=== PATIENT | female | born 1945 | race Caucasian/White ===

== ENCOUNTER → 2019-03-07 | Outpatient (CLI) | payer SELFPAY | PROVIDERS: Family Provider Family Medicine; Visit Provider Podiatrist Foot & Ankle Surgery | DX: Z46.89 Encounter for fitting and adjustment of other specified devices (principal); M21.42 Flat foot [pes planus] (acquired), left foot; M21.41 Flat foot [pes planus] (acquired), right foot | CPT/HCPCS: L3030 ==

== ENCOUNTER 2019-03-29 08:18 | Outpatient (CLI) | payer MEDICARE, OTHER, SELFPAY | END 2019-03-29 08:19 | disposition home or self-care (01) | LOC: ONCMED 08:22 | PROVIDERS: Family Provider Family Medicine; PCP Family Medicine; Visit Provider Internal Medicine Hematology & Oncology | DX: Z45.2 Encounter for adjustment and management of vascular access device (principal) | CPT/HCPCS: 96523 ==

== ENCOUNTER 2019-04-03 14:03 | Outpatient (CLI) | payer MEDICARE, OTHER, SELFPAY ==
--- NOTE | 2019-04-03 14:21 | XRR_ITS ---
PROCEDURE INFORMATION: Exam: XR Right Finger(s) Exam date and time: 04/03/2019 2:45 PM Age: 74 years old Clinical indication: Fingers; Right; Finger(s); Patient HX: Finger pain and swelling, finger locks up; Additional info: Right middle finger pain TECHNIQUE: Imaging protocol: XR Right 3rd finger. Views: Frontal, lateral, and oblique views. COMPARISON: No relevant prior studies available. FINDINGS: Bones/joints: Joint narrowing and dorsal marginal hypertrophy at the 2nd, 3rd and 4th distal interphalangeal joints. Joint narrowing at the central 2nd, 3rd and 4th proximal interphalangeal joints. Soft tissues: Normal. XR/XR finger RT min 2V 74180 IMPRESSION: Primary osteoarthritis.
== END 2019-04-03 14:04 | disposition home or self-care (01) ==
LOC: RAD 14:07
PROVIDERS: Family Provider Family Medicine; PCP Family Medicine; Visit Provider Orthopaedic Surgery
DX: M19.041 Primary osteoarthritis, right hand (principal); M79.644 Pain in right finger(s)
CPT/HCPCS: 73140

== ENCOUNTER 2019-04-26 13:43 | Outpatient (CLI) | payer MEDICARE, OTHER, SELFPAY | END 2019-04-26 13:44 | disposition home or self-care (01) | LOC: ONCMED 13:43 | PROVIDERS: Family Provider Family Medicine; PCP Family Medicine; Visit Provider Internal Medicine Hematology & Oncology | DX: Z45.2 Encounter for adjustment and management of vascular access device (principal) | CPT/HCPCS: 96523 ==

== ENCOUNTER 2019-05-19 08:46 | Outpatient (CLI) | payer MEDICARE, OTHER, SELFPAY | END 2019-05-19 08:47 | disposition home or self-care (01) | LOC: ONCMED 08:48 | PROVIDERS: Family Provider Family Medicine; PCP Family Medicine; Visit Provider Internal Medicine Hematology & Oncology | DX: Z45.2 Encounter for adjustment and management of vascular access device (principal) | CPT/HCPCS: 96523 ==

== ENCOUNTER 2019-06-16 09:32 | Outpatient (CLI) | payer MEDICARE, OTHER, SELFPAY | END 2019-06-16 09:33 | disposition home or self-care (01) | LOC: ONCMED 09:32 | PROVIDERS: Family Provider Family Medicine; PCP Family Medicine; Visit Provider Internal Medicine Hematology & Oncology | DX: Z45.2 Encounter for adjustment and management of vascular access device (principal) | CPT/HCPCS: 96523 ==

== ENCOUNTER 2019-07-03 11:04 | Outpatient (CLI) | payer MEDICARE, OTHER, SELFPAY ==
--- NOTE | 2019-07-03 11:34 | CT_ITS ---
WS: [id number] CT CHEST, ABDOMEN, AND PELVIS TECHNIQUE: Contrast-enhanced CT of the chest, abdomen, and pelvis with coronal and sagittal reformatt ed images. CLINICAL INFORMATION: LYMPHOMA, RESTAGING COMPARISON: CT abdomen July 22, [address] chest abdomen pelvis 04/22 2018 DLP: 2606.[address] scans at [facility] use at least one of these dose optimization techniques: automat ed exposure control; mA and/or kV adjustment per patient size (includes targeted exams where dose is matched to clinical indication); or iterative reconstruction. CT CHEST: No mediastinal or hilar lymphadenopathy. Vascular calcification including coronary. No axillary lymph adenopathy. Normal caliber thoracic aorta. No suspicious pulmonary parenchymal abnormalities. No acut e pulmonary infiltrates. CT ABDOMEN AND PELVIS: Mild diffuse fatty infiltration the liver. Cholecystectomy clips. Normal splee n. Adrenal glands are normal. Normal renal parenchymal enhancement. Normal pancreas. Portal veins and splenic vein are patent. Small esophageal hiatal hernia. Slight normal caliber abdominal aorta. Aortic calcification. Normal visualized sigmoid colon. No evidence of small or large bowel obstructio n. No adenopathy in the upper abdomen. No periaortic or retroperitoneal lymphadenopathy. A no pelvic or inguinal lymphadenopathy. Advanced degenerative arthritis lumbar spine with prior burst fracture L1. Advanced degenerative dewitt ges with disc space narrowing T12-L3. Grade 1 anterolisthesis L4 on L5. CT/CT chest abd pel w con* IMPRESSION: 1. No lymphadenopathy in the chest abdomen or pelvis. 2. No acute pulmonary infiltrates. 3. Mild diffuse fatty infiltration of the liver. 4. Prior cholecystectomy.
[2019-07-03 11:38] LABS: Basophils # 0.1 10^3/uL (0.0-0.1); Basophils % 0.8 %; Eosinophils # 0.2 10^3/uL (0.0-0.8); Eosinophils % 2.7 %; Hematocrit 40.3 % (37.0-47.0); Hemoglobin 12.9 g/dL (11.5-15.3); Mean Corpuscular Hemoglobin 31.4 pg (28.0-34.0); Mean Corpuscular Volume 98.1 fL (81-99); Mean Platelet Volume 8.9 fL (7.4-10.4); Monocytes # 0.7 10^3/uL (0.2-0.9); Monocytes % 10.2 %; Neutrophils # 3.5 10^3/uL (1.8-7.7); Neutrophils % 54.7 %; Nucleated Red Blood Cells % 0 %; Platelet Count 208 10^3/cmm (130-400); Red Blood Count 4.11 10^6/uL (4.1-5.3); Red Cell Distribution Width 14.1 % (12.1-15.1); White Blood Count 6.4 10^3/uL (4.0-10.0)
[2019-07-03] MEDS: iohexol 300 mg/mL 50 mL Btl PO (11:46)
[2019-07-03 12:05] LABS: Alanine Aminotransferase 21 U/L (0-33); Albumin Level 4.2 g/dL (3.5-5.2); Alkaline Phosphatase 96 IU/L (35-105); Anion Gap 17.5 (5-19); Aspartate Amino Transferase 21 U/L (0-32); Blood Urea Nitrogen 22 mg/dL (8-23); Calcium 9.6 mg/dL (8.5-10.5); Carbon Dioxide 23 mmol/L (22-29); Chloride 103 mmol/L (98-107); Glucose 87 mg/dL (65-115); Lactate Dehydrogenase 213 U/L (135-214); Osmolality Calculated 284 mOsm/kg (285-295); Potassium 4.5 mmol/L (3.5-5.1); Sodium 139 mmol/L (136-145); Total Bilirubin 0.3 mg/dL (0.15-1.2); Total Protein 7.2 g/dL (6.6-8.7)
[2019-07-03] MEDS: iohexol 300 mg/mL 100 mL Btl IV (13:35)
== END 2019-07-03 11:05 | disposition home or self-care (01) ==
PROVIDERS: Family Provider Family Medicine; PCP Family Medicine; Visit Provider Internal Medicine Hematology & Oncology
DX: C83.33 Diffuse large B-cell lymphoma, intra-abdominal lymph nodes (principal)
CPT/HCPCS: 36415; 71260; 74177; 80053; 83615; 85025; Q9967

== ENCOUNTER 2019-07-19 09:06 | Outpatient (CLI) | payer MEDICARE, OTHER, SELFPAY ==
--- NOTE | 2019-07-19 10:39 | ONC FU_ITS ---
Dr. Baugh follow up note Patient: Francie Levine Unit #: [id number]: 1945 Dicatated By: Marc Baugh M.D.Date of Visit:July 19, 2019 Onc Med Follow-up/Prog Note History of Present Illness: Mrs. Levine is a 74-year-old female with history of abdominal pain over the last 3 months. The initial impression was musculoskeletal in origin. She was treated with steroids without much relief. In February [address] scan of abdomen pelvis which showed extensive retroperitoneal lymphadenopathy and perinephric mass . On 03/02/[address]-guided biopsy of perinephric mass. 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 Immunohistochemistry positive for CD45, CD20 weakly, BCL-2, MUM-1, PAX-5, and Ki-67. And chest x-ray showed fullness in the mediastinum. Her family reported that Mrs Levine developed mental status changes/confusion and nausea vomiting and progressive abdominal pain. She was admitted to hospital this time and the time of admission her Total calcium was around 15. She was given dose of Zometa and also started on forced diuresis with normal saline and Lasix. She was also given dose of prednisone 100 mg daily. And bone marrow aspiration and biopsy Done on 03/17/2017 showed no evidence of lymphoma involvement. Mrs Levine began treatment with Rituxan-Cytoxan, Doxorubicin, Vincristine and Prednisone on 03/17/2017. x6 till 07/07/17 CT PET scan done on 04/22/2018 showed no evidence of recurrent adenopathy throughout the chest abdomen pelvis. There is some mild soft tissue thickening in the renal sinus fat and proximal ureters although marked improvement since prior exam done on 03/15/2017 may represent residual lymphomatous infiltration of kidney but no worsening of disease or obstruction .Follow-up CT scan of abdomen pelvis done on 07/22/2018 showed no hydronephrosis in either kidney, normal renal parenchymal enhancement No abdominal lymphadenopathy, small incidental fat-containing umbilical hernia Follow-up CT scan of chest abdomen pelvis done on 07/03/2019 showed no lymphadenopathy in the chest abdomen or pelvis No acute pulmonary infiltrates, mild diffuse fatty infiltration of the liver. Came for follow-up, denies any specific complaints, no fever or chills, no nausea or vomiting, no diarrhea constipation, no night sweats, no weight loss,rather weight gain, no recent fevers, no peripheral lymphadenopathy Medications: Claritin 1 Capsule (of 10 mg) Oral daily PRN Allergies: Naproxen and OxyCODONE HCl. Review of Systems: Constitutional - Appetite is good and weight is stable. No fever, chills, hot flashes, or night sweats. Energy level is good, ENMT - No sinus congestion/drainage. No mouth sores. No sore throat or difficulty swallowing, Hematologic/Lymphatic - No abnormal bruising or bleeding, Respiratory - No shortness of breath. No cough. No pleuritic pain or hemoptysis, Cardiovascular - No angina pain. No palpitations, Gastrointestinal - No nausea or vomiting. No heartburn or acid reflux. Patient reports frequent diarrhea, no constipation. No blood in the stool or black stools, Genitourinary (F) - No dysuria or hematuria. No urinary frequency. No urgency or incontinence, Musculoskeletal - Chronic back pain, Integumentary - Denies alopecia, blistering, bruising, dry skin, facial burning, nail changes, photosensitivity, pruritus, rash and urticaria, Neurologic - No headache or dizziness. No numbness/paresthesias or other focal neurologic symptoms, Psychiatric - No anxiety or depression. No insomnia. Vital Signs: Performed on July 19, 2019 09:01 Height - 64.00 in Weight - 262 lbs (HIGH) BSA - 2.19 sq.m BMI - 44.97 (HIGH) Temperature - 98.1 F (LOW) Pulse - 85 /min Respiration - 19 /min BP - 157/90 mm(hg) (HIGH) O2 Sat - 97 % Pain - 4 Performance Status: 0 - Fully active, able to carry on all predisease activities without restrictions. (ECOG) Physical Examination: ENMT - no mouth sores or thrush or jaundice, Hematologic/Lymphatic - no peripheral lymphadenopathy, Respiratory - Lungs are clear, Cardiovascular - Regular rate and rhythm of heart, Abdomen - soft, bowel sounds present, Extremities - no edema or rash. Lab/Imaging: Test performed on Jul 03, 2019 11:25 LDH (Total) 213 U/L Sodium 139 mmol/L Potassium 4.5 mmol/L Chloride 103 mmol/L CO2 23 mmol/L Anion Gap 17.5 BUN 22 mg/dL Creatinine 0.8 mg/dL Cr Clearance (Est) 110.7000 mL/min Glucose 87 mg/dL Calcium 9.6 mg/dL Protein, Total 7.2 g/dL Albumin 4.2 g/dL Globulin 3.0 g/dL Bilirubin, Total 0.3 mg/dL ALT (SGPT) 21 U/L AST (SGOT) 21 U/L Alkaline Phosphatase 96 IU/L WBC 6.4 10 3/uL RBC 4.11 10 6/uL HGB 12.9 g/dL HCT 40.3 % MCV 98.1 fL MCH 31.4 pg MCHC 32.0 g/dL RDW 14.1 % Platelet Count 208 10 3/cmm MPV 8.9 fL Neutrophils 3.5 10 3/uL Lymphocytes 2.0 10 3/uL Monocytes 0.7 10 3/uL Eosinophils 0.2 10 3/uL Basophils 0.1 10 3/uL Neutrophil % 54.7 % Lymphocyte % 31.0 % Monocyte % 10.2 % Eosinophil % 2.7 % Basophils % 0.8 % Impression: diffuse large B-cell lymphoma non-germinal center type with a high proliferative rate, diagnosed on 03/02/2017 with perinephric mass biopsy. Clinically, stage III, with extensive central lymphadenopathy involving both sides of diaphragm No history of B symptoms Bone marrow done on 03/17/2017 showed no evidence of lymphoma involvement immunohistochemistry positive for CD45, CD20 BCL-2, MUM-1, PAX-5, Ki-67. Hypercalcemia probably due to lymphoma. Started on systemic chemotherapy CHOP on 03/17/2017 x 6 , Till 07/07/2017 CT PET scan done on 05/15/2017 showed interval resolution of abdominal lymphomatous adenopathy and no evidence of perinephric mass. Echo done on 05/29/2015 showed ejection fraction 65% no wall motion defectn. Follow-up CT of chest abdomen pelvis done on 04/22/2018 showed no evidence of recurrent adenopathy throughout the chest abdomen pelvis. There is some very mild soft tissue thickening in the renal sinus fat and proximal ureters. Although marked improvement since prior examination from 03/15/2017, this may represent disease dural lymphomatous infiltration of the kidneys. No worsening of disease or obstruction. CT scan of abdomen pelvis done on 07/22/2018 showed no abdominal lymphadenopathy, no hydronephrosis, normal renal parenchymal enhancement, small incidental fat-containing umbilical hernia, lumbar scoliosis with chronic compression of L1 vertebral body unchanged Stable grade 1 anterolisthesis L4 on L5 Plan: Discussed with patient regarding her labs white blood count 6.4 hemoglobin 11.9 hematocrit 40.3 platelets 208,000 CMP within normal limits including LDH and follow-up CT scan of chest abdomen pelvis which showed no evidence of central lymphadenopathy. Clinically, patient is doing well with no signs symptoms suggestive of recurrence of disease, her lab workup is within normal range and her follow-up CT scan of chest abdomen pelvis shows no evidence of lymphadenopathy/organomegaly e.g. confirmed complete remission We'll continue to monitor and she will return to clinic in 6 months with CBC CMP and LDH and patient is requesting Port-A-Cath removal, will refer her to Dr. sales for port removal Patient was advised to watch her weight and consider improving physical activity and watch diet to lose weight. Signed By: Marc Baugh M.D. <<Signature on File>>
== END 2019-07-19 09:07 | disposition home or self-care (01) ==
LOC: ONCMED 09:07
PROVIDERS: PCP Family Medicine; Visit Provider Internal Medicine Hematology & Oncology
DX: Z08 Encounter for follow-up examination after completed treatment for malignant neoplasm (principal); Z85.72 Personal history of non-Hodgkin lymphomas; E83.52 Hypercalcemia; Z92.21 Personal history of antineoplastic chemotherapy; Z79.899 Other long term (current) drug therapy
CPT/HCPCS: G0463

== ENCOUNTER 2019-08-07 11:33 | Day surgery (SDC) | payer MEDICARE, OTHER, SELFPAY ==
[2019-08-04 12:36] VITALS: BMI 45.8
[2019-08-07 11:49] VITALS: BP 176/96; PULSE 76; RESP 16; TEMP 36.6; O2SAT 98
[2019-08-07] MEDS: sodium chloride 0.9% 1,000 ML 100 ML IV (12:01)
--- NOTE | 2019-08-07 12:12 | P.ANESASSM_ITS ---
Pre-Anesthetic Assessment Pre-Anesthetic Assessment: Height/Weight: Height 1.63 m Weight 121.109 kg Temp Pulse Resp BP Pulse Ox 97.9 F 76 16 176/96 98 08/07/19 11:49 08/07/19 11:49 08/07/19 11:49 08/07/19 11:49 08/07/19 11:49 Preop Diagnosis: Port-A-Cath in place Proposed Procedure: Operation Date: 08/07/19 12:30 Proposed Procedures p PORT EXPLANTATION 59854 C83.30(Not Applicable) - Corey Marquez MD Familial anesthetic complications: None Was Beta Carlotta taken within 24 mel rs: N/A Last intake: Intake Last Liquid Date 08/06/19 Last Liquid Time 21:30 Last Solid Date 08/06/19 Last Solid Time 16:30 Social: Social History: No alcohol and No tobacco Exam: Pre-Anes Outpt Exam: alert, oriented x 3, clear to auscultation bilaterally and regular rate & rhythm Airway: Cervical ROM: WNL MP: 2 Dentition: False Pulmonary: Pulmonary: None reported CV/HEM: CV/HEM: None reported : : None reported Hepatic: Hepatic: None reported GI: GI: None reported Metabolic: Metabolic: Morbid obesity Musc/skel: Musc/skel: Lower Back Pain Neuropsych: Neuropsych: None reported Anesthetic Plan: ASA status: 2 Anesthesia: MAC Risk of > 500 ml blood loss (7ml/kg in children): No Meds/Allergies Current Medications: Current Medications Generic Name Dose Route Start Last Admin Trade Name Freq PRN Reason Stop Dose Admin Sodium Chloride 1,000 mls @ 100 m ls/hr 08/07/19 09:00 08/07/19 12:01 Sodium Chloride 0.9% IV 08/08/19 08:59 100 mls/hr .Q10H ANGIE Administration PFSH Anesthesia PFSH: Medical History (Updated 07/27/19 @ 08:33 by Corey Marquez MD) Port-A-Cath in place Surgical History History of left knee replacement Family History Denies family history of Anesthesia complication Bleeding disorder Social History Smoking and tobacco status: former smoker Second hand smoke exposure: No Alcohol intake: never Adopted: No Caregiver/support person: Yes Lives independently: Yes Household members: significant other Housing: House Marital status: / service: No Current occupational status: retired Current occupational exposures/hazards: No Pets and animals: Yes History of recent travel: No Leisure activites: exercise Sexually active: No Current gender identity: Female Cheli/[employer]: [employer] Data Anesthesia Cardiac Studies: No Data to Display
--- NOTE | 2019-08-07 12:28 | W.PM.OPSUD ---
Surgery/Procedure H&P Update DATE OF PROCEDURE: August 07, 2019 DATE H&P PERFORMED: 07/26/19 H&P UPDATE INFORMATION: I have reviewed H&P completed within last 30 days, I have examined patient prior to procedure and No changes to prior documentation PREOP DIAGNOSIS: Port-A-Cath in place PRIMARY INDICATION FOR PROCEDURE: The same PLANNED PROCEDURE: Operation Date: 08/07/19 12:30 Proposed Procedures p PORT EXPLANTATION 52436 C83.30(Not Applicable) - Corey Marquez MD
[2019-08-07] MEDS: lidocaine 2% INJ 20 mL INJECTION (13:00)
--- NOTE | 2019-08-07 13:04 | P.OP_ITS ---
Operative Report Date of procedure: August 07, 2019 Pre-op Diagnosis: Port-A-Cath in place Post-op diagnosis: same Procedure Done: Explantation of left subclavian Port-A-Cath Surgeon: Corey Marquez Houseman: studio technician video operator Morena Circulating nurses Ling and Brittney Anesthesia: MAC (Dmitry Beck) Estimated blood loss (mL): 5 Condition: stable Disposition: same day Brief History: This is a pleasant 74 years old female patient had a Port-A-Cath for treatment of lymphoma and she is done with her therapy, patient was referred back to me for explantation of the port. Plan of care; After thorough history physical examination and reviewing the chart, I counseled the patient for explantation of Port-A-Cath, indications, risks including pneumothorax and injury of major vascular structures, benefits, and alternatives were all discussed with the patient, patient understands and is interested to proceed. Informed consent per chart Assurance and education All questions have been answered Procedure: After identifying the patient in the holding area, informed consent per chart ,patient was then transferred to the operative suite, was placed in supine position, IV propofol was infused by the anesthesia provider and both arms were tucked, prep and drape of left upper chest region was done usual sterile technique. Time-out was done verifying the patient's name/date of /planned procedure and destination after the procedure, all were in agreement. I started by injection of lidocaine 2% at the site of the planned incision started by an transverse incision including the previous scar of the catheter placement located at the left upper chest, after removal of the sutures and dissection at the catheter was then explanted easily,at this point the catheter was removed at the same time direct pressure was applied at the site of the left subclavian stick to prevent bleeding for at least 5 minutes. The entire Port-A-Cath was taken out without complications Thorough irrigation of the left upper chest port was done followed by hemostasis, Closure using 3/0 Vicryl as subdermal sutures was achieved then 4-0 Monocryl to approximate skin edges Dry dressing Patient tolerated the procedure well, count of instruments, needles and sponges were completed at the end of the procedure.And then patient was transferred to the recovery area in stable condition. I Was present for the whole entire procedure
[2019-08-07 13:06] VITALS: BP 128/74; PULSE 72; RESP 16; TEMP 36.3; O2SAT 95
--- NOTE | 2019-08-07 13:09 | ANE.PACU2 ---
Inpatient post-anesthesia follow up: Airway intact: Yes Vital signs: Temperature 97.9 F Pulse Rate 76 Respiratory Rate 16 Blood Pressure 176/96 Pulse Oximetry 98 Oxygen Delivery Me thod Room Air Oxygen Flow Rate Fraction of Inspir ed Oxygen Hydration adequate: Yes Nausea and vomiting: No Pain level: 1 Mental status: Baseline
[2019-08-07 13:22] VITALS: BP 131/92; PULSE 66; RESP 16; TEMP 36.6; O2SAT 98
== END 2019-08-07 13:40 | disposition home or self-care (01) ==
PROVIDERS: PCP Family Medicine; Visit Provider Surgery
PROC: (CPT 36589; principal; 2019-08-07 12:30)
DX: Z45.2 Encounter for adjustment and management of vascular access device (principal); E66.01 Morbid (severe) obesity due to excess calories; Z68.42 Body mass index [BMI] 45.0-49.9, adult; Z87.891 Personal history of nicotine dependence
CPT/HCPCS: 36590; 12345; J0690; J2001; J2704; J3010; J7030

== ENCOUNTER 2020-01-17 14:05 | Outpatient (CLI) | payer MEDICARE, OTHER, SELFPAY ==
[2020-01-17 15:07] LABS: Basophils # 0.1 10^3/uL (0.0-0.1); Basophils % 0.9 %; Eosinophils # 0.2 10^3/uL (0.0-0.8); Eosinophils % 2.9 %; Hematocrit 37.5 % (37.0-47.0); Hemoglobin 11.8 g/dL (11.5-15.3); Lymphocytes # 1.9 10^3/uL (0.8-4.8); Lymphocytes % 32.5 %; Mean Corpuscular HGB Conc 31.5 g/dL (30.0-36.0); Mean Corpuscular Hemoglobin 31.4 pg (28.0-34.0); Mean Corpuscular Volume 99.7 fL (81-99); Mean Platelet Volume 8.8 fL (7.4-10.4); Monocytes # 0.5 10^3/uL (0.2-0.9); Monocytes % 9.2 %; Neutrophils # 3.15 10^3/uL (1.8-7.7); Nucleated Red Blood Cells % 0 %; Platelet Count 210 10^3/cmm (130-400); Red Blood Count 3.76 10^6/uL (4.1-5.3); Red Cell Distribution Width 13.8 % (12.1-15.1); White Blood Count 5.8 10^3/uL (4.0-10.0)
[2020-01-17 15:57] LABS: Alanine Aminotransferase 24 U/L (0-33); Alkaline Phosphatase 102 IU/L (35-105); Anion Gap 13.3 (5-19); Aspartate Amino Transferase 24 U/L (0-32); Blood Urea Nitrogen 22 mg/dL (8-23); Calcium 8.4 mg/dL (8.5-10.5); Carbon Dioxide 22 mmol/L (22-29); Chloride 106 mmol/L (98-107); Globulin 2.3 g/dL (1.3-4.6); Glucose 97 mg/dL (65-115); Lactate Dehydrogenase 212 U/L (135-214); Osmolality Calculated 287 mOsm/kg (285-295); Potassium 4.3 mmol/L (3.5-5.1); Sodium 137 mmol/L (136-145); Total Bilirubin 0.2 mg/dL (0.15-1.2); Total Protein 6.3 g/dL (6.6-8.7)
--- NOTE | 2020-01-19 12:08 | ONC FU_ITS ---
Dr. Baugh follow up note Patient: Francie Levine Unit #: [id number]: 1945 Dicatated By: Marc Baugh M.D.Date of Visit:Jan 17, 2020 Onc Med Follow-up/Prog Note History of Present Illness: Mrs. Levine is a 74-year-old female with history of abdominal pain over the last 3 months. The initial impression was musculoskeletal in origin. She was treated with steroids without much relief. In February [address] scan of abdomen pelvis which showed extensive retroperitoneal lymphadenopathy and perinephric mass . On 03/02/[address]-guided biopsy of perinephric mass. 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 Immunohistochemistry positive for CD45, CD20 weakly, BCL-2, MUM-1, PAX-5, and Ki-67. And chest x-ray showed fullness in the mediastinum. Her family reported that Mrs Levine developed mental status changes/confusion and nausea vomiting and progressive abdominal pain. She was admitted to hospital this time and the time of admission her Total calcium was around 15. She was given dose of Zometa and also started on forced diuresis with normal saline and Lasix. She was also given dose of prednisone 100 mg daily. And bone marrow aspiration and biopsy Done on 03/17/2017 showed no evidence of lymphoma involvement. Mrs Levine began treatment with Rituxan-Cytoxan, Doxorubicin, Vincristine and Prednisone on 03/17/2017. x6 till 07/07/17 CT PET scan done on 04/22/2018 showed no evidence of recurrent adenopathy throughout the chest abdomen pelvis. There is some mild soft tissue thickening in the renal sinus fat and proximal ureters although marked improvement since prior exam done on 03/15/2017 may represent residual lymphomatous infiltration of kidney but no worsening of disease or obstruction .Follow-up CT scan of abdomen pelvis done on 07/22/2018 showed no hydronephrosis in either kidney, normal renal parenchymal enhancement No abdominal lymphadenopathy, small incidental fat-containing umbilical hernia Follow-up CT scan of chest abdomen pelvis done on 07/03/2019 showed no lymphadenopathy in the chest abdomen or pelvis No acute pulmonary infiltrates, mild diffuse fatty infiltration of the liver. Came for follow-up, denies any specific complaints, no fever chills, no nausea or vomiting, no diarrhea or constipation, no night sweats, no recurrent fever, no weight loss. Medications: Claritin 1 Capsule (of 10 mg) Oral daily PRN Allergies: Naproxen and OxyCODONE HCl. Review of Systems: Review of Systems is not available for this patient. Vital Signs: Performed on Jan 17, 2020 15:28 Height - 64.00 in Weight - lbs Temperature - 97.9 F (LOW) Pulse - 82 /min Respiration - 24 /min BP - 174/87 mm(hg) (HIGH) O2 Sat - 98 % Pain - 0 Performance Status: 0 - Fully active, able to carry on all predisease activities without restrictions. (ECOG) Physical Examination: ENMT - No mouth sores, no thrush, no jaundice, no cervical lymphadenopathy, Respiratory - Lungs are clear to auscultation, Cardiovascular - Regular rate and rhythm of heart, Abdomen - Soft, bowel sounds present, Extremities - No visible edema. Lab/Imaging: Most recent lab results are not available for this patient. Impression: diffuse large B-cell lymphoma non-germinal center type with a high proliferative rate, diagnosed on 03/02/2017 with perinephric mass biopsy. Clinically, stage III, with extensive central lymphadenopathy involving both sides of diaphragm No history of B symptoms Bone marrow done on 03/17/2017 showed no evidence of lymphoma involvement immunohistochemistry positive for CD45, CD20 BCL-2, MUM-1, PAX-5, Ki-67. Hypercalcemia probably due to lymphoma. Started on systemic chemotherapy CHOP on 03/17/2017 x 6 , Till 07/07/2017 CT PET scan done on 05/15/2017 showed interval resolution of abdominal lymphomatous adenopathy and no evidence of perinephric mass. Echo done on 05/29/2015 showed ejection fraction 65% no wall motion defectn. Follow-up CT of chest abdomen pelvis done on 04/22/2018 showed no evidence of recurrent adenopathy throughout the chest abdomen pelvis. There is some very mild soft tissue thickening in the renal sinus fat and proximal ureters. Although marked improvement since prior examination from 03/15/2017, this may represent disease dural lymphomatous infiltration of the kidneys. No worsening of disease or obstruction. CT scan of abdomen pelvis done on 07/22/2018 showed no abdominal lymphadenopathy, no hydronephrosis, normal renal parenchymal enhancement, small incidental fat-containing umbilical hernia, lumbar scoliosis with chronic compression of L1 vertebral body unchanged Stable grade 1 anterolisthesis L4 on L5 Plan: Discussed with patient regarding her labs white blood count 5.8 hemoglobin 11.8 hematocrit 37.5 platelets 210,000 CMP/LDH is pending Clinically, patient is doing well with no new signs symptoms, no B symptoms her lab work-up looks reasonable but her CMP and LDH was pending, has Port-A-Cath has been removed, she will return to clinic in 6 months with CBC CMP and LDH Signed By: Marc Baugh M.D. <<Signature on File>>
== END 2020-01-17 14:06 | disposition home or self-care (01) ==
LOC: ONCMED 14:08
PROVIDERS: PCP Family Medicine; Visit Provider Internal Medicine Hematology & Oncology
DX: C85.13 Unspecified B-cell lymphoma, intra-abdominal lymph nodes (principal); E83.52 Hypercalcemia; Z92.21 Personal history of antineoplastic chemotherapy
CPT/HCPCS: 36415; 80053; 83615; 85025; G0463

== ENCOUNTER 2020-04-15 09:21 | Outpatient (CLI) | payer MEDICARE, OTHER, SELFPAY ==
--- NOTE | 2020-04-15 09:54 | A.OFFVIS_ITS ---
Patient Information Referred by: Cam Aquino Symptom onset date: 04/12/20 COVID 19 common symptoms: positive fever(s) and cough Severity: mild and moderate Other details: 97%RA Rapid Covid Cam Aquino positive on 5th [facility] COVID test results: No Data to Display outside results available, scanned Criteria/Plan Inclusion/Exclusion Criteria weight >/= 40kg, + direct test </= 10 days ago and symptom onset </= 10 days ago age >/= 65 not requiring hospitalization, not requiring oxygen (if not chronically on oxygen) and no increase oxygen requirement (if chronically on oxygen) Patient education patient/caregiver received/reviewed fact sheet, Emergency Use A uthorization/unapproved drug status discussed with patient/caregiver, alternatives to this treatment discussed with patient/caregiver, risks and benefits of medication reviewed with patient/caregiver, patient/caregiver given opportunity for questions, which were answered and patient/caregiver consents to receiving Monoclonal Antibody Treatment Plan for treatment Meets criteria for Monoclonal Antibody infusion Ordering Monoclonal Antibody infusion for today
[2020-04-15 09:58] VITALS: BP 171/97; PULSE 81; RESP 24; TEMP 35.8; O2SAT 97; BMI 46.3
[2020-04-15 11:15] VITALS: BP 136/83; PULSE 67; RESP 17; TEMP 36.1; O2SAT 96
[2020-04-15 12:12] VITALS: BP 138/81; PULSE 66; RESP 18; O2SAT 96
== END 2020-04-15 12:10 | disposition home or self-care (01) ==
LOC: OPS 09:23
PROVIDERS: PCP Family Medicine; Referring Provider Nurse Practitioner Family; Visit Provider Nurse Practitioner Family
DX: U07.1 COVID-19 (principal)
CPT/HCPCS: 96365

== ENCOUNTER 2020-07-23 14:23 | Outpatient (CLI) | payer MEDICARE, OTHER, SELFPAY ==
[2020-07-23 15:06] LABS: Basophils # 0.1 10^3/uL (0.0-0.1); Eosinophils # 0.4 10^3/uL (0.0-0.8); Eosinophils % 6.1 %; Hematocrit 39.1 % (37.0-47.0); Hemoglobin 12.3 g/dL (11.5-15.3); Lymphocytes # 1.7 10^3/uL (0.8-4.8); Lymphocytes % 27.1 %; Mean Corpuscular HGB Conc 31.5 g/dL (30.0-36.0); Mean Corpuscular Hemoglobin 31.1 pg (28.0-34.0); Mean Platelet Volume 9.2 fL (7.4-10.4); Monocytes # 0.6 10^3/uL (0.2-0.9); Monocytes % 9.1 %; Neutrophils # 3.52 10^3/uL (1.8-7.7); Neutrophils % 56.1 %; Nucleated Red Blood Cells % 0 %; Platelet Count 254 10^3/cmm (130-400); Red Blood Count 3.95 10^6/uL (4.1-5.3); Red Cell Distribution Width 14.4 % (12.1-15.1); White Blood Count 6.3 10^3/uL (4.0-10.0)
[2020-07-23 15:53] LABS: Alanine Aminotransferase 13 U/L (0-33); Albumin Level 3.9 g/dL (3.5-5.2); Alkaline Phosphatase 83 IU/L (35-105); Anion Gap 17.4 (5-19); Aspartate Amino Transferase 18 U/L (0-32); Blood Urea Nitrogen 19 mg/dL (8-23); Calcium 8.4 mg/dL (8.5-10.5); Carbon Dioxide 23 mmol/L (22-29); Chloride 105 mmol/L (98-107); Globulin 3.1 g/dL (1.3-4.6); Glucose 94 mg/dL (65-115); Osmolality Calculated 294 mOsm/kg (285-295); Potassium 4.4 mmol/L (3.5-5.1); Sodium 141 mmol/L (136-145); Total Bilirubin 0.2 mg/dL (0.15-1.2)
--- NOTE | 2020-07-23 16:19 | ONC FU_ITS ---
Dr. Baugh follow up note Patient: Francie Levine Unit #: [id number]: 1945 Dicatated By: Marc Baugh M.D.Date of Visit:July 23, 2020 Onc Med Follow-up/Prog Note History of Present Illness: Mrs. Levine is a 75-year-old female with history of abdominal pain over the last 3 months. The initial impression was musculoskeletal in origin. She was treated with steroids without much relief. In February [address] scan of abdomen pelvis which showed extensive retroperitoneal lymphadenopathy and perinephric mass . On 03/02/[address]-guided biopsy of perinephric mass. 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 Immunohistochemistry positive for CD45, CD20 weakly, BCL-2, MUM-1, PAX-5, and Ki-67. And chest x-ray showed fullness in the mediastinum. Her family reported that Mrs Levine developed mental status changes/confusion and nausea vomiting and progressive abdominal pain. She was admitted to hospital this time and the time of admission her Total calcium was around 15. She was given dose of Zometa and also started on forced diuresis with normal saline and Lasix. She was also given dose of prednisone 100 mg daily. And bone marrow aspiration and biopsy Done on 03/17/2017 showed no evidence of lymphoma involvement. Mrs Levine began treatment with Rituxan-Cytoxan, Doxorubicin, Vincristine and Prednisone on 03/17/2017. x6 till 07/07/17 CT PET scan done on 04/22/2018 showed no evidence of recurrent adenopathy throughout the chest abdomen pelvis. There is some mild soft tissue thickening in the renal sinus fat and proximal ureters although marked improvement since prior exam done on 03/15/2017 may represent residual lymphomatous infiltration of kidney but no worsening of disease or obstruction .Follow-up CT scan of abdomen pelvis done on 07/22/2018 showed no hydronephrosis in either kidney, normal renal parenchymal enhancement No abdominal lymphadenopathy, small incidental fat-containing umbilical hernia Follow-up CT scan of chest abdomen pelvis done on 07/03/2019 showed no lymphadenopathy in the chest abdomen or pelvis No acute pulmonary infiltrates, mild diffuse fatty infiltration of the liver. Came for follow-up, denies any specific complaints, no fever chills, no nausea vomiting, no diarrhea or constipation for her chronic back pain she recently underwent nerve stimulator placement in her spine. Denies any night sweats denies any weight loss denies any recurrent fever denies any peripheral lymphadenopathy or abdominal fullness Medications: Claritin 1 Capsule (of 10 mg) Oral daily PRN Allergies: Naproxen and OxyCODONE HCl. Review of Systems: Review of Systems is not available for this patient. Vital Signs: Performed on July 23, 2020 15:42 Height - 64.00 in Weight - 267 lbs (HIGH) BSA - 2.21 sq.m BMI - 45.83 (HIGH) Temperature - 98.0 F (LOW) Pulse - 99 /min Respiration - 18 /min BP - 162/91 mm(hg) (HIGH) O2 Sat - 98 % Pain - 0 Performance Status: Perf. Status is not available for this patient. Physical Examination: ENMT - No mouth sores, no thrush, no jaundice, No cervical or axillary lymphadenopathy, Respiratory - Lungs are clear to auscultation, Cardiovascular - Regular rate and rhythm of heart, Abdomen - Soft, bowel sounds present, Extremities - No visible edema. Lab/Imaging: Most recent lab results are not available for this patient. Impression: diffuse large B-cell lymphoma non-germinal center type with a high proliferative rate, diagnosed on 03/02/2017 with perinephric mass biopsy. Clinically, stage III, with extensive central lymphadenopathy involving both sides of diaphragm No history of B symptoms Bone marrow done on 03/17/2017 showed no evidence of lymphoma involvement immunohistochemistry positive for CD45, CD20 BCL-2, MUM-1, PAX-5, Ki-67. Hypercalcemia probably due to lymphoma. Started on systemic chemotherapy [facility] on 03/17/2017 x 6 , Till 07/07/2017 CT PET scan done on 05/15/2017 showed interval resolution of abdominal lymphomatous adenopathy and no evidence of perinephric mass. Echo done on 05/29/2015 showed ejection fraction 65% no wall motion defectn. Follow-up CT of chest abdomen pelvis done on 04/22/2018 showed no evidence of recurrent adenopathy throughout the chest abdomen pelvis. There is some very mild soft tissue thickening in the renal sinus fat and proximal ureters. Although marked improvement since prior examination from 03/15/2017, this may represent disease dural lymphomatous infiltration of the kidneys. No worsening of disease or obstruction. CT scan of abdomen pelvis done on 07/22/2018 showed no abdominal lymphadenopathy, no hydronephrosis, normal renal parenchymal enhancement, small incidental fat-containing umbilical hernia, lumbar scoliosis with chronic compression of L1 vertebral body unchanged Stable grade 1 anterolisthesis L4 on L5 Plan: Discussed with patient regarding her labs white blood count 6.3 hemoglobin 12.3 compared to 11.8 previously, hematocrit 39.1 platelets 254,000 CMP within normal limits Clinically, patient doing well with no new signs symptoms, no B symptoms suggestive of recurrence of disease, her lab work-up is within normal range, will continue to monitor return to clinic in 6 months with CBC CMP/LDH Signed By: Marc Baugh M.D. <<Signature on File>>
== END 2020-07-23 14:24 | disposition home or self-care (01) ==
LOC: ONCMED 14:25
PROVIDERS: PCP Family Medicine; Visit Provider Internal Medicine Hematology & Oncology
DX: Z08 Encounter for follow-up examination after completed treatment for malignant neoplasm (principal); Z85.72 Personal history of non-Hodgkin lymphomas; E83.52 Hypercalcemia; Z92.21 Personal history of antineoplastic chemotherapy
CPT/HCPCS: 36415; 80053; 85025; 99214

== ENCOUNTER 2021-02-14 08:15 | Emergency (ER) | payer MEDICARE, OTHER, SELFPAY ==
[2021-02-14 08:30] VITALS: BP 156/80; PULSE 101; RESP 20; TEMP 37.4; O2SAT 95; BMI 44.6
[2021-02-14 08:42] VITALS: BP 156/80; PULSE 102; RESP 19; TEMP 37.4; O2SAT 95
--- NOTE | 2021-02-14 08:43 | W.ED.GENADLT ---
Documented by User: ELVIN Gray 02/14/21 11:30 HPI - General Adult General: Chief complaint: General Medical Stated complaint: Hurting all over POSS Dehydration Time Seen by Provider: 02/14/21 08:24 History of Present Illness: HPI narrative: Patient states she started with major joint pain last night. Says she had a drink all day yesterday because she was busy and her stomach is little bit upset. She started drinking some fluid last night but feels she got behind in her required intake. Patient says she does not feel good today is just achy. Denies vomiting diarrhea or urination type problems states she is not had a fever. Says just that her joints are hurting. Onset (ago): hour(s) Severity: moderate Quality: aching Pain Consistency: constant Relieving factors: none Associated symptoms: Reports nausea; Deny chest pain, dyspnea, headache(s) or rash Review of Systems Const: Denies: fever(s), chills or body aches Eyes: Denies: change in vision or blurry vision ENMT: Denies: throat pain or nasal congestion Card: Denies: chest pain or dyspnea on exertion Resp: Denies: dyspnea, productive cough or non-productive cough GI: Reports: nausea Musc: Reports: joint pain (Most major joints, denies swelling.); Denies: extremity pain Skin/Breast: Denies: rash Neuro: Denies: headache(s) Psych: Denies: anxiety or depression Wally/Lymph: Denies: easy bruising PFSH ED PFSH: Medical History (Updated 02/14/21 @ 11:26 by ELVIN Gray) Port-A-Cath in place Surgical History History of left knee replacement Family History Denies family history of Anesthesia complication Bleeding disorder Social History Smoking and tobacco status: former smoker Second hand smoke exposure: No Alcohol intake: never Adopted: No Caregiver/support person: Yes Lives independently: Yes Household members: significant other Housing: House Marital status: / service: No Current occupational status: retired Current occupational exposures/hazards: No Pets and animals: Yes History of recent travel: No Leisure activites: exercise Sexually active: No Current gender identity: Female Cheli/Roman Catholic: Muslim Physical Exam Const: COMMON NORMALS: no acute distress (Child appears very well is playful in no distress) GENERAL APPEARANCE: cooperative HENMT: COMMON NORMALS: normocephalic, external ears normal, EAC's normal, TM's normal bilaterally and Normal external nose present HEAD & SCALP: normal to inspection and normocephalic FACE & SINUS: normal facial exam NOSE: Normal external nose present and No nasal discharge present EXTERNAL EAR: Yes external ears normal EXTERNAL AUDITORY CANAL: EAC's normal TYMPANIC MEMBRANE: TM's normal bilaterally MOUTH: Normal oral and palatal mucosa present THROAT: posterior oropharynx normal Eye: COMMON NORMALS: conjunctivae normal CONJUNCTIVA: Yes conjunctivae normal Lymph: LYMPHATIC: no lymphadenopathy noted Chest: COMMONS NORMALS: normal inspection of the chest Resp: COMMON NORMALS: normal respiratory effort, No retractions, No use of accessory muscles and clear to auscultation bilaterally AUSCULTATION: clear to auscultation bilaterally Cardio: COMMON NORMALS: regular rate and regular rhythm RATE: regular rate RHYTHM: regular rhythm GI: COMMON NORMALS: Normal to inspection, nondistended, normoactive bowel sounds present Extremity: COMMON NORMALS: normal to inspection Skin: COMMON NORMALS: no rashes or lesions noted GENERAL SKIN EXAM: no rashes or lesions noted Course Vital Signs: Vital signs: Vital Signs Temperature 98.7 F 02/14/21 12:44 Pulse Rate 87 02/14/21 12:44 Respiratory Rate 18 02/14/21 12:44 Blood Pressure 106/44 02/14/21 12:44 Pulse Oximetry 87 L 02/14/21 12:44 MDM - General Adult MDM Narrative: Medical decision making narrative: Patient presents here with joint pain. Vital signs are stable. Patient felt she got dehydrated yesterday did not drink any water while she is out and about doing a lot. Patient recently been on prednisone and she is unsure the dose and also taken Augmentin. Anion gap is closed high normal. CRP is elevated 125. White count is elevated 15.6 with a slight left shift and you a is positive for mild UTI. Think combination of her taking prednisone and possibly getting dehydrated and a mild UTI have contributed to how she fell today. She did feel better with a liter of fluid and Toradol 15 mg IV. Patient encouraged to drink fluids, follow-up Dr. Garibay first next week and also Dr. Baugh her oncologist for reevaluation of her lymphoma that is been in remission. The case was discussed with Dr. Pederson her ER about possibility of recurrence of lymphoma and labs do not tend to point at that with her calcium level being normal lung other labs. Lab Data: Labs: Lab Results 02/14/21 02/14/21 02/14/21 09:20 09:20 10:11 WBC RBC Hgb Hct MCV MCH MCHC RDW Plt Count MPV Neut % (Auto) Lymph % (Auto) [place] % (Auto) Eos % (Auto) Baso % (Auto) Neut # (Auto) Lymph # (Auto) [place] # (Auto) Eos # (Auto) Baso # (Auto) Nucleated RBC % (a uto) Nucleated RBCs # Sodium Potassium Chloride Carbon Dioxide Anion Gap BUN Creatinine GFR Calculation Glucose Calculated Osmolal ity Calcium Total Bilirubin AST ALT Alkaline Phosphata se C-Reactive Protein Total Protein Albumin Globulin Urine Color Straw (Yellow) Urine Appearance Clear (CLEAR) Urine pH 5 (5-7) Ur Specific Gravit y 1.010 (1.005-1.030) Urine Protein Neg (Negative) Urine Glucose (UA) Norm (Normal) Urine Ketones Negative (Negative) Urine Blood 2+ H (Negative) Urine Nitrate Negative (Negative) Urine Bilirubin Neg (Negative) Urine Urobilinogen Norm mg/dL mg/dL (Negative) Ur Leukocyte Noris ase 2+ H (Negative) Urine RBC 10-15 /hpf H /hpf (0-2) Urine WBC 15-25 /hpf H /hpf (0-5) Ur Squamous Epith Cells 0-4 /hpf H /hpf (0-5) Amorphous Sediment Not Reportable Urine Bacteria Trace /hpf /hpf (NONE) Influenza Type A A g Negative (Negative) Influenza Type B A g Negative (Negative) SARS-CoV-2 Ag (Rap id) Negative (Negative) 02/14/21 02/14/21 10:20 10:20 WBC 15.6 10^3/uL H 10 ^3/uL (4.0-10.0) RBC 4.31 10^6/uL 10^6 /uL (4.1-5.3) Hgb 13.6 g/dL g/dL (11.5-15.3) Hct 42.4 % % (37.0-47.0) MCV 98.4 fl fl (81-99) MCH 31.6 pg pg (28.0-34.0) MCHC 32.1 g/dL g/dL (30.0-36.0) RDW 14.3 % % (12.1-15.1) Plt Count 219 10^3/cmm 10^3 /cmm (130-400) MPV 9.3 fL fL (7.4-10.4) Neut % (Auto) 79.6 % % Lymph % (Auto) 14.1 % % [place] % (Auto) 5.2 % % Eos % (Auto) 0.3 % % Baso % (Auto) 0.4 % % Neut # (Auto) 12.43 10^3/uL H 1 0^3/uL (1.8-7.7) Lymph # (Auto) 2.2 10^3/uL 10^3/ uL (0.8-4.8) [place] # (Auto) 0.8 10^3/uL 10^3/ uL (0.2-0.9) Eos # (Auto) 0.1 10^3/uL 10^3/ uL (0.0-0.8) Baso # (Auto) 0.1 10^3/uL 10^3/ uL (0.0-0.1) Nucleated RBC % (a uto) 0 % % Nucleated RBCs # 0.0 /100WBC /100W BC Sodium 136 mmol/L mmol/L (136-145) Potassium 4.6 mmol/L mmol/L (3.5-5.1) Chloride 103 mmol/L mmol/L (98-107) Carbon Dioxide 20 mmol/L L mmol/ L (22-29) Anion Gap 17.6 (5-19) BUN 15 mg/dL mg/dL (8-23) Creatinine 0.7 mg/dL mg/dL (0.5-0.9) GFR Calculation Not Reportable Glucose 106 mg/dL mg/dL (65-115) Calculated Osmolal ity 283 mOsm/kg L mOs m/kg (285-295) Calcium 8.3 mg/dL L mg/dL (8.5-10.5) Total Bilirubin 0.5 mg/dL mg/dL (0.15-1.2) AST 23 U/L U/L (0-32) ALT 24 U/L U/L (0-33) Alkaline Phosphata se 77 IU/L IU/L (35-105) C-Reactive Protein 125.2 mg/L H mg/L (0.0-4.9) Total Protein 6.8 g/dL g/dL (6.6-8.7) Albumin 4.0 g/dL g/dL (3.5-5.2) Globulin 2.8 g/dL g/dL (1.3-4.6) Urine Color Urine Appearance Urine pH Ur Specific Gravit y Urine Protein Urine Glucose (UA) Urine Ketones Urine Blood Urine Nitrate Urine Bilirubin Urine Urobilinogen Ur Leukocyte Noris ase Urine RBC Urine WBC Ur Squamous Epith Cells Amorphous Sediment Urine Bacteria Influenza Type A A g Influenza Type B A g SARS-CoV-2 Ag (Rap id) Discharge Plan Discharge Patient Disposition: Home Clinical Impression: Acute UTI Joint pain Qualifiers: Joint pain location: other joint Qualified Code(s): M25.59 - Pain in other specified joint Condition: Stable Prescriptions: New cephalexin 500 mg capsule 500 mg PO Q8H 7 Days Qty: 21 RF: 0 Celebrex 100 mg capsule 100 mg PO BID Qty: 20 RF: 0 Discontinued amoxicillin-pot clavulanate 875-125 mg tablet 1 tab PO BID RF: 0 No Action Claritin 10 mg Tablet 10 mg PO DAILY PRN (Reason: Allergy Symptoms) RF: 0 Discharge Orders: Discharge ED (Routine); Ordered 02/14/21 Ordered By: Artemio Shannon Referrals: Nils Gambino, [Primary Care Provider] - Discharge Diet: Usual diet Discharge Activity: Increase activity as tolerated Activity Restrictions/Additional Instructions: Follow-up with medical provider as directed. Take medications as prescribed. Return to the ER or your medical provider if condition worsens. Please read and understand discharge instructions. If any questions ask please. Stop Augmentin. Take new antibiotic Keflex. Do not take any more prednisone. Follow-up Dr. Garibay or return here if worsening symptoms. Coding Level of Care Code ED Business [employer] Faculty Member for Chg Fwd Exam Comprehensive Documented by User: Edwin Cruz DO 02/14/21 16:02 HPI - General Adult General: Chief complaint: General Medical Stated complaint: Hurting all over POSS Dehydration Time Seen by Provider: 02/14/21 08:24 PFSH ED PFSH: Medical History (Updated 02/14/21 @ 11:26 by ELVIN Gray) Port-A-Cath in place Surgical History History of left knee replacement Family History Denies family history of Anesthesia complication Bleeding disorder Social History Smoking and tobacco status: former smoker Second hand smoke exposure: No Alcohol intake: never Adopted: No Caregiver/support person: Yes Lives independently: Yes Household members: significant other Housing: House Marital status: / service: No Current occupational status: retired Current occupational exposures/hazards: No Pets and animals: Yes History of recent travel: No Leisure activites: exercise Sexually active: No Current gender identity: Female Cheli/Roman Catholic: Muslim Course Vital Signs: Vital signs: Vital Signs Temperature 98.7 F 02/14/21 12:44 Pulse Rate 87 02/14/21 12:44 Respiratory Rate 18 02/14/21 12:44 Blood Pressure 106/44 02/14/21 12:44 Pulse Oximetry 87 L 02/14/21 12:44 MDM - General Adult MDM Narrative: Medical decision making narrative: Chart reviewed and patient discussed with midlevel. Agree with assessment and plan. Lab Data: Labs: Lab Results 02/14/21 02/14/21 02/14/21 09:20 09:20 10:11 WBC RBC Hgb Hct MCV MCH MCHC RDW Plt Count MPV Neut % (Auto) Lymph % (Auto) [place] % (Auto) Eos % (Auto) Baso % (Auto) Neut # (Auto) Lymph # (Auto) [place] # (Auto) Eos # (Auto) Baso # (Auto) Nucleated RBC % (a uto) Nucleated RBCs # Sodium Potassium Chloride Carbon Dioxide Anion Gap BUN Creatinine GFR Calculation Glucose Calculated Osmolal ity Calcium Total Bilirubin AST ALT Alkaline Phosphata se C-Reactive Protein Total Protein Albumin Globulin Urine Color Straw (Yellow) Urine Appearance Clear (CLEAR) Urine pH 5 (5-7) Ur Specific Gravit y 1.010 (1.005-1.030) Urine Protein Neg (Negative) Urine Glucose (UA) Norm (Normal) Urine Ketones Negative (Negative) Urine Blood 2+ H (Negative) Urine Nitrate Negative (Negative) Urine Bilirubin Neg (Negative) Urine Urobilinogen Norm mg/dL mg/dL (Negative) Ur Leukocyte Noris ase 2+ H (Negative) Urine RBC 10-15 /hpf H /hpf (0-2) Urine WBC 15-25 /hpf H /hpf (0-5) Ur Squamous Epith Cells 0-4 /hpf H /hpf (0-5) Amorphous Sediment Not Reportable Urine Bacteria Trace /hpf /hpf (NONE) Influenza Type A A g Negative (Negative) Influenza Type B A g Negative (Negative) SARS-CoV-2 Ag (Rap id) Negative (Negative) 02/14/21 02/14/21 10:20 10:20 WBC 15.6 10^3/uL H 10 ^3/uL (4.0-10.0) RBC 4.31 10^6/uL 10^6 /uL (4.1-5.3) Hgb 13.6 g/dL g/dL (11.5-15.3) Hct 42.4 % % (37.0-47.0) MCV 98.4 fl fl (81-99) MCH 31.6 pg pg (28.0-34.0) MCHC 32.1 g/dL g/dL (30.0-36.0) RDW 14.3 % % (12.1-15.1) Plt Count 219 10^3/cmm 10^3 /cmm (130-400) MPV 9.3 fL fL (7.4-10.4) Neut % (Auto) 79.6 % % Lymph % (Auto) 14.1 % % [place] % (Auto) 5.2 % % Eos % (Auto) 0.3 % % Baso % (Auto) 0.4 % % Neut # (Auto) 12.43 10^3/uL H 1 0^3/uL (1.8-7.7) Lymph # (Auto) 2.2 10^3/uL 10^3/ uL (0.8-4.8) [place] # (Auto) 0.8 10^3/uL 10^3/ uL (0.2-0.9) Eos # (Auto) 0.1 10^3/uL 10^3/ uL (0.0-0.8) Baso # (Auto) 0.1 10^3/uL 10^3/ uL (0.0-0.1) Nucleated RBC % (a uto) 0 % % Nucleated RBCs # 0.0 /100WBC /100W BC Sodium 136 mmol/L mmol/L (136-145) Potassium 4.6 mmol/L mmol/L (3.5-5.1) Chloride 103 mmol/L mmol/L (98-107) Carbon Dioxide 20 mmol/L L mmol/ L (22-29) Anion Gap 17.6 (5-19) BUN 15 mg/dL mg/dL (8-23) Creatinine 0.7 mg/dL mg/dL (0.5-0.9) GFR Calculation Not Reportable Glucose 106 mg/dL mg/dL (65-115) Calculated Osmolal ity 283 mOsm/kg L mOs m/kg (285-295) Calcium 8.3 mg/dL L mg/dL (8.5-10.5) Total Bilirubin 0.5 mg/dL mg/dL (0.15-1.2) AST 23 U/L U/L (0-32) ALT 24 U/L U/L (0-33) Alkaline Phosphata se 77 IU/L IU/L (35-105) C-Reactive Protein 125.2 mg/L H mg/L (0.0-4.9) Total Protein 6.8 g/dL g/dL (6.6-8.7) Albumin 4.0 g/dL g/dL (3.5-5.2) Globulin 2.8 g/dL g/dL (1.3-4.6) Urine Color Urine Appearance Urine pH Ur Specific Gravit y Urine Protein Urine Glucose (UA) Urine Ketones Urine Blood Urine Nitrate Urine Bilirubin Urine Urobilinogen Ur Leukocyte Noris ase Urine RBC Urine WBC Ur Squamous Epith Cells Amorphous Sediment Urine Bacteria Influenza Type A A g Influenza Type B A g SARS-CoV-2 Ag (Rap id) Discharge Plan Discharge Patient Disposition: Home Clinical Impression: Acute UTI Joint pain Qualifiers: Joint pain location: other joint Qualified Code(s): M25.59 - Pain in other specified joint Condition: Stable Prescriptions: New cephalexin 500 mg capsule 500 mg PO Q8H 7 Days Qty: 21 RF: 0 Celebrex 100 mg capsule 100 mg PO BID Qty: 20 RF: 0 Discontinued amoxicillin-pot clavulanate 875-125 mg tablet 1 tab PO BID RF: 0 No Action Claritin 10 mg Tablet 10 mg PO DAILY PRN (Reason: Allergy Symptoms) RF: 0 Discharge Orders: Discharge ED (Routine); Ordered 02/14/21 Ordered By: Artemio Shannon Referrals: Nils Gambino DO [Primary Care Provider] - Discharge Diet: Usual diet Discharge Activity: Increase activity as tolerated Activity Restrictions/Additional Instructions: Follow-up with medical provider as directed. Take medications as prescribed. Return to the ER or your medical provider if condition worsens. Please read and understand discharge instructions. If any questions ask please. Stop Augmentin. Take new antibiotic Keflex. Do not take any more prednisone. Follow-up Dr. Garibay or return here if worsening symptoms. Coding Level of Care Code ED [employer] Faculty Member for Tono Mejia Exam Comprehensive
[2021-02-14 09:49] LABS: Influenza A by IFA Negative (Negative); Influenza B by IFA Negative (Negative); SARS Covid-2 Antigen Negative (Negative)
[2021-02-14 10:28] LABS: Basophils # 0.1 10^3/uL (0.0-0.1); Basophils % 0.4 %; Eosinophils # 0.1 10^3/uL (0.0-0.8); Eosinophils % 0.3 %; Hematocrit 42.4 % (37.0-47.0); Hemoglobin 13.6 g/dL (11.5-15.3); Lymphocytes # 2.2 10^3/uL (0.8-4.8); Lymphocytes % 14.1 %; Mean Corpuscular HGB Conc 32.1 g/dL (30.0-36.0); Mean Corpuscular Hemoglobin 31.6 pg (28.0-34.0); Mean Corpuscular Volume 98.4 fl (81-99); Mean Platelet Volume 9.3 fL (7.4-10.4); Monocytes # 0.8 10^3/uL (0.2-0.9); Monocytes % 5.2 %; Neutrophils # 12.43 10^3/uL (1.8-7.7); Neutrophils % 79.6 %; Nucleated Red Blood Cells % 0 %; Platelet Count 219 10^3/cmm (130-400); Red Blood Count 4.31 10^6/uL (4.1-5.3); Red Cell Distribution Width 14.3 % (12.1-15.1); White Blood Count 15.6 10^3/uL (4.0-10.0)
[2021-02-14 10:35] LABS: Add Urine Microscopic? YES; Bilirubin Urine Neg (Negative); Blood Urine 2+ (Negative); Glucose Urine UA Norm (Normal); Ketones Urine Negative (Negative); Leukocyte Esterase Urine 2+ (Negative); Nitrate Urine Negative (Negative); Protein Urine Neg (Negative); Urine Appearance Clear (CLEAR); Urine Color Straw (Yellow); Urobilinogen Urine Norm (Negative); pH Urine 5 (5-7)
[2021-02-14 10:41] LABS: Squamous Epithelial Cell Urine 0-4 /hpf (0-5); WBC Urine 15-25 /hpf (0-5)
[2021-02-14 10:42] LABS: Add Urine Culture? Yes; Bacteria Urine TRACE /hpf
[2021-02-14] MEDS: ondansetron 2 mg/ML SDV 2 mL 4 MG IVP (10:42)
[2021-02-14] MEDS: sodium chloride 0.9% 1,000 ML 999 ML IV (10:44)
[2021-02-14] MEDS: ketorolac 30 mg/mL INJ 15 MG IVP (10:44)
[2021-02-14 10:53] VITALS: BP 138/72; PULSE 78; RESP 18; O2SAT 97
[2021-02-14 10:58] LABS: Alanine Aminotransferase 24 U/L (0-33); Alkaline Phosphatase 77 IU/L (35-105); Blood Urea Nitrogen 15 mg/dL (8-23); C Reactive Protein 125.2 mg/L (0.0-4.9); Calcium 8.3 mg/dL (8.5-10.5); Carbon Dioxide 20 mmol/L (22-29); Chloride 103 mmol/L (98-107); Globulin 2.8 g/dL (1.3-4.6); Glucose 106 mg/dL (65-115); Osmolality Calculated 283 mOsm/kg (285-295); Sodium 136 mmol/L (136-145); Total Bilirubin 0.5 mg/dL (0.15-1.2); Total Protein 6.8 g/dL (6.6-8.7)
[2021-02-14 11:03] LABS: Anion Gap 17.6 (5-19); Aspartate Amino Transferase 23 U/L (0-32); Potassium 4.6 mmol/L (3.5-5.1)
[2021-02-14 12:34] VITALS: BP 106/44; PULSE 87; RESP 18; TEMP 37.1; O2SAT 96
[2021-02-14] MEDS: cephALEXin 500 mg Capsule PO (12:38)
[2021-02-14 12:44] VITALS: BP 106/44; PULSE 87; RESP 18; TEMP 37.1; O2SAT 87
== END 2021-02-14 12:45 | disposition home or self-care (01) ==
PROVIDERS: Emergency Provider Nurse Practitioner Family; PCP Family Medicine
DX: N39.0 Urinary tract infection, site not specified (principal); M25.59 Pain in other specified joint; Z87.891 Personal history of nicotine dependence; Z20.822 Contact with and (suspected) exposure to COVID-19
CPT/HCPCS: 36415; 80053; 81001; 85025; 86140; 87086; 87426; 87804; 96361; 96374; 96375; 99284; J1885; J2405; J7030

== ENCOUNTER 2021-03-03 11:11 | Outpatient (CLI) | payer MEDICARE, OTHER, SELFPAY ==
[2021-03-03 11:40] LABS: Basophils # 0.1 10^3/uL (0.0-0.1); Basophils % 0.8 %; Eosinophils # 0.2 10^3/uL (0.0-0.8); Eosinophils % 3.7 %; Hemoglobin 12.2 g/dL (11.5-15.3); Lymphocytes # 2.1 10^3/uL (0.8-4.8); Lymphocytes % 33.3 %; Mean Corpuscular HGB Conc 32.1 g/dL (30.0-36.0); Mean Corpuscular Hemoglobin 30.9 pg (28.0-34.0); Mean Corpuscular Volume 96.2 fl (81-99); Mean Platelet Volume 8.9 fL (7.4-10.4); Monocytes # 0.7 10^3/uL (0.2-0.9); Monocytes % 10.8 %; Neutrophils # 3.21 10^3/uL (1.8-7.7); Neutrophils % 50.9 %; Nucleated Red Blood Cells % 0 %; Platelet Count 260 10^3/cmm (130-400); Red Blood Count 3.95 10^6/uL (4.1-5.3); Red Cell Distribution Width 13.6 % (12.1-15.1); White Blood Count 6.3 10^3/uL (4.0-10.0)
[2021-03-03 12:02] LABS: Alanine Aminotransferase 15 U/L (0-33); Albumin Level 3.9 g/dL (3.5-5.2); Alkaline Phosphatase 82 IU/L (35-105); Anion Gap 16.3 (5-19); Aspartate Amino Transferase 16 U/L (0-32); Blood Urea Nitrogen 14 mg/dL (8-23); Calcium 8.2 mg/dL (8.5-10.5); Carbon Dioxide 20 mmol/L (22-29); Chloride 107 mmol/L (98-107); Globulin 2.5 g/dL (1.3-4.6); Glucose 87 mg/dL (65-115); Lactate Dehydrogenase 197 U/L (135-214); Osmolality Calculated 288 mOsm/kg (285-295); Potassium 4.3 mmol/L (3.5-5.1); Sodium 139 mmol/L (136-145); Total Bilirubin 0.2 mg/dL (0.15-1.2); Total Protein 6.4 g/dL (6.6-8.7)
--- NOTE | 2021-03-03 15:29 | ONC FU_ITS ---
Dr. Baugh follow up note Patient: Francie Levine Unit #: [id number]: 1945 Dicatated By: Marc Baugh M.D.Date of Visit:Mar 03, 2021 Onc Med Follow-up/Prog Note History of Present Illness: Mrs. Levine is a 75-year-old female with history of abdominal pain over the last 3 months. The initial impression was musculoskeletal in origin. She was treated with steroids without much relief. In February [address] scan of abdomen pelvis which showed extensive retroperitoneal lymphadenopathy and perinephric mass . On 03/02/[address]-guided biopsy of perinephric mass. 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 Immunohistochemistry positive for CD45, CD20 weakly, BCL-2, MUM-1, PAX-5, and Ki-67. And chest x-ray showed fullness in the mediastinum. Her family reported that Mrs Levine developed mental status changes/confusion and nausea vomiting and progressive abdominal pain. She was admitted to hospital this time and the time of admission her Total calcium was around 15. She was given dose of Zometa and also started on forced diuresis with normal saline and Lasix. She was also given dose of prednisone 100 mg daily. And bone marrow aspiration and biopsy Done on 03/17/2017 showed no evidence of lymphoma involvement. Mrs Levine began treatment with Rituxan-Cytoxan, Doxorubicin, Vincristine and Prednisone on 03/17/2017. x6 till 07/07/17 CT PET scan done on 04/22/2018 showed no evidence of recurrent adenopathy throughout the chest abdomen pelvis. There is some mild soft tissue thickening in the renal sinus fat and proximal ureters although marked improvement since prior exam done on 03/15/2017 may represent residual lymphomatous infiltration of kidney but no worsening of disease or obstruction .Follow-up CT scan of abdomen pelvis done on 07/22/2018 showed no hydronephrosis in either kidney, normal renal parenchymal enhancement No abdominal lymphadenopathy, small incidental fat-containing umbilical hernia Follow-up CT scan of chest abdomen pelvis done on 07/03/2019 showed no lymphadenopathy in the chest abdomen or pelvis No acute pulmonary infiltrates, mild diffuse fatty infiltration of the liver. Came for follow-up, denies any specific complaints, no fever chills, no nausea or vomiting, no diarrhea or constipation, no night sweats, no recurrent fever, no weight loss, no peripheral lymphadenopathy, no abdominal fullness, no confusion or mental status changes. Medications: Claritin 1 Capsule (of 10 mg) Oral daily PRN Allergies: Naproxen and OxyCODONE HCl. Review of Systems: Review of Systems is not available for this patient. Vital Signs: Performed on Mar 03, 2021 12:24 Height - 64.00 in Weight - 264.2 lbs (LOW) BSA - 2.20 sq.m BMI - 45.35 (HIGH) Temperature - 97.8 F (LOW) Pulse - 74 /min Respiration - 18 /min BP - 125/68 mm(hg) O2 Sat - 98 % Pain - 0 Fatigue - 5 Performance Status: 0 - Fully active, able to carry on all predisease activities without restrictions. (ECOG) Physical Examination: ENMT - No mouth sores, no thrush, no jaundice, Respiratory - Lungs are clear to auscultation, Cardiovascular - Regular rate and rhythm of heart , Abdomen - Soft, bowel sounds present, Extremities - No visible edema. Lab/Imaging: Most recent lab results are not available for this patient. Impression: diffuse large B-cell lymphoma non-germinal center type with a high proliferative rate, diagnosed on 03/02/2017 with perinephric mass biopsy. Clinically, stage III, with extensive central lymphadenopathy involving both sides of diaphragm No history of B symptoms Bone marrow done on 03/17/2017 showed no evidence of lymphoma involvement immunohistochemistry positive for CD45, CD20 BCL-2, MUM-1, PAX-5, Ki-67. Hypercalcemia probably due to lymphoma. Started on systemic chemotherapy [facility]OP on 03/17/2017 x 6 , Till 07/07/2017 CT PET scan done on 05/15/2017 showed interval resolution of abdominal lymphomatous adenopathy and no evidence of perinephric mass. Echo done on 05/29/2015 showed ejection fraction 65% no wall motion defectn. Follow-up CT of chest abdomen pelvis done on 04/22/2018 showed no evidence of recurrent adenopathy throughout the chest abdomen pelvis. There is some very mild soft tissue thickening in the renal sinus fat and proximal ureters. Although marked improvement since prior examination from 03/15/2017, this may represent disease dural lymphomatous infiltration of the kidneys. No worsening of disease or obstruction. CT scan of abdomen pelvis done on 07/22/2018 showed no abdominal lymphadenopathy, no hydronephrosis, normal renal parenchymal enhancement, small incidental fat-containing umbilical hernia, lumbar scoliosis with chronic compression of L1 vertebral body unchanged Stable grade 1 anterolisthesis L4 on L5 Plan: Discussed with patient regarding her labs white blood count 6.3 hemoglobin 12.2 hematocrit 38 platelets 260,000 CMP within normal limits Clinically, patient doing well with no new signs symptom suggestive of recurrence of disease, no peripheral lymphadenopathy or organomegaly, lab work-up is within normal range, will continue to monitor and she will return to clinic in 6 months with CBC CMP and LDH Signed By: Marc Baugh M.D. <<Signature on File>>
== END 2021-03-03 11:12 | disposition home or self-care (01) ==
PROVIDERS: PCP Family Medicine; Visit Provider Internal Medicine Hematology & Oncology
DX: Z09 Encounter for follow-up examination after completed treatment for conditions other than malignant neoplasm (principal); Z85.89 Personal history of malignant neoplasm of other organs and systems
CPT/HCPCS: 36415; 80053; 83615; 85025; 99214

== ENCOUNTER 2021-06-03 10:54 | Outpatient (CLI) | payer MEDICARE, OTHER, SELFPAY ==
--- NOTE | 2021-06-03 11:05 | US_ITS ---
WS: [id number] TRANSABDOMINAL PELVIC AND TRANSVAGINAL PELVIC ULTRASOUND HISTORY: N95.0 - Postmenopausal bleeding COMPARISON: CT 07/03/2019 Uterus: 6.0 cm x 4.3 cm x 3.8 cm. Uterus is anteverted and small size. The entire uterus is poorly vi sualized. There are numerous calcifications in the periphery of the uterus. Endometrium: 1.0 cm. Poorly visualized endometrium. This study is not adequate to evaluate the endome trium further. Right ovary: Not visualized. No adnexal mass. Left ovary: 5.4 cm x 4.8 cm x 5.4 cm. Markedly abnormal appearance of the LEFT adnexa. There is a fo reuben mural nodule surrounded by cystic and solid components and septations. The mural nodule is surrou nded by complex fluid. The mural nodule size centrally is 1.8 x 1.4 cm. There is vascularity within s ome of the septations. No free fluid. US/US pelvic with transvaginal IMPRESSION: 1. Complex cystic mass with septations and mural nodule in the LEFT adnexa. Fa vor this is probably a LEFT ovarian neoplasm until proven otherwise. Recommend surgical evaluation. 2. Poorly visualized endometrium. Cannot exclude endometrial abnormality.
== END 2021-06-03 10:55 | disposition home or self-care (01) ==
PROVIDERS: PCP Family Medicine; Visit Provider Obstetrics & Gynecology
DX: N95.0 Postmenopausal bleeding (principal)
CPT/HCPCS: 76830; 76856

== ENCOUNTER → 2021-06-04 09:16 | Outpatient (BNVA) | payer MEDICARE, OTHER, SELFPAY | PROVIDERS: PCP Family Medicine; Visit Provider Obstetrics & Gynecology | DX: N95.0 Postmenopausal bleeding (principal); N83.8 Other noninflammatory disorders of ovary, fallopian tube and broad ligament | CPT/HCPCS: 85027 ==

== ENCOUNTER 2021-06-09 15:35 | Inpatient (IN) | payer MEDICARE, OTHER, SELFPAY ==
[2021-06-09] VITALS (7 sets, daily range): BP systolic 157–172; BP diastolic 80–105; PULSE 74–88; RESP 15–18; TEMP 36.5–36.8; O2SAT 95–99; BMI 44.9
--- NOTE | 2021-06-09 16:26 | USR_ITS ---
NOTE: Report was unsigned for reason: Order was edited. Original Signature date and time was: 06/09/2021 1716 PROCEDURE INFORMATION: Exam: US Retroperitoneal; Complete; Kidneys and Bladder Exam date and time: 06/09/2021 4:37 PM Age: 76 years old Clinical indication: Other: Roberto TECHNIQUE: Imaging protocol: Real-time ultrasound of the retroperitoneum with image documentation. Complete exam focused on the kidneys and bladder. COMPARISON: CT chest abd pel w con* 07/03/2019 1:29 PM FINDINGS: Gallbladder: Gallbladder is absent. Right kidney: Moderate to severe bilateral hydronephrosis and hydroureter without obstructing lesion seen. Left kidney: Normal. No stones. No hydronephrosis. Urinary bladder: Unremarkable. [facility] US/US renal BI with PV bladder IMPRESSION: Moderate to severe bilateral hydronephrosis and hydroureter without obstructing lesion seen.
--- NOTE | 2021-06-09 16:28 | ED_ITS ---
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 She had been being followed for mental menorrhagia and had continued to have heavy bleeding. She become lightheaded dizzy at times recheck on blood work today shows acute kidney injury with hyperkalemia and 6 pretty significant anemia. 5 days ago hemoglobin is 7 7 in February she was 12 to, today she is 6 1.Her baseline creatinine is 0.7 2.9 today it is 4.8 she has noticed some swelling in her legs as well she is not on any prescription medications she has no history of diabetes or heart disease or any renal problems. MD complaint: abnormal lab Returns today for: called because of abnormal lab/test Symptoms since prior visit: worsening swelling Context: called for abnormal lab result Associated symptoms: chills and malaise Review of Systems Const: Denies: fever(s), chills, body aches, change in appetite, fatigue or malaise ENMT: Denies: throat pain, ear or mastoid pain, nasal discharge or nasal congestion Card: Denies: chest pain, edema, dyspnea on exertion or orthopnea Resp: Denies: dyspnea, productive cough or non-productive cough GI: Denies: abdominal pain, nausea, vomiting, hematemesis, coffee ground emesis, diarrhea, constipation, bloating, hematochezia or melena : Denies: flank pain, difficulty voiding, dysuria, urinary frequency or urinary urgency Musc: Reports: extremity swelling Skin/Breast: Denies: rash or pruritus PFSH ED PFSH: Medical History Port-A-Cath in place Surgical History History of left knee replacement Family History Mother Hypertension Father Colon cancer 72 Denies family history of Ovarian cancer Diabetes Clotting disorder Heart disease Hyperlipidemia Breast cancer Anesthesia complication Bleeding disorder Uterine cancer Thyroid condition Stroke Social History Smoking and tobacco status: former smoker Second hand smoke exposure: No Alcohol intake: never Adopted: No Caregiver/support person: Yes Lives independently: Yes Household members: significant other Housing: House Marital status: / service: No Current occupational status: retired Current occupational exposures/hazards: No Pets and animals: Yes History of recent travel: No Leisure activites: exercise Sexually active: No Current gender identity: Female Cheli/Sikhism: Baptist Physical Exam Const: COMMON NORMALS: no acute distress GENERAL APPEARANCE: cooperative and comfortable ORIENTATION/CONSCIOUSNESS: Yes awake, Yes oriented to person, Yes oriented to place and Yes oriented to time HENMT: COMMON NORMALS: normocephalic, atraumatic and hearing grossly normal bilaterally HEAD & SCALP: normocephalic and atraumatic Neck/C-Spine: COMMON NORMALS: no JVD Resp: COMMON NORMALS: normal respiratory effort, No retractions, No use of accessory muscles and clear to auscultation bilaterally AUSCULTATION: clear to auscultation bilaterally Cardio: COMMON NORMALS: no JVD, regular rate, regular rhythm and No murmurs present (Cardio) RATE: regular rate RHYTHM: regular rhythm GI: COMMON NORMALS: Soft to palpation and No hepatosplenomegaly present AUSCULTATION: Yes normoactive bowel sounds PALPATION: Yes Soft to palpation, No Tenderness to palpation present (GI), No Guarding due to palpation present (GI) and Yes No hepatosplenomegaly present Extremity: COMMON NORMALS: normal to inspection, capillary refill normal, no clubbing, cyanosis or edema, no calf tenderness and no pedal edema Neuro: SENSORIUM/ORIENTATION: Yes oriented to person, Yes oriented to place and Yes oriented to time Skin: COMMON NORMALS: no rashes or lesions noted GENERAL SKIN EXAM: no rashes or lesions noted Course Vital Signs: Vital signs: Vital Signs Temperature 98.3 F 06/09/21 15:49 Pulse Rate 88 06/09/21 15:49 Respiratory Rate 15 06/09/21 15:49 Blood Pressure 172/105 06/09/21 15:49 Pulse Oximetry 99 06/09/21 15:49 MDM - Recheck/Abnormal Lab/Rx Medical Decision Making Patient profoundly anemic just 4 days ago her hemoglobin is over 7 she will need to be admitted also need fluids and evaluation for her acute kidney injury suspect she may have some urinary retention will Place Stanley get ultrasound of kidney and bladder discussed with hospitalist orders written also discussed with Dr. Victoria he will consult Medical Records I reviewed the patient's medical records. Lab Data I reviewed the patient's lab results. : 06/09/21 17:09 06/09/21 17:09 Radiology Impressions Renal Ultrasound 06/09/21 16:26 IMPRESSION: Moderate to severe bilateral hydronephrosis and hydroureter without obstructing lesion seen. Laboratory Results WBC 6.6 10^3/uL (4.0-10.0) 06/09/21 17:09 RBC 1.89 10^6/uL (4.1-5.3) L 06/09/21 17:09 Hgb 5.7 g/dL (11.5-15.3) L* 06/09/21 17:09 Hct 19.3 % (37.0-47.0) L* 06/09/21 17:09 MCV 102.1 fl (81-99) H 06/09/21 17:09 MCH 30.2 pg (28.0-34.0) 06/09/21 17:09 MCHC 29.5 g/dL (30.0-36.0) L 06/09/21 17:09 RDW 14.6 % (12.1-15.1) 06/09/21 17:09 Plt Count 200 10^3/cmm (130-400) 06/09/21 17:09 MPV 9.1 fL (7.4-10.4) 06/09/21 17:09 Neut % (Auto) 55.7 % 06/09/21 17:09 Lymph % (Auto) 30.4 % 06/09/21 17:09 [place] % (Auto) 9.0 % 06/09/21 17:09 Eos % (Auto) 3.8 % 06/09/21 17:09 Baso % (Auto) 0.5 % 06/09/21 17:09 Neut # (Auto) 3.67 10^3/uL (1.8-7.7) 06/09/21 17:09 Lymph # (Auto) 2.0 10^3/uL (0.8-4.8) 06/09/21 17:09 [place] # (Auto) 0.6 10^3/uL (0.2-0.9) 06/09/21 17:09 Eos # (Auto) 0.3 10^3/uL (0.0-0.8) 06/09/21 17:09 Baso # (Auto) 0.0 10^3/uL (0.0-0.1) 06/09/21 17:09 Nucleated RBC % (auto) 0 % 06/09/21 17:09 Nucleated RBCs # 0.0 /100WBC 06/09/21 17:09 Discharge Plan Discharge Patient Disposition: Admitted As Inpatient Clinical Impression: ABLA (acute blood loss anemia), Abnormal uterine bleeding, Acute kidney injury, Acute hyperkalemia Condition: Stable Prescriptions: No Action acetaminophen [Tylenol Arthritis Pain] 650 mg tablet extended release 1,300 mg PO .daily 0RF Label Comments: 3 tablets in the morning loratadine [Claritin] 10 mg Tablet 10 mg PO DAILY PRN (Reason: Allergy Symptoms) 0RF Referrals: Nils Gambino DO [Primary Care Provider] - Coding Level of Care Code ED Pool Cleaner for Chg Fwd Exam Comprehensive
[2021-06-09] MEDS: sodium chloride 0.9% 1,000 ML 999 ML IV (17:15)
--- NOTE | 2021-06-09 17:29 | PC.NURSE ---
CATHETER PLACED BY MYSELF WITNESSED BY RIANA.
[2021-06-09 17:31] LABS: Basophils % 0.5 %; Eosinophils # 0.3 10^3/uL (0.0-0.8); Eosinophils % 3.8 %; Lymphocytes % 30.4 %; Mean Corpuscular HGB Conc 29.5 g/dL (30.0-36.0); Mean Corpuscular Hemoglobin 30.2 pg (28.0-34.0); Mean Corpuscular Volume 102.1 fl (81-99); Mean Platelet Volume 9.1 fL (7.4-10.4); Monocytes # 0.6 10^3/uL (0.2-0.9); Neutrophils # 3.67 10^3/uL (1.8-7.7); Neutrophils % 55.7 %; Nucleated Red Blood Cells % 0 %; Platelet Count 200 10^3/cmm (130-400); Red Blood Count 1.89 10^6/uL (4.1-5.3); Red Cell Distribution Width 14.6 % (12.1-15.1); White Blood Count 6.6 10^3/uL (4.0-10.0)
[2021-06-09] MEDS: sodium polystyrene sulfonate 15 gm/60 mL Btl PO (17:33)
[2021-06-09 17:41] LABS: Hematocrit 19.3 % (37.0-47.0); Hemoglobin 5.7 g/dL (11.5-15.3)
[2021-06-09 17:42] LABS: Charge for UA Resulting for Rev
[2021-06-09 18:00] LABS: Add Urine Microscopic? YES; Bilirubin Urine Neg (Negative); Blood Urine 3+ (Negative); Glucose Urine UA Norm (Normal); Ketones Urine Negative (Negative); Leukocyte Esterase Urine 2+ (Negative); Nitrate Urine Negative (Negative); Protein Urine Neg (Negative); Urine Appearance Cloudy (CLEAR); Urine Color Yellow (Yellow); Urobilinogen Urine Norm (Negative); pH Urine 6.5 (5-7)
--- NOTE | 2021-06-09 18:26 | P.HP_ITS ---
Providers/Chief Complaint Admitting Physician: Armando Slater MD Primary Care Provider: Nils Gambino DO Chief Complaint: abnormal lab, sob History of Present Illness Francie Levine is a 76 year old female Review of Systems Const: Denies: fever(s) or chills Eyes: Denies: change in vision or blurry vision ENMT: Denies: nasal congestion Card: Denies: chest pain or palpitations Resp: Denies: dyspnea, productive cough or non-productive cough GI: Denies: abdominal pain, nausea, vomiting, hematemesis, diarrhea or constipation : Denies: flank pain, dysuria or urinary frequency Musc: Denies: neck pain or back pain Skin/Breast: Denies: rash Neuro: Reports: dizziness; Denies: headache(s) Psych: Denies: anxiety or depression Endo: Denies: polyuria or polydipsia Medications/Allergies Home Medications Medication Instructions Recorded Confirmed Last Taken Type loratadine 10 mg tablet (Claritin) 10 mg PO DAILY PRN 02/14/21 06/09/21 Unknown History acetaminophen 650 mg 1,300 mg PO .daily tab 05/19/21 06/09/21 Unknown History tablet,extended release (Tylenol Arthritis Pain) Allergies Allergy/AdvReac Type Severity Reaction Status Date / Time No Known Allergies Allergy Verified 06/09/21 13:21 PFSH Acute PFSH: Medical History (Updated 06/09/21 @ 18:28 by Armando Slater MD) Diffuse large B cell lymphoma Port-A-Cath in place Status post insertion of nerve stimulator Surgical History (Updated 06/09/21 @ 18:28 by Armando Slater MD) H/O cataract extraction bilateral eyes H/O tubal ligation History of colon resection History of left knee replacement History of removal of Port-a-Cath History of total right knee replacement S/P cholecystectomy Family History Mother Hypertension Father Colon cancer 72 Denies family history of Ovarian cancer Diabetes Clotting disorder Heart disease Hyperlipidemia Breast cancer Anesthesia complication Bleeding disorder Uterine cancer Thyroid condition Stroke Social History Smoking and tobacco status: former smoker Second hand smoke exposure: No Alcohol intake: never Adopted: No Caregiver/support person: Yes Lives independently: Yes Household members: significant other Housing: House Marital status: / service: No Current occupational status: retired Current occupational exposures/hazards: No Pets and animals: Yes History of recent travel: No Leisure activites: exercise Sexually active: No Current gender identity: Female Cheli/Buddhism: Presybeterian Vitals/I&O/Wt Last Vital Signs Temp 98.3 F 06/09/21 15:49 Pulse 88 06/09/21 15:49 Resp 15 06/09/21 15:49 BP 172/105 06/09/21 15:49 Pulse Ox 99 06/09/21 15:49 Weight last 48 hrs Weight 118.841 kg Physical Exam Const: COMMON NORMALS: no acute distress and patient oriented x3 HENMT: COMMON NORMALS: normocephalic HEAD & SCALP: normocephalic Eye: COMMON NORMALS: Equal, round and reactive pupils present and EOMs intact bilaterally Neck/C-Spine: COMMON NORMALS: no JVD Lymph: LYMPHATIC: no lymphadenopathy noted Resp: COMMON NORMALS: normal respiratory effort, No retractions, No use of accessory muscles and clear to auscultation bilaterally AUSCULTATION: clear to auscultation bilaterally Cardio: COMMON NORMALS: no JVD, regular rate, regular rhythm, S1 normal heart sound present and S2 normal heart sound present RATE: regular rate RHYTHM: regular rhythm HEART SOUNDS: S1 normal heart sound present and S2 normal heart sound present GI: COMMON NORMALS: Normal to inspection, nondistended, normoactive bowel sounds present, Soft to palpation, non-tender, No hepatosplenomegaly present, no masses and no bruits PALPATION: Yes Soft to palpation and Yes No hepatosplenomegaly present Back/Pelvis: OTHER: 1+ pitting edema bilateral extremities Extremity: COMMON NORMALS: capillary refill normal and no calf tenderness Neuro: COMMON NORMALS: patient oriented x3, CN's II-XII intact bilaterally, moves all extremities and no focal motor deficits Psych: COMMON NORMALS: mental status grossly normal Urinary Catheter Management: Stanley: Cath Placed During This Visit: yes Urinary Catheter Date of Insertion: 06/09/21 Urinary Catheter Time of Insertion: 17:29 Data : 06/09/21 17:09 06/09/21 17:09 A&P Assessment and plan (1) Abnormal uterine bleeding: Status: Acute (2) ABLA (acute blood loss anemia): Status: Acute (3) Ovarian mass, left: Status: Acute (4) Acute hyperkalemia: Status: Acute (5) Acute kidney injury: Status: Acute Plan Acute blood loss anemia related to abnormal uterine bleeding -Transfuse 2 units PRBC -Monitor hemodynamics, monitor hemoglobin -Dr. Victoria advised that he will do a hysteroscopy once stable -We will do CT scan abdomen pelvis Left ovarian mass, complex mass, will do CT scan abdomen pelvis Acute renal failure, likely postobstructive, Stanley catheter placed, monitor urine output, monitor creatinine, renal ultrasound shows bilateral hydronephrosis -We will avoid IV fluids due to bilateral extremity edema Acute hyperkalemia, has received Kayexalate, monitor potassium DNR/DNI SCDs for DVT prophylaxis Attestations Medical Necessity Statement*: Patient requires hospitalization for acute anemia, menorrhagia, ovarian mass, acute renal failure, inpatient admission, greater than 2 midnights Coding Level of Care Code Acute Veterinary Bacteriologist for [facility] Fwd Diagnoses Abnormal uterine bleeding N93.9 ABLA (acute blood loss anemia) D62 Ovarian mass, left N83.8 Acute hyperkalemia E87.5 Acute kidney injury N17.9
[2021-06-09 18:27] LABS: Alanine Aminotransferase 10 U/L (0-33); Albumin Level 3.6 g/dL (3.5-5.2); Alkaline Phosphatase 69 IU/L (35-105); Anion Gap 19.2 (5-19); Aspartate Amino Transferase 16 U/L (0-32); Blood Urea Nitrogen 42 mg/dL (8-23); Carbon Dioxide 23 mmol/L (22-29); Chloride 105 mmol/L (98-107); Creatine Phosphokinase 78 U/L (26-192); Globulin 2.6 g/dL (1.3-4.6); Glucose 92 mg/dL (65-115); Osmolality Calculated 304 mOsm/kg (285-295); Potassium 5.2 mmol/L (3.5-5.1); Sodium 142 mmol/L (136-145); Total Bilirubin 0.2 mg/dL (0.15-1.2); Total Protein 6.2 g/dL (6.6-8.7)
--- NOTE | 2021-06-09 18:53 | PC.NURSE ---
ATTEMPTED REPORT NURSE UNAVAILABLE.
[2021-06-09 19:01] LABS: NT Pro B Type Natriuretic Pept 1734 pg/mL (0-450)
--- NOTE | 2021-06-09 19:15 | PC.NURSE ---
REPORT GIVEN TO GERMAINE MURILLO ASSUMED CARE.
--- NOTE | 2021-06-09 19:22 | PC.NURSE ---
Pt. report called at 1922 for room 254-2
--- NOTE | 2021-06-09 19:50 | CTR_ITS ---
PROCEDURE INFORMATION: Exam: CT Abdomen And Pelvis Without Contrast Exam date and time: 06/09/2021 9:07 PM Age: 76 years old Clinical indication: Other: Menomethorrhagia; Additional info: Menomethorrhagia, anemia TECHNIQUE: Imaging protocol: Computed tomography of the abdomen and pelvis without contrast. Radiation optimization: All CT scans at this facility use at least one of these dose optimization techniques: automated exposure control; mA and/or kV adjustment per patient size (includes targeted exams where dose is matched to clinical indication); or iterative reconstruction. COMPARISON: CT chest abd pel w con* 07/03/2019 1:29 PM RADIATION DOSE METRICS: Total DLP (mGy-cm): 1210.52 FINDINGS: Lungs: Infiltrate PROCEDURE INFORMATION:. Emphysematous changes. Liver: Normal. No mass. Gallbladder and bile ducts: Cholecystectomy. Pancreas: Normal. No ductal dilation. Spleen: Normal. No splenomegaly. Adrenal glands: Normal. No mass. Kidneys and ureters: Moderate bilateral hydronephrosis with suspected hydroureter without focal obstructing lesion. Stomach and bowel: Diverticulosis without diverticulitis. Appendix: No evidence of appendicitis. Intraperitoneal space: Unremarkable. No free air. No significant fluid collection. Vasculature: Unremarkable. No abdominal aortic aneurysm. Lymph nodes: Unremarkable. No enlarged lymph nodes. Urinary bladder: Stanley catheter in the urinary bladder. Reproductive: Right right adnexal 7 cm and left adnexal 5.2 cm solid-appearing mass lesions appear new compared to prior exam without surrounding inflammation, consider further evaluation with ultrasound and/or contrast infused CT. Bones/joints: L1 vertebral body chronic appearing compression fracture. Soft tissues: Supraumbilical ventral abdominal hernia containing omentum without bowel inflammation. CT/CT abdomen pelvis wo con [id number] IMPRESSION: 1. Negative for focal acute inflammatory process in the abdomen or pelvis. 2. Moderate bilateral hydronephrosis with suspected hydroureter without focal obstructing lesion. 3. Right right adnexal 7 cm and left adnexal 5.2 cm solid-appearing mass lesions appear new compared to prior exam without surrounding inflammation, consider further evaluation with ultrasound and/or contrast infused CT. 4. Diverticulosis without diverticulitis. 5. Supraumbilical ventral abdominal hernia containing omentum without bowel inflammation. 6. L1 vertebral body chronic appearing compression fracture. 7. Emphysematous changes. 8. Cholecystectomy. 9. Stanley catheter in the urinary bladder.
[2021-06-09] MEDS: pantoprazole 40 mg SDV IVP (20:30)
[2021-06-09] MEDS: sodium chloride 0.9% 1,000 ML 50 ML IV (20:31)
[2021-06-09 20:37] LABS: Thyroid Stimulating Hormone 2.71 uIU/mL (0.27-4.20)
[2021-06-09] MEDS: sodium chloride 0.9% (100 ml) 100 ML 20 ML (21:48)
[2021-06-10] VITALS (15 sets, daily range): BP systolic 152–184; BP diastolic 84–97; PULSE 67–92; RESP 17–20; TEMP 36.5–37.2; O2SAT 95–98
[2021-06-10 08:01] LABS: Basophils # 0.1 10^3/uL (0.0-0.1); Basophils % 0.8 %; Eosinophils # 0.3 10^3/uL (0.0-0.8); Eosinophils % 4.2 %; Lymphocytes # 1.5 10^3/uL (0.8-4.8); Lymphocytes % 18.8 %; Mean Corpuscular HGB Conc 29.8 g/dL (30.0-36.0); Mean Corpuscular Hemoglobin 29.8 pg (28.0-34.0); Monocytes # 0.6 10^3/uL (0.2-0.9); Monocytes % 7.8 %; Neutrophils # 5.24 10^3/uL (1.8-7.7); Nucleated Red Blood Cells % 0 %; Platelet Count 187 10^3/cmm (130-400); Red Blood Count 2.65 10^6/uL (4.1-5.3); Red Cell Distribution Width 15.4 % (12.1-15.1); White Blood Count 7.7 10^3/uL (4.0-10.0)
[2021-06-10 08:08] LABS: Hematocrit 26.5 % (37.0-47.0); Hemoglobin 7.9 g/dL (11.5-15.3)
[2021-06-10 08:18] LABS: Anion Gap 18.7 (5-19); Blood Urea Nitrogen 43 mg/dL (8-23); Calcium 8.3 mg/dL (8.5-10.5); Carbon Dioxide 21 mmol/L (22-29); Chloride 109 mmol/L (98-107); Glucose 95 mg/dL (65-115); Magnesium 2.1 mg/dL (1.7-2.3); Osmolality Calculated 309 mOsm/kg (285-295); Phosphorus 6.3 mg/dL (2.5-4.5); Potassium 4.7 mmol/L (3.5-5.1); Sodium 144 mmol/L (136-145)
--- NOTE | 2021-06-10 09:25 | PM.CONSULT ---
Providers/Reason For Consult Consulting Physician/Specialty*: fatmata carreon md / telenephrology Reason for Consult*: KAT Requesting Physician: Dr Chanel Slater Attending Physician: Armando Slater MD Primary Care Provider: Nils Gambino DO History of Present Illness History of Present Illness Francie Levine is a 76 year old female h/o b cell lymphoma 5 years ago. s/p chemo. Pt w/ known uterine polyps and an ovarian mass. Pt was admitted yesterday w/ 3 weeks of heavy vaginal bleeding and weakness. Pt was found to be anemic and in KAT. pt states that she feels better after prbc tx and wants to go home. she is urinating well and eating and drinking. she denies NSAID use. c/o leg edema. Review of Systems Narrative: negative except as above. + back pain Medications/Allergies Home Medications Medication Instructions Recorded Confirmed Last Taken Type loratadine 10 mg tablet (Claritin) 10 mg PO DAILY PRN 02/14/21 06/09/21 Unknown History acetaminophen 650 mg 1,300 mg PO .daily tab 05/19/21 06/09/21 06/09/21 History tablet,extended release (Tylenol Arthritis Pain) Allergies Allergy/AdvReac Type Severity Reaction Status Date / Time No Known Allergies Allergy Verified 06/09/21 19:26 Current Medications Generic Name Dose Route Start Last Admin Trade Name Freq PRN Reason Stop Dose Admin Sodium Chloride 1,000 mls @ 50 mls/hr 06/09/21 19:50 06/09/21 20:31 Sodium Chloride 0.9% IV 50 mls/hr .Q20H ANGIE Administration Pantoprazole Sodium 40 mg 06/09/21 19:50 06/09/21 20:30 Pantoprazole 40 Mg Sdv IVP 40 mg Q24H ANGIE Administration PFSH Acute PFSH: Medical History (Updated 06/09/21 @ 18:28 by Armando Slater MD) Diffuse large B cell lymphoma Port-A-Cath in place Status post insertion of nerve stimulator Surgical History (Updated 06/09/21 @ 18:28 by Armando Slater MD) H/O cataract extraction bilateral eyes H/O tubal ligation History of colon resection History of left knee replacement History of removal of Port-a-Cath History of total right knee replacement S/P cholecystectomy Family History Mother Hypertension Father Colon cancer 72 Denies family history of Ovarian cancer Diabetes Clotting disorder Heart disease Hyperlipidemia Breast cancer Anesthesia complication Bleeding disorder Uterine cancer Thyroid condition Stroke Social History Smoking and tobacco status: former smoker Second hand smoke exposure: No Alcohol intake: never Adopted: No Caregiver/support person: Yes Lives independently: Yes Household members: significant other Housing: House Marital status: / service: No Current occupational status: retired Current occupational exposures/hazards: No Pets and animals: Yes History of recent travel: No Leisure activites: exercise Sexually active: No Current gender identity: Female Cheli/Muslim: Jehovah'S Witness Vitals/I&O/Wt Last Vital Signs Temp 97.7 F 06/10/21 07:16 Pulse 78 06/10/21 07:16 Resp 18 06/10/21 07:16 BP 162/96 06/10/21 07:16 Pulse Ox 96 06/10/21 07:16 06/09/21 06/10/21 06/10/21 22:59 06:59 14:59 Intake Total 0 / 0 1450 / 1450 240 / 240 Output Total 600 / 600 Balance 0 / 0 850 / 850 240 / 240 Weight last 48 hrs Weight 129.818 kg Weight 118.841 kg Physical Exam Narrative: obese, NARD heent- nc/at, eomi, anicteric neck supple, raman jvp lungs clear b/l heart reg, + s1, s2 abd soft, nt, nd, + bs ext 1+ b/l edema neuro- a,a, o x 3 Urinary Catheter Management: Almodovar: Cath Placed During This Visit: yes, but has since been removed by the nurse Reason for Continuing Indwelling Catheter: Other Urinary Catheter Date of Insertion: 06/09/21 Urinary Catheter Time of Insertion: 17:29 Date Urinary Catheter Removed: 06/10/21 Time Urinary Catheter Discontinued: 02:00 Data : 06/10/21 07:47 06/10/21 07:47 A&P Assessment and plan (1) Acute kidney injury: 76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 Negative for focal acute inflammatory process in the abdomen or pelvis. 2. Moderate bilateral hydronephrosis with suspected hydroureter without focal obstructing lesion. 3. Right right adnexal 7 cm and left adnexal 5.2 cm solid-appearing mass lesions appear new compared to prior exam without surrounding inflammation, consider further evaluation with ultrasound and/or contrast infused CT. 4. Diverticulosis without diverticulitis. 5. Supraumbilical ventral abdominal hernia containing omentum without bowel inflammation. 6. L1 vertebral body chronic appearing compression fracture. 7. Emphysematous changes. 8. Cholecystectomy. 9. Almodovar catheter in the urinary bladder. B. KAT- likely from hypotension and anemia -CT scan w/ b/l hydronephrosis- needs almodovar and urology -renal us- Moderate to severe bilateral hydronephrosis and hydroureter without obstructing lesion seen. -likely from pelvic mass. -may need stents or PCN -monitor chemistries and uop ua 3+ blood -ivf and check cxr C. 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 Hyperkalemia -improved s/p kayexalate E. 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 Coding Level of Care Code Acute Vessel Scrapper for Tono Mejia Diagnoses Acute kidney injury N17.9
--- NOTE | 2021-06-10 09:36 | XR_ITS ---
WS: [id number] PROCEDURE: XR chest 2V* [id number] CLINICAL INFORMATION: anemia, sob COMPARISON: [address] July 03, 2019 FINDINGS: Heart: Cardiomegaly. Lungs: Bilateral perihilar interstitial thickening/infiltrates more prominent RIGHT lower lobe. This is similar to 2018. No focal consolidation. Bones: Dorsal spinal stimulator. Osteopenia. Cholecystectomy clips. Aortic calcification. Chronic com pression fractures at the thoracolumbar junction unchanged since the prior CT July 03, 2019. XR/XR chest 2V* [id number] IMPRESSION: 1. Stable cardiomegaly. 2. Bilateral perihilar and RIGHT lower lobe interstitial infiltrates similar t o 2018 can be seen with mild interstitial pneumonia or interstitial edema. 3. No focal consolidation or pleural fluid. 4. Chronic compression fractures thoracolumbar junction unchanged the prior CT July 03, 2019
--- NOTE | 2021-06-10 09:38 | USCV_ITS ---
Francie Levine Age: 76 Gender: F : 1945 Exam Date: 06/10/2021 10:36 Ordering Phys: Teto Anna MD Technologist: Octavia Oswald Exam Location: [facility] [place] Indication: Edema HISTORY: Lower extremity edema. PROCEDURES: Venous duplex imaging was performed in bilateral lower extremities. The following venous structures were evaluated: common femoral vein, profunda vein, proximal portion of the greater saphenous vein, superficial femoral vein, and the popliteal vein. In addition, the posterior tibial and peroneal trunk were evaluated. FINDINGS: Thrombus visualized in the proximal right GSV as it joins the CFV and extends through to right GSV below knee. A large lymph node is visualized in the left groin and a bakers cyst present in left medial knee. All other veins imaged appear free if thrombus at this time. CONCLUSIONS Thrombus Proximal Right GSV extends to the confluence of common femoral vein. Thrombus extends in the GSV below the knee. Enlarged lymph node left groin 2.0cm Popliteal cyst left knee 4.8 x 2.3cm Remainder of Bilateral LE veins are patent. Prelim to Dr. Ang at time of exam by author agent Alec Taylor MD (Electronically Signed) Final Date: 10 June 2021 11:25 S
[2021-06-10] MEDS: sodium chloride 0.45% 1,000 ML 75 ML IV (10:03)
[2021-06-10 11:05] LABS: Uric Acid 9.9 mg/dL (2.4-5.7)
--- NOTE | 2021-06-10 12:31 | P.PN_ITS ---
Subjective Subjective: ShePatient was seen this morning, her that she did get sleep overnight, no lightheadedness, dizziness,, no vaginal bleeding I discussed her CT scan findings, she has findings of bilateral adnexal masses, highly suspicious for ovarian malignancy I advised her that she also has bilateral hydronephrosis, hydroureter, without focal obstructing lesion, however given the enlarged adnexal masses, and that her creatinine has responded to the Stanley catheter, or for IV fluids, creatinine up to 5.0, concerning for obstruction from these adnexal masses on the ureter resulting in hydronephrosis and detrimenting her kidney function. Discussed consultation with Dr. Gudino, Dr. Gudino will likely do come by and see her later on in the afternoon, and likely will require bilateral stent placement. In addition have consulted nephrology service. Patient also was found to have a right lower extremity proximal blood clot extending below the knee, thus he will be treated like a deep vein thrombosis, as she cannot tolerate anticoagulation due to anemia, will discuss with Dr. Carrasco about IVC filter placement, hopefully can be placed at the same time her ureteral stents can be placed, I have called out to Dr. Carrasco, waiting for callback Vitals/I&O/Wt Last Vital Signs Temp 98.0 F 06/10/21 11:46 Pulse 71 06/10/21 11:46 Resp 18 06/10/21 11:46 BP 165/88 06/10/21 11:46 Pulse Ox 98 06/10/21 11:46 06/09/21 06/10/21 06/10/21 22:59 06:59 14:59 Intake Total 0 / 0 1450 / 1450 440 / 440 Output Total 600 / 600 Balance 0 / 0 850 / 850 440 / 440 Weight last 48 hrs Weight 129.818 kg Weight 118.841 kg Physical Exam Const: COMMON NORMALS: no acute distress and patient oriented x3 Resp: COMMON NORMALS: normal respiratory effort, No retractions, No use of accessory muscles and clear to auscultation bilaterally AUSCULTATION: clear to auscultation bilaterally Cardio: COMMON NORMALS: regular rate, regular rhythm, S1 normal heart sound present and S2 normal heart sound present RATE: regular rate RHYTHM: regular rhythm HEART SOUNDS: S1 normal heart sound present and S2 normal heart sound present GI: COMMON NORMALS: Normal to inspection, nondistended, normoactive bowel sounds present, Soft to palpation, non-tender and No hepatosplenomegaly present PALPATION: Yes Soft to palpation and Yes No hepatosplenomegaly present Extremity: NARRATIVE EXTREMITY EXAM: 1+ pitting edema Neuro: COMMON NORMALS: patient oriented x3 Psych: COMMON NORMALS: mental status grossly normal Urinary Catheter Management: Stanley: Cath Placed During This Visit: yes, but has since been removed by the nurse Reason for Continuing Indwelling Catheter: Other Urinary Catheter Date of Insertion: 06/09/21 Urinary Catheter Time of Insertion: 17:29 Date Urinary Catheter Removed: 06/10/21 Time Urinary Catheter Discontinued: 02:00 Data : 06/10/21 07:47 06/10/21 07:47 A&P Assessment and plan (1) Bilateral hydronephrosis: Status: Acute (2) Hydroureteronephrosis: Status: Acute (3) Right leg DVT: Status: Acute (4) Bilateral tubo-ovarian mass: Status: Acute (5) Acute kidney injury: Status: Acute Plan Acute blood loss anemia related to abnormal uterine bleeding -Transfuse 2 units PRBC, posttransfusion H&H 7.9 -Currently hemodynamically stable, recheck hemoglobin 6 PM -Monitor hemodynamics, monitor hemoglobin -Plans on hysteroscopy tomorrow morning Bilateral ovarian mass -Right right adnexal 7 cm and left adnexal 5.2 cm solid-appearing mass lesions appear new compared to prior exam without surrounding inflammation, consider further evaluation with ultrasound and/or contrast infused CT. Bilateral hydronephrosis, hydroureter, creatinine did not improve with Stanley catheter placement or IV fluids, creatinine up to 5.0, concerning for obstruction related to bilateral ovarian masses -Discussed with Dr. Jean, plans on a bilateral stent placement tomorrow morning Acute renal failure, creatinine 5.0, Stanley catheter placed, monitor urine output, monitor creatinine, renal ultrasound shows bilateral hydronephrosis, bilateral hydroureter -Continue IV fluids Right lower extremity DVT Thrombus Proximal Right? GSV extends to the confluence of common ?femoral vein. Thrombus extends in the GSV below the knee. Due to anemia cannot tolerate anticoagulation, will discuss with Dr. 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
--- NOTE | 2021-06-10 12:45 | P.CONIM_ITS ---
Providers/Reason For Consult Consulting Physician/Specialty*: Urology/Gudino Reason for Consult*: Bilateral ureteral obstruction, likely DEPUTY COMMISSIONER source Requesting Physician: Dr. Slater Attending Physician: Armando Slater MD Primary Care Provider: Nils Gambino DO History of Present Illness History of Present Illness Francie Levine is a 76 year old female who I evaluated for the first time today at the request of Dr. Slater for bilateral ureteral obstruction with renal failure. She was evaluated for dysfunctional uterine bleeding and found to be severely anemic and was admitted for that reason but the same time was found to be in renal failure with a creatinine of 4.6. Catheter was placed. There was no substantial change in her creatinine today was 5.0. Potassium is acceptable at 4.7. She also has known to have a lower extremity on the right blood clot and there apparently are plans being made for vena cava filter placement. Dr. Victoria has been following the patient and is planning for hysteroscopy and biopsy tomorrow. I will check with Dr. Victoria as well as Dr. Carrasco to see if we can coordinate these underwent anesthesia. Had originally planned on doing bilateral ureteral stents this afternoon but given already scheduled anesthesia tomorrow it would make make sense given her reasonable stability metabolically to proceed with that tomorrow as scheduled. I reviewed all this in detail with the patient. Discussed the likely cause of the bilateral ureteral obstruction to be a DEPUTY COMMISSIONER condition and could not rule out a malignant process there. She denies any significant urinary complaints. No full-blown renal colicky symptoms. Once the coordination has been successful we will settle a time in the operating room. After consultation it was decided to forego the vena caval filter until her kidney function has improved somewhat. Tomorrow will perform a cystoscopy retrograde bilateral ureteral stents in conjunction with Dr. Victoria's procedure. I explained the procedure in detail to the patient. She was comfortable with proceeding as outlined. Informed consent was obtained Review of Systems Const: Denies: fever(s) or chills Eyes: Denies: change in vision or eye discharge ENMT: Denies: hoarseness Card: Denies: chest pain Resp: Denies: productive cough or wheezing GI: Denies: nausea or vomiting : Reports: vaginal bleeding; Denies: flank pain or hematuria Musc: Reports: joint pain Neuro: Denies: confusion, difficulty communicating thoughts or seizure-like activity Psych: Denies: hopelessness or memory loss Endo: Denies: flushing Wally/Lymph: Reports: easy bleeding All/Imm: Denies: acute wheezing Medications/Allergies Home Medications Medication Instructions Recorded Confirmed Last Taken Type loratadine 10 mg tablet (Claritin) 10 mg PO DAILY PRN 02/14/21 06/09/21 Unknown History acetaminophen 650 mg 1,300 mg PO .daily tab 05/19/21 06/09/21 06/09/21 History tablet,extended release (Tylenol Arthritis Pain) Allergies Allergy/AdvReac Type Severity Reaction Status Date / Time No Known Allergies Allergy Verified 06/09/21 19:26 Current Medications Generic Name Dose Route Start Last Admin Trade Name Freq PRN Reason Stop Dose Admin Sodium Chloride 1,000 mls @ 75 mls/hr 06/10/21 09:45 06/10/21 10:03 Sodium Chloride 0.45% IV 75 mls/hr .[id number] ANGIE Administration Pantoprazole Sodium 40 mg 06/09/21 19:50 06/09/21 20:30 Pantoprazole 40 Mg Sdv IVP 40 mg Q24H ANGIE Administration PFSH Acute PFSH: Medical History Diffuse large B cell lymphoma Port-A-Cath in place Status post insertion of nerve stimulator Surgical History H/O cataract extraction bilateral eyes H/O tubal ligation History of colon resection History of left knee replacement History of removal of Port-a-Cath History of total right knee replacement S/P cholecystectomy Family History Mother Hypertension Father Colon cancer 72 Denies family history of Ovarian cancer Diabetes Clotting disorder Heart disease Hyperlipidemia Breast cancer Anesthesia complication Bleeding disorder Uterine cancer Thyroid condition Stroke Social History Smoking and tobacco status: former smoker Second hand smoke exposure: No Alcohol intake: never Adopted: No Caregiver/support person: Yes Lives independently: Yes Household members: significant other Housing: House Marital status: / service: No Current occupational status: retired Current occupational exposures/hazards: No Pets and animals: Yes History of recent travel: No Leisure activites: exercise Sexually active: No Current gender identity: Female Cheli/Moravian: Gnosticism Vitals/I&O/Wt Last Vital Signs Temp 98.0 F 06/10/21 11:46 Pulse 71 06/10/21 11:46 Resp 18 06/10/21 11:46 BP 165/88 06/10/21 11:46 Pulse Ox 98 06/10/21 11:46 06/09/21 06/10/21 06/10/21 22:59 06:59 14:59 Intake Total 0 / 0 1450 / 1450 440 / 440 Output Total 600 / 600 Balance 0 / 0 850 / 850 440 / 440 Weight last 48 hrs Weight 286 lb 3.2 oz Weight 262 lb Physical Exam Narrative: Alert and oriented no acute distress HEENT atraumatic normocephalic Neck good range of motion no masses Respiratory: No audible wheezing. Good air movement clear to auscultation bilaterally. Normal chest movements. Cardiovascular: Regular rate and rhythm Abdomen soft nontender. No palpable masses. Normoactive bowel sounds. Bilateral lower extremity edema. No active external bleeding. No palpable lymphadenopathy Normal external female genitalia with typical age-related urogenital atrophy. Normal urethral meatus. No obvious vaginal bleeding currently. Palpably normal urethra. Urinary Catheter Management: Stanley: Cath Placed During This Visit: yes, but has since been removed by the nurse Reason for Continuing Indwelling Catheter: Other Urinary Catheter Date of Insertion: 06/09/21 Urinary Catheter Time of Insertion: 17:29 Date Urinary Catheter Removed: 06/10/21 Time Urinary Catheter Discontinued: 02:00 Data : 06/11/21 06:02 06/11/21 03:31 A&P Assessment and plan (1) Bilateral hydronephrosis: Bilateral ureteral obstruction leading to hydronephrosis. Appears to be secondary to pelvic mass DEPUTY COMMISSIONER origin. Status: Acute (2) Bilateral ureteral obstruction: Status: Acute (3) Bilateral tubo-ovarian mass: Status: Acute (4) Acute kidney injury: Creatinine about 5. Likely combination but certainly contributed to by bilateral ureteral obstruction. Plan for stents Status: Acute (5) Acute hyperkalemia: Status: Acute (6) ABLA (acute blood loss anemia): Status: Acute (7) Right leg DVT: Tentative plans soon for vena cava filter. Status: Acute Consult Attestations Medical Necessity Statement: See attending Coding Level of Care Code Acute Database Reporting Consultant for Chg Fwd Diagnoses Bilateral ureteral obstruction N13.5 Bilateral tubo-ovarian mass N83.8 Acute kidney injury N17.9 Acute hyperkalemia E87.5 ABLA (acute blood loss anemia) D62 Bilateral hydronephrosis N13.30 Right leg DVT I82.401
--- NOTE | 2021-06-10 12:57 | ANES.PREANE2 ---
Pre-Anesthetic Assessment Height/Weight: Height 1.63 m Weight 129.818 kg Temp Pulse Resp BP Pulse Ox 98.0 F 71 18 165/88 98 06/10/21 11:46 06/10/21 11:46 06/10/21 11:46 06/10/21 11:46 06/10/21 11:46 Preop Diagnosis: Port-A-Cath in place Operation Date: 06/11/21 13:55 Proposed Procedures p Hysteroscopy w/ Myosure 77583/n95.0/n84.1(Not Applicable) - Matt Victoria MD s Dilation And Curettage (D&C)(Not Applicable) - Matt Victoria MD Familial anesthetic complications: None Was Beta Carlotta taken within 24 hours: N/A Was Clonidine taken within 24 hours: N/A Social No alcohol and No tobacco Exam alert, oriented x 3, clear to auscultation bilaterally and regular rate & rhythm Airway Submandibular: within normal limits Cervical ROM: within normal limits Mallampati: Class II Comments: Comments: Missing most teeth Pulmonary Chronic Obstructive Pulmonary Disease (Emphysema noted on CT) and Sleep Apnea (Does not use CPAP) CXR 06/10/21 XR/XR chest 2V* [id number] IMPRESSION: ? 1.? Stable cardiomegaly. 2.? Bilateral perihilar and RIGHT lower lobe interstitial infiltrates similar to 2018 can be seen with mild interstitial pneumonia or interstitial edema. 3.? No focal consolidation or pleural fluid. 4.? Chronic compression fractures thoracolumbar junction unchanged the prior CT July 03, 2019 ? CV/HEM Anemia and Deep Vein Thrombosis Elevated BNP Acute anemia found during pre op appointment for labs. Hypocalcemia Prior to recent decline as recent as early March patient could ascend flight of stairs w/o CP or significant SOB Venous Duplex 06/10/21 ?CONCLUSIONS ?Thrombus Proximal Right? GSV extends to the confluence of common ?femoral vein. Thrombus extends in the GSV below the knee. ?Enlarged lymph node left groin 2.0cm ?Popliteal cyst left knee 4.8 x 2.3cm ?Remainder of Bilateral LE veins are patent. ?Prelim to Dr. Ang at time of exam by security guard EKG Sinus rhythm LOW QRS VOLTAGE IN PRECORDIAL LEADS? [QRS DEFLECTION < 1.0 mV IN CHEST LEADS] POSSIBLE ANTERIOR MYOCARDIAL INFARCTION , PROBABLY OLD [30 ms Q WAVE IN V3/V4, OR R < 0.2 mV IN V4] ABNORMAL RHYTHM ECG Compared to ECG 03/15/2017 16:12:21 Low QRS voltage now present Sinus tachycardia no longer present Left-axis deviation no longer present Myocardial infarct finding still present Electronically Signed On 06-10-2021 9:25:10 CDT by Mickey Fabian M.D. [email or web address] Acute renal failure d/t urinary obstruction Mass right pelvis CT 06/09/21 CT/CT abdomen pelvis wo con [id number] IMPRESSION: 1. Negative for focal acute inflammatory process in the abdomen or pelvis. 2. Moderate bilateral hydronephrosis with suspected hydroureter without focal obstructing lesion. 3. Right right adnexal 7 cm and left adnexal 5.2 cm solid-appearing mass lesions appear new compared to prior exam without surrounding inflammation, consider further evaluation with ultrasound and/or contrast infused CT. 4. Diverticulosis without diverticulitis. 5. Supraumbilical ventral abdominal hernia containing omentum without bowel inflammation. 6. L1 vertebral body chronic appearing compression fracture. 7. Emphysematous changes. 8. Cholecystectomy. 9. Stanley catheter in the urinary bladder. Renal US 06/09/21 US/US renal BI with PV bladder IMPRESSION: Moderate to severe bilateral hydronephrosis and hydroureter without obstructing lesion seen. ? Hepatic None reported GI Diverticulosis Ventral hernia S/p cholecystectomy Denies GERD Metabolic Morbid Obesity Denies DM Neuropsych Compression fx on CT Anesthetic Plan ASA status: 4 (76 year old female with morbidy obesity, LOI, acute anemia, and obstructive KAT. ) Anesthesia: Anesthesia Evaluation Other: We discussed risk and benefits of general anesthesia including PONV, sore throat (sometimes severe), corneal abrasion, positioning and peripheral nerve injuries, life threatening allergic reaction, post operative ICU admission requiring prolonged intubation, stroke, heart attack, , and rare incidences of recall. Patient consents to proceed with general anesthesia. Risk of > 500 ml blood loss (7ml/kg in children): No Other Pertinent Information Discussed code status with patient. Patient would like CPR in event of emergency including life saving chest compressions, airway mgmt, and cardiovascular medications. Patient does not want ad terminal makeup operator care in the case of irreversible disease requiring mechanical life support/feeding. Medications/Allergies Home Medications Medication Instructions Recorded Confirmed Last Taken Type loratadine 10 mg tablet (Claritin) 10 mg PO DAILY PRN 02/14/21 06/09/21 Unknown History acetaminophen 650 mg 1,300 mg PO .daily tab 05/19/21 06/09/21 06/09/21 History tablet,extended release (Tylenol Arthritis Pain) Allergies Allergy/AdvReac Type Severity Reaction Status Date / Time No Known Allergies Allergy Verified 06/09/21 19:26 Current Medications Generic Name Dose Route Start Last Admin Trade Name Freq PRN Reason Stop Dose Admin Sodium Chloride 1,000 mls @ 75 mls/hr 06/10/21 09:45 06/10/21 10:03 Sodium Chloride 0.45% IV 75 mls/hr .[id number] ANGIE Administration Pantoprazole Sodium 40 mg 06/09/21 19:50 06/09/21 20:30 Pantoprazole 40 Mg Sdv IVP 40 mg Q24H ANGIE Administration PFSH Anesthesia Medical History Diffuse large B cell lymphoma Port-A-Cath in place Status post insertion of nerve stimulator Surgical History H/O cataract extraction bilateral eyes H/O tubal ligation History of colon resection History of left knee replacement History of removal of Port-a-Cath History of total right knee replacement S/P cholecystectomy Family History Mother Hypertension Father Colon cancer 72 Denies family history of Ovarian cancer Diabetes Clotting disorder Heart disease Hyperlipidemia Breast cancer Anesthesia complication Bleeding disorder Uterine cancer Thyroid condition Stroke Social History Smoking and tobacco status: former smoker Second hand smoke exposure: No Alcohol intake: never Adopted: No Caregiver/support person: Yes Lives independently: Yes Household members: significant other Housing: House Marital status: / service: No Current occupational status: retired Current occupational exposures/hazards: No Pets and animals: Yes History of recent travel: No Leisure activites: exercise Sexually active: No Current gender identity: Female Cheli/Denominational: Faith Data Anesthesia : 06/10/21 07:47 06/10/21 07:47 Short CBC 06/09/21 06/10/21 Range/Units 17:09 07:47 WBC 6.6 7.7 (4.0-10.0) 10^3/uL Hgb 5.7 L* 7.9 L D (11.5-15.3) g/dL Hct 19.3 L* 26.5 L D (37.0-47.0) % MCV 102.1 H 100.0 H (81-99) fl Plt Count 200 187 (130-400) 10^3/cmm Neut % (Auto) 55.7 68.0 % Neut # (Auto) 3.67 5.24 (1.8-7.7) 10^3/uL BMP 06/09/21 06/10/21 17:09 07:47 Sodium 142 144 Potassium 5.2 H 4.7 Chloride 105 109 H Carbon Dioxide 23 21 L BUN 42 H 43 H Creatinine 4.6 H 5.0 H Glucose 92 95 Calcium 8.0 L 8.3 L Cardiac Enzymes 06/09/21 06/09/21 Range/Units 17:09 17:09 Creatine Kinase 78 (26-192) U/L NT-Pro-B Natriuret Pep 1734 H (0-450) pg/mL Liver Function 06/09/21 Range/Units 17:09 Total Bilirubin 0.2 (0.15-1.2) mg/dL AST 16 (0-32) U/L ALT 10 (0-33) U/L Alkaline Phosphatase 69 (35-105) IU/L Albumin 3.6 (3.5-5.2) g/dL Urine 06/09/21 Range/Units 17:32 Urine Color Yellow (Yellow) Urine Appearance Cloudy (CLEAR) Urine pH 6.5 (5-7) Ur Specific [place] 1.010 (1.005-1.030) Urine Protein Neg (Negative) Urine Glucose (UA) Norm (Normal) Urine Ketones Negative (Negative) Urine Nitrate Negative (Negative) Urine Bilirubin Neg (Negative) Ur Leukocyte Esterase 2+ H (Negative) Blood Bank 06/09/21 17:09 Blood Type O Negative Rho(D) Type Negative Antibody Screen Negative Cardiac Studies: No Data to Display
[2021-06-10 13:46] LABS: Hepatitis C Virus Antibody Non-Reactive (Nonreactive)
[2021-06-10 16:34] LABS: Anion Gap 22.3 (5-19); Blood Urea Nitrogen 41 mg/dL (8-23); Calcium 8.4 mg/dL (8.5-10.5); Carbon Dioxide 21 mmol/L (22-29); Chloride 108 mmol/L (98-107); Glucose 83 mg/dL (65-115); Osmolality Calculated 311 mOsm/kg (285-295); Potassium 5.3 mmol/L (3.5-5.1); Sodium 146 mmol/L (136-145)
[2021-06-10 18:57] LABS: Potassium, Radom Urine 31 mmol/L; Urine Random Chloride 84 mmol/L; Urine Random Sodium 92 mmol/L
[2021-06-10] MEDS: pantoprazole 40 mg SDV IVP (19:16)
[2021-06-11] VITALS (26 sets, daily range): BP systolic 117–170; BP diastolic 70–100; PULSE 63–88; RESP 14–22; TEMP 36.1–36.9; O2SAT 92–99
--- NOTE | 2021-06-11 | SCC_ITS ---
Procedure done: 1. Cystoscopy with bilateral retrograde ureteropyelogram with intraoperative interpretation exclusive of radiology 2. Bilateral ureteral stent placement (7 Czech by 24 cm double-pigtail no string) 42.9 seconds of fluoroscopic guidance, for a cumulative dose of 25.59 mGy, was provided to Dr. Gudino by the radiology department. C-arm images of the abdomen were saved for the patient's permanent record. [facility]
[2021-06-11] MEDS: lanolin oint 7 gm 1 APPLIC TOPICAL (00:48)
[2021-06-11 04:04] LABS: Alanine Aminotransferase 13 U/L (0-33); Albumin Level 3.3 g/dL (3.5-5.2); Alkaline Phosphatase 62 IU/L (35-105); Blood Urea Nitrogen 40 mg/dL (8-23); Carbon Dioxide 21 mmol/L (22-29); Chloride 110 mmol/L (98-107); Globulin 2.3 g/dL (1.3-4.6); Glucose 89 mg/dL (65-115); Osmolality Calculated 309 mOsm/kg (285-295); Phosphorus 6.5 mg/dL (2.5-4.5); Sodium 145 mmol/L (136-145); Total Bilirubin 0.4 mg/dL (0.15-1.2); Total Protein 5.6 g/dL (6.6-8.7)
[2021-06-11 04:12] LABS: Anion Gap 18.8 (5-19); Aspartate Amino Transferase 20 U/L (0-32); Potassium 4.8 mmol/L (3.5-5.1)
[2021-06-11 04:17] LABS: 25 Hydroxy Vitamin D 21 ng/mL (30-100)
[2021-06-11 06:24] LABS: Basophils % 0.4 %; Eosinophils # 0.3 10^3/uL (0.0-0.8); Eosinophils % 3.7 %; Hematocrit 23.6 % (37.0-47.0); Hemoglobin 7.2 g/dL (11.5-15.3); Lymphocytes # 1.4 10^3/uL (0.8-4.8); Mean Corpuscular HGB Conc 30.5 g/dL (30.0-36.0); Mean Corpuscular Hemoglobin 29.8 pg (28.0-34.0); Mean Corpuscular Volume 97.5 fl (81-99); Mean Platelet Volume 8.9 fL (7.4-10.4); Monocytes # 0.6 10^3/uL (0.2-0.9); Monocytes % 9.1 %; Neutrophils # 4.37 10^3/uL (1.8-7.7); Neutrophils % 65.4 %; Nucleated Red Blood Cells % 0 %; Platelet Count 169 10^3/cmm (130-400); Red Blood Count 2.42 10^6/uL (4.1-5.3); Red Cell Distribution Width 15.4 % (12.1-15.1); White Blood Count 6.7 10^3/uL (4.0-10.0)
[2021-06-11 06:55] LABS: Calcium 8.1 mg/dL (8.5-10.5)
[2021-06-11 07:01] LABS: Parathyroid Hormone 201.8 pg/mL (15-65)
[2021-06-11] MEDS: sodium chloride 0.9% 500 ML IV (07:30)
[2021-06-11] MEDS: scopolamine 1.5 Patch 1 PATCH TRANSDERMA (07:44)
--- NOTE | 2021-06-11 07:46 | PC.NURSE ---
Lovenox not given per Dr Victoria orders
--- NOTE | 2021-06-11 08:37 | P.ANESUD_ITS ---
Pre-Anesthetic Update Pre-Anesthetic Assessment: Date of Surgery/Procedure: 06/11/21 Preop Lo gnosis: Postmenopausal bleeding, anemia, left ovarian mass Proposed Procedure: Operation Date: 06/11/21 07:50 Proposed Procedures p Hysteroscopy w/ Myosure 74699/n95.0/n84.1(Not Applicable) - Matt Victoria MD s Dilation And Curettage (D&C)(Not Applicable) - Matt Victoria MD s Cystoscopy(Not Applicable) - Taras Gudino MD s Ureteral Stent Placement(Bilateral) - Taras Gudino MD Any changes to Pre-Anesthetic Assessment?: Yes Changes from Pre-Anesthetic Assessment: Patient w/ hgb of 6.1 requiring admission and transfusion, also now with KAT Last Intake: Intake Last Liquid Date 06/10/21 Last Liquid Time 23:59 Last Solid Date 06/10/21 Last Solid Time 18:30 Labs Last 48hrs: Short CBC 06/09/21 06/10/21 06/11/21 Range/Units 17:09 07:47 03:31 WBC 6.6 7.7 Cancelled (4.0-10.0) 10^3/ uL Hgb 5.7 L* 7.9 L D Cancelled (11.5-15.3) g/dL Hct 19.3 L* 26.5 L D Cancelled (37.0-47.0) % MCV 102.1 H 100.0 H Cancelled (81-99) fl Plt Count 200 187 Cancelled (130-400) 10^3/c mm Neut % (Auto) 55.7 68.0 Cancelled % Neut # (Auto) 3.67 5.24 Cancelled (1.8-7.7) 10^3/u L 06/11/21 Range/Units 06:02 WBC 6.7 (4.0-10.0) 10^3/ uL Hgb 7.2 L (11.5-15.3) g/dL Hct 23.6 L (37.0-47.0) % MCV 97.5 (81-99) fl Plt Count 169 (130-400) 10^3/c mm Neut % (Auto) 65.4 % Neut # (Auto) 4.37 (1.8-7.7) 10^3/u L BMP 06/09/21 06/10/21 06/10/21 17:09 07:47 15:10 Sodium 142 144 146 H Potassium 5.2 H 4.7 5.3 H Chloride 105 109 H 108 H Carbon Dioxide 23 21 L 21 L BUN 42 H 43 H 41 H Creatinine 4.6 H 5.0 H 5.3 H Glucose 92 95 83 Calcium 8.0 L 8.3 L 8.4 L 06/11/21 03:31 Sodium 145 Potassium 4.8 Chloride 110 H Carbon Dioxide 21 L BUN 40 H Creatinine 5.1 H Glucose 89 Calcium 8.0 L Cardiac Enzymes 06/09/21 06/09/21 Range/Units 17:09 17:09 Creatine Kinase 78 (26-192) U/L NT-Pro-B Natriuret Pep 1734 H (0-450) pg/mL Liver Function 06/09/21 06/11/21 Range/Units 17:09 03:31 Total Bilirubin 0.2 0.4 (0.15-1.2) mg/dL AST 16 20 (0-32) U/L ALT 10 13 (0-33) U/L Alkaline Phosphata se 69 62 (35-105) IU/L Albumin 3.6 3.3 L (3.5-5.2) g/dL Urine 06/09/21 Range/Units 17:32 Urine Color Yellow (Yellow) Urine Appearance Cloudy (CLEAR) Urine pH 6.5 (5-7) Ur Specific Gravit y 1.010 (1.005-1.030) Urine Protein Neg (Negative) Urine Glucose (UA) Norm (Normal) Urine Ketones Negative (Negative) Urine Nitrate Negative (Negative) Urine Bilirubin Neg (Negative) Ur Leukocyte Noris ase 2+ H (Negative) Blood Bank 06/09/21 17:09 Blood Type O Negative Rho(D) Type Negative Antibody Screen Negative Vitals: Temperature 97.5 F L 06/11/21 06:56 Temperature Source Temporal Artery S can 06/11/21 06:56 Pulse Rate 79 06/11/21 06:56 Pulse Rhythm 06/10/21 03:50 Pulse Strength 3+ Normal 06/10/21 03:50 Respiratory Rate 18 06/11/21 06:56 Respiratory Effort Non-Labored 06/10/21 20:00 Respiratory Depth Normal 06/10/21 20:00 Respiratory Patter n 06/10/21 20:00 Blood Pressure 154/74 06/11/21 06:56 Blood Pressure Abi n 100 06/11/21 06:56 Blood Pressure Pos ition Sitting 06/10/21 20:13 Pulse Oximetry 98 06/11/21 06:56 Oxygen Delivery Me thod 06/11/21 06:56 Exam: Pre-Anes Outpt Exam: alert, oriented x 3, clear to auscultation bilaterally and regular rate & rhythm Cardiac Studies: No Data to Display
--- NOTE | 2021-06-11 08:44 | W.PM.OPSUD ---
Surgery/Procedure H&P Update DATE OF PROCEDURE: June 11, 2021 DATE H&P PERFORMED: 06/09/21 H&P UPDATE INFORMATION: I have reviewed H&P completed within last 30 days, I have examined patient prior to procedure and Changes to prior documentation as noted here (vaginal bleeding, Anemia) PREOP DIAGNOSIS: Postmenopausal bleeding, anemia, left ovarian mass PLANNED PROCEDURE: Operation Date: 06/11/21 07:50 Proposed Procedures p Hysteroscopy w/ Myosure 67235/n95.0/n84.1(Not Applicable) - Matt Victoria MD s Dilation And Curettage (D&C)(Not Applicable) - Matt Victoria MD s Cystoscopy(Not Applicable) - Taras Gudino MD s Ureteral Stent Placement(Bilateral) - Taras Gudino MD
[2021-06-11] MEDS: sodium chloride 0.9% 1,000 ML 30 ML IV (09:09)
--- NOTE | 2021-06-11 09:34 | PM.OP ---
Operative Report Date of procedure: June 11, 2021 Pre-op diagnosis: Bilateral ureteral obstruction with hydronephrosis and renal failure Post-op diagnosis: Bilateral ureteral obstruction with hydronephrosis and renal failure Procedure done: 1. Cystoscopy with bilateral retrograde ureteropyelogram with intraoperative interpretation exclusive of radiology 2. Bilateral ureteral stent placement (7 Bahamian by 24 cm double-pigtail no string) Surgeon: Shahab Anesthesia: General Estimated blood loss: None Urine output: Not measured Complications: None Brief History: Ms. Levine is a delightful 76-year-old white female recently discovered to have renal failure with bilateral hydronephrosis and further information on CT scan delineated the level of obstruction in the pelvis associated with the pelvic mass. Work-up is ongoing for the diagnosis and I was requested for evaluation for obstructive uropathy. It was elected to proceed with bilateral ureteral stent placement. Procedure: After routine preoperative evaluation examination and obtaining of informed consent she was taken to the operating suite on 06/11/2021 where general anesthesia was administered without difficulty after appropriate timeout was performed, SCDs confirmed to be functioning, preoperative antibiotics administered, beta-jordyn protocol confirmed. Prepped and draped in usual sterile fashion in dorsolithotomy position paying careful attention to avoiding pressure points. 21 Bahamian cystoscope with 30 degree lens was introduced into the urethra meatus and advanced into the bladder under videoscopy. Bladder was systematically examined demonstrating a large posteriorly impinging mass from extrinsic to the bladder. The trigone was somewhat elevated. Both orifices were easily identified. There is no other significant mucosal abnormality. An 8 Bahamian cone-tip catheter was intubated to the right ureteral orifice for RIGHT retrograde ureteropyelogram which demonstrated some irregularity of the ureter in the pelvic area with a more distinct narrowing just about the level of the vessels on the right side. Proximal to that the ureter was markedly dilated. The catheter was then advanced into the LEFT ureter for retrograde ureteropyelogram which confirmed some milder narrowing with less irregularity in the pelvic area. The ureter proximal to the narrowing was not nearly as dilated as the other side. No other filling defects could be identified. Flexible tip guidewire was then advanced up the right ureter into the area of the kidney and a 7 Bahamian by 24 cm double-pigtail stent was advanced over the guidewire through the cystoscope into appropriate position as confirmed via fluoroscopy and cystoscopy. The wire was then advanced up the LEFT ureter and the stent was placed in the same fashion same size Both stents were confirmed to be draining. Procedure was tolerated well. Patient was then turned over to Dr. Victoria for his portion of the procedure. See his dictation under separate cover.
--- NOTE | 2021-06-11 09:40 | SC_ITS ---
WS: [id number] INTRAOPERATIVE TECHNIQUE: 41 Spot fluoroscopic images for intraoperative purposes. FLUOROSCOPY TIME: 42.9 seconds CLINICAL INFORMATION: OR PICS COMPARISON: None. FINDINGS: Fluoroscopy used for bilateral double-J ureteral stent placement. Bilateral moderate hydronephrosis. Bilateral contrast injection of the ureters with segmental visualization. SC/C-arm FL for Urology IMPRESSION: Images obtained for intraoperative purposes.
--- NOTE | 2021-06-11 10:18 | PM.OP ---
Operative Report Date of procedure: June 11, 2021 Pre-op diagnosis: Preop Diagnosis Postmenopausal bleeding, anemia, left ovarian mass Bilateral ureteral obstruction with hydronephrosis and renal failure Post-op diagnosis: Postmenopausal bleeding. Adnexal mass Anemia. Post-op findings: Abundant endometrial and endocervical tissue Procedure done: Hysteroscopy with D&C via MyoSure Specimens removed/disposition: Endocervical curetting tissue. Endometrial polyp and tissue Surgeon: Matt Victoria MD Estimated blood loss (mL): 200 IV fluids (mL): 300 Procedure: After informed consent, the risks included but were not limited to bleeding, infection, injury to internal organs. The patient was counseled on a possible laparotomy and on the potential need for hysterectomy. The patient expressed understanding of the risks involved, all questions were answered, and the patient consented to the procedure. The patient was taken to the operating room where general anesthesia was administered. She was placed in the dorsal lithotomy position and prepped and draped in sterile fashion. A time out procedure was performed. The patient was examined under anesthesia and found to have a dificult to assess due to body habitus. A sterile open side bivalve speculum was placed in the vagina to gain visualization of the cervix which was cleansed with a betadine solution. The anterior lip of the cervix was grasped with a tenaculum. The cervix was then serially dilated to 17 mm. An endocervical curettage was performed. The uterus was then gently sounded to 9 cm, and the cervix was dilated. The 0 degrees MyoSure hysteroscope was advanced gently to the uterine fundus while visualizing the monitor. Survey of the uterine cavity showed: Redundant endometrial tissue, the fundus shows redundant endometrial tissue; left ostium was visualized, and lateral wall with redundant endometrial tissue; right ostium not visualized, and lateral wall with redundant endometrial tissue; anterior and posterior elena are with redundant endometrial tissue; endocervical canal is redundant fibrile tissue. The MyoSure device was advanced and the direct visualization the endometrial tissue was morcellated without complication. At the end of morcellation the fluid deficit was 570 mL and was estimated at approximately 300 mL were on the floor. There was minimal bleeding noted and the tenaculum removed with goad hemostasis noted. The patient tolerated the procedure well. The patient was taken to the recovery area in stable condition.
--- NOTE | 2021-06-11 10:36 | SUR.PHASEI ---
1023 PT TO PACU 2 PT SLEEPS WITH GOOD RESP EFFORT, VSS , ID BRACELET TO LT WRIST, PT ID WITH 2 IDENTIFIERS, PT TEMP 97, WARM BLANKETS X 2 TO PT, ABDOMEN SOFT , BILAT FOOT PUMPS ON AND WORKING, SALMA PAD IN PLACE D/I
--- NOTE | 2021-06-11 11:30 | SUR.PHASEI ---
1129 PT TO FLOOR PER CART WITH RN, PT CHANGED PER INCONTINENCE, PT WITH LT PINK URINE NOTED TO SHEETS AND BED LEE, COMPLETE LINEN CHANGE DONE, APPROX 300 URINE NOTED TO SHEETS AND LEE. PT AWAKE ALERT , DAUGHTER NOTIFIED PT RECOVERED AND STABLE AND WILL WALK UP TO FLOOR WITH PT AND NURSE.
--- NOTE | 2021-06-11 12:14 | P.PN_ITS ---
Subjective Subjective: hungry. s/p OR. almodovar removed- excellent uop. is hungry Medications: Reviewed: Yes Medication Review Details: Current Medications Acetaminophen (Acetaminophen 325 Mg Tablet) 650 mg PO Q6H PRN PRN Reason: Mild Pain or Temp >100.4 Hydrocodone Bitart/Acetaminophen (Hydrocodone-Acetaminophen 5-325 Mg Tablet) 1 - 2 tab PO Q6H PRN PRN Reason: MODERATE TO SEVERE PAIN Al Hydrox/Mg Hydrox/Simethicone (Ehfy-Eyq-[place] 30 Ml Udc) 30 ml PO Q4H PRN PRN Reason: INDIGESTION Docusate Sodium (Docusate Sodium 100 Mg Capsule) 100 mg PO BID ANGIE Sodium Chloride (Sodium Chloride 0.9%) 500 mls @ 500 mls/hr IV .Q1H PRN PRN Reason: urine output Dextrose/Lactated Ringer's (Dextrose 5%-Lactated Ringers) 1,000 mls @ 125 mls/hr IV .Q8H ANGIE Ibuprofen (Ibuprofen 800 Mg Tablet) 800 mg PO Q8H ANGIE Ketorolac Tromethamine (Ketorolac 30 Mg/Ml Inj) 30 mg IVP Q6H ANGIE Stop: 06/12/21 05:47 Ondansetron HCl (Ondansetron 2 Mg/Ml Sdv 2 Ml) 4 mg IVP Q4H PRN PRN Reason: NAUSEA Simethicone (Simethicone 80 Mg Chew) 80 mg PO QID PRN PRN Reason: Gas distention Vitals/I&O/Wt Last Vital Signs Temp 97.6 F 06/11/21 11:46 Pulse 69 06/11/21 11:46 Resp 14 06/11/21 11:46 BP 164/94 06/11/21 11:46 Pulse Ox 92 06/11/21 11:46 06/10/21 06/11/21 06/11/21 22:59 06:59 14:59 Intake Total 660 / 1100 330 / 1430 560 / 560 Output Total 700 / 1100 500 / 1600 200 / 200 Balance -40 / 0 -170 / -170 360 / 360 Weight last 48 hrs Weight 129.818 kg Weight 118.841 kg Physical Exam Narrative: obese, NARD heent- nc/at, eomi, anicteric neck supple, raman jvp lungs clear b/l heart reg, + s1, s2 abd soft, nt, nd, + bs ext 1+ b/l edema neuro- a,a, o x 3 no almodovar Urinary Catheter Management: Almodovar: Cath Placed During This Visit: yes, but has since been removed by the nurse Reason for Continuing Indwelling Catheter: Other Urinary Catheter Date of Insertion: 06/09/21 Urinary Catheter Time of Insertion: 17:29 Date Urinary Catheter Removed: 06/10/21 Time Urinary Catheter Discontinued: 02:00 Data : 06/11/21 06:02 06/11/21 03:31 A&P Assessment and plan (1) Acute kidney injury: 76 yr old female here w/ gun bleed, b/l hydronephrosis, and kat 1. s/p and SORORITY SUPERVISOR bleed surgery this am- hysteroscopy and Cystoscopy with bilateral ureteral stent placement 2. KAT - from b/l hydronephrosis- monitor s/p b/l stents -D/C ALL NSAID'S W/ KAT 3. anemia from SORORITY SUPERVISOR masses and bleeds 4. Hyperkalemia -improved s/p kayexalate 5. MILD MET ACIDOSIS FROM KAT 6. HYPERNATREMIA- monitor w/ fluids 7. hyperphosphatemia from KAT- if hydro resolves, phos should improve seen and examined w/ RN- telehealth visit time spent 30 min Status: Acute Plan see above Attestations Medical Necessity Statement*: kat, electrolyte abnormalities, anemia, and hydronephrosis b/l Time Spent in Patient Care: 16 - 35 minutes (>than 50% of time spent in counselling and/or direct pt care on unit) . Coding Level of Care Code Acute Director Game for Tono Mejia Diagnoses Acute kidney injury N17.9
--- NOTE | 2021-06-11 12:24 | P.PN_ITS ---
Subjective Subjective: Patient was seen this morning, in PACU, she just underwent surgical procedure by Dr. Gudino and Dr. Victoria, denies any bloody or black stools overnight, denies any lightheadedness, no nausea, no vomiting Vitals/I&O/Wt Last Vital Signs Temp 97.6 F 06/11/21 11:46 Pulse 69 06/11/21 11:46 Resp 14 06/11/21 11:46 BP 164/94 06/11/21 11:46 Pulse Ox 92 06/11/21 11:46 06/10/21 06/11/21 06/11/21 22:59 06:59 14:59 Intake Total 660 / 1100 330 / 1430 560 / 560 Output Total 700 / 1100 500 / 1600 200 / 200 Balance -40 / 0 -170 / -170 360 / 360 Weight last 48 hrs Weight 129.818 kg Weight 118.841 kg Physical Exam Const: COMMON NORMALS: no acute distress and patient oriented x3 Resp: COMMON NORMALS: normal respiratory effort, No retractions, No use of accessory muscles and clear to auscultation bilaterally AUSCULTATION: clear to auscultation bilaterally Cardio: COMMON NORMALS: regular rate, regular rhythm, S1 normal heart sound present and S2 normal heart sound present RATE: regular rate RHYTHM: regular rhythm HEART SOUNDS: S1 normal heart sound present and S2 normal heart sound present GI: COMMON NORMALS: Normal to inspection, nondistended, normoactive bowel sounds present, Soft to palpation and non-tender PALPATION: Yes Soft to palpation Extremity: COMMON NORMALS: no pedal edema Neuro: COMMON NORMALS: patient oriented x3 Psych: COMMON NORMALS: mental status grossly normal Urinary Catheter Management: Stanley: Cath Placed During This Visit: yes, but has since been removed by the nurse Reason for Continuing Indwelling Catheter: Other Urinary Catheter Date of Insertion: 06/09/21 Urinary Catheter Time of Insertion: 17:29 Date Urinary Catheter Removed: 06/10/21 Time Urinary Catheter Discontinued: 02:00 Data : 06/11/21 06:02 06/11/21 03:31 A&P Assessment and plan (1) Bilateral hydronephrosis: Status: Acute (2) Hydroureteronephrosis: Status: Deleted (3) Right leg DVT: Status: Acute (4) Bilateral tubo-ovarian mass: Status: Acute (5) Acute kidney injury: Status: Acute Plan Acute blood loss anemia related to abnormal uterine bleeding -Status post 2 units PRBC, posttransfusion H&H 7.2 -Currently hemodynamically stable, recheck hemoglobin at noon -Monitor hemodynamics, monitor hemoglobin Status post hysteroscopy today Bilateral ovarian mass -Right right adnexal 7 cm and left adnexal 5.2 cm solid-appearing mass lesions appear new compared to prior exam without surrounding inflammation, consider further evaluation with ultrasound and/or contrast infused CT. Bilateral hydronephrosis, hydroureter, creatinine did not improve with Stanley catheter placement or IV fluids, creatinine up to 5.0, concerning for obstruction related to bilateral ovarian masses -Discussed with Dr. Jean, status post bilateral ureteral stent placement Acute renal failure, creatinine 5.2, Stanley catheter placed, monitor urine output, monitor creatinine, renal ultrasound shows bilateral hydronephrosis, bilateral hydroureter -Continue IV fluids Right lower extremity DVT Thrombus Proximal Right? GSV extends to the confluence of common ?femoral vein. Thrombus extends in the GSV below the knee. Due to anemia cannot tolerate anticoagulation, discussed with Dr. Carrasco, agreeable to IVC filter placement, however given elevated creatinine, risk of furthering worsening creatinine with contrast induced renal nephropathy, monitor renal function after ureteral stent placement and on fluids, if renal function improves, will proceed with IVC filter placement at some point Acute hyperkalemia, resolved Will discuss with surgeons involved, hopefully we can coordinate all procedures at the same time DNR/DNI SCDs for DVT prophylaxis Attestations Medical Necessity Statement*: Patient requires hospitalization for right lower extremity DVT, acute blood loss anemia, acute renal failure, bilateral hydroureteronephrosis, Coding Level of Care Code Acute Facilities Assistant for Chg Fwd Diagnoses Bilateral hydronephrosis N13.30 Hydroureteronephrosis N13.30 Right leg DVT I82.401 Bilateral tubo-ovarian mass N83.8 Acute kidney injury N17.9
[2021-06-11] MEDS: dextrose 5%-lactated ringers 1,000 ML 125 ML IV ×2 (13:16→21:20)
--- NOTE | 2021-06-11 13:33 | ANE.PACU2 ---
Inpatient post-anesthesia follow up: Airway intact: Yes Vital signs: Temperature 97.6 F Pulse Rate 69 Respiratory Rate 14 Blood Pressure 164/94 Pulse Oximetry 92 Oxygen Delivery Me thod Room Air Oxygen Flow Rate 6 Fraction of Inspir ed Oxygen Hydration adequate: Yes Nausea and vomiting: No Pain level: 2 Mental status: Baseline
[2021-06-12] VITALS (22 sets, daily range): BP systolic 116–178; BP diastolic 55–109; PULSE 67–92; RESP 13–19; TEMP 36.1–37.1; O2SAT 91–100
--- NOTE | 2021-06-12 | XR_ITS ---
WS: [id number] INTRAOPERATIVE TECHNIQUE: 2 Spot fluoroscopic images for intraoperative purposes. FLUOROSCOPY TIME: 206.5 seconds CLINICAL INFORMATION: [facility] IMAGES COMPARISON: None. FINDINGS: Partially visualized bilateral ureteral stents. IVC filter. XR/XR abdomen 1V* [id number] IMPRESSION: Images obtained for intraoperative purposes.
--- NOTE | 2021-06-12 | SCC_ITS ---
Procedure done: IVC filter placement 206.5 seconds of fluoroscopic guidance, for a cumulative dose of 92.63 mGy, was provided to Dr. Carrasco by the radiology department. C-arm images of the abdomen were saved for the patient's permanent record. RUDDYD
[2021-06-12] MEDS: dextrose 5%-lactated ringers 1,000 ML 125 ML IV (05:31)
[2021-06-12 06:18] LABS: Glucose Point of Care 146 mg/dL (70-110)
--- NOTE | 2021-06-12 07:57 | PM.PN ---
Subjective Subjective: feels better. good uop. no n/v/f/c/oliver. wants to go home. Medications: Reviewed: Yes Medication Review Details: Current Medications Acetaminophen (Acetaminophen 325 Mg Tablet) 650 mg PO Q6H PRN PRN Reason: Mild Pain or Temp >100.4 Hydrocodone Bitart/Acetaminophen (Hydrocodone-Acetaminophen 5-325 Mg Tablet) 1 - 2 tab PO Q6H PRN PRN Reason: MODERATE TO SEVERE PAIN Docusate Sodium (Docusate Sodium 100 Mg Capsule) 100 mg PO BID [facility] Last Admin: 06/11/21 18:32 Dose: Not Given Documented by: Sodium Chloride (Sodium Chloride 0.9%) 500 mls @ 500 mls/hr IV .Q1H PRN PRN Reason: urine output Dextrose/Lactated Ringer's (Dextrose 5%-Lactated Ringers) 1,000 mls @ 125 mls/hr IV .Q8H [facility] Last Admin: 06/12/21 05:31 Dose: 125 mls/hr Documented by: Ondansetron HCl (Ondansetron 2 Mg/Ml Sdv 2 Ml) 4 mg IVP Q4H PRN PRN Reason: NAUSEA Simethicone (Simethicone 80 Mg Chew) 80 mg PO QID PRN PRN Reason: Gas distention Vitals/I&O/Wt Last Vital Signs Temp 98.7 F 06/12/21 07:48 Pulse 73 06/12/21 07:48 Resp 13 06/12/21 07:48 BP 147/83 06/12/21 07:48 Pulse Ox 97 06/12/21 07:48 06/11/21 06/12/21 06/12/21 22:59 06:59 14:59 Intake Total 1000 / 1730 2470 / 4200 Output Total 1700 / 1900 2900 / 4800 Balance -700 / -170 -430 / -600 Physical Exam Narrative: obese, NARD heent- nc/at, eomi, anicteric neck supple, raman jvp lungs clear b/l heart reg, + s1, s2 abd soft, nt, nd, + bs ext trace b/l edema neuro- a,a, o x 3 no almodovar Urinary Catheter Management: Almodovar: Cath Placed During This Visit: yes, but has since been removed by the nurse Reason for Continuing Indwelling Catheter: Other Urinary Catheter Date of Insertion: 06/09/21 Urinary Catheter Time of Insertion: 17:29 Date Urinary Catheter Removed: 06/10/21 Time Urinary Catheter Discontinued: 02:00 Data : 06/11/21 06:02 06/11/21 03:31 A&P Assessment and plan (1) Acute kidney injury: 76 yr old female here w/ gun bleed, b/l hydronephrosis, and kat 1. s/p and HEEL SEAM RUBBER bleed surgery this am- hysteroscopy and Cystoscopy with bilateral ureteral stent placement 2. KAT - from b/l hydronephrosis- monitor uop and chem 7 s/p b/l stents -no NSAID'S W/ KAT 3. anemia from HEEL SEAM RUBBER masses and bleeds 4. Hyperkalemia -improved s/p kayexalate 5. MILD MET ACIDOSIS FROM KAT 6. HYPERNATREMIA- monitor w/ fluids 7. hyperphosphatemia from KAT- if hydro resolves, phos should improve seen and examined w/ RN- telehealth visit time spent 25 min Status: Acute Plan see above Attestations Medical Necessity Statement*: kat, hyperkalemia, b/l hydronephrosis Time Spent in Patient Care: 16 - 35 minutes (>than 50% of time spent in counselling and/or direct pt care on unit). Coding Level of Care Code Acute Record Pressman for Tono Mejia Diagnoses Acute kidney injury N17.9
[2021-06-12 09:02] LABS: Basophils % 0.1 %; Eosinophils % 0.1 %; Hematocrit 24.1 % (37.0-47.0); Hemoglobin 7.1 g/dL (11.5-15.3); Lymphocytes # 1.5 10^3/uL (0.8-4.8); Lymphocytes % 16.9 %; Mean Corpuscular HGB Conc 29.5 g/dL (30.0-36.0); Mean Corpuscular Hemoglobin 30.1 pg (28.0-34.0); Mean Corpuscular Volume 102.1 fl (81-99); Mean Platelet Volume 9.1 fL (7.4-10.4); Monocytes # 0.8 10^3/uL (0.2-0.9); Monocytes % 9.4 %; Neutrophils # 6.42 10^3/uL (1.8-7.7); Nucleated Red Blood Cells % 0 %; Platelet Count 183 10^3/cmm (130-400); Red Blood Count 2.36 10^6/uL (4.1-5.3); Red Cell Distribution Width 15.1 % (12.1-15.1); White Blood Count 8.8 10^3/uL (4.0-10.0)
[2021-06-12 09:14] LABS: Magnesium 1.6 mg/dL (1.7-2.3); Phosphorus 3.3 mg/dL (2.5-4.5)
[2021-06-12 09:16] LABS: Alanine Aminotransferase 9 U/L (0-33); Albumin Level 3.4 g/dL (3.5-5.2); Alkaline Phosphatase 61 IU/L (35-105); Anion Gap 15.1 (5-19); Aspartate Amino Transferase 13 U/L (0-32); Blood Urea Nitrogen 19 mg/dL (8-23); Calcium 8.3 mg/dL (8.5-10.5); Carbon Dioxide 23 mmol/L (22-29); Chloride 109 mmol/L (98-107); Globulin 2.7 g/dL (1.3-4.6); Glucose 128 mg/dL (65-115); Osmolality Calculated 300 mOsm/kg (285-295); Potassium 4.1 mmol/L (3.5-5.1); Sodium 143 mmol/L (136-145); Total Bilirubin 0.3 mg/dL (0.15-1.2); Total Protein 6.1 g/dL (6.6-8.7)
[2021-06-12] MEDS: magnesium sulfate premix 4 GM/100 ML PREMIX IV (09:54)
--- NOTE | 2021-06-12 09:56 | P.CONIM_ITS ---
Providers/Reason For Consult Consulting Physician/Specialty*: Dr. Carrasco/cardiothoracic surgery. Reason for Consult*: DVT/contraindication to anticoagulation Requesting Physician: Dr. Ang Attending Physician: Armnado Slater MD Primary Care Provider: Nils Gambino DO History of Present Illness History of Present Illness Francie Levine is a 76 year old female with a history of B-cell lymphoma who was recently admitted for vaginal bleeding with subsequent evaluations including CT scan which reveals bilateral adnexal masses with hydronephrosis and dilated ureters. She was also found to have acute renal insufficiency with a creatinine of 5. There was concerned that this may represent a malignant process. She underwent bilateral ureteral stent placement by Dr. Gudino and subsequent hysteroscopies and biopsy by Dr. Victoria yesterday. During evaluation, she was found to have thrombus in the right greater saphenous vein extending from the junction with the common femoral vein. Original discussion was to consider IVC filter placement, though I was reluctant acutely later to her renal insufficiency and inability to give contrast for renal vein localization. Subsequently, since procedures by Dr. Victoria and Dr. Gudino, her creatinine has now rapidly decreased and is now 1.8. Given the normalizing renal function, while she is currently hospitalized, it appears reasonable to proceed with filter placement. Review of Systems Const: Denies: fever(s) or chills Eyes: Denies: change in vision Resp: Denies: dyspnea or productive cough GI: Denies: abdominal pain, nausea or vomiting : Reports: flank pain, vaginal bleeding and metrorrhagia; Denies: hematuria Neuro: Denies: headache(s), weakness in extremities or sensory changes Endo: Denies: polyuria Wally/Lymph: Denies: easy bruising Medications/Allergies Home Medications Medication Instructions Recorded Confirmed Last Taken Type loratadine 10 mg tablet (Claritin) 10 mg PO DAILY PRN 02/14/21 06/09/21 Unknown History acetaminophen 650 mg 1,300 mg PO .daily tab 05/19/21 06/09/21 06/09/21 History tablet,extended release (Tylenol Arthritis Pain) Allergies Allergy/AdvReac Type Severity Reaction Status Date / Time No Known Allergies Allergy Verified 06/09/21 19:26 Current Medications Generic Name Dose Route Start Last Admin Trade Name Freq PRN Reason Stop Dose Admin Docusate Sodium 100 mg 06/11/21 18:00 06/12/21 08:52 Docusate Sodium 100 Mg Capsule PO Not Given BID ANGIE Dextrose/Lactated Ringer's 1,000 mls @ 125 mls/hr 06/11/21 11:46 06/12/21 05:31 Dextrose 5%-Lactated Ringers IV 125 mls/hr .Q8H ANGIE Administration PFSH Acute PFSH: Medical History Diffuse large B cell lymphoma Port-A-Cath in place Status post insertion of nerve stimulator Surgical History H/O cataract extraction bilateral eyes H/O tubal ligation History of colon resection History of left knee replacement History of removal of Port-a-Cath History of total right knee replacement S/P cholecystectomy Family History Mother Hypertension Father Colon cancer 72 Denies family history of Ovarian cancer Diabetes Clotting disorder Heart disease Hyperlipidemia Breast cancer Anesthesia complication Bleeding disorder Uterine cancer Thyroid condition Stroke Social History Smoking and tobacco status: former smoker Second hand smoke exposure: No Alcohol intake: never Adopted: No Caregiver/support person: Yes Lives independently: Yes Household members: significant other Housing: House Marital status: / service: No Current occupational status: retired Current occupational exposures/hazards: No Pets and animals: Yes History of recent travel: No Leisure activites: exercise Sexually active: No Current gender identity: Female Cheli/Taoist: Hinduism Vitals/I&O/Wt Last Vital Signs Temp 98.7 F 06/12/21 07:48 Pulse 68 06/12/21 09:01 Resp 16 06/12/21 09:01 BP 147/83 06/12/21 07:48 Pulse Ox 95 06/12/21 09:01 06/11/21 06/12/21 06/12/21 22:59 06:59 14:59 Intake Total 1000 / 1730 2470 / 4200 Output Total 1700 / 1900 2900 / 4800 Balance -700 / -170 -430 / -600 Physical Exam HENMT: COMMON NORMALS: normocephalic HEAD & SCALP: normocephalic Neck/C-Spine: COMMON NORMALS: full ROM, no lymphadenopathy and No carotid bruits Chest: COMMONS NORMALS: normal palpation of entire chest wall Resp: COMMON NORMALS: normal respiratory effort, No use of accessory muscles and clear to auscultation bilaterally AUSCULTATION: clear to auscultation bilaterally Cardio: COMMON NORMALS: regular rate, regular rhythm, S1 normal heart sound present and No murmurs present (Cardio) RATE: regular rate RHYTHM: regular rhythm HEART SOUNDS: S1 normal heart sound present GI: INSPECTION: Yes central obesity Extremity: OTHER: Palpable varicosities of the lower extremity right greater than left. Negative Homans' sign. Groins are clear bilaterally. Neuro: COMMON NORMALS: moves all extremities, no focal motor deficits, no sensory deficits noted and gait normal Urinary Catheter Management: Stanley: Cath Placed During This Visit: yes, but has since been removed by the nurse Reason for Continuing Indwelling Catheter: Other Urinary Catheter Date of Insertion: 06/09/21 Urinary Catheter Time of Insertion: 17:29 Date Urinary Catheter Removed: 06/10/21 Time Urinary Catheter Discontinued: 02:00 Data : 06/12/21 08:45 06/12/21 08:45 US: Radiologist's impression: Thrombus Proximal Right? GSV extends to the confluence of common ?femoral vein. Thrombus extends in the GSV below the knee. ?Enlarged lymph node left groin 2.0cm ?Popliteal cyst left knee 4.8 x 2.3cm ?Remainder of Bilateral LE veins are patent. A&P Assessment and plan (1) Right leg DVT: Very pleasant 76-year-old female with history of B-cell lymphoma concerns for potential ovarian malignancies with recent stenting and resolution of hydronephrosis and normalization of renal function. Right lower extremity DVT has been documented. Rationale for IVC filter placement, related to the contraindications for anticoagulation due to uterine bleeding were carefully discussed with Ms. Levine. General protocol for IVC filter placement was also reviewed including potential access from the groin regions or the neck. All questions were answered, and she wishes to proceed. Potential for filter migration, inability to place a filter, subsequent need to remove the filter, or need for further procedures were all carefully discussed. We will tentatively plan to proceed with IVC filter placement this evening. Status: Acute Consult Attestations Medical Necessity Statement: Right lower extremity DVT with contraindications to anticoagulation. Coding Level of Care Code New Pt Acute [place] Archeology Professor for Chg Fwd Patient Type New Exam Expanded Problem Focused Medical Decision Making Moderate Complexity Diagnoses Right leg DVT I82.401
--- NOTE | 2021-06-12 10:23 | CT_ITS ---
WS: [id number] CT CHEST TECHNIQUE: Noncontrast CT of the chest with coronal and sagittal reformatted images. 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 DLP: 1117.[address] scans at [facility] use at least one of these dose optimization techniques: automated e xposure control; mA and/or kV adjustment per patient size (includes targeted exams where dose is matc hed to clinical indication); or iterative reconstruction. FINDINGS: Both lungs are well aerated. No acute pulmonary infiltrates. No focal pneumonia or pleural fluid. No evidence of intraparenchymal metastatic disease. Calcified small RIGHT thyroid nodule. Norm al caliber thoracic aorta. Aortic calcification. Coronary calcification. No mediastinal or hilar lymphadenopathy.Normal GE junct ion. Adrenal glands are normal. Partially visualized bilateral ureteral stents. No axillary lymphaden opathy. Dorsal spinal stimulator. Prior cholecystectomy. Advanced degenerative arthritis lumbar spine with prior burst fracture L1. Advanced degenerative dewitt ges with disc space narrowing L1-L2 and L2-L3. CT/CT chest wo con [id number] IMPRESSION: 1. No evidence of intraparenchymal pulmonary metastatic disease. 2. No acute pulmonary infiltrates. No focal pneumonia or pleural fluid. 3. No mediastinal or hilar lymphadenopathy. 4. Dorsal spinal stimulator. 5. No other significant changes compared to prior examinations.
--- NOTE | 2021-06-12 12:20 | PC.SOCIAL ---
IMM update IMM updated with patient and family at bedside. Verbalized an understanding. Copy Pg 2 provided. Initialled, dated, timed, and placed in chart.
--- NOTE | 2021-06-12 13:07 | P.ANESASSM_ITS ---
Pre-Anesthetic Assessment Height/Weight: Height 1.63 m Weight 129.818 kg Temp Pulse Resp BP Pulse Ox 98.7 F 68 16 147/83 95 06/12/21 07:48 06/12/21 09:01 06/12/21 09:01 06/12/21 07:48 06/12/21 09:01 Preop Diagnosis: Postmenopausal bleeding, anemia, left ovarian mass Operation Date: 06/11/21 07:50 Proposed Procedures p Hysteroscopy w/ Myosure 20522/n95.0/n84.1(Not Applicable) - Matt Victoria MD s Dilation And Curettage (D&C)(Not Applicable) - Matt Victoria MD s Cystoscopy(Not Applicable) - Taras Gudino MD s Ureteral Stent Placement(Bilateral) - Taras Gudino MD Operation Date: 06/12/21 16:00 Proposed Procedures p Vena Cava Filter Insertion(Not Applicable) - Korey Carrasco MD Familial anesthetic complications: None Was Beta Carlotta taken within 24 hours: N/A Was Clonidine taken within 24 hours: N/A Last intake: Intake Last Liquid Date 06/10/21 Last Liquid Time 23:59 Last Solid Date 06/10/21 Last Solid Time 18:30 Social No alcohol and No tobacco Exam alert, oriented x 3, clear to auscultation bilaterally and regular rate & rhythm Airway Submandibular: within normal limits Cervical ROM: within normal limits Mallampati: Class II Comments: Comments: Missing Pulmonary Chronic Obstructive Pulmonary Disease and Sleep Apnea CV/HEM Anemia and Deep Vein Thrombosis Obstructive KAT GI Ventral hernia Metabolic Morbid Obesity Musc/skel Osteoarthritis/DJD Neuropsych None reported Anesthetic Plan ASA status: 4 Anesthesia: Anesthesia Evaluation Other: We discussed risk and benefits of general anesthesia including PONV, sore throat (sometimes severe), corneal abrasion, positioning and peripheral nerve injuries, life threatening allergic reaction, post operative ICU admission requiring prolonged intubation, stroke, heart attack, , and rare incidences of recall. Patient consents to proceed with general anesthesia. Risk of > 500 ml blood loss (7ml/kg in children): No Medications/Allergies Home Medications Medication Instructions Recorded Confirmed Last Taken Type loratadine 10 mg tablet (Claritin) 10 mg PO DAILY PRN 02/14/21 06/09/21 Unknown History acetaminophen 650 mg 1,300 mg PO .daily tab 0306/09/21 06/09/21 History tablet,extended release (Tylenol Arthritis Pain) Allergies Allergy/AdvReac Type Severity Reaction Status Date / Time No Known Allergies Allergy Verified 06/09/21 19:26 Current Medications Generic Name Dose Route Start Last Admin Trade Name Freq PRN Reason Stop Dose Admin Docusate Sodium 100 mg 06/11/21 18:00 06/12/21 08:52 Docusate Sodium 100 Mg Capsule PO Not Given BID ANGIE Dextrose/Lactated Ringer's 1,000 mls @ 125 mls/hr 06/11/21 11:46 06/12/21 09:56 Dextrose 5%-Lactated Ringers IV 0 mls/hr .Q8H ANGIE Infusion Additional Medication Information Current Medications Acetaminophen (Acetaminophen 325 Mg Tablet) 650 mg PO Q6H PRN PRN Reason: Mild Pain or Temp >100.4 Hydrocodone Bitart/Acetaminophen (Hydrocodone-Acetaminophen 5-325 Mg Tablet) 1 - 2 tab PO Q6H PRN PRN Reason: MODERATE TO SEVERE PAIN Docusate Sodium (Docusate Sodium 100 Mg Capsule) 100 mg PO BID [facility] Last Admin: 06/11/21 18:32 Dose: Not Given Documented by: Sodium Chloride (Sodium Chloride 0.9%) 500 mls @ 500 mls/hr IV .Q1H PRN PRN Reason: urine output Dextrose/Lactated Ringer's (Dextrose 5%-Lactated Ringers) 1,000 mls @ 125 mls/hr IV .Q8H [facility] Last Admin: 06/12/21 05:31 Dose: 125 mls/hr Documented by: Ondansetron HCl (Ondansetron 2 Mg/Ml Sdv 2 Ml) 4 mg IVP Q4H PRN PRN Reason: NAUSEA Simethicone (Simethicone 80 Mg Chew) 80 mg PO QID PRN PRN Reason: Gas distention PFSH Anesthesia Medical History Diffuse large B cell lymphoma Port-A-Cath in place Status post insertion of nerve stimulator Surgical History H/O cataract extraction bilateral eyes H/O tubal ligation History of colon resection History of left knee replacement History of removal of Port-a-Cath History of total right knee replacement S/P cholecystectomy Family History Mother Hypertension Father Colon cancer 72 Denies family history of Ovarian cancer Diabetes Clotting disorder Heart disease Hyperlipidemia Breast cancer Anesthesia complication Bleeding disorder Uterine cancer Thyroid condition Stroke Social History Smoking and tobacco status: former smoker Second hand smoke exposure: No Alcohol intake: never Adopted: No Caregiver/support person: Yes Lives independently: Yes Household members: significant other Housing: House Marital status: / service: No Current occupational status: retired Current occupational exposures/hazards: No Pets and animals: Yes History of recent travel: No Leisure activites: exercise Sexually active: No Current gender identity: Female Cheli/Zoroastrian: Mandaen Data Anesthesia : 06/12/21 08:45 06/12/21 08:45 Short CBC 06/11/21 06/11/21 06/12/21 Range/Units 03:31 06:02 08:45 WBC Cancelled 6.7 8.8 Hgb Cancelled 7.2 L 7.1 L Hct Cancelled 23.6 L 24.1 L MCV Cancelled 97.5 102.1 H Plt Count Cancelled 169 183 Neut % (Auto) Cancelled 65.4 73.0 Neut # (Auto) Cancelled 4.37 6.42 BMP 06/10/21 06/11/21 06/12/21 15:10 03:31 08:45 Sodium 146 H 145 143 Potassium 5.3 H 4.8 4.1 Chloride 108 H 110 H 109 H Carbon Dioxide 21 L 21 L 23 BUN 41 H 40 H 19 Creatinine 5.3 H 5.1 H 1.8 H Glucose 83 89 128 H Calcium 8.4 L 8.0 L 8.3 L Liver Function 06/11/21 06/12/21 Range/Units 03:31 08:45 Total Bilirubin 0.4 0.3 (0.15-1.2) mg/dL AST 20 13 (0-32) U/L ALT 13 9 (0-33) U/L Alkaline Phosphatase 62 61 (35-105) IU/L Albumin 3.3 L 3.4 L (3.5-5.2) g/dL Blood Bank 06/09/21 17:09 Blood Type O Negative Rho(D) Type Negative Antibody Screen Negative Cardiac Studies: No Data to Display
--- NOTE | 2021-06-12 14:38 | P.PN_ITS ---
Subjective Subjective: Patient was seen this morning, she tells me that she has not eaten anything today, and why am I keeping her n.p.o., discussed her right lower extremity DVT, the need for IVC filter, she understands, creatinine is 1.8, hemoglobin also down to 7.1 she will need a unit of blood, she voices understand ing, but really wants to go home today Vitals/I&O/Wt Last Vital Signs Temp 98.2 F 06/12/21 14:01 Pulse 68 06/12/21 14:01 Resp 15 06/12/21 14:01 BP 143/85 06/12/21 14:01 Pulse Ox 96 06/12/21 14:01 06/11/21 06/12/21 06/12/21 22:59 06:59 14:59 Intake Total 1000 / 1730 2470 / 4200 552.083 / 552.083 Output Total 1700 / 1900 2900 / 4800 Balance -700 / -170 -430 / -600 552.083 / 552.083 Physical Exam Const: COMMON NORMALS: no acute distress and patient oriented x3 Resp: COMMON NORMALS: normal respiratory effort, No retractions, No use of accessory muscles and clear to auscultation bilaterally AUSCULTATION: clear to auscultation bilaterally Cardio: COMMON NORMALS: regular rate, regular rhythm, S1 normal heart sound present and S2 normal heart sound present RATE: regular rate RHYTHM: regular rhythm HEART SOUNDS: S1 normal heart sound present and S2 normal heart sound present GI: COMMON NORMALS: Normal to inspection, nondistended, normoactive bowel sounds present, Soft to palpation and non-tender PALPATION: Yes Soft to palpation Extremity: COMMON NORMALS: no pedal edema Neuro: COMMON NORMALS: patient oriented x3 Psych: COMMON NORMALS: mental status grossly normal Urinary Catheter Management: Stanley: Cath Placed During This Visit: yes, but has since been removed by the nurse Reason for Continuing Indwelling Catheter: Other Urinary Catheter Date of Insertion: 06/09/21 Urinary Catheter Time of Insertion: 17:29 Date Urinary Catheter Removed: 06/10/21 Time Urinary Catheter Discontinued: 02:00 Data : 06/12/21 08:45 06/12/21 08:45 A&P Assessment and plan (1) Bilateral hydronephrosis: Status: Acute (2) Hydroureteronephrosis: Status: Deleted (3) Right leg DVT: Status: Acute (4) Bilateral tubo-ovarian mass: Status: Acute (5) Acute kidney injury: Status: Acute Plan Acute blood loss anemia related to abnormal uterine bleeding -Status post 2 units PRBC, hemoglobin 7.1, will transfuse 1 more unit of PRBC -Currently hemodynamically stable, recheck hemoglobin at noon -Monitor hemodynamics, monitor hemoglobin Status post hysteroscopy today, endocervix and endometrial polyps biopsies 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 Bilateral hydronephrosis, hydroureter, creatinine did not improve with Stanley catheter placement or IV fluids, creatinine up to 5.0, concerning for obstruction related to bilateral ovarian masses -Creatinine down to 1.8 -Discussed with Dr. Jean, status post bilateral ureteral stent placement Acute renal failure, creatinine 1.8 Stanley catheter placed, monitor urine output, monitor creatinine, renal ultrasound shows bilateral hydronephrosis, bilateral hydroureter -Continue IV fluids Right lower extremity DVT Thrombus Proximal Right? GSV extends to the confluence of common ?femoral vein. Thrombus extends in the GSV below the knee. Due to anemia cannot tolerate anticoagulation, discussed with Dr. 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
[2021-06-12] MEDS: lidocaine 2% INJ 20 mL INJECTION (16:10)
[2021-06-12] MEDS: ceFAZolin 1,000 mg SDV 1000 MG IRRIGATION (16:11)
--- NOTE | 2021-06-12 16:38 | SUR.PHASEI ---
PT TO PACU 3 PT AWAKE ALERT , DENIES PAIN AND NAUSEA , GOOD RESP EFFORT NOTED IV # 18 TO RT UPPER ARM WITH NS AT KVO RATE 500ML UP. IV TO LT AC #16 WITH BLOOD IN FUSING UNIT # [id number] AT 120ML /HR PER PUMP. RT GROIN PRESSURE DRESSING D/I DISTAL RT FOOT WITH STRONG PULSES MARKED TO DOSALIS PEDIS, AND POSTERIOR TIBIAL MARKED +1 PITTING EDEMA TO RT LOWER LEG AND FOOT. PT ID BRACELET TO LT WRIST PT ID WITH 2 IDENTIFIERS [id number] PT AWKE ALERT ON RA TRIAL, PT REQUEST BEDPAN, PT ASSISTED TO SIDE AND LEE PLACED. PT DENIES PAIN AND RT GROIN SITE AND DISTAL FOOT UNCHANGED.
--- NOTE | 2021-06-12 16:58 | PM.OP ---
Operative Report Date of procedure: June 12, 2021 Pre-op diagnosis: Preop Diagnosis right lower extremity DVT Post-op diagnosis: same Procedure done: IVC filter placement Implants: IVC filter Pathology: none sent Surgeon: Korey Carrasco Complications: None Brief History: Ms. Levine is a very pleasant short statured, morbidly obese, 76-year-old female who is recently undergone bilateral ureteral stent placement for bilateral hydronephrosis with bilateral adnexal masses noted on CT scan. She is undergoing hysteroscopies and endometrial biopsy by Dr. Victoria for concerns of malignancy. During her initial evaluation, right lower extremity DVT was noted. As she does have uterine bleeding, there is contraindication to anticoagulation therefore IVC filter placement was requested. Rationale was carefully discussed with Ms. Levine. Details and risk of the procedure reviewed. Appropriate consents have been reviewed and signed Procedure: The entire abdomen, lower chest, groin area, perineal area, and thighs to the level of the knees were sterilely prepped and draped. Utilizing modified Seldinger technique with handheld ultrasound identification and guidance, the right femoral vein was aspirated and a guidewire was placed under fluoroscopic guidance. Following incision of the skin with a #11 scalpel blade and predilation, dilator and #7 [place] sheath were then advanced over a 0.035 inch guidewire under fluoroscopic guidance. Next, Omnipaque was utilized to perform a venogram for proper assessment of the renal veins. These were difficult to visualize. Next, a preloaded IVC filter introducer was advanced through the sheath under fluoroscopic guidance into position. Following this, filter was released with fluoroscopic guidance and observation. The filter seated well with minimal angulation. Introducer and sheath were then withdrawn and direct pressure was held on the groin area for 10 minutes until hemostasis was confirmed. A weighted pressure dressing was then applied. The patient tolerated procedure well and was awakened from anesthesia. Vital signs remained stable throughout the procedure. Ms. Levine was transported to PACU. I did career placement services counselor with her family at completion of the procedure.
--- NOTE | 2021-06-12 17:03 | PC.NURSE ---
pt had blood transfusing in room when pacu came to take the pt down to pre op, pre op nurse stated infusion would continue with the pt downstairs. pump and tubing taken down from iv pole and transported with patient. this nurse clarified that vs would continue with pt for monitoring and was told yes. infusion completed in pacu. see TAR and anaesthesia charting for blood vs.
--- NOTE | 2021-06-12 17:15 | SUR.PHASEI ---
1645 BLOOD IN FUSED , LINE FLUSHED WITH NS, PT AWAKE ALERT UNABLE TO USE BEDPAN, RT GROIN SITE D/I NO HEMATOMA NOTED DISTAL PULSES UNCHANGED FROM ADMIT TO PACU.
[2021-06-12] MEDS: sodium chloride 0.9% (100 ml) 100 ML (17:46)
--- NOTE | 2021-06-12 18:52 | ANE.PACU2 ---
Inpatient post-anesthesia follow up: Airway intact: Yes Vital signs: Temperature 97.3 F Pulse Rate 75 Respiratory Rate 18 Blood Pressure 178/95 Pulse Oximetry 94 Oxygen Delivery Me thod Room Air Oxygen Flow Rate 8 Fraction of Inspir ed Oxygen Hydration adequate: Yes Nausea and vomiting: No Pain level: 1 Mental status: Baseline
[2021-06-13 00:36] VITALS: BP 160/76; PULSE 65; RESP 17; TEMP 36.6; O2SAT 95
[2021-06-13 04:00] VITALS: BP 169/92; PULSE 67; RESP 17; TEMP 36.6; O2SAT 95
[2021-06-13 05:18] LABS: Basophils % 0.1 %; Hematocrit 26.6 % (37.0-47.0); Hemoglobin 8.2 g/dL (11.5-15.3); Lymphocytes % 13.6 %; Mean Corpuscular HGB Conc 30.8 g/dL (30.0-36.0); Mean Corpuscular Hemoglobin 29.9 pg (28.0-34.0); Mean Corpuscular Volume 97.1 fl (81-99); Mean Platelet Volume 9.2 fL (7.4-10.4); Monocytes # 0.5 10^3/uL (0.2-0.9); Neutrophils % 78.6 %; Nucleated Red Blood Cells % 0 %; Platelet Count 191 10^3/cmm (130-400); Red Blood Count 2.74 10^6/uL (4.1-5.3); White Blood Count 7.1 10^3/uL (4.0-10.0)
[2021-06-13 05:40] LABS: Alanine Aminotransferase 8 U/L (0-33); Albumin Level 3.6 g/dL (3.5-5.2); Alkaline Phosphatase 67 IU/L (35-105); Anion Gap 12.9 (5-19); Aspartate Amino Transferase 16 U/L (0-32); Blood Urea Nitrogen 16 mg/dL (8-23); Calcium 8.4 mg/dL (8.5-10.5); Carbon Dioxide 23 mmol/L (22-29); Chloride 105 mmol/L (98-107); Globulin 2.6 g/dL (1.3-4.6); Glucose 145 mg/dL (65-115); Osmolality Calculated 288 mOsm/kg (285-295); Potassium 3.9 mmol/L (3.5-5.1); Sodium 137 mmol/L (136-145); Total Bilirubin 0.3 mg/dL (0.15-1.2); Total Protein 6.2 g/dL (6.6-8.7)
[2021-06-13] MEDS: dextrose 5%-lactated ringers 1,000 ML 125 ML IV (05:59)
[2021-06-13 07:33] VITALS: BP 147/75; PULSE 66; RESP 16; TEMP 36.8; O2SAT 96
--- NOTE | 2021-06-13 08:44 | PM.PN ---
Subjective Subjective: Postop day #1 status post IVC filter placement. Ms. Levine is in good spirits this morning. She has no complaints. Surgical dressing was removed. Insertion site is clean and dry without ecchymosis or evidence for fluid collection. Vitals/I&O/Wt Last Vital Signs Temp 98.3 F 06/13/21 07:33 Pulse 66 06/13/21 07:33 Resp 16 06/13/21 07:33 BP 147/75 06/13/21 07:33 Pulse Ox 96 06/13/21 07:33 06/12/21 06/13/21 06/13/21 22:59 06:59 14:59 Intake Total 1357.917 / 7219.257 3541 / 3890.000 Output Total 2800 / 2805 Balance 1352.917 / 1905.000 -820 / 1085.000 Physical Exam Extremity: NARRATIVE EXTREMITY EXAM: IVC insertion site in the right groin is clean and dry without evidence for ecchymosis, infection, drainage, or fluid collection. Urinary Catheter Management: Stanley: Cath Placed During This Visit: yes, but has since been removed by the nurse Reason for Continuing Indwelling Catheter: Other Urinary Catheter Date of Insertion: 06/09/21 Urinary Catheter Time of Insertion: 17:29 Date Urinary Catheter Removed: 06/10/21 Time Urinary Catheter Discontinued: 02:00 Data : 06/13/21 04:06 06/13/21 04:06 A&P Assessment and plan (1) Right leg DVT: POD #1 status post IVC filter placement. Recovering well. Status: Acute Attestations Medical Necessity Statement*: Right lower extremity DVT/POD #1 status post IVC filter placement Coding Level of Care Code Acute Press[employer] for [employer]ono Mejia Diagnoses Right leg DVT I82.401
--- NOTE | 2021-06-13 10:23 | P.DS_ITS ---
Discharge Providers Date of Admission: 06/09/21 16:59 Date of Discharge: June 12, 2021 Attending Provider at Admission: Armando Slater MD Attending Provider at Discharge: Armando Slater MD Primary Care Provider: Nils Gambino DO Diagnoses at Discharge Discharge Diagnosis (1) Bilateral hydronephrosis: Status: Acute (2) Hydroureteronephrosis: Status: Deleted (3) Right leg DVT: Status: Acute (4) Bilateral tubo-ovarian mass: Status: Acute (5) Acute kidney injury: Status: Acute Reason for Visit Reason for Visit: abnormal lab, sob Hospital Course Hospital Course This is a 76-year-old female, who presents to [facility] due to complaints of vaginal bleeding, and concerns for anemia Acute anemia, likely secondary to abnormal uterine bleeding, required 3 units PRBC, hemodynamically stable, likely secondary to endometrial carcinoma. Follow-up with primary care provider in 1 week recheck hemoglobin. If she were to have recurrent lightheadedness or dizziness or heavy vaginal bleeding go to emergency room. Recheck CBC in 1 week Bilateral ovarian masses, likely concerning for ovarian malignancy, follow-up with Dr. Baez Patient was admitted to [facility] found to have bilateral hydronephrosis with hydroureter secondary to obstruction by ovarian masses with KAT creatinine of 5.2, did not respond to IV fluids, status post bilateral ureteral stent placement by Dr. Gudino. Follow-up with Dr. Gudino as outpatient For acute renal failure likely secondary to as above, received IV fluids, then ureteral stent placement, creatinine on discharge 1.8. Discharged with instructions to drink plenty of electrolyte balance fluids. Recheck renal function in 1 week Patient was also found to have a right lower extremity DVT, it was a proximal right GSV extending to the confluence of the common femoral vein, extend below the level of the knee. Does manage like a DVT. Due to anemia she cannot tolerate anticoagulation. Patient had an IVC filter by Dr. Carrasco, follow-up with Dr. Carrasco in 1 year for removal Physical Exam Const: COMMON NORMALS: no acute distress and patient oriented x3 Resp: COMMON NORMALS: normal respiratory effort, No retractions, No use of accessory muscles and clear to auscultation bilaterally AUSCULTATION: clear to auscultation bilaterally Cardio: COMMON NORMALS: regular rate, regular rhythm, S1 normal heart sound present and S2 normal heart sound present RATE: regular rate RHYTHM: regular rhythm HEART SOUNDS: S1 normal heart sound present and S2 normal heart sound present GI: COMMON NORMALS: Normal to inspection, nondistended, normoactive bowel sounds present, Soft to palpation and non-tender PALPATION: Yes Soft to palpation Extremity: COMMON NORMALS: no pedal edema Neuro: COMMON NORMALS: patient oriented x3 Psych: COMMON NORMALS: mental status grossly normal Urinary Catheter Management: Stanley: Cath Placed During This Visit: yes, but has since been removed by the nurse Reason for Continuing Indwelling Catheter: Other Urinary Catheter Date of Insertion: 06/09/21 Urinary Catheter Time of Insertion: 17:29 Date Urinary Catheter Removed: 06/10/21 Time Urinary Catheter Discontinued: 02:00 Discharge Data Studies Completed and Pending Completed Studies During Hospitalization Category Date Time Status CT abdomen pelvis wo con [id number] Routine Cat Scan 06/09/21 19:[address] chest wo con [id number] Stat Cat Scan 06/12/21 10:23 Completed XR chest 2V* [id number] Routine Exams 06/10/21 09:36 Completed Pathology: Surgical [PTH] Routine Pth 06/11/21 10:26 [place] [id number] Routine Ultrasound 06/10/21 09:38 Completed US renal BI* [id number] Stat Ultrasound 06/09/21 16:26 Completed Pending at discharge Category Date Time Status C-arm Fluoroscopy 20231 Routine Exams 06/12/21 15:35 Taken ES surgery / GI images Routine Exams 06/11/21 08:51 Taken Complete Blood Count w/Auto AM LABS Lab 06/13/21 04:00 Ordered Complete Blood Count w/Auto AM LABS Lab 06/14/21 04:00 Ordered Comprehensive Metabolic Panel AM LABS Lab 06/13/21 04:00 Ordered Comprehensive Metabolic Panel AM LABS Lab 06/14/21 04:00 Ordered Hemagram Timed Lab 06/12/21 05:00 Uncollected Leukocyte Reduced RBC Stat Lab 06/09/21 17:09 Results Type and Screen Stat Lab 06/09/21 17:09 Results Radiology Impressions Renal Ultrasound 06/09/21 16:26 IMPRESSION: Moderate to severe bilateral hydronephrosis and hydroureter without obstructing lesion seen. Abdomen/Pelvis CT 06/09/21 19:50 IMPRESSION: 1. Negative for focal acute inflammatory process in the abdomen or pelvis. 2. Moderate bilateral hydronephrosis with suspected hydroureter without focal obstructing lesion. 3. Right right adnexal 7 cm and left adnexal 5.2 cm solid-appearing mass lesions appear new compared to prior exam without surrounding inflammation, consider further evaluation with ultrasound and/or contrast infused CT. 4. Diverticulosis without diverticulitis. 5. Supraumbilical ventral abdominal hernia containing omentum without bowel inflammation. 6. L1 vertebral body chronic appearing compression fracture. 7. Emphysematous changes. 8. Cholecystectomy. 9. Stanley catheter in the urinary bladder. Chest X-Ray 06/10/21 09:36 IMPRESSION: 1. Stable cardiomegaly. 2. Bilateral perihilar and RIGHT lower lobe interstitial infiltrates similar to 2018 can be seen with mild interstitial pneumonia or interstitial edema. 3. No focal consolidation or pleural fluid. 4. Chronic compression fractures thoracolumbar junction unchanged the prior CT July 03, [address] 06/12/21 10:23 IMPRESSION: 1. No evidence of intraparenchymal pulmonary metastatic disease. 2. No acute pulmonary infiltrates. No focal pneumonia or pleural fluid. 3. No mediastinal or hilar lymphadenopathy. 4. Dorsal spinal stimulator. 5. No other significant changes compared to prior examinations. Laboratory Results WBC 8.8 10^3/uL (4.0-10.0) 06/12/21 08:45 Corrected WBC Cancelled 06/11/21 03:31 RBC 2.36 10^6/uL (4.1-5.3) L 06/12/21 08:45 Hgb 7.1 g/dL (11.5-15.3) L 06/12/21 08:45 Hct 24.1 % (37.0-47.0) L 06/12/21 08:45 MCV 102.1 fl (81-99) H 06/12/21 08:45 MCH 30.1 pg (28.0-34.0) 06/12/21 08:45 MCHC 29.5 g/dL (30.0-36.0) L 06/12/21 08:45 RDW 15.1 % (12.1-15.1) 06/12/21 08:45 Plt Count 183 10^3/cmm (130-400) 06/12/21 08:45 MPV 9.1 fL (7.4-10.4) 06/12/21 08:45 Gran % Cancelled 06/11/21 03:31 Neut % (Auto) 73.0 % 06/12/21 08:45 Lymph % (Auto) 16.9 % 06/12/21 08:45 Powell % (Auto) 9.4 % 06/12/21 08:45 Eos % (Auto) 0.1 % 06/12/21 08:45 Baso % (Auto) 0.1 % 06/12/21 08:45 Neut # (Auto) 6.42 10^3/uL (1.8-7.7) 06/12/21 08:45 Lymph # (Auto) 1.5 10^3/uL (0.8-4.8) 06/12/21 08:45 Powell # (Auto) 0.8 10^3/uL (0.2-0.9) 06/12/21 08:45 Eos # (Auto) 0.0 10^3/uL (0.0-0.8) 06/12/21 08:45 Baso # (Auto) 0.0 10^3/uL (0.0-0.1) 06/12/21 08:45 Absolute Gran (auto) Cancelled 06/11/21 03:31 Nucleated RBC % (auto) 0 % 06/12/21 08:45 Nucleated RBCs # 0.0 /100WBC 06/12/21 08:45 Sodium 143 mmol/L (136-145) 06/12/21 08:45 Potassium 4.1 mmol/L (3.5-5.1) 06/12/21 08:45 Chloride 109 mmol/L (98-107) H 06/12/21 08:45 Carbon Dioxide 23 mmol/L (22-29) 06/12/21 08:45 Anion Gap 15.1 (5-19) 06/12/21 08:45 BUN 19 mg/dL (8-23) 06/12/21 08:45 Creatinine 1.8 mg/dL (0.5-0.9) H 06/12/21 08:45 GFR Calculation Not Reportable 06/12/21 08:45 Glucose 128 mg/dL (65-115) H 06/12/21 08:45 POC Glucose 146 mg/dL (70-110) H 06/12/21 06:14 Calculated Osmolality 300 mOsm/kg (285-295) H 06/12/21 08:45 Uric Acid 9.9 mg/dL (2.4-5.7) H 06/10/21 07:47 Calcium 8.3 mg/dL (8.5-10.5) L 06/12/21 08:45 Phosphorus 3.3 mg/dL (2.5-4.5) 06/12/21 08:45 Magnesium 1.6 mg/dL (1.7-2.3) L 06/12/21 08:45 Total Bilirubin 0.3 mg/dL (0.15-1.2) 06/12/21 08:45 AST 13 U/L (0-32) 06/12/21 08:45 ALT 9 U/L (0-33) 06/12/21 08:45 Alkaline Phosphatase 61 IU/L (35-105) 06/12/21 08:45 Creatine Kinase 78 U/L (26-192) 06/09/21 17:09 NT-Pro-B Natriuret Pep 1734 pg/mL (0-450) H 06/09/21 17:09 Total Protein 6.1 g/dL (6.6-8.7) L 06/12/21 08:45 Albumin 3.4 g/dL (3.5-5.2) L 06/12/21 08:45 Globulin 2.7 g/dL (1.3-4.6) 06/12/21 08:45 25-OH Vitamin D Total 21 ng/mL (30-100) L 06/11/21 03:31 TSH 2.71 uIU/mL (0.27-4.20) 06/09/21 17:09 PTH Intact 201.8 pg/mL (15-65) H 06/11/21 06:02 Calcium (PTH Intact) 8.1 mg/dL (8.5-10.5) L 06/11/21 06:02 Urine Color Yellow (Yellow) 06/09/21 17:32 Urine Appearance Cloudy (CLEAR) 06/09/21 17:32 Urine pH 6.5 (5-7) 06/09/21 17:32 Ur Specific [place] 1.010 (1.005-1.030) 06/09/21 17:32 Urine Protein Neg (Negative) 06/09/21 17:32 Urine Glucose (UA) Norm (Normal) 06/09/21 17:32 Urine Ketones Negative (Negative) 06/09/21 17:32 Urine Blood 3+ (Negative) H 06/09/21 17:32 Urine Nitrate Negative (Negative) 06/09/21 17:32 Urine Bilirubin Neg (Negative) 06/09/21 17:32 Urine Urobilinogen Norm mg/dL (Negative) 06/09/21 17:32 Ur Leukocyte Esterase 2+ (Negative) H 06/09/21 17:32 Ur Random Sodium 92 mmol/L 06/10/21 17:54 Ur Random Potassium 31 mmol/L 06/10/21 17:54 Ur Random Chloride 84 mmol/L 06/10/21 17:54 Hepatitis C Antibody Non-reactive (Nonreactive) 06/09/21 17:09 Blood Type O Negative 06/09/21 17:09 Rho(D) Type Negative 06/09/21 17:09 Antibody Screen Negative 06/09/21 17:09 Crossmatch See Detail 06/09/21 17:09 Vitals Last Vital Signs Temp 97.8 F 06/12/21 17:10 Pulse 72 06/12/21 17:10 Resp 15 06/12/21 17:10 BP 174/81 06/12/21 17:10 Pulse Ox 95 06/12/21 17:10 Discharge Plan Discharge Patient Disposition: Home Condition: Stable Prescriptions: Continued acetaminophen [Tylenol Arthritis Pain] 650 mg tablet extended release 1,300 mg PO .daily 0RF Label Comments: 3 tablets in the morning loratadine [Claritin] 10 mg Tablet 10 mg PO DAILY PRN (Reason: Allergy Symptoms) 0RF Discharge Orders: Discharge Order (Routine); Ordered 06/12/21 Ordered By: Armando Slater Referrals: Matt Victoria MD [Physician] - 7-10 days Enrrique Baez MD [Referring] - 1-3 days Taras Gudino MD [Physician] - 2 weeks Nils Gambino DO [Primary Care Provider] - Discharge Diet: Regular Discharge Activity: Resume usual activity Patient Instructions: Opioid Safety Activity Restrictions/Additional Instructions: -Continue to ambulate -If you have worsening lightheadedness or dizziness go to the emergency room -Please hydrate well drink plenty electrolyte balance fluids -Continue to monitor for worsening right lower extremity pain -If you have worsening vaginal bleeding go to emergency room -Follow-up with Dr. Gudino, Dr. Victoria, Dr. Baez -Follow-up with primary care provider in 1 week to recheck hemoglobin and kidney function Discharge Attestations Time Spent in Discharge Care*: less than 30 min Quality Metrics Clinical Quality Measures [ No reported AMI, CVA or VTE this stay] Coding Level of Care Code Acute g [facility] note Diagnoses Bilateral hydronephrosis N13.30 Hydroureteronephrosis N13.30 Right leg DVT I82.401 Bilateral tubo-ovarian mass N83.8 Acute kidney injury N17.9
--- NOTE | 2021-06-13 10:30 | PC.NURSE ---
Discharge Note Patient discharged to private vehicle via wheelchair accompanied by daughter. Discharge instructions reviewed with patient, verbalized understanding. No prescribed medications to review with pt. Belongings taken home with patient.
[2021-06-13 10:35] VITALS: BP 147/75; PULSE 66; RESP 16; TEMP 36.8; O2SAT 96
== END 2021-06-13 10:00 | disposition home or self-care (01) | DRG 660 ==
LOC: ER 17:46 → MEDSURG 17:54
PROVIDERS: Internal Medicine Nephrology; Obstetrics & Gynecology; Thoracic Surgery (Cardiothoracic Vascular Surgery); Urology; Admitting Provider Family Medicine; Emergency Provider Family Medicine; PCP Family Medicine; Visit Provider Family Medicine
PROC: 0UDB8ZZ Extraction of Endometrium, Via Natural or Artificial Opening Endoscopic (ICD-10-PCS; CPT 58558; principal; 2021-06-11 07:50)
PROC: 0UDB8ZX Extraction of Endometrium, Via Natural or Artificial Opening Endoscopic, Diagnostic (ICD-10-PCS; CPT 58120; 2021-06-11 07:50)
PROC: 0TJB8ZZ Inspection of Bladder, Via Natural or Artificial Opening Endoscopic (ICD-10-PCS; CPT 52000; 2021-06-11 07:50)
PROC: 0T788DZ Dilation of Bilateral Ureters with Intraluminal Device, Via Natural or Artificial Opening Endoscopic (ICD-10-PCS; CPT 50605; 2021-06-11 07:50)
PROC: 0T788DZ Dilation of Bilateral Ureters with Intraluminal Device, Via Natural or Artificial Opening Endoscopic (ICD-10-PCS; CPT 74420; 2021-06-11 07:50)
PROC: 06H03DZ Insertion of Intraluminal Device into Inferior Vena Cava, Percutaneous Approach (ICD-10-PCS; CPT 37191; principal; 2021-06-12 16:00)
DX: N13.1 Hydronephrosis with ureteral stricture, not elsewhere classified (principal); D62 Acute posthemorrhagic anemia; I82.811 Embolism and thrombosis of superficial veins of right lower extremity; Z68.42 Body mass index [BMI] 45.0-49.9, adult; N95.0 Postmenopausal bleeding; N17.9 Acute kidney failure, unspecified; E87.5 Hyperkalemia; Z96.653 Presence of artificial knee joint, bilateral; Z87.891 Personal history of nicotine dependence; Z85.72 Personal history of non-Hodgkin lymphomas; Z92.21 Personal history of antineoplastic chemotherapy; Z96.82 Presence of neurostimulator; Z90.49 Acquired absence of other specified parts of digestive tract; N83.9 Noninflammatory disorder of ovary, fallopian tube and broad ligament, unspecified; E66.01 Morbid (severe) obesity due to excess calories
CPT/HCPCS: 36415; 36416; 36430; 51702; 71046; 71250; 74018; 74176; 76000; 76770; 76857; 80048; 80053; 81001; 81003; 82306; 82310; 82436; 82550; 82962; 83735; 83880; 83970; 84100; 84133; 84300; 84443; 84550; 85025; 85610; 86803; 86850; 86900; 86920; 87086; 87635; 88305; 88341; 88342; 88361; 88374; 93005; 93970; 94664; 96360; 99285; C1880; C2625; C9113; J0690; J1100; J1200; J2405; J2704; J2710; J3010; J3475; J3490; J7030; J7040; P9016; Q3014

== ENCOUNTER → 2021-06-09 | Day surgery (SDC) | payer MEDICARE, OTHER, SELFPAY ==
[2021-06-09 13:25] VITALS: BMI 47.8
--- NOTE | 2021-06-09 13:40 | ECG_ITS ---
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 Measurements Intervals [place] Rate: 86 P: 253 HI: 313 QRS: -22 QRSD: 91 T: 18 QT: 378 QTc: 454 Interpretive Statements Sinus rhythm LOW QRS VOLTAGE IN PRECORDIAL LEADS [QRS DEFLECTION < 1.0 mV IN CHEST LEADS] POSSIBLE ANTERIOR MYOCARDIAL INFARCTION , PROBABLY OLD [30 ms Q WAVE IN V3/V4, OR R < 0.2 mV IN V4] ABNORMAL RHYTHM ECG Compared to ECG 03/15/2017 16:12:21 Low QRS voltage now present Sinus tachycardia no longer present Left-axis deviation no longer present Myocardial infarct finding still present Electronically Signed On 06-10-2021 9:25:10 CDT by Mickey Fabian M.D. [id number]
--- NOTE | 2021-06-09 14:17 | ANES.PREANE2 ---
Pre-Anesthetic Assessment Height/Weight: Height 1.63 m Weight 126.5 kg Preop Diagnosis: Port-A-Cath in place Operation Date: 06/11/21 07:00 Proposed Procedures p Hysteroscopy w/ Myosure 25797/n95.0/n84.1(Not Applicable) - Matt Victoria MD s Dilation And Curettage (D&C)(Not Applicable) - Matt Victoria MD Familial anesthetic complications: None Social No alcohol and No tobacco Exam alert, oriented x 3, clear to auscultation bilaterally and regular rate & rhythm Airway Mallampati: Class II Dentition: false Pulmonary Sleep Apnea CV/HEM None reported None reported Hepatic None reported GI None reported Musc/skel Lower Back Pain Neuropsych Neuropathy Anesthetic Plan ASA status: 2 Anesthesia: General Risk of > 500 ml blood loss (7ml/kg in children): No Medications/Allergies Home Medications Medication Instructions Recorded Confirmed Last Taken Type loratadine 10 mg tablet (Claritin) 10 mg PO DAILY PRN 02/14/21 06/09/21 Unknown History acetaminophen 650 mg 1,300 mg PO .daily tab 05/19/21 06/09/21 Unknown History tablet,extended release (Tylenol Arthritis Pain) Allergies Allergy/AdvReac Type Severity Reaction Status Date / Time No Known Allergies Allergy Verified 06/09/21 13:21 [facility] Anesthesia Medical History (Updated 06/09/21 @ 10:37 by Matt Victoria MD) Port-A-Cath in place Surgical History (Updated 05/19/21 @ 15:39 by Aida Bone, RN) History of left knee replacement Family History (Updated 05/19/21 @ 15:32 by Aida Bone, RN) Mother Hypertension Father Colon cancer 72 Denies family history of Ovarian cancer Diabetes Clotting disorder Heart disease Hyperlipidemia Breast cancer Anesthesia complication Bleeding disorder Uterine cancer Thyroid condition Stroke Social History Smoking and tobacco status: former smoker Second hand smoke exposure: No Alcohol intake: never Adopted: No Caregiver/support person: Yes Lives independently: Yes Household members: significant other Housing: House Marital status: / service: No Current occupational status: retired Current occupational exposures/hazards: No Pets and animals: Yes History of recent travel: No Leisure activites: exercise Sexually active: No Current gender identity: Female Cheli/Anabaptism: Islam Data Anesthesia : 06/09/21 14:00 06/09/21 14:00 Cardiac Studies: No Data to Display
[2021-06-09 14:18] LABS: Basophils % 0.6 %; Eosinophils # 0.3 10^3/uL (0.0-0.8); Eosinophils % 3.8 %; Hematocrit 21.1 % (37.0-47.0); Lymphocytes # 1.8 10^3/uL (0.8-4.8); Lymphocytes % 25.9 %; Mean Corpuscular HGB Conc 28.9 g/dL (30.0-36.0); Mean Corpuscular Hemoglobin 29.6 pg (28.0-34.0); Mean Corpuscular Volume 102.4 fl (81-99); Monocytes # 0.6 10^3/uL (0.2-0.9); Monocytes % 7.9 %; Neutrophils # 4.23 10^3/uL (1.8-7.7); Neutrophils % 61.1 %; Nucleated Red Blood Cells % 0 %; Platelet Count 220 10^3/cmm (130-400); Red Blood Count 2.06 10^6/uL (4.1-5.3); Red Cell Distribution Width 14.7 % (12.1-15.1); White Blood Count 6.9 10^3/uL (4.0-10.0)
[2021-06-09 14:48] LABS: INR 0.89 (0.8-1.2)
[2021-06-09 14:51] LABS: Hemoglobin 6.1 g/dL (11.5-15.3)
[2021-06-09 14:59] LABS: Alanine Aminotransferase 11 U/L (0-33); Albumin Level 3.8 g/dL (3.5-5.2); Alkaline Phosphatase 75 IU/L (35-105); Anion Gap 19.4 (5-19); Aspartate Amino Transferase 16 U/L (0-32); Blood Urea Nitrogen 40 mg/dL (8-23); Calcium 8.4 mg/dL (8.5-10.5); Carbon Dioxide 23 mmol/L (22-29); Chloride 106 mmol/L (98-107); Globulin 2.1 g/dL (1.3-4.6); Glucose 97 mg/dL (65-115); Osmolality Calculated 306 mOsm/kg (285-295); Potassium 5.4 mmol/L (3.5-5.1); Sodium 143 mmol/L (136-145); Total Bilirubin 0.2 mg/dL (0.15-1.2); Total Protein 5.9 g/dL (6.6-8.7)
[2021-06-09 16:12] LABS: Bilirubin Urine Neg (Negative); Blood Urine 2+ (Negative); Glucose Urine UA Norm (Normal); Ketones Urine Negative (Negative); Leukocyte Esterase Urine 2+ (Negative); Nitrate Urine Negative (Negative); Protein Urine Trace (Negative); Urine Appearance Cloudy (CLEAR); Urine Color Yellow (Yellow); Urobilinogen Urine Norm (Negative); pH Urine 7 (5-7)
[2021-06-09 16:13] LABS: Add Urine Microscopic? YES
[2021-06-09 16:15] LABS: Add Urine Culture? Yes; Bacteria Urine 1+ /hpf; WBC Urine 25-40 /hpf (0-5)
[2021-06-16 09:52] LABS: Miscellaneous Test See Scanned Lab Rpt
[2021-07-23 09:04] LABS: Miscellaneous Test See Scanned Lab Rpt
== END ==
PROVIDERS: PCP Family Medicine; Visit Provider Obstetrics & Gynecology
DX: Z01.818 Encounter for other preprocedural examination (principal); G47.30 Sleep apnea, unspecified; Z87.891 Personal history of nicotine dependence
CPT/HCPCS: 36415; 80053; 81001; 85025; 85610; 86850; 86900; 86920; 87086; 88341; 88342; 88361; 88374; 93005; J2405; J2704; J2710; J3010; J3490

== ENCOUNTER → 2021-06-16 13:50 | Outpatient (BNVA) | payer MEDICARE, OTHER, SELFPAY | PROVIDERS: PCP Family Medicine; Visit Provider Obstetrics & Gynecology | DX: D62 Acute posthemorrhagic anemia (principal) | CPT/HCPCS: 85025 ==

== ENCOUNTER → 2021-06-30 15:39 | Outpatient (BNVA) | payer MEDICARE, OTHER, SELFPAY | PROVIDERS: PCP Family Medicine; Visit Provider Urology | DX: N13.30 Unspecified hydronephrosis (principal); N13.5 Crossing vessel and stricture of ureter without hydronephrosis; Z96.82 Presence of neurostimulator | CPT/HCPCS: 81003 ==

== ENCOUNTER 2021-07-15 18:34 | Emergency (ER) | payer MEDICARE, OTHER, SELFPAY ==
[2021-07-15 18:58] VITALS: BP 132/72; PULSE 111; RESP 20; TEMP 36; O2SAT 92
--- NOTE | 2021-07-15 19:58 | W.ED.WEAKNES ---
HPI - Weakness General: Chief complaint: Weakness Stated complaint: Taking Chemo Dehydrated Time Seen by Provider: 07/15/21 19:52 Source: patient Mode of arrival: ambulatory Limitations: no limitations History of Present Illness: 76-year-old female who has history of uterine cancer just started chemotherapy last week states that since her first dose she has had diarrhea and states that she feels very fatigued and feel like she is dehydrated from all the diarrhea denies any pain denies any fevers denies any vomiting. Denies any worsening proving factors. Associated symptoms: Denies chest pain, dysuria, easy bruising or headache(s) Review of Systems Const: Reports: fatigue and malaise Eyes: Denies: blurry vision or eye discomfort ENMT: Denies: throat pain or dental pain Card: Denies: chest pain Resp: Denies: dyspnea GI: Reports: diarrhea : Denies: dysuria Musc: Denies: neck pain or back pain Skin/Breast: Denies: rash Neuro: Denies: headache(s) Psych: Denies: depression Wally/Lymph: Denies: easy bruising All/Imm: Denies: urticaria PFSH ED PFSH: Medical History Diffuse large B cell lymphoma Port-A-Cath in place Status post insertion of nerve stimulator Surgical History H/O cataract extraction bilateral eyes H/O tubal ligation History of colon resection History of left knee replacement History of removal of Port-a-Cath History of total right knee replacement S/P cholecystectomy Family History Mother , at age Hypertension Cancer pancreatic Father , at age 72 Colon cancer 72 Denies family history of Ovarian cancer Diabetes Clotting disorder Heart disease Hyperlipidemia Breast cancer Anesthesia complication Bleeding disorder Uterine cancer Thyroid condition Stroke Social History Smoking and tobacco status: former smoker Second hand smoke exposure: No Alcohol intake: never Adopted: No Caregiver/support person: Yes Lives independently: Yes Household members: significant other Housing: House Marital status: / service: No Current occupational status: retired Current occupational exposures/hazards: No Pets and animals: Yes History of recent travel: No Leisure activites: exercise Sexually active: No Current gender identity: Female Cheli/[employer] Physical Exam Const: COMMON NORMALS: no acute distress, patient oriented x3 and healthy appearing HENMT: COMMON NORMALS: normocephalic and atraumatic HEAD & SCALP: normocephalic and atraumatic Eye: COMMON NORMALS: Equal, round and reactive pupils present and EOMs intact bilaterally PUPIL: Yes Equal, round and reactive pupils present Neck/C-Spine: COMMON NORMALS: full ROM and supple Chest: COMMONS NORMALS: normal inspection of the chest and normal palpation of entire chest wall Resp: COMMON NORMALS: normal respiratory effort, No retractions, No use of accessory muscles and clear to auscultation bilaterally AUSCULTATION: clear to auscultation bilaterally Cardio: COMMON NORMALS: regular rate, regular rhythm and No murmurs present (Cardio) RATE: regular rate RHYTHM: regular rhythm GI: COMMON NORMALS: Normal to inspection, nondistended, normoactive bowel sounds present, Soft to palpation, non-tender and no masses PALPATION: Yes Soft to palpation Extremity: COMMON NORMALS: normal to inspection and full ROM Neuro: COMMON NORMALS: patient oriented x3, moves all extremities and no focal motor deficits Psych: COMMON NORMALS: mental status grossly normal, Normal thought process present and cooperative THOUGHT PROCESS: Normal thought process present Skin: COMMON NORMALS: no rashes or lesions noted and no wounds GENERAL SKIN EXAM: no rashes or lesions noted Course Vital Signs: Vital signs: Vital Signs Temperature 96.8 F L 07/15/21 18:58 Pulse Rate 111 H 07/15/21 18:58 Respiratory Rate 20 H 07/15/21 18:58 Blood Pressure 132/72 07/15/21 18:58 Pulse Oximetry 92 07/15/21 18:58 MDM - Weakness Medical Decision Making Patient presents here as dehydration likely from her diarrhea from her chemo she does have a neutropenia but no fever she feels much improved here after IV fluids she is to follow-up with her oncologist this week as scheduled return if worsening she understands agrees to plan. Lab Data : 07/15/21 20:35 07/15/21 20:35 Laboratory Results WBC 1.3 10^3/uL (4.0-10.0) L 07/15/21 20:35 RBC 3.14 10^6/uL (4.1-5.3) L 07/15/21 20:35 Hgb 8.8 g/dL (11.5-15.3) L 07/15/21 20: Hct 28.7 % (37.0-47.0) L 07/15/21 20: MCV 91.4 fl (81-99) 07/15/21 20: MCH 28.0 pg (28.0-34.0) 07/15/21 20: MCHC 30.7 g/dL (30.0-36.0) 07/15/21 20: RDW 14.6 % (12.1-15.1) 07/15/21 20: Plt Count 80 10^3/cmm (130-400) L 07/15/21 20: MPV 10.5 fL (7.4-10.4) H 07/15/21 20:35 Lymph % (Auto) Not Reportable 07/15/21 20: Cit[place] % (Auto) Not Reportable 07/15/21 20:35 Neut # (Auto) Bow Maker Custom 07/15/21 20:35 Lymph # (Auto) Not Reportable 07/15/21 20:35 [place] # (Auto) Not Reportable 07/15/21 20:35 Total Counted 100 (0-100) 07/15/21 20: Atypical Lymphs % 0.0 % (0-5) 07/15/21 20:35 Absolute Neutrophils 0.5 10^3/cmm (1.4-6.5) L* 07/15/21 20: Segmented Neutrophils 38 % 07/15/21 20:35 Abs Segm Neuts (Man) 0.5 10/cmm (1.6-7.1) L 07/15/21 20:35 Band Neutrophils 0.0 % 07/15/21 20:35 Abs Band Neuts (Man) 0.0 10^3/cmm (0.0-1.2) 07/15/21 20:35 Absolute Lymphocytes 0.6 10^3/cmm (1.2-3.4) L 07/15/21 20:35 Lymphocytes (Manual) 43 % 07/15/21 20:35 Monocytes (Manual) 13.0 % 07/15/21 20:35 Absolute Monocytes 0.2 10^3/cmm (0.1-0.6) 07/15/21 20:35 Eosinophils (Manual) 6 % 07/15/21 20:35 Absolute Eosinophils 0.0 10^3/cmm (0.0-0.7) 07/15/21 20:35 Basophils (Manual) 0.0 % 07/15/21 20:35 Absolute Basophils 0.0 10^3/cmm (0.0-0.2) 07/15/21 20:35 Platelet Estimate Decreased (Normal) L 07/15/21 20:35 Sodium 131 mmol/L (136-145) L 07/15/21 20:35 Potassium 4.1 mmol/L (3.5-5.1) 07/15/21 20:35 Chloride 96 mmol/L (98-107) L 07/15/21 20:35 Carbon Dioxide 21 mmol/L (22-29) L 07/15/21 20:35 Anion Gap 18.1 (5-19) 07/15/21 20:35 BUN 18 mg/dL (8-23) 07/15/21 20:35 Creatinine 0.8 mg/dL (0.5-0.9) 07/15/21 20:35 GFR Calculation Not Reportable 07/15/21 20: Glucose 128 mg/dL (65-115) H 07/15/21 20:35 Calculated Osmolality 276 mOsm/kg (285-295) L 07/15/21 20:35 Calcium 8.5 mg/dL (8.5-10.5) 07/15/21 20:35 Total Bilirubin 0.5 mg/dL (0.15-1.2) 07/15/21 20:35 AST 25 U/L (0-32) 07/15/21 20:35 ALT 17 U/L (0-33) 07/15/21 20:35 Alkaline Phosphatase 73 IU/L (35-105) 07/15/21 20:35 Total Protein 6.7 g/dL (6.6-8.7) 07/15/21 20:35 Albumin 3.7 g/dL (3.5-5.2) 07/15/21 20:35 Globulin 3.0 g/dL (1.3-4.6) 07/15/21 20:35 Lipase 12 U/L (13-60) L 07/15/21 20:35 Discharge Plan Discharge Patient Disposition: Home Clinical Impression: Dehydration, Diarrhea Condition: Stable Prescriptions: New ondansetron 4 mg tablet,disintegrating 4 mg PO Q6H PRN (Reason: nausea and vomiting) Qty: 14 0RF No Action loratadine [Claritin] 10 mg Tablet 10 mg PO DAILY PRN (Reason: Allergy Symptoms) 0RF Sullivan 5-325 mg Tablet 1 tab PO Q4H PRN (Reason: Pain) 0RF prochlorperazine maleate 10 mg Tablet 10 mg PO Q6H PRN (Reason: Nausea) 0RF famotidine 20 mg Tablet 20 mg PO DAILY 0RF dexamethasone 4 mg Tablet See Rx Instructions .ROUTE .COMPLEX 0RF Rx Instructions: take 5 tabs in am of chemotherapy Discharge Orders: Discharge ED (Routine); Ordered 07/15/21 Ordered By: Anjali Fermin Referrals: Nils Gambino, DO [Primary Care Provider] - 1-3 days Discharge Diet: Advance as tolerated Discharge Activity: Resume usual activity Patient Instructions: Dehydration (ED) Coding Level of Care Code ED Field Mechanic/Site Lead for Chg Fwd Exam Comprehensive
[2021-07-15] MEDS: sodium chloride 0.9% 1,000 ML 999 ML IV ×2 (20:38→20:39)
[2021-07-15 20:58] LABS: Hematocrit 28.7 % (37.0-47.0); Hemoglobin 8.8 g/dL (11.5-15.3); Mean Corpuscular HGB Conc 30.7 g/dL (30.0-36.0); Mean Corpuscular Volume 91.4 fl (81-99); Mean Platelet Volume 10.5 fL (7.4-10.4); Platelet Count 80 10^3/cmm (130-400); Red Blood Count 3.14 10^6/uL (4.1-5.3); Red Cell Distribution Width 14.6 % (12.1-15.1); White Blood Count 1.3 10^3/uL (4.0-10.0)
[2021-07-15 21:16] LABS: Alanine Aminotransferase 17 U/L (0-33); Albumin Level 3.7 g/dL (3.5-5.2); Alkaline Phosphatase 73 IU/L (35-105); Anion Gap 18.1 (5-19); Aspartate Amino Transferase 25 U/L (0-32); Blood Urea Nitrogen 18 mg/dL (8-23); Calcium 8.5 mg/dL (8.5-10.5); Carbon Dioxide 21 mmol/L (22-29); Chloride 96 mmol/L (98-107); Glucose 128 mg/dL (65-115); Lipase 12 U/L (13-60); Osmolality Calculated 276 mOsm/kg (285-295); Potassium 4.1 mmol/L (3.5-5.1); Sodium 131 mmol/L (136-145); Total Bilirubin 0.5 mg/dL (0.15-1.2); Total Protein 6.7 g/dL (6.6-8.7)
[2021-07-15 21:35] LABS: Absolute Segmented Neutrophil 0.5 10/cmm (1.6-7.1); Eosinophils 6 %; Lymphocytes 43 %; Lymphocytes Absolute 0.6 10^3/cmm (1.2-3.4); Monocytes Absolute 0.2 10^3/cmm (0.1-0.6); Segmented Neutrophils 38 %; Total Cells Counted 100 (0-100)
[2021-07-15 21:36] LABS: Platelet Estimate Decreased (Normal)
[2021-07-15 21:38] LABS: Absolute Neutrophil 0.5 10^3/cmm (1.4-6.5)
--- NOTE | 2021-07-15 21:39 | PC.NURSE ---
Critical Lab absolute Neutropil count 0.5. Dr Fermin notified.
[2021-07-15 22:42] VITALS: BP 148/92; PULSE 87; RESP 16; O2SAT 97
== END 2021-07-15 22:35 | disposition home or self-care (01) ==
PROVIDERS: Emergency Provider Emergency Medicine; PCP Family Medicine
DX: E86.0 Dehydration (principal); R19.7 Diarrhea, unspecified; D70.9 Neutropenia, unspecified; C83.30 Diffuse large B-cell lymphoma, unspecified site
CPT/HCPCS: 80053; 83690; 85007; 85025; 96360; 96361; 99284; J7030

== ENCOUNTER 2021-08-01 07:40 | Emergency (ER) | payer MEDICARE, OTHER, SELFPAY ==
[2021-08-01 07:45] VITALS: BP 133/76; PULSE 94; RESP 16; TEMP 36.7; O2SAT 94; BMI 40.1
--- NOTE | 2021-08-01 08:03 | W.ED.GENADLT ---
HPI - General Adult General: Chief complaint: General Medical Stated complaint: Dehydrated Time Seen by Provider: 08/01/21 07:53 Source: patient and family Mode of arrival: ambulatory Limitations: no limitations History of Present Illness: This patient here because she is concerned that she might be dehydrated. She had her second round of chemotherapy this Wednesday and states that she has not had much of an appetite and does not like the taste of water or other fluids although has been taking ICN. She states she feels weak and dried out and is here in the emergency department because she thinks she might need fluids. She was told that this may be a potential issue on Wednesday. She had a similar occurrence with her first round of chemotherapy 3 weeks ago. She currently has ovarian cancer that is being treated by gynecological oncology as well as oncology. She denies any fevers or chills nausea vomiting diarrhea or other constitutional complaints at this time other than noted above. Associated symptoms: Reports no associated symptoms and nausea; Deny chest pain, dyspnea, headache(s), rash, palpitations or vomiting Review of Systems Const: Reports: change in appetite; Denies: fever(s) or chills Eyes: Denies: change in vision ENMT: Denies: throat pain or odynophagia Card: Denies: chest pain, palpitations, swelling of feet/ankles or dyspnea on exertion Resp: Denies: dyspnea, productive cough, non-productive cough or wheezing GI: Reports: nausea; Denies: vomiting, diarrhea or GI cramping : Reports: oliguria; Denies: flank pain, difficulty voiding or dysuria Musc: Denies: neck pain, back pain or extremity pain Skin/Breast: Denies: rash Neuro: Denies: headache(s), numbness in extremities or weakness in extremities Endo: Denies: polyuria Wally/Lymph: Denies: easy bruising or easy bleeding PFSH ED PFSH: Medical History Diffuse large B cell lymphoma Port-A-Cath in place Status post insertion of nerve stimulator Surgical History H/O cataract extraction bilateral eyes H/O tubal ligation History of colon resection History of left knee replacement History of removal of Port-a-Cath History of total right knee replacement S/P cholecystectomy Family History Mother , at age Hypertension Cancer pancreatic Father , at age 72 Colon cancer 72 Denies family history of Ovarian cancer Diabetes Clotting disorder Heart disease Hyperlipidemia Breast cancer Anesthesia complication Bleeding disorder Uterine cancer Thyroid condition Stroke Social History Smoking and tobacco status: former smoker Second hand smoke exposure: No Alcohol intake: never Adopted: No Caregiver/support person: Yes Lives independently: Yes Household members: significant other Housing: House Marital status: / service: No Current occupational status: retired Current occupational exposures/hazards: No Pets and animals: Yes History of recent travel: No Leisure activites: exercise Sexually active: No Current gender identity: Female Cheli/Hinduism: Caodaism Physical Exam Narrative: EXAM NARRATIVE: She is alert no acute distress makes good eye contact speech is goal-directed. Const: COMMON NORMALS: no acute distress, average body habitus, patient oriented x3 and alert GENERAL APPEARANCE: cooperative HENMT: COMMON NORMALS: normocephalic, Normal nasal mucous membranes and turbinates present and oropharynx normal HEAD & SCALP: normocephalic NOSE: Normal nasal mucous membranes and turbinates present OTHER: Dry mucous membranes without erythema. Eye: COMMON NORMALS: Equal, round and reactive pupils present, EOMs intact bilaterally and no scleral icterus PUPIL: Yes Equal, round and reactive pupils present Neck/C-Spine: COMMON NORMALS: full ROM and supple Lymph: LYMPHATIC: no lymphadenopathy noted Chest: COMMONS NORMALS: normal inspection of the chest Resp: COMMON NORMALS: normal respiratory effort, No retractions and clear to auscultation bilaterally AUSCULTATION: clear to auscultation bilaterally Cardio: COMMON NORMALS: regular rate, regular rhythm, No murmurs present (Cardio) and Peripheral pulses 2+ throughout RATE: regular rate RHYTHM: regular rhythm PERIPHERAL PULSES: Peripheral pulses 2+ throughout GI: COMMON NORMALS: Normal to inspection, nondistended, normoactive bowel sounds present, Soft to palpation and non-tender PALPATION: Yes Soft to palpation : COMMON NORMALS: Yes no CVA tenderness BLADDER/KIDNEY EXAM: Yes no CVA tenderness Back/Pelvis: COMMON NORMALS: no CVA tenderness, thoracic and lumbar spine normal to inspection and no thoracic nor lumbar tenderness Extremity: COMMON NORMALS: normal to inspection, full ROM, capillary refill normal, no calf tenderness and no pedal edema Neuro: COMMON NORMALS: patient oriented x3, moves all extremities, no focal motor deficits and no sensory deficits noted SENSORIUM/ORIENTATION: Yes alert CRANIAL NERVES: Yes CN normal except as noted Psych: COMMON NORMALS: mental status grossly normal Skin: COMMON NORMALS: no rashes or lesions noted, no jaundice and no petechiae GENERAL SKIN EXAM: no rashes or lesions noted Course Reevaluation(s): Reevaluation #1: Patient states she is feeling some better. She is willing to try some oral fluids. We will go ahead and give her an additional liter of fluids such that she produces urine. Her laboratories are consistent with prior laboratories and consistent with her ongoing chemotherapy. Time: 09:41 Reevaluation #2: Feeling better as time goes on. She is drinking fluids orally. We will allow the remainder of her IV fluids to infuse. She will be stable and suitable to be discharged and managed as an outpatient with return precautions. Also discussed her need to keep up with her nutrition and fluid intake. She acknowledged our discussion. Time: 10:28 Vital Signs: Vital signs: Vital Signs Temperature 98.0 F 08/01/21 07:45 Pulse Rate 94 08/01/21 07:45 Respiratory Rate 16 08/01/21 07:45 Blood Pressure 133/76 08/01/21 07:45 Pulse Oximetry 94 08/01/21 07:45 [facility] [place] - General Adult Medical Decision Making Patient in the middle of chemotherapy regimen who was subjectively and objectively gotten a bit dehydrated over the past few days after her most recent chemotherapeutic treatment. Her laboratories are reassuring her clinical examination is actually reassuring. No evidence of fevers or other concerning history or findings today. She was rehydrated and she was tolerating oral fluids. Ongoing nutrition was reviewed as well. She is stable to be discharged with close follow-up. Lab Data : 08/01/21 08:10 08/01/21 08:10 Laboratory Results WBC 4.9 10^3/uL (4.0-10.0) 08/01/21 08:10 RBC 2.52 10^6/uL (4.1-5.3) L 08/01/21 08:10 Hgb 7.2 g/dL (11.5-15.3) L 08/01/21 08:10 Hct 24.1 % (37.0-47.0) L 08/01/21 08:10 MCV 95.6 fl (81-99) 08/01/21 08:10 MCH 28.6 pg (28.0-34.0) 08/01/21 08:10 MCHC 29.9 g/dL (30.0-36.0) L 08/01/21 08:10 RDW 16.3 % (12.1-15.1) H 08/01/21 08:10 Plt Count 286 10^3/cmm (130-400) 08/01/21 08:10 MPV 9.6 fL (7.4-10.4) 08/01/21 08:10 Neut % (Auto) 61.6 % 08/01/21 08:10 Lymph % (Auto) 29.2 % 08/01/21 08:10 Riley % (Auto) 1.8 % 08/01/21 08:10 Eos % (Auto) 0.0 % 08/01/21 08:10 Baso % (Auto) 0.4 % 08/01/21 08:10 Neut # (Auto) 3.01 10^3/uL (1.8-7.7) 08/01/21 08:10 Lymph # (Auto) 1.4 10^3/uL (0.8-4.8) 08/01/21 08:10 Riley # (Auto) 0.1 10^3/uL (0.2-0.9) L 08/01/21 08:10 Eos # (Auto) 0.0 10^3/uL (0.0-0.8) 08/01/21 08:10 Baso # (Auto) 0.0 10^3/uL (0.0-0.1) 08/01/21 08:10 Nucleated RBC % (auto) 0 % 08/01/21 08:10 Nucleated RBCs # 0.0 /100WBC 08/01/21 08:10 Sodium 140 mmol/L (136-145) 08/01/21 08:10 Potassium 3.7 mmol/L (3.5-5.1) 08/01/21 08:10 Chloride 103 mmol/L (98-107) 08/01/21 08:10 Carbon Dioxide 25 mmol/L (22-29) 08/01/21 08:10 Anion Gap 15.7 (5-19) 08/01/21 08:10 BUN 17 mg/dL (8-23) 08/01/21 08:10 Creatinine 0.7 mg/dL (0.5-0.9) 08/01/21 08:10 GFR Calculation Not Reportable 08/01/21 08:10 Glucose 88 mg/dL (65-115) 08/01/21 08:10 Calculated Osmolality 291 mOsm/kg (285-295) 08/01/21 08:10 Calcium 8.2 mg/dL (8.5-10.5) L 08/01/21 08:10 Total Bilirubin 0.3 mg/dL (0.15-1.2) 08/01/21 08:10 AST 16 U/L (0-32) 08/01/21 08:10 ALT 10 U/L (0-33) 08/01/21 08:10 Alkaline Phosphatase 77 IU/L (35-105) 08/01/21 08:10 Total Protein 5.6 g/dL (6.6-8.7) L 08/01/21 08:10 Albumin 3.4 g/dL (3.5-5.2) L 08/01/21 08:10 Globulin 2.2 g/dL (1.3-4.6) 08/01/21 08:10 Discharge Plan Discharge Patient Disposition: Home Clinical Impression: Ovarian cancer, Volume depletion Condition: Stable Prescriptions: No Action loratadine [Claritin] 10 mg Tablet 10 mg PO DAILY PRN (Reason: Allergy Symptoms) 0RF hydrocodone-acetaminophen [[place]] 5-325 mg Tablet 1 tab PO Q4H PRN (Reason: Pain) 0RF prochlorperazine maleate 10 mg Tablet 10 mg PO Q6H PRN (Reason: Nausea) 0RF famotidine 20 mg Tablet 20 mg PO DAILY 0RF dexamethasone 4 mg Tablet See Rx Instructions .ROUTE .COMPLEX 0RF Rx Instructions: take 5 tabs in am of chemotherapy ondansetron 4 mg tablet,disintegrating 4 mg PO Q6H PRN (Reason: nausea and vomiting) Qty: 14 0RF Discharge Orders: Discharge ED (Routine); Ordered 08/01/21 Ordered By: Matt Bliss Referrals: Immanuel,Nils F, DO [Primary Care Provider] - Discharge Diet: Advance as tolerated Discharge Activity: Increase activity as tolerated Patient Instructions: Opioid Safety Activity Restrictions/Additional Instructions: Continue to increase your oral intake of fluids as well as protein drinks, sports drinks etc. If you develop fever, other concerning symptoms inability eat or drink return to this or the nearest emergency department otherwise follow-up with your oncologist as scheduled. Continue all your usual medications. Coding Level of Care Code ED Mimeograph Operator for Chg Fwd Exam Comprehensive
[2021-08-01 08:19] LABS: Basophils % 0.4 %; Hematocrit 24.1 % (37.0-47.0); Hemoglobin 7.2 g/dL (11.5-15.3); Lymphocytes # 1.4 10^3/uL (0.8-4.8); Lymphocytes % 29.2 %; Mean Corpuscular HGB Conc 29.9 g/dL (30.0-36.0); Mean Corpuscular Hemoglobin 28.6 pg (28.0-34.0); Mean Corpuscular Volume 95.6 fl (81-99); Mean Platelet Volume 9.6 fL (7.4-10.4); Monocytes # 0.1 10^3/uL (0.2-0.9); Monocytes % 1.8 %; Neutrophils # 3.01 10^3/uL (1.8-7.7); Neutrophils % 61.6 %; Nucleated Red Blood Cells % 0 %; Platelet Count 286 10^3/cmm (130-400); Red Blood Count 2.52 10^6/uL (4.1-5.3); Red Cell Distribution Width 16.3 % (12.1-15.1); White Blood Count 4.9 10^3/uL (4.0-10.0)
[2021-08-01] MEDS: lactated ringers 1,000 ML 999 ML IV ×2 (08:25→09:49)
[2021-08-01 08:35] LABS: Alanine Aminotransferase 10 U/L (0-33); Albumin Level 3.4 g/dL (3.5-5.2); Alkaline Phosphatase 77 IU/L (35-105); Anion Gap 15.7 (5-19); Aspartate Amino Transferase 16 U/L (0-32); Blood Urea Nitrogen 17 mg/dL (8-23); Calcium 8.2 mg/dL (8.5-10.5); Carbon Dioxide 25 mmol/L (22-29); Chloride 103 mmol/L (98-107); Globulin 2.2 g/dL (1.3-4.6); Glucose 88 mg/dL (65-115); Osmolality Calculated 291 mOsm/kg (285-295); Potassium 3.7 mmol/L (3.5-5.1); Sodium 140 mmol/L (136-145); Total Bilirubin 0.3 mg/dL (0.15-1.2); Total Protein 5.6 g/dL (6.6-8.7)
[2021-08-01 09:02] LABS: Slide Review Slide Review Perform
== END 2021-08-01 11:22 | disposition home or self-care (01) ==
PROVIDERS: Emergency Provider Emergency Medicine; PCP Family Medicine
DX: C56.9 Malignant neoplasm of unspecified ovary (principal); E86.9 Volume depletion, unspecified; Z79.899 Other long term (current) drug therapy; Z87.891 Personal history of nicotine dependence
CPT/HCPCS: 80053; 85025; 96360; 99283

== ENCOUNTER 2021-08-05 11:18 | Emergency (ER) | payer MEDICARE, OTHER, SELFPAY ==
[2021-08-05 11:35] VITALS: BP 111/68; PULSE 104; RESP 19; TEMP 37; O2SAT 92; BMI 39.8
--- NOTE | 2021-08-05 12:04 | ED_ITS ---
HPI - General Adult General: Chief complaint: General Medical Stated complaint: Says she has Low Fluids Time Seen by Provider: 08/05/21 11:46 Source: patient Mode of arrival: ambulatory Limitations: no limitations History of Present Illness: 76-year-old female history of ovarian CA presents emergency room complaining of generally not feeling well. She is anemic she is scheduled for transfusion tomorrow. She has been chronically anemic intermittently has been transfused when she gets below 8 last week she was he had a hemoglobin of 7.2. On arrival here she is mildly tachycardic. She denies any hematochezia melena hematemesis coffee-ground emesis no nausea vomiting or diarrhea. Her appetite has been somewhat decreased. She felt like she could not wait until tomorrow to get her blood transfused. She is continuing to receive immunotherapy for her cancer. Her last treatment was 2 weeks ago. Onset (ago): day(s) Severity: mild Pain Consistency: constant Relieving factors: none Associated symptoms: Deny chest pain, confusion, cough, diaphoresis, decreased appetite, dyspnea, fevers/chills, headache(s), malaise, nausea, rash, palpitations, seizures, short of breath, syncope, vomiting or weakness Treatments prior to arrival: none Review of Systems Const: Denies: fever(s), chills, malaise or diaphoresis ENMT: Denies: throat pain, ear or mastoid pain, nasal discharge or nasal congestion Card: Denies: chest pain, palpitations or syncope Resp: Denies: dyspnea GI: Denies: abdominal pain, nausea or vomiting : Denies: flank pain, difficulty voiding, dysuria, urinary frequency or urinary urgency Skin/Breast: Denies: rash, pruritus or erythema Neuro: Denies: headache(s) or confusion PFSH ED PFSH: Medical History Diffuse large B cell lymphoma Port-A-Cath in place Status post insertion of nerve stimulator Surgical History H/O cataract extraction bilateral eyes H/O tubal ligation History of colon resection History of left knee replacement History of removal of Port-a-Cath History of total right knee replacement S/P cholecystectomy Family History Mother , at age Hypertension Cancer pancreatic Father , at age 72 Colon cancer 72 Denies family history of Ovarian cancer Diabetes Clotting disorder Heart disease Hyperlipidemia Breast cancer Anesthesia complication Bleeding disorder Uterine cancer Thyroid condition Stroke Social History Smoking and tobacco status: former smoker Second hand smoke exposure: No Alcohol intake: never Adopted: No Caregiver/support person: Yes Lives independently: Yes Household members: significant other Housing: House Marital status: / service: No Current occupational status: retired Current occupational exposures/hazards: No Pets and animals: Yes History of recent travel: No Leisure activites: exercise Sexually active: No Current gender identity: Female Cheli/Anabaptist: Faith Physical Exam Const: GENERAL APPEARANCE: cooperative and comfortable ORIENTATION/CONSCIOUSNESS: Yes awake, Yes oriented to person, Yes oriented to place and Yes oriented to time HENMT: COMMON NORMALS: normocephalic, atraumatic and hearing grossly normal bilaterally HEAD & SCALP: normocephalic and atraumatic Neck/C-Spine: COMMON NORMALS: no JVD Resp: COMMON NORMALS: normal respiratory effort, No retractions, No use of accessory muscles and clear to auscultation bilaterally AUSCULTATION: clear to auscultation bilaterally Cardio: COMMON NORMALS: no JVD, regular rate, regular rhythm and No murmurs present (Cardio) RATE: regular rate RHYTHM: regular rhythm GI: COMMON NORMALS: Soft to palpation and No hepatosplenomegaly present AUSCULTATION: Yes normoactive bowel sounds PALPATION: Yes Soft to palpation, No Tenderness to palpation present (GI), No Guarding due to palpation present (GI) and Yes No hepatosplenomegaly present Extremity: COMMON NORMALS: normal to inspection, capillary refill normal, no clubbing, cyanosis or edema, no calf tenderness and no pedal edema Neuro: SENSORIUM/ORIENTATION: Yes oriented to person, Yes oriented to place and Yes oriented to time Skin: COMMON NORMALS: no rashes or lesions noted GENERAL SKIN EXAM: no rashes or lesions noted Course 2 Vital Signs: Vital signs: Vital Signs Temperature 98.6 F 08/05/21 11:35 Pulse Rate 96 08/05/21 14:09 Respiratory Rate 16 08/05/21 14:09 Blood Pressure 138/75 08/05/21 14:09 Pulse Oximetry 94 08/05/21 14:09 MDM - General Adult Medical Decision Making Patient is anemic but stable. We will going to make arrangements for her to have a follow-up blood transfusion outpatient tomorrow. Follow-up with her primary care/gynecology following that. She has any worsening or change symptoms return. We did do a type and cross here to expedite her transfusion tomorrow also advised patient to leave her bracelets on so that they can go ahead and transfuse when she arrives tomorrow and outpatients. Medical Records I reviewed the patient's medical records. Lab Data I reviewed the patient's lab results. : 08/05/21 12:24 08/05/21 12:24 Laboratory Results WBC 1.8 10^3/uL (4.0-10.0) L 08/05/21 12:24 RBC 2.41 10^6/uL (4.1-5.3) L 08/05/21 12:24 Hgb 6.7 g/dL (11.5-15.3) L 08/05/21 12:24 Hct 22.2 % (37.0-47.0) L 08/05/21 12:24 MCV 92.1 fl (81-99) 08/05/21 12:24 MCH 27.8 pg (28.0-34.0) L 08/05/21 12:24 MCHC 30.2 g/dL (30.0-36.0) 08/05/21 12:24 RDW 16.2 % (12.1-15.1) H 08/05/21 12:24 Plt Count 145 10^3/cmm (130-400) 08/05/21 12:24 MPV 10.6 fL (7.4-10.4) H 08/05/21 12:24 Lymph % (Auto) Not Reportable 08/05/21 12:24 [facility] % (Auto) Not Reportable 08/05/21 12:24 Neut # (Auto) Gang Supervisor 08/05/21 12:24 Lymph # (Auto) Not Reportable 08/05/21 12:24 [facility] # (Auto) Not Reportable 08/05/21 12:24 Total Counted 100 (0-100) 08/05/21 12:24 Atypical Lymphs % Not Reportable 08/05/21 12:24 Absolute Neutrophils 0.3 10^3/cmm (1.4-6.5) L* 08/05/21 12:24 Segmented Neutrophils 10 % 08/05/21 12:24 Abs Segm Neuts (Man) 0.2 10/cmm (1.6-7.1) L 08/05/21 12:24 Band Neutrophils 6.0 % 08/05/21 12:24 Abs Band Neuts (Man) 0.1 10^3/cmm (0.0-1.2) 08/05/21 12:24 Lymphocytes (Manual) 52 % 08/05/21 12:24 Monocytes (Manual) 30.0 % 08/05/21 12: Absolute Monocytes 0.5 10^3/cmm (0.1-0.6) 08/05/21 12:24 Eosinophils (Manual) 2 % 08/05/21 12:24 Absolute Eosinophils 0.0 10^3/cmm (0.0-0.7) 08/05/21 12:24 Basophils (Manual) Not Reportable 08/05/21 12:24 Platelet Estimate Decreased (Normal) L 08/05/21 12:24 Giant Platelets Trace 08/05/21 12:24 Hypochromasia 1+ H 08/05/21 12:24 Anisocytosis 2+ H 08/05/21 12:24 Macrocytosis 1+ H 08/05/21 12:24 Ovalocytes 1+ H 08/05/21 12:24 Sodium 135 mmol/L (136-145) L 08/05/21 12:24 Potassium 3.5 mmol/L (3.5-5.1) 08/05/21 12:24 Chloride 98 mmol/L (98-107) 08/05/21 12:24 Carbon Dioxide 24 mmol/L (22-29) 08/05/21 12:24 Anion Gap 16.5 (5-19) 08/05/21 12:24 BUN 13 mg/dL (8-23) 08/05/21 12:24 Creatinine 0.9 mg/dL (0.5-0.9) 08/05/21 12:24 GFR Calculation Not Reportable 08/05/21 12:24 Glucose 125 mg/dL (65-115) H 08/05/21 12:24 Calculated Osmolality 282 mOsm/kg (285-295) L 08/05/21 12:24 Calcium 8.1 mg/dL (8.5-10.5) L 08/05/21 12:24 Discharge Plan Discharge Patient Disposition: Home Clinical Impression: Anemia Condition: Stable Prescriptions: No Action loratadine [Claritin] 10 mg Tablet 10 mg PO DAILY PRN (Reason: Allergy Symptoms) 0RF hydrocodone-acetaminophen [Pattison] 5-325 mg Tablet 1 tab PO Q4H PRN (Reason: Pain) 0RF prochlorperazine maleate 10 mg Tablet 10 mg PO Q6H PRN (Reason: Nausea) 0RF famotidine 20 mg Tablet 20 mg PO DAILY 0RF dexamethasone 4 mg Tablet See Rx Instructions .ROUTE .COMPLEX 0RF Rx Instructions: take 5 tabs in am of chemotherapy ondansetron 4 mg tablet,disintegrating 4 mg PO Q6H PRN (Reason: nausea and vomiting) Qty: 14 0RF tramadol 50 mg Tablet 50 mg PO TID PRN (Reason: Pain) 0RF duloxetine 30 mg Capsule,Delayed Release(Dr/Ec) 30 mg PO BID 0RF Discharge Orders: Discharge ED (Routine); Ordered 08/05/21 Ordered By: Edwin Cruz Referrals: Nils Gambino DO [Primary Care Provider] - Discharge Diet: Usual diet Discharge Activity: Limit activity as instructed Patient Instructions: Opioid Safety Activity Restrictions/Additional Instructions: Transfusion and outpatients tomorrow morning at 7 AM. Coding Level of Care Code ED Embossing Press Operator Apprentice for Chg Fwd Exam Comprehensive
[2021-08-05 12:44] LABS: Hematocrit 22.2 % (37.0-47.0); Hemoglobin 6.7 g/dL (11.5-15.3); Mean Corpuscular HGB Conc 30.2 g/dL (30.0-36.0); Mean Corpuscular Hemoglobin 27.8 pg (28.0-34.0); Mean Corpuscular Volume 92.1 fl (81-99); Mean Platelet Volume 10.6 fL (7.4-10.4); Platelet Count 145 10^3/cmm (130-400); Red Blood Count 2.41 10^6/uL (4.1-5.3); Red Cell Distribution Width 16.2 % (12.1-15.1); White Blood Count 1.8 10^3/uL (4.0-10.0)
[2021-08-05 12:46] VITALS: BP 126/66; PULSE 99; RESP 18; O2SAT 94
[2021-08-05 12:53] LABS: Anion Gap 16.5 (5-19); Blood Urea Nitrogen 13 mg/dL (8-23); Calcium 8.1 mg/dL (8.5-10.5); Carbon Dioxide 24 mmol/L (22-29); Chloride 98 mmol/L (98-107); Glucose 125 mg/dL (65-115); Osmolality Calculated 282 mOsm/kg (285-295); Potassium 3.5 mmol/L (3.5-5.1); Sodium 135 mmol/L (136-145)
[2021-08-05] MEDS: sodium chloride 0.9% 1,000 ML 999 ML IV (13:16)
[2021-08-05] MEDS: lidocaine 2% viscous 15 ML, aluminum-mag hydrox-simethicon 30 ML, sucralfate oral liq 1 GM PO (14:04)
[2021-08-05 14:09] VITALS: BP 138/75; PULSE 96; RESP 16; O2SAT 94
[2021-08-05 14:41] LABS: Absolute Segmented Neutrophil 0.2 10/cmm (1.6-7.1); Anisocytosis 2+; Band Neutrophils Absolute 0.1 10^3/cmm (0.0-1.2); Eosinophils 2 %; Giant Platelets Trace; Hypochromasia 1+; Lymphocytes 52 %; Macrocytosis 1+; Monocytes Absolute 0.5 10^3/cmm (0.1-0.6); Ovalocytes 1+; Platelet Estimate Decreased (Normal); Segmented Neutrophils 10 %; Total Cells Counted 100 (0-100)
[2021-08-05 14:44] LABS: Absolute Neutrophil 0.3 10^3/cmm (1.4-6.5)
== END 2021-08-05 16:04 | disposition home or self-care (01) ==
PROVIDERS: Emergency Provider Family Medicine; PCP Family Medicine
DX: D64.9 Anemia, unspecified (principal)
CPT/HCPCS: 80048; 85007; 85025; 96361; 96374; 99284; J1642; J7030

== ENCOUNTER → 2021-08-06 07:12 | Day surgery (SDC) | payer MEDICARE, OTHER, SELFPAY ==
[2021-08-06] VITALS (9 sets, daily range): BP systolic 119–157; BP diastolic 58–75; PULSE 80–104; RESP 18; TEMP 36.3–37; O2SAT 94–98
[2021-08-06] MEDS: sodium chloride 0.9% (100 ml) 100 ML 10 ML ×2 (09:00→11:38)
--- NOTE | 2021-08-06 10:45 | PC.NURSE ---
Pt to GI lab for blood transfusion. First unit PRBC's infused without difficulty. Second unit infusing. VSS. Pt family here with patient and will be driving patient home following transfusion.
== END ==
PROVIDERS: PCP Family Medicine; Visit Provider Family Medicine
DX: C54.1 Malignant neoplasm of endometrium (principal)
CPT/HCPCS: 36430; 36591; 86850; 86900; 86920; P9016

== ENCOUNTER 2021-08-08 19:32 | Inpatient (IN) | payer MEDICARE, OTHER, SELFPAY ==
[2021-08-08 19:55] VITALS: BP 126/71; PULSE 102; RESP 22; TEMP 37.3; O2SAT 97; BMI 39.8
--- NOTE | 2021-08-08 20:15 | ED_ITS ---
HPI - Fever General: Chief Complaint: Fever Stated Complaint: fever from chemo Time Seen by Provider: 08/08/21 20:14 History of Present Illness: Ms. Levine is a 76-year-old lady with significant past medical history of uterine cancer currently on chemotherapy who presents to the emergency department due to fever. She last had chemotherapy on 07/29 and this dose has been harder on her. Overall she feels unwell however symptoms were worse today. She slept until about noon which is worse than she felt yesterday. She subsequently developed fever of 103 taken under the tongue with a old style mercury thermometer. She contacted her doctorate of chiropractic-onc prior to the fever who recommended watching unless she developed a fever at which time she should present to the emergency department. She does endorse perhaps mild cough though cough is nonproductive. Additionally she notes some foul-smelling diarrhea but no significant abdominal discomfort. She did surgery at the start of July for lysis of adhesions and questionably further debulking. Overall intensity symptoms is moderate to severe Course has worsened. No other specific changes in health, exacerbating, or alleviating factors identified. Onset (ago): hour(s) Measured temperature: 103 F Context: on chemotherapy Associated symptoms: Reports diarrhea and nausea Review of Systems General: Reports: 10 or more systems reviewed and unremarkable except in HPI and below GI: Reports: nausea and diarrhea PFSH ED PFSH: Medical History Diffuse large B cell lymphoma Port-A-Cath in place Status post insertion of nerve stimulator Surgical History H/O cataract extraction bilateral eyes H/O tubal ligation History of colon resection History of left knee replacement History of removal of Port-a-Cath History of total right knee replacement S/P cholecystectomy Family History Mother , at age Hypertension Cancer pancreatic Father , at age 72 Colon cancer 72 Denies family history of Ovarian cancer Diabetes Clotting disorder Heart disease Hyperlipidemia Breast cancer Anesthesia complication Bleeding disorder Uterine cancer Thyroid condition Stroke Social History Smoking and tobacco status: former smoker Second hand smoke exposure: No Alcohol intake: never Adopted: No Caregiver/support person: Yes Lives independently: Yes Household members: significant other Housing: House Marital status: / service: No Current occupational status: retired Current occupational exposures/hazards: No Pets and animals: Yes History of recent travel: No Leisure activites: exercise Sexually active: No Current gender identity: Female Cheli/Congregational: Judaism Physical Exam Const: COMMON NORMALS: alert GENERAL APPEARANCE: cooperative, well developed and ill appearing HENMT: COMMON NORMALS: normocephalic and atraumatic HEAD & SCALP: normocephalic and atraumatic THROAT: posterior oropharynx normal Eye: COMMON NORMALS: conjunctivae normal CONJUNCTIVA: Yes conjunctivae normal SCLERA: sclerae normal Neck/C-Spine: COMMON NORMALS: supple GENERAL: Yes trachea midline Resp: COMMON NORMALS: normal respiratory effort and clear to auscultation bilaterally EFFORT & INSPECTION: Yes able to speak in complete sentences AUSCULTATION: clear to auscultation bilaterally Cardio: COMMON NORMALS: regular rate and regular rhythm RATE: regular rate RHYTHM: regular rhythm GI: COMMON NORMALS: Soft to palpation PALPATION: Yes Soft to palpation and No Tenderness to palpation present (GI) PERCUSSION: normal to percussion Extremity: GENERAL: Yes normal exam except as noted and No edema Neuro: COMMON NORMALS: moves all extremities SENSORIUM/ORIENTATION: Yes alert and No Orientation impaired Psych: COMMON NORMALS: mental status grossly normal and Normal thought process present THOUGHT PROCESS: Normal thought process present Course ED course: - Patient was seen and evaluated by me at bedside - Patient placed on cardiac monitors, IV access obtained - Initial evaluation notable for similar appearance, initially tachycardic. - Labs and xrays personally interpreted by me -Antipyretic, fluids, antibiotics ordered. - Labs notable for no leukocytosis, normocytic anemia. Thrombocytopenia noted. No evidence of active hemorrhage requiring platelet transfusion for metabolic panel notable for dehydration, hypokalemia, potassium replenishment ordered. - Imaging notable for no lobar consolidation or pneumothorax - Upon serial reexamination after treatment the patient was mildly proved though still ill in appearance - Based on patient history, evaluation, and testing as interpreted the most likely cause of the patient's condition is fever on chemotherapy - The results of ED evaluation were discussed with the patient including plan for admission due to requirement for level of care not available if discharged to prevent significant worsening/deterioration. - Admitting service was contacted and Dr Slater with the hospitalist service agreed to admit the patient. Repeat urinalysis due to initial contamination pending at time of admission. CT abdomen pelvis pending at time of admission and ordered at request of any physician. - Patient was admitted without further deterioration or significant events. Note: Click bubbles or prepopulated muniz in note writing are used for assistance with data collection and billing and are inherently more limited than narrative and other text portions of this note. Please use narrative for additional clinical history and defer to narrative/free test for any case of contradictory information. If information appears in only free text or click bubble it should be considered present or absent as reported. Please contact note health underwriter for clarifications of clinical information or contradictory information. MDM is a brief summary, contradictory or erroneous seeming information should be clarified and full note should be reviewed. Vital Signs: Vital signs: Vital Signs Temperature 98.1 F 08/11/21 20:11 Pulse Rate 100 08/11/21 20:11 Respiratory Rate 17 08/11/21 20:11 Blood Pressure 134/79 08/11/21 20:11 Pulse Oximetry 95 08/11/21 20:11 MDM - Fever Medical Decision Making 76-year-old lady currently on chemotherapy presenting with fever. Unclear etiology of fever after ED assessment. Empirically covered with antibiotics. Admitted for further management. Medical Records I reviewed the patient's medical records. Lab Data I reviewed the patient's lab results. : 08/11/21 17:54 08/11/21 03:27 Radiology Impressions Chest X-Ray 08/08/21 20:31 IMPRESSION: 1. No obvious acute consolidation. Suboptimal lung base assessment. Followup including lateral view may be obtained if clinically indicated. 2. Tortuous and prominent thoracic aorta. See discussion above. Abdomen/Pelvis CT 08/09/21 00:16 IMPRESSION: 1. Interval placement of left double pigtail ureteral stent. 2. Interval placement of right double pigtail ureteral stent. 3. Interval placement of IVC filter. 4. 5.2 x 4.8 x 4.2 cm left ovary. 5. Anastomosis in the rectum most consistent with previous partial resection. COMMENTS: For patients with an IVC filter, recommend assessment for a management plan for the patient's IVC filter. If there is no established management plan, recommend referral to an interventional clinician on a nonemergent basis for evaluation. Laboratory Results WBC 7.7 10^3/uL (4.0-10.0) 08/08/21 20:15 RBC 3.03 10^6/uL (4.1-5.3) L 08/08/21 20:15 Hgb 8.8 g/dL (11.5-15.3) L 08/08/21 20:15 Hct 27.1 % (37.0-47.0) L 08/08/21 20:15 MCV 89.4 fl (81-99) 08/08/21 20:15 MCH 29.0 pg (28.0-34.0) 08/08/21 20:15 MCHC 32.5 g/dL (30.0-36.0) 08/08/21 20:15 RDW 16.2 % (12.1-15.1) H 08/08/21 20:15 Plt Count 49 10^3/cmm (130-400) L 08/08/21 20:15 MPV 10.6 fL (7.4-10.4) H 08/08/21 20:15 Neut % (Auto) 67.3 % 08/08/21 20:15 Lymph % (Auto) 18.0 % 08/08/21 20:15 [place] % (Auto) 12.4 % 08/08/21 20:15 Eos % (Auto) 0.0 % 08/08/21 20:15 Baso % (Auto) 0.5 % 08/08/21 20:15 Neut # (Auto) 5.14 10^3/uL (1.8-7.7) 08/08/21 20:15 Lymph # (Auto) 1.4 10^3/uL (0.8-4.8) 08/08/21 20:15 [place] # (Auto) 1.0 10^3/uL (0.2-0.9) H 08/08/21 20:15 Eos # (Auto) 0.0 10^3/uL (0.0-0.8) 08/08/21 20:15 Baso # (Auto) 0.0 10^3/uL (0.0-0.1) 08/08/21 20:15 Nucleated RBC % (auto) 0 % 08/08/21 20:15 Nucleated RBCs # 0.0 /100WBC 08/08/21 20:15 Sodium 130 mmol/L (136-145) L 08/08/21 20:15 Potassium 2.5 mmol/L (3.5-5.1) L* 08/08/21 20:15 Chloride 92 mmol/L (98-107) L 08/08/21 20:15 Carbon Dioxide 23 mmol/L (22-29) 08/08/21 20:15 Anion Gap 17.5 (5-19) 08/08/21 20:15 BUN 13 mg/dL (8-23) 08/08/21 20:15 Creatinine 1.1 mg/dL (0.5-0.9) H 08/08/21 20:15 GFR Calculation Not Reportable 08/08/21 20:15 Glucose 102 mg/dL (65-115) 08/08/21 20:15 Calculated Osmolality 270 mOsm/kg (285-295) L 08/08/21 20:15 Lactic Acid 1.0 mmol/L (0.5-2.2) 08/08/21 20:15 Calcium 7.7 mg/dL (8.5-10.5) L 08/08/21 20:15 Magnesium 1.4 mg/dL (1.7-2.3) L 08/08/21 20:15 Total Bilirubin 0.5 mg/dL (0.15-1.2) 08/08/21 20:15 AST 36 U/L (0-32) H 08/08/21 20:15 ALT 22 U/L (0-33) 08/08/21 20:15 Alkaline Phosphatase 81 IU/L (35-105) 08/08/21 20:15 Total Protein 6.0 g/dL (6.6-8.7) L 08/08/21 20:15 Albumin 3.0 g/dL (3.5-5.2) L 08/08/21 20:15 Globulin 3.0 g/dL (1.3-4.6) 08/08/21 20:15 Urine Color Yellow (Yellow) 08/09/21 00:10 Urine Appearance Sl cloudy (CLEAR) A 08/09/21 00:10 Urine pH 7 (5-7) 08/09/21 00:10 Ur Specific [place] 1.010 (1.005-1.030) 08/09/21 00:10 Urine Protein 3+ (Negative) H 08/09/21 00:10 Urine Glucose (UA) Norm (Normal) 08/09/21 00:10 Urine Ketones Negative (Negative) 08/09/21 00:10 Urine Blood 3+ (Negative) H 08/09/21 00:10 Urine Nitrate Positive (Negative) H 08/09/21 00:10 Urine Bilirubin Neg (Negative) 08/09/21 00:10 Urine Urobilinogen Norm mg/dL (Negative) 08/09/21 00:10 Ur Leukocyte Esterase 2+ (Negative) H 08/09/21 00:10 Urine RBC >100 /hpf (0-2) H 08/08/21 23:17 Urine WBC >100 /hpf (0-5) H 08/08/21 23:17 Ur Squamous Epith Cells 55-80 /hpf (0-5) H 08/08/21 23:17 Amorphous Sediment Not Reportable 08/08/21 23:17 Urine Bacteria 4+ /hpf (NONE) H 08/08/21 23:17 Coronavirus 229E (PCR) Not detected (NOT DETECT) 08/08/21 20:30 SARS-CoV-2 (PCR) Not detected (NOT DETECT) 08/08/21 20:30 Critical Care Time Critical Care Time: Critical Care Time: Yes Total Critical Care Time: 35 Attestation: Due to a high probability of clinically significant, possibly life threatening deterioration, the patient required my highest level of attention and preparedness to intervene emergently and I personally spent this critical care time directly and personally managing the patient. This critical care time included obtaining a history; examining the patient; pulse oximetry; ordering and review of laboratory and imaging studies; arranging urgent treatment with development of a management plan; evaluation of patient's response to treatment; frequent reassessment; and, discussions with other providers as applicable. It was exclusive of separately billable procedures. Discharge Plan Discharge Patient Disposition: Admitted As Inpatient Admit Provider: Armando Slater Clinical Impression: Fever of unknown origin, Acquired immunocompromised state, Hypokalemia Condition: Stable Coding Level of Care Code ED Global Human Resources Director for Tono Mejia
--- NOTE | 2021-08-08 20:31 | XRR_ITS ---
PROCEDURE INFORMATION: Exam: XR Chest Exam date and time: 08/08/2021 8:53 PM Age: 76 years old Clinical indication: Dyspnea and shortness of breath; Additional info: Fever, chemo TECHNIQUE: Imaging protocol: XR of the chest. Views: 1 view. COMPARISON: CT chest con [id number] 06/12/2021 11:26 AM FINDINGS: Tubes, catheters and devices: Right chest wall infusion port with catheter tip in the cavoatrial region. Intraspinal stimulating wires are noted at the midthoracic level. Lungs: The lung bases are suboptimally assessed due to technique however the upper lungs are clear of focal consolidation. Pleural spaces: Unremarkable. No pleural effusion. No pneumothorax. Heart/Mediastinum: Cardiac silhouette appears normal in size. No obvious vascular congestion. Vasculature: Tortuous thoracic aorta which is somewhat prominent. Prior CT demonstrating mild ascending aortic aneurysmal dilatation measuring about 4.4 cm. . If there is a clinical concern for acute aortic pathology, CT correlation with contrast should be considered. Bones/joints: No acute osseous findings. Osteopenia. Other findings: Single view was submitted. XR/XR chest 1V portable [id number] IMPRESSION: 1. No obvious acute consolidation. Suboptimal lung base assessment. Followup including lateral view may be obtained if clinically indicated. 2. Tortuous and prominent thoracic aorta. See discussion above.
[2021-08-08 20:39] VITALS: BP 111/70; PULSE 96; RESP 21; TEMP 39.4; O2SAT 94
[2021-08-08 20:39] LABS: Basophils % 0.5 %; Hematocrit 27.1 % (37.0-47.0); Hemoglobin 8.8 g/dL (11.5-15.3); Lymphocytes # 1.4 10^3/uL (0.8-4.8); Mean Corpuscular HGB Conc 32.5 g/dL (30.0-36.0); Mean Corpuscular Volume 89.4 fl (81-99); Mean Platelet Volume 10.6 fL (7.4-10.4); Monocytes % 12.4 %; Neutrophils # 5.14 10^3/uL (1.8-7.7); Neutrophils % 67.3 %; Nucleated Red Blood Cells % 0 %; Platelet Count 49 10^3/cmm (130-400); Red Blood Count 3.03 10^6/uL (4.1-5.3); Red Cell Distribution Width 16.2 % (12.1-15.1); White Blood Count 7.7 10^3/uL (4.0-10.0)
[2021-08-08 21:07] LABS: Alanine Aminotransferase 22 U/L (0-33); Alkaline Phosphatase 81 IU/L (35-105); Anion Gap 17.5 (5-19); Aspartate Amino Transferase 36 U/L (0-32); Blood Urea Nitrogen 13 mg/dL (8-23); Calcium 7.7 mg/dL (8.5-10.5); Carbon Dioxide 23 mmol/L (22-29); Chloride 92 mmol/L (98-107); Glucose 102 mg/dL (65-115); Magnesium 1.4 mg/dL (1.7-2.3); Osmolality Calculated 270 mOsm/kg (285-295); Sodium 130 mmol/L (136-145); Total Bilirubin 0.5 mg/dL (0.15-1.2)
[2021-08-08] MEDS: cefepime 2,000 MG in sodium chloride 0.9% (plus) 50 ML 100 MG IV (21:10)
[2021-08-08] MEDS: acetaminophen 500 mg Tablet 1000 MG PO (21:22)
[2021-08-08 21:26] LABS: Potassium 2.5 mmol/L (3.5-5.1)
[2021-08-08 21:28] LABS: Slide Review Slide Review Perform
[2021-08-08 22:33] LABS: Adenovirus Not Detected (NOT DETECT); Chlamydia Pneumoniae Not Detected (NOT DETECT); Coronavirus 229E,HKU1,NL63,OC4 Not Detected (NOT DETECT); Human Metapneumovirus Not Detected (NOT DETECT); Human Rhinovirus/Enterovirus Not Detected (NOT DETECT); Influenza A Not Detected (NOT DETECT); Influenza A H1 Not Detected (NOT DETECT); Influenza A H1-2009 Not Detected (NOT DETECT); Influenza A H3 Not Detected (NOT DETECT); Influenza B Not Detected (NOT DETECT); Mycoplasma Pneumoniae Not Detected (NOT DETECT); Parainfluenza Virus Type 1 Not Detected (NOT DETECT); Parainfluenza Virus Type 2 Not Detected (NOT DETECT); Parainfluenza Virus Type 3 Not Detected (NOT DETECT); Parainfluenza Virus Type 4 Not Detected (NOT DETECT); Respiratory Syncytial Virus A Not Detected (NOT DETECT); Respiratory Syncytial Virus B Not Detected (NOT DETECT); SARS-COV-2 Not Detected (NOT DETECT)
[2021-08-08] MEDS: lidocaine 2% viscous 15 ML, aluminum-mag hydrox-simethicon 30 ML, sucralfate oral liq 1 GM PO (22:40)
[2021-08-08] MEDS: sodium chloride 0.9% 1,000 ML 100 ML IV (22:42)
[2021-08-08] MEDS: potassium chloride premix 100 ML 50 MEQ IV (22:43)
[2021-08-08] MEDS: magnesium sulfate premix 2 GM/50 ML PIGGYBACK IV (22:44)
[2021-08-08] MEDS: potassium chloride ER 20 mEq Tablet 40 MEQ PO (22:44)
[2021-08-08 23:51] LABS: Add Urine Microscopic? YES; Bilirubin Urine Neg (Negative); Blood Urine 3+ (Negative); Glucose Urine UA Norm (Normal); Ketones Urine 1+ (Negative); Leukocyte Esterase Urine 2+ (Negative); Nitrate Urine Positive (Negative); Protein Urine 3+ (Negative); Specific Gravity, Urine 1.005 (1.005-1.030); Urine Color Yellow (Yellow); Urobilinogen Urine Norm (Negative); pH Urine 7 (5-7)
[2021-08-08 23:53] LABS: RBC Urine >100 /hpf (0-2); WBC Urine >100 /hpf (0-5)
[2021-08-08 23:54] VITALS: BP 112/67; PULSE 87; RESP 23; TEMP 36.8; O2SAT 94
[2021-08-08 23:54] LABS: Add Urine Culture? No; Bacteria Urine 4+ /hpf; Squamous Epithelial Cell Urine 55-80 /hpf (0-5)
[2021-08-09] VITALS (8 sets, daily range): BP systolic 111–131; BP diastolic 61–81; PULSE 72–90; RESP 16–20; TEMP 36.6–37.2; O2SAT 93–98
--- NOTE | 2021-08-09 00:16 | CTR_ITS ---
PROCEDURE INFORMATION: Exam: CT Abdomen And Pelvis With Contrast Exam date and time: 08/09/2021 12:42 AM Age: 76 years old Clinical indication: Fever and other: Diarrhea; Prior surgery; Surgery type: Chest port. Colon resection. Gb. Tubal ligation. Nerve stimulator. Ureteral stent. Patient HX: Fever with diarrhea. Currently on chemotherapy. History of lymphoma and ovarian cancer. ; Additional info: Fever, chemotherapy, HX ureteral stents TECHNIQUE: Imaging protocol: Computed tomography of the abdomen and pelvis with contrast. Radiation optimization: All CT scans at this facility use at least one of these dose optimization techniques: automated exposure control; mA and/or kV adjustment per patient size (includes targeted exams where dose is matched to clinical indication); or iterative reconstruction. Contrast material: OMNI 300; Contrast volume: 75 ml; Contrast route: INTRAVENOUS (IV); COMPARISON: CT abdomen pelvis wo con [id number] 06/09/2021 9:07 PM RADIATION DOSE METRICS: Total DLP (mGy-cm): 1609.76 FINDINGS: Tubes, catheters and devices: Interval placement of left double pigtail ureteral stent. Interval placement of right double pigtail ureteral stent. Liver: Normal. No mass. Gallbladder and bile ducts: Stable cholecystectomy. Pancreas: Normal. No ductal dilation. Spleen: Calcified splenic granulomas. Adrenal glands: Normal. No mass. Kidneys and ureters: Normal. No hydronephrosis. Stomach and bowel: Anastomosis in the rectum most consistent with previous partial resection. Appendix: No evidence of appendicitis. Intraperitoneal space: Unremarkable. No free air. No significant fluid collection. Vasculature: Interval placement of IVC filter. Calcification of the abdominal aorta and/or iliac arteries consistent with atherosclerotic vessel disease. One or more calcified pelvic phleboliths. Lymph nodes: Unremarkable. No enlarged lymph nodes. Urinary bladder: Unremarkable as visualized. Reproductive: 5.2 x 4.8 x 4.2 cm left ovary. Bones/joints: Unremarkable. No acute fracture. Soft tissues: Unremarkable. CT/CT abdomen pelvis w con* [id number] IMPRESSION: 1. Interval placement of left double pigtail ureteral stent. 2. Interval placement of right double pigtail ureteral stent. 3. Interval placement of IVC filter. 4. 5.2 x 4.8 x 4.2 cm left ovary. 5. Anastomosis in the rectum most consistent with previous partial resection. COMMENTS: For patients with an IVC filter, recommend assessment for a management plan for the patient's IVC filter. If there is no established management plan, recommend referral to an interventional clinician on a nonemergent basis for evaluation.
[2021-08-09 00:57] LABS: Charge for UA Resulting for Rev
[2021-08-09 01:01] LABS: Add Urine Microscopic? YES; Bilirubin Urine Neg (Negative); Blood Urine 3+ (Negative); Glucose Urine UA Norm (Normal); Ketones Urine Negative (Negative); Leukocyte Esterase Urine 2+ (Negative); Nitrate Urine Positive (Negative); Protein Urine 3+ (Negative); Urine Color Yellow (Yellow); Urobilinogen Urine Norm (Negative); pH Urine 7 (5-7)
--- NOTE | 2021-08-09 01:21 | P.HP_ITS ---
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 Mathis, in [place]. She tells me that she has not been feeling well since her chemotherapy, she is required 2 units of blood, she been feeling fatigued, weak, nauseous, poor appetite, has not been drinking well. She had a fall yesterday, she has been feeling weak, with no falls no significant head trauma no loss of consciousness, but does report feeling lightheaded. She remained in bed all day today, she was not feeling well, her daughter checked up on her and she had a fever. She denies any dysuria. No flank pain. No a bdominal pain. She does have diarrhea but she thinks it is associated with her chemotherapy. No shortness of breath. Review of Systems Const: Reports: fever(s), fatigue and malaise Card: Denies: chest pain Resp: Denies: dyspnea or non-productive cough GI: Reports: diarrhea; Denies: abdominal pain, nausea or vomiting : Denies: flank pain or difficulty voiding Skin/Breast: Denies: rash Medications/Allergies Home Medications Medication Instructions Recorded Confirmed Last Taken Type loratadine 10 mg tablet (Claritin) 10 mg PO DAILY PRN 02/14/21 08/06/21 08/06/21 History dexamethasone 4 mg tablet See Rx Instructions .ROUTE .COMPLEX 07/15/21 08/06/21 08/06/21 History famotidine 20 mg tablet 20 mg PO DAILY 07/15/21 08/06/21 08/06/21 History hydrocodone 5 mg-acetaminophen 325 1 tab PO Q4H PRN 07/15/21 08/06/21 08/06/21 History mg tablet ondansetron 4 mg disintegrating 4 mg PO Q6H PRN #14 tab 07/15/21 08/06/21 08/06/21 Rx tablet prochlorperazine maleate 10 mg 10 mg PO Q6H PRN 07/15/21 08/06/21 08/06/21 History tablet duloxetine 30 mg capsule,delayed 30 mg PO BID 08/05/21 08/06/21 08/06/21 History release tramadol 50 mg tablet 50 mg PO TID PRN 08/05/21 08/06/21 08/06/21 History Allergies Allergy/AdvReac Type Severity Reaction Status Date / Time No Known Allergies Allergy Verified 08/06/21 07:56 PFSH Acute PFSH: Medical History Diffuse large B cell lymphoma Port-A-Cath in place Status post insertion of nerve stimulator Surgical History H/O cataract extraction bilateral eyes H/O tubal ligation History of colon resection History of left knee replacement History of removal of Port-a-Cath History of total right knee replacement S/P cholecystectomy Family History Mother , at age Hypertension Cancer pancreatic Father , at age 72 Colon cancer 72 Denies family history of Ovarian cancer Diabetes Clotting disorder Heart disease Hyperlipidemia Breast cancer Anesthesia complication Bleeding disorder Uterine cancer Thyroid condition Stroke Social History Smoking and tobacco status: former smoker Second hand smoke exposure: No Alcohol intake: never Adopted: No Caregiver/support person: Yes Lives independently: Yes Household members: significant other Housing: House Marital status: / service: No Current occupational status: retired Current occupational exposures/hazards: No Pets and animals: Yes History of recent travel: No Leisure activites: exercise Sexually active: No Current gender identity: Female Cheli/Confucianist: Muslim Vitals/I&O/Wt Last Vital Signs Temp 98.2 F 08/08/21 23:54 Pulse 87 08/08/21 23:54 Resp 23 H 08/08/21 23:54 BP 112/67 08/08/21 23:54 Pulse Ox 94 08/08/21 23:54 08/08/21 08/08/21 08/09/21 14:59 22:59 06:59 Intake Total 50 / 50 Balance 50 / 50 Weight last 48 hrs Weight 105.233 kg Physical Exam Const: COMMON NORMALS: no acute distress and patient oriented x3 HENMT: COMMON NORMALS: normocephalic HEAD & SCALP: normocephalic Eye: COMMON NORMALS: Equal, round and reactive pupils present and EOMs intact bilaterally Neck/C-Spine: COMMON NORMALS: no JVD Resp: COMMON NORMALS: normal respiratory effort, No retractions, No use of accessory muscles and clear to auscultation bilaterally AUSCULTATION: clear to auscultation bilaterally Cardio: COMMON NORMALS: no JVD, regular rate, regular rhythm, S1 normal heart sound present and S2 normal heart sound present RATE: regular rate RHYTHM: regular rhythm HEART SOUNDS: S1 normal heart sound present and S2 normal heart sound present GI: COMMON NORMALS: Normal to inspection, nondistended, normoactive bowel sounds present, Soft to palpation, non-tender, No hepatosplenomegaly present, no masses and no bruits PALPATION: Yes Soft to palpation and Yes No hepatosplenomegaly present Extremity: COMMON NORMALS: capillary refill normal, no clubbing, cyanosis or edema, no calf tenderness and no pedal edema Neuro: COMMON NORMALS: patient oriented x3 Psych: COMMON NORMALS: mental status grossly normal Data : 08/08/21 20:15 08/08/21 20:15 Micro: Microbiology 08/08/21 21:29 Blood Culture - Preliminary Blood SPECIMEN COLLECTED 08/08/21 20:20 Blood Culture - Preliminary Blood SPECIMEN COLLECTED A&P Assessment and plan (1) Anemia: Status: Acute (2) Hypokalemia: Status: Acute (3) Bilateral ureteral obstruction: Status: Acute (4) Bilateral tubo-ovarian mass: Status: Acute (5) Right leg DVT: Status: Acute (6) Bilateral hydronephrosis: Status: Acute (7) Port-A-Cath in place: Status: Resolved (8) Hypomagnesemia: Status: Acute (9) Urinary tract infection: Status: Acute Plan UTI -With immunocompromise state, on chemotherapy, for endometrial carcinoma -Has received cefepime in the emergency room, will start Primaxin -Follow blood cultures, urine cultures -Tylenol for fevers -CT abdomen pelvis has been ordered -She does have bilateral ureteral stents and placed to help alleviate obstructive uropathy from mass-effect Endometrial mass, bilateral ovarian mass, concerning for endometrial carcinoma with sarcomatous component, mass-effect bilateral ureters, status post ureteral stent placement, currently on chemotherapy cycle 2 Deconditioning, protein calorie malnutrition, PT OT, nutrition consult Hypokalemia, has received p.o. and IV replacement recheck potassium Hypomagnesemia, has received IV replacement Acute kidney injury, IV fluids Anemia, hemoglobin 8.8, intolerant to anticoagulation, status post 2 units PRBC, continue to monitor Thrombocytopenia, likely sec to chemotherapy effect, 49,000 monitor Patient is DNR/DNI SCDs for DVT prophylaxis Anticoagulation relatively contraindicated given anemia, thrombocytopenia Attestations Medical Necessity Statement*: Patient requires hospitalization, inpatient, greater than 2 midnights, for immunocompromise state, on chemotherapy, with UTI, hypokalemia, hypomagnesemia Coding Level of Care Code Acute Film Laboratory Technician for Chg Fwd Diagnoses Anemia D64.9 Hypokalemia E87.6 Bilateral ureteral obstruction N13.5 Bilateral tubo-ovarian mass N83.8 Right leg DVT I82.401 Bilateral hydronephrosis N13.30 Port-A-Cath in place Z95.828 Hypomagnesemia E83.42 Urinary tract infection N39.0
--- NOTE | 2021-08-09 01:50 | PC.NURSE ---
ADMIT NOTE Pt received to floor from ER at 0135. Walked from hallway into room and immediately had to use BSC. Reports having diarrhea. Denies nausea but says has had alot of acid reflux Received med in the ER that she says has helped. Is currently doing chemo tx for uterine cancer. Says it has been very rough. Has not had an appetite and has lost 30lbs. Developed fever today up to 103. Tylenol given in the ER. Has PAC to right upper chest with Mag Carlyle currently infusing. Received K+ replacement in the ER as well as IV antibiotic. RN at bedside completing admission assessment
[2021-08-09] MEDS: dextrose 5%-sod chloride 0.9% 1,000 ML 100 ML IV ×2 (02:11→14:48)
[2021-08-09] MEDS: pantoprazole 40 mg SDV IVP (02:14)
[2021-08-09] MEDS: iohexol 300 mg/mL 100 mL Btl IV (03:00)
[2021-08-09 04:20] LABS: INR 1.18 (0.8-1.2)
[2021-08-09 04:39] LABS: Thyroid Stimulating Hormone 2.15 uIU/mL (0.27-4.20)
[2021-08-09] MEDS: duloxetine 30 mg Capsule PO ×2 (08:16→17:19)
--- NOTE | 2021-08-09 11:08 | PC.NURSE ---
Patient states, I do not want to leave this heart monitor on I do not need it. Dr. Ledesma notified
--- NOTE | 2021-08-09 14:25 | PM.MISC ---
Miscellaneous Note Purpose of Documentation: Mini Progress Note Note: Seen this morning. Her Mediport was leaking as per nursing staff. I have asked help from surgical team to evaluate the patient's Mediport. We will stop using it and I have asked nurse to place a peripheral line to use that for antibiotic administration and if fluid is needed. RN acknowledged. Patient states she is currently going active chemotherapy and has had 2 cycles so far. She states eventually she will be going for surgery as well as an outpatient. She did have a fever of 103 in the last 24 hours. We will continue Primaxin for now. Await results of urine culture to decide further management.
[2021-08-09 15:36] LABS: Anion Gap 17.6 (5-19); Blood Urea Nitrogen 12 mg/dL (8-23); Calcium 7.7 mg/dL (8.5-10.5); Carbon Dioxide 21 mmol/L (22-29); Chloride 97 mmol/L (98-107); Glucose 120 mg/dL (65-115); Osmolality Calculated 277 mOsm/kg (285-295); Sodium 133 mmol/L (136-145)
[2021-08-09 15:38] LABS: Potassium 2.6 mmol/L (3.5-5.1)
[2021-08-09] MEDS: magnesium sulfate premix 2 GM/50 ML PIGGYBACK IV (16:04)
[2021-08-09] MEDS: potassium chloride ER 20 mEq Tablet 40 MEQ PO (16:04)
[2021-08-09 16:51] LABS: Basophils % 0.3 %; Hematocrit 24.3 % (37.0-47.0); Hemoglobin 8.1 g/dL (11.5-15.3); Lymphocytes # 1.3 10^3/uL (0.8-4.8); Lymphocytes % 21.7 %; Mean Corpuscular HGB Conc 33.3 g/dL (30.0-36.0); Mean Corpuscular Hemoglobin 29.2 pg (28.0-34.0); Mean Corpuscular Volume 87.7 fl (81-99); Mean Platelet Volume 11.5 fL (7.4-10.4); Monocytes # 0.7 10^3/uL (0.2-0.9); Monocytes % 12.3 %; Neutrophils # 3.78 10^3/uL (1.8-7.7); Neutrophils % 64.7 %; Nucleated Red Blood Cells % 0.3 %; Platelet Count 35 10^3/cmm (130-400); Red Blood Count 2.77 10^6/uL (4.1-5.3); Red Cell Distribution Width 16.3 % (12.1-15.1); White Blood Count 5.9 10^3/uL (4.0-10.0)
[2021-08-09 16:57] LABS: Slide Review Slide Review Perform
[2021-08-09] MEDS: potassium chloride premix 100 ML 50 MEQ IV (17:18)
[2021-08-10 00:52] VITALS: BP 117/83; PULSE 89; RESP 18; TEMP 36.6; O2SAT 98
[2021-08-10] MEDS: pantoprazole 40 mg SDV IVP (01:33)
[2021-08-10 04:18] LABS: Basophils % 0.2 %; Eosinophils % 0.2 %; Hematocrit 23.9 % (37.0-47.0); Hemoglobin 7.7 g/dL (11.5-15.3); Lymphocytes # 1.8 10^3/uL (0.8-4.8); Mean Corpuscular HGB Conc 32.2 g/dL (30.0-36.0); Mean Corpuscular Hemoglobin 28.9 pg (28.0-34.0); Mean Corpuscular Volume 89.8 fl (81-99); Mean Platelet Volume 10.2 fL (7.4-10.4); Monocytes # 0.6 10^3/uL (0.2-0.9); Monocytes % 9.8 %; Neutrophils # 3.39 10^3/uL (1.8-7.7); Neutrophils % 57.4 %; Nucleated Red Blood Cells % 0 %; Platelet Count 30 10^3/cmm (130-400); Red Blood Count 2.66 10^6/uL (4.1-5.3); Red Cell Distribution Width 16.6 % (12.1-15.1); White Blood Count 5.9 10^3/uL (4.0-10.0)
[2021-08-10 04:41] LABS: Alanine Aminotransferase 33 U/L (0-33); Albumin Level 2.6 g/dL (3.5-5.2); Alkaline Phosphatase 74 IU/L (35-105); Anion Gap 14.9 (5-19); Aspartate Amino Transferase 55 U/L (0-32); Blood Urea Nitrogen 11 mg/dL (8-23); C Reactive Protein 218.7 mg/L (0.0-4.9); Calcium 7.8 mg/dL (8.5-10.5); Carbon Dioxide 21 mmol/L (22-29); Chloride 101 mmol/L (98-107); Creatine Phosphokinase 53 U/L (26-192); Glucose 123 mg/dL (65-115); Magnesium 2.1 mg/dL (1.7-2.3); Osmolality Calculated 279 mOsm/kg (285-295); Phosphorus 2.2 mg/dL (2.5-4.5); Sodium 134 mmol/L (136-145); Total Bilirubin 0.3 mg/dL (0.15-1.2); Total Protein 5.6 g/dL (6.6-8.7)
[2021-08-10 04:44] VITALS: BP 152/81; PULSE 74; RESP 17; TEMP 36.8; O2SAT 97
[2021-08-10 04:46] LABS: Potassium 2.9 mmol/L (3.5-5.1)
[2021-08-10 04:49] LABS: Slide Review Slide Review Perform
[2021-08-10] MEDS: dextrose 5%-sod chloride 0.9% 1,000 ML 100 ML IV ×2 (05:41→14:49)
[2021-08-10] MEDS: potassium chloride ER 20 mEq Tablet 40 MEQ PO ×3 (06:29→17:21)
[2021-08-10 08:00] VITALS: BP 108/59; PULSE 74; RESP 18; TEMP 36.7; O2SAT 97
--- NOTE | 2021-08-10 08:24 | PM.PN ---
Subjective Subjective: Seen this morning. Her diarrhea has resolved. She says that she has a lot of gas and every time she passes gas sometimes she will get a little bit of stool with it which is liquid. But otherwise she does not have true diarrhea where she is going multiple times a day. I offered her Imodium but she said she is okay for now. Stool cultures are negative. C. difficile is negative. Urine output 900 over the last 24 hours. Hemoglobin 7.7. She does have chronic anemia. Potassium low again 2.9. Will replete. Urine culture growing Enterococcus sensitivity pending. Procalcitonin 0.70. Her Mediport no longer leaking. It was accessed incorrectly yesterday. It is doing okay now. We will cancel general surgery consult. Vitals/I&O/Wt Last Vital Signs Temp 98.2 F 08/10/21 04:44 Pulse 74 08/10/21 04:44 Resp 17 08/10/21 04:44 BP 152/81 08/10/21 04:44 Pulse Ox 97 08/10/21 04:44 08/09/21 08/10/21 08/10/21 22:59 06:59 14:59 Intake Total 500 / 1840 1301.667 / 3141.667 50 / 50 Output Total 500 / 1500 400 / 1900 Balance 0 / 340 901.667 / 1241.667 50 / 50 Weight last 48 hrs Weight 105.233 kg Physical Exam Narrative: General: Alert oriented x3, patient seen sitting up on edge of bed appearing very comfortable. HEENT: Normocephalic, atraumatic, EOMI, breathing normally, obese female Cardio: Regular rate rhythm, normal S1-S2, no murmurs, Mediport in place, skin around it dry nonerythematous no longer leaking. Respiratory: Good bilateral air entry, no wheezes no rhonchi appreciated GI: Abdomen soft, nontender, bulky abdomen, bowel sounds + Behavior: Appropriate and cooperative Extremities: Trace to 1+ edema bilateral lower extremities,, no cyanosis Data : 08/10/21 03:50 08/10/21 03:50 Micro: Microbiology 08/08/21 21:29 Blood Culture - Preliminary Blood NEGATIVE TO DATE 08/08/21 20:20 Blood Culture - Preliminary Blood NEGATIVE TO DATE 08/08/21 23:37 Stool Lactoferrin - Final Stool Enteric Pathogens (PCR) - Final Parasite Antigen Panel - Final C.difficile Toxin B Gene (PCR) - Final Occult Blood (FIT) - Final A&P Assessment and plan (1) Urinary tract infection: Status: Acute (2) Hypomagnesemia: Status: Acute (3) Anemia: Status: Acute (4) Fever of unknown origin: Status: Acute (5) Acquired immunocompromised state: Status: Acute (6) Hypokalemia: Status: Acute (7) Bilateral ureteral obstruction: Status: Acute (8) Bilateral tubo-ovarian mass: Status: Acute (9) Right leg DVT: Status: Acute (10) Bilateral hydronephrosis: Status: Acute (11) Ovarian mass, left: Status: Acute (12) Port-A-Cath in place: Status: Resolved Plan #UTI, Enterococcus #Chemotherapy-induced diarrhea, improving #Anemia, chronic, status post 2 unit packed RBC #Deconditioning #Protein calorie malnutrition #History of right lower extremity DVT intolerant to anticoagulation due to anemia status post IVC filter placement #History of bilateral hydronephrosis secondary to ovarian mass #KAT status post ureteral stent placement?still in place #Endometrial adenocarcinoma with pleomorphic sarcomatous components, currently on chemotherapy cycle 2 #Hypomagnesemia, hypophosphatemia, hypokalemia #History of diffuse large B-cell lymphoma #Immunocompromise state on chemotherapy ? Continue patient on Primaxin for UTI. Urine cultures growing Enterococcus. Sensitivity pending ? She will continue to see Dr. Brandon harp in [place] for her endometrial carcinoma as follow-up as an outpatient ? Continue to supplement potassium ? KAT is improving. Continue IV fluids ? Status post 2 units packed RBC. Continue monitoring hemoglobin ? Thrombocytopenia on admission 49,000. 30,000 today. No evidence of bleeding. We will continue to monitor. -Continue to replete electrolytes ? Do not believe she is a candidate for Neupogen at this time. We will keep an eye out for neutropenia. Continue to monitor for temperature. Afebrile so far. ? He states she is feeling a lot better compared to when she first came in. ? Nutrition consult appreciated. -We will use Lomotil versus Imodium if needed for diarrhea but this has improved so far. DNR/DNI Attestations Medical Necessity Statement*: Requires inpatient level care for continued IV antibiotics until cultures activity back for UTI. Coding Level of Care Code Acute Compliance Consultant for Chg Fwd Diagnoses Urinary tract infection N39.0 Hypomagnesemia E83.42 Anemia D64.9 Fever of unknown origin R50.9 Acquired immunocompromised state D84.9 Hypokalemia E87.6 Bilateral ureteral obstruction N13.5 Bilateral tubo-ovarian mass N83.8 Right leg DVT I82.401 Bilateral hydronephrosis N13.30 Ovarian mass, left N83.8 Port-A-Cath in place Z95.828
[2021-08-10] MEDS: duloxetine 30 mg Capsule PO ×2 (09:10→17:21)
[2021-08-10] MEDS: potassium chloride premix 100 ML 25 MEQ IV (09:51)
[2021-08-10 11:55] VITALS: BP 124/75; PULSE 79; RESP 18; TEMP 36.6; O2SAT 97
[2021-08-10 16:00] VITALS: BP 110/73; PULSE 91; RESP 17; TEMP 36.8; O2SAT 97
[2021-08-10 20:00] VITALS: BP 147/84; PULSE 84; RESP 18; TEMP 36.7; O2SAT 98
[2021-08-11] VITALS: BP 136/75; PULSE 83; RESP 18; TEMP 36.8; O2SAT 97
[2021-08-11] MEDS: HYDROcodone-acetaminophen 5-325 mg Tablet 1 TAB PO (01:41)
[2021-08-11 03:43] LABS: Eosinophils % 0.2 %; Hemoglobin 7.2 g/dL (11.5-15.3); Lymphocytes # 1.7 10^3/uL (0.8-4.8); Lymphocytes % 33.7 %; Mean Corpuscular HGB Conc 31.3 g/dL (30.0-36.0); Mean Corpuscular Hemoglobin 28.7 pg (28.0-34.0); Mean Corpuscular Volume 91.6 fl (81-99); Monocytes # 0.4 10^3/uL (0.2-0.9); Monocytes % 8.9 %; Neutrophils # 2.79 10^3/uL (1.8-7.7); Neutrophils % 56.4 %; Nucleated Red Blood Cells % 0 %; Red Blood Count 2.51 10^6/uL (4.1-5.3); Red Cell Distribution Width 16.8 % (12.1-15.1)
[2021-08-11 03:58] LABS: Lactate (Lactic Acid level) 0.8 mmol/L (0.5-2.2)
[2021-08-11 04:00] VITALS: BP 169/108; PULSE 77; RESP 18; TEMP 36.9; O2SAT 98
[2021-08-11 04:00] LABS: Alanine Aminotransferase 28 U/L (0-33); Albumin Level 2.5 g/dL (3.5-5.2); Alkaline Phosphatase 66 IU/L (35-105); Aspartate Amino Transferase 36 U/L (0-32); Blood Urea Nitrogen 10 mg/dL (8-23); C Reactive Protein 140.3 mg/L (0.0-4.9); Calcium 7.9 mg/dL (8.5-10.5); Carbon Dioxide 20 mmol/L (22-29); Chloride 110 mmol/L (98-107); Creatine Phosphokinase 32 U/L (26-192); Globulin 2.4 g/dL (1.3-4.6); Glucose 121 mg/dL (65-115); Magnesium 1.7 mg/dL (1.7-2.3); Osmolality Calculated 288 mOsm/kg (285-295); Phosphorus 2.8 mg/dL (2.5-4.5); Sodium 139 mmol/L (136-145); Total Bilirubin 0.3 mg/dL (0.15-1.2); Total Protein 4.9 g/dL (6.6-8.7)
[2021-08-11 04:03] LABS: Procalcitonin 0.46 ng/mL (0-0.5)
[2021-08-11 04:08] LABS: Platelet Count 27 10^3/cmm (130-400)
[2021-08-11 04:14] LABS: Slide Review Slide Review Perform
[2021-08-11] MEDS: dextrose 5%-sod chloride 0.9% 1,000 ML 100 ML IV (05:00)
[2021-08-11 08:00] VITALS: BP 136/78; PULSE 75; RESP 16; TEMP 36.5; O2SAT 97
[2021-08-11 12:00] VITALS: BP 135/82; PULSE 85; RESP 16; TEMP 36.4; O2SAT 98
--- NOTE | 2021-08-11 12:44 | USCV_ITS ---
Francie Levine Age: 76 Gender: F : 1945 Exam Date: 08/11/2021 14:58 Ordering Phys: Dayanara Ledesma MD Technologist: Octavia Oswald Exam Location: [facility] – [place] Indication: mottled lower legs Risk Factors: Unknown Previous Vascular Surgery: None RIGHT LEFT BP: 128.0 / BP: 123.0/ 71.00 0 0 Waveform Velocity (cm/s) Velocity (cm/s) Waveform Triphasic 131.3 Iliac Prox 96.9 Triphasic Triphasic 106.1 Iliac Mid 73.0 Monophasic Triphasic 120.5 Iliac Distal 70.0 Biphasic Triphasic 111.5 CARDIOLOGY CLINICAL NURSE SPECIALIST 69.1 Biphasic Triphasic 97.1 SFA Prox 57.4 Triphasic Triphasic 72.3 SFA Mid 49.0 Biphasic Triphasic 59.8 SFA Dist 55.2 Biphasic Triphasic 48.7 POP Monophasic 31.8 BLADE WORKER 31.8 Biphasic Biphasic 45.5 DPA 29.7 Biphasic 1.0 GURDEEP FINDINGS There is flow in Lt Pop. Pt got up twice to go to bathroom. I missed that. Cuff to 200 on lt. could not calc GURDEEP but there is flow. Systolic blood pressure was greater than 200 on the left side Resting GURDEEP 1.0 on the right side. Noncompressible vessels on the left side Minimal plaques of the iliac and femoral arteries bilaterally CONCLUSIONS 1. Normal resting GURDEEP on the right side. 2. Noncompressible vessels on the left side 3. Abnormal arterial Doppler waveforms, in the infrapopliteal vessels may suggest nonobstructive arterial disease bilaterally. Dr Joanne Muller MD [facility] (Electronically Signed) Final Date: 12 August 2021 17:34 S
--- NOTE | 2021-08-11 13:47 | PM.TDS ---
Transfer Summary Providers Date of Admission: 08/09/21 00:17 Date of Discharge/Transfer: 08/11/21 Attending Provider at Admission: Armando Slater MD Attending Provider at Transfer: Dayanara Ledesma MD Primary Care Provider: Nils Gambino DO Transfer Plans: Anticipated date of transfer: 08/11/21. Diagnoses at Discharge Discharge Diagnosis (1) Urinary tract infection: Status: Acute (2) Hypomagnesemia: Status: Acute (3) Anemia: Status: Acute (4) Fever of unknown origin: Status: Acute (5) Acquired immunocompromised state: Status: Acute (6) Hypokalemia: Status: Acute (7) Bilateral ureteral obstruction: Status: Acute (8) Bilateral tubo-ovarian mass: Status: Acute (9) Right leg DVT: Status: Acute (10) Bilateral hydronephrosis: Status: Acute (11) Ovarian mass, left: Status: Acute (12) Port-A-Cath in place: Status: Resolved Reason for Visit Reason for Visit fever from chemo Brief History: As per Dr. 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 Mathis, in [place].? She tells me that she has not been feeling well since her chemotherapy, she is required 2 units of blood, she been feeling fatigued, weak, nauseous, poor appetite, has not been drinking well.? She had a fall yesterday, she has been feeling weak, with no falls no significant head trauma no loss of consciousness, but does report feeling lightheaded.? She remained in bed all day today, she was not feeling well, her daughter checked up on her and she had a fever.? She denies any dysuria.? No flank pain.? No abdominal pain.? She does have diarrhea but she thinks it is associated with her chemotherapy.? No shortness of breath. Hospital Course Hospital Course Patient is a 76-year old who presented to the hospital for chemotherapy-induced diarrhea and UTI. She also has chronic anemia and she is status post 2 units packed RBC. She was placed on Primaxin for her UTI sensitivity pending. Sensitivity came back today. Antibiotic has been switched to levofloxacin based on sensitivities. Please see her culture sensitivity note attached to this document. Hemoglobin continued to drop and is now 7.2 today. She also had thrombocytopenia present on admission 49,000. There is no evidence of bleeding. Today drop of 27,000. Neutrophil count is okay. I discussed with oncology (Dr. Hare's office) and she is not a candidate for Neupogen at this time. Her gynecological oncologist is located in [place]. I talked to the nurse practitioner there. She stated that she will be admitting the patient as a direct admit to [facility] to further treat the bone marrow suppression and pancytopenia. Initially she requested I give the patient 1 unit of platelet and 1 unit of blood however later it was decided that patient will have studies repeated at [facility] today and then transfusion will be done according to her numbers. Patient was on IV fluids while here for her KAT. Her KAT improved and creatinine is normal today. IV fluids have been stopped. She has increasing lower extremity edema and very slight mottling present today on lower extremities. Arterial dopplers ordered, no acute occlusion seen. Nursing staff reported that patient refused to work with physical therapy and she has been sitting all day in bed. She is unsure if this is new versus old. She does have an IVC filter in place. She does have a history of bilateral hydronephrosis secondary to a ovarian mass. I discussed all of the above with the patient and she is agreeable to be transferred to [place] under the care of Dr. Brandon harp which is her gynecological oncologist. This was also discussed with her daughter who was present in the room today. She will be transferred to [facility] in stable condition. Blood pressure 135/82, pulse 85, respiratory 16, temperature 97.5, saturating 98% on room air. Patient did complain of little bit of vaginal itching today and due to recent antibiotics I have given her 1 dose of fluconazole 150 mg oral x1. I have also ordered her Lasix 20 mg IV x1. Physical Exam Narrative: General: Alert oriented x3, patient seen sitting up on edge of bed appearing very comfortable. HEENT: Normocephalic, atraumatic, EOMI, breathing normally, obese female Cardio: Regular rate rhythm, normal S1-S2, no murmurs, Mediport in place, skin around it dry nonerythematous no longer leaking. Respiratory: Good bilateral air entry, no wheezes no rhonchi appreciated GI: Abdomen soft, nontender, bulky abdomen, bowel sounds + Behavior: Appropriate and cooperative Extremities: Trace to 2+ edema bilateral lower extremities, no cyanosis TS Data Studies Completed and Pending Pending at discharge Category Date Time Status ABO/Rh Type Routine Lab 08/11/21 13:13 Received Blood Culture Stat Lab 08/08/21 21:29 Results C Reactive Protein AM LABS Lab 08/12/21 04:00 Ordered CBC Auto Diff [Complete Blood Count w/Auto] Routine Lab 08/11/21 17:51 Ordered Complete Blood Count w/Auto AM LABS Lab 08/12/21 04:00 Ordered Complete Crossmatch Routine Lab 08/11/21 13:13 Received Comprehensive Metabolic Panel AM LABS Lab 08/12/21 04:00 Ordered Creatine Phosphokinase AM LABS Lab 08/12/21 04:00 Ordered Lactate (Lactic Acid level) AM LABS Lab 08/12/21 04:00 Ordered Magnesium AM LABS Lab 08/12/21 04:00 Ordered PRBC [Leukocyte Reduced RBC] Routine Lab 08/11/21 12:53 Ordered Phosphorus AM LABS Lab 08/12/21 04:00 Ordered Platelets Leuko-Reduced Routine Lab 08/11/21 13:13 Received Procalcitonin AM LABS Lab 08/12/21 04:00 Ordered Type and Screen Routine Lab 08/11/21 12:53 [place] [id number] Stat Ultrasound 08/11/21 12:44 Ordered US venous duplex lower extremity bilat [CV venous Ultrasound 08/11/21 12:44 [place] [id number]] Stat Labs from last 24 hours 08/11/21 08/11/21 08/11/21 03:27 03:27 03:27 WBC 5.0 RBC 2.51 L Hgb 7.2 L Hct 23.0 L MCV 91.6 MCH 28.7 MCHC 31.3 RDW 16.8 H Plt Count 27 L* MPV 10.0 Neut % (Auto) 56.4 Lymph % (Auto) 33.7 [place] % (Auto) 8.9 Eos % (Auto) 0.2 Baso % (Auto) 0.0 Neut # (Auto) 2.79 Lymph # (Auto) 1.7 [place] # (Auto) 0.4 Eos # (Auto) 0.0 Baso # (Auto) 0.0 Nucleated RBC % (auto) 0 Nucleated RBCs # 0.0 Sodium 139 Potassium 4.0 Chloride 110 H Carbon Dioxide 20 L Anion Gap 13.0 BUN 10 Creatinine 0.8 GFR Calculation Not Reportable Glucose 121 H Calculated Osmolality 288 Lactate 0.8 Calcium 7.9 L Phosphorus 2.8 Magnesium 1.7 Total Bilirubin 0.3 AST 36 H ALT 28 Alkaline Phosphatase 66 Creatine Kinase 32 C-Reactive Protein 140.3 H Total Protein 4.9 L Albumin 2.5 L Globulin 2.4 Procalcitonin 0.46 Completed Studies During Hospitalization Category Date Time Status CT abdomen pelvis w con* [id number] Stat Cat Scan 08/09/21 00:16 Completed XR chest 1V portable [id number] Urgent Exams 08/08/21 20:31 Completed Laboratory Last Values WBC 5.0 10^3/uL (4.0-10.0) 08/11/21 03:27 RBC 2.51 10^6/uL (4.1-5.3) L 08/11/21 03:27 Hgb 7.2 g/dL (11.5-15.3) L 08/11/21 03:27 Hct 23.0 % (37.0-47.0) L 08/11/21 03:27 MCV 91.6 fl (81-99) 08/11/21 03:27 MCH 28.7 pg (28.0-34.0) 08/11/21 03:27 MCHC 31.3 g/dL (30.0-36.0) 08/11/21 03:27 RDW 16.8 % (12.1-15.1) H 08/11/21 03:27 Plt Count 27 10^3/cmm (130-400) L* 08/11/21 03:27 MPV 10.0 fL (7.4-10.4) 08/11/21 03:27 Neut % (Auto) 56.4 % 08/11/21 03:27 Lymph % (Auto) 33.7 % 08/11/21 03:27 [place] % (Auto) 8.9 % 08/11/21 03:27 Eos % (Auto) 0.2 % 08/11/21 03:27 Baso % (Auto) 0.0 % 08/11/21 03:27 Neut # (Auto) 2.79 10^3/uL (1.8-7.7) 08/11/21 03:27 Lymph # (Auto) 1.7 10^3/uL (0.8-4.8) 08/11/21 03:27 [place] # (Auto) 0.4 10^3/uL (0.2-0.9) 08/11/21 03:27 Eos # (Auto) 0.0 10^3/uL (0.0-0.8) 08/11/21 03:27 Baso # (Auto) 0.0 10^3/uL (0.0-0.1) 08/11/21 03:27 Nucleated RBC % (auto) 0 % 08/11/21 03:27 Nucleated RBCs # 0.0 /100WBC 08/11/21 03:27 PT 15.30 SECONDS (12.1-14.9) H 08/09/21 02:20 INR 1.18 (0.8-1.2) 08/09/21 02:20 Sodium 139 mmol/L (136-145) 08/11/21 03:27 Potassium 4.0 mmol/L (3.5-5.1) 08/11/21 03:27 Chloride 110 mmol/L (98-107) H 08/11/21 03:27 Carbon Dioxide 20 mmol/L (22-29) L 08/11/21 03:27 Anion Gap 13.0 (5-19) 08/11/21 03:27 BUN 10 mg/dL (8-23) 08/11/21 03:27 Creatinine 0.8 mg/dL (0.5-0.9) 08/11/21 03:27 GFR Calculation Not Reportable 08/11/21 03:27 Glucose 121 mg/dL (65-115) H 08/11/21 03:27 Calculated Osmolality 288 mOsm/kg (285-295) 08/11/21 03:27 Lactic Acid 1.0 mmol/L (0.5-2.2) 08/08/21 20:15 Lactate 0.8 mmol/L (0.5-2.2) 08/11/21 03:27 Calcium 7.9 mg/dL (8.5-10.5) L 08/11/21 03:27 Phosphorus 2.8 mg/dL (2.5-4.5) 08/11/21 03:27 Magnesium 1.7 mg/dL (1.7-2.3) 08/11/21 03:27 Total Bilirubin 0.3 mg/dL (0.15-1.2) 08/11/21 03:27 AST 36 U/L (0-32) H 08/11/21 03:27 ALT 28 U/L (0-33) 08/11/21 03:27 Alkaline Phosphatase 66 IU/L (35-105) 08/11/21 03:27 Creatine Kinase 32 U/L (26-192) 08/11/21 03:27 C-Reactive Protein 140.3 mg/L (0.0-4.9) H 08/11/21 03:27 Total Protein 4.9 g/dL (6.6-8.7) L 08/11/21 03:27 Albumin 2.5 g/dL (3.5-5.2) L 08/11/21 03:27 Globulin 2.4 g/dL (1.3-4.6) 08/11/21 03:27 Procalcitonin 0.46 ng/mL (0-0.5) 08/11/21 03:27 TSH 2.15 uIU/mL (0.27-4.20) 08/09/21 02:20 Urine Color Yellow (Yellow) 08/09/21 00:10 Urine Appearance Sl cloudy (CLEAR) A 08/09/21 00:10 Urine pH 7 (5-7) 08/09/21 00:10 Ur Specific [place] 1.010 (1.005-1.030) 08/09/21 00:10 Urine Protein 3+ (Negative) H 08/09/21 00:10 Urine Glucose (UA) Norm (Normal) 08/09/21 00:10 Urine Ketones Negative (Negative) 08/09/21 00:10 Urine Blood 3+ (Negative) H 08/09/21 00:10 Urine Nitrate Positive (Negative) H 08/09/21 00:10 Urine Bilirubin Neg (Negative) 08/09/21 00:10 Urine Urobilinogen Norm mg/dL (Negative) 08/09/21 00:10 Ur Leukocyte Esterase 2+ (Negative) H 08/09/21 00:10 Urine RBC >100 /hpf (0-2) H 08/08/21 23:17 Urine WBC >100 /hpf (0-5) H 08/08/21 23:17 Ur Squamous Epith Cells 55-80 /hpf (0-5) H 08/08/21 23:17 Amorphous Sediment Not Reportable 08/08/21 23:17 Urine Bacteria 4+ /hpf (NONE) H 08/08/21 23:17 Coronavirus 229E (PCR) Not detected (NOT DETECT) 08/08/21 20:30 SARS-CoV-2 (PCR) Not detected (NOT DETECT) 08/08/21 20:30 Radiology Impressions Chest X-Ray 08/08/21 20:31 IMPRESSION: 1. No obvious acute consolidation. Suboptimal lung base assessment. Followup including lateral view may be obtained if clinically indicated. 2. Tortuous and prominent thoracic aorta. See discussion above. Abdomen/Pelvis CT 08/09/21 00:16 IMPRESSION: 1. Interval placement of left double pigtail ureteral stent. 2. Interval placement of right double pigtail ureteral stent. 3. Interval placement of IVC filter. 4. 5.2 x 4.8 x 4.2 cm left ovary. 5. Anastomosis in the rectum most consistent with previous partial resection. COMMENTS: For patients with an IVC filter, recommend assessment for a management plan for the patient's IVC filter. If there is no established management plan, recommend referral to an interventional clinician on a nonemergent basis for evaluation. Recent Clincial Data Last Vital Signs Temp 97.5 F L 08/11/21 12:00 Pulse 85 08/11/21 12:00 Resp 16 08/11/21 12:00 BP 135/82 08/11/21 12:00 Pulse Ox 98 08/11/21 12:00 Vital Signs Temp Pulse Resp BP Pulse Ox 08/11/21 12:00 97.5 F L 85 16 135/82 98 08/11/21 08:00 97.7 F 75 16 136/78 97 08/11/21 04:00 98.5 F 77 18 169/108 98 Intake & Output/Weight 08/09/21 08/10/21 08/11/21 08/12/21 06:59 06:59 06:59 06:59 Intake Total 220 / 220 3141.667 / 3141.667 2363.333 / 2363.333 340 / 340 Output Total 400 / 400 1900 / 1900 Balance -180 / -180 1241.667 / 6792.116 2153.333 / 2363.333 340 / 340 Weight 105.233 kg Vitals Last Vital Signs Temp 97.5 F L 08/11/21 12:00 Pulse 85 08/11/21 12:00 Resp 16 08/11/21 12:00 BP 135/82 08/11/21 12:00 Pulse Ox 98 08/11/21 12:00 TS Medications Medications Acetaminophen (Acetaminophen 325 Mg Tablet) 650 mg PO Q6H PRN PRN Reason: Mild/Mod Pain Or Temp >/= 101 Hydrocodone Bitart/Acetaminophen (Hydrocodone-Acetaminophen 5-325 Mg Tablet) 1 tab PO Q4H PRN PRN Reason: Pain Last Admin: 08/11/21 01:41 Dose: 1 tab Documented by: Duloxetine HCl (Duloxetine 30 Mg Capsule) 30 mg PO BID ANGIE Last Admin: 08/11/21 09:33 Dose: Not Given Documented by: Fluconazole (Fluconazole 100 Mg Tablet) 150 mg PO ONCE ONE Stop: 08/11/21 13:47 Furosemide (Furosemide 10 Mg/Ml Sdv 2ml) 20 mg IVP ONCE ONE Stop: 08/11/21 13:48 Levofloxacin/Dextrose (Levaquin-D5w) 500 mg in 100 mls @ 100 mls/hr IV Q24H ANGIE; Protocol Naloxone HCl (Naloxone 0.4 Mg/Ml Sdv) 0.1 mg IVP Q2M PRN PRN Reason: OPIATERV Ondansetron HCl (Ondansetron 2 Mg/Ml Sdv 2 Ml) 4 mg IVP Q8H PRN PRN Reason: vomiting, or N/V if npo Pantoprazole Sodium (Pantoprazole 40 Mg Sdv) 40 mg IVP Q24H ANGIE Last Admin: 08/11/21 01:41 Dose: Not Given Documented by: Promethazine HCl (Promethazine 25 Mg/Ml Sdv 1 Ml) 12.5 mg IM Q6H PRN PRN Reason: NAUSEA Tramadol HCl (Tramadol 50 Mg Tablet) 50 mg PO TID PRN PRN Reason: Pain Discontinued Medications Acetaminophen (Acetaminophen 500 Mg Tablet) 1,000 mg PO ONCE ONE Stop: 08/08/21 20:48 Last Admin: 08/08/21 21:22 Dose: 1,000 mg Documented by: Lidocaine HCl 15 ml/ Al Hydrox /Mg Hydrox/Simethicone 30 ml/Sucralfate 1 gm 0 ml PO ONCE ONE Stop: 08/08/21 21:32 Last Admin: 08/08/21 22:40 Dose: 1 suspension Documented by: Cefepime HCl 2,000 mg/ Sodium (Chloride) 50 mls @ 100 mls/hr IV ONCE ONE; Protocol Stop: 08/08/21 21:15 Last Infusion: 08/08/21 21:40 Dose: Infused Documented by: Magnesium Sulfate (Magnesium Sulfate Premix) 2 gm in 50 mls @ 50 mls/hr IV ONCE ONE Stop: 08/08/21 22:26 Last Infusion: 08/09/21 05:00 Dose: Infused Documented by: Potassium Chloride (K-Carlyle Premix) 100 mls @ 50 mls/hr IV ONCE ONE Stop: 08/08/21 23:26 Last Admin: 08/08/21 22:43 Dose: 50 mls/hr Documented by: Sodium Chloride (Sodium Chloride 0.9%) 1,000 mls @ 100 mls/hr IV .Q10H ANGIE Last Admin: 08/08/21 22:42 Dose: 100 mls/hr Documented by: Imipenem/Cilastatin Sodium 500 (mg/ Sodium Chloride) 100 mls @ 200 mls/hr IV Q6H ANGIE; Protocol Last Admin: 08/11/21 10:50 Dose: 200 mls/hr Documented by: Dextrose/Sodium Chloride (Dextrose 5%-Sod Chloride 0.9%) 1,000 mls @ 100 mls/hr IV .Q10H ANGIE Last Admin: 08/11/21 05:00 Dose: 100 mls/hr Documented by: Potassium Chloride (K-Carlyle Premix) 100 mls @ 50 mls/hr IV ONCE ONE Stop: 08/09/21 17:59 Last Infusion: 08/09/21 19:26 Dose: Infused Documented by: Magnesium Sulfate (Magnesium Sulfate Premix) 2 gm in 50 mls @ 50 mls/hr IV ONCE ONE Stop: 08/09/21 16:59 Last Infusion: 08/10/21 07:27 Dose: Infused Documented by: Potassium Chloride (K-Carlyle) 100 mls @ 25 mls/hr IV ONCE ONE Stop: 08/10/21 12:29 Last Infusion: 08/10/21 14:53 Dose: Infused Documented by: Imipenem/Cilastatin Sodium (Imipenem-Cilastatin 500 Mg Sdv) Confirm Administered Dose 500 mg .ROUTE .STK-MED ONE Stop: 08/10/21 22:17 Last Admin: 08/10/21 23:13 Dose: Not Given Documented by: Iohexol (Iohexol 300 Mg/Ml 100 Ml Btl) 0 ml IV ONCE ONE Stop: 08/09/21 03:00 Last Admin: 08/09/21 03:00 Dose: 75 ml Documented by: Potassium Chloride (Potassium Chloride Er 20 Meq Tablet) 40 meq PO ONCE ONE Stop: 08/08/21 21:28 Last Admin: 08/08/21 22:44 Dose: 40 meq Documented by: Potassium Chloride (Potassium Chloride Er 20 Meq Tablet) 40 meq PO ONCE ONE Stop: 08/09/21 15:44 Last Admin: 08/09/21 16:04 Dose: 40 meq Documented by: Potassium Chloride (Potassium Chloride Oral Liq 20 Meq/15 Ml Udc) 40 meq PO ONCE ONE Stop: 08/10/21 06:10 Last Admin: 08/10/21 07:27 Dose: Not Given Documented by: Potassium Chloride (Potassium Chloride Er 20 Meq Tablet) 40 meq PO ONCE ONE Stop: 08/10/21 06:21 Last Admin: 08/10/21 06:29 Dose: 40 meq Documented by: Potassium Chloride (Potassium Chloride Er 20 Meq Tablet) 40 meq PO BID ANGIE Stop: 08/10/21 18:01 Last Admin: 08/10/21 17:21 Dose: 40 meq Documented by: Allergies No Known Allergies Allergy (Verified 08/06/21 07:56) Home Medications loratadine 10 mg tablet (Claritin) 10 mg PO DAILY PRN 02/14/21 [History Confirmed 08/09/21] dexamethasone 4 mg tablet See Rx Instructions .ROUTE .COMPLEX 07/15/21 [History Confirmed 08/09/21] famotidine 20 mg tablet 20 mg PO DAILY 07/15/21 [History Confirmed 08/09/21] hydrocodone 5 mg-acetaminophen 325 mg tablet 1 tab PO Q4H PRN 07/15/21 [History Confirmed 08/09/21] ondansetron 4 mg disintegrating tablet 4 mg PO Q6H PRN #14 tab 07/15/21 [Rx Confirmed 08/09/21] prochlorperazine maleate 10 mg tablet 10 mg PO Q6H PRN 07/15/21 [History Confirmed 08/09/21] duloxetine 30 mg capsule,delayed release 30 mg PO BID 08/05/21 [History Confirmed 08/09/21] tramadol 50 mg tablet 50 mg PO TID PRN 08/05/21 [History Confirmed 08/09/21] Discharge Plan Discharge Patient Disposition: Home Condition: Stable Prescriptions: No Action loratadine [Claritin] 10 mg Tablet 10 mg PO DAILY PRN (Reason: Allergy Symptoms) 0RF hydrocodone-acetaminophen [[place]] 5-325 mg Tablet 1 tab PO Q4H PRN (Reason: Pain) 0RF prochlorperazine maleate 10 mg Tablet 10 mg PO Q6H PRN (Reason: Nausea) 0RF famotidine 20 mg Tablet 20 mg PO DAILY 0RF dexamethasone 4 mg Tablet See Rx Instructions .ROUTE .COMPLEX 0RF Rx Instructions: take 5 tabs in am of chemotherapy ondansetron 4 mg tablet,disintegrating 4 mg PO Q6H PRN (Reason: nausea and vomiting) Qty: 14 0RF tramadol 50 mg Tablet 50 mg PO TID PRN (Reason: Pain) 0RF duloxetine 30 mg Capsule,Delayed Release(Dr/Ec) 30 mg PO BID 0RF Referrals: Nils Gambino DO [Primary Care Provider] - Patient Instructions: Opioid Safety Transfer Attestations Time Spent in Transfer Care: greater than 30 min Quality Metrics Clinical Quality Measures [ No reported AMI, CVA or VTE this stay] Coding Level of Care Code Acute Counter Sales Person for Chg Fwd Diagnoses Urinary tract infection N39.0 Hypomagnesemia E83.42 Anemia D64.9 Fever of unknown origin R50.9 Acquired immunocompromised state D84.9 Hypokalemia E87.6 Bilateral ureteral obstruction N13.5 Bilateral tubo-ovarian mass N83.8 Right leg DVT I82.401 Bilateral hydronephrosis N13.30 Ovarian mass, left N83.8 Port-A-Cath in place Z95.828
[2021-08-11] MEDS: FUROsemide 10 mg/mL SDV 2mL 20 MG IVP (14:14)
[2021-08-11] MEDS: fluconazole 100 mg Tablet 150 MG PO (14:15)
[2021-08-11] MEDS: levofloxacin-dextrose 5 % 500 MG/100 ML PREMIX 100 MG IV (14:29)
[2021-08-11 16:00] VITALS: BP 134/79; PULSE 100; RESP 17; TEMP 36.7; O2SAT 95
[2021-08-11 18:10] LABS: Basophils % 0.2 %; Eosinophils % 0.2 %; Hematocrit 27.7 % (37.0-47.0); Hemoglobin 8.8 g/dL (11.5-15.3); Lymphocytes # 2.1 10^3/uL (0.8-4.8); Lymphocytes % 32.6 %; Mean Corpuscular HGB Conc 31.8 g/dL (30.0-36.0); Mean Corpuscular Hemoglobin 29.1 pg (28.0-34.0); Mean Corpuscular Volume 91.7 fl (81-99); Mean Platelet Volume 11.2 fL (7.4-10.4); Monocytes # 0.4 10^3/uL (0.2-0.9); Monocytes % 6.2 %; Neutrophils # 3.94 10^3/uL (1.8-7.7); Neutrophils % 59.9 %; Nucleated Red Blood Cells % 0 %; Platelet Count 32 10^3/cmm (130-400); Red Blood Count 3.02 10^6/uL (4.1-5.3); Red Cell Distribution Width 16.7 % (12.1-15.1); White Blood Count 6.6 10^3/uL (4.0-10.0)
[2021-08-11 20:11] VITALS: BP 134/79; PULSE 100; RESP 17; TEMP 36.7; O2SAT 95
== END 2021-08-11 19:30 | disposition short-term general hospital (02) | DRG 690 ==
LOC: ER 08-09 00:16 → MEDSURG 08-09 00:28
PROVIDERS: Admitting Provider Family Medicine; Emergency Provider Emergency Medicine; PCP Family Medicine; Visit Provider Internal Medicine
DX: N39.0 Urinary tract infection, site not specified (principal); E46 Unspecified protein-calorie malnutrition; K52.1 Toxic gastroenteritis and colitis; D84.9 Immunodeficiency, unspecified; N17.9 Acute kidney failure, unspecified; D64.9 Anemia, unspecified; Z86.718 Personal history of other venous thrombosis and embolism; Z95.828 Presence of other vascular implants and grafts; Z96.82 Presence of neurostimulator; C54.1 Malignant neoplasm of endometrium; Z79.899 Other long term (current) drug therapy; W19.XXXA Unspecified fall, initial encounter; Z96.653 Presence of artificial knee joint, bilateral; Z87.891 Personal history of nicotine dependence; E87.6 Hypokalemia; N13.1 Hydronephrosis with ureteral stricture, not elsewhere classified; E83.42 Hypomagnesemia; Z79.891 Long term (current) use of opiate analgesic; Z85.72 Personal history of non-Hodgkin lymphomas; Z68.39 Body mass index [BMI] 39.0-39.9, adult; T45.1X5A Adverse effect of antineoplastic and immunosuppressive drugs, initial encounter; B95.2 Enterococcus as the cause of diseases classified elsewhere; Z66 Do not resuscitate; D69.59 Other secondary thrombocytopenia
CPT/HCPCS: 36430; 36591; 71045; 74177; 80048; 80053; 81001; 81003; 82274; 82550; 83605; 83630; 83735; 84100; 84145; 84443; 85025; 85610; 86140; 86850; 86900; 86920; 87040; 87077; 87086; 87186; 87493; 87506; 87635; 93925; 96365; 96366; 96367; 97110; 97161; 97165; 99285; C9113; J0692; J0743; J1940; J1956; J3475; J3480; J7030; P9016; Q9967

== ENCOUNTER → 2021-08-15 09:50 | Outpatient (BNVA) | payer MEDICARE, OTHER, SELFPAY | PROVIDERS: PCP Family Medicine; Visit Provider Family Medicine | DX: E87.6 Hypokalemia (principal) | CPT/HCPCS: 85025 ==

== ENCOUNTER 2021-08-31 18:10 | Inpatient (IN) | payer MEDICARE, OTHER, SELFPAY ==
[2021-08-31 19:15] VITALS: BMI 57.1
[2021-08-31 19:23] VITALS: BP 123/66; PULSE 110; RESP 18; TEMP 36.4; O2SAT 93
[2021-08-31 22:01] VITALS: BP 146/96; PULSE 106; RESP 20; O2SAT 96
--- NOTE | 2021-08-31 22:15 | W.ED.GENADLT ---
HPI - General Adult General: Chief complaint: Weakness Stated complaint: possible dehydration/sent to ER per Dr. Baez Time Seen by Provider: 08/31/21 21:47 History of Present Illness: Patient is a 76-year-old female with a history of uterine cancer (last chemo was 07/29/2021) who presents the emergency room with concerns for dehydration vaginal bleeding. Patient tells me that since yesterday she has had 3 episodes of vaginal spotting. Patient reports aurelio she has had poor appetite. 3 weeks ago, patient was admitted to [facility] for rehydration. For the last 3 days, patient has had generalized weakness. Earlier today, patient called her oncologist Dr. Baez from [facility] was told to come to the emergency room for rehydration. Patient denies any fever chills, cough runny nose sore throat, passage of heavy vaginal bleeding large clots, or urinary complaints. Patient reports loose stool earlier today. Denies any melena/hematochezia. Patient reports that she also has had been having intermittent colicky lower abdominal pain for the day with associated nausea. Patient denies any chronic history of lower abdominal pain. Onset:acute on chronic since 3 days ago Duration:3 days Location:home Severity:moderate Associated symptoms: Reports nausea; Deny chest pain, dyspnea, rash, palpitations or vomiting Review of Systems Const: Denies: fever(s) or chills Eyes: Denies: change in vision ENMT: Denies: mouth pain Card: Denies: chest pain or palpitations Resp: Denies: dyspnea or non-productive cough GI: Reports: abdominal pain (+lower abd pain), nausea and other (+decreased appetite); Denies: vomiting or diarrhea (+loose stool x 1 episoe) : Denies: dysuria Musc: Denies: extremity pain Skin/Breast: Denies: rash or new lesions Neuro: Denies: weakness in extremities Psych: Reports: other (Normal mood) Wally/Lymph: Denies: easy bruising PFSH ED PFSH: Medical History Diffuse large B cell lymphoma Port-A-Cath in place Status post insertion of nerve stimulator Surgical History H/O cataract extraction bilateral eyes H/O tubal ligation History of colon resection History of left knee replacement History of removal of Port-a-Cath History of total right knee replacement S/P cholecystectomy Family History Mother , at age Hypertension Cancer pancreatic Father , at age 72 Colon cancer 72 Denies family history of Ovarian cancer Diabetes Clotting disorder Heart disease Hyperlipidemia Breast cancer Anesthesia complication Bleeding disorder Uterine cancer Thyroid condition Stroke Social History Smoking and tobacco status: former smoker Second hand smoke exposure: No Alcohol intake: never Adopted: No Caregiver/support person: Yes Lives independently: Yes Household members: significant other Housing: House Marital status: / service: No Current occupational status: retired Current occupational exposures/hazards: No Pets and animals: Yes History of recent travel: No Leisure activites: exercise Sexually active: No Current gender identity: Female Cheli/Baptist: Protestant Physical Exam Const: COMMON NORMALS: alert HENMT: COMMON NORMALS: atraumatic HEAD & SCALP: atraumatic MOUTH: moist mucous membranes abnormal Eye: COMMON NORMALS: EOMs intact bilaterally and conjunctivae normal CONJUNCTIVA: Yes conjunctivae normal Neck/C-Spine: COMMON NORMALS: full ROM and supple Resp: COMMON NORMALS: normal respiratory effort and clear to auscultation bilaterally AUSCULTATION: clear to auscultation bilaterally Cardio: RATE: tachycardic GI: COMMON NORMALS: Soft to palpation and non-tender PALPATION: Yes Soft to palpation OTHER: No focal TTP. NO guarding rebound, guarding, rigidity. No CVA tenderness to percussion. Neg Shields/Neg McBurney's point tenderness, no suprabupic tenderness to palpation. Extremity: COMMON NORMALS: full ROM Neuro: SENSORIUM/ORIENTATION: Yes alert MOTOR EXAM: No Abnormal motor strength present and Other motor observations present (no focal motor deficits) Psych: COMMON NORMALS: speech normal SPEECH: Yes normal speech MOOD & AFFECT: Yes euthymic mood Course Vital Signs: Vital signs: Vital Signs Temperature 97.5 F L 08/31/21 19:23 Pulse Rate 106 H 08/31/21 22:01 Respiratory Rate 20 H 08/31/21 22:01 Blood Pressure 146/96 08/31/21 22:01 Pulse Oximetry 96 08/31/21 22:01 MDM - General Adult Medical Decision Making Female with history of uterine cancer presenting to the emergency room with complaints of lower abdominal pain nausea, decreased p.o. intake, generalized weakness loose stool x3 days daily. On exam, patient no focal tenderness palpation. Patient noted to be dry and mildly tachycardic on physical exam. We will obtain basic blood work to evaluate patient for hypomagnesemia/hypokalemia and to rehydrate patient. Case signed out to Dr. Reza. Discharge Plan Discharge Clinical Impression: Dehydration, Decrease in appetite Condition: Stable Prescriptions: No Action loratadine [Claritin] 10 mg Tablet 10 mg PO DAILY PRN (Reason: Allergy Symptoms) 0RF hydrocodone-acetaminophen [[place]] 5-325 mg Tablet 1 tab PO Q4H PRN (Reason: Pain) 0RF prochlorperazine maleate 10 mg Tablet 10 mg PO Q6H PRN (Reason: Nausea) 0RF famotidine 20 mg Tablet 20 mg PO DAILY 0RF dexamethasone 4 mg Tablet See Rx Instructions .ROUTE .COMPLEX 0RF Rx Instructions: take 5 tabs in am of chemotherapy ondansetron 4 mg tablet,disintegrating 4 mg PO Q6H PRN (Reason: nausea and vomiting) Qty: 14 0RF nitrofurantoin macrocrystal 100 mg capsule 100 mg PO BID 7 Days Qty: 14 0RF Rx Instructions: must administer with a meal/food tramadol 50 mg Tablet 50 mg PO TID PRN (Reason: Pain) 0RF duloxetine 30 mg Capsule,Delayed Release(Dr/Ec) 30 mg PO BID 0RF Referrals: Nils Gambino DO [Primary Care Provider] - Coding Level of Care Code ED [employer] 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
[2021-08-31 22:30] VITALS: BP 145/96; PULSE 106; RESP 18; O2SAT 94
[2021-08-31] MEDS: sodium chloride 0.9% 1,000 ML 999 ML IV (22:42)
[2021-08-31 22:46] LABS: Basophils % 0.5 %; Eosinophils # 0.1 10^3/uL (0.0-0.8); Eosinophils % 1.1 %; Hematocrit 31.2 % (37.0-47.0); Hemoglobin 10.3 g/dL (11.5-15.3); Lymphocytes # 2.6 10^3/uL (0.8-4.8); Lymphocytes % 31.3 %; Mean Corpuscular Hemoglobin 30.1 pg (28.0-34.0); Mean Corpuscular Volume 91.2 fl (81-99); Mean Platelet Volume 9.2 fL (7.4-10.4); Monocytes # 0.8 10^3/uL (0.2-0.9); Neutrophils # 4.56 10^3/uL (1.8-7.7); Nucleated Red Blood Cells % 0.4 %; Platelet Count 199 10^3/cmm (130-400); Red Blood Count 3.42 10^6/uL (4.1-5.3); Red Cell Distribution Width 20.1 % (12.1-15.1); White Blood Count 8.3 10^3/uL (4.0-10.0)
[2021-08-31 23:00] VITALS: BP 144/95; PULSE 107; RESP 20; O2SAT 98
[2021-08-31 23:02] LABS: Alanine Aminotransferase 19 U/L (0-33); Albumin Level 3.3 g/dL (3.5-5.2); Alkaline Phosphatase 119 IU/L (35-105); Anion Gap 19.3 (5-19); Aspartate Amino Transferase 19 U/L (0-32); Blood Urea Nitrogen 15 mg/dL (8-23); Calcium 8.2 mg/dL (8.5-10.5); Carbon Dioxide 19 mmol/L (22-29); Chloride 103 mmol/L (98-107); Globulin 3.4 g/dL (1.3-4.6); Glucose 118 mg/dL (65-115); Lipase 9 U/L (13-60); Magnesium 1.6 mg/dL (1.7-2.3); Osmolality Calculated 288 mOsm/kg (285-295); Potassium 3.3 mmol/L (3.5-5.1); Sodium 138 mmol/L (136-145); Total Bilirubin 0.6 mg/dL (0.15-1.2); Total Protein 6.7 g/dL (6.6-8.7)
[2021-08-31] MEDS: lidocaine 2% viscous 15 ML, aluminum-mag hydrox-simethicon 30 ML, sucralfate oral liq 1 GM PO (23:06)
[2021-08-31 23:30] VITALS: BP 123/90; PULSE 105; RESP 20; O2SAT 95
[2021-09-01] VITALS (11 sets, daily range): BP systolic 121–173; BP diastolic 78–115; PULSE 86–103; RESP 16–22; TEMP 36.3–37; O2SAT 91–97
--- NOTE | 2021-09-01 00:27 | CTR_ITS ---
PROCEDURE INFORMATION: Exam: CT Abdomen And Pelvis Without Contrast Exam date and time: 09/01/2021 12:46 AM Age: 76 years old Clinical indication: Nausea and vomiting; Prior surgery; Surgery type: Colon resection. Gb. Chest port. Spinal stimulator. Patient HX: General weakness with n/v. History of lymphoma and ovarian/uterine cancer. ; Additional info: Abd pain, weakness, vomiting TECHNIQUE: Imaging protocol: Computed tomography of the abdomen and pelvis without contrast. Radiation optimization: All CT scans at this facility use at least one of these dose optimization techniques: automated exposure control; mA and/or kV adjustment per patient size (includes targeted exams where dose is matched to clinical indication); or iterative reconstruction. COMPARISON: CT abdomen pelvis w con* [id number] 08/09/2021 12:42 AM RADIATION DOSE METRICS: Total DLP (mGy-cm): 1556.67 FINDINGS: Tubes, catheters and devices: An inferior vena caval filter is present with its apex at the L1 level. This corresponds to the confluence of the left renal vein. There are bilateral double pigtail ureteral stents present. Diaphragm: There is a small hiatal hernia present. Liver: Normal. No mass. Gallbladder and bile ducts: Status post cholecystectomy. Pancreas: Normal. No ductal dilation. Spleen: Normal. No splenomegaly. Adrenal glands: Normal. No mass. Kidneys and ureters: Strandy opacities are seen in the perinephric fascia bilaterally likely representing chronic scarring. Stomach and bowel: Surgical anastomosis seen within the rectosigmoid junction.. There are abnormally dilated small bowel loops present within the abdomen containing fluid and air fluid levels compatible with a small-bowel obstruction. The transition appears to be present within the right flank. Appendix: No evidence of appendicitis. Intraperitoneal space: Unremarkable. No free air. No significant fluid collection. Vasculature: Calcifications are seen in the abdominal aorta, iliac arteries and femoral arteries bilaterally. Lymph nodes: Unremarkable. No enlarged lymph nodes. Urinary bladder: Unremarkable as visualized. Reproductive: Status post hysterectomy. Bones/joints: There is stable severe anterior wedge compression of L1 vertebral body. There is acute mild compression of T11 vertebral body, finding that appears new compared with 08/09/2021. Soft tissues: See Stomach and bowel finding. CT/CT abdomen pelvis wo con [id number] IMPRESSION: 1. Dilated small bowel loops containing fluid and air fluid levels compatible with a small-bowel obstruction. The transition appears to be present within the right flank. 2. Stable inferior vena caval filter compared with 08/09/2021. 3. Stable bilateral double pigtail ureteral stents 4. Stable severe anterior wedge compression of L1 vertebral body. 5. New acute mild compression of T11 vertebral body compared with 08/09/2021. 6. Small hiatal hernia COMMENTS: For patients with an IVC filter, recommend assessment for a management plan for the patient's IVC filter. If there is no established management plan, recommend referral to an interventional clinician on a nonemergent basis for evaluation.
[2021-09-01 01:12] LABS: Add Urine Microscopic? YES; Bilirubin Urine 1+ (Negative); Blood Urine 3+ (Negative); Glucose Urine UA Norm (Normal); Ketones Urine 1+ (Negative); Leukocyte Esterase Urine 2+ (Negative); Nitrate Urine Negative (Negative); Protein Urine 3+ (Negative); Urine Appearance Cloudy (CLEAR); Urine Color Brown (Yellow); Urobilinogen Urine 4 mg/dL (Negative); pH Urine 5 (5-7)
[2021-09-01 01:15] LABS: Add Urine Culture? Yes; Bacteria Urine 2+ /hpf; Mucus Urine 1+ /hpf; RBC Urine TOO NUMEROUS TO CNT /hpf (0-2); Transitional Epi Cells Urine 0-4 /hpf; WBC Urine 80-100 /hpf (0-5)
--- NOTE | 2021-09-01 01:47 | XRR_ITS ---
PROCEDURE INFORMATION: Exam: XR Chest Exam date and time: 09/01/2021 2:19 AM Age: 76 years old Clinical indication: Device placement; Ng tube; Prior surgery; Surgery type: Spinal stimulator; Patient HX: Check S/P ng placement TECHNIQUE: Imaging protocol: Radiologic exam of the chest. Views: 1 view. COMPARISON: CR (CHEST, ) 08/08/2021 8:53 PM FINDINGS: Tubes, catheters and devices: A nasogastric tube is placed with its tip in the proximal stomach. MediPort catheter is placed via the right subclavian vein with its tip at the level of the superior cavoatrial junction. Lungs: A shallow breath is been obtained with some crowding of the pulmonary vasculature seen as result. Pleural spaces: Unremarkable. No pleural effusion. No pneumothorax. Heart/Mediastinum: Unremarkable. No cardiomegaly. Bones/joints: Unremarkable. XR/XR chest 1V portable [id number] IMPRESSION: 1. Nasogastric tube tip in proximal stomach. 2. There are no acute chest findings.
[2021-09-01] MEDS: cetacaine Spray 5 gm Can 1 SPRAY TOPICAL (02:00)
--- NOTE | 2021-09-01 02:20 | P.HP_ITS ---
Providers/Chief Complaint Admitting Physician: Denzel Bell MD Primary Care Provider: Nils Gambino DO Chief Complaint: possible dehydration/sent to ER per Dr. Baez History of Present Illness Francie Levine is a 76 year old female with past medical history of Ca ovary s/p chemotherapy (last session done in Jul, 2021 ) right lower extremity DVT, s/p IVC filter, because he was not able to tolerate anticoagulation, history of B/L ureteral stent due to KAT related to ovarian mass compression resulting in bilateral hydronephrosis came in with chief complaint of lower abdominal pain nausea vomiting. Patient also has 3 episodes of vaginal spotting since yesterday. Currently she denies any fever chest pain shortness of breath cough, headache confusion,BRBPR, melena. Upon arrival in the ER she was worked up for above-mentioned complaint: Pertinent imaging studies: CT abdomen pelvis wo con:Dilated small bowel loops containing fluid and air fluid levels compatible with a small-bowel obstruction. The transition appears to be present within the right flank.?Stable severe anterior wedge compression of L1 vertebral body. New acute mild compression of T11 vertebral body compared with 08/09/2021. Pertinent labs: WBC 8.3, H&H 10.3 / 31.2 PLT : 199 , serum sodium 138 serum potassium 3.3, serum bicarb 19, anion gap 19, BUN and serum creatinine 15 and 0.8, total bilirubin 0.6, AST 19 ALT 19 ALP 119, lipase 9 Urinalysis: Urine protein 3+, urine leukocyte esterase 2+, urine WBC: 80-100, bacteria 2+, urine nitrate negative NG tube was placed in ER: Patient was given 2 L normal saline bolus. Review of Systems General: Reports: 10 or more systems reviewed and unremarkable except in HPI and below Narrative: 66-year-old currently not in acute distress being admitted for chest pain evaluation Const: Denies: fever(s) or chills Card: Denies: palpitations, edema, swelling of feet/ankles, dyspnea on exertion, orthopnea or leg pain with exertion Resp: Denies: dyspnea, productive cough, wheezing or pain on inspiration GI: Reports: abdominal pain, nausea and vomiting; Denies: diarrhea or constipation : Denies: flank pain Medications/Allergies Home Medications Medication Instructions Recorded Confirmed Last Taken Type loratadine 10 mg tablet (Claritin) 10 mg PO DAILY PRN 02/14/21 08/09/21 08/08/21 History dexamethasone 4 mg tablet See Rx Instructions .ROUTE .COMPLEX 07/15/21 08/09/21 08/06/21 History famotidine 20 mg tablet 20 mg PO DAILY 07/15/21 08/09/21 08/08/21 10:00 History hydrocodone 5 mg-acetaminophen 325 1 tab PO Q4H PRN 07/15/21 08/09/21 08/07/21 History mg tablet ondansetron 4 mg disintegrating 4 mg PO Q6H PRN #14 tab 07/15/21 08/09/21 08/06/21 Rx tablet prochlorperazine maleate 10 mg 10 mg PO Q6H PRN 07/15/21 08/09/21 08/06/21 History tablet duloxetine 30 mg capsule,delayed 30 mg PO BID 08/05/21 08/09/21 08/08/21 History release tramadol 50 mg tablet 50 mg PO TID PRN 08/05/21 08/09/21 08/06/21 History nitrofurantoin macrocrystal 100 mg 100 mg PO BID 7 Days #14 cap 08/30/21 Unknown Rx capsule Allergies Allergy/AdvReac Type Severity Reaction Status Date / Time No Known Allergies Allergy Verified 08/06/21 07:56 PFSH Acute PFSH: Medical History Diffuse large B cell lymphoma Port-A-Cath in place Status post insertion of nerve stimulator Surgical History H/O cataract extraction bilateral eyes H/O tubal ligation History of colon resection History of left knee replacement History of removal of Port-a-Cath History of total right knee replacement S/P cholecystectomy Family History Mother , at age Hypertension Cancer pancreatic Father , at age 72 Colon cancer 72 Denies family history of Ovarian cancer Diabetes Clotting disorder Heart disease Hyperlipidemia Breast cancer Anesthesia complication Bleeding disorder Uterine cancer Thyroid condition Stroke Social History Smoking and tobacco status: former smoker Second hand smoke exposure: No Alcohol intake: never Adopted: No Caregiver/support person: Yes Lives independently: Yes Household members: significant other Housing: House Marital status: / service: No Current occupational status: retired Current occupational exposures/hazards: No Pets and animals: Yes History of recent travel: No Leisure activites: exercise Sexually active: No Current gender identity: Female Cheli/Tenriism: Yazidi Vitals/I&O/Wt Last Vital Signs Temp 97.5 F L 08/31/21 19:23 Pulse 98 09/01/21 01:00 Resp 19 H 09/01/21 01:00 BP 121/78 09/01/21 01:00 Pulse Ox 95 09/01/21 01:00 Weight last 48 hrs Weight 151.046 kg Physical Exam Const: COMMON NORMALS: patient oriented x3 HENMT: COMMON NORMALS: normocephalic and atraumatic HEAD & SCALP: normocephalic and atraumatic Resp: COMMON NORMALS: clear to auscultation bilaterally EFFORT & INSPECTION: Yes symmetric chest movement AUSCULTATION: clear to auscultation bilaterally Cardio: COMMON NORMALS: regular rate, regular rhythm, S1 normal heart sound present, S2 normal heart sound present, No gallops present (Cardio), No murmurs present (Cardio), No rub (Cardio) and Peripheral pulses 2+ throughout RATE: regular rate RHYTHM: regular rhythm HEART SOUNDS: S1 normal heart sound present and S2 normal heart sound present PERIPHERAL PULSES: Peripheral pulses 2+ throughout GI: COMMON NORMALS: Normal to inspection, nondistended, normoactive bowel sounds present, Soft to palpation, non-tender, No hepatosplenomegaly present and no masses AUSCULTATION: Yes normoactive bowel sounds PALPATION: Yes Soft to palpation and Yes No hepatosplenomegaly present RECTAL EXAM: deferred Neuro: COMMON NORMALS: patient oriented x3 Data : 09/01/21 03:48 09/01/21 03:48 A&P Assessment and plan (1) Dehydration: Status: Acute (2) Urinary tract infection: Status: Acute (3) Ovarian mass, left: Status: Acute (4) Hypokalemia: Status: Acute (5) Small bowel obstruction: Status: Acute Plan 76 year old female with past medical history of Ca ovary s/p chemotherapy (last session done in Jul, 2021 ) right lower extremity DVT, s/p IVC filter, because he was not able to tolerate anticoagulation, history of B/L ureteral stent due to KAT related to ovarian mass compression resulting in bilateral hydronephrosis came in with chief complaint of lower abdominal pain nausea vomiting. Patient also has 3 episodes of vaginal spotting since yesterday. Assessment: small-bowel obstruction UTI Dehydration Hypokalemia Hypomagnesemia right lower extremity DVT, s/p IVC Ca ovary s/p chemotherapy Plan: NG tube in place, on low intermittent suction Continue IV hydration with normal saline Pain control Zofran Monitor and replace electrolytes Follow urine culture Continue ceftriaxone for now Surgery has been consulted by ER CODE STATUS: AND DVT prophylaxis: On Lovenox Attestations Medical Necessity Statement*: Patient needs to be in hospital for the management of SBO. Anticipated LOS Greater then 2 midnights. Time Spent in Patient Care: Greater than 35 minutes (>than 50% of time spent in counselling and/or direct pt care on unit) . Coding Level of Care Code Acute Supervisor Paste Mixing for g Fwd Exam Detailed Diagnoses Dehydration E86.0 Urinary tract infection N39.0 Ovarian mass, left N83.8 Hypokalemia E87.6 Small bowel obstruction K56.609
[2021-09-01] MEDS: enoxaparin 40 mg/0.4 mL Syringe SUBCUT (03:50)
[2021-09-01] MEDS: sodium chloride 0.9% 1,000 ML 999 ML IV (03:50)
[2021-09-01] MEDS: ondansetron 2 mg/ML SDV 2 mL 4 MG IVP (03:59)
[2021-09-01 04:27] LABS: Basophils % 0.3 %; Eosinophils # 0.1 10^3/uL (0.0-0.8); Eosinophils % 0.9 %; Hematocrit 30.3 % (37.0-47.0); Hemoglobin 9.6 g/dL (11.5-15.3); Lymphocytes # 2.4 10^3/uL (0.8-4.8); Lymphocytes % 25.6 %; Mean Corpuscular HGB Conc 31.7 g/dL (30.0-36.0); Mean Corpuscular Hemoglobin 29.8 pg (28.0-34.0); Mean Corpuscular Volume 94.1 fl (81-99); Mean Platelet Volume 9.3 fL (7.4-10.4); Monocytes # 1.1 10^3/uL (0.2-0.9); Monocytes % 11.4 %; Neutrophils # 5.54 10^3/uL (1.8-7.7); Nucleated Red Blood Cells % 0.3 %; Platelet Count 189 10^3/cmm (130-400); Red Blood Count 3.22 10^6/uL (4.1-5.3); Red Cell Distribution Width 20.3 % (12.1-15.1); White Blood Count 9.2 10^3/uL (4.0-10.0)
[2021-09-01] MEDS: sodium chloride 0.9% 1,000 ML 75 ML IV ×2 (04:31→18:24)
[2021-09-01 04:47] LABS: Anion Gap 16.2 (5-19); Blood Urea Nitrogen 14 mg/dL (8-23); Calcium 8.1 mg/dL (8.5-10.5); Carbon Dioxide 25 mmol/L (22-29); Chloride 104 mmol/L (98-107); Glucose 105 mg/dL (65-115); Osmolality Calculated 295 mOsm/kg (285-295); Potassium 3.2 mmol/L (3.5-5.1); Sodium 142 mmol/L (136-145)
--- NOTE | 2021-09-01 06:03 | PM.CONSULT ---
Providers/Reason For Consult Consulting Physician/Specialty*: Corey Marquez MD Reason for Consult*: Bowel obstruction Requesting Physician: Dr. Reza Attending Physician: Denzel Bell MD Primary Care Provider: Nils Gambino DO History of Present Illness History of Present Illness Ms. Francie Levine is a pleasant 76 year old female with history of ovarian cancer, right lower DVT, history of IVC filter placement. History of bilateral ureteral stents due to compression of the ovarian mass with subsequent hydronephrosis on both sides. Patient presented to the ER with the lower abdominal pain associated nausea and vomiting. Further work-up in the ER showed the blood work in the form of; WBC 8.3, H&H 10.3 / 31.2 PLT : 199 , serum sodium 138 serum potassium 3.3, serum bicarb 19, anion gap 19, BUN and serum creatinine 15 and 0.8, total bilirubin 0.6, AST 19 ALT 19 ALP 119, lipase 9 Urinalysis: Urine protein 3+, urine leukocyte esterase 2+, urine WBC: 80-100, bacteria 2+, urine nitrate negative NG tube was placed in ER: Patient was given 2 L normal saline bolus. A CT of the abdomen and pelvis 1. Dilated small bowel loops containing fluid and air fluid levels compatible with a small-bowel obstruction. The transition appears to be present within the right flank. 2. Stable inferior vena caval filter compared with 08/09/2021. 3. Stable bilateral double pigtail ureteral stents 4. Stable severe anterior wedge compression of L1 vertebral body. 5. New acute mild compression of T11 vertebral body compared with 08/09/2021. 6. Small hiatal hernia General surgery was consulted for further evaluation care, she reports that she continues to pass gas and have loose bowel movements. Review of Systems General: Reports: 10 or more systems reviewed and unremarkable except in HPI and below Medications/Allergies Home Medications Medication Instructions Recorded Confirmed Last Taken Type loratadine 10 mg tablet (Claritin) 10 mg PO DAILY PRN 02/14/21 09/01/21 08/08/21 History dexamethasone 4 mg tablet See Rx Instructions .ROUTE .COMPLEX 07/15/21 09/01/21 08/06/21 History famotidine 20 mg tablet 20 mg PO DAILY 07/15/21 09/01/21 08/08/21 10:00 History hydrocodone 5 mg-acetaminophen 325 1 tab PO Q4H PRN 07/15/21 09/01/21 08/07/21 History mg tablet ondansetron 4 mg disintegrating 4 mg PO Q6H PRN #14 tab 07/15/21 09/01/21 08/06/21 Rx tablet prochlorperazine maleate 10 mg 10 mg PO Q6H PRN 07/15/21 09/01/21 08/06/21 History tablet duloxetine 30 mg capsule,delayed 30 mg PO BID 08/05/21 09/01/21 08/08/21 History release tramadol 50 mg tablet 50 mg PO TID PRN 08/05/21 09/01/21 08/06/21 History nitrofurantoin macrocrystal 100 mg 100 mg PO BID 7 Days #14 cap 08/30/21 09/01/21 Unknown Rx capsule Allergies Allergy/AdvReac Type Severity Reaction Status Date / Time No Known Allergies Allergy Verified 09/01/21 12:02 Current Medications Generic Name Dose Route Start Last Admin Trade Name Freq PRN Reason Stop Dose Admin Enoxaparin Sodium 40 mg 09/01/21 02:15 09/01/21 03:50 Enoxaparin 40 Mg/0.4 Ml Syringe SUBCUT 40 mg Q24H ANGIE Administration Sodium Chloride 1,000 mls @ 75 mls/hr 09/01/21 02:15 09/01/21 04:31 Sodium Chloride 0.9% IV 75 mls/hr .[id number] ANGIE Administration Ondansetron HCl 4 mg 09/01/21 02:13 09/01/21 03:59 Ondansetron 2 Mg/Ml Sdv 2 Ml IVP 4 mg Q8H PRN Administration vomiting, or N/V if npo PFSH Acute PFSH: Medical History Diffuse large B cell lymphoma Port-A-Cath in place Status post insertion of nerve stimulator Surgical History H/O cataract extraction bilateral eyes H/O tubal ligation History of colon resection History of left knee replacement History of removal of Port-a-Cath History of total right knee replacement S/P cholecystectomy Family History Mother , at age Hypertension Cancer pancreatic Father , at age 72 Colon cancer 72 Denies family history of Ovarian cancer Diabetes Clotting disorder Heart disease Hyperlipidemia Breast cancer Anesthesia complication Bleeding disorder Uterine cancer Thyroid condition Stroke Social History Smoking and tobacco status: former smoker Second hand smoke exposure: No Alcohol intake: never Adopted: No Caregiver/support person: Yes Lives independently: Yes Household members: significant other Housing: House Marital status: / service: No Current occupational status: retired Current occupational exposures/hazards: No Pets and animals: Yes History of recent travel: No Leisure activites: exercise Sexually active: No Current gender identity: Female Cheli/Mandaeism: Episcopal Vitals/I&O/Wt Last Vital Signs Temp 98.3 F 09/01/21 04:00 Pulse 100 09/01/21 04:00 Resp 17 09/01/21 04:00 BP 142/91 09/01/21 04:00 Pulse Ox 95 09/01/21 04:00 Weight last 48 hrs Weight 333 lb Physical Exam Const: COMMON NORMALS: no acute distress and patient oriented x3 GENERAL APPEARANCE: cooperative ORIENTATION/CONSCIOUSNESS: Yes awake, Yes oriented to person, Yes oriented to place and Yes oriented to time HENMT: COMMON NORMALS: normocephalic HEAD & SCALP: normocephalic and other (NG in place with clear aspirate) Eye: COMMON NORMALS: Equal, round and reactive pupils present and no scleral icterus PUPIL: Yes Equal, round and reactive pupils present Lymph: LYMPHATIC: no lymphadenopathy noted Chest: COMMONS NORMALS: normal inspection of the chest Resp: COMMON NORMALS: normal respiratory effort and clear to auscultation bilaterally AUSCULTATION: clear to auscultation bilaterally Cardio: COMMON NORMALS: S1 normal heart sound present and S2 normal heart sound present; negative for No murmurs present (Cardio) HEART SOUNDS: S1 normal heart sound present and S2 normal heart sound present GI: COMMON NORMALS: Soft to palpation; negative for No hepatosplenomegaly present INSPECTION: Yes normal to inspection PALPATION: Yes Soft to palpation, No Firmness to palpation present (GI), No Tenderness to palpation present (GI), No Guarding due to palpation present (GI), No Rigid due to palpation and No No hepatosplenomegaly present Neuro: COMMON NORMALS: patient oriented x3 SENSORIUM/ORIENTATION: Yes oriented to person, Yes oriented to place and Yes oriented to time Psych: COMMON NORMALS: mental status grossly normal Skin: COMMON NORMALS: no rashes or lesions noted GENERAL SKIN EXAM: no rashes or lesions noted Data : 09/01/21 03:48 09/01/21 03:48 A&P Assessment and plan (1) Small bowel obstruction: After history taking physical examination and reviewing the chart and images with my personal interpretation showing dilated small bowel loops, IVC filter in place and bilateral ureteric stents. likely the patient has an underlying chronic small bowel obstruction. Continue NG to low intermittent wall suction IV fluid resuscitation Correction of electrolytes Strict I's and O's Conservative measures for now Encourage ambulation with assistance Assurance and education All questions have been answered and all concerns have been addressed to patient's satisfaction. Status: Acute Consult Attestations Medical Necessity Statement: Per admitting service Coding Level of Care Code Acute Gravity Meter Operator for [facility] Fwd Exam Comprehensive Diagnoses Small bowel obstruction K56.609
[2021-09-01] MEDS: cefTRIAXone 1,000 MG in sodium chloride 0.9% (plus) 50 ML 100 MG IV (06:33)
--- NOTE | 2021-09-01 07:42 | P.PN_ITS ---
Subjective Subjective: Francie reports she feels weak and nauseous, particularly when she gets up and around. She denies any abdominal pain. She believes her last bowel movement, and passing gas was yesterday. She states her whole illness has been going on at least 1 to 2 weeks with increased weakness, and nausea. Last chemo treatment over 4 weeks ago. History and physical reviewed. Medications: Reviewed: Yes Vitals/I&O/Wt Last Vital Signs Temp 98.3 F 09/01/21 04:00 Pulse 100 09/01/21 04:00 Resp 17 09/01/21 04:00 BP 142/91 09/01/21 04:00 Pulse Ox 95 09/01/21 04:00 Weight last 48 hrs Weight 151.046 kg Weight 151.046 kg Physical Exam Narrative: General exam demonstrates a conversive female in no obvious distress Neck is supple no lymphadenopathy thyromegaly Cardiovascular borderline tachycardia, no murmur Lungs clear no wheezing or crackles Abdomen no obvious distention. Hypoactive bowel sounds. Extremities no cyanosis clubbing. Perhaps trace edema. Neuro: No obvious focal deficits Data : 09/01/21 03:48 09/01/21 03:48 A&P Assessment and plan (1) Small bowel obstruction: Concern of partial small bowel obstruction on CT scan. NG has been placed, to suction Surgery consultation has been entered Hopefully this will resolve with conservative measures. Potential etiology could be previous surgery, pelvic malignancy currently under treatment. Check TSH Status: Acute (2) Urinary tract infection: UTI, present on admission, acute Rocephin 1 g IV every 24 hours currently. Await urine culture CT scan shows bilateral ureteral stents, patent with no evidence of hydronephrosis. Status: Acute (3) Hypokalemia: Supplement potassium. Recheck tomorrow Status: Acute (4) Hypomagnesemia: Repeat magnesium level Status: Acute (5) Ovarian mass, left: It appears patient is being treated for pelvic malignancy, ovarian cancer. Her pathologic diagnosis was poorly differentiated endometrial cancer on pathology here in June. There is also a note somewhere of lymphoma. I will clarify with the patient, although it does not have any significant bearing on her acute treatment today Status: Acute Plan Multiple other medical problems as listed in past medical history Lovenox for DVT prophylaxis Attestations Medical Necessity Statement*: Needs continued hospital stay for electrolyte correction, treatment of small bowel obstruction with conservative measures, IV antibiotics for UTI Coding Level of Care Code Acute Transport Analyst for [facility] Fwd Diagnoses Small bowel obstruction K56.609 Urinary tract infection N39.0 Hypokalemia E87.6 Hypomagnesemia E83.42 Ovarian mass, left N83.8
[2021-09-01 08:06] LABS: Magnesium 1.5 mg/dL (1.7-2.3); Thyroid Stimulating Hormone 2.18 uIU/mL (0.27-4.20)
[2021-09-01] MEDS: lidocaine 1% 5 ML in potassium chloride premix 100 ML 25 ML IV (09:01)
--- NOTE | 2021-09-01 10:43 | PC.CHAP ---
Pastoral Care Encounter/Spiritual Assessment Type of Contact [] Declined supervisor felling bucking visit [] Patient/Family/Request visit [] Outpatient visit [] Follow-up visit [] Physician referral [] Code/Alert [x] Routine visit [] Staff referral [] Actively dying [x] Patient sleeping [] Family support [] [] Out of room [] Palliative care [] [] Receiving care in room [] Pre-surgical visit [] Trauma [] Long length of stay [] ICU visit [] Other: Relational/Emotional Strength [] Patient feels connected with others/family/visitors/staff [] Distress [] Loneliness/isolation [] Abandonment Spirituality of Patient [] Person of Cheli [] Attends Voodoo of their Cheli [] Believes in Prayer [] Reads Bible or Jain materials [] There are Spiritual issues to be addressed Stretcher And Drier Interventions [] Prayer [] Active listening [] Non-anxious presence [] Spiritual/emotional support [] Crisis/trauma care [] Spiritual counseling [] Bereavement support [] Provided bereavement packet [] Provided Bible/devotional materials [] Provided toy/stuffed animal, coloring book to patient or family member [] Provided Communion [] Anointing/[place] [] Salvation [] Completed spiritual assessment [] Other: Impact on Illness or Injury [] Angry [] Fearful [] Anxious [] Often cries [] Exhaustion [] Unable to work [] Unable to attend nondenominational [] Unable to walk/stand [] Unable to read [] Unable to drive [] Unable to eat/drink [] Unable to sleep [] Unable to be with family [] Patient intubated [] Other: Summary Time spent with patient
[2021-09-01] MEDS: magnesium sulfate premix 2 GM/50 ML PIGGYBACK IV (12:48)
--- NOTE | 2021-09-01 19:16 | PC.NURSE ---
Report to Cedrick MURILLO at this time.
[2021-09-02] VITALS (7 sets, daily range): BP systolic 147–159; BP diastolic 81–100; PULSE 75–100; RESP 14–19; TEMP -12.7–36.9; O2SAT 95–98
[2021-09-02] MEDS: enoxaparin 40 mg/0.4 mL Syringe SUBCUT (04:26)
--- NOTE | 2021-09-02 06:11 | PM.PN ---
Subjective Subjective: Patient overall feels better. Continues to pass gas and had a bowel movement yesterday. 200 mL per NG tube. Otherwise no acute events overnight. Medications: Reviewed: Yes Vitals/I&O/Wt Last Vital Signs Temp 9.2 F L 09/02/21 04:00 Pulse 75 09/02/21 04:00 Resp 16 09/02/21 04:00 BP 159/88 09/02/21 04:00 Pulse Ox 96 09/02/21 04:00 09/01/21 09/01/21 09/02/21 14:59 22:59 06:59 Intake Total 205 / 205 1000 / 1205 Output Total 700 / 700 400 / 1100 500 / 1600 Balance -495 / -495 600 / 105 -500 / -395 Weight last 48 hrs Weight 145 lb 8 oz Weight 333 lb Weight 333 lb Physical Exam Narrative: Patient is conscious alert oriented X3 No apparent distress Head and neck examination PERRLA no masses no cervical lymphadenopathy no jaundice NG in place with bilious output Abdomen nontender nondistended soft no organomegaly guarding or rigidity/no signs of peritonitis Data : 09/01/21 03:48 09/01/21 03:48 A&P Assessment and plan (1) Small bowel obstruction: We will plan to clamp NG tube for 2 hours and check residuals thereafter. If less than 200 him and will DC NG tube and start the patient slowly on clear liquid diet Correction of electrolytes Strict I's and O's We will continue conservative measures for now Encourage ambulation with assistance Assurance and education All questions have been answered and all concerns have been addressed to patient's satisfaction. Status: Acute Attestations Medical Necessity Statement*: Per admitting service Coding Level of Care Code Acute Coater Smoking Pipe for g Fwd Diagnoses Small bowel obstruction K56.609
[2021-09-02 06:13] LABS: Basophils # 0.1 10^3/uL (0.0-0.1); Basophils % 0.6 %; Eosinophils # 0.1 10^3/uL (0.0-0.8); Eosinophils % 0.8 %; Hematocrit 28.1 % (37.0-47.0); Hemoglobin 8.8 g/dL (11.5-15.3); Lymphocytes # 2.1 10^3/uL (0.8-4.8); Lymphocytes % 24.6 %; Mean Corpuscular HGB Conc 31.3 g/dL (30.0-36.0); Mean Corpuscular Hemoglobin 29.4 pg (28.0-34.0); Mean Platelet Volume 9.1 fL (7.4-10.4); Monocytes % 11.6 %; Neutrophils # 5.05 10^3/uL (1.8-7.7); Nucleated Red Blood Cells % 0.4 %; Platelet Count 181 10^3/cmm (130-400); Red Blood Count 2.99 10^6/uL (4.1-5.3); Red Cell Distribution Width 20.3 % (12.1-15.1); White Blood Count 8.4 10^3/uL (4.0-10.0)
[2021-09-02 06:34] LABS: Anion Gap 15.3 (5-19); Blood Urea Nitrogen 10 mg/dL (8-23); Calcium 7.8 mg/dL (8.5-10.5); Carbon Dioxide 25 mmol/L (22-29); Chloride 107 mmol/L (98-107); Glucose 91 mg/dL (65-115); Osmolality Calculated 297 mOsm/kg (285-295); Potassium 3.3 mmol/L (3.5-5.1); Sodium 144 mmol/L (136-145)
[2021-09-02] MEDS: sodium chlor 0.9% + KCl 20 mEq 20 MEQ/1,000 ML BAG 50 MEQ IV (07:42)
[2021-09-02] MEDS: cefTRIAXone 1,000 MG in sodium chloride 0.9% (plus) 50 ML 100 MG IV (07:42)
--- NOTE | 2021-09-02 07:54 | P.PN_ITS ---
Subjective Subjective: Ms. Levine was resting comfortably in a chair this morning watching TV. She states she feels like she is able to eat something this morning, and feels the abdominal discomfort has resolved and reports passing gas. Her NG tube was clamped per surgery. She states she could also feels strong enough to attempt to walk short distances. She denies any difficulty breathing or chest discomfort, abdominal pain. She does note that her right let is still swollen. She wants to be able to move around and have something to eat. She reports being able to take ice chips and small sips of water without issue. Medications: Reviewed: Yes Vitals/I&O/Wt Last Vital Signs Temp 97.9 F 09/02/21 07:45 Pulse 98 09/02/21 07:45 Resp 19 H 09/02/21 07:45 BP 154/100 09/02/21 07:45 Pulse Ox 95 09/02/21 07:45 09/01/21 09/02/21 09/02/21 22:59 06:59 14:59 Intake Total 1000 / 1205 50 / 1255 Output Total 400 / 1100 700 / 1800 Balance 600 / 105 -650 / -545 Weight last 48 hrs Weight 65.998 kg Weight 151.046 kg Weight 151.046 kg Physical Exam Narrative: Ms. Levine is a 76 y/o female resting comfortably in her chair. NG tube in right nare, clamped. HEENT: heat atraumatic, normocephalic, normal conjunctiva, no scleral icterus or injection, neck supple, no thyromegaly noted. NEURO: Alert and oriented with normal speech. CV: regular rate and rhythm, heart sounds normal PULM/RESP: lung sounds clear bilaterally, symmetrical chest movement, no acce ssory muscle use or shortness of breath, >90% on room air. GI: abdomen soft, nontender, with hypoactive bowelsounds. : No reported difficulties urinating Extremities: Right lower leg edema, left leg trace edema. Skin: warm, dry, pink, no wounds or trauma. Const: COMMON NORMALS: no acute distress, patient oriented x3 and alert GENERAL APPEARANCE: cooperative, comfortable and well kempt HENMT: COMMON NORMALS: normocephalic, atraumatic and moist oral mucous membranes HEAD & SCALP: normocephalic and atraumatic Eye: COMMON NORMALS: conjunctivae normal CONJUNCTIVA: Yes conjunctivae normal Neck/C-Spine: COMMON NORMALS: full ROM, supple, no JVD and Thyroid normal THYROID: Thyroid normal Chest: COMMONS NORMALS: normal inspection of the chest CHEST: Yes Symmetrical chest wall rise Resp: COMMON NORMALS: normal respiratory effort, No retractions, No use of accessory muscles and clear to auscultation bilaterally AUSCULTATION: clear to auscultation bilaterally Cardio: COMMON NORMALS: no JVD, regular rate, regular rhythm and No murmurs present (Cardio) RATE: regular rate RHYTHM: regular rhythm GI: COMMON NORMALS: Soft to palpation and non-tender AUSCULTATION: Yes Hypoactive bowel sounds present PALPATION: Yes Soft to palpation : COMMON NORMALS: Yes no CVA tenderness BLADDER/KIDNEY EXAM: Yes no CVA tenderness OTHER: Deferred, no reported difficulties with urination Back/Pelvis: COMMON NORMALS: no CVA tenderness Extremity: RIGHT LOWER EXTREMITY: Yes lower leg (edema) Neuro: COMMON NORMALS: patient oriented x3 SENSORIUM/ORIENTATION: Yes alert Psych: COMMON NORMALS: mental status grossly normal, Normal thought process present, cooperative, normal affect and speech normal APPEARANCE: Yes well kempt SPEECH: Yes normal speech THOUGHT PROCESS: Normal thought process present Skin: COMMON NORMALS: no rashes or lesions noted, no wounds, no jaundice, no petechiae and no mottling GENERAL SKIN EXAM: no rashes or lesions noted Data : 09/02/21 05:19 09/02/21 05:19 Other Labs: Ca: 7.8L M.5>1.9 A&P Assessment and plan (1) Small bowel obstruction: Concern of partial small bowel obstruction on CT scan. NG has been placed - Clamped. Surgery has seen the patient - recommends clamping NG and checking residuals. If <200 ml surgery will start patient on clear liquid diet. Hopefully this will resolve with conservative measures. Potential etiology could be previous surgery, pelvic malignancy currently under treatment. TSH normal. Status: Acute (2) Urinary tract infection: UTI, present on admission, acute Rocephin 1 g IV every 24 hours currently. Await urine culture CT scan shows bilateral ureteral stents, patent with no evidence of hydronephrosis. Status: Acute (3) Hypokalemia: Supplement potassium. Patient remains hypokalemic. Change IV fluids to NS with 20 mEq/liter - 50 ml/hr. Supplement with 40 mEq IV K rider as well Recheck with AM labs tomorrow. Status: Acute (4) Hypomagnesemia: Resolved with supplementation. Status: Acute (5) Ovarian mass, left: It appears patient is being treated for pelvic malignancy, ovarian cancer. Her pathologic diagnosis was poorly differentiated endometrial cancer on pathology here in June. There is also a note somewhere of lymphoma. I will clarify with the patient, although it does not have any significant bearing on her acute treatment today Status: Acute Plan Multiple other medical problems as listed in past medical history Lovenox for DVT prophylaxis Attestations Medical Necessity Statement*: Needs continued hospitalization for close monitoring secondary to small bowel obstruction, still requiring NG as well as IV antibiotics for UTI. Coding Level of Care Code Acute Blade Worker for Chg Fwd Exam Comprehensive Diagnoses Small bowel obstruction K56.609 Urinary tract infection N39.0 Hypokalemia E87.6 Hypomagnesemia E83.42 Ovarian mass, left N83.8
[2021-09-02 08:05] LABS: Magnesium 1.9 mg/dL (1.7-2.3)
--- NOTE | 2021-09-02 09:27 | PC.NURSE ---
NG tube removal Ng tube unsecured from nose with alcohol wipes, without difficulty Instructed pt on the count of three to take a deep breath and Ng tube removed at that time. Intact without difficulty pt tolerated well
[2021-09-02] MEDS: lidocaine 1% 5 ML in potassium chloride premix 100 ML 25 ML IV (10:45)
[2021-09-02] MEDS: duloxetine 30 mg Capsule PO (16:55)
--- NOTE | 2021-09-02 19:01 | PC.NURSE ---
Report to night court magistrate Bella MURILLO at this time.
[2021-09-02] MEDS: ondansetron 2 mg/ML SDV 2 mL 4 MG IVP (23:46)
[2021-09-03] VITALS: BP 137/91; PULSE 86; RESP 16; TEMP 36.6; O2SAT 97
[2021-09-03] MEDS: sodium chlor 0.9% + KCl 20 mEq 20 MEQ/1,000 ML BAG 50 MEQ IV (03:17)
[2021-09-03] MEDS: enoxaparin 40 mg/0.4 mL Syringe SUBCUT (03:17)
[2021-09-03 04:00] VITALS: BP 144/87; PULSE 98; RESP 18; TEMP 36.6; O2SAT 91
[2021-09-03 05:26] LABS: Basophils # 0.1 10^3/uL (0.0-0.1); Basophils % 0.6 %; Eosinophils # 0.2 10^3/uL (0.0-0.8); Eosinophils % 1.9 %; Hematocrit 28.2 % (37.0-47.0); Hemoglobin 8.8 g/dL (11.5-15.3); Lymphocytes % 24.8 %; Mean Corpuscular HGB Conc 31.2 g/dL (30.0-36.0); Mean Corpuscular Volume 96.2 fl (81-99); Mean Platelet Volume 8.8 fL (7.4-10.4); Monocytes % 12.1 %; Neutrophils # 4.55 10^3/uL (1.8-7.7); Nucleated Red Blood Cells % 0.3 %; Platelet Count 177 10^3/cmm (130-400); Red Blood Count 2.93 10^6/uL (4.1-5.3)
[2021-09-03 05:44] LABS: Anion Gap 16.7 (5-19); Blood Urea Nitrogen 8 mg/dL (8-23); Calcium 7.7 mg/dL (8.5-10.5); Carbon Dioxide 21 mmol/L (22-29); Chloride 105 mmol/L (98-107); Glucose 91 mg/dL (65-115); Osmolality Calculated 286 mOsm/kg (285-295); Potassium 3.7 mmol/L (3.5-5.1); Sodium 139 mmol/L (136-145)
--- NOTE | 2021-09-03 06:41 | PM.PN ---
Subjective Subjective: Patient seems to be feeling better and tolerating p.o. intake and resuming bowel functions. Medications: Reviewed: Yes Vitals/I&O/Wt Last Vital Signs Temp 97.9 F 09/03/21 04:00 Pulse 98 09/03/21 04:00 Resp 18 09/03/21 04:00 BP 144/87 09/03/21 04:00 Pulse Ox 91 09/03/21 04:00 09/02/21 09/02/21 09/03/21 14:59 22:59 06:59 Intake Total 1050 / 1050 979.167 / 2028.167 Output Total 400 / 400 300 / 700 Balance 650 / 650 -300 / 350 979.167 / 1329.167 Weight last 48 hrs Weight 245 lb 7 oz Weight 145 lb 8 oz Physical Exam Narrative: Patient is conscious alert oriented X3 No apparent distress BMI 42 Head and neck examination PERRLA no masses no cervical lymphadenopathy no jaundice Abdomen nontender nondistended soft no organomegaly guarding or rigidity/no signs of peritonitis Data : 09/03/21 05:17 09/03/21 05:17 A&P Assessment and plan (1) Small bowel obstruction: From surgical standpoint of view condition of small bowel obstruction resolved and I would recommend to advance diet as tolerated. Patient was educated to avoid constipation Patient can be discharged today and follow-up with her surgical gynecology oncology in [place], in fact the patient has an appointment today and I did mention to the staff to reschedule the patient if possible. Please call for any questions or concerns Thank you for consulting general surgery to participate taking care Ms. Levine Status: Resolved Attestations Medical Necessity Statement*: Per admitting service Coding Level of Care Code Acute Transfer Station Attendant for Chg Fwd Diagnoses Small bowel obstruction K56.609
[2021-09-03 08:18] VITALS: BP 142/88; PULSE 98; RESP 16; TEMP 36.7; O2SAT 94
[2021-09-03] MEDS: duloxetine 30 mg Capsule PO (08:56)
[2021-09-03] MEDS: famotidine 20 mg Tablet PO (08:56)
[2021-09-03] MEDS: cefTRIAXone 1,000 MG in sodium chloride 0.9% (plus) 50 ML 100 MG IV (08:57)
--- NOTE | 2021-09-03 09:10 | P.DS_ITS ---
Discharge Providers Date of Admission: 09/01/21 01:48 Date of Discharge: September 03, 2021 Attending Provider at Admission: Denzel Bell MD Attending Provider at Discharge: Real Paul MD Primary Care Provider: Nils Gambino DO Diagnoses at Discharge Discharge Diagnosis (1) Small bowel obstruction: Status: Resolved Reason for Visit Reason for Visit: possible dehydration/sent to ER per Dr. Baez [facility] Hospital Course Francie is a 76-year-old white female who presented to the emergency department with complaints of abdominal pain nausea and vomiting. History, exam, ancillary testing was consistent with partial small bowel obstruction. She has past history of pelvic malignancy. She was placed in the hospital, an NG placed, she was hydrated, urinalysis performed demonstrating UTI so started on antibiotics, and surgery consultation was obtained. With conservative management with NG, bowel obstruction symptomatology went away. She improved to a degree where the NG was removed and diet was initiated on the , and improved so she could be discharged on the . Urinalysis ultimately grew Enterococcus faecalis, and she was discharged on p.o. Cipro. She will follow-up with her primary care provider in 3 to 5 days, her gynecology oncologist, as well as her urologist. Physical Exam Narrative: General exam no distress Neck is supple, no lymphadenopathy thyromegaly Cardiovascular regular rate and rhythm without murmur Lungs clear Abdomen is soft, positive bowel sounds Extremities no cyanosis clubbing or edema Discharge Data Studies Completed and Pending Completed Studies During Hospitalization Category Date Time Status CT abdomen pelvis wo con [id number] Urgent Cat Scan 09/01/21 00:27 Completed XR chest 1V portable [id number] Stat Exams 09/01/21 01:47 Completed Pending at discharge Category Date Time Status Basic Metabolic Panel AM LABS Lab 09/04/21 04:00 Ordered Complete Blood Count w/Auto AM LABS Lab 09/04/21 04:00 Ordered Urine Culture Stat Lab 09/01/21 00:16 Received Radiology Impressions Abdomen/Pelvis CT 09/01/21 00:27 IMPRESSION: 1. Dilated small bowel loops containing fluid and air fluid levels compatible with a small-bowel obstruction. The transition appears to be present within the right flank. 2. Stable inferior vena caval filter compared with 08/09/2021. 3. Stable bilateral double pigtail ureteral stents 4. Stable severe anterior wedge compression of L1 vertebral body. 5. New acute mild compression of T11 vertebral body compared with 08/09/2021. 6. Small hiatal hernia COMMENTS: For patients with an IVC filter, recommend assessment for a management plan for the patient's IVC filter. If there is no established management plan, recommend referral to an interventional clinician on a nonemergent basis for evaluation. Chest X-Ray 09/01/21 01:47 IMPRESSION: 1. Nasogastric tube tip in proximal stomach. 2. There are no acute chest findings. Laboratory Results WBC 8.0 10^3/uL (4.0-10.0) 09/03/21 05:17 RBC 2.93 10^6/uL (4.1-5.3) L 09/03/21 05:17 Hgb 8.8 g/dL (11.5-15.3) L 09/03/21 05:17 Hct 28.2 % (37.0-47.0) L 09/03/21 05:17 MCV 96.2 fl (81-99) 09/03/21 05:17 MCH 30.0 pg (28.0-34.0) 09/03/21 05:17 MCHC 31.2 g/dL (30.0-36.0) 09/03/21 05:17 RDW 20.0 % (12.1-15.1) H 09/03/21 05:17 Plt Count 177 10^3/cmm (130-400) 09/03/21 05:17 MPV 8.8 fL (7.4-10.4) 09/03/21 05:17 Neut % (Auto) 57.0 % 09/03/21 05:17 Lymph % (Auto) 24.8 % 09/03/21 05:17 [place] % (Auto) 12.1 % 09/03/21 05:17 Eos % (Auto) 1.9 % 09/03/21 05:17 Baso % (Auto) 0.6 % 09/03/21 05:17 Neut # (Auto) 4.55 10^3/uL (1.8-7.7) 09/03/21 05:17 Lymph # (Auto) 2.0 10^3/uL (0.8-4.8) 09/03/21 05:17 [place] # (Auto) 1.0 10^3/uL (0.2-0.9) H 09/03/21 05:17 Eos # (Auto) 0.2 10^3/uL (0.0-0.8) 09/03/21 05:17 Baso # (Auto) 0.1 10^3/uL (0.0-0.1) 09/03/21 05:17 Nucleated RBC % (auto) 0.3 % 09/03/21 05:17 Nucleated RBCs # 0.0 /100WBC 09/03/21 05:17 Sodium 139 mmol/L (136-145) 09/03/21 05:17 Potassium 3.7 mmol/L (3.5-5.1) 09/03/21 05:17 Chloride 105 mmol/L (98-107) 09/03/21 05:17 Carbon Dioxide 21 mmol/L (22-29) L 09/03/21 05:17 Anion Gap 16.7 (5-19) 09/03/21 05:17 BUN 8 mg/dL (8-23) 09/03/21 05:17 Creatinine 0.6 mg/dL (0.5-0.9) 09/03/21 05:17 GFR Calculation Not Reportable 09/03/21 05:17 Glucose 91 mg/dL (65-115) 09/03/21 05:17 Calculated Osmolality 286 mOsm/kg (285-295) 09/03/21 05:17 Calcium 7.7 mg/dL (8.5-10.5) L 09/03/21 05:17 Magnesium 1.9 mg/dL (1.7-2.3) 09/02/21 05:19 Total Bilirubin 0.6 mg/dL (0.15-1.2) 08/31/21 22:40 AST 19 U/L (0-32) 08/31/21 22:40 ALT 19 U/L (0-33) 08/31/21 22:40 Alkaline Phosphatase 119 IU/L (35-105) H 08/31/21 22:40 Total Protein 6.7 g/dL (6.6-8.7) 08/31/21 22:40 Albumin 3.3 g/dL (3.5-5.2) L 08/31/21 22:40 Globulin 3.4 g/dL (1.3-4.6) 08/31/21 22:40 Lipase 9 U/L (13-60) L 08/31/21 22:40 TSH 2.18 uIU/mL (0.27-4.20) 09/01/21 03:48 Urine Color Brown (Yellow) 09/01/21 00:16 Urine Appearance Cloudy (CLEAR) 09/01/21 00:16 Urine pH 5 (5-7) 09/01/21 00:16 Ur Specific [place] 1.020 (1.005-1.030) 09/01/21 00:16 Urine Protein 3+ (Negative) H 09/01/21 00:16 Urine Glucose (UA) Norm (Normal) 09/01/21 00:16 Urine Ketones 1+ (Negative) H 09/01/21 00:16 Urine Blood 3+ (Negative) H 09/01/21 00:16 Urine Nitrate Negative (Negative) 09/01/21 00:16 Urine Bilirubin 1+ (Negative) H 09/01/21 00:16 Urine Urobilinogen 4 mg/dL (Negative) H 09/01/21 00:16 Ur Leukocyte Esterase 2+ (Negative) H 09/01/21 00:16 Urine RBC Too numerous to cnt /hpf (0-2) H 09/01/21 00:16 Urine WBC 80-100 /hpf (0-5) H 09/01/21 00:16 Ur Squamous Epith Cells 5-10 /hpf (0-5) H 09/01/21 00:16 Ur Transition Epith Cell 0-4 /hpf 09/01/21 00:16 Amorphous Sediment Not Reportable 09/01/21 00:16 Urine Bacteria 2+ /hpf (NONE) H 09/01/21 00:16 Urine Mucus 1+ /hpf 09/01/21 00:16 Vitals Last Vital Signs Temp 98.0 F 09/03/21 08:18 Pulse 98 09/03/21 08:18 Resp 16 09/03/21 08:18 BP 142/88 09/03/21 08:18 Pulse Ox 94 09/03/21 08:18 Discharge Plan Discharge Patient Disposition: Home Condition: Stable Prescriptions: New ciprofloxacin HCl 500 mg tablet 500 mg PO Q12H 10 Days Qty: 20 0RF Continued loratadine [Claritin] 10 mg Tablet 10 mg PO DAILY PRN (Reason: Allergy Symptoms) 0RF hydrocodone-acetaminophen 5-325 mg Tablet 1 tab PO Q4H PRN (Reason: Pain) 0RF prochlorperazine maleate 10 mg Tablet 10 mg PO Q6H PRN (Reason: Nausea) 0RF famotidine 20 mg Tablet 20 mg PO DAILY 0RF dexamethasone 4 mg Tablet See Rx Instructions .ROUTE .COMPLEX 0RF Rx Instructions: take 5 tabs in am of chemotherapy ondansetron 4 mg tablet,disintegrating 4 mg PO Q6H PRN (Reason: nausea and vomiting) Qty: 14 0RF nitrofurantoin macrocrystal 100 mg capsule 100 mg PO BID 7 Days Qty: 14 0RF Rx Instructions: must administer with a meal/food tramadol 50 mg Tablet 50 mg PO TID PRN (Reason: Pain) 0RF duloxetine 30 mg Capsule,Delayed Release(Dr/Ec) 30 mg PO BID 0RF Discharge Orders: Discharge Order (Routine); Ordered 09/03/21 Ordered By: Antoni Mcdowell Other Ambulatory Orders: Physical Therapy Outpatient in Home Eval and Treat Other (Order) Facility: [facility] - Location: Physical Therapy Ordered By: Antoni Mcdowell Referrals: Outpt Physical Therapy at the [facility] [Other] (Outpt PT will call you at home. They will setup a date/time for you to come in & get therapy. If you have not heard from them by Wednesday, please call the number listed above. ) Nils Gambino DO [Primary Care Provider] - 09/09/21 8:10 am Discharge Diet: Advance as tolerated Discharge Activity: Increase activity as tolerated Patient Instructions: Ciprofloxacin (By mouth), Urinary Tract Infection in Women (GEN), Bowel Obstruction (DC), Opioid Safety Activity Restrictions/Additional Instructions: Follow-up with your gynecology surgeon in the next week. Hold Macrobid until completion of your antibiotic course. Return for any concerns. Discharge Attestations Time Spent in Discharge Care*: greater than 30 min Quality Metrics Clinical Quality Measures [ No reported AMI, CVA or VTE this stay] Coding Level of Care Code Acute Chg FW DC note Diagnoses Small bowel obstruction K56.609
[2021-09-03 11:36] VITALS: BP 144/82; PULSE 96; RESP 18; TEMP 36.9; O2SAT 95
[2021-09-03 14:44] VITALS: BP 144/82; PULSE 96; RESP 18; TEMP 36.9; O2SAT 95
== END 2021-09-03 14:45 | disposition home or self-care (01) | DRG 389 ==
LOC: ER 23:15 → MEDSURG 09-01 02:02
PROVIDERS: Emergency Medicine; Admitting Provider Internal Medicine; Emergency Provider Emergency Medicine; PCP Family Medicine; Visit Provider Internal Medicine
DX: K56.600 Partial intestinal obstruction, unspecified as to cause (principal); N39.0 Urinary tract infection, site not specified; I82.401 Acute embolism and thrombosis of unspecified deep veins of right lower extremity; E86.0 Dehydration; B95.2 Enterococcus as the cause of diseases classified elsewhere; Z79.899 Other long term (current) drug therapy; Z92.21 Personal history of antineoplastic chemotherapy; Z85.42 Personal history of malignant neoplasm of other parts of uterus; Z86.718 Personal history of other venous thrombosis and embolism; Z95.828 Presence of other vascular implants and grafts; E87.6 Hypokalemia; E83.42 Hypomagnesemia; Z85.43 Personal history of malignant neoplasm of ovary; Z96.0 Presence of urogenital implants
CPT/HCPCS: 36415; 36591; 71045; 74176; 80048; 80053; 81001; 83690; 83735; 84443; 85025; 87077; 87086; 87186; 96360; 96361; 96372; 99284; J0696; J1642; J1650; J2405; J3475; J3480; J7030

== ENCOUNTER 2021-09-17 09:57 | Emergency (ER) | payer MEDICARE, OTHER, SELFPAY ==
[2021-09-17] VITALS (9 sets, daily range): BP systolic 130–146; BP diastolic 70–87; PULSE 70–92; RESP 16–18; TEMP 36.2–36.6; O2SAT 96–97; BMI 42.9
--- NOTE | 2021-09-17 10:51 | ED_ITS ---
HPI - Weakness General: Chief complaint: Weakness Stated complaint: weakness Time Seen by Provider: 09/17/21 09:59 Source: patient Mode of arrival: ambulatory Limitations: no limitations History of Present Illness: 76-year-old female who presents to the EMS with generalized weakness. Has not had much food or fluid intake last few days history ofOvarian cancer. Had a ureteral obstruction of bowel obstruction recently. She has had nausea and vomiting. No hematemesis or coffee-ground emesis patient states she feels like she is just behind on fluids. She was seen 2 days ago and given IV fluids and. MD Complaint: generalized weakness Onset (ago): day(s) Duration: constant Location: generalized Severity: moderate Relieving factors: none Exacerbating factors: none Associated symptoms: Denies chest pain, chills, confusion, melena, decreased appetite, diaphoresis, dysuria, easy bruising, fever(s), headache(s), myalgias, nausea, rash, short of breath, syncope or vomiting Review of Systems Const: Denies: fever(s), chills or diaphoresis Card: Denies: chest pain or syncope GI: Denies: abdominal pain, nausea, vomiting or melena : Denies: flank pain, difficulty voiding or dysuria Musc: Denies: neck pain or back pain Neuro: Denies: headache(s) or confusion Wally/Lymph: Denies: easy bruising [facility] ED PFSH: Medical History Bilateral hydronephrosis Diffuse large B cell lymphoma Diagnosed 2018 Ovarian cancer Followed in [place] Port-A-Cath in place Presence of IVC filter Right leg DVT (06/2021) GSV extending to CFV Status post insertion of nerve stimulator Surgical History H/O cataract extraction bilateral eyes H/O tubal ligation History of colon resection History of left knee replacement History of removal of Port-a-Cath History of total right knee replacement History of ureter stent Bilateral, due to obstruction related to malignancy S/P cholecystectomy Status post hysteroscopy 06/11/2021- hysteroscopy with D&C via myosure performed by Dr. Victoria at [facility] Family History Mother , at age Hypertension Cancer pancreatic Father , at age 72 Colon cancer 72 Denies family history of Ovarian cancer Diabetes Clotting disorder Heart disease Hyperlipidemia Breast cancer Anesthesia complication Bleeding disorder Uterine cancer Thyroid condition Stroke Social History Smoking and tobacco status: former smoker Second hand smoke exposure: No Alcohol intake: never Adopted: No Caregiver/support person: Yes Lives independently: Yes Household members: significant other Housing: House Marital status: / service: No Current occupational status: retired Current occupational exposures/hazards: No Pets and animals: Yes History of recent travel: No Leisure activites: exercise Sexually active: No Current gender identity: Female Cheli/Nondenominational: Taoism Physical Exam Const: COMMON NORMALS: no acute distress GENERAL APPEARANCE: cooperative and comfortable ORIENTATION/CONSCIOUSNESS: Yes awake, Yes oriented to person, Yes oriented to place and Yes oriented to time HENMT: COMMON NORMALS: normocephalic, atraumatic and hearing grossly normal bilaterally HEAD & SCALP: normocephalic and atraumatic Resp: COMMON NORMALS: normal respiratory effort, No retractions, No use of accessory muscles and clear to auscultation bilaterally AUSCULTATION: clear to auscultation bilaterally Cardio: COMMON NORMALS: regular rate, regular rhythm and No murmurs present (Cardio) RATE: regular rate RHYTHM: regular rhythm GI: COMMON NORMALS: Soft to palpation and No hepatosplenomegaly present AUS CULTATION: Yes normoactive bowel sounds PALPATION: Yes Soft to palpation, No Tenderness to palpation present (GI), No Guarding due to palpation present (GI) and Yes No hepatosplenomegaly present Extremity: COMMON NORMALS: normal to inspection, capillary refill normal, no clubbing, cyanosis or edema, no calf tenderness and no pedal edema Neuro: SENSORIUM/ORIENTATION: Yes oriented to person, Yes oriented to place and Yes oriented to time Skin: COMMON NORMALS: no rashes or lesions noted GENERAL SKIN EXAM: no rashes or lesions noted Course Vital Signs: Vital signs: Vital Signs Temperature 97.9 F 09/17/21 17:46 Pulse Rate 90 09/17/21 17:46 Respiratory Rate 18 09/17/21 17:46 Blood Pressure 133/72 09/17/21 17:46 Pulse Oximetry 97 09/17/21 17:46 MDM - Weakness Medical Decision Making Admit for pancytopenia discussed with oncology admit to hospitalist. Medical Records I reviewed the patient's medical records. Lab Data I reviewed the patient's lab results. : 09/17/21 10:58 09/17/21 10:58 Laboratory Results WBC 0.8 10^3/uL (4.0-10.0) L* 09/17/21 10:58 RBC 2.95 10^6/uL (4.1-5.3) L 09/17/21 10:58 Hgb 8.9 g/dL (11.5-15.3) L 09/17/21 10:58 Hct 28.2 % (37.0-47.0) L 09/17/21 10:58 MCV 95.6 fl (81-99) 09/17/21 10:58 MCH 30.2 pg (28.0-34.0) 09/17/21 10:58 MCHC 31.6 g/dL (30.0-36.0) 09/17/21 10:58 RDW 18.6 % (12.1-15.1) H 09/17/21 10:58 Plt Count 132 10^3/cmm (130-400) 09/17/21 10:58 MPV 10.3 fL (7.4-10.4) 09/17/21 10:58 Neut % (Auto) 13.9 % 09/17/21 10:58 Lymph % (Auto) 74.7 % 09/17/21 10:58 Bureau % (Auto) 2.5 % 09/17/21 10:58 Eos % (Auto) 8.9 % 09/17/21 10:58 Baso % (Auto) 0.0 % 09/17/21 10:58 Neut # (Auto) 0.11 10^3/uL (1.8-7.7) L* 09/17/21 10:58 Lymph # (Auto) 0.6 10^3/uL (0.8-4.8) L 09/17/21 10:58 [place] # (Auto) 0.0 10^3/uL (0.2-0.9) L 09/17/21 10:58 Eos # (Auto) 0.1 10^3/uL (0.0-0.8) 09/17/21 10:58 Baso # (Auto) 0.0 10^3/uL (0.0-0.1) 09/17/21 10:58 Nucleated RBC % (auto) 0 % 09/17/21 10:58 Nucleated RBCs # 0.0 /100WBC 09/17/21 10:58 Sodium 142 mmol/L (136-145) 09/17/21 10:58 Potassium 3.2 mmol/L (3.5-5.1) L 09/17/21 10:58 Chloride 103 mmol/L (98-107) 09/17/21 10:58 Carbon Dioxide 27 mmol/L (22-29) 09/17/21 10:58 Anion Gap 15.2 (5-19) 09/17/21 10:58 BUN 17 mg/dL (8-23) 09/17/21 10:58 Creatinine 0.7 mg/dL (0.5-0.9) 09/17/21 10:58 GFR Calculation Not Reportable 09/17/21 10:58 Glucose 117 mg/dL (65-115) H 09/17/21 10:58 Calculated Osmolality 297 mOsm/kg (285-295) H 09/17/21 10:58 Calcium 7.9 mg/dL (8.5-10.5) L 09/17/21 10:58 Total Bilirubin 0.6 mg/dL (0.15-1.2) 09/17/21 10:58 AST 15 U/L (0-32) 09/17/21 10:58 ALT 10 U/L (0-33) 09/17/21 10:58 Alkaline Phosphatase 78 IU/L (35-105) 09/17/21 10:58 Total Protein 6.2 g/dL (6.6-8.7) L 09/17/21 10:58 Albumin 3.3 g/dL (3.5-5.2) L 09/17/21 10:58 Globulin 2.9 g/dL (1.3-4.6) 09/17/21 10:58 Urine Color Tresa (Yellow) 09/17/21 10:58 Urine Appearance Hazy (CLEAR) A 09/17/21 10:58 Urine pH 6 (5-7) 09/17/21 10:58 Ur Specific [place] 1.020 (1.005-1.030) 09/17/21 10:58 Urine Protein 3+ (Negative) H 09/17/21 10:58 Urine Glucose (UA) Norm (Normal) 09/17/21 10:58 Urine Ketones 1+ (Negative) H 09/17/21 10:58 Urine Blood 3+ (Negative) H 09/17/21 10:58 Urine Nitrate Negative (Negative) 09/17/21 10:58 Urine Bilirubin 1+ (Negative) H 09/17/21 10:58 Urine Urobilinogen Norm mg/dL (Negative) 09/17/21 10:58 Ur Leukocyte Esterase 1+ (Negative) H 09/17/21 10:58 Urine RBC >100 /hpf (0-2) H 09/17/21 10:58 Urine WBC 10-15 /hpf (0-5) H 09/17/21 10:58 Ur Squamous Epith Cells 10-15 /hpf (0-5) H 09/17/21 10:58 Amorphous Sediment Not Reportable 09/17/21 10:58 Urine Bacteria 2+ /hpf (NONE) H 09/17/21 10:58 Discharge Plan Discharge Patient Disposition: Home Clinical Impression: Leukopenia, Ovarian cancer, Drug-induced nausea and vomiting, Dehydration Condition: Stable Prescriptions: New levofloxacin 750 mg tablet 750 mg PO DAILY 10 Days 0RF pantoprazole [Protonix] 40 mg tablet,delayed release (DR/EC) 40 mg PO DAILY 28 Days 0RF Discontinued famotidine 20 mg Tablet 20 mg PO DAILY PRN (Reason: Acid Reflux) 0RF ciprofloxacin HCl [Cipro] 500 mg Tablet 500 mg PO Q12H 0RF Rx Instructions: rx filled 09/03/21 10d/s No Action loratadine [Claritin] 10 mg Tablet 10 mg PO DAILY PRN (Reason: Allergy Symptoms) 0RF hydrocodone-acetaminophen 5-325 mg Tablet 1 tab PO Q4H PRN (Reason: Pain) 0RF prochlorperazine maleate 10 mg Tablet 10 mg PO Q6H PRN (Reason: Nausea) 0RF dexamethasone 4 mg Tablet See Rx Instructions .ROUTE .COMPLEX 0RF Rx Instructions: take 5 tabs (20mg) am of chemotherapy ondansetron 4 mg tablet,disintegrating 4 mg PO Q6H PRN (Reason: nausea and vomiting) Qty: 14 0RF hydroxyzine HCl 25 mg Tablet 25 mg PO DAILY@12 0RF enoxaparin [Lovenox] 60 mg/0.6 mL Syringe 60 mg SUBCUT Q12H 0RF Rx Instructions: for 7 days (rx filled 09/13/21) tramadol 50 mg Tablet 50 mg PO QID PRN (Reason: Pain) 0RF duloxetine 30 mg Capsule,Delayed Release(Dr/Ec) 30 mg PO DAILY 0RF Discharge Orders: Discharge ED (Routine); Ordered 09/17/21 Ordered By: Edwin Cruz Referrals: Nils Gambino DO [Primary Care Provider] - Discharge Diet: Advance as tolerated Discharge Activity: Limit activity as instructed Patient Instructions: Opioid Safety Activity Restrictions/Additional Instructions: Follow-up at Dr. Baugh's office tomorrow for hydration and repeat labs and tr eatment for low white count Coding Level of Care Code ED Enrollment Representative for Tono Mejia
[2021-09-17 11:06] LABS: Eosinophils # 0.1 10^3/uL (0.0-0.8); Eosinophils % 8.9 %; Hematocrit 28.2 % (37.0-47.0); Hemoglobin 8.9 g/dL (11.5-15.3); Lymphocytes # 0.6 10^3/uL (0.8-4.8); Lymphocytes % 74.7 %; Mean Corpuscular HGB Conc 31.6 g/dL (30.0-36.0); Mean Corpuscular Hemoglobin 30.2 pg (28.0-34.0); Mean Corpuscular Volume 95.6 fl (81-99); Mean Platelet Volume 10.3 fL (7.4-10.4); Monocytes % 2.5 %; Neutrophils % 13.9 %; Nucleated Red Blood Cells % 0 %; Platelet Count 132 10^3/cmm (130-400); Positive M 1; Red Blood Count 2.95 10^6/uL (4.1-5.3); Red Cell Distribution Width 18.6 % (12.1-15.1)
[2021-09-17] MEDS: sodium chloride 0.9% 1,000 ML 999 ML IV (11:08)
--- NOTE | 2021-09-17 11:08 | PC.NURSE ---
In and out cath completed for UA.
[2021-09-17 11:21] LABS: Add Urine Microscopic? YES; Bilirubin Urine 1+ (Negative); Blood Urine 3+ (Negative); Ketones Urine 1+ (Negative); Leukocyte Esterase Urine 1+ (Negative); Nitrate Urine Negative (Negative); Protein Urine 3+ (Negative); Urine Appearance Hazy (CLEAR); Urine Color Amber (Yellow); Urobilinogen Urine Norm (Negative); pH Urine 6 (5-7)
[2021-09-17 11:22] LABS: Add Urine Culture? Yes; Bacteria Urine 2+ /hpf; Glucose Urine UA Norm (Normal); RBC Urine >100 /hpf (0-2)
[2021-09-17 11:25] LABS: Alanine Aminotransferase 10 U/L (0-33); Albumin Level 3.3 g/dL (3.5-5.2); Alkaline Phosphatase 78 IU/L (35-105); Anion Gap 15.2 (5-19); Aspartate Amino Transferase 15 U/L (0-32); Blood Urea Nitrogen 17 mg/dL (8-23); Calcium 7.9 mg/dL (8.5-10.5); Carbon Dioxide 27 mmol/L (22-29); Chloride 103 mmol/L (98-107); Globulin 2.9 g/dL (1.3-4.6); Glucose 117 mg/dL (65-115); Osmolality Calculated 297 mOsm/kg (285-295); Potassium 3.2 mmol/L (3.5-5.1); Sodium 142 mmol/L (136-145); Total Bilirubin 0.6 mg/dL (0.15-1.2); Total Protein 6.2 g/dL (6.6-8.7)
[2021-09-17 11:31] LABS: White Blood Count 0.8 10^3/uL (4.0-10.0)
[2021-09-17 11:32] LABS: Neutrophils # 0.11 10^3/uL (1.8-7.7); Slide Review Slide Review Perform
[2021-09-17] MEDS: alum-mag-hydroxide-sime 30 mL UDC PO (16:33)
== END 2021-09-17 17:17 | disposition home or self-care (01) ==
PROVIDERS: Emergency Provider Family Medicine; PCP Family Medicine
DX: D72.819 Decreased white blood cell count, unspecified (principal); C56.9 Malignant neoplasm of unspecified ovary; R11.2 Nausea with vomiting, unspecified; E86.0 Dehydration; Z87.891 Personal history of nicotine dependence
CPT/HCPCS: 80053; 81001; 85025; 87077; 87086; 87186; 96360; 96372; 99284; J7030; Q5101

== ENCOUNTER 2021-09-17 19:16 | Inpatient (IN) | payer MEDICARE, OTHER, SELFPAY ==
[2021-09-17 19:18] VITALS: BP 107/86; PULSE 112; RESP 18; TEMP 36.4; O2SAT 95; BMI 42.9
--- NOTE | 2021-09-17 19:20 | XRR_ITS ---
PROCEDURE INFORMATION: Exam: XR Chest Exam date and time: 09/17/2021 7:46 PM Age: 76 years old Clinical indication: Other: Weak; Additional info: Weakness TECHNIQUE: Imaging protocol: Radiologic exam of the chest. Views: 1 view. COMPARISON: CR XR chest 1V portable [id number] 09/15/2021 11:32 AM FINDINGS: Tubes, catheters and devices: Right chest port terminates at the cavoatrial junction. Partially visualized bilateral ureteral tubes. Multiple thoracic and lumbar stimulator leads noted. Lungs: Unremarkable. No consolidation. Pleural spaces: Unremarkable. No pleural effusion. No pneumothorax. Heart/Mediastinum: Unremarkable. No cardiomegaly. Bones/joints: Visualized osseous structures are intact. Moderate DJD of both shoulders. XR/XR chest 1V portable [id number] IMPRESSION: No acute findings.
--- NOTE | 2021-09-17 19:21 | ECG_ITS ---
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 Measurements Intervals [place] Rate: 113 P: 56 MO: 143 QRS: -38 QRSD: 92 T: 108 QT: 349 QTc: 480 Interpretive Statements SINUS TACHYCARDIA WITH OCCASIONAL VENTRICULAR PREMATURE COMPLEXES LEFT AXIS DEVIATION [QRS AXIS < -30] POSSIBLE ANTERIOR MYOCARDIAL INFARCTION , PROBABLY OLD [30 ms Q WAVE IN V3/V4, OR R < 0.2 mV IN V4] MODERATE T-WAVE ABNORMALITY, CONSIDER LATERAL ISCHEMIA [-0.1+ mV T-WAVE IN I/aVL/V5/V6] Compared to ECG 09/15/2021 11:18:01 Ventricular premature complex(es) now present T-wave abnormality now present Possible ischemia now present Left ventricular hypertrophy no longer present ST (T wave) deviation no longer present Myocardial infarct finding still present Electronically Signed On 09-17-2021 23:43:08 CDT by Joanne Muller M.D. [id number]
--- NOTE | 2021-09-17 19:35 | ED_ITS ---
HPI - Weakness General: Chief complaint: Weakness Stated complaint: WEAKNESS Time Seen by Provider: 09/17/21 19:18 Source: patient and EMS Mode of arrival: EMS Limitations: no limitations History of Present Illness: 76-year-old female has a history of ovarian cancer she is currently on chemo she states she had got her last chemo with treatment last and states that since then she has had extreme weakness decreased intake and from dehydration this is her third time she has been seen here the last 2 days she is seen earlier today states after being discharged she was unable to get out of the car states she is too weak to be able to walk and did pass out she denies any fever denies any chest pain. Associated symptoms: Reports syncope; Denies chills, dysuria, easy bruising, fever(s), headache(s), nausea or vomiting Review of Systems Const: Denies: fever(s), chills, body aches or change in appetite Eyes: Denies: blurry vision or eye discomfort ENMT: Denies: throat pain or dental pain Card: Reports: syncope Resp: Denies: dyspnea GI: Denies: abdominal pain, nausea, vomiting or diarrhea : Denies: dysuria Musc: Reports: muscle weakness Skin/Breast: Denies: rash Neuro: Denies: headache(s) Psych: Denies: depression Wally/Lymph: Denies: easy bruising All/Imm: Denies: urticaria PFSH ED PFSH: Medical History Diffuse large B cell lymphoma Port-A-Cath in place Status post insertion of nerve stimulator Surgical History H/O cataract extraction bilateral eyes H/O tubal ligation History of colon resection History of left knee replacement History of removal of Port-a-Cath History of total right knee replacement S/P cholecystectomy Family History Mother , at age Hypertension Cancer pancreatic Father , at age 72 Colon cancer 72 Denies family history of Ovarian cancer Diabetes Clotting disorder Heart disease Hyperlipidemia Breast cancer Anesthesia complication Bleeding disorder Uterine cancer Thyroid condition Stroke Social History Smoking and tobacco status: former smoker Second hand smoke exposure: No Alcohol intake: never Adopted: No Caregiver/support person: Yes Lives independently: Yes Household members: significant other Housing: House Marital status: / service: No Current occupational status: retired Current occupational exposures/hazards: No Pets and animals: Yes History of recent travel: No Leisure activites: exercise Sexually active: No Current gender identity: Female Cheli/Restorationist: Roman Catholic Physical Exam Const: COMMON NORMALS: patient oriented x3 GENERAL APPEARANCE: ill appearing and frail appearing HENMT: COMMON NORMALS: normocephalic and atraumatic HEAD & SCALP: normocephalic and atraumatic Eye: COMMON NORMALS: Equal, round and reactive pupils present and EOMs intact bilaterally PUPIL: Yes Equal, round and reactive pupils present Neck/C-Spine: COMMON NORMALS: full ROM and supple Chest: COMMONS NORMALS: normal inspection of the chest and normal palpation of entire chest wall Resp: COMMON NORMALS: normal respiratory effort, No retractions, No use of accessory muscles and clear to auscultation bilaterally AUSCULTATION: clear to auscultation bilaterally Cardio: COMMON NORMALS: regular rate, regular rhythm and No murmurs present (C ardio) RATE: regular rate RHYTHM: regular rhythm GI: COMMON NORMALS: Normal to inspection, nondistended, normoactive bowel sounds present, Soft to palpation, non-tender and no masses PALPATION: Yes Soft to palpation Extremity: COMMON NORMALS: normal to inspection and full ROM Neuro: COMMON NORMALS: patient oriented x3, moves all extremities and no focal motor deficits Psych: COMMON NORMALS: mental status grossly normal, Normal thought process present and cooperative THOUGHT PROCESS: Normal thought process present Skin: COMMON NORMALS: no rashes or lesions noted and no wounds GENERAL SKIN EXAM: no rashes or lesions noted Course Vital Signs: Vital signs: Vital Signs Temperature 97.6 F 09/17/21 19:18 Pulse Rate 112 H 09/17/21 19:18 Respiratory Rate 18 09/17/21 19:18 Blood Pressure 107/86 09/17/21 19:18 Pulse Oximetry 95 09/17/21 19:18 MDM - Weakness Medical Decision Making Patient presents here with syncopal event along with generalized weakness patient's been seen here 3 times last 2 days she states she is not able to ambulate well due to her weakness was unable to get out of her car spoke to hospitalist will admit for observation for weakness. Lab Data : 09/17/21 20:00 09/17/21 20:00 Radiology Impressions Chest X-Ray 09/17/21 19:20 IMPRESSION: No acute findings. Laboratory Results WBC 0.6 10^3/uL (4.0-10.0) L* 09/17/21 20:00 RBC 2.88 10^6/uL (4.1-5.3) L 09/17/21 20:00 Hgb 8.7 g/dL (11.5-15.3) L 09/17/21 20:00 Hct 27.4 % (37.0-47.0) L 09/17/21 20:00 MCV 95.1 fl (81-99) 09/17/21 20:00 MCH 30.2 pg (28.0-34.0) 09/17/21 20:00 MCHC 31.8 g/dL (30.0-36.0) 09/17/21 20:00 RDW 18.7 % (12.1-15.1) H 09/17/21 20:00 Plt Count 112 10^3/cmm (130-400) L 09/17/21 20:00 MPV 9.9 fL (7.4-10.4) 09/17/21 20:00 Neut % (Auto) 9.9 % 09/17/21 20:00 Lymph % (Auto) 76.7 % 09/17/21 20:00 [place] % (Auto) 6.7 % 09/17/21 20:00 Eos % (Auto) 5.0 % 09/17/21 20:00 Baso % (Auto) 1.7 % 09/17/21 20:00 Neut # (Auto) 0.06 10^3/uL (1.8-7.7) L* 09/17/21 20:00 Lymph # (Auto) 0.5 10^3/uL (0.8-4.8) L 09/17/21 20:00 [place] # (Auto) 0.0 10^3/uL (0.2-0.9) L 09/17/21 20:00 Eos # (Auto) 0.0 10^3/uL (0.0-0.8) 09/17/21 20:00 Baso # (Auto) 0.0 10^3/uL (0.0-0.1) 09/17/21 20:00 Nucleated RBC % (auto) 0 % 09/17/21 20:00 Nucleated RBCs # 0.0 /100WBC 09/17/21 20:00 Sodium 140 mmol/L (136-145) 09/17/21 20:00 Potassium 3.1 mmol/L (3.5-5.1) L 09/17/21 20:00 Chloride 102 mmol/L (98-107) 09/17/21 20:00 Carbon Dioxide 23 mmol/L (22-29) 09/17/21 20:00 Anion Gap 18.1 (5-19) 09/17/21 20:00 BUN 18 mg/dL (8-23) 09/17/21 20:00 Creatinine 0.9 mg/dL (0.5-0.9) 09/17/21 20:00 GFR Calculation Not Reportable 09/17/21 20:00 Glucose 130 mg/dL (65-115) H 09/17/21 20:00 Calculated Osmolality 294 mOsm/kg (285-295) 09/17/21 20:00 Calcium 7.9 mg/dL (8.5-10.5) L 09/17/21 20:00 Magnesium 1.7 mg/dL (1.7-2.3) 09/17/21 20:00 Total Bilirubin 0.7 mg/dL (0.15-1.2) 09/17/21 20:00 AST 14 U/L (0-32) 09/17/21 20:00 ALT 9 U/L (0-33) 09/17/21 20:00 Alkaline Phosphatase 74 IU/L (35-105) 09/17/21 20:00 Troponin T Baseline 30 ng/L (0-10) H 09/17/21 20:00 Total Protein 6.0 g/dL (6.6-8.7) L 09/17/21 20:00 Albumin 3.1 g/dL (3.5-5.2) L 09/17/21 20:00 Globulin 2.9 g/dL (1.3-4.6) 09/17/21 20:00 EKG Data EKG 1: I personally reviewed and interpreted this EKG as follows: EKG interpretation date: 09/17/21 EKG interpretation time: 19:36 Interpretation: sinus tach hr [address] or t wave abnormalities qrs 92 qtc 416 Discharge Plan Discharge Condition: Stable Prescriptions: No Action loratadine [Claritin] 10 mg Tablet 10 mg PO DAILY PRN (Reason: Allergy Symptoms) 0RF hydrocodone-acetaminophen 5-325 mg Tablet 1 tab PO Q4H PRN (Reason: Pain) 0RF prochlorperazine maleate 10 mg Tablet 10 mg PO Q6H PRN (Reason: Nausea) 0RF dexamethasone 4 mg Tablet See Rx Instructions .ROUTE .COMPLEX 0RF Rx Instructions: take 5 tabs (20mg) am of chemotherapy ondansetron 4 mg tablet,disintegrating 4 mg PO Q6H PRN (Reason: nausea and vomiting) Qty: 14 0RF hydroxyzine HCl 25 mg Tablet 25 mg PO DAILY@12 0RF enoxaparin [Lovenox] 60 mg/0.6 mL Syringe 60 mg SUBCUT Q12H 0RF Rx Instructions: for 7 days (rx filled 09/13/21) levofloxacin 750 mg tablet 750 mg PO DAILY 10 Days 0RF Protonix 40 mg tablet,delayed release (DR/EC) 40 mg PO DAILY 28 Days 0RF tramadol 50 mg Tablet 50 mg PO QID PRN (Reason: Pain) 0RF duloxetine 30 mg Capsule,Delayed Release(Dr/Ec) 30 mg PO DAILY 0RF Referrals: Nils Gambino DO [Primary Care Provider] - Coding Level of Care Code ED Sales Architect for Chg Fwd Exam Comprehensive
[2021-09-17 20:07] LABS: Basophils % 1.7 %; Hematocrit 27.4 % (37.0-47.0); Hemoglobin 8.7 g/dL (11.5-15.3); Lymphocytes # 0.5 10^3/uL (0.8-4.8); Lymphocytes % 76.7 %; Mean Corpuscular HGB Conc 31.8 g/dL (30.0-36.0); Mean Corpuscular Hemoglobin 30.2 pg (28.0-34.0); Mean Corpuscular Volume 95.1 fl (81-99); Mean Platelet Volume 9.9 fL (7.4-10.4); Monocytes % 6.7 %; Neutrophils % 9.9 %; Nucleated Red Blood Cells % 0 %; Platelet Count 112 10^3/cmm (130-400); Red Blood Count 2.88 10^6/uL (4.1-5.3); Red Cell Distribution Width 18.7 % (12.1-15.1)
[2021-09-17 20:28] LABS: Alanine Aminotransferase 9 U/L (0-33); Albumin Level 3.1 g/dL (3.5-5.2); Alkaline Phosphatase 74 IU/L (35-105); Anion Gap 18.1 (5-19); Aspartate Amino Transferase 14 U/L (0-32); Blood Urea Nitrogen 18 mg/dL (8-23); Calcium 7.9 mg/dL (8.5-10.5); Carbon Dioxide 23 mmol/L (22-29); Chloride 102 mmol/L (98-107); Globulin 2.9 g/dL (1.3-4.6); Glucose 130 mg/dL (65-115); Magnesium 1.7 mg/dL (1.7-2.3); Osmolality Calculated 294 mOsm/kg (285-295); Potassium 3.1 mmol/L (3.5-5.1); Sodium 140 mmol/L (136-145); Total Bilirubin 0.7 mg/dL (0.15-1.2)
[2021-09-17 20:31] LABS: Troponin(5th) Baseline 30 ng/L (0-10)
[2021-09-17 20:36] LABS: Slide Review Slide Review Perform
[2021-09-17] MEDS: sodium chloride 0.9% 1,000 ML 999 ML IV (20:40)
[2021-09-17 20:42] LABS: Neutrophils # 0.06 10^3/uL (1.8-7.7); White Blood Count 0.6 10^3/uL (4.0-10.0)
[2021-09-17 20:55] VITALS: BP 130/78; PULSE 92; RESP 14; O2SAT 100
--- NOTE | 2021-09-17 21:21 | ECG_ITS ---
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 Measurements Intervals [place] Rate: 93 P: 69 [place]: 146 QRS: -32 QRSD: 97 T: 124 QT: 373 QTc: 464 Interpretive Statements SINUS RHYTHM LEFT AXIS DEVIATION [QRS AXIS < -30] POSSIBLE ANTERIOR MYOCARDIAL INFARCTION , PROBABLY OLD [30 ms Q WAVE IN V3/V4, OR R < 0.2 mV IN V4] MODERATE T-WAVE ABNORMALITY, CONSIDER LATERAL ISCHEMIA [-0.1+ mV T-WAVE IN I/aVL/V5/V6] Compared to ECG 09/17/2021 19:36:00 Sinus tachycardia no longer present Ventricular premature complex(es) no longer present Myocardial infarct finding still present T-wave abnormality still present Possible ischemia still present Electronically Signed On 09-18-2021 22:50:50 CDT by Joanne Muller M.D. [id number]
[2021-09-17 23:12] VITALS: BP 122/76; PULSE 99; RESP 18; O2SAT 100
[2021-09-17 23:31] LABS: Troponin 5 2HR 25.15 ng/L (0-10)
[2021-09-17 23:35] LABS: Troponin 5 2HR Delta -4.85 ABS# (0-10)
[2021-09-17 23:39] VITALS: BMI 40.1
--- NOTE | 2021-09-17 23:45 | P.HP_ITS ---
Providers/Chief Complaint Admitting Physician: Gabby Wood MD Primary Care Provider: Nils Gambino DO Chief Complaint: WEAKNESS History of Present Illness Francie Levine is a 76 year old female with a past medical history of right lower extremity DVT intolerant to anticoagulation due to anemia, status post IVC filter placement, history of bilateral hydronephrosis secondary to ovarian mass, endometrial adenocarcinoma currently on chemotherapy, in [place].? She presents to the ER with c/o being fatigued, weak, nauseous, has a poor appetite since her last chemotherapy one week ago. .? She has had 3 trips to the Er for similar complaints over the past 2 days. She had a fall yesterday, denies any head trauma no loss of consciousness, but does report feeling lightheaded.?D enies fever, chills, URI symptoms. Review of Systems General: Reports: 10 or more systems reviewed and unremarkable except in HPI and below Const: Denies: fever(s), chills or body aches Eyes: Denies: change in vision, blurry vision or photophobia ENMT: Reports: hoarseness; Denies: throat pain, enlarged tonsils, odynophagia or nasal congestion Card: Denies: chest pain, palpitations, irregular heart rhythm, edema, swelling of feet/ankles, lightheadedness, pre-syncope, dyspnea on exertion or orthopnea Resp: Denies: dyspnea, productive cough, non-productive cough, wheezing, stridor, pain on inspiration, change in phlegm color, hemoptysis or chest congestion GI: Denies: abdominal pain, nausea, vomiting, hematemesis, coffee ground long sis, dysphagia, heartburn, diarrhea, constipation, GI cramping, change in stool character, hematochezia or melena : Denies: flank pain, difficulty voiding, dysuria, urinary frequency, urinary urgency, urinary hesitancy or hematuria Musc: Denies: neck pain, back pain, extremity pain, joint swelling, joint warmth or deformity Neuro: Denies: headache(s), numbness in extremities, weakness in extremities, sensory changes, difficulty walking, frequent falls, dizziness, vertigo, behavioral changes, Slurred speech present or seizure-like activity Psych: Denies: anxiety, depression, suicidal ideation or homicidal ideation Endo: Denies: polyuria, polydipsia, tired all the time, cold intolerance or hot flashes Wally/Lymph: Denies: easy bruising or easy bleeding Medications/Allergies Home Medications Medication Instructions Recorded Confirmed Last Taken Type loratadine 10 mg tablet (Claritin) 10 mg PO DAILY PRN 02/14/21 09/17/21 08/08/21 History dexamethasone 4 mg tablet See Rx Instructions .ROUTE .COMPLEX 07/15/21 09/17/21 09/11/21 History hydrocodone 5 mg-acetaminophen 325 1 tab PO Q4H PRN 07/15/21 09/17/21 09/17/21 08:30 History mg tablet ondansetron 4 mg disintegrating 4 mg PO Q6H PRN #14 tab 07/15/21 09/17/21 08/06/21 Rx tablet prochlorperazine maleate 10 mg 10 mg PO Q6H PRN 07/15/21 09/17/21 08/06/21 History tablet duloxetine 30 mg capsule,delayed 30 mg PO DAILY 08/05/21 09/17/21 08/08/21 History release tramadol 50 mg tablet 50 mg PO QID PRN 08/05/21 09/17/21 08/06/21 History enoxaparin 60 mg/0.6 mL 60 mg SUBCUT Q12H 09/17/21 09/17/21 09/17/21 08:30 History subcutaneous syringe (Lovenox) hydroxyzine HCl 25 mg tablet 25 mg PO DAILY@12 09/17/21 09/17/21 Unknown History levofloxacin 750 mg tablet 750 mg PO DAILY 10 Days tab 09/17/21 Unknown Rx pantoprazole 40 mg tablet,delayed 40 mg PO DAILY 28 Days tab 09/17/21 Unknown Rx release (Protonix) Allergies Allergy/AdvReac Type Severity Reaction Status Date / Time No Known Allergies Allergy Verified 09/17/21 11:28 PFSH Acute PFSH: Medical History Diffuse large B cell lymphoma Port-A-Cath in place Status post insertion of nerve stimulator Surgical History H/O cataract extraction bilateral eyes H/O tubal ligation History of colon resection History of left knee replacement History of removal of Port-a-Cath History of total right knee replacement S/P cholecystectomy Family History Mother , at age Hypertension Cancer pancreatic Father , at age 72 Colon cancer 72 Denies family history of Ovarian cancer Diabetes Clotting disorder Heart disease Hyperlipidemia Breast cancer Anesthesia complication Bleeding disorder Uterine cancer Thyroid condition Stroke Social History Smoking and tobacco status: former smoker Second hand smoke exposure: No Alcohol intake: never Adopted: No Caregiver/support person: Yes Lives independently: Yes Household members: significant other Housing: House Marital status: / service: No Current occupational status: retired Current occupational exposures/hazards: No Pets and animals: Yes History of recent travel: No Leisure activites: exercise Sexually active: No Current gender identity: Female Cheli/Confucianist: Confucianist Vitals/I&O/Wt Last Vital Signs Temp 97.6 F 09/17/21 19:18 Pulse 99 09/17/21 23:12 Resp 18 09/17/21 23:12 BP 122/76 09/17/21 23:12 Pulse Ox 100 09/17/21 23:12 Weight last 48 hrs Weight 113.398 kg Physical Exam Narrative: GEN: Awake, alert and oriented, dehydrated+ CVS: S1S2 N RS: CTA B/L all areas Abd: Soft, nt/nd , bs+ SUPERVISOR FRONT: no focal neuro deficits Data : 09/17/21 20:00 09/17/21 20:00 A&P Assessment and plan (1) Dehydration: Presenting with poor appetite, poor po intake, resulting generalized fatigue, likely as a result of recent chemotherapy. IVF d51/2NS @ 75 cc/hr , encourage po intake Pancytopenia noted on labs Reverse isolation precautions for neutropenia No current fever, chills or other localising signs of infection monitor orthostatics blood presure Recent h/o SBO- check AXR Status: Acute (2) Leukopenia: Status: Acute (3) Hypokalemia: Supplement K with traget range f=of 3.8-5 Status: Acute Attestations Medical Necessity Statement*: anticiptae less than 2 midnight stay for dehydration, generalized weakness from chemotherapy side effects, unable to care fpr herself at home Coding Level of Care Code Acute Battery Installer for [facility] Fwd Diagnoses Dehydration E86.0 Leukopenia D72.819 Hypokalemia E87.6
[2021-09-18] VITALS (7 sets, daily range): BP systolic 113–153; BP diastolic 67–84; PULSE 83–103; RESP 12–19; TEMP 36.7–37.2; O2SAT 91–97
--- NOTE | 2021-09-18 00:04 | XRR_ITS ---
PROCEDURE INFORMATION: Exam: XR Abdomen Exam date and time: 09/18/2021 5:35 AM Age: 76 years old Clinical indication: Abdominal pain; Generalized; Prior surgery; Surgery type: Gb, kidney stents, colon, gb, nerve stimulator; Patient HX: HX of lymphoma; Additional info: Evaluate for sbo TECHNIQUE: Imaging protocol: Radiologic exam of the abdomen. Views: Frontal supine view of the abdomen. 1 View. COMPARISON: CT abdomen pelvis con [id number] 09/01/2021 12:46 AM FINDINGS: Tubes, catheters and devices: Bilateral double-J ureteral stents are seen with proximal loops in the mid abdominal region and distal loops in the lower pelvis region. IVC filter is seen. Recommend clinical assessment for management. Gastrointestinal tract: Moderate to severely gas distended loops of small bowel are seen in the abdomen and pelvis. These findings may represent postsurgical adynamic ileus or distal small bowel obstruction. Recommend correlation with bowel sound findings. Intraperitoneal space: No definite free air on the supine view exam. Bones/joints: Medium-sized degenerative osteophytes and moderate degenerative disc disease changes are seen in the mid to lower thoracic spine. Moderate bilateral sacroiliac joint degenerative changes are seen. Mild bilateral hip degenerative changes are seen. Soft tissues: Generator device is seen overlying the left abdominal region with leads extending cephalad to the thoracic spine region. Surgical clips are seen in the right upper quadrant of the abdomen, likely related to prior cholecystectomy. XR/XR abdomen 1V* [id number] IMPRESSION: 1. Moderate to severely gas distended loops of small bowel in the abdomen and pelvis. These findings may represent postsurgical adynamic ileus or distal small bowel obstruction. Recommend correlation with bowel sound findings. 2. Bilateral double-J ureteral stents, as noted above. 3. IVC filter. COMMENTS: For patients with an IVC filter, recommend assessment for a management plan for the patient's IVC filter. If there is no established management plan, recommend referral to an interventional clinician on a nonemergent basis for evaluation.
[2021-09-18] MEDS: D5-NS 0.45% + KCL 20 mEq 20 MEQ/1,000 ML BAG 75 MEQ IV ×2 (00:53→14:17)
--- NOTE | 2021-09-18 01:21 | ECG_ITS ---
[facility] Test Date: 2021-09-18 Pat Name: Francie Levine Department: Room: 253 Gender: Female Supervisor Brine: : 1945 Requested By: Anjali Fermin Order Number: [id number] Diana MD: Joanne Muller M.D. Measurements Intervals [place] Rate: 91 P: 55 WA: 152 QRS: -23 QRSD: 92 T: 123 QT: 379 QTc: 469 Interpretive Statements SINUS RHYTHM WITH OCCASIONAL SUPRAVENTRICULAR PREMATURE COMPLEXES BORDERLINE LEFT AXIS DEVIATION [QRS AXIS < -20] ST DEVIATION AND MODERATE T-WAVE ABNORMALITY, CONSIDER LATERAL ISCHEMIA [-0.1+ mV T-WAVE IN I/aVL/V5/V6] Compared to ECG 09/17/2021 22:09:50 Myocardial infarct finding no longer present T-wave abnormality still present Possible ischemia still present Electronically Signed On 09-18-2021 22:51:40 CDT by Joanne Muller M.D. [id number]
[2021-09-18] MEDS: pantoprazole DR 40 mg Tablet PO (01:22)
[2021-09-18] MEDS: prochlorperazine 10 mg Tablet PO (01:43)
[2021-09-18] MEDS: ondansetron 2 mg/ML SDV 2 mL 4 MG IVP (03:39)
[2021-09-18 03:42] LABS: Troponin 5 6HR 25.93 ng/L (0-10); Troponin 5 6HR Delta -4.07 ng/L (0-12)
--- NOTE | 2021-09-18 10:33 | PC.CHAP ---
Pastoral Care Encounter/Spiritual Assessment Type of Contact [] Declined hog confinement system manager visit [] Patient/Family/Request visit [] Outpatient visit [] Follow-up visit [] Physician referral [] Code/Alert [] Routine visit [] Staff referral [] Actively dying [] Patient sleeping [] Family support [] [] Out of room [] Palliative care [] [] Receiving care in room [] Pre-surgical visit [] Trauma [] Long length of stay [] ICU visit [X] Other: Isolation Relational/Emotional Strength [] Patient feels connected with others/family/visitors/staff [] Distress [] Loneliness/isolation [] Abandonment Spirituality of Patient [] Person of Cheli [] Attends Temple of their Cheli [] Believes in Prayer [] Reads Bible or Yazidi materials [] There are Spiritual issues to be addressed [employer] [place] Interventions [] Prayer [] Active listening [] Non-anxious presence [] Spiritual/emotional support [] Crisis/trauma care [] Spiritual counseling [] Bereavement support [] Provided bereavement packet [] Provided Bible/devotional materials [] Provided toy/stuffed animal, coloring book to patient or family member [] Provided Communion [] Anointing/[place] [] Salvation [] Completed spiritual assessment [] Other: Impact on Illness or Injury [] Angry [] Fearful [] Anxious [] Often cries [] Exhaustion [] Unable to work [] Unable to attend christianity [] Unable to walk/stand [] Unable to read [] Unable to drive [] Unable to eat/drink [] Unable to sleep [] Unable to be with family [] Patient intubated [] Other: Summary Isolation Time spent with patient 5 mins
[2021-09-18] MEDS: duloxetine 30 mg Capsule PO (10:58)
[2021-09-18] MEDS: levoFLOXacin 500 mg Tablet PO (10:58)
--- NOTE | 2021-09-18 16:35 | P.PN_ITS ---
Subjective Subjective: Patient with several loose watery stools today with some clots of blood noted. Off of Lovenox which had been started outpatient due to known DVT. Nauseated but no vomiting. Requiring assistance with all ADLs today. Vitals/I&O/Wt Last Vital Signs Temp 98.9 F 09/18/21 15:40 Pulse 90 09/18/21 15:40 Resp 17 09/18/21 15:40 BP 132/80 09/18/21 15:40 Pulse Ox 96 09/18/21 15:40 09/18/21 09/18/21 09/18/21 06:59 14:59 22:59 Intake Total 420 / 420 1520 / 1520 Output Total Balance 419 / 419 1520 / 1520 Weight last 48 hrs Weight 106.141 kg Weight 113.398 kg Physical Exam Narrative: Constitutional: Awake and alert, acute and chronically ill-appearing HEENT: Alopecia, extraocular movements intact, dry mucous membranes Respiratory: Clear to auscultation anteriorly Cardiovascular: Regular Abdomen: Soft, bruising noted on the left mid area and a hexagon pattern Extremities: Trace edema Neuro: Speech clear, face symmetric, able to provide history though details are lacking, follows conversation Other: Patient with wounds to the right groin area some involving first and second layer of skin, most with a rim of erythema but otherwise looks to be healing, dressings had been saturated in stool and were removed while was in the room to be replaced Data : 09/17/21 20:00 09/17/21 20:00 A&P Assessment and plan (1) Drug-induced nausea and vomiting: From recent chemotherapy escalating with each treatment Status: Acute (2) Diarrhea: Has occurred to a significantly lesser degree after 2 prior episodes of chemotherapy but much worse this time. Likely medication related but cannot currently rule out inflammation or infection as cause Several episodes of stool today with clots of blood and bright red blood streaking Status: Acute Qualifiers: Diarrhea type: unspecified type Qualified Code(s): R19.7 - Diarrhea, unspecified (3) Dehydration: Secondary to above, electrolyte abnormalities either from dehydration or chemotherapy itself Status: Acute (4) Drug-induced leukopenia: Presumably from recent chemotherapy, especially considering has also a degree of anemia and thrombocytopenia expect that she has not yet reached her sagar. Status: Acute (5) On antineoplastic chemotherapy: She is unsure what her chemotherapeutic regimen is presently but has had now 3 doses of the most recent treatment Status: Acute (6) Acquired immunocompromised state: Secondary to cancer and current treatment Status: Acute (7) Ovarian cancer: Follows with Dr. Hare in [place] Giving increasing difficulty with therapy asking about changing to local cancer treatment with hope that she can maintain it; has previously followed with Dr. Baugh for diffuse B-cell lymphoma Has been unable to have hysterectomy and oophorectomy due to organ edema by her report Status: Chronic (8) Right leg DVT: On Lovenox and has IVC filter Status: Acute (9) Chronic anticoagulation: Lovenox, for DVT history Status: Acute (10) Bilateral hydronephrosis: With bilateral uteral stents secondary to cancer associated obstruction Status: Chronic (11) Port-A-Cath in place: Status: Chronic (12) Physical deconditioning: And difficulty meeting activities of daily living with current comorbid conditions and treatment plan Status: Acute Plan KUB noted with moderate to severely distended loops of bowel. Given stool ou tput which I personally witnessed at the bedside suspect chronic findings predominate rather than acute but does need to be kept in mind Antiemetic therapy Stool studies Hold Lovenox Recheck H&H IV fluids Monitor and replace electrolytes as needed Continue empiric Levaquin In isolation Once acute GI symptoms are controlled consider appetite stimulant Monitor for signs suggestive of recurrent small bowel obstruction which she has had during her previous stay Monitor urine output Depending on how GI symptoms are will consider PT and OT evaluation Discussed with patient the importance of WET CHAR CONVEYOR TENDER oncology in her care, basically that Dr. Brandon harp is the specialist who may be able to offer more and will need to evaluate regarding potential for surgery. Nevertheless we can see if care managers here, in our oncology center or at Dr. Hare's office can evaluate feasibility of some treatment being local when appropriate Patient difficulty maintaining ADLs due to recurrent GI symptoms, loss of appetite and poor oral intake resulting in significant fatigue. She lives alone. She has had similar issues in the past when had chemotherapy for lymphoma but never as severe as that which she is experiencing now. We will have to evaluate potential disposition planning options after we see how she does. Allow natural as per patient's wishes Attestations Medical Necessity Statement*: Requires ongoing inpatient stay for for management of diarrhea, GI symptoms and deconditioning postchemotherapy. She is immunocompromised with current neutropenia/pancytopenia with open skin wounds for which she is at risk of infection. Coding Level of Care Code Acute Manager Lsw for [facility] Fwd Diagnoses On antineoplastic chemotherapy Z79.899 Drug-induced nausea and vomiting R11.2; T50.905A Port-A-Cath in place Z95.828 Drug-induced leukopenia D70.2 Acquired immunocompromised state D84.9 Right leg DVT I82.401 Chronic anticoagulation Z79.01 Dehydration E86.0 Ovarian cancer C56.9 Bilateral hydronephrosis N13.30 Diarrhea R19.7 Diarrhea type: unspecified type Physical deconditioning R53.81
[2021-09-19] VITALS (7 sets, daily range): BP systolic 102–136; BP diastolic 69–82; PULSE 73–108; RESP 12–17; TEMP 36.8–37.3; O2SAT 92–97
[2021-09-19] MEDS: enoxaparin 30 mg/0.3 mL Syringe SUBCUT (00:04)
[2021-09-19] MEDS: dextrose 5%-ns + KCl 20 20 MEQ/1,000 ML BAG 75 MEQ IV ×2 (01:23→14:11)
[2021-09-19 05:05] LABS: Eosinophils # 0.1 10^3/uL (0.0-0.8); Eosinophils % 8.2 %; Hematocrit 22.9 % (37.0-47.0); Hemoglobin 7.3 g/dL (11.5-15.3); Lymphocytes # 0.7 10^3/uL (0.8-4.8); Lymphocytes % 73.2 %; Mean Corpuscular HGB Conc 31.9 g/dL (30.0-36.0); Mean Corpuscular Hemoglobin 29.9 pg (28.0-34.0); Mean Corpuscular Volume 93.9 fl (81-99); Mean Platelet Volume 11.1 fL (7.4-10.4); Monocytes # 0.1 10^3/uL (0.2-0.9); Monocytes % 13.4 %; Neutrophils % 4.2 %; Nucleated Red Blood Cells % 0 %; Platelet Count 74 10^3/cmm (130-400); Red Blood Count 2.44 10^6/uL (4.1-5.3); Red Cell Distribution Width 18.3 % (12.1-15.1)
[2021-09-19 05:13] LABS: Partial Thromboplastin Time 38.4 SECONDS (23.9-36.7)
[2021-09-19 05:14] LABS: Reticulocyte % 0.1 % (0.5-2.0)
[2021-09-19 05:24] LABS: Alanine Aminotransferase 7 U/L (0-33); Albumin Level 2.7 g/dL (3.5-5.2); Alkaline Phosphatase 67 IU/L (35-105); Anion Gap 11.8 (5-19); Aspartate Amino Transferase 8 U/L (0-32); Blood Urea Nitrogen 11 mg/dL (8-23); Calcium 7.9 mg/dL (8.5-10.5); Carbon Dioxide 25 mmol/L (22-29); Chloride 103 mmol/L (98-107); Globulin 2.6 g/dL (1.3-4.6); Glucose 129 mg/dL (65-115); Lactate Dehydrogenase 223 U/L (135-214); Magnesium 1.5 mg/dL (1.7-2.3); Osmolality Calculated 285 mOsm/kg (285-295); Sodium 137 mmol/L (136-145); Total Bilirubin 0.4 mg/dL (0.15-1.2); Total Protein 5.3 g/dL (6.6-8.7)
[2021-09-19 06:00] LABS: Slide Review Slide Review Perform
[2021-09-19 06:03] LABS: Neutrophils # 0.04 10^3/uL (1.8-7.7); Potassium 2.8 mmol/L (3.5-5.1)
[2021-09-19] MEDS: potassium chloride ER 20 mEq Tablet 60 MEQ PO (06:19)
[2021-09-19] MEDS: duloxetine 30 mg Capsule PO (08:38)
[2021-09-19] MEDS: pantoprazole DR 40 mg Tablet PO (08:38)
[2021-09-19] MEDS: levoFLOXacin 500 mg Tablet PO (08:39)
[2021-09-19] MEDS: nystatin cream 30 gm 1 APPLIC TOPICAL ×2 (08:39→18:00)
--- NOTE | 2021-09-19 23:26 | PM.PN ---
Subjective Subjective: Doing better today, has a little bit more strength, still with frequent diarrhea and not back to her baseline but not as bad. Prior chemo did not hit her like this and she is struggling. Talked with her about option for home health and she is agreeable to this. Had an opportunity to speak with Dr. Gold regarding her request to try to arrange her chemotherapy here in coordination with Dr. Brandon harp. Dr. Gold will take note of that and start the process next week. Vitals/I&O/Wt Last Vital Signs Temp 98.5 F 09/19/21 19:35 Pulse 97 09/19/21 19:35 Resp 17 09/19/21 19:35 BP 130/82 09/19/21 19:35 Pulse Ox 97 09/19/21 19:35 09/19/21 09/19/21 09/20/21 14:59 22:59 06:59 Intake Total 960 / 960 240 / 1200 Balance 960 / 960 240 / 1200 Weight last 48 hrs Weight 106.141 kg Physical Exam Narrative: Constitutional: Awake and alert, less ill-appearing, again having loose stools while I am in the room HEENT: Moist mucous membranes Respiratory: Clear to auscultation Cardiovascular: Regular rhythm Abdomen: Soft, mild tenderness, no guarding Neuro: Speech clear, face symmetric, able to provide more consistent history today Other: Right groin wounds not directly visualized today Data : 09/19/21 04:23 09/19/21 04:23 Other Labs: Laboratory Tests 09/19/21 04:23 Magnesium 1.5 L Lactate Dehydrogenase 223 H Micro: Microbiology 09/18/21 17:22 Stool Lactoferrin - Final Stool Enteric Pathogens (PCR) - Final Parasite Antigen Panel - Final C.difficile Toxin B Gene (PCR) - Final Occult Blood (FIT) - Final A&P Assessment and plan (1) Drug-induced nausea and vomiting: From recent chemotherapy escalating with each treatment Improved Status: Acute (2) Diarrhea: Has occurred to a significantly lesser degree after 2 prior episodes of chemotherapy but much worse this time. Likely medication related but cannot currently rule out inflammation or infection as cause Several episodes of stool with clots of blood and bright red blood streaking at presention Diarrhea persists Status: Acute Qualifiers: Diarrhea type: unspecified type Qualified Code(s): R19.7 - Diarrhea, unspecified (3) Dehydration: Secondary to above, electrolyte abnormalities either from dehydration or chemotherapy itself Improved Status: Acute (4) Electrolyte abnormality: Hypokalemia and hypomagnesemia Replacing Status: Acute (5) Drug-induced leukopenia: From recent chemotherapy, total wbc increased to 1000 but ANC to 400 On empiric levaquin Status: Acute (6) Anemia following use of chemotherapeutic drug: Slow decline Type and screen Status: Acute (7) Thrombocytopenia: From chemo Lovenox held Monitoring Status: Acute (8) On antineoplastic chemotherapy: She is unsure what her chemotherapeutic regimen is presently but has had now 3 doses of the most recent treatment Status: Acute (9) Acquired immunocompromised state: Secondary to cancer and current treatment Status: Acute (10) Ovarian cancer: Follows with Dr. Hare in [place] Dr Sewell will work on transition to chemo here locally while other distribution operation supervisor onc care in [place] with Dr Hare; has previously followed with Dr. Baugh for diffuse B-cell lymphoma Has been unable to have hysterectomy and oophorectomy due to organ edema by her report Status: Chronic (11) Right leg DVT: On Lovenox treatment dose at home and has IVC filter Currently held due to blood in stool and low platelets Status: Acute (12) Chronic anticoagulation: Lovenox, for DVT history Currently held Status: Acute (13) Bilateral hydronephrosis: With bilateral uteral stents secondary to cancer associated obstruction Status: Chronic (14) Port-A-Cath in place: Status: Chronic (15) Physical deconditioning: And difficulty meeting activities of daily living with current comorbid conditions and treatment plan Anticipate home health at discharge Status: Acute (16) Complicated urinary tract infection: Urine culture with greater than 100,000 CFU's of gamma hemolytic strep species. She has known bilateral ureteral stents due to obstruction from her cancer, complicating situation. Full identification is still pending. Present on admission On empiric Levaquin Status: Suspected (17) Pressure sore: Present on admission, located in the left groin and subsequent skin tissue areas 2 separate sites Status: Acute Plan KUB noted with moderate to severely distended loops of bowel. Given stool output which I personally witnessed at the bedside suspect chronic findings predominate related to malignancy. Antiemetic therapy Stool studies revealed positive Hemoccult and lactoferrin but were otherwise negative including C. difficile negative If diarrhea does not start to slow down will consider options Decrease rate of IV fluids Replace electrolytes Continue empiric Levaquin Type and screen Monitor counts Reverse isolation Lovenox currently held secondary to thrombocytopenia and blood in stools Follow-up pending urine culture results Consider appetite stimulant when a little bit more stable post recent chemo Monitor for signs suggestive of recurrent small bowel obstruction which she has had during her previous stay Monitor urine output Wound care to groin and other areas as indicated PT and OT evaluation be considered on a day-to-day basis Dr. 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 Plans are as noted above. Requiring IV fluids, electrolyte replacement, wound management in setting of recurrent diarrhea among other ordered care. Coding Level of Care Code Acute Bilingual Sales Consultant for [facility] Fwd Diagnoses Drug-induced nausea and vomiting R11.2; T50.905A Diarrhea R19.7 Diarrhea type: unspecified type Dehydration E86.0 Drug-induced leukopenia D70.2 On antineoplastic chemotherapy Z79.899 Acquired immunocompromised state D84.9 Ovarian cancer C56.9 Right leg DVT I82.401 Chronic anticoagulation Z79.01 Bilateral hydronephrosis N13.30 Port-A-Cath in place Z95.828 Physical deconditioning R53.81 Electrolyte abnormality E87.8 Anemia following use of chemotherapeutic drug D64.81 Thrombocytopenia D69.6 Complicated urinary tract infection N39.0 Pressure sore L89.90
[2021-09-20] VITALS (7 sets, daily range): BP systolic 124–160; BP diastolic 69–85; PULSE 73–96; RESP 16–18; TEMP 36.5–37.4; O2SAT 92–97
[2021-09-20] MEDS: magnesium sulfate premix 2 GM/50 ML PIGGYBACK IV (00:07)
[2021-09-20 01:33] LABS: Basophils % 0.6 %; Eosinophils # 0.1 10^3/uL (0.0-0.8); Eosinophils % 3.3 %; Hemoglobin 7.1 g/dL (11.5-15.3); Lymphocytes # 1.1 10^3/uL (0.8-4.8); Mean Corpuscular HGB Conc 32.3 g/dL (30.0-36.0); Mean Corpuscular Hemoglobin 30.5 pg (28.0-34.0); Mean Corpuscular Volume 94.4 fl (81-99); Mean Platelet Volume 10.4 fL (7.4-10.4); Monocytes # 0.3 10^3/uL (0.2-0.9); Monocytes % 16.7 %; Neutrophils % 19.4 %; Nucleated Red Blood Cells % 0 %; Platelet Count 53 10^3/cmm (130-400); Red Blood Count 2.33 10^6/uL (4.1-5.3); Red Cell Distribution Width 18.3 % (12.1-15.1); White Blood Count 1.8 10^3/uL (4.0-10.0)
[2021-09-20 02:29] LABS: Slide Review Slide Review Perform
[2021-09-20 02:30] LABS: Neutrophils # 0.35 10^3/uL (1.8-7.7)
[2021-09-20] MEDS: dextrose 5%-ns + KCl 20 20 MEQ/1,000 ML BAG 75 MEQ IV ×2 (03:25→16:21)
[2021-09-20 06:08] LABS: Blood Urea Nitrogen 7 mg/dL (8-23); Calcium 7.7 mg/dL (8.5-10.5); Carbon Dioxide 24 mmol/L (22-29); Chloride 106 mmol/L (98-107); Glucose 117 mg/dL (65-115); Magnesium 1.8 mg/dL (1.7-2.3); Osmolality Calculated 285 mOsm/kg (285-295); Phosphorus 2.4 mg/dL (2.5-4.5); Sodium 138 mmol/L (136-145)
[2021-09-20] MEDS: pantoprazole DR 40 mg Tablet PO (09:22)
[2021-09-20] MEDS: levoFLOXacin 500 mg Tablet PO (09:22)
[2021-09-20] MEDS: duloxetine 30 mg Capsule PO (09:22)
[2021-09-20] MEDS: nystatin cream 30 gm 1 APPLIC TOPICAL ×2 (11:39→20:41)
--- NOTE | 2021-09-20 15:08 | P.PN_ITS ---
Subjective Subjective: Diarrhea is lessening, though remains. Less streaking of blood. Energy again a little bit better. No new complaints. Tolerating some oral intake, not much appetite. Some available outside records were reviewed. Mrs. Levine had been offered admission at [facility] after most recent chemotherapy but declined, wanting to go home and come to the emergency room here if any issues. She has required transfusion of both blood and platelets after prior chemotherapy. She is agreeable should she require blood transfusion or platelet transfusion this time. Vitals/I&O/Wt Last Vital Signs Temp 98.1 F 09/20/21 11:28 Pulse 76 09/20/21 11:28 Resp 18 09/20/21 11:28 BP 124/75 09/20/21 11:28 Pulse Ox 95 09/20/21 11:28 09/20/21 09/20/21 09/20/21 06:59 14:59 22:59 Intake Total 1162.5 / 2362.5 240 / 240 Balance 1162.5 / 2362.5 240 / 240 Physical Exam Narrative: Constitutional: Awake and alert, again a little bit less ill-appearing Respiratory: Clear to auscultation anteriorly Cardiovascular: Regular rhythm Abdomen: Soft, no rebound or guarding, positive bowel sounds, not as tender Neuro: Speech clear, face symmetric, moves all extremities Other: Right groin wound dressing is intact, there are wounds to the overlying pannus less erythematous Data : 09/20/21 01:20 09/20/21 05:25 Micro: Microbiology 09/18/21 17:22 Stool Lactoferrin - Final Stool Enteric Pathogens (PCR) - Final Parasite Antigen Panel - Final C.difficile Toxin B Gene (PCR) - Final Occult Blood (FIT) - Final A&P Assessment and plan (1) Drug-induced nausea and vomiting: From recent chemotherapy escalating with each treatment Improved Status: Acute (2) Diarrhea: Has occurred to a significantly lesser degree after 2 prior episodes of chemotherapy but much worse this time. Likely medication related but cannot currently rule out inflammation or infection as cause Several episodes of stool with clots of blood and bright red blood streaking at presention Diarrhea persists though overall volume is decreasing Status: Acute Qualifiers: Diarrhea type: unspecified type Qualified Code(s): R19.7 - Diarrhea, unspecified (3) Dehydration: Secondary to above, electrolyte abnormalities either from dehydration or chemotherapy itself Improved Status: Acute (4) Electrolyte abnormality: Hypokalemia and hypomagnesemia Replacing Status: Acute (5) Drug-induced leukopenia: From recent chemotherapy, total wbc increased to 1000 but ANC to 400 On empiric levaquin Status: Acute (6) Anemia following use of chemotherapeutic drug: Slow decline Type and screen Status: Acute (7) Thrombocytopenia: From chemo Lovenox held Monitoring Status: Acute (8) On antineoplastic chemotherapy: She is unsure what her chemotherapeutic regimen is presently but has had now 3 doses of the most recent treatment Status: Acute (9) Acquired immunocompromised state: Secondary to cancer and current treatment Status: Acute (10) Ovarian cancer: Follows with Dr. 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 for diffuse B-cell lymphoma Has been unable to have hysterectomy and oophorectomy due to organ edema by her report Status: Chronic (11) Right leg DVT: On Lovenox treatment dose at home and has IVC filter Currently held due to blood in stool and low platelets Status: Acute (12) Chronic anticoagulation: Lovenox, for DVT history Currently held Status: Acute (13) Bilateral hydronephrosis: With bilateral uteral stents secondary to cancer associated obstruction Status: Chronic (14) Port-A-Cath in place: Status: Chronic (15) Physical deconditioning: And difficulty meeting activities of daily living with current comorbid conditions and treatment plan Anticipate home health at discharge Status: Acute (16) Complicated urinary tract infection: Urine culture with greater than 100,000 CFU's of gamma hemolytic strep species. She has known bilateral ureteral stents due to obstruction from her cancer, complicating situation. Full identification is still pending. Present on admission On empiric Levaquin Status: Suspected (17) Pressure sore: Present on admission, located in the left groin and subsequent skin tissue areas 2 separate sites Status: Acute Plan KUB noted with moderate to severely distended loops of bowel. Given stool output which I personally witnessed at the bedside suspect chronic findings p redominate related to malignancy. Low rate IV fluids Continue Levaquin Serial lab Type and screen performed on 09/20 Replace electrolytes as needed Lovenox currently held secondary to thrombocytopenia and blood in stools Has an IVC filter Resume Lovenox when able secondary to extensive DVT Urine culture 09/15 still pending Monitor oral intake Monitor for signs suggestive of recurrent small bowel obstruction Monitor urine output Wound care to groin and other areas as indicated PT and OT now that diarrhea has started to decrease Dr. Gold will follow-up in regards to arranging chemotherapy locally with remainder of acute CARDIAC NURSE PRACTITIONER Onc care in [place] According to patient plan is for surgery when recovered from most recent cycle of chemotherapy Home health has been arranged to start upon discharge when medically stable Plans were discussed with patient and she was given an opportunity to ask questions Agreeable to care as described Allow natural as per patient's wishes Attestations Medical Necessity Statement*: Requires ongoing inpatient stay for continued support with fluids, wound care to groin in the setting of significant chemo induced diarrhea, electrolyte replacement and anticipated transfusion. Chemotherapy known to cause significant side effects at dosing she has received Coding Level of Care Code Acute [place] Attendant for [facility] Fwd Diagnoses Drug-induced nausea and vomiting R11.2; T50.905A Diarrhea R19.7 Diarrhea type: unspecified type Dehydration E86.0 Electrolyte abnormality E87.8 Drug-induced leukopenia D70.2 Anemia following use of chemotherapeutic drug D64.81 Thrombocytopenia D69.6 On antineoplastic chemotherapy Z79.899 Acquired immunocompromised state D84.9 Ovarian cancer C56.9 Right leg DVT I82.401 Chronic anticoagulation Z79.01 Bilateral hydronephrosis N13.30 Port-A-Cath in place Z95.828 Physical deconditioning R53.81 Complicated urinary tract infection N39.0 Pressure sore L89.90
[2021-09-21] VITALS: BP 153/82; PULSE 91; RESP 18; TEMP 36.6; O2SAT 98
[2021-09-21 04:00] VITALS: BP 115/80; PULSE 89; RESP 17; TEMP 36.9; O2SAT 95
[2021-09-21 05:05] LABS: Basophils % 0.8 %; Eosinophils # 0.1 10^3/uL (0.0-0.8); Eosinophils % 3.8 %; Hematocrit 22.2 % (37.0-47.0); Hemoglobin 7.1 g/dL (11.5-15.3); Lymphocytes # 1.4 10^3/uL (0.8-4.8); Lymphocytes % 51.1 %; Mean Corpuscular Hemoglobin 30.3 pg (28.0-34.0); Mean Corpuscular Volume 94.9 fl (81-99); Mean Platelet Volume 11.5 fL (7.4-10.4); Monocytes # 0.2 10^3/uL (0.2-0.9); Neutrophils % 34.9 %; Nucleated Red Blood Cells % 0 %; Platelet Count 49 10^3/cmm (130-400); Red Blood Count 2.34 10^6/uL (4.1-5.3); Red Cell Distribution Width 18.5 % (12.1-15.1); White Blood Count 2.7 10^3/uL (4.0-10.0)
[2021-09-21] MEDS: dextrose 5%-ns + KCl 20 20 MEQ/1,000 ML BAG 75 MEQ IV (05:16)
[2021-09-21 05:42] LABS: Anion Gap 13.1 (5-19); Blood Urea Nitrogen 5 mg/dL (8-23); Calcium 7.7 mg/dL (8.5-10.5); Carbon Dioxide 23 mmol/L (22-29); Chloride 109 mmol/L (98-107); Glucose 119 mg/dL (65-115); Osmolality Calculated 292 mOsm/kg (285-295); Potassium 3.1 mmol/L (3.5-5.1); Sodium 142 mmol/L (136-145)
[2021-09-21 06:03] LABS: Neutrophils # 0.93 10^3/uL (1.8-7.7); Slide Review Slide Review Perform
[2021-09-21 07:24] VITALS: BP 119/72; PULSE 81; RESP 17; TEMP 36.8; O2SAT 96
[2021-09-21] MEDS: levoFLOXacin 500 mg Tablet PO (09:45)
[2021-09-21] MEDS: potassium chloride ER 20 mEq Tablet 40 MEQ PO (09:45)
[2021-09-21] MEDS: duloxetine 30 mg Capsule PO (09:45)
[2021-09-21] MEDS: pantoprazole DR 40 mg Tablet PO (09:46)
[2021-09-21 11:48] VITALS: BP 115/75; PULSE 85; RESP 17; TEMP 36.7; O2SAT 95
--- NOTE | 2021-09-21 13:06 | PC.SOCIAL ---
IMM Update pg 2 of IMM updated and reviewed w/ patient. Copy provided and copy dated, initialed and placed in chart.
[2021-09-21 15:23] VITALS: BP 110/65; PULSE 81; RESP 17; TEMP 36.8; O2SAT 96
[2021-09-21] MEDS: nystatin cream 30 gm 1 APPLIC TOPICAL ×2 (15:35→20:36)
--- NOTE | 2021-09-21 16:21 | PM.PN ---
Subjective Subjective: Doing better overall. Feels much stronger. Diarrhea has significantly decreased. She is unsure if there is still any blood in it. Appetite remains poor but trying. Vitals/I&O/Wt Last Vital Signs Temp 98.3 F 09/21/21 15:23 Pulse 81 09/21/21 15:23 Resp 17 09/21/21 15:23 BP 110/65 09/21/21 15:23 Pulse Ox 96 09/21/21 15:23 09/21/21 09/21/21 09/21/21 06:59 14:59 22:59 Intake Total 968.75 / 2418.75 480 / 480 Balance 968.75 / 2418.75 480 / 480 Physical Exam Narrative: Constitutional: Awake and alert, seen laying in bed, visiting today Respiratory: No accessory muscle use, mild tachynea after talking for a bit Cardiovascular: Regular Abdomen: Soft Neuro: Speech clear, face symmetric, moves all extremities Other: Right groin not evaluated today Data : 09/21/21 04:40 09/21/21 04:40 A&P Assessment and plan (1) Drug-induced nausea and vomiting: From recent chemotherapy escalating with each treatment Resolved Status: Acute (2) Diarrhea: Post-chemotherapy, much worse this cycle per patient. Reports had higher dose of chemotherapy. Several episodes of stool with clots of blood and bright red blood streaking at presentation, though nearly resolved in stool I saw 09/20 Lactoferrin +, Hemocult +, enteric bacterial panel +, parasite panel -, c diff - on 09/18 Stools getting a bit more formed, much less volume Status: Acute Qualifiers: Diarrhea type: unspecified type Qualified Code(s): R19.7 - Diarrhea, unspecified (3) Dehydration: Secondary to above, electrolyte abnormalities from both dehydration and chemotherapy Resolved Change fluids to KVO Status: Acute (4) Electrolyte abnormality: Hypokalemia and hypomagnesemia related to chemo and GI losses Replacing potassium daily Recheck magnesium and phosphorus tomorrow Status: Acute (5) Drug-induced leukopenia: From recent chemotherapy Increasing counts noted, at 2700 WBC with 930 ANC On empiric levaquin Status: Acute (6) Anemia following use of chemotherapeutic drug: Last round chemo sagar was at 7.2 hgb here, reports got one unit rbcs last cycle after transfer to [place] Type and screen completed 09/19 Has not yet been crossed matched Status: Acute (7) Thrombocytopenia: From chemotherapy Last sagar from chemo in terms of labs we have here was around 27, received 1 unit of platelets at [facility] after transfer Lovenox held Monitoring for sagar, bleeding, need to transfuse Status: Acute (8) On antineoplastic chemotherapy: She is unsure what her chemotherapeutic regimen is presently but has had now 3 doses of the most recent treatment, with last dose being the largest Status: Acute (9) Acquired immunocompromised state: Secondary to cancer and current chemotheraapy treatment Status: Acute (10) Ovarian cancer: Follows with Dr. 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 Has been unable to have hysterectomy and oophorectomy yet due to organ edema by her report; plan is for surgery in next few weeks in [place] with resumption of chemo several weeks later Status: Chronic (11) Right leg DVT: Presrent prior to admision On Lovenox treatment dose at home and has IVC filter Currently lovenox held due to blood in stool and low platelets plus anemia Status: Acute (12) Chronic anticoagulation: Lovenox, for DVT history Lovenox currently held due to low platelets and blood in stool at presentation plus anemia Status: Acute (13) Complicated urinary tract infection: Urine culture with greater than 100,000 CFU Vancomycin resistant enterococcus faecium. She has known bilateral ureteral stents due to obstruction from her cancer, complicating situation. Present on admission Has been on empiric levaquin through 09/21 when stopped Status: Suspected (14) Vancomycin resistant Enterococcus infection: In Urine, may not be true infection, but with post chemo symptoms, which have been much worse this cycle, bilateral ureteral stents and active chemotherapy, covering empirically for now Had vancomycin sensitive enterococcus, different species twice in August Present on admission Linezolid Status: Acute (15) Bilateral hydronephrosis: With bilateral uteral stents secondary to cancer associated obstruction Status: Chronic (16) Pressure sore: Present on admission, located in the left groin and adjacent panus Status: Acute Qualifiers: Pressure injury location: other site Pressure injury stage: stage 2 Qualified Code(s): L89.892 - Pressure ulcer of other site, stage 2 (17) Physical deconditioning: And difficulty meeting activities of daily living with current comorbid conditions and treatment plan Home health referral ordered to include PT, nurses aide and skilled nurse at time of discharge Status: Acute (18) Port-A-Cath in place: Status: Chronic Plan KUB noted with moderate to severely distended loops of bowel. Given stool output which I personally witnessed at the bedside suspect chronic findings predominate related to malignancy. Fluids at [facility] On empiric levaquin due to neutropenia Linezolid added for VRE in urine given circumstances Serial lab and electrolyte repacement Type and screen performed on 09/20 Has not been cross matched Lovenox held secondary to thrombocytopenia, anemia and blood in stools Has an IVC filter Resume Lovenox when able secondary to extensive DVT Oral intake improving thought appetite remains suppressed No signs of bowel obstruction Making urine Wound care to groin and other areas as indicated PT and OT following Dr. Gold to follow-up in regards to arranging chemotherapy locally with remainder of acute GYNOnc care in [place] with Dr Hare According to patient plan is for surgery when recovered from most recent cycle of chemotherapy Home health has been arranged to start upon discharge when medically stable Plans were discussed with patient as well as her and she was given an opportunity to ask questions Both agreeable with plan of care as described Allow natural as per patient's wishes Attestations Medical Necessity Statement*: Requires ongoing inpatient for recheck of labs in the morning given that she is right at her prior sagar necessitating blood transfusion, continue to work on increasing activity to facilitate independent ADLs, monitoring off anticoagulation in the setting of a known extensive DVT, wound care. Anticipate possible disposition tomorrow or the following day depending on counts given improvement from yesterday to today. Coding Level of Care Code Acute Campaign Consultant for [facility] Fwd Diagnoses Drug-induced nausea and vomiting R11.2; T50.905A Diarrhea R19.7 Diarrhea type: unspecified type Dehydration E86.0 Electrolyte abnormality E87.8 Drug-induced leukopenia D70.2 Anemia following use of chemotherapeutic drug D64.81 Thrombocytopenia D69.6 On antineoplastic chemotherapy Z79.899 Acquired immunocompromised state D84.9 Ovarian cancer C56.9 Right leg DVT I82.401 Chronic anticoagulation Z79.01 Bilateral hydronephrosis N13.30 Port-A-Cath in place Z95.828 Physical deconditioning R53.81 Complicated urinary tract infection N39.0 Pressure sore L89.892 Pressure injury location: other site Pressure injury stage: stage 2 Vancomycin resistant Enterococcus infection A49.1; Z16.21
[2021-09-21 20:00] VITALS: BP 101/67; PULSE 115; RESP 18; TEMP 36.8; O2SAT 91
[2021-09-21] MEDS: linezolid 600 mg Tablet PO (20:30)
[2021-09-22] VITALS (13 sets, daily range): BP systolic 116–146; BP diastolic 73–91; PULSE 85–94; RESP 16–20; TEMP 36.6–37.2; O2SAT 95–100
[2021-09-22] MEDS: dextrose 5%-ns + KCl 20 20 MEQ/1,000 ML BAG 75 MEQ IV ×2 (00:14→18:35)
[2021-09-22 04:41] LABS: Basophils % 0.4 %; Eosinophils # 0.1 10^3/uL (0.0-0.8); Eosinophils % 2.2 %; Hematocrit 21.5 % (37.0-47.0); Hemoglobin 6.8 g/dL (11.5-15.3); Lymphocytes # 1.4 10^3/uL (0.8-4.8); Lymphocytes % 51.8 %; Mean Corpuscular HGB Conc 31.6 g/dL (30.0-36.0); Mean Corpuscular Volume 94.7 fl (81-99); Mean Platelet Volume 11.3 fL (7.4-10.4); Monocytes # 0.2 10^3/uL (0.2-0.9); Monocytes % 8.8 %; Neutrophils % 36.4 %; Nucleated Red Blood Cells % 0 %; Platelet Count 37 10^3/cmm (130-400); Red Blood Count 2.27 10^6/uL (4.1-5.3); Red Cell Distribution Width 18.3 % (12.1-15.1); White Blood Count 2.7 10^3/uL (4.0-10.0)
[2021-09-22 05:04] LABS: Anion Gap 12.4 (5-19); Blood Urea Nitrogen 4 mg/dL (8-23); Calcium 7.8 mg/dL (8.5-10.5); Carbon Dioxide 23 mmol/L (22-29); Chloride 110 mmol/L (98-107); Glucose 123 mg/dL (65-115); Magnesium 1.3 mg/dL (1.7-2.3); Osmolality Calculated 292 mOsm/kg (285-295); Phosphorus 3.1 mg/dL (2.5-4.5); Potassium 3.4 mmol/L (3.5-5.1); Slide Review Slide Review Perform; Sodium 142 mmol/L (136-145)
[2021-09-22] MEDS: linezolid 600 mg Tablet PO ×2 (08:18→20:42)
[2021-09-22] MEDS: pantoprazole DR 40 mg Tablet PO (08:18)
[2021-09-22] MEDS: duloxetine 30 mg Capsule PO (08:18)
[2021-09-22] MEDS: levoFLOXacin 500 mg Tablet PO (08:18)
[2021-09-22] MEDS: nystatin cream 30 gm 1 APPLIC TOPICAL ×2 (08:18→18:43)
[2021-09-22] MEDS: magnesium sulfate premix 4 GM/100 ML PREMIX IV (09:40)
[2021-09-22] MEDS: potassium chloride ER 20 mEq Tablet 40 MEQ PO (09:40)
--- NOTE | 2021-09-22 10:22 | PC.OT ---
HOLD OT TREATMENT TODAY DUE TO HGB: 6.8
[2021-09-22] MEDS: sodium chloride 0.9% (100 ml) 100 ML 150 ML (13:00)
--- NOTE | 2021-09-22 14:27 | PM.PN ---
Subjective Subjective: Seen this morning. Patient states she feels well. Hemoglobin 6.8. 1 unit of blood ordered. She states she would like to move her care to [place] after her hysterectomy surgery in [place]. Vitals/I&O/Wt Last Vital Signs Temp 98.1 F 09/22/21 14:05 Pulse 90 09/22/21 14:05 Resp 18 09/22/21 14:05 BP 118/74 09/22/21 13:05 Pulse Ox 100 09/22/21 14:05 09/21/21 09/22/21 09/22/21 22:59 06:59 14:59 Intake Total 1000 / 1480 100 / 100 Output Total 600 / 600 Balance 400 / 880 100 / 100 Physical Exam Narrative: General: Alert oriented x3, patient seen sitting up on edge of bed appearing very comfortable. HEENT: Normocephalic, atraumatic, EOMI, breathing normally, obese female Cardio: Regular rate rhythm, normal S1-S2, no murmurs, Mediport in place, skin around it dry nonerythematous Respiratory: Good bilateral air entry, no wheezes no rhonchi appreciated GI: Abdomen soft, nontender, bulky abdomen, bowel sounds + Behavior: Appropriate and cooperative Extremities: Trace to 2+ edema bilateral lower extremities, no cyanosis Data : 09/22/21 04:12 09/22/21 04:12 A&P Assessment and plan (1) Port-A-Cath in place: Status: Chronic (2) Bilateral hydronephrosis: Status: Chronic (3) Right leg DVT: Status: Acute (4) Bilateral ureteral obstruction: Status: Acute (5) Diarrhea: Status: Acute Qualifiers: Diarrhea type: unspecified type Qualified Code(s): R19.7 - Diarrhea, unspecified (6) Acquired immunocompromised state: Status: Acute (7) Ovarian cancer: Status: Chronic (8) Drug-induced nausea and vomiting: Status: Acute (9) Dehydration: Status: Acute (10) On antineoplastic chemotherapy: Status: Acute (11) Chronic anticoagulation: Status: Acute (12) Drug-induced leukopenia: Status: Acute (13) Physical deconditioning: Status: Acute (14) Electrolyte abnormality: Status: Acute (15) Anemia following use of chemotherapeutic drug: Status: Acute (16) Thrombocytopenia: Status: Acute (17) Complicated urinary tract infection: Status: Suspected (18) Pressure sore: Status: Acute Qualifiers: Pressure injury location: other site Pressure injury stage: stage 2 Qualified Code(s): L89.892 - Pressure ulcer of other site, stage 2 (19) Vancomycin resistant Enterococcus infection: Status: Acute Plan #UTI, Enterococcus VRE #Chemotherapy induced diarrhea #Anemia, chronic, status post 1 unit packed RBC #Deconditioning #Protein calorie malnutrition #History of right lower extremity DVT intolerant to anticoagulation due to anemia status post IVC filter placement #History of bilateral hydronephrosis secondary to ovarian mass #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 Continue patient on linezolid for UTI.? Urine cultures growing Enterococcus.? Sensitive to linezolid. ? She will continue to see Dr. Brandon harp in [place] for her endometrial carcinoma as follow-up as an outpatient ? Continue to supplement potassium ? Status post 1 units packed RBC.? Continue monitoring hemoglobin. Order 1 more unit today ? Thrombocytopenia on admission.? 37,000 today.? No evidence of bleeding.? We will continue to monitor. -Continue to replete electrolytes ? Continue to monitor for temperature.? Afebrile so far. ? He states she is feeling a lot better compared to when she first came in. ? Nutrition consult appreciated. -We will use Lomotil versus Imodium if needed for diarrhea but this has improved so far. DNR/DNI Attestations Medical Necessity Statement*: Still pancytopenic. Continue to transfuse and monitor. DC in 24-48 hours once counts better. Will need to await culture sensitivity for UTI as well. Coding Level of Care Code Acute Special Education Math Teacher for [facility] Fwd Diagnoses Port-A-Cath in place Z95.828 Bilateral hydronephrosis N13.30 Right leg DVT I82.401 Bilateral ureteral obstruction N13.5 Diarrhea R19.7 Diarrhea type: unspecified type Acquired immunocompromised state D84.9 Ovarian cancer C56.9 Drug-induced nausea and vomiting R11.2; T50.905A Dehydration E86.0 On antineoplastic chemotherapy Z79.899 Chronic anticoagulation Z79.01 Drug-induced leukopenia D70.2 Physical deconditioning R53.81 Electrolyte abnormality E87.8 Anemia following use of chemotherapeutic drug D64.81 Thrombocytopenia D69.6 Complicated urinary tract infection N39.0 Pressure sore L89.892 Pressure injury location: other site Pressure injury stage: stage 2 Vancomycin resistant Enterococcus infection A49.1; Z16.21
[2021-09-23] VITALS (9 sets, daily range): BP systolic 124–166; BP diastolic 72–88; PULSE 78–96; RESP 13–18; TEMP 36.1–37.2; O2SAT 95–98
[2021-09-23 05:15] LABS: Eosinophils # 0.1 10^3/uL (0.0-0.8); Eosinophils % 1.8 %; Hematocrit 24.3 % (37.0-47.0); Lymphocytes # 1.3 10^3/uL (0.8-4.8); Lymphocytes % 46.7 %; Mean Corpuscular HGB Conc 32.9 g/dL (30.0-36.0); Mean Corpuscular Hemoglobin 30.1 pg (28.0-34.0); Mean Corpuscular Volume 91.4 fl (81-99); Mean Platelet Volume 10.7 fL (7.4-10.4); Monocytes # 0.3 10^3/uL (0.2-0.9); Monocytes % 9.1 %; Neutrophils # 1.19 10^3/uL (1.8-7.7); Neutrophils % 41.7 %; Nucleated Red Blood Cells % 0 %; Platelet Count 29 10^3/cmm (130-400); Red Blood Count 2.66 10^6/uL (4.1-5.3); Red Cell Distribution Width 18.9 % (12.1-15.1); White Blood Count 2.9 10^3/uL (4.0-10.0)
[2021-09-23 05:30] LABS: Anion Gap 12.6 (5-19); Blood Urea Nitrogen 5 mg/dL (8-23); Calcium 7.8 mg/dL (8.5-10.5); Carbon Dioxide 24 mmol/L (22-29); Chloride 107 mmol/L (98-107); Glucose 112 mg/dL (65-115); Magnesium 1.8 mg/dL (1.7-2.3); Osmolality Calculated 288 mOsm/kg (285-295); Potassium 3.6 mmol/L (3.5-5.1); Sodium 140 mmol/L (136-145)
[2021-09-23 05:35] LABS: Slide Review Slide Review Perform
[2021-09-23] MEDS: levoFLOXacin 500 mg Tablet PO (08:23)
[2021-09-23] MEDS: pantoprazole DR 40 mg Tablet PO (08:23)
[2021-09-23] MEDS: linezolid 600 mg Tablet PO ×2 (08:23→18:35)
[2021-09-23] MEDS: duloxetine 30 mg Capsule PO (08:23)
[2021-09-23] MEDS: nystatin cream 30 gm 1 APPLIC TOPICAL ×2 (08:26→18:36)
--- NOTE | 2021-09-23 12:46 | P.PN_ITS ---
Subjective Subjective: Seen this morning. Platelets 29,000. Hemoglobin 8.0. Vitals/I&O/Wt Last Vital Signs Temp 97.0 F L 09/23/21 11:19 Pulse 86 09/23/21 11:19 Resp 16 09/23/21 11:19 BP 151/85 09/23/21 11:19 Pulse Ox 95 09/23/21 11:19 09/22/21 09/23/21 09/23/21 22:59 06:59 14:59 Intake Total 350 / 1450 1000 / 2450 Balance 350 / 1450 1000 / 2450 Physical Exam Narrative: General: Alert oriented x3, patient seen sitting up on edge of bed appearing very comfortable. HEENT: Normocephalic, atraumatic, EOMI, breathing normally, obese female Cardio: Regular rate rhythm, normal S1-S2, no murmurs, Mediport in place, skin around it dry nonerythematous Respiratory: Good bilateral air entry, no wheezes no rhonchi appreciated GI: Abdomen soft, nontender, bulky abdomen, bowel sounds + Behavior: Appropriate and cooperative Extremities: Trace to 2+ edema bilateral lower extremities, no cyanosis Data : 09/23/21 04:35 09/23/21 04:35 A&P Assessment and plan (1) Port-A-Cath in place: Status: Chronic (2) Bilateral hydronephrosis: Status: Chronic (3) Right leg DVT: Status: Acute (4) Bilateral ureteral obstruction: Status: Acute (5) Diarrhea: Status: Acute Qualifiers: Diarrhea type: unspecified type Qualified Code(s): R19.7 - Diarrhea, unspecified (6) Acquired immunocompromised state: Status: Acute (7) Chronic anticoagulation: Status: Acute (8) Drug-induced leukopenia: Status: Acute (9) Physical deconditioning: Status: Acute (10) Electrolyte abnormality: Status: Acute (11) Anemia following use of chemotherapeutic drug: Status: Acute (12) Complicated urinary tract infection: Status: Suspected (13) Vancomycin resistant Enterococcus infection: Status: Acute (14) Thrombocytopenia: Status: Acute Plan #UTI, Enterococcus VRE #Chemotherapy induced diarrhea #Anemia, chronic, status post 1 unit packed RBC #Deconditioning #Protein calorie malnutrition #History of right lower extremity DVT intolerant to anticoagulation due to anemia status post IVC filter placement #History of bilateral hydronephrosis secondary to ovarian mass #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 Continue patient on linezolid for UTI.? Urine cultures growing Enterococcus.? Sensitive to linezolid. ? She will continue to see Dr. rBandon harp in [place] for her endometrial carcinoma as follow-up as an outpatient ? Continue to supplement potassium ? Status post 2 units packed RBC.? Continue monitoring hemoglobin. Hemoglobin 8.0 today. ? Thrombocytopenia on admission.? 29,000 today.? No evidence of bleeding.? We will continue to monitor. Order platelets 1 unit. Recheck labs. -Continue to replete electrolytes ? Continue to monitor for temperature.? Afebrile so far. -We will use Lomotil versus Imodium if needed for diarrhea but this has improved so far. DNR/DNI DVT prophylaxis: SCDs Patient would like to follow-up with Dr. Gold here for her future chemotherapy. Attestations Medical Necessity Statement*: Still pancytopenic. Continue to transfuse and monitor. DC in 24-48 hours once counts better. Coding Level of Care Code Acute Software Implementation Specialist for [facility] Fwd Diagnoses Port-A-Cath in place Z95.828 Bilateral hydronephrosis N13.30 Right leg DVT I82.401 Bilateral ureteral obstruction N13.5 Diarrhea R19.7 Diarrhea type: unspecified type Acquired immunocompromised state D84.9 Chronic anticoagulation Z79.01 Drug-induced leukopenia D70.2 Physical deconditioning R53.81 Electrolyte abnormality E87.8 Anemia following use of chemotherapeutic drug D64.81 Complicated urinary tract infection N39.0 Vancomycin resistant Enterococcus infection A49.1; Z16.21 Thrombocytopenia D69.6
[2021-09-23] MEDS: potassium chloride ER 20 mEq Tablet 40 MEQ PO (15:42)
[2021-09-23] MEDS: lanolin oint 7 gm 1 APPLIC TOPICAL (15:42)
[2021-09-23] MEDS: sodium chloride 0.9% (100 ml) 100 ML 50 ML (15:42)
[2021-09-24] VITALS: BP 113/67; PULSE 89; RESP 16; TEMP 36.8; O2SAT 97
[2021-09-24 04:00] VITALS: BP 114/62; PULSE 85; RESP 14; TEMP 36.8; O2SAT 98
[2021-09-24 07:01] LABS: Basophils % 0.3 %; Eosinophils % 1.4 %; Hematocrit 24.5 % (37.0-47.0); Hemoglobin 7.4 g/dL (11.5-15.3); Lymphocytes # 1.4 10^3/uL (0.8-4.8); Lymphocytes % 47.6 %; Mean Corpuscular HGB Conc 30.2 g/dL (30.0-36.0); Mean Corpuscular Hemoglobin 30.2 pg (28.0-34.0); Mean Platelet Volume 9.3 fL (7.4-10.4); Monocytes # 0.2 10^3/uL (0.2-0.9); Monocytes % 7.7 %; Neutrophils # 1.21 10^3/uL (1.8-7.7); Neutrophils % 42.3 %; Nucleated Red Blood Cells % 0 %; Platelet Count 34 10^3/cmm (130-400); Red Blood Count 2.45 10^6/uL (4.1-5.3); Red Cell Distribution Width 18.6 % (12.1-15.1); White Blood Count 2.9 10^3/uL (4.0-10.0)
[2021-09-24 07:37] VITALS: BP 118/67; PULSE 83; RESP 16; TEMP 36.9; O2SAT 97
[2021-09-24] MEDS: duloxetine 30 mg Capsule PO (08:49)
[2021-09-24] MEDS: linezolid 600 mg Tablet PO ×2 (08:49→21:10)
[2021-09-24] MEDS: levoFLOXacin 500 mg Tablet PO (08:49)
[2021-09-24] MEDS: pantoprazole DR 40 mg Tablet PO (08:49)
[2021-09-24] MEDS: nystatin cream 30 gm 1 APPLIC TOPICAL (08:50)
--- NOTE | 2021-09-24 10:01 | PC.NURSE ---
This nurse assumed care of patient this AM, patient found to be resting in bed, no c/o pain, AAOx4, VSS, no needs at this time. Room clean and clutter free with call light in reach. Hopeful to go home today depending on lab results. Will continue to monitor.
[2021-09-24 11:40] VITALS: BP 112/69; PULSE 86; RESP 16; TEMP 36.8; O2SAT 98
[2021-09-24 15:35] VITALS: BP 114/73; PULSE 83; RESP 17; TEMP 36.8; O2SAT 98
--- NOTE | 2021-09-24 16:03 | P.PN_ITS ---
Subjective Subjective: seen this AM. HB dropped again to 7.4, platelet 00402, she got 1 unit platelet yesterday. asymptomatic, no acute events overnight Vitals/I&O/Wt Last Vital Signs Temp 98.2 F 09/24/21 15:35 Pulse 83 09/24/21 15:35 Resp 17 09/24/21 15:35 BP 114/73 09/24/21 15:35 Pulse Ox 98 09/24/21 15:35 09/24/21 09/24/21 09/24/21 06:59 14:59 22:59 Intake Total 120 / 120 Output Total 750 / 750 Balance -630 / -630 Physical Exam Narrative: General: Alert oriented x3, patient seen sitting up on edge of bed appearing very comfortable. HEENT: Normocephalic, atraumatic, EOMI, breathing normally, obese female Cardio: Regular rate rhythm, normal S1-S2, no murmurs, Mediport in place, skin around it dry nonerythematous Respiratory: Good bilateral air entry, no wheezes no rhonchi appreciated GI: Abdomen soft, nontender, bulky abdomen, bowel sounds + Behavior: Appropriate and cooperative Extremities: Trace to 2+ edema bilateral lower extremities, no cyanosis Data : 09/24/21 16:10 09/23/21 04:35 A&P Assessment and plan (1) Port-A-Cath in place: Status: Chronic (2) Right leg DVT: Status: Acute (3) Bilateral hydronephrosis: Status: Chronic (4) Bilateral ureteral obstruction: Status: Acute (5) Drug-induced leukopenia: Status: Acute (6) Electrolyte abnormality: Status: Acute (7) Anemia following use of chemotherapeutic drug: Status: Acute (8) Thrombocytopenia: Status: Acute (9) Complicated urinary tract infection: Status: Suspected (10) Vancomycin resistant Enterococcus infection: Status: Acute (11) Diarrhea: Status: Acute Qualifiers: Diarrhea type: unspecified type Qualified Code(s): R19.7 - Diarrhea, unspecified (12) Ovarian cancer: Status: Chronic Plan #UTI, Enterococcus VRE #Chemotherapy induced diarrhea #Anemia, chronic, status post 2 unit packed RBC #Deconditioning #Protein calorie malnutrition #History of right lower extremity DVT intolerant to anticoagulation due to anemia status post IVC filter placement #History of bilateral hydronephrosis secondary to ovarian mass #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 Continue patient on linezolid for UTI.? Urine cultures growing Enterococcus.? Sensitive to linezolid. ? She will continue to see Dr. Brandon harp in [place] for her endometrial carcinoma as follow-up as an outpatient ? Continue to supplement potassium ? Status post 2 units packed RBC.? Continue monitoring hemoglobin.? Hemoglobin 7.4 today. ? Thrombocytopenia on admission.?s/p 1 unit platelets, 86569 today.? No evide nce of bleeding.? We will continue to monitor.? -Continue to replete electrolytes ? Continue to monitor for temperature.? Afebrile so far. -We will use Lomotil versus Imodium if needed for diarrhea but this has improved so far. DNR/DNI DVT prophylaxis: SCDs Patient would like to follow-up with Dr. Gold here for her future chemotherapy. Attestations Medical Necessity Statement*: Still pancytopenic. Continue to transfuse and monitor. DC in 24-48 hours once counts better. Coding Level of Care Code Acute Encephalographer for Chg Fwd Diagnoses Port-A-Cath in place Z95.828 Right leg DVT I82.401 Bilateral hydronephrosis N13.30 Bilateral ureteral obstruction N13.5 Drug-induced leukopenia D70.2 Electrolyte abnormality E87.8 Anemia following use of chemotherapeutic drug D64.81 Thrombocytopenia D69.6 Complicated urinary tract infection N39.0 Vancomycin resistant Enterococcus infection A49.1; Z16.21 Diarrhea R19.7 Diarrhea type: unspecified type Ovarian cancer C56.9
[2021-09-24 16:21] LABS: Basophils % 0.3 %; Eosinophils # 0.1 10^3/uL (0.0-0.8); Eosinophils % 1.5 %; Hematocrit 25.1 % (37.0-47.0); Hemoglobin 8.3 g/dL (11.5-15.3); Lymphocytes # 1.7 10^3/uL (0.8-4.8); Lymphocytes % 49.6 %; Mean Corpuscular HGB Conc 33.1 g/dL (30.0-36.0); Mean Corpuscular Hemoglobin 30.2 pg (28.0-34.0); Mean Corpuscular Volume 91.3 fl (81-99); Mean Platelet Volume 9.6 fL (7.4-10.4); Monocytes # 0.3 10^3/uL (0.2-0.9); Monocytes % 8.2 %; Neutrophils # 1.35 10^3/uL (1.8-7.7); Neutrophils % 39.5 %; Nucleated Red Blood Cells % 0 %; Platelet Count 38 10^3/cmm (130-400); Red Blood Count 2.75 10^6/uL (4.1-5.3); White Blood Count 3.4 10^3/uL (4.0-10.0)
[2021-09-24 20:00] VITALS: BP 130/65; PULSE 102; RESP 12; TEMP 37; O2SAT 95
[2021-09-25] VITALS (9 sets, daily range): BP systolic 100–143; BP diastolic 65–88; PULSE 87–100; RESP 16–20; TEMP 36.8–37.3; O2SAT 93–96
[2021-09-25 03:57] LABS: Basophils % 0.3 %; Eosinophils % 1.3 %; Hematocrit 25.8 % (37.0-47.0); Hemoglobin 8.3 g/dL (11.5-15.3); Lymphocytes # 1.6 10^3/uL (0.8-4.8); Mean Corpuscular HGB Conc 32.2 g/dL (30.0-36.0); Mean Corpuscular Hemoglobin 30.5 pg (28.0-34.0); Mean Corpuscular Volume 94.9 fl (81-99); Mean Platelet Volume 9.2 fL (7.4-10.4); Monocytes # 0.2 10^3/uL (0.2-0.9); Monocytes % 6.9 %; Neutrophils # 1.23 10^3/uL (1.8-7.7); Neutrophils % 40.2 %; Nucleated Red Blood Cells % 0 %; Platelet Count 34 10^3/cmm (130-400); Red Blood Count 2.72 10^6/uL (4.1-5.3); Red Cell Distribution Width 17.8 % (12.1-15.1); White Blood Count 3.1 10^3/uL (4.0-10.0)
[2021-09-25 04:35] LABS: Anion Gap 17.3 (5-19); Blood Urea Nitrogen 7 mg/dL (8-23); Carbon Dioxide 22 mmol/L (22-29); Chloride 100 mmol/L (98-107); Glucose 92 mg/dL (65-115); Osmolality Calculated 280 mOsm/kg (285-295); Potassium 3.3 mmol/L (3.5-5.1); Sodium 136 mmol/L (136-145)
[2021-09-25] MEDS: duloxetine 30 mg Capsule PO (08:15)
[2021-09-25] MEDS: pantoprazole DR 40 mg Tablet PO (08:15)
[2021-09-25] MEDS: linezolid 600 mg Tablet PO ×2 (08:15→22:18)
[2021-09-25] MEDS: potassium chloride ER 20 mEq Tablet 40 MEQ PO (08:15)
[2021-09-25] MEDS: nystatin cream 30 gm 1 APPLIC TOPICAL (08:19)
--- NOTE | 2021-09-25 09:16 | PC.SOCIAL ---
IMM Update Imm updated with patient, copy of page 2 provided. Patient verbalized understanding. Copy initialed, dated and timed, placed in chart.
[2021-09-25 15:30] LABS: Basophils % 0.4 %; Eosinophils % 1.1 %; Hematocrit 26.7 % (37.0-47.0); Hemoglobin 8.3 g/dL (11.5-15.3); Lymphocytes # 1.2 10^3/uL (0.8-4.8); Lymphocytes % 45.2 %; Mean Corpuscular HGB Conc 31.1 g/dL (30.0-36.0); Mean Corpuscular Hemoglobin 29.9 pg (28.0-34.0); Mean Platelet Volume 10.5 fL (7.4-10.4); Monocytes # 0.2 10^3/uL (0.2-0.9); Monocytes % 7.7 %; Neutrophils # 1.23 10^3/uL (1.8-7.7); Neutrophils % 45.2 %; Nucleated Red Blood Cells % 0 %; Platelet Count 32 10^3/cmm (130-400); Red Blood Count 2.78 10^6/uL (4.1-5.3); Red Cell Distribution Width 17.8 % (12.1-15.1); White Blood Count 2.7 10^3/uL (4.0-10.0)
--- NOTE | 2021-09-25 16:01 | PM.PN ---
Subjective Subjective: seen this AM. Platelets trended down. Pt not willing to go home with downward trend of labs. She agreed to recheck labs in afternoon if lower she would like to stay. Platelet unit ordered today. Vitals/I&O/Wt Last Vital Signs Temp 98.2 F 09/25/21 12:00 Pulse 90 09/25/21 12:00 Resp 16 09/25/21 12:00 BP 119/80 09/25/21 12:00 Pulse Ox 95 09/25/21 12:00 09/25/21 09/25/21 09/25/21 06:59 14:59 22:59 Intake Total 280 / 640 Output Total 0 / 950 250 / 250 Balance 280 / -310 -250 / -250 Weight last 48 hrs Weight 100.516 kg Physical Exam Narrative: General: Alert snow ented x3, patient seen sitting up on edge of bed appea ring very comforta ble. HEENT: Normoc ephalic, atraumati c, EOMI, breathing normally, obese f emale Cardio: Regu lar rate rhythm, n ormal S1-S2, no mu rmurs, Mediport in place, skin aroun d it dry nonerythe matous Respiratory : Good bilateral a ir entry, no wheez es no rhonchi appr eciated GI: Abdome n soft, nontender, bulky abdomen, raman wel sounds + Behav ior: Appropriate a nd cooperative Ext remities: Trace to 2+ edema bilatera l lower extremitie s, no cyanosis Data : 09/25/21 14:49 09/25/21 03:37 A&P Assessment and plan (1) Port-A-Cath in place: Status: Chronic (2) Bilateral hydronephrosis: Status: Chronic (3) Diarrhea: Status: Acute Qualifiers: Diarrhea type: unspecified type Qualified Code(s): R19.7 - Diarrhea, unspecified (4) Acquired immunocompromised state: Status: Acute (5) Drug-induced leukopenia: Status: Acute (6) Physical deconditioning: Status: Acute (7) Electrolyte abnormality: Status: Acute (8) Anemia following use of chemotherapeutic drug: Status: Acute (9) Thrombocytopenia: Status: Acute (10) Complicated urinary tract infection: Status: Suspected (11) Vancomycin resistant Enterococcus infection: Status: Acute Plan #UTI, Enterococcus VRE #Chemotherapy induced diarrhea #Anemia, chronic, status post 2 unit packed RBC #Deconditioning #Protein calorie malnutrition #History of right lower extremity DVT intolerant to anticoagulation due to anemia status post IVC filter placement #History of bilateral hydronephrosis secondary to ovarian mass #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 Continue patient on linezolid for UTI.? Urine cultures growing Enterococcus.? Sensitive to linezolid. ? She will continue to see Dr. Brandon harp in [place] for her endometrial carcinoma as follow-up as an outpatient ? Continue to supplement potassium ? Status post 2 units packed RBC.? Continue monitoring hemoglobin.? Hemoglobin 7.4 today. ? Thrombocytopenia on admission.?s/p 1 unit platelets,? platelet trending down again. WIll order additional unit today. -Continue to replete electrolytes ? Continue to monitor for temperature.? Afebrile so far. -We will use Lomotil versus Imodium if needed for diarrhea but this has improved so far. DNR/DNI DVT prophylaxis: SCDs Patient would like to follow-up with Dr. Gold here for her future chemotherapy. Attestations Medical Necessity Statement*: Platelet trending down again today. 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
[2021-09-26] VITALS (8 sets, daily range): BP systolic 92–161; BP diastolic 62–89; PULSE 86–115; RESP 16–18; TEMP 36.9; O2SAT 90–97
[2021-09-26] MEDS: sodium chloride 0.9% (100 ml) 100 ML (06:01)
[2021-09-26 06:24] LABS: Alanine Aminotransferase 12 U/L (0-33); Albumin Level 2.9 g/dL (3.5-5.2); Alkaline Phosphatase 71 IU/L (35-105); Blood Urea Nitrogen 8 mg/dL (8-23); Calcium 8.1 mg/dL (8.5-10.5); Carbon Dioxide 23 mmol/L (22-29); Chloride 101 mmol/L (98-107); Globulin 2.5 g/dL (1.3-4.6); Glucose 81 mg/dL (65-115); Osmolality Calculated 281 mOsm/kg (285-295); Sodium 137 mmol/L (136-145); Total Bilirubin 0.4 mg/dL (0.15-1.2); Total Protein 5.4 g/dL (6.6-8.7)
[2021-09-26 06:32] LABS: Anion Gap 16.7 (5-19); Aspartate Amino Transferase 16 U/L (0-32); Potassium 3.7 mmol/L (3.5-5.1)
[2021-09-26 08:53] LABS: Eosinophils # 0.1 10^3/uL (0.0-0.8); Eosinophils % 2.4 %; Hematocrit 26.1 % (37.0-47.0); Hemoglobin 8.2 g/dL (11.5-15.3); Lymphocytes # 1.3 10^3/uL (0.8-4.8); Lymphocytes % 50.6 %; Mean Corpuscular HGB Conc 31.4 g/dL (30.0-36.0); Mean Corpuscular Hemoglobin 30.3 pg (28.0-34.0); Mean Corpuscular Volume 96.3 fl (81-99); Mean Platelet Volume 9.6 fL (7.4-10.4); Monocytes # 0.2 10^3/uL (0.2-0.9); Monocytes % 6.4 %; Neutrophils % 40.2 %; Nucleated Red Blood Cells % 0 %; Platelet Count 66 10^3/cmm (130-400); Red Blood Count 2.71 10^6/uL (4.1-5.3); Red Cell Distribution Width 17.3 % (12.1-15.1); White Blood Count 2.5 10^3/uL (4.0-10.0)
[2021-09-26] MEDS: duloxetine 30 mg Capsule PO (09:28)
[2021-09-26] MEDS: linezolid 600 mg Tablet PO ×2 (09:28→20:42)
[2021-09-26] MEDS: pantoprazole DR 40 mg Tablet PO (09:28)
[2021-09-26 14:03] LABS: ANCA Screen NEGATIVE (NEGATIVE)
[2021-09-26] MEDS: prochlorperazine 10 mg Tablet PO (16:08)
[2021-09-26] MEDS: sodium chloride 0.9% 1,000 ML 75 ML IV (18:21)
[2021-09-26] MEDS: sodium chloride 0.9% 500 ML 999 ML IV (18:21)
--- NOTE | 2021-09-26 18:21 | PC.NURSE ---
Addendum entered by Bisi Burrell RN 09/26/21 18:31: Patients port was de-accessed at the time of discharge. at 1825 I re-accessed her port in a sterile fashion. port had good blood return at time of insertion. Original Note: at time of discharge patient developed some nausea as she was being wheeled out. I extensively discussed leaving with patient in front of the elevators. Patient stated that she was nervous that she was not going to make it into her home, and while getting dressed she felt extremely fatigued. I discussed that I could call the doctor, but her and her ultimately decided that they wanted to leave and stated that she has two different nausea medications at home that they could treat her nausea with. They also stated that there would be at least two people at the house to help get her inside. After a few minutes I was notified that the patient was back in her room, and was told by the BLOCK BREAKER OPERATOR that she vomited again and stated that she didn't feel comfortable going home. I notified Dr. Ledesma. she canceled discharge orders and placed IVF orders.
[2021-09-27] VITALS: BP 138/75; PULSE 96; RESP 17; TEMP 36.8; O2SAT 95
[2021-09-27 04:00] VITALS: BP 122/72; PULSE 95; RESP 17; TEMP 36.8; O2SAT 96
[2021-09-27 08:00] VITALS: BP 122/72; PULSE 95; RESP 16; TEMP 36.8; O2SAT 96
[2021-09-27] MEDS: pantoprazole DR 40 mg Tablet PO (08:33)
[2021-09-27] MEDS: duloxetine 30 mg Capsule PO (08:33)
[2021-09-27] MEDS: linezolid 600 mg Tablet PO (08:33)
[2021-09-27] MEDS: nystatin cream 30 gm 1 APPLIC TOPICAL (08:33)
--- NOTE | 2021-09-27 09:41 | PC.SOCIAL ---
IMM Update Imm updated with patient, copy of page 2 provided. Patient verbalized understanding. Copy initialed, dated and timed, placed in chart.
[2021-09-27 10:00] VITALS: BP 123/79; BP 135/85
--- NOTE | 2021-09-27 11:01 | PC.NURSE ---
unable to stand long enough for standing bp
[2021-09-27 12:00] VITALS: BP 132/86; PULSE 89; RESP 16; TEMP 36.9; O2SAT 95
--- NOTE | 2021-09-27 12:31 | P.DS_ITS ---
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 (3) Bilateral hydronephrosis: Status: Chronic (4) Bilateral ureteral obstruction: Status: Acute (5) Drug-induced leukopenia: Status: Acute (6) Electrolyte abnormality: Status: Acute (7) Anemia following use of chemotherapeutic drug: Status: Acute (8) Thrombocytopenia: Status: Acute (9) Complicated urinary tract infection: Status: Suspected (10) Vancomycin resistant Enterococcus infection: Status: Acute (11) Diarrhea: Status: Acute Qualifiers: Diarrhea type: unspecified type Qualified Code(s): R19.7 - Diarrhea, unspecified (12) Ovarian cancer: Status: Chronic Permanent problem details: Followed in [place] Reason for Visit Reason for Visit: WEAKNESS Brief History: As per HPI Francei Levine is a 76 year old female with a past medical history of right lower extremity DVT intolerant to anticoagulation due to anemia, status post IVC filter placement, history of bilateral hydronephrosis secondary to ovarian mass, endometrial adenocarcinoma? currently on chemotherapy, in [place].? She presents to the ER with c/o being fatigued, weak, nauseous, has a poor appetite since her last chemotherapy one week ago. .? She has had 3 trips to the Er for similar complaints over the past 2 days. She had a fall yesterday, denies any head trauma no loss of consciousness, but does report feeling lightheaded.?Denies fever, chills, URI symptoms. Hospital Course Hospital Course Patient is status post recent chemotherapy. Pancytopenia noted on labs. No current fever chills or other localizing signs of infection. Patient remained pancytopenic throughout hospital stay. In total she got 3 units of packed RBCs and 2 units of platelets. Once counts were stable she was discharged home with prescription of CBC to follow-up as an outpatient. She also requested to switch her oncological doctor to [place]. Referral was sent to Dr. Baugh who accepted her as a patient. She will follow-up with him as an outpatient and [place] with Dr. Brandon harp for further management and work-up of her cancer. Day of discharge she is feeling better and looking forward to going home. 2.During hospital stay she did have an acute on chronic UTI which was this time vancomycin resistant bacteria. She will be sent home on linezolid. 3. There was also chemo induced diarrhea present on admission. Enteric panel negative, parasite panel negative C. difficile negative. Diarrhea improved on its own after few days. Physical Exam Narrative: GEN: Awake, alert and oriented, dehydrated+ CVS: S1S2 N RS: CTA B/L all areas Abd: Soft, nt/nd , bs+ GLASS PULVERIZER EQUIPMENT OPERATOR: no focal neuro deficits Discharge Data Studies Completed and Pending Completed Studies During Hospitalization Category Date Time Status XR abdomen 1V* [id number] Routine Exams 09/18/21 00:04 Completed XR chest 1V portable [id number] Stat Exams 09/17/21 19:20 Completed Pending at discharge Category Date Time Status ABO/Rh Type Routine Lab 09/20/21 05:25 Results Anti-Neutrophil Cytoplasmic AB Stat Lab 09/24/21 04:40 Stop Req Complete Crossmatch Routine Lab 09/20/21 05:25 Results Leukocyte Reduced RBC Routine Lab 09/22/21 07:57 Results Platelets Leukoreduced Irradia Routine Lab 09/20/21 05:25 Results Type and Screen AM LABS Lab 09/20/21 05:25 Results Radiology Impressions Chest X-Ray 09/17/21 19:20 IMPRESSION: No acute findings. Abdomen X-Ray 09/18/21 00:04 IMPRESSION: 1. Moderate to severely gas distended loops of small bowel in the abdomen and pelvis. These findings may represent postsurgical adynamic ileus or distal small bowel obstruction. Recommend correlation with bowel sound findings. 2. Bilateral double-J ureteral stents, as noted above. 3. IVC filter. COMMENTS: For patients with an IVC filter, recommend assessment for a management plan for the patient's IVC filter. If there is no established management plan, recommend referral to an interventional clinician on a nonemergent basis for evaluation. Laboratory Results WBC 3.1 10^3/uL (4.0-10.0) L 09/25/21 03:37 RBC 2.72 10^6/uL (4.1-5.3) L 09/25/21 03:37 Hgb 8.3 g/dL (11.5-15.3) L 09/25/21 03:37 Hct 25.8 % (37.0-47.0) L 09/25/21 03:37 MCV 94.9 fl (81-99) 09/25/21 03:37 MCH 30.5 pg (28.0-34.0) 09/25/21 03:37 MCHC 32.2 g/dL (30.0-36.0) 09/25/21 03:37 RDW 17.8 % (12.1-15.1) H 09/25/21 03:37 Plt Count 34 10^3/cmm (130-400) L 09/25/21 03:37 MPV 9.2 fL (7.4-10.4) 09/25/21 03:37 Neut % (Auto) 40.2 % 09/25/21 03:37 Lymph % (Auto) 51.0 % 09/25/21 03:37 [place] % (Auto) 6.9 % 09/25/21 03:37 Eos % (Auto) 1.3 % 09/25/21 03:37 Baso % (Auto) 0.3 % 09/25/21 03:37 Reticulocyte % (Auto) 0.1 % (0.5-2.0) L 09/19/21 04:23 Neut # (Auto) 1.23 10^3/uL (1.8-7.7) L 09/25/21 03:37 Lymph # (Auto) 1.6 10^3/uL (0.8-4.8) 09/25/21 03:37 [place] # (Auto) 0.2 10^3/uL (0.2-0.9) 09/25/21 03:37 Eos # (Auto) 0.0 10^3/uL (0.0-0.8) 09/25/21 03:37 Baso # (Auto) 0.0 10^3/uL (0.0-0.1) 09/25/21 03:37 Nucleated RBC % (auto) 0 % 09/25/21 03:37 Nucleated RBCs # 0.0 /100WBC 09/25/21 03:37 PT 15.50 SECONDS (12.1-14.9) H 09/19/21 04:23 INR 1.20 (0.8-1.2) 09/19/21 04:23 APTT 38.4 SECONDS (23.9-36.7) H 09/19/21 04:23 Sodium 136 mmol/L (136-145) 09/25/21 03:37 Potassium 3.3 mmol/L (3.5-5.1) L 09/25/21 03:37 Chloride 100 mmol/L (98-107) 09/25/21 03:37 Carbon Dioxide 22 mmol/L (22-29) 09/25/21 03:37 Anion Gap 17.3 (5-19) 09/25/21 03:37 BUN 7 mg/dL (8-23) L 09/25/21 03:37 Creatinine 0.6 mg/dL (0.5-0.9) 09/25/21 03:37 GFR Calculation Not Reportable 09/25/21 03:37 Glucose 92 mg/dL (65-115) 09/25/21 03:37 Calculated Osmolality 280 mOsm/kg (285-295) L 09/25/21 03:37 Calcium 8.0 mg/dL (8.5-10.5) L 09/25/21 03:37 Phosphorus 3.1 mg/dL (2.5-4.5) 09/22/21 04:12 Magnesium 1.8 mg/dL (1.7-2.3) 09/23/21 04:35 Total Bilirubin 0.4 mg/dL (0.15-1.2) 09/19/21 04:23 AST 8 U/L (0-32) 09/19/21 04:23 ALT 7 U/L (0-33) 09/19/21 04:23 Alkaline Phosphatase 67 IU/L (35-105) 09/19/21 04:23 Lactate Dehydrogenase 223 U/L (135-214) H 09/19/21 04:23 Troponin T Baseline 30 ng/L (0-10) H 09/17/21 20:00 Troponin T 120 Minute 25.15 ng/L (0-10) H 09/17/21 22:00 Delta Troponin T -4.85 ABS# (0-10) L 09/17/21 22:00 Troponin T Hi Sens 6Hr 25.93 ng/L (0-10) H 09/18/21 02:00 Troponin T Hi Sens 6Hr Delta -4.07 ng/L (0-12) L 09/18/21 02:00 Total Protein 5.3 g/dL (6.6-8.7) L 09/19/21 04:23 Albumin 2.7 g/dL (3.5-5.2) L 09/19/21 04:23 Globulin 2.6 g/dL (1.3-4.6) 09/19/21 04:23 Blood Type O Negative 09/23/21 11:30 Rho(D) Type Negative 09/23/21 11:30 Antibody Screen Negative 09/23/21 11:30 Crossmatch See Detail 09/20/21 05:25 Vitals Last Vital Signs Temp 98.3 F 09/25/21 04:00 Pulse 92 09/25/21 04:00 Resp 20 H 09/25/21 04:00 BP 100/65 09/25/21 04:00 Pulse Ox 93 09/25/21 04:00 Discharge Plan Discharge Patient Disposition: Home Health Service Condition: Stable Prescriptions: New linezolid 600 mg Tablet 600 mg PO Q12H 1 Days Qty: 2 0RF Continued loratadine [Claritin] 10 mg Tablet 10 mg PO DAILY PRN (Reason: Allergy Symptoms) 0RF hydrocodone-acetaminophen 5-325 mg Tablet 1 tab PO Q4H PRN (Reason: Pain) 0RF prochlorperazine maleate 10 mg Tablet 10 mg PO Q6H PRN (Reason: Nausea) 0RF dexamethasone 4 mg Tablet See Rx Instructions .ROUTE .COMPLEX 0RF Rx Instructions: take 5 tabs (20mg) am of chemotherapy ondansetron 4 mg tablet,disintegrating 4 mg PO Q6H PRN (Reason: nausea and vomiting) Qty: 14 0RF hydroxyzine HCl 25 mg Tablet 25 mg PO DAILY@12 0RF enoxaparin [Lovenox] 60 mg/0.6 mL Syringe 60 mg SUBCUT Q12H 0RF Rx Instructions: for 7 days (rx filled 09/13/21) pantoprazole [Protonix] 40 mg tablet,delayed release (DR/EC) 40 mg PO DAILY 28 Days 0RF tramadol 50 mg Tablet 50 mg PO QID PRN (Reason: Pain) 0RF duloxetine 30 mg Capsule,Delayed Release(Dr/Ec) 30 mg PO DAILY 0RF Discontinued levofloxacin 750 mg tablet 750 mg PO DAILY 10 Days 0RF Discharge Orders: Discharge Order (Routine); Ordered 09/26/21 Ordered By: Dayanara Ledesma Other Ambulatory Orders: Complete Blood Count w/Auto (Routine) Timeframe: 3 Days Location: Determined by Patient Ordered By: Dayanara Ledesma Complete Blood Count w/Auto (Routine) Timeframe: 1 Week Location: Determined by Patient Ordered By: Dayanara Ledesma Referrals: [facility] [Outside] Tanmay Gold MD [Hospitalist] - 4-7 days (will call pt with appt info ) Nils Gambino DO [Primary Care Provider] - 10/02/21 12:00 pm (with nurse practitioner michael hurley ) Discharge Diet: Regular Discharge Activity: Resume usual activity Patient Instructions: Linezolid (By mouth) (Zyvox), Leukocytosis (GEN), Opioid Safety Activity Restrictions/Additional Instructions: Please get your blood counts rechecked as advised on scripts. Monitor for lightheadedness, dizziness, low blood pressure, bleeding (from anywhere). Please follow up with your primary care doctor as soon as possible as well as with oncology. Discharge Attestations Time Spent in Discharge Care*: less than 30 min Quality Metrics Clinical Quality Measures [ No reported AMI, CVA or VTE this stay] Coding Level of Care Code Acute Chg DC note Diagnoses Port-A-Cath in place Z95.828 Right leg DVT I82.401 Bilateral hydronephrosis N13.30 Bilateral ureteral obstruction N13.5 Drug-induced leukopenia D70.2 Electrolyte abnormality E87.8 Anemia following use of chemotherapeutic drug D64.81 Thrombocytopenia D69.6 Complicated urinary tract infection N39.0 Vancomycin resistant Enterococcus infection A49.1; Z16.21 Diarrhea R19.7 Diarrhea type: unspecified type Ovarian cancer C56.9
--- NOTE | 2021-09-27 14:09 | P.PN_ITS ---
Subjective Subjective: Seen this AM. She states she cannot go home because she is weak. She refuses to go to rehab. Home PT has been setup. Orthostatics checked this AM and normal. Vitals/I&O/Wt Last Vital Signs Temp 98.4 F 09/27/21 12:00 Pulse 89 09/27/21 12:00 Resp 16 09/27/21 12:00 BP 132/86 09/27/21 12:00 Pulse Ox 95 09/27/21 12:00 09/26/21 09/27/21 09/27/21 22:59 06:59 14:59 Intake Total 500 / 620 400 / 1020 240 / 240 Output Total 450 / 450 320 / 770 Balance 50 / 170 80 / 250 240 / 240 Weight last 48 hrs Weight 102.33 kg Weight 99.79 kg Physical Exam Narrative: General: Alert oriented x3, patient seen sitting up on edge of bed appearing very comfortable. HEENT: Normocephalic, atraumatic, EOMI, breathing normally, obese female Cardio: Regular rate rhythm, normal S1-S2, no murmurs, Mediport in place, skin around it dry nonerythematous Respiratory: Good bilateral air entry, no wheezes no rhonchi appreciated GI: Abdomen soft, nontender, bulky abdomen, bowel sounds + Behavior: Appropriate and cooperative Extremities: Trace to 2+ edema bilateral lower extremities, no cyanosis Data : 09/26/21 08:36 09/26/21 05:40 A&P Assessment and plan (1) Port-A-Cath in place: Status: Chronic (2) Bilateral hydronephrosis: Status: Chronic (3) Right leg DVT: Status: Acute (4) Bilateral ureteral obstruction: Status: Acute (5) Acquired immunocompromised state: Status: Acute (6) Ovarian cancer: Status: Chronic (7) Chronic anticoagulation: Status: Acute (8) Drug-induced leukopenia: Status: Acute (9) On antineoplastic chemotherapy: Status: Acute (10) Physical deconditioning: Status: Acute (11) Complicated urinary tract infection: Status: Suspected (12) Vancomycin resistant Enterococcus infection: Status: Acute (13) Thrombocytopenia: Status: Acute (14) Anemia following use of chemotherapeutic drug: Status: Acute Plan #UTI, Enterococcus VRE - improving #Chemotherapy induced diarrhea - resolved #Anemia, chronic, status post 2 unit packed RBC - Improved and stable #Severe Deconditioning #Protein calorie malnutrition #History of right lower extremity DVT intolerant to anticoagulation due to an emia status post IVC filter placement #History of bilateral hydronephrosis secondary to ovarian mass #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 Continue patient on linezolid for UTI.? Urine cultures growing Enterococcus.? Sensitive to linezolid. ? She will continue to see Dr. Brandon harp in [place] for her endometrial carcinoma as follow-up as an outpatient ? Continue to supplement potassium ? Status post 2 units packed RBC.? Continue monitoring hemoglobin.? Hemoglobin 7.4 today. ? Thrombocytopenia on admission.?s/p 2 unit platelets,? counts are stable. -Continue to replete electrolytes ? Continue to monitor for temperature.? Afebrile so far. -We will use Lomotil versus Imodium if needed for diarrhea but this has improved so far. DNR/DNI DVT prophylaxis: SCDs Patient would like to follow-up with Dr. Gold here for her future chemotherapy. Patient is severely deconditioned. She is refusing to go to rehab which has been offered to her last few days. I had a discussion with her again today and she refused to go to rehab again. Home PT has been set up. Physical therapy should be at her house starting tomorrow 09/28/2021. Her is aware of this as well. We will have physical therapy see her today to reassess her functional status. We will try to set up a wheelchair for the patient as well. Attestations Medical Necessity Statement*: Disposition to be decided after PT re- assessment. Coding Level of Care Code Acute Developer Trading Systems for Chg Fwd Diagnoses Port-A-Cath in place Z95.828 Bilateral hydronephrosis N13.30 Right leg DVT I82.401 Bilateral ureteral obstruction N13.5 Acquired immunocompromised state D84.9 Ovarian cancer C56.9 Chronic anticoagulation Z79.01 Drug-induced leukopenia D70.2 On antineoplastic chemotherapy Z79.899 Physical deconditioning R53.81 Complicated urinary tract infection N39.0 Vancomycin resistant Enterococcus infection A49.1; Z16.21 Thrombocytopenia D69.6 Anemia following use of chemotherapeutic drug D64.81
--- NOTE | 2021-09-27 14:31 | PC.NURSE ---
AFTER WORKING WITH PHYSICAL THERAPY, PATIENT IS STILL REFUSING TO GO TO REHAB. DR. CARLISLE ORDERED A WHEELCHAIR AND PATIENT STATED SHE LIVES WITH 2 PEOPLE THAT CAN HELP HER WELL HOME HEALTH BEING ORDERED. WAITING FOR A WHEELCHAIR TO BE DELIVERED AT THIS TIME.
--- NOTE | 2021-09-27 15:42 | PC.NURSE ---
right port -a-cath flushed with ns then 500 units heparin,then de-accessed using aseptic technique.2x2 applied and secured with tape.pt tolerated procedure well.
[2021-09-27 16:09] VITALS: BP 132/86; PULSE 89; RESP 16; TEMP 36.9; O2SAT 95
--- NOTE | 2021-09-27 16:09 | PC.NURSE ---
discharge instructions given and explained.pt verb understanding of instructions.discharged via w/c to exit at this time.pcg todrive pt home.
== END 2021-09-27 16:10 | disposition home health service (06) | DRG 809 ==
LOC: ER 20:47 → MEDSURG 22:09
PROVIDERS: Hospitalist; Admitting Provider Student in an Organized Health Care Education/Training Program; Emergency Provider Emergency Medicine; PCP Family Medicine; Visit Provider Internal Medicine
DX: D61.810 Antineoplastic chemotherapy induced pancytopenia (principal); C56.9 Malignant neoplasm of unspecified ovary; K52.1 Toxic gastroenteritis and colitis; D84.821 Immunodeficiency due to drugs; C83.30 Diffuse large B-cell lymphoma, unspecified site; I82.401 Acute embolism and thrombosis of unspecified deep veins of right lower extremity; N13.6 Pyonephrosis; Z16.21 Resistance to vancomycin; E46 Unspecified protein-calorie malnutrition; D69.59 Other secondary thrombocytopenia; D64.81 Anemia due to antineoplastic chemotherapy; E86.0 Dehydration; D70.1 Agranulocytosis secondary to cancer chemotherapy; T45.1X5A Adverse effect of antineoplastic and immunosuppressive drugs, initial encounter; B95.2 Enterococcus as the cause of diseases classified elsewhere; R53.81 Other malaise; I95.1 Orthostatic hypotension; E87.6 Hypokalemia; R53.1 Weakness; R11.2 Nausea with vomiting, unspecified; E83.42 Hypomagnesemia; R19.5 Other fecal abnormalities; L89.892 Pressure ulcer of other site, stage 2; Z66 Do not resuscitate; Z96.82 Presence of neurostimulator; Z87.891 Personal history of nicotine dependence; Z95.828 Presence of other vascular implants and grafts; Z79.899 Other long term (current) drug therapy; Z96.0 Presence of urogenital implants; Z68.38 Body mass index [BMI] 38.0-38.9, adult
CPT/HCPCS: 36415; 36430; 36591; 70450; 71045; 74018; 80048; 80053; 81001; 82274; 83615; 83630; 83735; 84100; 84484; 85025; 85045; 85610; 85730; 86036; 86850; 86900; 86920; 87077; 87086; 87186; 87493; 87506; 93005; 94760; 96360; 96372; 97116; 97161; 97165; 97530; 97535; 99284; 99285; G0378; J1642; J1650; J2405; J3475; J7030; J7040; P9040; Q0164; Q5101

== ENCOUNTER 2021-10-04 12:04 | Outpatient (CLI) | payer MEDICARE, OTHER, SELFPAY ==
[2021-10-04 12:51] LABS: Basophils % 0.6 %; Eosinophils % 0.3 %; Hemoglobin 8.6 g/dL (11.5-15.3); Lymphocytes # 1.6 10^3/uL (0.8-4.8); Lymphocytes % 44.6 %; Mean Corpuscular HGB Conc 31.9 g/dL (30.0-36.0); Mean Corpuscular Hemoglobin 30.3 pg (28.0-34.0); Mean Corpuscular Volume 95.1 fl (81-99); Mean Platelet Volume 9.5 fL (7.4-10.4); Monocytes # 0.6 10^3/uL (0.2-0.9); Monocytes % 17.8 %; Neutrophils # 1.22 10^3/uL (1.8-7.7); Neutrophils % 34.4 %; Nucleated Red Blood Cells % 1.1 %; Platelet Count 193 10^3/cmm (130-400); Red Blood Count 2.84 10^6/uL (4.1-5.3); Red Cell Distribution Width 16.5 % (12.1-15.1); White Blood Count 3.5 10^3/uL (4.0-10.0)
== END 2021-10-04 12:05 | disposition home or self-care (01) ==
LOC: LAB 12:06
PROVIDERS: PCP Family Medicine; Visit Provider Internal Medicine
DX: D70.2 Other drug-induced agranulocytosis (principal)
CPT/HCPCS: 36415; 85025

== ENCOUNTER 2021-10-18 11:54 | Inpatient (IN) | payer MEDICARE, OTHER, SELFPAY ==
[2021-10-18] VITALS (15 sets, daily range): BP systolic 88–141; BP diastolic 48–86; PULSE 78–103; RESP 12–18; TEMP 36.4–36.6; O2SAT 92–99; BMI 42.5; BMI 26.1
--- NOTE | 2021-10-18 11:59 | W.ED.GENADLT ---
HPI - General Adult General: Chief complaint: Weakness Stated complaint: WEAKNESS S/P CHEMO 10-17-21 Time Seen by Provider: 10/18/21 11:55 Source: patient and EMS Mode of arrival: EMS Limitations: no limitations History of Present Illness: 76-year-old female has a history of ovarian cancer that is active she is currently on chemotherapy she states her last treatment was the end of September. She states that throughout this process she is had generalized weakness she states that this morning she got up felt dehydrated tried to drink water and vomited. States she just feels weak all over and feels like she is dehydrated she denies any fever denies any chest pain denies any abdominal pain. Associated symptoms: Reports nausea and vomiting; Deny chest pain, dyspnea or rash Review of Systems Const: Denies: fever(s), chills, body aches or change in appetite Eyes: Denies: blurry vision or eye discomfort ENMT: Denies: throat pain or dental pain Card: Denies: chest pain Resp: Denies: dyspnea GI: Reports: nausea and vomiting : Denies: dysuria Musc: Denies: neck pain or back pain Skin/Breast: Denies: rash Neuro: Reports: weakness in extremities Psych: Denies: depression Wally/Lymph: Denies: easy bruising All/Imm: Denies: urticaria PFSH ED PFSH: Medical History Bilateral hydronephrosis Diffuse large B cell lymphoma Diagnosed 2018 Ovarian cancer Followed in [place] Port-A-Cath in place Presence of IVC filter Right leg DVT (06/2021) GSV extending to CFV Status post insertion of nerve stimulator Surgical History H/O cataract extraction bilateral eyes H/O tubal ligation History of colon resection History of left knee replacement History of removal of Port-a-Cath History of total right knee replacement History of ureter stent Bilateral, due to obstruction related to malignancy S/P cholecystectomy Status post hysteroscopy 06/11/2021- hysteroscopy with D&C via myosure performed by Dr. Victoria at [facility] Family History Mother , at age Hypertension Cancer pancreatic Father , at age 72 Colon cancer 72 Denies family history of Ovarian cancer Diabetes Clotting disorder Heart disease Hyperlipidemia Breast cancer Anesthesia complication Bleeding disorder Uterine cancer Thyroid condition Stroke Social History Smoking and tobacco status: former smoker Second hand smoke exposure: No Alcohol intake: never Adopted: No Caregiver/support person: Yes Lives independently: Yes Household members: significant other Housing: House Marital status: / service: No Current occupational status: retired Current occupational exposures/hazards: No Pets and animals: Yes History of recent travel: No Leisure activites: exercise Sexually active: No Current gender identity: Female Cheli/Protestant: Congregational Physical Exam Const: COMMON NORMALS: patient oriented x3 HENMT: COMMON NORMALS: normocephalic and atraumatic HEAD & SCALP: normocephalic and atraumatic Eye: COMMON NORMALS: Equal, round and reactive pupils present and EOMs intact bilaterally PUPIL: Yes Equal, round and reactive pupils present Neck/C-Spine: COMMON NORMALS: full ROM and supple Chest: COMMONS NORMALS: normal inspection of the chest and normal palpation of entire chest wall Resp: COMMON NORMALS: normal respiratory effort, No retractions, No use of accessory muscles and clear to auscultation bilaterally AUSCULTATION: clear to auscultation bilaterally Cardio: COMMON NORMALS: regular rate, regular rhythm and No murmurs present (Cardio) RATE: regular rate RHYTHM: regular rhythm GI: COMMON NORMALS: Normal to inspection, nondistended, normoactive bowel sounds present, Soft to palpation, non-tender and no masses PALPATION: Yes Soft to palpation Extremity: COMMON NORMALS: normal to inspection and full ROM Neuro: COMMON NORMALS: patient oriented x3, moves all extremities and no focal motor deficits Psych: COMMON NORMALS: mental status grossly normal, Normal thought process present and cooperative THOUGHT PROCESS: Normal thought process present Skin: COMMON NORMALS: no rashes or lesions noted and no wounds GENERAL SKIN EXAM: no rashes or lesions noted Course Vital Signs: Vital signs: Vital Signs Pulse Rate 78 10/18/21 14:00 Respiratory Rate 16 10/18/21 14:00 Blood Pressure 114/66 10/18/21 14:00 Pulse Oximetry 96 10/18/21 14:00 Oxygen Delivery Me thod 10/18/21 14:00 MDM - General Adult Medical Decision Making Patient presents with generalized weakness along with hypotension likely from dehydration. Her initial lactate was elevated and she was hypotensive her blood pressure is much improved after IV fluids currently is 111/65 will admit for observation no signs of infection at this time we will repeat her lactate as well Lab Data : 10/18/21 12:15 10/18/21 12:15 Radiology Impressions Chest X-Ray 10/18/21 12:26 IMPRESSION: No acute cardiopulmonary abnormality. Laboratory Results WBC 9.8 10^3/uL (4.0-10.0) 10/18/21 12:15 RBC 3.19 10^6/uL (4.1-5.3) L 10/18/21 12:15 Hgb 9.4 g/dL (11.5-15.3) L 10/18/21 12:15 Hct 32.1 % (37.0-47.0) L 10/18/21 12:15 MCV 100.6 fl (81-99) H 10/18/21 12:15 MCH 29.5 pg (28.0-34.0) 10/18/21 12:15 MCHC 29.3 g/dL (30.0-36.0) L 10/18/21 12:15 RDW 18.1 % (12.1-15.1) H 10/18/21 12:15 Plt Count 338 10^3/cmm (130-400) 10/18/21 12:15 MPV 9.2 fL (7.4-10.4) 10/18/21 12:15 Neut % (Auto) 72.0 % 10/18/21 12:15 Lymph % (Auto) 15.6 % 10/18/21 12:15 [place] % (Auto) 9.2 % 10/18/21 12:15 Eos % (Auto) 0.2 % 10/18/21 12:15 Baso % (Auto) 0.8 % 10/18/21 12:15 Neut # (Auto) 7.08 10^3/uL (1.8-7.7) 10/18/21 12:15 Lymph # (Auto) 1.5 10^3/uL (0.8-4.8) 10/18/21 12:15 [place] # (Auto) 0.9 10^3/uL (0.2-0.9) 10/18/21 12:15 Eos # (Auto) 0.0 10^3/uL (0.0-0.8) 10/18/21 12:15 Baso # (Auto) 0.1 10^3/uL (0.0-0.1) 10/18/21 12:15 Nucleated RBC % (auto) 0.5 % 10/18/21 12:15 Nucleated RBCs # 0.1 /100WBC 10/18/21 12:15 Sodium 142 mmol/L (136-145) 10/18/21 12:15 Potassium 2.9 mmol/L (3.5-5.1) L 10/18/21 12:15 Chloride 97 mmol/L (98-107) L 10/18/21 12:15 Carbon Dioxide 23 mmol/L (22-29) 10/18/21 12:15 Anion Gap 24.9 (5-19) H 10/18/21 12:15 BUN 12 mg/dL (8-23) 10/18/21 12:15 Creatinine 1.2 mg/dL (0.5-0.9) H 10/18/21 12:15 GFR Calculation Not Reportable 10/18/21 12:15 Glucose 131 mg/dL (65-115) H 10/18/21 12:15 Calculated Osmolality 296 mOsm/kg (285-295) H 10/18/21 12:15 Lactic Acid 4.4 mmol/L (0.5-2.2) H* 10/18/21 12:15 Calcium 8.2 mg/dL (8.5-10.5) L 10/18/21 12:15 Total Bilirubin 0.7 mg/dL (0.15-1.2) 10/18/21 12:15 AST 15 U/L (0-32) 10/18/21 12:15 ALT 6 U/L (0-33) 10/18/21 12:15 Alkaline Phosphatase 86 IU/L (35-105) 10/18/21 12:15 Total Protein 6.2 g/dL (6.6-8.7) L 10/18/21 12:15 Albumin 3.0 g/dL (3.5-5.2) L 10/18/21 12:15 Globulin 3.2 g/dL (1.3-4.6) 10/18/21 12:15 Lipase 11 U/L (13-60) L 10/18/21 12:15 EKG Data EKG 1: I personally reviewed and interpreted this EKG as follows: EKG interpretation date: 10/18/21 EKG interpretation time: 13:08 Interpretation: nsr hr [address] or t wave abnormalities qrs 92 qtc 417 Computer generated interpretation: Chest X-Ray 10/18/21 12:26 IMPRESSION: No acute cardiopulmonary abnormality. Discharge Plan Discharge Patient Disposition: Placed in Observation Clinical Impression: Dehydration, Weakness, Hypotension Coding Level of Care Code ED Watch Adjuster for Chg Fwd Exam Comprehensive
[2021-10-18] MEDS: sodium chloride 0.9% 1,000 ML 999 ML IV ×2 (12:25→13:34)
--- NOTE | 2021-10-18 12:26 | XRR_ITS ---
PROCEDURE INFORMATION: Exam: XR Chest Exam date and time: 10/18/2021 12:30 PM Age: 76 years old Clinical indication: Other: Weakness; Prior surgery; Surgery date: 1-6 months; Surgery type: Port placement for chemo; Patient HX: HX of uterine CA, currently on month 3 of chemo TECHNIQUE: Imaging protocol: Radiologic exam of the chest. Views: 1 view. COMPARISON: CR (CHEST, ) 09/17/2021 7:46 PM FINDINGS: Tubes, catheters and devices: Neurostimulator wires project on the spine. A MediPort catheter is present with the tip projecting in the SVC. Lungs: Unremarkable. No consolidation. Pleural spaces: Unremarkable. No pleural effusion. No pneumothorax. Heart/Mediastinum: The cardiac silhouette is not enlarged. Bones/joints: Unremarkable. XR/XR chest 1V portable [id number] IMPRESSION: No acute cardiopulmonary abnormality.
[2021-10-18] MEDS: ondansetron 2 mg/ML SDV 2 mL 4 MG IVP (12:29)
[2021-10-18 12:31] LABS: Basophils # 0.1 10^3/uL (0.0-0.1); Basophils % 0.8 %; Eosinophils % 0.2 %; Hematocrit 32.1 % (37.0-47.0); Hemoglobin 9.4 g/dL (11.5-15.3); Lymphocytes # 1.5 10^3/uL (0.8-4.8); Lymphocytes % 15.6 %; Mean Corpuscular HGB Conc 29.3 g/dL (30.0-36.0); Mean Corpuscular Hemoglobin 29.5 pg (28.0-34.0); Mean Corpuscular Volume 100.6 fl (81-99); Mean Platelet Volume 9.2 fL (7.4-10.4); Monocytes # 0.9 10^3/uL (0.2-0.9); Monocytes % 9.2 %; Neutrophils # 7.08 10^3/uL (1.8-7.7); Nucleated Red Blood Cells # 0.1 /100WBC; Nucleated Red Blood Cells % 0.5 %; Platelet Count 338 10^3/cmm (130-400); Red Blood Count 3.19 10^6/uL (4.1-5.3); Red Cell Distribution Width 18.1 % (12.1-15.1); White Blood Count 9.8 10^3/uL (4.0-10.0)
[2021-10-18 12:58] LABS: Alanine Aminotransferase 6 U/L (0-33); Alkaline Phosphatase 86 IU/L (35-105); Aspartate Amino Transferase 15 U/L (0-32); Blood Urea Nitrogen 12 mg/dL (8-23); Calcium 8.2 mg/dL (8.5-10.5); Carbon Dioxide 23 mmol/L (22-29); Chloride 97 mmol/L (98-107); Globulin 3.2 g/dL (1.3-4.6); Glucose 131 mg/dL (65-115); Lipase 11 U/L (13-60); Osmolality Calculated 296 mOsm/kg (285-295); Sodium 142 mmol/L (136-145); Total Bilirubin 0.7 mg/dL (0.15-1.2); Total Protein 6.2 g/dL (6.6-8.7)
[2021-10-18 13:00] LABS: Lactic Sepsis W/Reflex 4.4 mmol/L (0.5-2.2)
[2021-10-18 13:01] LABS: Anion Gap 24.9 (5-19); Potassium 2.9 mmol/L (3.5-5.1)
--- NOTE | 2021-10-18 13:08 | ECG_ITS ---
[facility] Test Date: 2021-10-18 Pat Name: Francie Levine Department: Room: Gender: Female Glost Kiln Placer: : 1945 Requested By: Anjali Fermin Order Number: [id number] Diana MD: Jovany Coates M.D. Measurements Intervals [place] Rate: 94 P: 50 AK: 153 QRS: -31 QRSD: 92 T: 109 QT: 365 QTc: 458 Interpretive Statements SINUS RHYTHM LEFT AXIS DEVIATION [QRS AXIS < -30] POSSIBLE ANTERIOR MYOCARDIAL INFARCTION , PROBABLY OLD [30 ms Q WAVE IN V3/V4, OR R < 0.2 mV IN V4] MODERATE T-WAVE ABNORMALITY, CONSIDER LATERAL ISCHEMIA [-0.1+ mV T WAVE IN I/aVL/V5/V6] Compared to ECG 09/18/2021 01:36:32 Myocardial infarct finding now present T-wave abnormality still present Possible ischemia still present Electronically Signed On 10-18-2021 20:31:37 CDT by Jovany Coates M.D. [id number]
[2021-10-18 13:10] LABS: Reflex Lactate Order REFLEX LACTIC ORDERD
--- NOTE | 2021-10-18 13:18 | PC.PHAR ---
pt states she has not been taking Lovenox due to cost and pharmacy is trying to find alternative for prior auth.
[2021-10-18] MEDS: vancomycin 1,000 MG in sodium chloride 0.9% 250 ML 250 MG IV (13:43)
[2021-10-18] MEDS: piperacillin-tazobactam 3.375 GM in sodium chloride 0.9% (plus) 50 ML IV (14:52)
[2021-10-18 15:17] LABS: Lactic Acid level (Lactate) 2.3 mmol/L (0.5-2.2)
--- NOTE | 2021-10-18 16:38 | CTR_ITS ---
PROCEDURE INFORMATION: Exam: CT Chest Without Contrast; Diagnostic Exam date and time: 10/18/2021 6:30 PM Age: 76 years old Clinical indication: Fever; Shortness of breath; Prior surgery; Surgery type: Port, gb; Additional info: Roberto, obstructive nephropathy, source of infection TECHNIQUE: Imaging protocol: Diagnostic computed tomography of the chest without contrast. Radiation optimization: All CT scans at this facility use at least one of these dose optimization techniques: automated exposure control; mA and/or kV adjustment per patient size (includes targeted exams where dose is matched to clinical indication); or iterative reconstruction. COMPARISON: CT chest con [id number] 06/12/2021 11:26 AM RADIATION DOSE METRICS: Total DLP (mGy-cm): 1063.25 FINDINGS: Tubes, catheters and devices: There is a right chest port with the line tip appropriately positioned in the lower SVC near the cavoatrial junction. There are neurostimulator leads positioned at T8-9 and T6-71. Lungs: Lungs are clear. Pleural spaces: There is no pleural effusion or pneumothorax. Heart: Heart size is normal. There is no pericardial effusion. There is severe coronary artery calcification. Lymph nodes: There is no mediastinal or hilar lymphadenopathy. Vasculature: There is mild aortic atherosclerotic disease. Descending aorta is tortuous. No aneurysm. The ascending aorta is ectatic measuring up 4.4 cm diameter. Bones/joints: There are healed fractures of the left posteromedial 10th through 12th ribs. Mild degenerative disease at both shoulders. moderate T11 compression fracture. Soft tissues: The extrathoracic soft tissues are unremarkable. PROCEDURE INFORMATION: Exam: CT Abdomen And Pelvis Without Contrast Exam date and time: 10/18/2021 6:30 PM Age: 76 years old Clinical indication: Fever; Shortness of breath; Prior surgery; Surgery type: Port, gb; Additional info: Roberto, obstructive nephropathy, source of infection TECHNIQUE: Imaging protocol: Computed tomography of the abdomen and pelvis without contrast. Radiation optimization: All CT scans at this facility use at least one of these dose optimization techniques: automated exposure control; mA and/or kV adjustment per patient size (includes targeted exams where dose is matched to clinical indication); or iterative reconstruction. COMPARISON: CT abdomen pelvis con [id number] 09/01/2021 12:46 AM RADIATION DOSE METRICS: Total DLP (mGy-cm): 1063.25 FINDINGS: Liver: The liver is normal. Gallbladder and bile ducts: The gallbladder is absent. There is no intrahepatic or extrahepatic bile duct dilation. Pancreas: There is mild atrophy of the pancreas. Spleen: The spleen is unremarkable. Adrenal glands: The adrenal glands are unremarkable. Kidneys and ureters: Bilateral ureteral stents are appropriately positioned with proximal coils in the renal pelves and distal coils in the urinary bladder. There is no hydronephrosis or ureteral dilation. There is mild atrophy of both kidneys. Stomach and bowel: The stomach is decompressed, preventing meaningful evaluation of wall thickness. Intermittently fluid distended distal small bowel. No chuck small bowel dilation or transition point to suggest obstruction. No mesenteric edema to suggest enteritis. The colon is unremarkable. Appendix: The appendix is normal. Intraperitoneal space: There is no intraperitoneal free air. Vasculature: There is a filter in the inferior vena cava positioned below the level of the renal veins. There is moderate aortic atherosclerotic disease. Lymph nodes: There is no lymphadenopathy in the retroperitoneum, mesentery, pelvis or inguinal regions. Urinary bladder: Unremarkable as visualized. Reproductive: The uterus is small and heavily calcified. There is a low-density mass or intermediate density cyst in the left adnexa measuring 5.5 x 4.3 cm, stable since 08/09/2021. Bones/joints: There is severe multilevel degenerative disease in the lumbar spine. Mild L1 compression fracture is stable since 08/09/2021. The pelvis and hips are unremarkable. Soft tissues: The abdominal wall is intact. CT/[place] [id number] IMPRESSION: 1. No acute intrathoracic findings. 2. T11 compression fracture, new since 08/09/2021 and progressive since 09/01/2021. 3. Incidental findings above. IMPRESSION: 1. No acute findings. 2. Left adnexal mass or cyst measuring 5.5 cm, stable since 08/09/2021, corresponding to a suspected malignant lesion identified on ultrasound 05/14/2021 (prior ultrasound images are not available for comparison). 3. Incidental findings above. COMMENTS: For patients with an IVC filter, recommend assessment for a management plan for the patient's IVC filter. If there is no established management plan, recommend referral to an interventional clinician on a nonemergent basis for evaluation.
--- NOTE | 2021-10-18 16:38 | P.HP_ITS ---
Providers/Chief Complaint Admitting Physician: Gabby Wood MD Primary Care Provider: Nils Gambino DO Chief Complaint: WEAKNESS S/P CHEMO 10-17-21 History of Present Illness Francie Levine is a 76 year old female with past medical history of right lower limb DVT, not on anticoagulation from anemia, s/p IVC filter, history of bilateral hydronephrosis secondary to ovarian mass, endometrial adenocarcinoma on chemotherapy with last dose late in September, admissions in the past for dehyd ration and anemia most recently discharged on September 27 when she received 3 units of PRBC and 2 units of platelets, history of Enterococcus VRE UTI. She presents back to the ER today complaining of weakness, dizziness on standing up for last 4 to 5 days which has been getting the last 1 to 2 days. Complaining ongoing for bowel movements sometimes are black and tarry in color. Denies any fever, dysuria, nausea, vomiting, cough, headache. States last chemotherapy was prior to previous admission. Review of Systems General: Reports: 10 or more systems reviewed and unremarkable except in HPI and below Const: Denies: fever(s), chills, body aches, change in appetite, change in weight, malaise, night sweats, diaphoresis, change in sleep pattern, daytime sleepiness or snoring Eyes: Denies: change in vision, blurry vision, photophobia, eye discomfort or eye discharge ENMT: Denies: throat pain, enlarged tonsils, hoarseness, mouth pain, oral sores, dry mouth, tinnitus, nasal congestion or post nasal drip Card: Denies: chest pain, palpitations, irregular heart rhythm, edema, swelling of feet/ankles, lightheadedness, syncope, pre-syncope, dyspnea on exertion, orthopnea, leg pain with exertion or acrocyanosis Resp: Denies: dyspnea, productive cough, non-productive cough, wheezing, stridor, pain on inspiration, change in phlegm color, hemoptysis or chest conges tion GI: Denies: abdominal pain, nausea, vomiting, hematemesis, coffee ground emesis, dysphagia, heartburn, diarrhea, constipation, bloating, GI cramping, change in bowel habits, pain on defecation, hematochezia or melena : Denies: flank pain, dysuria, urinary frequency, urinary urgency, urinary hesitancy, nocturia or hematuria Musc: Denies: neck pain, back pain, extremity pain, joint pain, joint swelling , joint redness, joint stiffness or limited range of motion Neuro: Denies: headache(s), numbness in extremities, weakness in extremities, sensory changes, lack of coordination, difficulty walking, frequent falls, dizziness, vertigo, confusion, Slurred speech present, difficulty communicating thoughts or seizure-like activity Psych: Denies: anxiety, depression, mood swings, panic attacks, hopelessness or irritability Endo: Denies: polyuria, polydipsia, tired all the time, cold intolerance, excessive sweating, flushing or heat intolerance Wally/Lymph: Denies: easy bruising or easy bleeding All/Imm: Denies: tongue swelling, facial swelling or acute wheezing Medications/Allergies Home Medications Medication Instructions Recorded Confirmed Last Taken Type loratadine 10 mg tablet (Claritin) 10 mg PO DAILY PRN Allergy Symptoms 02/14/21 10/18/21 08/08/21 History hydrocodone 5 mg-acetaminophen 325 1 tab PO Q4H PRN Pain 07/15/21 10/18/21 09/17/21 08:30 History mg tablet ondansetron 4 mg disintegrating 4 mg PO Q6H PRN nausea and 07/15/21 10/18/21 08/06/21 Rx tablet vomiting #14 tabs prochlorperazine maleate 10 mg 10 mg PO Q6H PRN Nausea 07/15/21 10/18/21 06/0 03/29 History tablet duloxetine 30 mg capsule,delayed 30 mg PO DAILY 08/05/21 10/18/21 10/18/21 History release tramadol 50 mg tablet 50 mg PO QID PRN Pain 08/05/21 10/18/21 08/06/21 History hydroxyzine HCl 25 mg tablet 25 mg PO DAILY@12 PRN Itching 09/17/21 10/18/21 10/17/21 History Allergies Allergy/AdvReac Type Severity Reaction Status Date / Time naproxen Allergy ADR-Nausea Verified 09/30/21 09:00 PFSH Acute PFSH: Medical History (Updated 10/18/21 @ 16:44 by Antoni Mcdowell MD) Acquired immunocompromised state Bilateral hydronephrosis Diffuse large B cell lymphoma Diagnosed 2018 On antineoplastic chemotherapy Ovarian cancer Followed in [place] Physical deconditioning Port-A-Cath in place Presence of IVC filter Right leg DVT (06/2021) GSV extending to CFV Status post insertion of nerve stimulator Vancomycin resistant Enterococcus infection Surgical History H/O cataract extraction bilateral eyes H/O tubal ligation History of colon resection History of left knee replacement History of removal of Port-a-Cath History of total right knee replacement History of ureter stent Bilateral, due to obstruction related to malignancy S/P cholecystectomy Status post hysteroscopy 06/11/2021- hysteroscopy with D&C via myosure performed by Dr. Victoria at [facility] Family History Mother , at age Hypertension Cancer pancreatic Father , at age 72 Colon cancer 72 Denies family history of Ovarian cancer Diabetes Clotting disorder Heart disease Hyperlipidemia Breast cancer Anesthesia complication Bleeding disorder Uterine cancer Thyroid condition Stroke Social History Smoking and tobacco status: former smoker Second hand smoke exposure: No Alcohol intake: never Adopted: No Caregiver/support person: Yes Lives independently: Yes Household members: significant other Housing: House Marital status: / service: No Current occupational status: retired Current occupational exposures/hazards: No Pets and animals: Yes History of recent travel: No Leisure activites: exercise Sexually active: No Current gender identity: Female Cheli/Judaism: Confucianist Vitals/I&O/Wt Last Vital Signs Temp 98 F 10/18/21 15:23 Pulse 82 10/18/21 15:23 Resp 12 10/18/21 15:23 BP 109/69 10/18/21 15:23 Pulse Ox 96 10/18/21 15:23 O2 Del Method 10/18/21 15:23 10/18/21 10/18/21 10/18/21 06:59 14:59 22:59 Intake Total 1000 / 1000 300 / 1300 Balance 1000 / 1000 300 / 1300 Weight last 48 hrs Weight 68.946 kg Weight 108.862 kg Physical Exam Narrative: General: No acute distress, AO x3, NC oxygen supplementation HEENT: PERRLA, pupils bilaterally equal and reactive Chest:Bronchial breath sounds b/l ,decreased air entry, equal good air entry bilaterally, no more fine basal crackles CVS: S1-S2 regular, no murmurs, no tachycardia, no gallops, no rubs Abdomen: Soft, nontender, no organomegaly, bowel sounds present, morbidly obese Neuro: No focal deficits, no facial deformity, AO x3, power 5/5 in all limbs Data : 10/19/21 04:30 10/19/21 04:30 Micro: Microbiology 10/18/21 13:05 Blood Culture - Preliminary Blood SPECIMEN COLLECTED 10/18/21 13:00 Blood Culture - Preliminary Blood SPECIMEN COLLECTED A&P Assessment and plan (1) Acute kidney injury: Hydration with D5 half NS 20 mL potassium at 75 cc/h. Medically conceptional for nephrotoxic drugs. Check urinalysis, urine lites, urine creatinine, urine eosinophils. CT abdomen pelvis to look for worsening hydronephrosis. Status: Acute (2) Dehydration: Most likely from poor oral intake, ongoing diarrhea on and off. IV hydration. Status: Acute (3) Weakness: Status: Acute (4) Hypotension: Most likely secondary dehydration in a patient who is post chemotherapy. Will have to rule out infectious reason. Currently patient has no leukocytosis, afebrile. Patient to has a history of VRE Enterococcus UTI. Blood pressure better after 2 L of bolus IV fluids in the ER. Continue to monitor. Keep mean artery pressure 65. Hold off on antibiotics. We will continue to monitor for recurrent hypotension or febrile episode. Check blood culture, urinalysis, urine culture, CT chest abdomen pelvis, procalcitonin,. Status: Acute (5) Bilateral hydronephrosis: Status: Chronic (6) Bilateral ureteral obstruction: Status: Acute (7) Right leg DVT: Status: Acute (8) Ovarian cancer: Status: Chronic (9) On antineoplastic chemotherapy: Status: Acute (10) Physical deconditioning: Status: Acute (11) Hypokalemia: Status: Acute Plan Analgesia: Home dose of hydrocortisone, tramadol Glycemic control: Not needed Nutrition: Clear liquid diet CODE STATUS: DNR/DNI PUD prophylaxis: Famotidine DVT prophylaxis: Heparin 5000 every 12 hourly Admit to [facility]. This documentation was created by [employer] category planner software. Every effort was made to ensure accuracy of category planner. Any obvious errors or omissions should be clarified with the author of the document. Attestations Medical Necessity Statement*: Admission for more than 2 midnights for management of dehydration, poor oral intake, acute kidney injury, hypokalemia Coding Level of Care Code Acute Scallop Shucker for g Fwd Diagnoses Acute kidney injury N17.9 Dehydration E86.0 Weakness R53.1 Hypotension I95.9 Bilateral hydronephrosis N13.30 Bilateral ureteral obstruction N13.5 Right leg DVT I82.401 Ovarian cancer C56.9 On antineoplastic chemotherapy Z79.899 Physical deconditioning R53.81 Hypokalemia E87.6
[2021-10-18 17:21] LABS: Iron 78 ug/dL (37-145); Percent Saturation 52.7 % (20-50); Total Iron Binding Capacity 148 mcg/dl; Unsaturated Iron Binding 70 ug/dL (112-347)
[2021-10-18 17:31] LABS: Thyroid Stimulating Hormone 2.34 uIU/mL (0.27-4.20)
[2021-10-18 17:36] LABS: Procalcitonin 0.14 ng/mL (0-0.5); Vitamin B12 1267 pg/mL (232-1245)
[2021-10-18] MEDS: famotidine 20 mg/2 mL INJ IVP (17:44)
[2021-10-18] MEDS: heparin 5,000 unit/mL INJ 1 mL 5000 UNIT SUBCUT (17:44)
[2021-10-18] MEDS: ferrous gluconate 324 mg Tablet PO (17:44)
[2021-10-18 18:09] LABS: Bilirubin Urine Neg (Negative); Blood Urine 3+ (Negative); Glucose Urine UA Norm (Normal); Ketones Urine 1+ (Negative); Nitrate Urine Negative (Negative); Protein Urine Neg (Negative); Specific Gravity, Urine 1.015 (1.005-1.030); Urine Appearance Turbid (CLEAR); Urine Color Dark Yellow (Yellow); Urobilinogen Urine Norm (Negative); pH Urine 6 (5-7)
[2021-10-18 18:10] LABS: Add Urine Culture? Yes; Add Urine Microscopic? YES; Bacteria Urine 2+ /hpf; Leukocyte Esterase Urine 2+ (Negative); WBC Urine TOO NUMEROUS TO CNT /hpf (0-5)
[2021-10-18 18:20] LABS: Potassium, Radom Urine 21 mmol/L; Urine Creatinine 143 mg/dL (28-217); Urine Random Chloride 53 mmol/L; Urine Random Sodium 80 mmol/L
[2021-10-18] MEDS: potassium chloride ER 20 mEq Tablet 80 MEQ PO (18:42)
[2021-10-18 19:50] LABS: Eosinophil Urine No Eosinophils Seen; Urine Eosinophil Count 0 (0-0)
[2021-10-18 21:08] LABS: Folate Level 19.1 ng/mL (4.8-37.3)
[2021-10-18 22:34] LABS: Cortisol Random 14.34 ug/dL (2.47-19.5)
[2021-10-19] VITALS (15 sets, daily range): BP systolic 105–148; BP diastolic 64–90; PULSE 70–118; RESP 16–18; TEMP 36.5–36.9; O2SAT 92–98; BMI 28.7
[2021-10-19] MEDS: D5-NS 0.45% + KCL 20 mEq 20 MEQ/1,000 ML BAG 75 MEQ IV ×2 (00:53→21:06)
[2021-10-19] MEDS: famotidine 20 mg/2 mL INJ IVP (04:15)
[2021-10-19] MEDS: heparin 5,000 unit/mL INJ 1 mL 5000 UNIT SUBCUT ×2 (04:16→18:11)
[2021-10-19 04:47] LABS: Basophils # 0.1 10^3/uL (0.0-0.1); Basophils % 0.8 %; Eosinophils % 0.6 %; Hematocrit 24.4 % (37.0-47.0); Hemoglobin 7.2 g/dL (11.5-15.3); Lymphocytes % 28.1 %; Mean Corpuscular HGB Conc 29.5 g/dL (30.0-36.0); Mean Corpuscular Hemoglobin 29.9 pg (28.0-34.0); Mean Corpuscular Volume 101.2 fl (81-99); Mean Platelet Volume 9.1 fL (7.4-10.4); Neutrophils % 54.7 %; Nucleated Red Blood Cells % 0.3 %; Platelet Count 239 10^3/cmm (130-400); Red Blood Count 2.41 10^6/uL (4.1-5.3); White Blood Count 7.1 10^3/uL (4.0-10.0)
[2021-10-19 05:25] LABS: Alanine Aminotransferase < 5 U/L (0-33); Albumin Level 2.5 g/dL (3.5-5.2); Alkaline Phosphatase 67 IU/L (35-105); Anion Gap 16.4 (5-19); Aspartate Amino Transferase 10 U/L (0-32); Blood Urea Nitrogen 12 mg/dL (8-23); Calcium 7.2 mg/dL (8.5-10.5); Carbon Dioxide 25 mmol/L (22-29); Chloride 106 mmol/L (98-107); Chol HDL Ratio 2.18 mg/dL (0.0-4.40); Cholesterol 85 mg/dL (0-200); Globulin 2.5 g/dL (1.3-4.6); Glucose 84 mg/dL (65-115); HDL Cholesterol 39 mg/dL (60-100); LDL Cholesterol Calculated 28 mg/dL (50-129); LDL HDL Ratio 0.72 RATIO (0.00-3.22); Magnesium 1.4 mg/dL (1.7-2.3); Osmolality Calculated 297 mOsm/kg (285-295); Phosphorus 3.1 mg/dL (2.5-4.5); Potassium 3.4 mmol/L (3.5-5.1); Sodium 144 mmol/L (136-145); Total Bilirubin 0.4 mg/dL (0.15-1.2); Triglycerides 89 mg/dL (0-150)
[2021-10-19 05:29] LABS: Procalcitonin 0.21 ng/mL (0-0.5)
[2021-10-19] MEDS: HYDROcodone-acetaminophen 5-325 mg Tablet 1 TAB PO (05:38)
[2021-10-19 07:05] LABS: Estmated Average Glucose 82; Hemoglobin A1C 4.5 % (4.0-6.0)
[2021-10-19] MEDS: duloxetine 30 mg Capsule PO (09:53)
[2021-10-19] MEDS: ferrous gluconate 324 mg Tablet PO ×2 (09:53→18:11)
--- NOTE | 2021-10-19 12:02 | PM.PN ---
Subjective Subjective: No acute events overnight. Today morning on examination patient sitting up in chair. States feeling better. States hydration seems to have improved. Has remained afebrile and hemodynamically stable. Orthostatic blood pressures not in the chart. Vitals/I&O/Wt Last Vital Signs Temp 98.4 F 10/19/21 08:00 Pulse 84 10/19/21 08:00 Resp 16 10/19/21 08:00 BP 105/64 10/19/21 08:00 Pulse Ox 95 10/19/21 08:00 O2 Del Method 10/19/21 08:00 FiO2 21 10/18/21 20:59 10/18/21 10/19/21 10/19/21 22:59 06:59 14:59 Intake Total 1300 / 2300 120 / 2420 240 / 240 Balance 1300 / 2300 120 / 2420 240 / 240 Weight last 48 hrs Weight 68.946 kg Weight 108.862 kg Physical Exam Narrative: General: No acute distress, AO x3, NC oxygen supplementation HEENT: PERRLA, pupils bilaterally equal and reactive Chest:Bronchial breath sounds b/l ,decreased air entry, equal good air entry bilaterally, no more fine basal crackles CVS: S1-S2 regular, no murmurs, no tachycardia, no gallops, no rubs Abdomen: Soft, nontender, no organomegaly, bowel sounds present, morbidly obese Neuro: No focal deficits, no facial deformity, AO x3, power 5/5 in all limbs Data : 10/19/21 04:30 10/19/21 04:30 Micro: Microbiology 10/18/21 20:09 C.difficile Toxin B Gene (PCR) - Final Stool Routine Collection 10/18/21 20:09 Stool Lactoferrin - Final Stool Occult Blood (FIT) - Final 10/18/21 13:05 Blood Culture - Preliminary Blood SPECIMEN COLLECTED 10/18/21 13:00 Blood Culture - Preliminary Blood SPECIMEN COLLECTED A&P Assessment and plan (1) Anemia following use of chemotherapeutic drug: Hemoglobin down to 7.2. Stool for occult blood positive. Cannot rule out anemia secondary to a combination of post chemotherapy along with ongoing slow GI bleed. Protonix 40 mg twice daily, Carafate before meals and at bedtime. Will consult surgery for possible EGD and colonoscopy. Transfused 2 units of blood. Target hemoglobin over 8. Status: Acute (2) Acute kidney injury: Resolving. Hydration with D5 half NS 20 mL potassium at 75 cc/h. Medically reconciliation for nephrotoxic drugs. CT abdomen pelvis negative for any hydronephrosis. Urine studies appreciated. Status: Acute (3) Dehydration: Resolving. Most likely from poor oral intake, ongoing diarrhea on and off. IV hydration. Status: Acute (4) Hypotension: Check orthostatics. Most likely secondary dehydration in a patient who is post chemotherapy. Will have to rule out infectious reason. Currently patient has no leukocytosis, afebrile. Patient to has a history of VRE Enterococcus UTI. Continue to monitor. Keep mean artery pressure 65. Hold off on antibiotics. We will continue to monitor for recurrent hypotension or febrile episode. Follow-up blood culture, urinalysis negative for signs of UTI. Follow-up urine culture. CT chest and pelvis negative for any signs of infection. Pro-Anatoly negative. Status: Acute (5) Bilateral hydronephrosis: Resolved on repeat CT scan done on 10/18. Status: Chronic (6) Bilateral ureteral obstruction: Post bilateral ureteral stents. Good positioning on CT scan 10/18. Status: Acute (7) Right leg DVT: Not on anticoagulation given intolerance secondary to anemia. Possible GI bleed. Cannot see any EGD or colonoscopy in system. Status: Acute (8) Ovarian cancer: Follows up with oncology team at [facility]. Plan for repeat CT scan and possible gynecological surgery with Dr. Castellano Post surgery will follow up with Dr. Baugh as an outpatient. Status: Chronic (9) On antineoplastic chemotherapy: Status: Acute (10) Physical deconditioning: Status: Acute (11) Hypokalemia: Status: Acute (12) Weakness: Status: Acute Plan Analgesia: Home dose of hydrocortisone, tramadol Glycemic control: Not needed Nutrition: Clear liquid diet CODE STATUS: DNR/DNI PUD prophylaxis: Protonix 40 mg twice daily DVT prophylaxis: Heparin 5000 every 12 hourly Discharge planning: Discussed in detail with the patient. Discussed possible need of discharge to SNF given recurrent admissions and physical deconditioning. Patient states he does not want to go to SNF as that would mean to stop her chemotherapy. She is agreeable to go back home with home health. Home health has already been arranged for her on previous admission. Admit to [facility]. This documentation was created by [employer] duplicator punch operator software. Every effort was made to ensure accuracy of duplicator punch operator. Any obvious errors or omissions should be clarified with the author of the document. Attestations Medical Necessity Statement*: Requires further hospitalization for management of anemia, possible GI bleed, weakness secondary to anemia and dehydration, resolving KAT, severe physical deconditioning while safe discharge planning is sought. Time Spent in Patient Care: Greater than 35 minutes Coding Level of Care Code Acute Bending Shed Worker for g Fwd Diagnoses Anemia following use of chemotherapeutic drug D64.81 Acute kidney injury N17.9 Dehydration E86.0 Hypotension I95.9 Bilateral hydronephrosis N13.30 Bilateral ureteral obstruction N13.5 Right leg DVT I82.401 Ovarian cancer C56.9 On antineoplastic chemotherapy Z79.899 Physical deconditioning R53.81 Hypokalemia E87.6 Weakness R53.1
--- NOTE | 2021-10-19 13:40 | PC.NURSE ---
Patient was sitting in the chair of her room when I came in to do vitals. She walked from the chair to the bed all by herself. We completed the laying and sitting orthos. When standing for standing ortho, pt lost her balance, was able to regain her balance then eventually had to sit before I could detect a blood pressure. Patient state she was very dizzy and light headed. She then had to lay down rather go back to her chair when completed.
--- NOTE | 2021-10-19 14:46 | P.CONIM_ITS ---
Providers/Reason For Consult Consulting Physician/Specialty*: Corey Marquez MD Reason for Consult*: GI bleed and anemia Requesting Physician: Attending Physician: Antoni Mcdowell MD Primary Care Provider: Nils Gambino DO History of Present Illness History of Present Illness Ms. Francie Levine is a pleasant 76 year old female with history of ovarian cancer, right lower DVT, history of IVC filter placement.? History of bilateral ureteral stents due to compression of the ovarian mass with subsequent hydronephrosis on both sides.?seen recently back in August for adhesive SBO and reponded to conservative measures,apparently the patient presenting with worsening weaknessa and anemia associated with black tarry stool as the hospitalist service was informed with this information in the presence of current Hb 7.2,platkets 239.creatinine 1.0 Subsequent General surgery was consulted for further evluation to consider EGD and colonoscope. Further history taking,patient reports that she had yellow poop like a baby sh e denies any history of hematochezia or black tarry stools. As I was having the clinical encounter and discussing the case further with the patient and obtaining history in the presence of her nursing staff , she reports that she never had peptic ulcer disease or previous upper or lower endoscopies before, certainly she denies any hematemesis. And she reports to me that she is she started her last chemotherapy she has been weak and anemic CT of the chest abdomen and pelvis did show: 1. No acute intrathoracic findings. 2. T11 compression fracture, new since 08/09/2021 and progressive since 09/01/2021. 3. Incidental findings above. 1. No acute findings. 2. Left adnexal mass or cyst measuring 5.5 cm, stable since 08/09/2021, corresponding to a suspected malignant lesion identified on ultrasound 05/14/2021 (prior ultrasound images are not available for comparison). 3. Incidental findings above. Review of Systems General: Reports: 10 or more systems reviewed and unremarkable except in HPI and below Medications/Allergies Home Medications Medication Instructions Recorded Confirmed Last Taken Type loratadine 10 mg tablet (Claritin) 10 mg PO DAILY PRN Allergy Symptoms 02/14/21 10/18/21 08/08/21 History hydrocodone 5 mg-acetaminophen 325 1 tab PO Q4H PRN Pain 07/15/21 10/18/21 09/17/21 08:30 History mg tablet ondansetron 4 mg disintegrating 4 mg PO Q6H PRN nausea and 07/15/21 10/18/21 08/06/21 Rx tablet vomiting #14 tabs prochlorperazine maleate 10 mg 10 mg PO Q6H PRN Nausea 07/15/21 10/18/21 08/06/21 History tablet duloxetine 30 mg capsule,delayed 30 mg PO DAILY 08/05/21 10/18/21 10/18/21 History release tramadol 50 mg tablet 50 mg PO QID PRN Pain 08/05/21 10/18/21 08/06/21 History hydroxyzine HCl 25 mg tablet 25 mg PO DAILY@12 PRN Itching 09/17/21 10/18/21 10/17/21 History Allergies Allergy/AdvReac Type Severity Reaction Status Date / Time naproxen Allergy ADR-Nausea Verified 10/19/21 14:47 Current Medications Generic Name Dose Route Start Last Admin Trade Name Freq PRN Reason Stop Dose Admin Hydrocodone Bitart/Acetaminophen 1 tab 10/18/21 16:35 10/19/21 05:38 Hydrocodone-Acetaminophen 5-325 Mg Tablet PO 1 tab Q4H PRN Administration Pain Duloxetine HCl 30 mg 10/19/21 09:00 10/19/21 09:53 Duloxetine 30 Mg Capsule PO 30 mg DAILY ANGIE Administration Ferrous Gluconate 324 mg 10/18/21 18:00 10/19/21 09:53 Ferrous Gluconate 324 Mg Tablet PO 324 mg BIDWM ANGIE Administration Heparin Sodium (Porcine) 5,000 unit 10/18/21 16:45 10/19/21 04:16 Heparin 5,000 Unit/Ml Inj 1 Ml SUBCUT 5,000 unit Q12H ANGIE Administration Potassium Chloride/Dextrose/Sod Cl 20 meq in 1,000 mls @ 75 mls/hr 10/18/21 16:45 10/19/21 00:53 D5-Ns 0.45% + Kcl 20 Meq IV 75 mls/hr .[id number] ANGIE Administration PFSH Acute PFSH: Medical History Acquired immunocompromised state Bilateral hydronephrosis Diffuse large B cell lymphoma Diagnosed 2018 On antineoplastic chemotherapy Ovarian cancer Followed in [place] Physical deconditioning Port-A-Cath in place Presence of IVC filter Right leg DVT (06/2021) GSV extending to CFV Status post insertion of nerve stimulator Vancomycin resistant Enterococcus infection Surgical History H/O cataract extraction bilateral eyes H/O tubal ligation History of colon resection History of left knee replacement History of removal of Port-a-Cath History of total right knee replacement History of ureter stent Bilateral, due to obstruction related to malignancy S/P cholecystectomy Status post hysteroscopy 06/11/2021- hysteroscopy with D&C via myosure performed by Dr. Victoria at [facility] Family History Mother , at age Hypertension Cancer pancreatic Father , at age 72 Colon cancer 72 Denies family history of Ovarian cancer Diabetes Clotting disorder Heart disease Hyperlipidemia Breast cancer Anesthesia complication Bleeding disorder Uterine cancer Thyroid condition Stroke Social History Smoking and tobacco status: former smoker Second hand smoke exposure: No Alcohol intake: never Adopted: No Caregiver/support person: Yes Lives independently: Yes Household members: significant other Housing: House Marital status: / service: No Current occupational status: retired Current occupational exposures/hazards: No Pets and animals: Yes History of recent travel: No Leisure activites: exercise Sexually active: No Current gender identity: Female Cheli/Buddhism: Bahai Vitals/I&O/Wt Last Vital Signs Temp 97.9 F 10/19/21 12:00 Pulse 100 10/19/21 12:00 Resp 17 10/19/21 12:00 BP 106/68 10/19/21 12:00 Pulse Ox 92 10/19/21 12:00 O2 Del Method 10/19/21 12:00 FiO2 21 10/18/21 20:59 10/18/21 10/19/21 10/19/21 22:59 06:59 14:59 Intake Total 1300 / 2300 120 / 2420 480 / 480 Balance 1300 / 2300 120 / 2420 480 / 480 Weight last 48 hrs Weight 167 lb 2 oz Weight 152 lb Weight 240 lb Physical Exam Const: COMMON NORMALS: no acute distress and patient oriented x3 GENERAL APPEARANCE: cooperative ORIENTATION/CONSCIOUSNESS: Yes awake, Yes oriented to person, Yes oriented to place and Yes oriented to time HENMT: COMMON NORMALS: normocephalic HEAD & SCALP: normocephalic Eye: COMMON NORMALS: Equal, round and reactive pupils present and no scleral icterus PUPIL: Yes Equal, round and reactive pupils present Lymph: LYMPHATIC: no lymphadenopathy noted Chest: COMMONS NORMALS: normal inspection of the chest Resp: COMMON NORMALS: normal respiratory effort and clear to auscultation bilaterally AUSCULTATION: clear to auscultation bilaterally Cardio: COMMON NORMALS: S1 normal heart sound present and S2 normal heart sound present; negative for No murmurs present (Cardio) HEART SOUNDS: S1 normal heart sound present and S2 normal heart sound present GI: COMMON NORMALS: Soft to palpation; negative for No hepatosplenomegaly present INSPECTION: Yes normal to inspection PALPATION: Yes Soft to palpation, No Firmness to palpation present (GI), No Tenderness to palpation present (GI), No Guarding due to palpation present (GI), No Rigid due to palpation and No No hepatosplenomegaly present Neuro: COMMON NORMALS: patient oriented x3 SENSORIUM/ORIENTATION: Yes oriented to person, Yes oriented to place and Yes oriented to time Psych: COMMON NORMALS: mental status grossly normal Skin: COMMON NORMALS: no rashes or lesions noted GENERAL SKIN EXAM: no rashes or lesions noted Data : 10/19/21 04:30 10/19/21 04:30 Micro: Microbiology 10/18/21 20:09 Stool Lactoferrin - Final Stool Parasite Antigen Panel - Final Occult Blood (FIT) - Final 10/18/21 13:05 Blood Culture - Preliminary Blood NEGATIVE TO DATE 10/18/21 13:00 Blood Culture - Preliminary Blood NEGATIVE TO DATE 10/18/21 20:09 C.difficile Toxin B Gene (PCR) - Final Stool Routine Collection A&P Assessment and plan (1) Weakness: After further history taking physical examination and reviewing the chart and images of the CT scan with my personal interpretation, I did discuss with the patient about potential EGD and colonoscopy at some point because of her anemia, particularly that she never had scopes before and an underlying GI malignancy should be ruled out. At Present there is no acute indication for the scopes perhaps patient would consider them as an outpatient procedures. I I did recommend to the patient to follow-up with me as an outpatient to schedule her for EGD and colonoscopy. I did communicate back with Dr. Wellington to close the loop as it appears that currently the patient would like to restore her strength before she goes back and see her REGISTERED MEDICAL TRANSCRIPTIONIST oncologist in [place] for potential surgery. I will make myself available for any further concerns or question Thank you for consulting general surgery to participate taking care Status: Acute Consult Attestations Medical Necessity Statement: Per admitting service Coding Level of Care Code Acute Application Coordinator for Chg Fwd Diagnoses Weakness R53.1
[2021-10-19] MEDS: pantoprazole 40 mg SDV IVP (15:30)
[2021-10-19] MEDS: sucralfate 1 gm/10 mL Oral Liq UDC PO ×2 (18:11→20:34)
[2021-10-20] VITALS (9 sets, daily range): BP systolic 107–143; BP diastolic 8–85; PULSE 69–120; RESP 16–18; TEMP 36.5–36.6; O2SAT 94–97; BMI 29.2
[2021-10-20] MEDS: pantoprazole 40 mg SDV IVP ×2 (01:36→12:30)
[2021-10-20] MEDS: heparin 5,000 unit/mL INJ 1 mL 5000 UNIT SUBCUT ×2 (05:55→17:20)
[2021-10-20 06:05] LABS: Basophils # 0.1 10^3/uL (0.0-0.1); Basophils % 0.9 %; Eosinophils # 0.1 10^3/uL (0.0-0.8); Eosinophils % 1.2 %; Hematocrit 32.1 % (37.0-47.0); Hemoglobin 9.5 g/dL (11.5-15.3); Lymphocytes # 1.7 10^3/uL (0.8-4.8); Lymphocytes % 29.2 %; Mean Corpuscular HGB Conc 29.6 g/dL (30.0-36.0); Mean Corpuscular Hemoglobin 28.6 pg (28.0-34.0); Mean Corpuscular Volume 96.7 fl (81-99); Monocytes # 0.9 10^3/uL (0.2-0.9); Monocytes % 14.9 %; Neutrophils # 2.98 10^3/uL (1.8-7.7); Neutrophils % 51.4 %; Nucleated Red Blood Cells % 0.5 %; Platelet Count 204 10^3/cmm (130-400); Red Blood Count 3.32 10^6/uL (4.1-5.3); Red Cell Distribution Width 20.3 % (12.1-15.1); White Blood Count 5.8 10^3/uL (4.0-10.0)
[2021-10-20 06:26] LABS: Alanine Aminotransferase < 5 U/L (0-33); Albumin Level 2.2 g/dL (3.5-5.2); Alkaline Phosphatase 71 IU/L (35-105); Anion Gap 12.2 (5-19); Aspartate Amino Transferase 11 U/L (0-32); Blood Urea Nitrogen 9 mg/dL (8-23); Calcium 7.3 mg/dL (8.5-10.5); Carbon Dioxide 24 mmol/L (22-29); Chloride 107 mmol/L (98-107); Globulin 2.5 g/dL (1.3-4.6); Glucose 105 mg/dL (65-115); Osmolality Calculated 289 mOsm/kg (285-295); Potassium 3.2 mmol/L (3.5-5.1); Sodium 140 mmol/L (136-145); Total Bilirubin 0.4 mg/dL (0.15-1.2); Total Protein 4.7 g/dL (6.6-8.7)
[2021-10-20] MEDS: ferrous gluconate 324 mg Tablet PO ×2 (08:07→17:20)
[2021-10-20] MEDS: duloxetine 30 mg Capsule PO (08:07)
[2021-10-20] MEDS: D5-NS 0.45% + KCL 20 mEq 20 MEQ/1,000 ML BAG 75 MEQ IV ×2 (11:09→20:26)
--- NOTE | 2021-10-20 16:42 | PM.PN ---
Subjective Subjective: Patient states that after her third round of chemotherapy she has been completely wiped out. She states that she has been barely been able to walk. Its that today she was walked the most she has since early September. She has no complaints for me today. Vitals/I&O/Wt Last Vital Signs Temp 97.8 F 10/20/21 16:00 Pulse 76 10/20/21 16:00 Resp 17 10/20/21 16:00 BP 126/83 10/20/21 16:00 Pulse Ox 97 10/20/21 16:00 O2 Del Method 10/20/21 16:00 FiO2 21 10/18/21 20:59 10/20/21 10/20/21 10/20/21 06:59 14:59 22:59 Intake Total 170 / 2170 1000 / 1000 Output Total 300 / 500 300 / 300 Balance -130 / 1670 700 / 700 Weight last 48 hrs Weight 77.111 kg Weight 75.807 kg Physical Exam Narrative: Obese white female in no acute distress. Heart: Regular normal S1-S2 without murmurs clicks gallops or rubs Lungs: Clear to auscultation without wheezes rales or rhonchi Abdomen obese soft nontender nondistended positive bowel sounds no hepatosplenomegaly extremities: No clubbing cyanosis or edema Data : 10/20/21 05:18 10/20/21 05:18 Micro: Microbiology 10/18/21 20:09 Stool Lactoferrin - Final Stool Enteric Pathogens (PCR) - Final Parasite Antigen Panel - Final Occult Blood (FIT) - Final 10/18/21 16:51 Urine Culture - Preliminary Urine,Clean Catch Gram Negative Rods 10/18/21 13:05 Blood Culture - Preliminary Blood NEGATIVE TO DATE 10/18/21 13:00 Blood Culture - Preliminary Blood NEGATIVE TO DATE CT Abd/Pel: Radiologist's impression: Reviewed this CAT scan from 813. 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 Status post 2 units of blood now 9.5. Per RN stool is yellow-green. There is no black tarry stool or evidence of blood. Apparently surgery was consulted and recommended no EGD or colonoscopy. It appears most likely that the anemia is chemotherapy-induced. Status: Chronic (2) Acute kidney injury: Mildly elevated creatinine is now normal. Will stop hydration as patient is eating and drinking. Status: Resolved (3) Dehydration: Resolving. Most likely from poor oral intake, ongoing diarrhea on and off. IV hydration. Status: Acute (4) Hypotension: Check orthostatics. Reportedly unable to stand patient appears to be not orthostatic any longer. Most likely secondary dehydration in a patient who is post chemotherapy. Will have to rule out infectious reason. Currently patient has no leukocytosis, afebrile. Patient to has a history of VRE Enterococcus UTI. Urine growing gram-negative rods from 10/18/2021. We will follow. Status: Acute (5) Bilateral hydronephrosis: Resolved on repeat CT scan done on 10/18. Status: Resolved (6) Bilateral ureteral obstruction: Post bilateral ureteral stents. Good positioning on CT scan 10/18. Status: Resolved (7) Right leg DVT: Not on anticoagulation given intolerance secondary to anemia. Status: Acute (8) Ovarian cancer: Follows up with oncology team at [facility]. Plan for repeat CT scan and possible gynecological surgery with Dr. Castellano Post surgery will follow up with Dr. Baugh as an outpatient. Status: Chronic (9) On antineoplastic chemotherapy: Status: Acute (10) Physical deconditioning: Status: Acute (11) Hypokalemia: Will replace orally Status: Acute (12) Weakness: Most likely due to chemotherapy. Status: Acute Plan Analgesia: Home dose of hydrocortisone, tramadol Glycemic control: Not needed Nutrition:increase as tolerated. CODE STATUS: DNR/DNI PUD prophylaxis: Protonix 40 mg twice daily DVT prophylaxis: Heparin 5000 every 12 hourly Discharge planning: She is agreeable to go back home with home health. Home health has already been arranged for her on previous admission. This documentation was created by [employer] loaf counter software. Every effort was made to ensure accuracy of loaf counter. Any obvious errors or omissions should be clarified with the author of the document. Attestations Medical Necessity Statement*: Patient with weakness and longstanding history of recurrent UTIs. Most recent urine shows gram-negative rods will need to maintain to rule out VRE. Coding Level of Care Code Acute Patternmaker Apprentice Wood for g Fwd Diagnoses Anemia following use of chemotherapeutic drug D64.81 Acute kidney injury N17.9 Dehydration E86.0 Hypotension I95.9 Bilateral hydronephrosis N13.30 Bilateral ureteral obstruction N13.5 Right leg DVT I82.401 Ovarian cancer C56.9 On antineoplastic chemotherapy Z79.899 Physical deconditioning R53.81 Hypokalemia E87.6 Weakness R53.1
[2021-10-20] MEDS: potassium chloride ER 20 mEq Tablet 40 MEQ PO (17:20)
[2021-10-20] MEDS: magnesium sulfate premix 4 GM/100 ML PREMIX IV (17:57)
[2021-10-21] VITALS: BP 149/98; PULSE 76; RESP 15; TEMP 36.2; O2SAT 97
[2021-10-21 04:00] VITALS: BP 141/87; PULSE 78; RESP 12; TEMP 36.6; O2SAT 96
[2021-10-21] MEDS: heparin 5,000 unit/mL INJ 1 mL 5000 UNIT SUBCUT (05:15)
[2021-10-21 06:00] VITALS: PULSE 78
[2021-10-21 08:00] VITALS: BP 139/93; PULSE 73; RESP 16; TEMP 37; O2SAT 96
[2021-10-21] MEDS: duloxetine 30 mg Capsule PO (08:21)
[2021-10-21] MEDS: sucralfate 1 gm/10 mL Oral Liq UDC PO (08:21)
[2021-10-21] MEDS: potassium chloride ER 20 mEq Tablet 40 MEQ PO (08:21)
[2021-10-21] MEDS: ferrous gluconate 324 mg Tablet PO (08:21)
--- NOTE | 2021-10-21 09:33 | PC.SOCIAL ---
IMM Update pg 2 of IMM updated and reviewed w/ patient. Copy provided and copy dated and initialed and placed in chart.
[2021-10-21 11:10] VITALS: BP 129/74; PULSE 73; RESP 16; TEMP 36.5; O2SAT 97
[2021-10-21 14:08] LABS: Blood Urea Nitrogen 5 mg/dL (8-23); Calcium 7.6 mg/dL (8.5-10.5); Carbon Dioxide 24 mmol/L (22-29); Chloride 105 mmol/L (98-107); Creatinine Clr Calc Pharmacy 58.2485; Glucose 118 mg/dL (65-115); Osmolality Calculated 286 mOsm/kg (285-295); Sodium 139 mmol/L (136-145)
[2021-10-21 14:33] LABS: Anion Gap 14.2 (5-19); Potassium 4.2 mmol/L (3.5-5.1)
--- NOTE | 2021-10-21 15:15 | PM.DCS ---
Discharge Providers Date of Admission: 10/18/21 13:54 Date of Discharge: October 21, 2021 Attending Provider at Admission: Gabby Wood MD Attending Provider at Discharge: Joe Quintanilla DO Consults: Dr. 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 (2) Acute kidney injury: Status: Resolved (3) Dehydration: Status: Acute (4) Hypotension: Status: Acute (5) Bilateral hydronephrosis: Status: Resolved (6) Bilateral ureteral obstruction: Status: Resolved (7) Right leg DVT: Status: Acute Permanent problem details: GSV extending to CFV (8) Ovarian cancer: Status: Chronic Permanent problem details: Followed in [place] (9) On antineoplastic chemotherapy: Status: Acute (10) Physical deconditioning: Status: Acute (11) Hypokalemia: Status: Acute (12) Weakness: Status: Acute Reason for Visit Reason for Visit: WEAKNESS S/P CHEMO 10-17-21 Brief History: Please see H&P for details Hospital Course Hospital Course Patient was admitted for weakness and anemia and positive orthostatics. She was given IV fluid fluids and 2 units of packed red blood cells. She also had hypokalemia and hypomagnesemia which were replaced. The patient responded well and is feeling much better. Her symptoms correlate with recent chemotherapy dosing. She is discharged in improved and stable condition to continue home health care services Physical Exam Narrative: Obese white female in no acute distress. Heart: Regular normal S1-S2 without murmurs clicks gallops or rubs Lungs: Clear to auscultation without wheezes rales or rhonchi Abdomen obese soft nontender nondistended positive bowel sounds no hepatosplenomegaly extremities: No clubbing cyanosis or edema Discharge Data Studies Completed and Pending Completed Studies During Hospitalization Category Date Time Status CT chest abdomen pelvis [[place] [id number] Cat Scan 10/18/21 16:38 Completed ] Routine CXRP [XR chest 1V portable [id number]] Stat Exams 10/18/21 12:26 Completed Pending at discharge Category Date Time Status Blood Culture Stat Lab 10/18/21 13:05 Results Clostridioides Difficile PCR Routine Lab 10/18/21 20:09 Results Enteric Bacterial Panel by PCR Routine Lab 10/18/21 20:09 Results Enteric Parasite Panel by PCR Routine Lab 10/18/21 20:09 Results Immunochemical Fecal OCB Routine Lab 10/18/21 20:09 Results Lactoferrin Routine Lab 10/18/21 20:09 Results Radiology Impressions Chest X-Ray 10/18/21 12:26 IMPRESSION: No acute cardiopulmonary abnormality. Chest/Abdomen/Pelvis CT 10/18/21 16:38 IMPRESSION: 1. No acute intrathoracic findings. 2. T11 compression fracture, new since 08/09/2021 and progressive since 09/01/2021. 3. Incidental findings above. IMPRESSION: 1. No acute findings. 2. Left adnexal mass or cyst measuring 5.5 cm, stable since 08/09/2021, corresponding to a suspected malignant lesion identified on ultrasound 05/14/2021 (prior ultrasound images are not available for comparison). 3. Incidental findings above. COMMENTS: For patients with an IVC filter, recommend assessment for a management plan for the patient's IVC filter. If there is no established management plan, recommend referral to an interventional clinician on a nonemergent basis for evaluation. Laboratory Results WBC 5.8 10^3/uL (4.0-10.0) 10/20/21 05:18 RBC 3.32 10^6/uL (4.1-5.3) L 10/20/21 05:18 Hgb 9.5 g/dL (11.5-15.3) L D 10/20/21 05:18 Hct 32.1 % (37.0-47.0) L D 10/20/21 05:18 MCV 96.7 fl (81-99) 10/20/21 05:18 MCH 28.6 pg (28.0-34.0) 10/20/21 05:18 MCHC 29.6 g/dL (30.0-36.0) L 10/20/21 05:18 RDW 20.3 % (12.1-15.1) H 10/20/21 05:18 Plt Count 204 10^3/cmm (130-400) 10/20/21 05:18 MPV 9.0 fL (7.4-10.4) 10/20/21 05:18 Neut % (Auto) 51.4 % 10/20/21 05:18 Lymph % (Auto) 29.2 % 10/20/21 05:18 [place] % (Auto) 14.9 % 10/20/21 05:18 Eos % (Auto) 1.2 % 10/20/21 05:18 Baso % (Auto) 0.9 % 10/20/21 05:18 Neut # (Auto) 2.98 10^3/uL (1.8-7.7) 10/20/21 05:18 Lymph # (Auto) 1.7 10^3/uL (0.8-4.8) 10/20/21 05:18 [place] # (Auto) 0.9 10^3/uL (0.2-0.9) 10/20/21 05:18 Eos # (Auto) 0.1 10^3/uL (0.0-0.8) 10/20/21 05:18 Baso # (Auto) 0.1 10^3/uL (0.0-0.1) 10/20/21 05:18 Nucleated RBC % (auto) 0.5 % 10/20/21 05:18 Nucleated RBCs # 0.0 /100WBC 10/20/21 05:18 Sodium 139 mmol/L (136-145) 10/21/21 13:15 Potassium 4.2 mmol/L (3.5-5.1) 10/21/21 13:15 Chloride 105 mmol/L (98-107) 10/21/21 13:15 Carbon Dioxide 24 mmol/L (22-29) 10/21/21 13:15 Anion Gap 14.2 (5-19) 10/21/21 13:15 BUN 5 mg/dL (8-23) L 10/21/21 13:15 Creatinine 0.7 mg/dL (0.5-0.9) 10/21/21 13:15 GFR Calculation Not Reportable 10/21/21 13:15 Glucose 118 mg/dL (65-115) H 10/21/21 13:15 Estimat Average Glucose 82 10/19/21 04:30 Hemoglobin A1c 4.5 % (4.0-6.0) 10/19/21 04:30 Calculated Osmolality 286 mOsm/kg (285-295) 10/21/21 13:15 Lactic Acid 4.4 mmol/L (0.5-2.2) H* 10/18/21 12:15 Lactic Acid (Sepsis) 2.3 mmol/L (0.5-2.2) H 10/18/21 14:51 Calcium 7.6 mg/dL (8.5-10.5) L 10/21/21 13:15 Phosphorus 3.1 mg/dL (2.5-4.5) 10/19/21 04:30 Magnesium 2.0 mg/dL (1.7-2.3) 10/21/21 13:15 Iron 78 ug/dL (37-145) 10/18/21 12:15 TIBC 148 mcg/dl 10/18/21 12:15 % Saturation 52.7 % (20-50) H 10/18/21 12:15 Unsat Iron Binding 70 ug/dL (112-347) L 10/18/21 12:15 Total Bilirubin 0.4 mg/dL (0.15-1.2) 10/20/21 05:18 AST 11 U/L (0-32) 10/20/21 05:18 ALT < 5 U/L (0-33) 10/20/21 05:18 Alkaline Phosphatase 71 IU/L (35-105) 10/20/21 05:18 Total Protein 4.7 g/dL (6.6-8.7) L 10/20/21 05:18 Albumin 2.2 g/dL (3.5-5.2) L 10/20/21 05:18 Globulin 2.5 g/dL (1.3-4.6) 10/20/21 05:18 Triglycerides 89 mg/dL (0-150) 10/19/21 04:30 Cholesterol 85 mg/dL (0-200) 10/19/21 04:30 LDL Cholesterol, Calc 28 mg/dL (50-129) L 10/19/21 04:30 HDL Cholesterol 39 mg/dL (60-100) L 10/19/21 04:30 LDL/HDL Ratio 0.72 RATIO (0.00-3.22) 10/19/21 04:30 Cholesterol/HDL Ratio 2.18 mg/dL (0.0-4.40) 10/19/21 04:30 Lipase 11 U/L (13-60) L 10/18/21 12:15 Vitamin B12 1267 pg/mL (232-1245) H 10/18/21 12:15 Folate 19.1 ng/mL (4.8-37.3) 10/18/21 19:30 Procalcitonin 0.21 ng/mL (0-0.5) 10/19/21 04:30 TSH 2.34 uIU/mL (0.27-4.20) 10/18/21 12:15 Random Cortisol 14.34 ug/dL (2.47-19.5) 10/18/21 19:30 Urine Color Dark yellow (Yellow) 10/18/21 16:51 Urine Appearance Turbid (CLEAR) 10/18/21 16:51 Urine pH 6 (5-7) 10/18/21 16:51 Ur Specific [place] 1.015 (1.005-1.030) 10/18/21 16:51 Urine Protein Neg (Negative) 10/18/21 16:51 Urine Glucose (UA) Norm (Normal) 10/18/21 16:51 Urine Ketones 1+ (Negative) H 10/18/21 16:51 Urine Blood 3+ (Negative) H 10/18/21 16:51 Urine Nitrate Negative (Negative) 10/18/21 16:51 Urine Bilirubin Neg (Negative) 10/18/21 16:51 Urine Urobilinogen Norm mg/dL (Negative) 10/18/21 16:51 Ur Leukocyte Esterase 2+ (Negative) H 10/18/21 16:51 Urine RBC 5-10 /hpf (0-2) H 10/18/21 16:51 Urine WBC Too numerous to cnt /hpf (0-5) H 10/18/21 16:51 Ur Eosinophil Smear 0 (0-0) 10/18/21 16:51 Ur Squamous Epith Cells None /hpf (0-5) 10/18/21 16:51 Amorphous Sediment Not Reportable 10/18/21 16:51 Urine Bacteria 2+ /hpf (NONE) H 10/18/21 16:51 Urine Eosinophils No eosinophils seen 10/18/21 16:51 Ur Random Sodium 80 mmol/L 10/18/21 16:51 Ur Random Potassium 21 mmol/L 10/18/21 16:51 Ur Random Chloride 53 mmol/L 10/18/21 16:51 Urine Creatinine 143 mg/dL (28-217) 10/18/21 16:51 Blood Type O Negative 10/19/21 12:15 Rho(D) Type Negative 10/19/21 12:15 Antibody Screen Negative 10/19/21 12:15 Crossmatch See Detail 10/19/21 12:15 Vitals Last Vital Signs Temp 97.7 F 10/21/21 11:10 Pulse 73 10/21/21 11:10 Resp 16 10/21/21 11:10 BP 129/74 10/21/21 11:10 Pulse Ox 97 10/21/21 11:10 O2 Del Method 10/21/21 11:10 FiO2 21 10/18/21 20:59 Discharge Plan Discharge Patient Disposition: Home Condition: Stable Prescriptions: Continued loratadine [Claritin] 10 mg Tablet 10 mg PO DAILY PRN (Reason: Allergy Symptoms) hydrocodone-acetaminophen 5-325 mg Tablet 1 tab PO Q4H PRN (Reason: Pain) prochlorperazine maleate 10 mg Tablet 10 mg PO Q6H PRN (Reason: Nausea) ondansetron 4 mg tablet,disintegrating 4 mg PO Q6H PRN (Reason: nausea and vomiting) Qty: 14 0RF hydroxyzine HCl 25 mg Tablet 25 mg PO DAILY@12 PRN (Reason: Itching) tramadol 50 mg Tablet 50 mg PO QID PRN (Reason: Pain) duloxetine 30 mg Capsule,Delayed Release(Dr/Ec) 30 mg PO DAILY Discharge Orders: Discharge Order (Routine); Ordered 10/21/21 Ordered By: Joe Quintanilla Referrals: [facility] [Outside] Corey Marquez MD [Physician] - (Return to surgery office first available to discuss outpatient EGD and colonoscopy for anemia.) Nils Gambino DO [Primary Care Provider] - Discharge Diet: Advance as tolerated Discharge Activity: Increase activity as tolerated Patient Instructions: Dehydration (GEN), Hypokalemia (GEN) Discharge Attestations Time Spent in Discharge Care*: greater than 30 min Quality Metrics Clinical Quality Measures [ No reported AMI, CVA or VTE this stay] Coding Level of Care Code Acute Chg FW DC note Diagnoses Anemia following use of chemotherapeutic drug D64.81 Acute kidney injury N17.9 Dehydration E86.0 Hypotension I95.9 Bilateral hydronephrosis N13.30 Bilateral ureteral obstruction N13.5 Right leg DVT I82.401 Ovarian cancer C56.9 On antineoplastic chemotherapy Z79.899 Physical deconditioning R53.81 Hypokalemia E87.6 Weakness R53.1
[2021-10-21 15:27] VITALS: BP 137/84; PULSE 78; RESP 16; TEMP 36.7; O2SAT 95
== END 2021-10-21 16:41 | disposition home health service (06) | DRG 812 ==
LOC: ER 13:56 → MEDSURG 15:48
PROVIDERS: Student in an Organized Health Care Education/Training Program; Admitting Provider Student in an Organized Health Care Education/Training Program; Emergency Provider Emergency Medicine; PCP Family Medicine; Visit Provider Internal Medicine
DX: D64.81 Anemia due to antineoplastic chemotherapy (principal); N17.9 Acute kidney failure, unspecified; D84.821 Immunodeficiency due to drugs; T45.1X5A Adverse effect of antineoplastic and immunosuppressive drugs, initial encounter; I95.9 Hypotension, unspecified; E86.0 Dehydration; Z86.718 Personal history of other venous thrombosis and embolism; Z95.828 Presence of other vascular implants and grafts; C54.1 Malignant neoplasm of endometrium; Z79.899 Other long term (current) drug therapy; Z85.72 Personal history of non-Hodgkin lymphomas; Z96.82 Presence of neurostimulator; Z90.49 Acquired absence of other specified parts of digestive tract; Z96.653 Presence of artificial knee joint, bilateral; Z96.0 Presence of urogenital implants; Z87.891 Personal history of nicotine dependence; Z79.891 Long term (current) use of opiate analgesic; E83.42 Hypomagnesemia; R53.1 Weakness; Z87.440 Personal history of urinary (tract) infections; Z66 Do not resuscitate; E87.6 Hypokalemia
CPT/HCPCS: 36415; 36430; 71045; 71250; 74176; 80048; 80053; 80061; 81001; 82274; 82436; 82533; 82570; 82607; 82746; 83036; 83540; 83550; 83605; 83630; 83690; 83735; 84100; 84133; 84145; 84300; 84443; 85025; 85999; 86850; 86900; 86920; 87040; 87077; 87086; 87186; 87493; 87506; 93005; 94664; 96361; 96365; 96367; 96372; 96375; 99285; C9113; J1644; J2405; J2543; J3370; J3475; J3490; J7030; J7050; P9016

== ENCOUNTER 2021-10-22 13:45 | Outpatient (CLI) | payer MEDICARE, OTHER, SELFPAY ==
--- NOTE | 2021-10-22 14:01 | CTR_ITS ---
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 Immunohistochemistry positive for cd45, cd20 weakly, . bcl-2, mum-1, pax-5, and ki-67. Prior surgery; Surgery type: Tubal, colon, ureter stent, gb; Additional info: Malignant neoplasm of endometrium f/u. 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 Immunohistochemistry positive for cd45, cd20 weakly, . bcl-2, mum-1, pax-5, and ki-67. TECHNIQUE: Imaging protocol: Diagnostic computed tomography of the chest with contrast. Radiation optimization: All CT scans at this facility use at least one of these dose optimization techniques: automated exposure control; mA and/or kV adjustment per patient size (includes targeted exams where dose is matched to clinical indication); or iterative reconstruction. Contrast material: OMNIPAQUE 350; Contrast volume: 95 ml; Contrast route: INTRAVENOUS (IV); Other contrast: Oral; COMPARISON: [place] [id number] 10/18/2021 6:30 PM RADIATION DOSE METRICS: Total DLP (mGy-cm): 1629.17 FINDINGS: Tubes, catheters and devices: Neurostimulator lead noted. Right subclavian approach MediPort is in satisfactory position, with distal tip at the level of the SVC/RA junction. Lungs: Unremarkable. No consolidation. No masses. Pleural spaces: Unremarkable. No pneumothorax. No pleural effusion. Heart: Normal heart size. Normal RV/LV ratio. Coronary atherosclerotic calcifications seen. No pericardial effusion. Lymph nodes: Unremarkable. No enlarged lymph nodes. Vasculature: There is scattered linear filling defects within segmental/subsegmental pulmonary artery branches bilaterally, consistent with acute pulmonary emboli. Mild diffuse atherosclerotic disease is present. Unchanged ectatic ascending aorta measuring 4.1 cm in diameter. Diaphragm: A small hiatal hernia is present. Bones/joints: Degenerative changes of the spine seen. Unchanged chronic severe compression fracture deformity of T11. Soft tissues: Unremarkable. 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 Immunohistochemistry positive for cd45, cd20 weakly, . bcl-2, mum-1, pax-5, and ki-67. Prior surgery; Surgery type: Tubal, colon, ureter stent, gb; Additional info: Malignant neoplasm of endometrium f/u. 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 Immunohistochemistry positive for cd45, cd20 weakly, . bcl-2, mum-1, pax-5, and ki-67. TECHNIQUE: Imaging protocol: Computed tomography of the abdomen and pelvis with contrast. Radiation optimization: All CT scans at this facility use at least one of these dose optimization techniques: automated exposure control; mA and/or kV adjustment per patient size (includes targeted exams where dose is matched to clinical indication); or iterative reconstruction. Contrast material: OMNIPAQUE 350; Contrast volume: 95 ml; Contrast route: INTRAVENOUS (IV); Other contrast: Oral; COMPARISON: [place] [id number] 10/18/2021 6:30 PM RADIATION DOSE METRICS: Total DLP (mGy-cm): 1629.17 FINDINGS: Tubes, catheters and devices: Neurostimulator noted. Liver: There is an ill-defined focus of decreased attenuation along the anterior aspect of the liver and adjacent to the falciform ligament, consistent with focal fatty infiltration. The liver is otherwise unremarkable. Gallbladder and bile ducts: The gallbladder has been surgically removed. Pancreas: Normal. No ductal dilation. Spleen: There is tiny calcific densities scattered throughout the spleen, likely sequela of previous granulomatous disease. The spleen is otherwise unremarkable. Adrenal glands: Normal. No mass. Kidneys and ureters: Symmetric enhancement of the kidneys. There is a subcentimeter focus of decreased attenuation in the right kidney, which is too small to characterize. There is slight prominence of the collecting system bilaterally, in the setting of bilateral double-J stents, which appear to be in satisfactory position. Stomach and bowel: In the lower pelvis, there is dilated loops of small bowel with wall thickening and transition point in the right lower pelvis, concerning for bowel obstruction. No surrounding inflammatory changes seen. There is tethering of small-bowel loops to the right of the colorectal anastomosis. Patent colorectal anastomosis. Few scattered sigmoid diverticula noted. No associated inflammatory changes identified. Appendix: No evidence of appendicitis. Intraperitoneal space: Unremarkable. No free air. No significant fluid collection. Vasculature: An IVC filter is in place. A small amount of nonocclusive thrombus is seen within IVC at the level of and below the IVC filter. Lymph nodes: Unremarkable. No enlarged lymph nodes. Urinary bladder: Unremarkable as visualized. Reproductive: Normal uterus. 4.3 cm left ovarian cysts noted. Bones/joints: Degenerative changes of the spine seen. Unchanged chronic moderate to severe compression fracture deformity of L1 with evidence of grade 1 retrolisthesis. Grade 1 retrolisthesis of L2 and grade 1 anterolisthesis of L4 on L5 is re-identified. Soft tissues: Unremarkable. CT/CT chest abd pel w con* IMPRESSION: 1. Acute segmental and subsegmental pulmonary emboli bilaterally. No evidence of right heart strain. 2. Unchanged ectatic ascending aorta. IMPRESSION: Imaging findings of small-bowel obstruction with transition point in the right lower pelvis/adjacent to the colorectal anastomosis. COMMENTS: For patients with an IVC filter, recommend assessment for a management plan for the patient's IVC filter. If there is no established management plan, recommend referral to an interventional clinician on a nonemergent basis for evaluation.
[2021-10-22] MEDS: iohexol 350 mg/mL 100 mL Btl IV (15:44)
[2021-10-22] MEDS: barium sulfate 450 mL Oral Susp PO (15:44)
== END 2021-10-22 13:46 | disposition home or self-care (01) ==
LOC: RAD 13:46
PROVIDERS: PCP Family Medicine; Visit Provider Nurse Practitioner Family
DX: C54.1 Malignant neoplasm of endometrium (principal); I26.99 Other pulmonary embolism without acute cor pulmonale; I77.819 Aortic ectasia, unspecified site
CPT/HCPCS: 71260; 74177

== ENCOUNTER 2021-11-05 09:27 | Emergency (ER) | payer MEDICARE, OTHER, SELFPAY ==
[2021-11-05 09:35] VITALS: BP 103/70; PULSE 101; RESP 16; TEMP 36.5; O2SAT 87; BMI 36.0
--- NOTE | 2021-11-05 09:42 | XR_ITS ---
WS: [id number] Exam: XR chest 1V portable [id number] Date/Time of Exam: 11/05/2021 9:52 AM Reason For Exam: dyspnea/cough Comparison 10/18/2021. The lungs are fully expanded and clear. The heart is not enlarged. The mediastinum is normal in conto ur. A right-sided MediPort appears to end in the lower one third of the SVC. Neurostimulator electrod es are noted in the mid thoracic spinal region. Marked tortuosity of the thoracic aorta. Bony structu res are intact. Moderately advanced DJD of the shoulders. XR/XR chest 1V portable [id number] IMPRESSION: 1. No acute cardiopulmonary finding. No change.
--- NOTE | 2021-11-05 09:54 | W.ED.WEAKNES ---
HPI - Weakness General: Chief complaint: Weakness Stated complaint: Possible dehydration Time Seen by Provider: 11/05/21 09:33 Source: patient Mode of arrival: ambulatory History of Present Illness: 68-year-old female with a history of ovarian CA she tells me she is scheduled for surgery tomorrow. States she has been feeling weak and she wants to have fluids today. She has been going through chemotherapy her last treatment was 5 weeks ago. She has been a little bit nauseous and dizzy. She denies any medic easy melena hematemesis or coffee-ground emesis. She does not get a little short of breath with exertion but that is not a new issue at her chronic baseline. She denies any chest pain or abdominal pain. No dysuria urgency or frequency. She has a history of B-cell lymphoma for which she is previously was seeing Dr. Baugh which she has not established locally with an oncologist to help deal with these issues. MD Complaint: generalized weakness Onset (ago): day(s) Duration: constant Location: generalized Migration: none Severity: mild Relieving factors: none Exacerbating factors: none Associated symptoms: Reports nausea and short of breath; Denies chest pain, chills, confusion, melena, decreased appetite, diaphoresis, dysuria, easy bruising, fever(s), headache(s), myalgias, syncope or vomiting Review of Systems Const: Denies: fever(s), chills, fatigue, malaise or diaphoresis ENMT: Denies: throat pain, ear or mastoid pain, nasal discharge or nasal congestion Card: Denies: chest pain or syncope Resp: Denies: dyspnea, productive cough or non-productive cough GI: Reports: nausea; Denies: abdominal pain, vomiting or melena : Denies: flank pain, difficulty voiding, dysuria, urinary frequency or urinary urgency Musc: Denies: neck pain or back pain Skin/Breast: Denies: rash or pruritus Neuro: Denies: headache(s) or confusion Wally/Lymph: Denies: easy bruising PFSH ED PFSH: Medical History Acquired immunocompromised state Bilateral hydronephrosis Diffuse large B cell lymphoma Diagnosed 2018 On antineoplastic chemotherapy Ovarian cancer Followed in [place] Physical deconditioning Port-A-Cath in place Presence of IVC filter Right leg DVT (06/2021) GSV extending to CFV Status post insertion of nerve stimulator Vancomycin resistant Enterococcus infection Surgical History H/O cataract extraction bilateral eyes H/O tubal ligation History of colon resection History of left knee replacement History of removal of Port-a-Cath History of total right knee replacement History of ureter stent Bilateral, due to obstruction related to malignancy S/P cholecystectomy Status post hysteroscopy 06/11/2021- hysteroscopy with D&C via myosure performed by Dr. Victoria at [facility] Family History Mother , at age Hypertension Cancer pancreatic Father , at age 72 Colon cancer 72 Denies family history of Ovarian cancer Diabetes Clotting disorder Heart disease Hyperlipidemia Breast cancer Anesthesia complication Bleeding disorder Uterine cancer Thyroid condition Stroke Social History Smoking and tobacco status: former smoker Second hand smoke exposure: No Alcohol intake: never Adopted: No Caregiver/support person: Yes Lives independently: Yes Household members: significant other Housing: House Marital status: / service: No Current occupational status: retired Current occupational exposures/hazards: No Pets and animals: Yes History of recent travel: No Leisure activites: exercise Sexually active: No Current gender identity: Female Cheli/Congregation: [employer] Physical Exam Const: COMMON NORMALS: no acute distress GENERAL APPEARANCE: cooperative and comfortable ORIENTATION/CONSCIOUSNESS: Yes awake, Yes oriented to person, Yes oriented to place and Yes oriented to time HENMT: COMMON NORMALS: normocephalic, atraumatic and hearing grossly normal bilaterally HEAD & SCALP: normocephalic and atraumatic Resp: COMMON NORMALS: normal respiratory effort, No retractions, No use of accessory muscles and clear to auscultation bilaterally AUSCULTATION: clear to auscultation bilaterally Cardio: COMMON NORMALS: regular rate, regular rhythm and No murmurs present (Cardio) RATE: regular rate RHYTHM: regular rhythm GI: COMMON NORMALS: Soft to palpation and No hepatosplenomegaly present AUSCULTATION: Yes normoactive bowel sounds PALPATION: Yes Soft to palpation, No Tenderness to palpation present (GI), No Guarding due to palpation present (GI) and Yes No hepatosplenomegaly present Extremity: COMMON NORMALS: normal to inspection, capillary refill normal, no clubbing, cyanosis or edema, no calf tenderness and no pedal edema Neuro: SENSORIUM/ORIENTATION: Yes oriented to person, Yes oriented to place and Yes oriented to time Skin: COMMON NORMALS: no rashes or lesions noted GENERAL SKIN EXAM: no rashes or lesions noted Course Vital Signs: Vital signs: Vital Signs Temperature 97.7 F 11/05/21 09:35 Pulse Rate 100 11/05/21 12:00 Respiratory Rate 16 11/05/21 09:35 Blood Pressure 152/99 11/05/21 12:00 Pulse Oximetry 95 11/05/21 11:00 Oxygen Delivery Me thod 11/05/21 11:00 MDM - Weakness Medical Decision Making Patient had some mild hypokalemia. She did improve significantly after oral supplementation which was verified by repeat lab. She is feeling better after fluids we will discharge her home we will get her set up with oncology so in the future if she has issues with treatment of her cancer many of these such as rehydration can be managed over at the cancer center. Discussed with Dr. Baugh he concurs that he has seen in the past for her lymphoma. He was unaware of the new ovarian cancer diagnosis but would be happy to see her and assist in her care. Medical Records I reviewed the patient's medical records. Lab Data I reviewed the patient's lab results. : 11/05/21 09:54 11/05/21 11:30 Radiology Impressions Chest X-Ray 11/05/21 09:42 IMPRESSION: 1. No acute cardiopulmonary finding. No change. Laboratory Results WBC 6.4 10^3/uL (4.0-10.0) 11/05/21 09:54 RBC 3.54 10^6/uL (4.1-5.3) L 11/05/21 09:54 Hgb 10.4 g/dL (11.5-15.3) L 11/05/21 09:54 Hct 33.9 % (37.0-47.0) L 11/05/21 09:54 MCV 95.8 fl (81-99) 11/05/21 09:54 MCH 29.4 pg (28.0-34.0) 11/05/21 09:54 MCHC 30.7 g/dL (30.0-36.0) 11/05/21 09:54 RDW 19.6 % (12.1-15.1) H 11/05/21 09:54 Plt Count 194 10^3/cmm (130-400) 11/05/21 09:54 MPV 9.1 fL (7.4-10.4) 11/05/21 09:54 Neut % (Auto) 58.6 % 11/05/21 09:54 Lymph % (Auto) 28.2 % 11/05/21 09:54 [place] % (Auto) 8.5 % 11/05/21 09:54 Eos % (Auto) 3.3 % 11/05/21 09:54 Baso % (Auto) 0.9 % 11/05/21 09:54 Neut # (Auto) 3.75 10^3/uL (1.8-7.7) 11/05/21 09:54 Lymph # (Auto) 1.8 10^3/uL (0.8-4.8) 11/05/21 09:54 [place] # (Auto) 0.5 10^3/uL (0.2-0.9) 11/05/21 09:54 Eos # (Auto) 0.2 10^3/uL (0.0-0.8) 11/05/21 09:54 Baso # (Auto) 0.1 10^3/uL (0.0-0.1) 11/05/21 09:54 Nucleated RBC % (auto) 0 % 11/05/21 09:54 Nucleated RBCs # 0.0 /100WBC 11/05/21 09:54 Sodium 140 mmol/L (136-145) 11/05/21 09:54 Potassium 3.8 mmol/L (3.5-5.1) 11/05/21 11:30 Chloride 105 mmol/L (98-107) 11/05/21 09:54 Carbon Dioxide 20 mmol/L (22-29) L 11/05/21 09:54 Anion Gap 17.4 (5-19) 11/05/21 09:54 BUN 9 mg/dL (8-23) 11/05/21 09:54 Creatinine 0.7 mg/dL (0.5-0.9) 11/05/21 09:54 GFR Calculation Not Reportable 11/05/21 09:54 Glucose 86 mg/dL (65-115) 11/05/21 09:54 Calculated Osmolality 288 mOsm/kg (285-295) 11/05/21 09:54 Calcium 7.8 mg/dL (8.5-10.5) L 11/05/21 09:54 Total Bilirubin 0.4 mg/dL (0.15-1.2) 11/05/21 09:54 AST 14 U/L (0-32) 11/05/21 09:54 ALT 8 U/L (0-33) 11/05/21 09:54 Alkaline Phosphatase 82 U/L (35-105) 11/05/21 09:54 Total Protein 5.7 g/dL (6.6-8.7) L 11/05/21 09:54 Albumin 2.5 g/dL (3.5-5.2) L 11/05/21 09:54 Globulin 3.2 g/dL (1.3-4.6) 11/05/21 09:54 Discharge Plan Discharge Patient Disposition: Home Clinical Impression: Acute hypokalemia, Ovarian cancer, Dehydration Condition: Stable Prescriptions: New potassium chloride 20 mEq tablet,ER particles/crystals 20 meq PO DAILY Qty: 10 0RF No Action loratadine [Claritin] 10 mg Tablet 10 mg PO DAILY PRN (Reason: Allergy Symptoms) hydrocodone-acetaminophen 5-325 mg Tablet 1 tab PO Q4H PRN (Reason: Pain) prochlorperazine maleate 10 mg Tablet 10 mg PO Q6H PRN (Reason: Nausea) ondansetron 4 mg tablet,disintegrating 4 mg PO Q6H PRN (Reason: nausea and vomiting) Qty: 14 0RF hydroxyzine HCl 25 mg Tablet 25 mg PO DAILY PRN (Reason: Itching) duloxetine 30 mg Capsule,Delayed Release(Dr/Ec) 30 mg PO BEDTIME dexamethasone 6 mg Tablet See Rx Instructions .ROUTE .COMPLEX Rx Instructions: 12mg before chemo as directed by tete Pepcid 20 mg Tablet 20 mg PO .BEFORE CHEMO Ativan 0.5 mg Tablet 0.5 mg PO .BEFORE CHEMO Benadryl 25 mg Capsule 25 mg PO .BEFORE CHEMO paclitaxel 6 mg/mL Concentrate See Rx Instructions .ROUTE .COMPLEX Rx Instructions: 390.25 mg every 3 weeks (has had 3 cycles per [facility] last dose on 09/11/21) Neulasta 6 mg/0.6 mL Syringe 6 mg SUBCUT .ONCE POST CHEMO Aloxi 0.25 mg/5 mL Solution 0.25 mg IV .BEFORE CHEMO carboplatin 10 mg/mL Solution See Rx Instructions .ROUTE .COMPLEX Rx Instructions: 615.78 mg every 3 weeks (has had 3 cycles per [employer] [facility] last dose on 09/11/21) Emend (fosaprepitant) 150 mg Recon Soln 150 mg IV .BEFORE CHEMO Discharge Orders: Discharge ED (Routine); Ordered 11/05/21 Ordered By: Edwin Cruz Referrals: Nils Gambino, [Primary Care Provider] - Discharge Diet: Usual diet Discharge Activity: Resume usual activity Patient Instructions: Opioid Safety Activity Restrictions/Additional Instructions: Case management will make referal to local oncology, Coding Level of Care Code ED Quality [employer] for Tono Fwdwaine Exam Detailed
[2021-11-05] MEDS: sodium chloride 0.9% 1,000 ML 999 ML IV ×2 (09:59→10:00)
[2021-11-05 10:01] LABS: Basophils # 0.1 10^3/uL (0.0-0.1); Basophils % 0.9 %; Eosinophils # 0.2 10^3/uL (0.0-0.8); Eosinophils % 3.3 %; Hematocrit 33.9 % (37.0-47.0); Hemoglobin 10.4 g/dL (11.5-15.3); Lymphocytes # 1.8 10^3/uL (0.8-4.8); Lymphocytes % 28.2 %; Mean Corpuscular HGB Conc 30.7 g/dL (30.0-36.0); Mean Corpuscular Hemoglobin 29.4 pg (28.0-34.0); Mean Corpuscular Volume 95.8 fl (81-99); Mean Platelet Volume 9.1 fL (7.4-10.4); Monocytes # 0.5 10^3/uL (0.2-0.9); Monocytes % 8.5 %; Neutrophils # 3.75 10^3/uL (1.8-7.7); Neutrophils % 58.6 %; Nucleated Red Blood Cells % 0 %; Platelet Count 194 10^3/cmm (130-400); Red Blood Count 3.54 10^6/uL (4.1-5.3); Red Cell Distribution Width 19.6 % (12.1-15.1); White Blood Count 6.4 10^3/uL (4.0-10.0)
[2021-11-05 10:24] LABS: Alanine Aminotransferase 8 U/L (0-33); Albumin Level 2.5 g/dL (3.5-5.2); Alkaline Phosphatase 82 U/L (35-105); Anion Gap 17.4 (5-19); Aspartate Amino Transferase 14 U/L (0-32); Blood Urea Nitrogen 9 mg/dL (8-23); Calcium 7.8 mg/dL (8.5-10.5); Carbon Dioxide 20 mmol/L (22-29); Chloride 105 mmol/L (98-107); Globulin 3.2 g/dL (1.3-4.6); Glucose 86 mg/dL (65-115); Osmolality Calculated 288 mOsm/kg (285-295); Sodium 140 mmol/L (136-145); Total Bilirubin 0.4 mg/dL (0.15-1.2); Total Protein 5.7 g/dL (6.6-8.7)
[2021-11-05 10:25] LABS: Potassium 2.4 mmol/L (3.5-5.1)
[2021-11-05] MEDS: potassium chloride oral liq 20 mEq/15 mL UDC 60 MEQ PO (10:33)
[2021-11-05 10:35] VITALS: BP 146/84; PULSE 83; O2SAT 96
--- NOTE | 2021-11-05 10:47 | PC.PHAR ---
pt states she takes care of her own medications-pt states she only takes cymbalta 30mg hs rx filled 10/07/21 30mg bid-chemo meds and pre and post chemo meds entered are from what the pharmacy [facility] states they give the pt- called [phone] and they transferred to pharmacy who verified pts meds states the pt has had 3 cycles states was getting every 3 weeks states last time pt got was 09/11/21-notes are made in the pharmacy comments
[2021-11-05 11:00] VITALS: BP 118/73; O2SAT 95
[2021-11-05 11:53] LABS: Potassium 3.8 mmol/L (3.5-5.1)
[2021-11-05 12:00] VITALS: BP 152/99; PULSE 100
--- NOTE | 2021-11-06 12:20 | DCPLANNER ---
Addendum entered by Haley Oakley 11/21/21 11:53: Patient had a follow up appointment scheduled with oncology - patient did attend appointment. Original Note: global compensation manager had message to schedule a follow up appointment for patient with oncology. global compensation manager spoke with Nancy Damon, audio visual coordinator at oncology. global compensation manager gave clinic patients information, which will be printed and reviewed. Clinic will call patient with appointment information.
== END 2021-11-05 12:24 | disposition home or self-care (01) ==
PROVIDERS: Emergency Provider Family Medicine; PCP Family Medicine
DX: E87.6 Hypokalemia (principal); E86.0 Dehydration; C56.9 Malignant neoplasm of unspecified ovary; Z87.891 Personal history of nicotine dependence; Z85.72 Personal history of non-Hodgkin lymphomas; Z79.899 Other long term (current) drug therapy
CPT/HCPCS: 71045; 80053; 84132; 85025; 96360; 96361; 99284; J7030

== ENCOUNTER 2021-12-01 14:28 | Emergency (ER) | payer MEDICARE, OTHER, SELFPAY ==
[2021-12-01 14:31] VITALS: BP 87/48; PULSE 101; RESP 17; BMI 33.5
[2021-12-01 15:07] LABS: Basophils % 2.1 %; Eosinophils % 3.2 %; Hematocrit 33.5 % (37.0-47.0); Hemoglobin 10.5 g/dL (11.5-15.3); Lymphocytes # 0.6 10^3/uL (0.8-4.8); Lymphocytes % 64.2 %; Mean Corpuscular HGB Conc 31.3 g/dL (30.0-36.0); Mean Corpuscular Hemoglobin 29.1 pg (28.0-34.0); Mean Corpuscular Volume 92.8 fl (81-99); Mean Platelet Volume 10.6 fL (7.4-10.4); Monocytes # 0.1 10^3/uL (0.2-0.9); Monocytes % 8.4 %; Nucleated Red Blood Cells % 0 %; Platelet Count 59 10^3/cmm (130-400); Red Blood Count 3.61 10^6/uL (4.1-5.3); Red Cell Distribution Width 16.7 % (12.1-15.1)
[2021-12-01] MEDS: ondansetron 2 mg/ML SDV 2 mL 4 MG IVP (15:08)
[2021-12-01] MEDS: lactated ringers 1,000 ML 999 ML IV ×2 (15:08→18:17)
[2021-12-01 15:10] VITALS: BP 103/61
[2021-12-01 15:25] LABS: Alanine Aminotransferase 13 U/L (0-33); Alkaline Phosphatase 63 U/L (35-105); Anion Gap 23.8 (5-19); Aspartate Amino Transferase 18 U/L (0-32); Blood Urea Nitrogen 14 mg/dL (8-23); Calcium 8.2 mg/dL (8.5-10.5); Carbon Dioxide 22 mmol/L (22-29); Chloride 93 mmol/L (98-107); Globulin 3.6 g/dL (1.3-4.6); Glucose 118 mg/dL (65-115); Osmolality Calculated 284 mOsm/kg (285-295); Sodium 136 mmol/L (136-145); Total Bilirubin 0.8 mg/dL (0.15-1.2); Total Protein 6.6 g/dL (6.6-8.7)
--- NOTE | 2021-12-01 15:33 | ED_ITS ---
HPI - Weakness General: Chief complaint: Weakness Stated complaint: GENERALIZED WEAKNESS/ NAUSEA/ DIARRHEA Time Seen by Provider: 12/01/21 14:31 Source: patient Mode of arrival: EMS Limitations: no limitations History of Present Illness: 68-year-old female presents emergency room complaining of generally being weak with nausea and diarrhea. She denies any chest pain no abdominal pain she has a history oEndometrial cancer which she is currently being treated. She had been coming here frequently and been seeing oncology in [place] that we had encouraged her to follow-up with a local oncologist to help manage her overall care. She has been seeing Dr. Baugh. She denies chest pain or shortness of breath at this time. MD Complaint: generalized weakness Onset (ago): week(s) Duration: intermittent and progressively worsening Location: generalized Severity: moderate Relieving factors: none Exacerbating factors: none Associated symptoms: Reports decreased appetite, easy bruising and nausea; Denies chest pain, chills, confusion, melena, diaphoresis, dysuria, fever(s), headache(s) or myalgias Review of Systems Const: Denies: fever(s), chills or diaphoresis ENMT: Denies: throat pain, ear or mastoid pain, nasal discharge or nasal congestion Card: Denies: chest pain Resp: Denies: dyspnea, productive cough or non-productive cough GI: Reports: nausea; Denies: melena : Denies: dysuria Skin/Breast: Denies: rash or pruritus Neuro: Denies: headache(s) or confusion Wally/Lymph: Reports: easy bruising PFSH ED PFSH: Medical History Acquired immunocompromised state Bilateral hydronephrosis Diffuse large B cell lymphoma Diagnosed 2018 Endometrial carcinoma On antineoplastic chemotherapy Ovarian cancer Followed in [place] Physical deconditioning Port-A-Cath in place Presence of IVC filter Right leg DVT (06/2021) GSV extending to CFV Status post insertion of nerve stimulator Vancomycin resistant Enterococcus infection Surgical History H/O cataract extraction bilateral eyes H/O tubal ligation History of colon resection History of left knee replacement History of removal of Port-a-Cath History of total right knee replacement History of ureter stent Bilateral, due to obstruction related to malignancy S/P cholecystectomy Status post hysteroscopy 06/11/2021- hysteroscopy with D&C via myosure performed by Dr. Victoria at [facility] Family History Mother , at age Hypertension Cancer pancreatic Father , at age 72 Colon cancer 72 Denies family history of Ovarian cancer Diabetes Clotting disorder Heart disease Hyperlipidemia Breast cancer Anesthesia complication Bleeding disorder Uterine cancer Thyroid condition Stroke Social History Smoking and tobacco status: former smoker (smoked x 15 years) Second hand smoke exposure: No Alcohol intake: never Adopted: No Caregiver/support person: Yes Lives independently: Yes Household members: significant other Housing: House Marital status: / service: No Current occupational status: retired Current occupational exposures/hazards: No Pets and animals: Yes History of recent travel: No Leisure activites: exercise Sexually active: No Current gender identity: Female Cheli/Gnosticism: Orthodox Physical Exam Const: COMMON NORMALS: no acute distress GENERAL APPEARANCE: cooperative and comfortable HENMT: COMMON NORMALS: normocephalic, atraumatic and hearing grossly normal bilaterally HEAD & SCALP: normocephalic and atraumatic Resp: COMMON NORMALS: normal respiratory effort, No retractions, No use of acc essory muscles and clear to auscultation bilaterally AUSCULTATION: clear to auscultation bilaterally Cardio: COMMON NORMALS: regular rate, regular rhythm and No murmurs present (Cardio) RATE: regular rate RHYTHM: regular rhythm GI: COMMON NORMALS: Soft to palpation and No hepatosplenomegaly present AUSCULTATION: Yes normoactive bowel sounds PALPATION: Yes Soft to palpation, No Tenderness to palpation present (GI), No Guarding due to palpation present (G I) and Yes No hepatosplenomegaly present Extremity: COMMON NORMALS: normal to inspection, capillary refill normal, no clubbing, cyanosis or edema, no calf tenderness and no pedal edema Skin: COMMON NORMALS: no rashes or lesions noted GENERAL SKIN EXAM: no rashes or lesions noted Course Vital Signs: Vital signs: Vital Signs Temperature 97.9 F 12/01/21 18:00 Pulse Rate 92 12/01/21 18:17 Respiratory Rate 16 12/01/21 18:17 Blood Pressure 103/65 12/01/21 18:17 Pulse Oximetry 94 12/01/21 18:17 Oxygen Delivery Me thod 12/01/21 18:17 MDM - Weakness Medical Decision Making Mildly had dehydrated with hypokalemia. Oral supplementation given. We will discharge patient home on oral potassium supplement. Follow-up with primary care or oncology return if is further problems. Medical Records I reviewed the patient's medical records. Lab Data I reviewed the patient's lab results. : 12/01/21 14:55 12/01/21 14:55 Laboratory Results WBC 1.0 10^3/uL (4.0-10.0) L 12/01/21 14:55 RBC 3.61 10^6/uL (4.1-5.3) L 12/01/21 14:55 Hgb 10.5 g/dL (11.5-15.3) L 12/01/21 14:55 Hct 33.5 % (37.0-47.0) L 12/01/21 14:55 MCV 92.8 fl (81-99) 12/01/21 14:55 MCH 29.1 pg (28.0-34.0) 12/01/21 14:55 MCHC 31.3 g/dL (30.0-36.0) 12/01/21 14:55 RDW 16.7 % (12.1-15.1) H 12/01/21 14:55 Plt Count 59 10^3/cmm (130-400) L 12/01/21 14:55 MPV 10.6 fL (7.4-10.4) H 12/01/21 14:55 Neut % (Auto) 21.0 % 12/01/21 14:55 Lymph % (Auto) 64.2 % 12/01/21 14:55 [place] % (Auto) 8.4 % 12/01/21 14:55 Eos % (Auto) 3.2 % 12/01/21 14:55 Baso % (Auto) 2.1 % 12/01/21 14:55 Neut # (Auto) 0.20 10^3/uL (1.8-7.7) L* 12/01/21 14:55 Lymph # (Auto) 0.6 10^3/uL (0.8-4.8) L 12/01/21 14:55 [place] # (Auto) 0.1 10^3/uL (0.2-0.9) L 12/01/21 14:55 Eos # (Auto) 0.0 10^3/uL (0.0-0.8) 12/01/21 14:55 Baso # (Auto) 0.0 10^3/uL (0.0-0.1) 12/01/21 14:55 Nucleated RBC % (auto) 0 % 12/01/21 14:55 Nucleated RBCs # 0.0 /100WBC 12/01/21 14:55 Sodium 136 mmol/L (136-145) 12/01/21 14:55 Potassium 2.8 mmol/L (3.5-5.1) L* 12/01/21 14:55 Chloride 93 mmol/L (98-107) L 12/01/21 14:55 Carbon Dioxide 22 mmol/L (22-29) 12/01/21 14:55 Anion Gap 23.8 (5-19) H 12/01/21 14:55 BUN 14 mg/dL (8-23) 12/01/21 14:55 Creatinine 1.1 mg/dL (0.5-0.9) H 12/01/21 14:55 GFR Calculation Not Reportable 12/01/21 14:55 Glucose 118 mg/dL (65-115) H 12/01/21 14:55 Calculated Osmolality 284 mOsm/kg (285-295) L 12/01/21 14:55 Calcium 8.2 mg/dL (8.5-10.5) L 12/01/21 14:55 Total Bilirubin 0.8 mg/dL (0.15-1.2) 12/01/21 14:55 AST 18 U/L (0-32) 12/01/21 14:55 ALT 13 U/L (0-33) 12/01/21 14:55 Alkaline Phosphatase 63 U/L (35-105) 12/01/21 14:55 Total Protein 6.6 g/dL (6.6-8.7) 12/01/21 14:55 Albumin 3.0 g/dL (3.5-5.2) L 12/01/21 14:55 Globulin 3.6 g/dL (1.3-4.6) 12/01/21 14:55 Urine Color Yellow (Yellow) 12/01/21 18:03 Urine Appearance Cloudy (CLEAR) 12/01/21 18:03 Urine pH 6 (5-7) 12/01/21 18:03 Ur Specific [place] 1.010 (1.005-1.030) 12/01/21 18:03 Urine Protein 3+ (Negative) H 12/01/21 18:03 Urine Glucose (UA) Norm (Normal) 12/01/21 18:03 Urine Ketones 1+ (Negative) H 12/01/21 18:03 Urine Blood 3+ (Negative) H 12/01/21 18:03 Urine Nitrate Negative (Negative) 12/01/21 18:03 Urine Bilirubin Neg (Negative) 12/01/21 18:03 Urine Urobilinogen Norm mg/dL (Negative) 12/01/21 18:03 Ur Leukocyte Esterase 2+ (Negative) H 12/01/21 18:03 Urine RBC 10-15 /hpf (0-2) H 12/01/21 18:03 Urine WBC Too numerous to cnt /hpf (0-5) H 12/01/21 18:03 Ur Squamous Epith Cells 15-25 /hpf (0-5) H 12/01/21 18:03 Amorphous Sediment Not Reportable 12/01/21 18:03 Urine Bacteria 4+ /hpf (NONE) H 12/01/21 18:03 Discharge Plan Discharge Patient Disposition: Home Clinical Impression: Dehydration, Anemia following use of chemotherapeutic drug, Endometrial carcinoma, Leukopenia, Hypokalemia Condition: Stable Prescriptions: New promethazine 25 mg tablet 25 mg PO Q6H PRN (Reason: nausea and vomiting) Qty: 20 0RF No Action ciprofloxacin HCl 500 mg tablet 500 mg PO BID Qty: 14 1RF dexamethasone 4 mg tablet 4 mg PO .COMPLEX Qty: 10 6RF Rx Instructions: 4 mg orally Take 5 tabs - 6 and 12 hours prior to treatment; potassium chloride 20 mEq tablet extended release 20 meq PO BID 7 Days Qty: 14 0RF loratadine [Claritin] 10 mg Tablet 10 mg PO DAILY PRN (Reason: Allergy Symptoms) hydrocodone-acetaminophen 5-325 mg Tablet 1 tab PO Q4H PRN (Reason: Pain) ondansetron 4 mg tablet,disintegrating 4 mg PO Q6H PRN (Reason: nausea and vomiting) Qty: 14 0RF hydroxyzine HCl 25 mg Tablet 25 mg PO DAILY PRN (Reason: Itching) magnesium oxide 400 mg (241.3 mg magnesium) tablet 400 mg PO BID Qty: 60 0RF potassium chloride 20 mEq tablet,ER particles/crystals 40 meq PO BID Qty: 120 0RF duloxetine 30 mg Capsule,Delayed Release(Dr/Ec) 30 mg PO BEDTIME Ativan 0.5 mg Tablet 0.5 mg PO .BEFORE CHEMO paclitaxel 6 mg/mL Concentrate See Rx Instructions .ROUTE .COMPLEX Rx Instructions: 390.25 mg every 3 weeks (has had 3 cycles per [facility] last dose on 09/11/21) Aloxi 0.25 mg/5 mL Solution 0.25 mg IV .BEFORE CHEMO carboplatin 10 mg/mL Solution See Rx Instructions .ROUTE .COMPLEX Rx Instructions: 615.78 mg every 3 weeks (has had 3 cycles per [facility] last dose on 09/11/21) Emend (fosaprepitant) 150 mg Recon Soln 150 mg IV .BEFORE CHEMO Discharge Orders: Discharge ED (Routine); Ordered 12/01/21 Ordered By: Edwin Cruz Referrals: Nils Gambino DO [Primary Care Provider] - Patient Instructions: Opioid Safety, Pain Management Activity Restrictions/Additional Instructions: Follow-up with the oncology office tomorrow Coding Level of Care Code ED [employer]'S Assistant for Tono Mejia
[2021-12-01 15:37] LABS: Potassium 2.8 mmol/L (3.5-5.1)
[2021-12-01] MEDS: potassium chloride oral liq 20 mEq/15 mL UDC 40 MEQ PO ×2 (16:30→18:17)
[2021-12-01 18:00] VITALS: TEMP 36.6
[2021-12-01 18:17] VITALS: BP 103/65; PULSE 92; RESP 16; O2SAT 94
[2021-12-01 18:47] LABS: Add Urine Microscopic? YES; Bilirubin Urine Neg (Negative); Blood Urine 3+ (Negative); Glucose Urine UA Norm (Normal); Ketones Urine 1+ (Negative); Leukocyte Esterase Urine 2+ (Negative); Nitrate Urine Negative (Negative); Protein Urine 3+ (Negative); Urine Appearance Cloudy (CLEAR); Urine Color Yellow (Yellow); Urobilinogen Urine Norm (Negative); pH Urine 6 (5-7)
[2021-12-01 18:48] LABS: Add Urine Culture? No; Bacteria Urine 4+ /hpf; Squamous Epithelial Cell Urine 15-25 /hpf (0-5); WBC Urine TOO NUMEROUS TO CNT /hpf (0-5)
== END 2021-12-01 20:10 | disposition home or self-care (01) ==
PROVIDERS: Emergency Provider Family Medicine; PCP Family Medicine
DX: D64.81 Anemia due to antineoplastic chemotherapy (principal); C54.1 Malignant neoplasm of endometrium; E86.0 Dehydration; D72.819 Decreased white blood cell count, unspecified; E87.6 Hypokalemia; Z87.891 Personal history of nicotine dependence; Z85.72 Personal history of non-Hodgkin lymphomas; Z85.43 Personal history of malignant neoplasm of ovary
CPT/HCPCS: 80053; 81001; 85025; 96361; 96374; 96375; 99284; J1642; J2405

== ENCOUNTER 2021-12-05 08:00 | Oncology outpatient (recurring) (ONCR) | payer MEDICARE, OTHER, SELFPAY ==
[2021-11-12 09:18] LABS: Basophils % 0.7 %; Eosinophils # 0.4 10^3/uL (0.0-0.8); Eosinophils % 6.9 %; Hematocrit 34.8 % (37.0-47.0); Hemoglobin 10.8 g/dL (11.5-15.3); Lymphocytes # 1.9 10^3/uL (0.8-4.8); Lymphocytes % 34.5 %; Mean Corpuscular Hemoglobin 29.8 pg (28.0-34.0); Mean Corpuscular Volume 95.9 fl (81-99); Monocytes # 0.5 10^3/uL (0.2-0.9); Monocytes % 9.3 %; Neutrophils # 2.54 10^3/uL (1.8-7.7); Neutrophils % 47.3 %; Nucleated Red Blood Cells % 0 %; Platelet Count 174 10^3/cmm (130-400); Red Blood Count 3.63 10^6/uL (4.1-5.3); Red Cell Distribution Width 20.1 % (12.1-15.1); White Blood Count 5.4 10^3/uL (4.0-10.0)
[2021-11-12 09:42] LABS: Alanine Aminotransferase 7 U/L (0-33); Albumin Level 2.9 g/dL (3.5-5.2); Alkaline Phosphatase 82 U/L (35-105); Anion Gap 16.6 (5-19); Aspartate Amino Transferase 17 U/L (0-32); Blood Urea Nitrogen 6 mg/dL (8-23); Calcium 8.1 mg/dL (8.5-10.5); Carbon Dioxide 23 mmol/L (22-29); Chloride 105 mmol/L (98-107); Globulin 2.9 g/dL (1.3-4.6); Glucose 83 mg/dL (65-115); Lactate Dehydrogenase 289 U/L (135-214); Osmolality Calculated 289 mOsm/kg (285-295); Potassium 3.6 mmol/L (3.5-5.1); Sodium 141 mmol/L (136-145); Total Bilirubin 0.5 mg/dL (0.15-1.2); Total Protein 5.8 g/dL (6.6-8.7)
[2021-11-12] MEDS: sodium chloride 0.9% 250 ML IV (09:45)
[2021-11-12 10:22] VITALS: BP 132/74; PULSE 66; RESP 18; TEMP 36.4; O2SAT 98
[2021-11-19] MEDS: sodium chloride 0.9% 1,000 ML 999 ML IV (11:21)
[2021-11-19 11:23] LABS: Basophils # 0.1 10^3/uL (0.0-0.1); Basophils % 0.6 %; Eosinophils # 0.1 10^3/uL (0.0-0.8); Eosinophils % 0.7 %; Hematocrit 36.4 % (37.0-47.0); Hemoglobin 11.3 g/dL (11.5-15.3); Lymphocytes # 1.7 10^3/uL (0.8-4.8); Mean Corpuscular Hemoglobin 29.7 pg (28.0-34.0); Mean Corpuscular Volume 95.8 fl (81-99); Mean Platelet Volume 9.5 fL (7.4-10.4); Monocytes # 0.8 10^3/uL (0.2-0.9); Monocytes % 10.1 %; Neutrophils # 5.51 10^3/uL (1.8-7.7); Neutrophils % 66.9 %; Nucleated Red Blood Cells % 0 %; Platelet Count 141 10^3/cmm (130-400); Red Cell Distribution Width 19.1 % (12.1-15.1); White Blood Count 8.2 10^3/uL (4.0-10.0)
[2021-11-19 11:33] LABS: Alanine Aminotransferase 6 U/L (0-33); Albumin Level 2.9 g/dL (3.5-5.2); Alkaline Phosphatase 84 U/L (35-105); Anion Gap 17.5 (5-19); Aspartate Amino Transferase 12 U/L (0-32); Blood Urea Nitrogen 11 mg/dL (8-23); Calcium 8.3 mg/dL (8.5-10.5); Carbon Dioxide 24 mmol/L (22-29); Chloride 98 mmol/L (98-107); Globulin 3.3 g/dL (1.3-4.6); Glucose 125 mg/dL (65-115); Osmolality Calculated 283 mOsm/kg (285-295); Potassium 3.5 mmol/L (3.5-5.1); Sodium 136 mmol/L (136-145); Total Bilirubin 1.1 mg/dL (0.15-1.2); Total Protein 6.2 g/dL (6.6-8.7)
[2021-11-19 12:50] VITALS: BP 120/70; PULSE 84; TEMP 37; O2SAT 99
[2021-11-21] MEDS: sodium chloride 0.9% 1,000 ML 999 ML IV (10:50)
[2021-11-24 09:23] LABS: Basophils % 0.3 %; Hematocrit 34.4 % (37.0-47.0); Hemoglobin 10.7 g/dL (11.5-15.3); Lymphocytes # 0.8 10^3/uL (0.8-4.8); Lymphocytes % 26.1 %; Mean Corpuscular HGB Conc 31.1 g/dL (30.0-36.0); Mean Corpuscular Hemoglobin 29.6 pg (28.0-34.0); Mean Corpuscular Volume 95.3 fl (81-99); Mean Platelet Volume 9.3 fL (7.4-10.4); Monocytes % 1.2 %; Neutrophils % 71.5 %; Nucleated Red Blood Cells % 0 %; Platelet Count 185 10^3/cmm (130-400); Red Blood Count 3.61 10^6/uL (4.1-5.3); Red Cell Distribution Width 17.6 % (12.1-15.1); White Blood Count 3.2 10^3/uL (4.0-10.0)
[2021-11-24 09:51] LABS: Alanine Aminotransferase < 5 U/L (0-33); Albumin Level 2.9 g/dL (3.5-5.2); Alkaline Phosphatase 80 U/L (35-105); Anion Gap 21.6 (5-19); Aspartate Amino Transferase 12 U/L (0-32); Blood Urea Nitrogen 7 mg/dL (8-23); Calcium 8.3 mg/dL (8.5-10.5); Carbon Dioxide 19 mmol/L (22-29); Chloride 100 mmol/L (98-107); Globulin 3.3 g/dL (1.3-4.6); Glucose 153 mg/dL (65-115); Osmolality Calculated 285 mOsm/kg (285-295); Potassium 3.6 mmol/L (3.5-5.1); Sodium 137 mmol/L (136-145); Total Bilirubin 0.6 mg/dL (0.15-1.2); Total Protein 6.2 g/dL (6.6-8.7)
[2021-11-24] MEDS: sodium chloride 0.9% 250 ML 100 ML IV (10:28)
[2021-11-24] MEDS: famotidine 20 mg/2 mL INJ IVP (10:29)
[2021-11-24] MEDS: diphenhydrAMINE 50 mg/mL SDV 1mL 25 MG IVP (10:29)
[2021-11-24] MEDS: OLANZapine 5 mg TABLET PO (10:29)
[2021-11-24] MEDS: palonosetron 0.25 mg/5 mL SDV IVP (10:30)
[2021-11-24] MEDS: fosaprepitant 150 MG in sodium chloride 0.9% 150 ML 300 MG IV (10:37)
[2021-11-24] MEDS: CARBOplatin 550 MG in sodium chloride 0.9% 500 ML 555 MG IV (14:37)
[2021-11-24 15:46] VITALS: BP 114/75; PULSE 73; TEMP 36.6; O2SAT 96
[2021-12-02] MEDS: sodium chloride 0.9% 500 ML 999 ML IV (10:57)
[2021-12-02 11:03] LABS: Basophils % 0.9 %; Eosinophils # 0.1 10^3/uL (0.0-0.8); Eosinophils % 4.6 %; Hematocrit 30.4 % (37.0-47.0); Hemoglobin 9.6 g/dL (11.5-15.3); Lymphocytes # 0.8 10^3/uL (0.8-4.8); Lymphocytes % 71.6 %; Mean Corpuscular HGB Conc 31.6 g/dL (30.0-36.0); Mean Corpuscular Hemoglobin 29.5 pg (28.0-34.0); Mean Corpuscular Volume 93.5 fl (81-99); Mean Platelet Volume 10.7 fL (7.4-10.4); Monocytes # 0.2 10^3/uL (0.2-0.9); Monocytes % 15.6 %; Neutrophils % 7.3 %; Nucleated Red Blood Cells % 0 %; Platelet Count 55 10^3/cmm (130-400); Red Blood Count 3.25 10^6/uL (4.1-5.3); Red Cell Distribution Width 16.7 % (12.1-15.1); White Blood Count 1.1 10^3/uL (4.0-10.0)
[2021-12-02 11:22] LABS: Neutrophils # 0.08 10^3/uL (1.8-7.7); Slide Review Slide Review Perform
[2021-12-02 11:25] LABS: Alanine Aminotransferase 12 U/L (0-33); Alkaline Phosphatase 59 U/L (35-105); Anion Gap 18.2 (5-19); Aspartate Amino Transferase 19 U/L (0-32); Blood Urea Nitrogen 17 mg/dL (8-23); Calcium 8.4 mg/dL (8.5-10.5); Carbon Dioxide 25 mmol/L (22-29); Chloride 95 mmol/L (98-107); Globulin 3.3 g/dL (1.3-4.6); Glucose 89 mg/dL (65-115); Magnesium 1.4 mg/dL (1.7-2.3); Osmolality Calculated 281 mOsm/kg (285-295); Potassium 3.2 mmol/L (3.5-5.1); Sodium 135 mmol/L (136-145); Total Bilirubin 0.6 mg/dL (0.15-1.2); Total Protein 6.3 g/dL (6.6-8.7)
[2021-12-03 11:02] LABS: Alanine Aminotransferase 12 U/L (0-33); Albumin Level 3.1 g/dL (3.5-5.2); Alkaline Phosphatase 58 U/L (35-105); Aspartate Amino Transferase 16 U/L (0-32); Blood Urea Nitrogen 12 mg/dL (8-23); Calcium 8.4 mg/dL (8.5-10.5); Carbon Dioxide 22 mmol/L (22-29); Chloride 95 mmol/L (98-107); Globulin 3.1 g/dL (1.3-4.6); Glucose 89 mg/dL (65-115); Magnesium 1.2 mg/dL (1.7-2.3); Osmolality Calculated 283 mOsm/kg (285-295); Sodium 137 mmol/L (136-145); Total Bilirubin 0.7 mg/dL (0.15-1.2); Total Protein 6.2 g/dL (6.6-8.7)
[2021-12-03] MEDS: sodium chloride 0.9% 500 ML 999 ML IV (11:16)
[2021-12-03] MEDS: magnesium sulfate premix 2 GM/50 ML PIGGYBACK IV (11:59)
[2021-12-03] MEDS: potassium chloride premix 100 ML 50 MEQ IV (13:02)
[2021-12-03 16:07] VITALS: BP 106/66; PULSE 70; RESP 16; TEMP 36.5; O2SAT 98
[2021-12-04] MEDS: sodium chloride 0.9% 500 ML 999 ML IV (10:52)
[2021-12-04 11:12] LABS: Alanine Aminotransferase 10 U/L (0-33); Alkaline Phosphatase 60 U/L (35-105); Anion Gap 19.8 (5-19); Aspartate Amino Transferase 13 U/L (0-32); Blood Urea Nitrogen 9 mg/dL (8-23); Carbon Dioxide 23 mmol/L (22-29); Chloride 93 mmol/L (98-107); Globulin 2.9 g/dL (1.3-4.6); Glucose 91 mg/dL (65-115); Magnesium 1.4 mg/dL (1.7-2.3); Osmolality Calculated 274 mOsm/kg (285-295); Sodium 133 mmol/L (136-145); Total Bilirubin 0.6 mg/dL (0.15-1.2); Total Protein 5.9 g/dL (6.6-8.7)
[2021-12-04 11:13] LABS: Potassium 2.8 mmol/L (3.5-5.1)
[2021-12-04] MEDS: magnesium sulfate premix 2 GM/50 ML PIGGYBACK IV (11:45)
[2021-12-04] MEDS: potassium chloride premix 100 ML 50 MEQ IV (12:52)
[2021-12-04 15:21] VITALS: BP 96/62; PULSE 89; TEMP 36.8
[2021-12-05 08:07] LABS: Basophils % 0.4 %; Eosinophils % 1.7 %; Hematocrit 26.6 % (37.0-47.0); Hemoglobin 8.4 g/dL (11.5-15.3); Lymphocytes # 1.3 10^3/uL (0.8-4.8); Lymphocytes % 53.8 %; Mean Corpuscular HGB Conc 31.6 g/dL (30.0-36.0); Mean Corpuscular Hemoglobin 29.2 pg (28.0-34.0); Mean Corpuscular Volume 92.4 fl (81-99); Mean Platelet Volume 10.1 fL (7.4-10.4); Monocytes # 0.3 10^3/uL (0.2-0.9); Monocytes % 13.6 %; Neutrophils % 29.7 %; Nucleated Red Blood Cells % 0 %; Platelet Count 46 10^3/cmm (130-400); Red Blood Count 2.88 10^6/uL (4.1-5.3); Red Cell Distribution Width 16.1 % (12.1-15.1); White Blood Count 2.4 10^3/uL (4.0-10.0)
[2021-12-05] MEDS: sodium chloride 0.9% 500 ML 999 ML IV (08:13)
[2021-12-05 08:32] LABS: Alanine Aminotransferase 11 U/L (0-33); Albumin Level 2.8 g/dL (3.5-5.2); Alkaline Phosphatase 58 U/L (35-105); Anion Gap 18.6 (5-19); Aspartate Amino Transferase 11 U/L (0-32); Blood Urea Nitrogen 9 mg/dL (8-23); Calcium 8.3 mg/dL (8.5-10.5); Carbon Dioxide 23 mmol/L (22-29); Chloride 93 mmol/L (98-107); Globulin 2.9 g/dL (1.3-4.6); Glucose 82 mg/dL (65-115); Magnesium 1.7 mg/dL (1.7-2.3); Osmolality Calculated 272 mOsm/kg (285-295); Sodium 132 mmol/L (136-145); Total Bilirubin 0.5 mg/dL (0.15-1.2); Total Protein 5.7 g/dL (6.6-8.7)
[2021-12-05 08:36] LABS: Slide Review Slide Review Perform
[2021-12-05 08:43] LABS: Potassium 2.6 mmol/L (3.5-5.1)
[2021-12-05] MEDS: sodium chloride 0.9% 250 ML IV (09:41)
[2021-12-05] MEDS: potassium chloride premix 100 ML 50 MEQ IV (09:41)
[2021-12-05 10:55] VITALS: BP 111/64; PULSE 74; RESP 18; TEMP 36.4; O2SAT 98
== END 2021-12-05 23:59 | disposition home or self-care (01) ==
PROVIDERS: PCP Family Medicine; Visit Provider Internal Medicine Hematology & Oncology
DX: C56.9 Malignant neoplasm of unspecified ovary
CPT/HCPCS: 36415; 80053; 83615; 83735; 85025; 96365; 96366; 96367; 96375; 96413; 96415; 96417; 99214; J1100; J1200; J1453; J2469; J3475; J3480; J3490; J7030; J7040; J7050; J9045; J9267

== ENCOUNTER 2021-12-06 12:53 | Emergency (ER) | payer MEDICARE, OTHER, SELFPAY ==
[2021-12-06 12:58] VITALS: BP 102/66; PULSE 93; RESP 16; TEMP 36.2; O2SAT 95
--- NOTE | 2021-12-06 14:51 | ED_ITS ---
HPI - Recheck/Abnormal Lab/Rx General: Chief Complaint: Recheck/Abnormal Lab/Rx Stated Complaint: lab work for low Magnesium and potissimum Time Seen by Provider: 12/06/21 14:05 Source: patient Mode of arrival: ambulatory History of Present Illness: 68-year-old female presents to the emergency room because of hypokalemia and hyponatremia hypomagnesemia. She has no specific complaints or problems at this time. She not hurting. She has a history of EndometrialCancer. She has not been tolerating her chemotherapy well. directed here for follow-up by her oncologist. MD complaint: abnormal lab Initial visit (ago): day(s) Symptoms since prior visit: no new symptoms Associated symptoms: malaise and nausea Review of Systems Const: Reports: fatigue and malaise; Denies: fever(s), chills, body aches or change in appetite ENMT: Denies: throat pain, ear or mastoid pain, nasal discharge or nasal congestion Card: Denies: chest pain, edema, dyspnea on exertion or orthopnea Resp: Reports: dyspnea; Denies: productive cough or non-productive cough GI: Reports: abdominal pain and nausea; Denies: vomiting, hematemesis, coffee ground emesis, diarrhea, constipation, bloating, hematochezia or melena : Denies: flank pain, difficulty voiding, dysuria, urinary frequency or urinary urgency Skin/Breast: Denies: rash or pruritus PFSH ED PFSH: Medical History Acquired immunocompromised state Bilateral hydronephrosis Diffuse large B cell lymphoma Diagnosed 2018 Endometrial carcinoma On antineoplastic chemotherapy Ovarian cancer Followed in [place] Physical deconditioning Port-A-Cath in place Presence of IVC filter Right leg DVT (06/2021) GSV extending to CFV Status post insertion of nerve stimulator Vancomycin resistant Enterococcus infection Surgical History H/O cataract extraction bilateral eyes H/O tubal ligation History of colon resection History of left knee replacement History of removal of Port-a-Cath History of total right knee replacement History of ureter stent Bilateral, due to obstruction related to malignancy S/P cholecystectomy Status post hysteroscopy 06/11/2021- hysteroscopy with D&C via myosure performed by Dr. Victoria at [facility] [place] Family History Mother , at age Hypertension Cancer pancreatic Father , at age 72 Colon cancer 72 Denies family history of Ovarian cancer Diabetes Clotting disorder Heart disease Hyperlipidemia Breast cancer Anesthesia complication Bleeding disorder Uterine cancer Thyroid condition Stroke Social History Smoking and tobacco status: former smoker (smoked x 15 years) Second hand smoke exposure: No Alcohol intake: never Adopted: No Caregiver/support person: Yes Lives independently: Yes Household members: significant other Housing: House Marital status: / service: No Current occupational status: retired Current occupational exposures/hazards: No Pets and animals: Yes History of recent travel: No Leisure activites: exercise Sexually active: No Current gender identity: Female Cheli/Catholic: Sikhism Physical Exam Const: GENERAL APPEARANCE: cooperative and comfortable ORIENTATION/CONSCIOUSNESS: Yes awake, Yes oriented to person, Yes oriented to place and Yes oriented to time HENMT: COMMON NORMALS: normocephalic, atraumatic and hearing grossly normal bilaterally HEAD & SCALP: normocephalic and atraumatic Resp: COMMON NORMALS: normal respiratory effort, No retractions, No use of accessory muscles and clear to auscultation bilaterally AUSCULTATION: clear to auscultation bilaterally Cardio: COMMON NORMALS: regular rate, regular rhythm and No murmurs present (Cardio) RATE: regular rate RHYTHM: regular rhythm GI: COMMON NORMALS: Soft to palpation and No hepatosplenomegaly present AUSCULTATION: Yes normoactive bowel sounds PALPATION: Yes Soft to palpation, No Tenderness to palpation present (GI), No Guarding due to palpation present (GI) and Yes No hepatosplenomegaly present Extremity: COMMON NORMALS: normal to inspection, capillary refill normal, no clubbing, cyanosis or edema, no calf tenderness and no pedal edema Neuro: SENSORIUM/ORIENTATION: Yes oriented to person, Yes oriented to place and Yes oriented to time Skin: COMMON NORMALS: no rashes or lesions noted GENERAL SKIN EXAM: no rashes or lesions noted Course Vital Signs: Vital signs: Vital Signs Temperature 97.1 F L 12/06/21 12:58 Pulse Rate 80 12/06/21 16:28 Respiratory Rate 16 12/06/21 12:58 Blood Pressure 120/60 12/06/21 16:28 Pulse Oximetry 94 12/06/21 16:28 Oxygen Delivery Me thod 12/06/21 15:00 MDM - Recheck/Abnormal Lab/Rx Medical Decision Making Labs reviewed. Potassium low patient given supplement also supplemented her magnesium. Discussed with the patient to follow-up with her primary care doctor or oncologist within the next week. Was also given fluids while she was in the emergency room. She has no other acute process and was discharged home. Medical Records I reviewed the patient's medical records. Lab Data I reviewed the patient's lab results. : 12/06/21 15:03 12/06/21 15:03 Laboratory Results WBC 3.2 10^3/uL (4.0-10.0) L 12/06/21 15:03 RBC 3.06 10^6/uL (4.1-5.3) L 12/06/21 15:03 Hgb 9.1 g/dL (11.5-15.3) L 12/06/21 15:03 Hct 28.8 % (37.0-47.0) L 12/06/21 15:03 MCV 94.1 fl (81-99) 12/06/21 15:03 MCH 29.7 pg (28.0-34.0) 12/06/21 15:03 MCHC 31.6 g/dL (30.0-36.0) 12/06/21 15:03 RDW 16.2 % (12.1-15.1) H 12/06/21 15:03 Plt Count 46 10^3/cmm (130-400) L 12/06/21 15:03 MPV 10.0 fL (7.4-10.4) 12/06/21 15:03 Neut % (Auto) 35.0 % 12/06/21 15:03 Lymph % (Auto) 49.8 % 12/06/21 15:03 [place] % (Auto) 11.7 % 12/06/21 15:03 Eos % (Auto) 1.3 % 12/06/21 15:03 Baso % (Auto) 0.6 % 12/06/21 15:03 Neut # (Auto) 1.10 10^3/uL (1.8-7.7) L 12/06/21 15:03 Lymph # (Auto) 1.6 10^3/uL (0.8-4.8) 12/06/21 15:03 [place] # (Auto) 0.4 10^3/uL (0.2-0.9) 12/06/21 15:03 Eos # (Auto) 0.0 10^3/uL (0.0-0.8) 12/06/21 15:03 Baso # (Auto) 0.0 10^3/uL (0.0-0.1) 12/06/21 15:03 Nucleated RBC % (auto) 0 % 12/06/21 15:03 Nucleated RBCs # 0.0 /100WBC 12/06/21 15:03 Sodium 137 mmol/L (136-145) 12/06/21 15:03 Potassium 2.9 mmol/L (3.5-5.1) L 12/06/21 15:03 Chloride 94 mmol/L (98-107) L 12/06/21 15:03 Carbon Dioxide 25 mmol/L (22-29) 12/06/21 15:03 Anion Gap 20.9 (5-19) H 12/06/21 15:03 BUN 7 mg/dL (8-23) L 12/06/21 15:03 Creatinine 0.8 mg/dL (0.5-0.9) 12/06/21 15:03 GFR Calculation Not Reportable 12/06/21 15:03 Glucose 74 mg/dL (65-115) 12/06/21 15:03 Calculated Osmolality 281 mOsm/kg (285-295) L 12/06/21 15:03 Calcium 8.7 mg/dL (8.5-10.5) 12/06/21 15:03 Magnesium 1.6 mg/dL (1.7-2.3) L 12/06/21 15:03 Total Bilirubin 0.5 mg/dL (0.15-1.2) 12/06/21 15:03 AST 19 U/L (0-32) 12/06/21 15:03 ALT 12 U/L (0-33) 12/06/21 15:03 Alkaline Phosphatase 66 U/L (35-105) 12/06/21 15:03 Total Protein 6.2 g/dL (6.6-8.7) L 12/06/21 15:03 Albumin 2.9 g/dL (3.5-5.2) L 12/06/21 15:03 Globulin 3.3 g/dL (1.3-4.6) 12/06/21 15:03 Discharge Plan Discharge Patient Disposition: Home Clinical Impression: Hypomagnesemia, Hypokalemia Condition: Stable Prescriptions: New magnesium oxide 400 mg (241.3 mg magnesium) tablet 400 mg PO BID Qty: 60 0RF potassium chloride 20 mEq tablet,ER particles/crystals 40 meq PO BID Qty: 120 0RF No Action ciprofloxacin HCl 500 mg tablet 500 mg PO BID Qty: 14 1RF dexamethasone 4 mg tablet 4 mg PO .COMPLEX Qty: 10 6RF Rx Instructions: 4 mg orally Take 5 tabs - 6 and 12 hours prior to treatment; potassium chloride 20 mEq tablet extended release 20 meq PO BID 7 Days Qty: 14 0RF loratadine [Claritin] 10 mg Tablet 10 mg PO DAILY PRN (Reason: Allergy Symptoms) hydrocodone-acetaminophen 5-325 mg Tablet 1 tab PO Q4H PRN (Reason: Pain) ondansetron 4 mg tablet,disintegrating 4 mg PO Q6H PRN (Reason: nausea and vomiting) Qty: 14 0RF hydroxyzine HCl 25 mg Tablet 25 mg PO DAILY PRN (Reason: Itching) duloxetine 30 mg Capsule,Delayed Release(Dr/Ec) 30 mg PO BEDTIME Ativan 0.5 mg Tablet 0.5 mg PO .BEFORE CHEMO paclitaxel 6 mg/mL Concentrate See Rx Instructions .ROUTE .COMPLEX Rx Instructions: 390.25 mg every 3 weeks (has had 3 cycles per [place] last dose on 09/11/21) Aloxi 0.25 mg/5 mL Solution 0.25 mg IV .BEFORE CHEMO carboplatin 10 mg/mL Solution See Rx Instructions .ROUTE .COMPLEX Rx Instructions: 615.78 mg every 3 weeks (has had 3 cycles per [place] last dose on 09/11/21) Emend (fosaprepitant) 150 mg Recon Soln 150 mg IV .BEFORE CHEMO promethazine 25 mg tablet 25 mg PO Q6H PRN (Reason: nausea and vomiting) Qty: 20 0RF cephalexin 250 mg capsule 250 mg PO BID 5 Days Qty: 10 0RF Discharge Orders: Discharge ED (Routine); Ordered 10/01/22 Ordered By: Edwin Cruz Referrals: Nils Gambino, [Primary Care Provider] - Discharge Diet: Usual diet Discharge Activity: Increase activity as tolerated Patient Instructions: Opioid Safety, Pain Management Activity Restrictions/Additional Instructions: Follow-up with your primary care doctor or oncologist next week in the office to recheck your potassium and magnesium levels Coding Level of Care Code ED Lead Man Over All Dies In [employer] for Chg Fwd Exam Detailed
[2021-12-06 15:00] VITALS: BP 122/66; PULSE 80; O2SAT 94
[2021-12-06 15:35] LABS: Basophils % 0.6 %; Eosinophils % 1.3 %; Hematocrit 28.8 % (37.0-47.0); Hemoglobin 9.1 g/dL (11.5-15.3); Lymphocytes # 1.6 10^3/uL (0.8-4.8); Lymphocytes % 49.8 %; Mean Corpuscular HGB Conc 31.6 g/dL (30.0-36.0); Mean Corpuscular Hemoglobin 29.7 pg (28.0-34.0); Mean Corpuscular Volume 94.1 fl (81-99); Monocytes # 0.4 10^3/uL (0.2-0.9); Monocytes % 11.7 %; Nucleated Red Blood Cells % 0 %; Platelet Count 46 10^3/cmm (130-400); Red Blood Count 3.06 10^6/uL (4.1-5.3); Red Cell Distribution Width 16.2 % (12.1-15.1); White Blood Count 3.2 10^3/uL (4.0-10.0)
[2021-12-06 15:38] LABS: Alanine Aminotransferase 12 U/L (0-33); Albumin Level 2.9 g/dL (3.5-5.2); Alkaline Phosphatase 66 U/L (35-105); Anion Gap 20.9 (5-19); Aspartate Amino Transferase 19 U/L (0-32); Blood Urea Nitrogen 7 mg/dL (8-23); Calcium 8.7 mg/dL (8.5-10.5); Carbon Dioxide 25 mmol/L (22-29); Chloride 94 mmol/L (98-107); Globulin 3.3 g/dL (1.3-4.6); Glucose 74 mg/dL (65-115); Magnesium 1.6 mg/dL (1.7-2.3); Osmolality Calculated 281 mOsm/kg (285-295); Sodium 137 mmol/L (136-145); Total Bilirubin 0.5 mg/dL (0.15-1.2); Total Protein 6.2 g/dL (6.6-8.7)
[2021-12-06 15:46] LABS: Potassium 2.9 mmol/L (3.5-5.1)
[2021-12-06] MEDS: magnesium oxide 400 mg tablet 800 MG PO (16:17)
[2021-12-06] MEDS: potassium chloride ER 20 mEq Tablet 60 MEQ PO (16:27)
[2021-12-06 16:28] VITALS: BP 120/60; PULSE 80; O2SAT 94
== END 2021-12-06 16:36 | disposition home or self-care (01) ==
PROVIDERS: Emergency Provider Family Medicine; PCP Family Medicine
DX: E87.6 Hypokalemia (principal); E83.42 Hypomagnesemia; Z87.891 Personal history of nicotine dependence; Z85.72 Personal history of non-Hodgkin lymphomas; Z85.43 Personal history of malignant neoplasm of ovary
CPT/HCPCS: 80053; 83735; 85025; 99283

== ENCOUNTER 2021-12-20 12:54 | Emergency (ER) | payer MEDICARE, OTHER, SELFPAY ==
[2021-12-20 13:05] VITALS: BP 86/63; PULSE 115; TEMP 36; O2SAT 93; BMI 32.8
--- NOTE | 2021-12-20 14:40 | W.ED.GENADLT ---
HPI - General Adult General: Chief complaint: General Medical Stated complaint: Possible dehydration Time Seen by Provider: 12/20/21 14:37 History of Present Illness: 76-year-old female comes in today for complaints of nausea and vomiting and inability to hold fluids down. Patient had chemotherapy on Wednesday which aggravates her nausea and vomiting. Patient was feeling lightheaded and felt she might be needed more fluids. Patient was able to hold down some food earlier. Patient appears chronically ill. Patient appears nontoxic. Patient responds appropriate questions. Associated symptoms: Reports nausea and vomiting; Deny chest pain or dyspnea Review of Systems General: Reports: 10 or more systems reviewed and unremarkable except in HPI and below Card: Denies: chest pain Resp: Denies: dyspnea GI: Reports: nausea and vomiting PFSH ED PFSH: Medical History Acquired immunocompromised state Bilateral hydronephrosis Diffuse large B cell lymphoma Diagnosed 2018 Endometrial carcinoma On antineoplastic chemotherapy Ovarian cancer Followed in [place] Physical deconditioning Port-A-Cath in place Presence of IVC filter Right leg DVT (06/2021) GSV extending to CFV Status post insertion of nerve stimulator Vancomycin resistant Enterococcus infection Surgical History H/O cataract extraction bilateral eyes H/O tubal ligation History of colon resection History of left knee replacement History of removal of Port-a-Cath History of total right knee replacement History of ureter stent Bilateral, due to obstruction related to malignancy S/P cholecystectomy Status post hysteroscopy 06/11/2021- hysteroscopy with D&C via myosure performed by Dr. Victoria at [facility] Family History Mother , at age Hypertension Cancer pancreatic Father , at age 72 Colon cancer 72 Denies family history of Ovarian cancer Diabetes Clotting disorder Heart disease Hyperlipidemia Breast cancer Anesthesia complication Bleeding disorder Uterine cancer Thyroid condition Stroke Social History Smoking and tobacco status: former smoker (smoked x 15 years) Second hand smoke exposure: No Alcohol intake: never Adopted: No Caregiver/support person: Yes Lives independently: Yes Household members: significant other Housing: House Marital status: / service: No Current occupational status: retired Current occupational exposures/hazards: No Pets and animals: Yes History of recent travel: No Leisure activites: exercise Sexually active: No Current gender identity: Female Cheli/Presybeterian: Worship Physical Exam Const: COMMON NORMALS: alert HENMT: COMMON NORMALS: normocephalic HEAD & SCALP: normocephalic Neck/C-Spine: COMMON NORMALS: full ROM Resp: COMMON NORMALS: normal respiratory effort and clear to auscultation bilaterally AUSCULTATION: clear to auscultation bilaterally Cardio: COMMON NORMALS: regular rate and regular rhythm RATE: regular rate RHYTHM: regular rhythm Extremity: COMMON NORMALS: no pedal edema (Mild lower extremity edema) Neuro: SENSORIUM/ORIENTATION: Yes alert Skin: COMMON NORMALS: turgor normal GENERAL SKIN EXAM: turgor normal Course Vital Signs: Vital signs: Vital Signs Temperature 96.8 F L 12/20/21 13:05 Pulse Rate 94 12/20/21 16:19 Respiratory Rate 16 12/20/21 16:19 Blood Pressure 117/85 12/20/21 16:19 Pulse Oximetry 94 12/20/21 16:19 Oxygen Delivery Me thod 12/20/21 16:19 MDM - General Adult Medical Decision Making 76-year-old female comes in today with complaints of nausea and vomiting at home. Patient reports that this happens occasionally after getting chemotherapy. Patient had some fluids prior to Wednesday for the nausea and vomiting and thought she would do well but today she started feeling ill to her stomach and was able to hold down food but did have difficulty holding down fluids. Patient appears nontoxic. Abdomen soft nontender. Skin is warm and dry. Vital signs note some mild low blood pressure at the 86 systolic but then repeated at 117 systolic. Differential diagnosis includes but not limited to dehydration, hypokalemia, hypomagnesia, urinary tract infection, adverse effect of chemotherapy. Patient was given 500 mL of fluid. Patient reported improvement of symptoms. CBC noted some anemia which was stable. CMP was unremarkable. Magnesium was normal. Urinalysis showed a large amount of white blood cells and positive nitrates. Patient was given 1 g of ceftriaxone for UTI and will be continued on cephalexin 250 twice a day for 5 days. Encourage fluids and continue routine care. Patient felt better and was discharged home. Lab Data : 12/20/21 14:49 12/20/21 14:49 Laboratory Results WBC 3.1 10^3/uL (4.0-10.0) L 12/20/21 14:49 RBC 2.84 10^6/uL (4.1-5.3) L 12/20/21 14:49 Hgb 8.4 g/dL (11.5-15.3) L 12/20/21 14:49 Hct 27.2 % (37.0-47.0) L 12/20/21 14:49 MCV 95.8 fl (81-99) 12/20/21 14:49 MCH 29.6 pg (28.0-34.0) 12/20/21 14:49 MCHC 30.9 g/dL (30.0-36.0) 12/20/21 14:49 RDW 17.0 % (12.1-15.1) H 12/20/21 14:49 Plt Count 151 10^3/cmm (130-400) 12/20/21 14:49 MPV 10.1 fL (7.4-10.4) 12/20/21 14:49 Neut % (Auto) 56.6 % 12/20/21 14:49 Lymph % (Auto) 34.4 % 12/20/21 14:49 [place] % (Auto) 7.4 % 12/20/21 14:49 Eos % (Auto) 0.0 % 12/20/21 14:49 Baso % (Auto) 0.3 % 12/20/21 14:49 Neut # (Auto) 1.76 10^3/uL (1.8-7.7) L 12/20/21 14:49 Lymph # (Auto) 1.1 10^3/uL (0.8-4.8) 12/20/21 14:49 [place] # (Auto) 0.2 10^3/uL (0.2-0.9) 12/20/21 14:49 Eos # (Auto) 0.0 10^3/uL (0.0-0.8) 12/20/21 14:49 Baso # (Auto) 0.0 10^3/uL (0.0-0.1) 12/20/21 14:49 Nucleated RBC % (auto) 0.6 % 12/20/21 14:49 Nucleated RBCs # 0.0 /100WBC 12/20/21 14:49 Sodium 134 mmol/L (136-145) L 12/20/21 14:49 Potassium 4.3 mmol/L (3.5-5.1) 12/20/21 14:49 Chloride 97 mmol/L (98-107) L 12/20/21 14:49 Carbon Dioxide 23 mmol/L (22-29) 12/20/21 14:49 Anion Gap 18.3 (5-19) 12/20/21 14:49 BUN 14 mg/dL (8-23) 12/20/21 14:49 Creatinine 0.9 mg/dL (0.5-0.9) 12/20/21 14:49 GFR Calculation Not Reportable 12/20/21 14:49 Glucose 117 mg/dL (65-115) H 12/20/21 14:49 Calculated Osmolality 280 mOsm/kg (285-295) L 12/20/21 14:49 Calcium 8.5 mg/dL (8.5-10.5) 12/20/21 14:49 Magnesium 1.7 mg/dL (1.7-2.3) 12/20/21 14:49 Total Bilirubin 0.7 mg/dL (0.15-1.2) 12/20/21 14:49 AST 8 U/L (0-32) 12/20/21 14:49 ALT < 5 U/L (0-33) 12/20/21 14:49 Alkaline Phosphatase 67 U/L (35-105) 12/20/21 14:49 Total Protein 6.4 g/dL (6.6-8.7) L 12/20/21 14:49 Albumin 3.1 g/dL (3.5-5.2) L 12/20/21 14:49 Globulin 3.3 g/dL (1.3-4.6) 12/20/21 14:49 Lipase 9 U/L (13-60) L 12/20/21 14:49 Urine Color Dark yellow (Yellow) 12/20/21 15:38 Urine Appearance Cloudy (CLEAR) A 12/20/21 15:38 Urine pH 6 (5-7) 12/20/21 15:38 Ur Specific [place] 1.010 (1.005-1.030) 12/20/21 15:38 Urine Protein 1+ (Negative) H 12/20/21 15:38 Urine Glucose (UA) Norm (Normal) 12/20/21 15:38 Urine Ketones Negative (Negative) 12/20/21 15:38 Urine Blood 2+ (Negative) H 12/20/21 15:38 Urine Nitrate Positive (Negative) H 12/20/21 15:38 Urine Bilirubin Neg (Negative) 12/20/21 15:38 Urine Urobilinogen Norm mg/dL (Negative) 12/20/21 15:38 Ur Leukocyte Esterase 2+ (Negative) H 12/20/21 15:38 Urine RBC 5-10 /hpf (0-2) H 12/20/21 15:38 Urine WBC Too numerous to cnt /hpf (0-5) H 12/20/21 15:38 Ur Squamous Epith Cells 5-10 /hpf (0-5) H 12/20/21 15:38 Amorphous Sediment Not Reportable 12/20/21 15:38 Urine Bacteria 3+ /hpf (NONE) H 12/20/21 15:38 Discharge Plan Discharge Patient Disposition: Home Clinical Impression: UTI (urinary tract infection) due to Enterococcus Vomiting Qualifiers: Vomiting type: unspecified Nausea presence: with nausea Qualified Code(s): R11.2 - Nausea with vomiting, unspecified Condition: Stable Prescriptions: New cephalexin 250 mg capsule 250 mg PO BID 5 Days Qty: 10 0RF No Action ciprofloxacin HCl 500 mg tablet 500 mg PO BID Qty: 14 1RF dexamethasone 4 mg tablet 4 mg PO .COMPLEX Qty: 10 6RF Rx Instructions: 4 mg orally Take 5 tabs - 6 and 12 hours prior to treatment; potassium chloride 20 mEq tablet extended release 20 meq PO BID 7 Days Qty: 14 0RF loratadine [Claritin] 10 mg Tablet 10 mg PO DAILY PRN (Reason: Allergy Symptoms) hydrocodone-acetaminophen 5-325 mg Tablet 1 tab PO Q4H PRN (Reason: Pain) ondansetron 4 mg tablet,disintegrating 4 mg PO Q6H PRN (Reason: nausea and vomiting) Qty: 14 0RF hydroxyzine HCl 25 mg Tablet 25 mg PO DAILY PRN (Reason: Itching) magnesium oxide 400 mg (241.3 mg magnesium) tablet 400 mg PO BID Qty: 60 0RF potassium chloride 20 mEq tablet,ER particles/crystals 40 meq PO BID Qty: 120 0RF duloxetine 30 mg Capsule,Delayed Release(Dr/Ec) 30 mg PO BEDTIME Ativan 0.5 mg Tablet 0.5 mg PO .BEFORE CHEMO paclitaxel 6 mg/mL Concentrate See Rx Instructions .ROUTE .COMPLEX Rx Instructions: 390.25 mg every 3 weeks (has had 3 cycles per [place] last dose on 09/11/21) Aloxi 0.25 mg/5 mL Solution 0.25 mg IV .BEFORE CHEMO carboplatin 10 mg/mL Solution See Rx Instructions .ROUTE .COMPLEX Rx Instructions: 615.78 mg every 3 weeks (has had 3 cycles per [place] last dose on 09/11/21) Emend (fosaprepitant) 150 mg Recon Soln 150 mg IV .BEFORE CHEMO promethazine 25 mg tablet 25 mg PO Q6H PRN (Reason: nausea and vomiting) Qty: 20 0RF Discharge Orders: Discharge ED (Routine); Ordered 12/20/21 Ordered By: Korey Fenton Referrals: Nils Gambino, [Primary Care Provider] - Discharge Diet: Usual diet Discharge Activity: Increase activity as tolerated Patient Instructions: Dehydration (ED) Activity Restrictions/Additional Instructions: Continue drinking frequent sips of water to maintain hydration. Use home medications for nausea and vomiting. Take antibiotic cephalexin 250 mg twice a day for the next 5 days. Follow-up with primary care in 5 to 7 days for recheck of urine. Return to ER for high fever greater than 100.4, chest pain, shortness of breath, or new concerns. Coding Level of Care Code ED Business Analyst Consultant for Tono Fwdwaine Exam Detailed
[2021-12-20] MEDS: sodium chloride 0.9% 500 ML 999 ML IV (14:56)
[2021-12-20 15:15] LABS: Basophils % 0.3 %; Hematocrit 27.2 % (37.0-47.0); Hemoglobin 8.4 g/dL (11.5-15.3); Lymphocytes # 1.1 10^3/uL (0.8-4.8); Lymphocytes % 34.4 %; Mean Corpuscular HGB Conc 30.9 g/dL (30.0-36.0); Mean Corpuscular Hemoglobin 29.6 pg (28.0-34.0); Mean Corpuscular Volume 95.8 fl (81-99); Mean Platelet Volume 10.1 fL (7.4-10.4); Monocytes # 0.2 10^3/uL (0.2-0.9); Monocytes % 7.4 %; Neutrophils # 1.76 10^3/uL (1.8-7.7); Neutrophils % 56.6 %; Nucleated Red Blood Cells % 0.6 %; Platelet Count 151 10^3/cmm (130-400); Red Blood Count 2.84 10^6/uL (4.1-5.3); White Blood Count 3.1 10^3/uL (4.0-10.0)
[2021-12-20 15:43] VITALS: BP 113/68; PULSE 105; RESP 16; O2SAT 94
[2021-12-20 15:48] LABS: Alanine Aminotransferase < 5 U/L (0-33); Albumin Level 3.1 g/dL (3.5-5.2); Alkaline Phosphatase 67 U/L (35-105); Anion Gap 18.3 (5-19); Aspartate Amino Transferase 8 U/L (0-32); Blood Urea Nitrogen 14 mg/dL (8-23); Calcium 8.5 mg/dL (8.5-10.5); Carbon Dioxide 23 mmol/L (22-29); Chloride 97 mmol/L (98-107); Globulin 3.3 g/dL (1.3-4.6); Glucose 117 mg/dL (65-115); Lipase 9 U/L (13-60); Magnesium 1.7 mg/dL (1.7-2.3); Osmolality Calculated 280 mOsm/kg (285-295); Potassium 4.3 mmol/L (3.5-5.1); Sodium 134 mmol/L (136-145); Total Bilirubin 0.7 mg/dL (0.15-1.2); Total Protein 6.4 g/dL (6.6-8.7)
[2021-12-20 16:19] VITALS: BP 117/85; PULSE 94; RESP 16; O2SAT 94
[2021-12-20 16:26] LABS: Urine Appearance Cloudy (CLEAR); Urine Color Dark Yellow (Yellow)
[2021-12-20 16:27] LABS: Add Urine Microscopic? YES; Bilirubin Urine Neg (Negative); Blood Urine 2+ (Negative); Glucose Urine UA Norm (Normal); Ketones Urine Negative (Negative); Leukocyte Esterase Urine 2+ (Negative); Nitrate Urine Positive (Negative); Protein Urine 1+ (Negative); Urobilinogen Urine Norm (Negative); pH Urine 6 (5-7)
[2021-12-20 16:28] LABS: WBC Urine TOO NUMEROUS TO CNT /hpf (0-5)
[2021-12-20 16:29] LABS: Add Urine Culture? Yes; Bacteria Urine 3+ /hpf
[2021-12-20] MEDS: cefTRIAXone 1,000 MG in sodium chloride 0.9% (plus) 50 ML 100 MG IV (16:34)
[2021-12-20 17:14] VITALS: BP 122/72; PULSE 87; O2SAT 100
== END 2021-12-20 17:17 | disposition home or self-care (01) ==
PROVIDERS: Emergency Medicine; Emergency Provider Nurse Practitioner Family; PCP Family Medicine
DX: N39.0 Urinary tract infection, site not specified (principal); B95.2 Enterococcus as the cause of diseases classified elsewhere; R11.2 Nausea with vomiting, unspecified; Z85.43 Personal history of malignant neoplasm of ovary; Z85.72 Personal history of non-Hodgkin lymphomas; Z87.891 Personal history of nicotine dependence
CPT/HCPCS: 80053; 81001; 83690; 83735; 85025; 87077; 87086; 87186; 96361; 96365; 99284; J0696; J7040

== ENCOUNTER 2021-12-28 01:36 | Inpatient (IN) | payer MEDICARE, OTHER, SELFPAY ==
[2021-12-28] VITALS (169 sets, daily range): BP systolic 62–135; BP diastolic 44–83; PULSE 77–132; RESP 10–26; TEMP 36–36.9; O2SAT 64–100; BMI 8523.9; BMI 33.2
--- NOTE | 2021-12-28 01:56 | CTR_ITS ---
PROCEDURE INFORMATION: Exam: CT Head Without Contrast Exam date and time: 12/28/2021 2:52 AM Age: 76 years old Clinical indication: Patient HX: General weakness with hypotension. History of uterine cancer. ; Additional info: Altered mental status hypotension TECHNIQUE: Imaging protocol: Computed tomography of the head without contrast. Radiation optimization: All CT scans at this facility use at least one of these dose optimization techniques: automated exposure control; mA and/or kV adjustment per patient size (includes targeted exams where dose is matched to clinical indication); or iterative reconstruction. COMPARISON: CT head wo con* [id number] 09/15/2021 12:00 PM RADIATION DOSE METRICS: Total DLP (mGy-cm): 1035.38 FINDINGS: Brain: No acute hemorrhage identified. No large territorial areas of hypoattenuation concerning for ischemic infarct identified. No intracranial mass effect. Mild diffuse cerebral atrophy consistent with patient's age. Cerebral ventricles: The ventricles are within normal limits. Paranasal sinuses: Dense material noted within the sphenoid sinus with surrounding bony changes likely related to chronic sinusitis, similar to prior exam. . Mastoid air cells: The visualized mastoid air cells are well aerated. Bones/joints: No cranial fracture identified. Soft tissues: Unremarkable. CT/CT head wo con* [id number] IMPRESSION: 1. No acute intracranial abnormality identified. 2. Chronic sinusitis.
--- NOTE | 2021-12-28 01:56 | XRR_ITS ---
PROCEDURE INFORMATION: Exam: XR Chest Exam date and time: 12/28/2021 2:03 AM Age: 76 years old Clinical indication: Prior surgery; Surgery type: Chest port. Gb. Spinal stimulator. Aortic endograft. Patient HX: General weakness with hypotension. ; Additional info: Altered mental status hypotension TECHNIQUE: Imaging protocol: Radiologic exam of the chest. Views: 1 view. COMPARISON: CR XR chest 1V portable [id number] 11/05/2021 9:57 AM FINDINGS: Tubes, catheters and devices: Right-sided central venous chest port again noted. Thoracic spinal lead wires again noted. Lungs: The lung parenchyma is clear. Pleural spaces: No pneumothorax. No pleural effusion. Heart/Mediastinum: The cardiomediastinal silhouette is within normal limits. Vasculature: Tortuous thoracic aorta similar to prior exam. Bones/joints: Degenerative changes in the shoulder joints. XR/XR chest 1V portable [id number] IMPRESSION: No acute cardiopulmonary abnormality identified.
--- NOTE | 2021-12-28 01:57 | ECG_ITS ---
[facility] Test Date: 2021-12-28 Pat Name: Francie Levine Department: Room: Gender: Female Webbing Supervisor: : 1945 Requested By: Russ Flores Order Number: [id number] Diana MD: Julia Castellon M.D. Measurements Intervals [place] Rate: 128 P: VA: QRS: -34 QRSD: 86 T: 107 QT: 307 QTc: 448 Interpretive Statements SINUS TACHYCARDIA LEFT AXIS DEVIATION [QRS AXIS < -30] SEPTAL MYOCARDIAL INFARCTION , PROBABLY OLD [40+ ms Q WAVE IN V1/V2] MODERATE T-WAVE ABNORMALITY, CONSIDER LATERAL ISCHEMIA Compared to ECG 10/18/2021 13:08:27 Sinus rhythm no longer present Myocardial infarct finding still present T-wave abnormality still present Possible ischemia still present Electronically Signed On 12-29-2021 22:59:17 CDT by Julia Castellon M.D. [email or web address] Inclawrence [facility] hospitalHuafeng Biotechkettering health – [facility].[employer]/store/NU/[id number] f
[2021-12-28] MEDS: ondansetron 2 mg/ML SDV 2 mL 4 MG IVP ×4 (02:04→22:09)
--- NOTE | 2021-12-28 02:04 | ED_ITS ---
HPI - Weakness General: Chief complaint: Weakness Stated complaint: WEAKNESS Time Seen by Provider: 12/28/21 01:56 Source: patient History of Present Illness: 76-year-old female with a history of endometrial carcinoma. She presents after being called for lift assist as she slid out of bed. She denies any trauma. She is mildly confused. She was found to have a high heart rate and low blood pressure. She is generally weak. MD Complaint: generalized weakness and lack of energy Onset (ago): hour(s) Duration: constant Location: generalized Migration: none Severity: moderate Quality: other Relieving factors: none Exacerbating factors: none Associated symptoms: Reports confusion and other (poor historian); Denies chest pain, chills, melena, fever(s), headache(s), short of breath or vomiting Review of Systems General: Reports: ROS unobtainable due to mental status Const: Denies: fever(s) or chills Card: Denies: chest pain GI: Denies: vomiting or melena Neuro: Reports: confusion; Denies: headache(s) [facility] ED PFSH: Medical History Acquired immunocompromised state Bilateral hydronephrosis Diffuse large B cell lymphoma Diagnosed 2018 Endometrial carcinoma On antineoplastic chemotherapy Ovarian cancer Followed in [place] Physical deconditioning Port-A-Cath in place Presence of IVC filter Right leg DVT (06/2021) GSV extending to CFV Status post insertion of nerve stimulator Vancomycin resistant Enterococcus infection Surgical History H/O cataract extraction bilateral eyes H/O tubal ligation History of colon resection History of left knee replacement History of removal of Port-a-Cath History of total right knee replacement History of ureter stent Bilateral, due to obstruction related to malignancy S/P cholecystectomy Status post hysteroscopy 06/11/2021- hysteroscopy with D&C via myosure performed by Dr. Victoria at [facility] Family History Mother , at age Hypertension Cancer pancreatic Father , at age 72 Colon cancer 72 Denies family history of Ovarian cancer Diabetes Clotting disorder Heart disease Hyperlipidemia Breast cancer Anesthesia complication Bleeding disorder Uterine cancer Thyroid condition Stroke Social History Smoking and tobacco status: former smoker (smoked x 15 years) Second hand smoke exposure: No Alcohol intake: never Adopted: No Caregiver/support person: Yes Lives independently: Yes Household members: significant other Housing: House Marital status: / service: No Current occupational status: retired Current occupational exposures/hazards: No Pets and animals: Yes History of recent travel: No Leisure activites: exercise Sexually active: No Current gender identity: Female Cheli/Temple: Zoroastrianism Physical Exam Const: GENERAL APPEARANCE: cooperative, ill appearing and frail appearing ORIENTATION/CONSCIOUSNESS: Yes awake, Yes oriented to person and Yes confused; not oriented to time HENMT: COMMON NORMALS: normocephalic, atraumatic and Normal external nose present HEAD & SCALP: normocephalic and atraumatic FACE & SINUS: normal facial exam NOSE: Normal external nose present and Normal nares present Eye: COMMON NORMALS: Equal, round and reactive pupils present and EOMs intact bilaterally PUPIL: Yes Equal, round and reactive pupils present Chest: CHEST: Yes Symmetrical chest wall rise Resp: COMMON NORMALS: normal respiratory effort, No use of accessory muscles and clear to auscultation bilaterally AUSCULTATION: clear to auscultation bilaterally and diminished lung sounds Cardio: COMMON NORMALS: regular rhythm RATE: tachycardic RHYTHM: regular rhythm GI: COMMON NORMALS: Normal to inspection, nondistended, normoactive bowel sounds present, Soft to palpation and non-tender PALPATION: Yes Soft to palpation and No Tenderness to palpation present (GI) Extremity: GENERAL: Yes edema (mild) Neuro: WILMAR COMA SCALE: document GCS findings Wilmar coma scale eye opening: Spontaneous Wil[place] coma scale verbal response: Confused [place] coma scale motor response: Obey commands [place] coma scale total score: 14 SENSORIUM/ORIENTATION: Yes oriented to person and No oriented to time Psych: COMMON NORMALS: cooperative Course Vital Signs: Vital signs: Vital Signs Temperature 97.7 F 12/29/21 19:30 Pulse Rate 75 12/29/21 21:00 Respiratory Rate 20 H 12/29/21 21:00 Blood Pressure 126/87 12/29/21 21:00 Pulse Oximetry 93 12/29/21 21:00 Oxygen Delivery Me thod 12/29/21 19:30 Oxygen Flow Rate 2 12/28/21 23:45 MDM - Weakness Medical Decision Making 76 year old female with a history of entering and ovarian cancer. She presents a s mildly confused with a low blood pressure. And systolic's initially were in the 70s, but have improved in the ER with IV fluid bolus. She's a bit more alert now. She has pain side of panic. Or potassium is low. My carbonate was low indicating dehydration. Chest X-ray shows nothing acute. CT shows chronic sinusitis with no acute abnormalities. Patient is hypovolemic and needs continued fluid resuscitation. She?ll be admitted for pancytopenia, hypotensive crisis, probable sepsis and mental status change. Hospitalist is aware. Lab Data : 12/29/21 16:05 12/29/21 05:21 Radiology Impressions Chest X-Ray 12/28/21 01:56 IMPRESSION: No acute cardiopulmonary abnormality identified. Head CT 12/28/21 01:56 IMPRESSION: 1. No acute intracranial abnormality identified. 2. Chronic sinusitis. Abdomen/Pelvis CT 12/28/21 04:16 IMPRESSION: 1. IVC filter noted in place. Thrombus in the IVC again noted, similar to prior exam. Additional newly developed thrombus in the IVC extending to the proximal left common iliac vein. Thrombus now also visualized in the right distal iliac/common femoral vein. 2. Bilateral double-J ureteral stents noted in place. No hydronephrosis. COMMENTS: For patients with an IVC filter, recommend assessment for a management plan for the patient's IVC filter. If there is no established management plan, recommend referral to an interventional clinician on a nonemergent basis for evaluation. ADDENDUM: 12/28/21 0534 THIS REPORT CONTAINS FINDINGS THAT MAY BE CRITICAL TO PATIENT CARE. The findings were verbally communicated via telephone conference with MECHE Noble at 5:31 AM CDT on 12/28/2021. The findings were acknowledged and understood. Venous Duplex 12/28/21 08:20 IMPRESSION: Bilateral lower extremity DVT. ADDENDUM: 12/28/21 0949 THIS REPORT CONTAINS FINDINGS THAT MAY BE CRITICAL TO PATIENT CARE. The findings were verbally communicated via telephone conference with CHIDI Wray at 9:46 AM CDT on 12/28/2021. The findings were acknowledged and understood. Chest CTA 12/28/21 11:45 IMPRESSION: 1. Negative for pulmonary embolus. 2. Coronary artery atherosclerotic calcifications. 3. Right-sided Port-A-Cath. 4. Minimal patchy bilateral ground-glass atelectasis. 5. Emphysematous changes. 6. Spinal stimulator. 7. Several chronic compression fractures of the spine without retropulsion of bony fragments similar prior exam. 8. Several prominent subcentimeter short axis nonspecific mediastinal lymph nodes. Laboratory Results WBC 4.0 10^3/uL (4.0-10.0) 12/28/21 02:00 RBC 2.63 10^6/uL (4.1-5.3) L 12/28/21 02:00 Hgb 8.0 g/dL (11.5-15.3) L 12/28/21 02:00 Hct 24.8 % (37.0-47.0) L 12/28/21 02:00 MCV 94.3 fl (81-99) 12/28/21 02:00 MCH 30.4 pg (28.0-34.0) 12/28/21 02:00 MCHC 32.3 g/dL (30.0-36.0) 12/28/21 02:00 RDW 16.2 % (12.1-15.1) H 12/28/21 02:00 Plt Count 122 10^3/cmm (130-400) L 12/28/21 02:00 Plt Count Cancelled 12/28/21 02:00 MPV 9.9 fL (7.4-10.4) 12/28/21 02:00 Neut % (Auto) 49.9 % 12/28/21 02:00 Lymph % (Auto) 46.0 % 12/28/21 02:00 Giles % (Auto) 3.0 % 12/28/21 02:00 Eos % (Auto) 0.2 % 12/28/21 02:00 Baso % (Auto) 0.2 % 12/28/21 02:00 Neut # (Auto) 2.00 10^3/uL (1.8-7.7) 12/28/21 02:00 Lymph # (Auto) 1.9 10^3/uL (0.8-4.8) 12/28/21 02:00 Giles # (Auto) 0.1 10^3/uL (0.2-0.9) L 12/28/21 02:00 Eos # (Auto) 0.0 10^3/uL (0.0-0.8) 12/28/21 02:00 Baso # (Auto) 0.0 10^3/uL (0.0-0.1) 12/28/21 02:00 Nucleated RBC % (auto) 0.5 % 12/28/21 02:00 Nucleated RBCs # 0.0 /100WBC 12/28/21 02:00 PT 14.90 SECONDS (12.1-14.9) 12/28/21 02:00 INR 1.14 (0.8-1.2) 12/28/21 02:00 APTT 25.2 SECONDS (23.9-36.7) 12/28/21 02:00 Specimen Type Arterial 12/28/21 02:27 Sample Site Radial, right 12/28/21 02:27 ABG pH 7.47 (7.35-7.45) H 12/28/21 02:27 ABG pCO2 26.5 mmHg (35-45) L 12/28/21 02:27 ABG pO2 87.5 mmHg (80.0-100.0) 12/28/21 02:27 ABG HCO3 19.2 mmol/L (22-26) L 12/28/21 02:27 ABG Base Excess -4.0 mmol/L (-2.0-2.0) L 12/28/21 02:27 [place] Test Pos 12/28/21 02:27 Hematocrit 21.7 % (37-47) L 12/28/21 02:27 O2 Delivery Device Nc 12/28/21 02:27 O2 Liters/Min 3.0 % 12/28/21 02:27 Asset Card Clerk ID [place] 12/28/21 02:27 Sodium 137 mmol/L (136-145) 12/28/21 02:00 Potassium 4.0 mmol/L (3.5-5.1) 12/28/21 02:00 Chloride 98 mmol/L (98-107) 12/28/21 02:00 Carbon Dioxide 19 mmol/L (22-29) L 12/28/21 02:00 Anion Gap 24.0 (5-19) H 12/28/21 02:00 BUN 17 mg/dL (8-23) 12/28/21 02:00 Creatinine 1.0 mg/dL (0.5-0.9) H 12/28/21 02:00 GFR Calculation Not Reportable 12/28/21 02:00 Glucose 168 mg/dL (65-115) H 12/28/21 02:00 Calculated Osmolality 289 mOsm/kg (285-295) 12/28/21 02:00 Lactate 6.1 mmol/L (0.5-2.2) H* 12/28/21 02:00 Calcium 8.7 mg/dL (8.5-10.5) 12/28/21 02:00 Total Bilirubin 0.7 mg/dL (0.15-1.2) 12/28/21 02:00 AST 18 U/L (0-32) 12/28/21 02:00 ALT 16 U/L (0-33) 12/28/21 02:00 Alkaline Phosphatase 66 U/L (35-105) 12/28/21 02:00 Creatine Kinase 18 U/L (26-192) L 12/28/21 02:00 Troponin T Baseline 28 ng/L (0-10) H 12/28/21 02:00 C-Reactive Protein 19.8 mg/L (0.0-4.9) H 12/28/21 02:00 NT-Pro-B Natriuret Pep 564 pg/mL (0-450) H 12/28/21 02:00 Total Protein 6.2 g/dL (6.6-8.7) L 12/28/21 02:00 Albumin 3.3 g/dL (3.5-5.2) L 12/28/21 02:00 Globulin 2.9 g/dL (1.3-4.6) 12/28/21 02:00 Blood Type O Negative 12/28/21 02:16 Rho(D) Type Negative 12/28/21 02:16 Antibody Screen Negative 12/28/21 02:16 Crossmatch See Detail 12/28/21 02:16 Discharge Plan Discharge Patient Disposition: Admitted As Inpatient Admit Provider: Gabby Wood Clinical Impression: Weakness, Hypotension, Lactic acidosis Condition: Serious Coding Level of Care Code ED Reheater Helper for Chg Fwd Exam Comprehensive
[2021-12-28 02:10] LABS: Basophils % 0.2 %; Eosinophils % 0.2 %; Hematocrit 24.8 % (37.0-47.0); Lymphocytes # 1.9 10^3/uL (0.8-4.8); Mean Corpuscular HGB Conc 32.3 g/dL (30.0-36.0); Mean Corpuscular Hemoglobin 30.4 pg (28.0-34.0); Mean Corpuscular Volume 94.3 fl (81-99); Mean Platelet Volume 9.9 fL (7.4-10.4); Monocytes # 0.1 10^3/uL (0.2-0.9); Neutrophils % 49.9 %; Nucleated Red Blood Cells % 0.5 %; Platelet Count 122 10^3/cmm (130-400); Red Blood Count 2.63 10^6/uL (4.1-5.3); Red Cell Distribution Width 16.2 % (12.1-15.1)
[2021-12-28] MEDS: sodium chloride 0.9% 1,000 ML 999 ML IV ×3 (02:28→04:25)
[2021-12-28 02:29] LABS: Lactate (Lactic Acid level) 6.1 mmol/L (0.5-2.2)
[2021-12-28 02:35] LABS: Troponin(5th) Baseline 28 ng/L (0-10)
[2021-12-28 02:38] LABS: ABG PCO2 26.5 mmHg (35-45); ABG PH Result 7.47 (7.35-7.45); Arterial Blood Gas Hematocrit 21.7 % (37-47); Blood Gas Allen Test Pos; Blood Gas Operator Identificat WALCI; Blood Gas Sample Site Radial, right; Blood Gas Sample Type Arterial; HCO3 ABG 19.2 mmol/L (22-26); Oxygen Device NC; PO2 ABG 87.5 mmHg (80.0-100.0)
[2021-12-28 02:44] LABS: Alanine Aminotransferase 16 U/L (0-33); Albumin Level 3.3 g/dL (3.5-5.2); Alkaline Phosphatase 66 U/L (35-105); Aspartate Amino Transferase 18 U/L (0-32); Blood Urea Nitrogen 17 mg/dL (8-23); C Reactive Protein 19.8 mg/L (0.0-4.9); Calcium 8.7 mg/dL (8.5-10.5); Carbon Dioxide 19 mmol/L (22-29); Chloride 98 mmol/L (98-107); Creatine Phosphokinase 18 U/L (26-192); Globulin 2.9 g/dL (1.3-4.6); Glucose 168 mg/dL (65-115); NT Pro B Type Natriuretic Pept 564 pg/mL (0-450); Osmolality Calculated 289 mOsm/kg (285-295); Sodium 137 mmol/L (136-145); Total Bilirubin 0.7 mg/dL (0.15-1.2); Total Protein 6.2 g/dL (6.6-8.7)
[2021-12-28 02:45] LABS: INR 1.14 (0.8-1.2)
[2021-12-28 02:46] LABS: Partial Thromboplastin Time 25.2 SECONDS (23.9-36.7)
--- NOTE | 2021-12-28 03:55 | PC.NURSE ---
Pt was titrated to 1.5L NC after CT. Pt O2 saturation 100%, d/c O2
--- NOTE | 2021-12-28 04:10 | ECG_ITS ---
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 Measurements Intervals [place] Rate: 90 P: 67 AL: 154 QRS: -38 QRSD: 90 T: 127 QT: 361 QTc: 444 Interpretive Statements SINUS RHYTHM LEFT AXIS DEVIATION [QRS AXIS < -30] SEPTAL MYOCARDIAL INFARCTION , PROBABLY OLD [40+ ms Q WAVE IN V1/V2] MODERATE T-WAVE ABNORMALITY, CONSIDER LATERAL ISCHEMIA [-0.1+ mV T-WAVE IN I/aVL/V5/V6] Compared to ECG 12/28/2021 01:43:14 Atrial flutter no longer present Myocardial infarct finding still present T-wave abnormality still present Possible ischemia still present Electronically Signed On 12-29-2021 23:10:58 CDT by Julia Castellon M.D. [id number]
--- NOTE | 2021-12-28 04:16 | CTR_ITS ---
PROCEDURE INFORMATION: Exam: CT Abdomen And Pelvis With Contrast Exam date and time: 12/28/2021 4:36 AM Age: 76 years old Clinical indication: Other: Sepsis. Prior surgery; Surgery type: Gb. Colon resection. Spinal stimulator. Ivc filter. Patient HX: Sepsis with hypotension. History of uterine cancer and lymphoma. ; Additional info: Hypotension, sepsis, HX of carcinoma TECHNIQUE: Imaging protocol: Computed tomography of the abdomen and pelvis with contrast. Radiation optimization: All CT scans at this facility use at least one of these dose optimization techniques: automated exposure control; mA and/or kV adjustment per patient size (includes targeted exams where dose is matched to clinical indication); or iterative reconstruction. Contrast material: OMNI 350; Contrast volume: 100 ml; Contrast route: INTRAVENOUS (IV); COMPARISON: CT chest abd pel w con* 10/22/2021 3:30 PM RADIATION DOSE METRICS: Total DLP (mGy-cm): 749.93 FINDINGS: Tubes, catheters and devices: Partially visualized thoracic lead wires noted with generator in the left flank. Liver: Area of hypoattenuation along the anterior margin of the liver adjacent to the falciform ligament consistent with focal fatty infiltration. The liver is normal in size and contour. Gallbladder and bile ducts: The gallbladder is surgically absent. Pancreas: The pancreas appears normal. Spleen: The spleen appears normal. Adrenal glands: The adrenals appear normal. Kidneys and ureters: Bilateral double-J ureteral stents noted in place. No hydronephrosis. Stomach and bowel: The stomach appears unremarkable. The small bowel loops are not abnormally dilated. The large bowel loops are not abnormally dilated. Postsurgical changes at the rectosigmoid junction likely related to prior partial colectomy. Appendix: No signs of appendicitis. Intraperitoneal space: No ascites or significant fluid collection. Vasculature: Infrarenal IVC filter noted in place. Probable trapped thrombus in the apex of the IVC filter. Thrombus in the IVC measuring up to 9 mm (axial series 22, image 31) similar prior exam, and additionally measuring up to 9 mm more inferiorly (series 22, image 36), not visualized on prior exam, extending into the proximal left common iliac vein. Thrombus now also visualized in the right common femoral vein and distal external iliac vein. Lymph nodes: There are no enlarged lymph nodes. Urinary bladder: The bladder is distended and demonstrates no focal contour abnormality. Reproductive: 3.8 cm fluid density left adnexal cyst noted, similar to prior exam. Periuterine calcifications noted. The uterus appears atrophic. Bones/joints: Prominent compression deformities in the lower thoracic and lumbar spine again noted at T11 and L1. Exaggerated lordotic curvature of the lumbar spine. Grade 1 anterolisthesis of L4 on L5. Soft tissues: Unremarkable. CT/CT abdomen pelvis w con* [id number] IMPRESSION: 1. IVC filter noted in place. Thrombus in the IVC again noted, similar to prior exam. Additional newly developed thrombus in the IVC extending to the proximal left common iliac vein. Thrombus now also visualized in the right distal iliac/common femoral vein. 2. Bilateral double-J ureteral stents noted in place. No hydronephrosis. COMMENTS: For patients with an IVC filter, recommend assessment for a management plan for the patient's IVC filter. If there is no established management plan, recommend referral to an interventional clinician on a nonemergent basis for evaluation.
[2021-12-28] MEDS: iohexol 350 mg/mL 100 mL Btl IV ×2 (04:48→15:51)
[2021-12-28 05:00] LABS: Troponin 5 2HR 29.78 ng/L (0-10); Troponin 5 2HR Delta 1.78 ABS# (0-10)
[2021-12-28 05:02] LABS: Bilirubin Urine Neg (Negative); Blood Urine 2+ (Negative); Glucose Urine UA Trace (Normal); Ketones Urine Negative (Negative); Nitrate Urine Negative (Negative); Protein Urine 2+ (Negative); Urine Appearance Hazy (CLEAR); Urine Color Yellow (Yellow); pH Urine 5 (5-7)
[2021-12-28 05:03] LABS: Add Urine Microscopic? YES; Leukocyte Esterase Urine 2+ (Negative); Sulfosalicylic Acid Urine Positive (Negative); Urobilinogen Urine Neg (Negative)
[2021-12-28 05:04] LABS: Squamous Epithelial Cell Urine 0-4 /hpf (0-5); Transitional Epi Cells Urine 0-4 /hpf; WBC Urine 15-25 /hpf (0-5)
[2021-12-28 05:05] LABS: Add Urine Culture? Yes; Bacteria Urine 3+ /hpf; Other Casts Urine WBC CAST /lpf
--- NOTE | 2021-12-28 06:38 | P.HP_ITS ---
Providers/Chief Complaint Admitting Physician: Gabby Wood MD Primary Care Provider: Nils Gambino DO Chief Complaint: WEAKNESS History of Present Illness Francie Levine is a 76 year old female with a history of non-Hodgkin lymphoma, treated with R-CHOP, now in remission,more recently diagnosed with endometrial ca with involvement of abdominal LN and omentum in 06/27. She is currently on neoadjuvant chemotherapy with 3 weekly carboplatin and Taxol since July 2021, with post chemo course usually complicated by dehydration, diarrhea and hypotension. She is planned to undergo hysterectomy once tumor burden shrinks.? She was also diagnosed with right leg DVT and she has IVC filter placed in july 2021. As she had active endometrial bleeding at that time, she was not considered a candidate for anticogulation. More recently in november she had ureteral stents by Dr. Burr in [place], for recent history of bilateral ureteral obstruction and hydronephrosis. She presents to the ER today c/o dehydration which she attributes to her chemotherapy one week ago. Described symptoms as generalized malaise, weakness. Since November she has been on dose reduced regimen of chemo regimen to ensure better tolerability. On presentation to the emergency room she was noted to be hypotensive with a systolic blood pressure of 70. At the time of my assessment blood pressure is i mproved to 101/65 after receiving 2 L of fluid bolus in the ER. Her lactate was elevated at 6. Recent urine culture also showed E. coli which is resistant to her prophylactic regimen of Cipro floxacillin. I requested a CT of the abdomen and pelvis to evaluate for any obstructive pyelonephritis versus abdominal bleeding to explain her hypotension given that she had thrombocytopenia in late November. CT abdomen was negative for hydronephrosis and bleeding, however showed progression of known DVT since 10/2021. Newly developed thrombus was noted in the IVC extended into the proximal left common iliac vein and right distal iliac common femoral veins. No signs of bowel ischemia were noted on the CT. She denies any cough, chest pain, dyspnea, palpitations, abdominal pain, nausea, vomiting, anjum, vaginal bleeding at this time. Denies dysuria,it appears she was noted to have asymptomatic bactereiuria on 12/20 in the ED following which she has been on treatment with cephalexin 250mg BID. Of note, she has a h/o recurrent orthostatic BP drop on multiple previous occasions which has responded to IVF hydration. Review of Systems General: Reports: 10 or more systems reviewed and unremarkable except in HPI and below Const: Denies: fever(s), chills or body aches Eyes: Denies: change in vision, blurry vision or photophobia ENMT: Reports: hoarseness; Denies: throat pain, enlarged tonsils, odynophagia or nasal congestion Card: Denies: chest pain, palpitations, irregular heart rhythm, edema, swelling of feet/ankles, lightheadedness, pre-syncope, dyspnea on exertion or orthopnea Resp: Denies: dyspnea, productive cough, non-productive cough, wheezing, s tridor, pain on inspiration, change in phlegm color, hemoptysis or chest congestion GI: Denies: abdominal pain, nausea, vomiting, hematemesis, coffee ground emesis, dysphagia, heartburn, diarrhea, constipation, GI cramping, change in stool character, hematochezia or melena : Denies: flank pain, difficulty voiding, dysuria, urinary frequency, urinary urgency, urinary hesitancy or hematuria Musc: Denies: neck pain, back pain, extremity pain, joint swelling, joint warmth or deformity Neuro: Denies: headache(s), numbness in extremities, weakness in extremities, sensory changes, difficulty walking, frequent falls, dizziness, vertigo, behavioral changes, Slurred speech present or seizure-like activity Psych: Denies: anxiety, depression, suicidal ideation or homicidal ideation Endo: Denies: polyuria, polydipsia, tired all the time, cold intolerance or hot flashes Wally/Lymph: Denies: easy bruising or easy bleeding Medications/Allergies Home Medications Medication Instructions Recorded Confirmed Last Taken Type loratadine 10 mg tablet (Claritin) 10 mg PO DAILY PRN Allergy Symptoms 02/14/21 12/23/21 08/08/21 History hydrocodone 5 mg-acetaminophen 325 1 tab PO Q4H PRN Pain 07/15/21 12/23/21 2 Weeks Ago History mg tablet ~10/22/21 ondansetron 4 mg disintegrating 4 mg PO Q6H PRN nausea and 07/15/21 12/23/21 08/06/21 Rx tablet vomiting #14 tabs duloxetine 30 mg capsule,delayed 30 mg PO BEDTIME 08/05/21 12/23/21 11/04/21 History release hydroxyzine HCl 25 mg tablet 25 mg PO DAILY PRN Itching 09/17/21 12/23/21 11/04/21 History carboplatin 10 mg/mL intravenous See Rx Instructions .Route .COMPLEX 11/05/21 12/23/21 09/11/21 History solution fosaprepitant 150 mg intravenous 150 mg IV .BEFORE CHEMO 11/05/21 12/23/21 09/11/21 History solution (Emend (fosaprepitant)) lorazepam 0.5 mg tablet (Ativan) 0.5 mg PO .BEFORE CHEMO 11/05/21 12/23/21 Unknown History paclitaxel 6 mg/mL See Rx Instructions .Route .COMPLEX 11/05/21 12/23/21 09/11/21 History concentrate,intravenous palonosetron 0.25 mg/5 mL 0.25 mg IV .BEFORE CHEMO 11/05/21 12/23/21 Unknown History intravenous solution dexamethasone 4 mg tablet 4 mg PO .COMPLEX #10 tabs 11/19/21 12/23/21 Unknown Rx promethazine 25 mg tablet 25 mg PO Q6H PRN nausea and 12/01/21 12/23/21 Unknown Rx vomiting #20 tabs potassium chloride 20 mEq 20 meq PO BID 7 days #14 tabs 12/04/21 12/23/21 Unknown Rx tablet,extended release magnesium oxide 400 mg (241.3 mg 400 mg PO BID #60 tabs 12/06/21 12/23/21 Unknown Rx magnesium) tablet potassium chloride 20 mEq 40 meq PO BID #120 tabs 12/06/21 12/23/21 Unknown Rx tablet,extended release(part/cryst) Allergies Allergy/AdvReac Type Severity Reaction Status Date / Time naproxen Allergy ADR-Nausea Verified 12/23/21 08:57 PFSH Acute PFSH: Medical History Acquired immunocompromised state Bilateral hydronephrosis Diffuse large B cell lymphoma Diagnosed 2018 Endometrial carcinoma On antineoplastic chemotherapy Ovarian cancer Followed in [place] Physical deconditioning Port-A-Cath in place Presence of IVC filter Right leg DVT (06/2021) GSV extending to CFV Status post insertion of nerve stimulator Vancomycin resistant Enterococcus infection Surgical History H/O cataract extraction bilateral eyes H/O tubal ligation History of colon resection History of left knee replacement History of removal of Port-a-Cath History of total right knee replacement History of ureter stent Bilateral, due to obstruction related to malignancy S/P cholecystectomy Status post hysteroscopy 06/11/2021- hysteroscopy with D&C via myosure performed by Dr. Victoria at [facility] Family History Mother , at age Hypertension Cancer pancreatic Father , at age 72 Colon cancer 72 Denies family history of Ovarian cancer Diabetes Clotting disorder Heart disease Hyperlipidemia Breast cancer Anesthesia complication Bleeding disorder Uterine cancer Thyroid condition Stroke Social History Smoking and tobacco status: former smoker (smoked x 15 years) Second hand smoke exposure: No Alcohol intake: never Adopted: No Caregiver/support person: Yes Lives independently: Yes Household members: significant other Housing: House Marital status: / service: No Current occupational status: retired Current occupational exposures/hazards: No Pets and animals: Yes History of recent travel: No Leisure activites: exercise Sexually active: No Current gender identity: Female Cheli/Orthodox: Confucianism Vitals/I&O/Wt Last Vital Signs Temp 98.4 F 12/28/21 01:39 Pulse 95 12/28/21 05:25 Resp 18 12/28/21 05:25 BP 119/44 12/28/21 05:25 Pulse Ox 100 12/28/21 05:25 O2 Del Method 12/28/21 05:45 O2 Flow Rate 1.5 12/28/21 03:17 12/27/21 12/27/21 12/28/21 14:59 22:59 06:59 Intake Total 1999 Balance 1999 Weight last 48 hrs Weight 87.798 kg Weight 87.997 kg Physical Exam Narrative: General: No acute distress, AO x3 HEENT: PERRLA, pupils bilaterally equal and reactive, pallors not present Chest: Normal vesicular breath sounds, no added sounds, equal good air entry bilaterally CVS: S1-S2 regular, no murmurs, no tachycardia, no gallops, no rubs Abdomen: Soft, nontender, no organomegaly, bowel sounds present Neuro: No focal deficits, no facial deformity, AO x3, power 5/5 in all limbs Extremities: Healthy surgical dressing present on the right hip, mild tenderness, soft no erythema. Data : 12/28/21 02:00 12/28/21 02:00 Other Labs: Radiology Impressions Chest X-Ray 12/28/21 01:56 IMPRESSION: No acute cardiopulmonary abnormality identified. Head CT 12/28/21 01:56 IMPRESSION: 1. No acute intracranial abnormality identified. 2. Chronic sinusitis. Abdomen/Pelvis CT 12/28/21 04:16 IMPRESSION: 1. IVC filter noted in place. Thrombus in the IVC again noted, similar to prior exam. Additional newly developed thrombus in the IVC extending to the proximal left common iliac vein. Thrombus now also visualized in the right distal iliac/common femoral vein. 2. Bilateral double-J ureteral stents noted in place. No hydronephrosis. COMMENTS: For patients with an IVC filter, recommend assessment for a management plan for the patient's IVC filter. If there is no established management plan, recommend referral to an interventional clinician on a nonemergent basis for evaluation. ADDENDUM: 12/28/21 0534 THIS REPORT CONTAINS FINDINGS THAT MAY BE CRITICAL TO PATIENT CARE. The findings were verbally communicated via telephone conference with MECHE Noble at 5:31 AM CDT on 12/28/2021. The findings were acknowledged and understood. Laboratory Results WBC 4.0 10^3/uL (4.0-10.0) 12/28/21 02:00 RBC 2.63 10^6/uL (4.1-5.3) L 12/28/21 02:00 Hgb 8.0 g/dL (11.5-15.3) L 12/28/21 02:00 Hct 24.8 % (37.0-47.0) L 12/28/21 02:00 MCV 94.3 fl (81-99) 12/28/21 02:00 MCH 30.4 pg (28.0-34.0) 12/28/21 02:00 MCHC 32.3 g/dL (30.0-36.0) 12/28/21 02:00 RDW 16.2 % (12.1-15.1) H 12/28/21 02:00 Plt Count 122 10^3/cmm (130-400) L 12/28/21 02:00 MPV 9.9 fL (7.4-10.4) 12/28/21 02:00 Neut % (Auto) 49.9 % 12/28/21 02:00 Lymph % (Auto) 46.0 % 12/28/21 02:00 [place] % (Auto) 3.0 % 12/28/21 02:00 Eos % (Auto) 0.2 % 12/28/21 02:00 Baso % (Auto) 0.2 % 12/28/21 02:00 Neut # (Auto) 2.00 10^3/uL (1.8-7.7) 12/28/21 02:00 Lymph # (Auto) 1.9 10^3/uL (0.8-4.8) 12/28/21 02:00 [place] # (Auto) 0.1 10^3/uL (0.2-0.9) L 12/28/21 02:00 Eos # (Auto) 0.0 10^3/uL (0.0-0.8) 12/28/21 02:00 Baso # (Auto) 0.0 10^3/uL (0.0-0.1) 12/28/21 02:00 Nucleated RBC % (auto) 0.5 % 12/28/21 02:00 Nucleated RBCs # 0.0 /100WBC 12/28/21 02:00 PT 14.90 SECONDS (12.1-14.9) 12/28/21 02:00 INR 1.14 (0.8-1.2) 12/28/21 02:00 APTT 25.2 SECONDS (23.9-36.7) 12/28/21 02:00 Specimen Type Arterial 12/28/21 02:27 Sample Site Radial, right 12/28/21 02:27 ABG pH 7.47 (7.35-7.45) H 12/28/21 02:27 ABG pCO2 26.5 mmHg (35-45) L 12/28/21 02:27 ABG pO2 87.5 mmHg (80.0-100.0) 12/28/21 02:27 ABG HCO3 19.2 mmol/L (22-26) L 12/28/21 02:27 ABG Base Excess -4.0 mmol/L (-2.0-2.0) L 12/28/21 02:27 [place] Test Pos 12/28/21 02:27 Hematocrit 21.7 % (37-47) L 12/28/21 02:27 O2 Delivery Device Nc 12/28/21 02:27 O2 Liters/Min 3.0 % 12/28/21 02:27 Clinical Data Coordinator ID Celestine 12/28/21 02:27 Sodium 137 mmol/L (136-145) 12/28/21 02:00 Potassium 4.0 mmol/L (3.5-5.1) 12/28/21 02:00 Chloride 98 mmol/L (98-107) 12/28/21 02:00 Carbon Dioxide 19 mmol/L (22-29) L 12/28/21 02:00 Anion Gap 24.0 (5-19) H 12/28/21 02:00 BUN 17 mg/dL (8-23) 12/28/21 02:00 Creatinine 1.0 mg/dL (0.5-0.9) H 12/28/21 02:00 GFR Calculation Not Reportable 12/28/21 02:00 Glucose 168 mg/dL (65-115) H 12/28/21 02:00 Calculated Osmolality 289 mOsm/kg (285-295) 12/28/21 02:00 Lactate 6.1 mmol/L (0.5-2.2) H* 12/28/21 02:00 Calcium 8.7 mg/dL (8.5-10.5) 12/28/21 02:00 Total Bilirubin 0.7 mg/dL (0.15-1.2) 12/28/21 02:00 AST 18 U/L (0-32) 12/28/21 02:00 ALT 16 U/L (0-33) 12/28/21 02:00 Alkaline Phosphatase 66 U/L (35-105) 12/28/21 02:00 Creatine Kinase 18 U/L (26-192) L 12/28/21 02:00 Troponin T Baseline 28 ng/L (0-10) H 12/28/21 02:00 Troponin T 120 Minute 29.78 ng/L (0-10) H 12/28/21 04:25 Delta Troponin T 1.78 ABS# (0-10) 12/28/21 04:25 C-Reactive Protein 19.8 mg/L (0.0-4.9) H 12/28/21 02:00 NT-Pro-B Natriuret Pep 564 pg/mL (0-450) H 12/28/21 02:00 Total Protein 6.2 g/dL (6.6-8.7) L 12/28/21 02:00 Albumin 3.3 g/dL (3.5-5.2) L 12/28/21 02:00 Globulin 2.9 g/dL (1.3-4.6) 12/28/21 02:00 Urine Color Yellow (Yellow) 12/28/21 04:25 Urine Appearance Hazy (CLEAR) A 12/28/21 04:25 Urine pH 5 (5-7) 12/28/21 04:25 Ur Specific [place] 1.010 (1.005-1.030) 12/28/21 04:25 Urine Protein 2+ (Negative) H 12/28/21 04:25 Urine Glucose (UA) Trace (Normal) H 12/28/21 04:25 Urine Ketones Negative (Negative) 12/28/21 04:25 Urine Blood 2+ (Negative) H 12/28/21 04:25 Urine Nitrate Negative (Negative) 12/28/21 04:25 Urine Bilirubin Neg (Negative) 12/28/21 04:25 Prot Sulfosalicylic Acd Positive (Negative) 12/28/21 04:25 Urine Urobilinogen Neg mg/dL (Negative) 12/28/21 04:25 Ur Leukocyte Esterase 2+ (Negative) H 12/28/21 04:25 Urine RBC 5-10 /hpf (0-2) H 12/28/21 04:25 Urine WBC 15-25 /hpf (0-5) H 12/28/21 04:25 Ur Squamous Epith Cells 0-4 /hpf (0-5) H 12/28/21 04:25 Ur Transition Epith Cell 0-4 /hpf 12/28/21 04:25 Amorphous Sediment Not Reportable 12/28/21 04:25 Urine Bacteria 3+ /hpf (NONE) H 12/28/21 04:25 Other Casts Wbc cast /lpf 12/28/21 04:25 Blood Type O Negative 12/28/21 02:16 Rho(D) Type Negative 12/28/21 02:16 Antibody Screen Negative 12/28/21 02:16 Micro: Microbiology 12/28/21 02:40 Blood Culture - Preliminary Blood SPECIMEN COLLECTED 12/28/21 02:16 Blood Culture - Preliminary Blood SPECIMEN COLLECTED A&P Assessment and plan (1) Hypotension: Patient presenting today with hypotension with a past medical history of similar admissions noted particularly after chemotherapy sessions. On admission systolic blood pressure was in the 70s, with IV fluid resuscitation, at the time of my assessment her blood pressure is 101/65. Certainly dehydration remains a possibility given and otherwise nontoxic exam. Continue IV fluid normal saline at 100 cc an hour Will check orthostatics She denies any current GI losses, no bleeding at any site Recently diagnosed with a urinary tract infection, urine culture showing E. coli, she was treated with cephalexin which appears to be susceptible isolate. She was asymptomatic as far as urinary symptoms are concerned. She denies any dysuria today. However her lactate is noted to be grossly elevated at 6.0. Therefore I am keeping her on empiric treatment with ceftriaxone while undergoin g infectious work-up. Blood culture has been ordered. Chest x-ray without any consolidation. CT of the abdomen has ruled out current obstructive uropathy. No hydronephrosis noted. Her stents appear to be in good position. (2) Progression of deep vein thrombosis (DVT): Patient has a past medical history. Also noted in October 2021 was iliac vein DVT around her IVC thrombus. CT of the abdomen was performed today to evaluate for any obstructive pyelonephritis, retroperitoneal bleeding or bowel ischemia given elevated lactate, while the study was negative for all of the above it did show progression of her known iliac DVT. New clots are now present in the left iliac, right iliac and extension into the common femoral vein. She is not currently actively bleeding. IVC filter was placed in July 2021 because at that time she had active uterine bleeding. Given the fact the patient is not actively bleeding and progression of clots, discussed with patient that a trial of anticoagulation may be appropriate at this point. We will start her on heparin GTT while monitoring closely for any signs of bleeding in which case heparin drip can be stopped quickly and coagulopathy reversed. If she tolerates initiation of heparin anticoagulation, discharge with Lovenox may be a consideration. Attempted to discuss this management plan with her outpatient oncologist, however Dr. Baugh is not available until Wednesday unfortunately. Patient understands the risks of initiating anticoagulation, however weighing the risk benefit ratio she is currently agreeable for a trial of heparin with transition to Lovenox if tolerated. Hemoglobin is currently at 8.0. Recent baseline between 8.4-9.6. Platelets currently at 122. (3) Endometrial carcinoma: (4) Lactic acidosis: Unclear cause. Empiric ceftriaxone 1 g IV every 24 in the interim. Patient is not currently neutropenic No localizing signs or symptoms of infection at this point in time. Attestations Medical Necessity Statement*: Anticipate greater than 2 midnight for IVF resucitation , starting high risk anticoagulation for progressive DVT. Coding Level of Care Code Acute Arnp for g Fwd Diagnoses Hypotension I95.9 Progression of deep vein thrombosis (DVT) I82.409 Endometrial carcinoma C54.1 Lactic acidosis E87.20
[2021-12-28] MEDS: sodium chloride 0.9% 1,000 ML 100 ML IV (06:59)
--- NOTE | 2021-12-28 07:51 | ECG_ITS ---
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 Measurements Intervals [place] Rate: 94 P: 61 [place]: 153 QRS: -41 QRSD: 87 T: 134 QT: 352 QTc: 442 Interpretive Statements SINUS RHYTHM LEFT AXIS DEVIATION [QRS AXIS < -30] ANTEROSEPTAL MYOCARDIAL INFARCTION , PROBABLY OLD [40+ ms Q WAVE IN V1-V4] MODERATE T-WAVE ABNORMALITY, CONSIDER LATERAL ISCHEMIA [-0.1+ mV T-WAVE IN I/aVL/V5/V6] Compared to ECG 12/28/2021 04:10:37 No significant changes Electronically Signed On 12-29-2021 23:10:32 CDT by Julia Castellon M.D. [email or web address]
[2021-12-28] MEDS: pantoprazole DR 40 mg Tablet PO (08:03)
--- NOTE | 2021-12-28 08:20 | USR_ITS ---
PROCEDURE INFORMATION: Exam: US Duplex Lower Extremity Veins, Bilateral Exam date and time: 12/28/2021 8:38 AM Age: 76 years old Clinical indication: Abnormal findings; Abnormal imaging study of limbs; Seen on CT of pelvisc; Additional info: Evalute for clot progression rle dvt, worsening iliac thrombosis noted on CT abdomen TECHNIQUE: Imaging protocol: Real-time Duplex ultrasound of the bilateral extremities with 2-D domínguez scale, color Doppler flow and spectral waveform analysis with image documentation. Complete exam focused on the bilateral lower extremity veins. COMPARISON: US renal BI* [id number] 06/09/2021 4:37 PM FINDINGS: Right deep veins: Multifocal nonocclusive DVT in the right lower extremity extending from the right common femoral vein to the popliteal vein. Left deep veins: Multifocal occlusive and nonocclusive DVT throughout the left lower extremity extending from the common femoral vein to the below-knee vessels. Soft tissues: Unremarkable. US/[place] [id number] IMPRESSION: Bilateral lower extremity DVT.
[2021-12-28] MEDS: heparin drip 25,000 UNIT/500 ML PREMIX 25 UNIT IV (08:47)
[2021-12-28] MEDS: cefTRIAXone 1,000 MG in sodium chloride 0.9% (plus) 50 ML 100 MG IV (08:53)
--- NOTE | 2021-12-28 09:08 | PC.NURSE ---
Heparin gtt changed from 25mL/hr per protocol to 10mL/hr per Dr. Slater.
[2021-12-28 09:15] LABS: Troponin 5 6HR 33.13 ng/L (0-10)
[2021-12-28] MEDS: linezolid premix 600 MG/300 ML PREMIX 300 MG IV ×2 (09:22→20:08)
[2021-12-28 09:23] LABS: Iron 175 ug/dL (37-145)
[2021-12-28 09:25] LABS: Troponin 5 6HR Delta 5.13 ng/L (0-12)
[2021-12-28 09:34] LABS: Percent Saturation 84.5 % (20-50); Total Iron Binding Capacity 207 mcg/dl; Unsaturated Iron Binding 32 ug/dL (112-347)
[2021-12-28 09:46] LABS: Ferritin 1621 ng/mL (15-150)
[2021-12-28] MEDS: sucralfate 1 gm Tablet PO ×3 (10:16→20:08)
--- NOTE | 2021-12-28 10:37 | PC.NURSE ---
SCDs removed due to bilateral DVTs, Heparin gtt currently running
--- NOTE | 2021-12-28 11:33 | PM.PN ---
Subjective Subjective: - The following discussion was made in front of nursing staff -Patient's CODE STATUS is she wants 1 round of CPR, okay with round round of shocking, ACLS drugs, stop thereafter does not want to be intubated -I discussed patient's CT abdomen findings, with newly developed thrombus in the IVC extending to the proximal left common iliac vein, also thrombus in the right distal iliac common femoral vein -Her venous ultrasound shows extensive bilateral extremity DVTs -Given her propensity to form clots, with underlying cancer, were considered with her developing heavy clot burden, I am concerned for IVC obstruction, IVC thrombosis -She does complain of weakness, generalized malaise -The concern is her chronic anemia, she has never had EGD or colonoscopy before, but she has required transfusions in the past, Hemoccults have been positive for blood however she denies any bloody or black stools -The presumed etiology behind her chronic anemia was her vaginal bleeding from her malignancy, now likely a component related to her chemotherapy, however cannot rule out underlying slow GI bleed -She has had orthostatic hypotension, potentially dehydration, potential UTI, but also is concerned for heavy clot burden in the IVC leading to some degree obstruction -I discussed with her our concerns, she voiced understanding, all questions answered, agreed to proceed with anticoagulation -Will monitor hemoglobin every 4 hours including her platelet count -We will start her on low-dose heparin drip at 10, and slowly titrate up, avoid heparin bolus -Monitor for bloody black stools, monitor for hemodynamic compromise -In addition I put her on broad-spectrum antibiotic therapy given her history of multidrug-resistant UTIs Vitals/I&O/Wt Last Vital Signs Temp 98.4 F 12/28/21 01:39 Pulse 98 12/28/21 08:55 Resp 17 12/28/21 08:55 BP 133/80 12/28/21 08:55 Pulse Ox 97 12/28/21 08:55 O2 Del Method 12/28/21 05:45 O2 Flow Rate 1.5 12/28/21 03:17 12/27/21 12/28/21 12/28/21 22:59 06:59 14:59 Intake Total 3000 / 3000 479.167 / 479.167 Balance 3000 / 3000 479.167 / 479.167 Weight last 48 hrs Weight 87.798 kg Weight 87.997 kg Physical Exam Const: COMMON NORMALS: no acute distress and patient oriented x3 GENERAL APPEARANCE: ill appearing and frail appearing Resp: COMMON NORMALS: normal respiratory effort, No retractions, No use of accessory muscles and clear to auscultation bilaterally AUSCULTATION: clear to auscultation bilaterally Cardio: COMMON NORMALS: regular rate, regular rhythm, S1 normal heart sound present and S2 normal heart sound present RATE: regular rate RHYTHM: regular rhythm HEART SOUNDS: S1 normal heart sound present and S2 normal heart sound present GI: COMMON NORMALS: Normal to inspection, nondistended, normoactive bowel sounds present, Soft to palpation, non-tender and no bruits PALPATION: Yes Soft to palpation Extremity: COMMON NORMALS: no pedal edema Neuro: COMMON NORMALS: patient oriented x3 Psych: COMMON NORMALS: mental status grossly normal Data : 12/28/21 02:00 12/28/21 02:00 Micro: Microbiology 12/28/21 02:40 Blood Culture - Preliminary Blood SPECIMEN COLLECTED 12/28/21 02:16 Blood Culture - Preliminary Blood SPECIMEN COLLECTED A&P Assessment and plan (1) Hypotension: Patient presenting today with hypotension with a past medical history of similar admissions noted particularly after chemotherapy sessions. On admission systolic blood pressure was in the 70s, with IV fluid resuscitation, at the time of my assessment her blood pressure is 101/65. Certainly dehydration remains a possibility given and otherwise nontoxic exam. Continue IV fluid normal saline at 100 cc an hour Will check orthostatics She denies any current GI losses, no bleeding at any site Recently diagnosed with a urinary tract infection, urine culture showing E. coli, she was treated with cephalexin which appears to be susceptible isolate. She was asymptomatic as far as urinary symptoms are concerned. She denies any dysuria today. However her lactate is noted to be grossly elevated at 6.0. Has a a history of VRE Enterococcus UTI Blood culture has been ordered. Chest x-ray without any consolidation. CT of the abdomen has ruled out current obstructive uropathy. No hydronephrosis noted. Her stents appear to be in good position. Continue vancomycin, Rocephin (2) Progression of deep vein thrombosis (DVT): Patient has a past medical history. Also noted in October 2021 was iliac vein DVT around her IVC thrombus. CT of the abdomen was performed today to evaluate for any obstructive pyelonephritis, retroperitoneal bleeding or bowel ischemia given elevated lactate, while the study was negative for all of the above it did show progression of her known iliac DVT. New clots are now present in the left iliac, right iliac and extension into the common femoral vein. She is not currently actively bleeding. IVC filter was placed in July 2021 because at that time she had active uterine bleeding. Given the fact the patient is not actively bleeding and progression of clots, discussed with patient that a trial of anticoagulation may be appropriate at this point. Venous ultrasound by lower extremity shows Right deep veins:? Multifocal nonocclusive DVT in the right lower extremity extending from the right common femoral vein to the popliteal vein. Left deep veins:? Multifocal occlusive and nonocclusive DVT throughout the left lower extremity extending from the common femoral vein to the below-knee vessels. Ct abdomen and pelvis with contrast shows Vasculature: Infrarenal IVC filter noted in place. Probable trapped thrombus in the apex of the IVC filter. Thrombus in the IVC measuring up to 9 mm (axial series 22, image 31) similar prior exam, and additionally measuring up to 9 mm more inferiorly (series 22, image 36), not visualized on prior exam, extending into the proximal left common iliac vein. Thrombus now also visualized in the right common femoral vein and distal external iliac vein. We will start her on heparin GTT, start conservatively avoid bolus, low rate, while monitoring closely for any signs of bleeding in which case heparin drip can be stopped quickly and coagulopathy reversed. If she tolerates initiation of heparin anticoagulation, discharge with Lovenox may be a consideration. -Monitor hemoglobin every 4 hours, monitor hemodynamics Hemoccult stool monitor for bloody black stools Attempted to discuss this management plan with her outpatient oncologist, however Dr. Baugh is not available until Wednesday unfortunately. Patient understands the risks of initiating anticoagulation, however weighing the risk benefit ratio she is currently agreeable for a trial of heparin with transition to Lovenox if tolerated. Hemoglobin is currently at 8.0. Recent baseline between 8.4-9.6. Platelets currently at 122. (3) Endometrial carcinoma: (4) Lactic acidosis: Dehydration. Empiric ceftriaxone 1 g IV every 24 in the interim. Patient is not currently neutropenic No localizing signs or symptoms of infection at this point in time. (5) DVT, bilateral lower limbs: (6) IVC thrombosis: (7) UTI (urinary tract infection): Plan - Given her high clot burden, concern for IVC thrombosis, there is always a risk of small pieces of DVT passing through patent filters or collaterals, or developing a clot above the IVC, given her elevated lactic acid, her hypotension I will order CT angiogram to evaluate for possible pulmonary embolism -Given her elevated troponins, monitor troponin series again, and I will order a cardiac echo Attestations Medical Necessity Statement*: Patient requires hospitalization for IVC thrombosis, lower extremity DVTs, hypertension, multidrug-resistant UTI Coding Level of Care Code Acute Health Commissioner for Chg Fwd Diagnoses Hypotension I95.9 Progression of deep vein thrombosis (DVT) I82.409 Endometrial carcinoma C54.1 Lactic acidosis E87.20 DVT, bilateral lower limbs I82.403 IVC thrombosis I82.220 UTI (urinary tract infection) N39.0
--- NOTE | 2021-12-28 11:45 | ECG_ITS ---
[facility] Test Date: 2021-12-28 Pat Name: Francie Levine Department: Room: ICU07 Gender: Female Director Patient: : 1945 Requested By: Armando Slater Order Number: [id number] Reading MD: Julia Castellon M.D. Measurements Intervals [place] Rate: 93 P: 39 AR: 157 QRS: -32 QRSD: 87 T: 138 QT: 363 QTc: 453 Interpretive Statements SINUS RHYTHM WITH OCCASIONAL VENTRICULAR PREMATURE COMPLEXES LEFT AXIS DEVIATION [QRS AXIS < -30] ST DEVIATION AND MODERATE T-WAVE ABNORMALITY, CONSIDER LATERAL ISCHEMIA [-0.1+ mV T-WAVE IN I/aVL/V5/V6] Compared to ECG 12/28/2021 07:51:19 Ventricular premature complex(es) now present Myocardial infarct finding no longer present T-wave abnormality still present Possible ischemia still present Electronically Signed On 12-28-2021 21:57:30 CDT by Julia Castellon M.D. [id number]
--- NOTE | 2021-12-28 11:45 | USCV_ITS ---
Francie Levine Age: 76 Gender: F : 1945 Exam Date: 12/28/2021 13:21 Ordering Phys: Armando Slater MD Technologist: Exam Location: [facility] [place] Indication: Nstemi BP: 124 / 83 HR: 86 Rhythm: Sinus Technical Quality: Adequate MEASUREMENTS (Male / Female) Normal Values 2D ECHO LV Diastolic Diameter PLAX 4.2 cm 4.2 - 5.9 / 3.9 - 5.3 cm LV Systolic Diameter PLAX 2.3 cm IVS Diastolic Thickness 1.0 cm 0.6 - 1.0 / 0.6 - 0.9 cm IVS Systolic Thickness 1.1 cm LVPW Diastolic Thickness 1.3 cm 0.6 - 1.0 / 0.6 - 0.9 cm LVPW Systolic Thickness 1.3 cm LVOT Diameter 2.0 cm LV Ejection Fraction 2D Teich 76.6 % LV Ejection Fraction MOD 2C 65.7 % LV Ejection Fraction 2C AL 66.9 % LA Diameter 3.3 cm IVC Diameter 1.6 cm M-MODE Aortic Annulus Diameter 3.7 cm LA Ao Ratio MM 1.1 DOPPLER AV Peak Velocity 134.0 cm/s LVOT Peak Velocity 99.0 cm/s AV Area Cont Eq vti 2.3 cm squared AV Area Cont Eq pk 2.4 cm squared MV Area PHT 5.0 cm squared Mitral E to A Ratio 1.2 MV E' Velocity 56.4 cm/s Mitral E to MV E' Ratio 11.9 Mitral E to LV E' Lateral Ratio 12.2 Mitral E to LV E' Septal Ratio 11.7 TR Peak Velocity 153.0 cm/s TR Peak Gradient 9.4 mmHg TV Peak E Velocity 87.0 cm/s Right Atrial Pressure 3.0 mmHg Pulmonary Artery Systolic Pressu 12.4 mmHg FINDINGS Left Ventricle Normal left ventricular size, systolic function and mildly increased wall thickness, with no diagnostic regional wall motion abnormalities. Left ventricular ejection fraction is estimated at 65-70 %. Grade I diastolic dysfunction (abnormal relaxation filling pattern), normal to mildly elevated filling pressures. Right Ventricle Normal right ventricular size and systolic function. Right ventricular systolic pressure 12.4 mmHg. Right Atrium Normal right atrial size. Left Atrium Mildly increased left atrial size. Mitral Valve Moderate mitral annular calcification. Mildly thickened mitral valve. No mitral valve stenosis. Trace mitral valve regurgitation. Aortic Valve Probably trileaflet aortic valve. No aortic valve stenosis. Trace aortic valve regurgitation. Tricuspid Valve Structurally normal tricuspid valve. Trace tricuspid valve regurgitation. Pulmonic Valve Pulmonic valve not well visualized. Pericardium No pericardial effusion. Prominent epicardial fat. Aorta Normal size aortic root and proximal ascending aorta. IVC Normal sized inferior vena cava. CONCLUSIONS 1. Normal left ventricular size, systolic function and mildly increased wall thickness, with no diagnostic regional wall motion abnormalities. Left ventricular ejection fraction is estimated at 65-70 %. Grade I diastolic dysfunction (abnormal relaxation filling pattern), normal to mildly elevated filling pressures. 2. Normal right ventricular size and systolic function. 3. When compared to study dated 05/28/2017, there may not have been any significant change. Julia Castellon MD (Electronically Signed) Final Date: 29 December 2021 09:11 S
--- NOTE | 2021-12-28 11:45 | CTR_ITS ---
PROCEDURE INFORMATION: Exam: CTA Chest With Contrast Exam date and time: 12/28/2021 3:41 PM Age: 76 years old Clinical indication: Condition or disease; Other: Cancer; Additional info: Hisitory of endometerial CA, has high tumor burdon, ivc thro, thrombosis TECHNIQUE: Imaging protocol: Computed tomographic angiography of the chest with contrast. 3D rendering (Not supervised by radiologist): MIP and/or 3D reconstructed images were created by the technologist. Radiation optimization: All CT scans at this facility use at least one of these dose optimization techniques: automated exposure control; mA and/or kV adjustment per patient size (includes targeted exams where dose is matched to clinical indication); or iterative reconstruction. Contrast material: OMNIPAQUE 350; Contrast volume: 67 ml; Contrast route: INTRAVENOUS (IV); COMPARISON: CT chest abd pel w con* 10/22/2021 3:30 PM RADIATION DOSE METRICS: Total DLP (mGy-cm): 444.5 FINDINGS: Tubes, catheters and devices: Right-sided Port-A-Cath. Spinal stimulator. Pulmonary arteries: Normal. No pulmonary emboli. Aorta: Aortic tortuosity. Lungs: Minimal patchy bilateral ground-glass atelectasis. Emphysematous changes. Pleural spaces: Unremarkable. No pneumothorax. No pleural effusion. Heart: Coronary artery atherosclerotic calcifications. Lymph nodes: Several prominent subcentimeter short axis nonspecific mediastinal lymph nodes. Bones/joints: Several chronic compression fractures of the spine without retropulsion of bony fragments similar prior exam. Soft tissues: Unremarkable. CT/CT angio chest PE protcl [id number] IMPRESSION: 1. Negative for pulmonary embolus. 2. Coronary artery atherosclerotic calcifications. 3. Right-sided Port-A-Cath. 4. Minimal patchy bilateral ground-glass atelectasis. 5. Emphysematous changes. 6. Spinal stimulator. 7. Several chronic compression fractures of the spine without retropulsion of bony fragments similar prior exam. 8. Several prominent subcentimeter short axis nonspecific mediastinal lymph nodes.
[2021-12-28 12:36] LABS: Influenza A by IFA negative (Negative); Influenza B by IFA negative (Negative)
--- NOTE | 2021-12-28 14:12 | ECG_ITS ---
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 Measurements Intervals [place] Rate: 90 P: 53 ND: 158 QRS: -31 QRSD: 89 T: 133 QT: 362 QTc: 443 Interpretive Statements SINUS RHYTHM LEFT AXIS DEVIATION [QRS AXIS < -30] MODERATE T-WAVE ABNORMALITY, CONSIDER LATERAL ISCHEMIA [-0.1+ mV T-WAVE IN I/aVL/V5/V6] Compared to ECG 12/28/2021 12:59:32 Ventricular premature complex(es) no longer present T-wave abnormality still present Possible ischemia still present Electronically Signed On 12-29-2021 23:10:17 CDT by Julia Castellon M.D. [id number]
[2021-12-28 14:17] LABS: SARS Covid-2 Antigen Negative (Negative)
[2021-12-28 15:01] LABS: Basophils % 0.3 %; Hematocrit 23.3 % (37.0-47.0); Hemoglobin 7.3 g/dL (11.5-15.3); Lymphocytes # 1.2 10^3/uL (0.8-4.8); Mean Corpuscular HGB Conc 31.3 g/dL (30.0-36.0); Mean Corpuscular Volume 95.9 fl (81-99); Mean Platelet Volume 10.5 fL (7.4-10.4); Monocytes # 0.1 10^3/uL (0.2-0.9); Monocytes % 4.4 %; Neutrophils # 1.81 10^3/uL (1.8-7.7); Neutrophils % 56.4 %; Nucleated Red Blood Cells % 0 %; Platelet Count 95 10^3/cmm (130-400); Red Blood Count 2.43 10^6/uL (4.1-5.3); Red Cell Distribution Width 16.6 % (12.1-15.1); White Blood Count 3.2 10^3/uL (4.0-10.0)
[2021-12-28 15:13] LABS: Troponin(5th) Baseline 34 ng/L (0-10)
[2021-12-28 15:14] LABS: Lactate (Lactic Acid level) 1.4 mmol/L (0.5-2.2)
[2021-12-28 15:23] LABS: NT Pro B Type Natriuretic Pept 720 pg/mL (0-450)
[2021-12-28 16:33] LABS: Basophils % 0.7 %; Eosinophils % 0.7 %; Lymphocytes # 1.2 10^3/uL (0.8-4.8); Lymphocytes % 39.5 %; Mean Corpuscular HGB Conc 31.1 g/dL (30.0-36.0); Mean Corpuscular Hemoglobin 30.2 pg (28.0-34.0); Mean Corpuscular Volume 97.2 fl (81-99); Mean Platelet Volume 10.2 fL (7.4-10.4); Monocytes # 0.1 10^3/uL (0.2-0.9); Monocytes % 4.3 %; Neutrophils # 1.62 10^3/uL (1.8-7.7); Neutrophils % 53.8 %; Nucleated Red Blood Cells % 0 %; Platelet Count 72 10^3/cmm (130-400); Red Blood Count 2.12 10^6/uL (4.1-5.3); Red Cell Distribution Width 16.7 % (12.1-15.1)
[2021-12-28 16:38] LABS: Hemoglobin 6.4 g/dL (11.5-15.3)
[2021-12-28 16:39] LABS: Hematocrit 20.6 % (37.0-47.0)
[2021-12-28 17:04] LABS: Troponin 5 2HR 28.94 ng/L (0-10)
[2021-12-28 17:08] LABS: Troponin 5 2HR Delta -5.06 ABS# (0-10)
--- NOTE | 2021-12-28 18:22 | P.CONIM_ITS ---
Providers/Reason For Consult Consulting Physician/Specialty*: General Surgery/Aurelio Martinez MD, FACS, RPVI Reason for Consult*: GI bleed Attending Physician: Armando Slater MD Primary Care Provider: Nils Gambino DO History of Present Illness History of Present Illness Fracnie Levine is a 76 year old female She has a history of leukemia and received chemotherapy for this. Later in the course she was diagnosed with an endometrial cancer. She is on chemotherapy in attempt to shrink the tumor so she can underwent surgical resection. She was diagnosed with a DVT and IVC filter was placed, anticoagulation was contraindicated because of the ongoing endometrial bleeding. Since then endometrial bleeding stopped. She was never placed on anticoagulation. The patient presented to the hospital this time with dehydration, generalized weakness, elevated lactate, UTI. She received 2 L of fluids. Her hemoglobin was drawn and it was 8. She was diagnosed with nonocclusive DVT in bilateral lower extremities. She was started on anticoagulation, drop in hemoglobin was noted from 7.3 to 6.4. Of note, the specimen was drawn from the peripheral line and possibly may be diluted. It was not a peripheral stick. Per primary team, the patient has a positive occult blood test on multiple occasions. The patient does not have any external signs of bleeding. She has no blood in t he vomitus, she has no melena. No blood in the stool. No bleeding from the vagina as well. General surgery was consulted to perform upper and lower endoscopy for GI bleeding. Review of Systems Narrative: 10 point review of systems is negative except as per HPI 10 point review of systems is negative except as per HPI Medications/Allergies Home Medications Medication Instructions Recorded Confirmed Last Taken Type loratadine 10 mg tablet (Claritin) 10 mg PO DAILY PRN Allergy Symptoms 02/14/21 12/28/21 08/08/21 History hydrocodone 5 mg-acetaminophen 325 1 tab PO Q4H PRN Pain 07/15/21 12/28/21 2 Weeks Ago History mg tablet ~10/22/21 ondansetron 4 mg disintegrating 4 mg PO Q6H PRN nausea and 07/15/21 12/28/21 08/06/21 Rx tablet vomiting #14 tabs duloxetine 30 mg capsule,delayed 30 mg PO BEDTIME 08/05/21 12/28/21 11/04/21 History release hydroxyzine HCl 25 mg tablet 25 mg PO DAILY PRN Itching 09/17/21 12/28/21 11/04/21 History carboplatin 10 mg/mL intravenous See Rx Instructions .Route .COMPLEX 11/05/21 12/28/21 09/11/21 History solution fosaprepitant 150 mg intravenous 150 mg IV .BEFORE CHEMO 11/05/21 12/28/21 09/11/21 History solution (Emend (fosaprepitant)) lorazepam 0.5 mg tablet (Ativan) 0.5 mg PO .BEFORE CHEMO 11/05/21 12/28/21 Unknown History paclitaxel 6 mg/mL See Rx Instructions .Route .COMPLEX 11/05/21 12/28/21 09/11/21 History concentrate,intravenous palonosetron 0.25 mg/5 mL 0.25 mg IV .BEFORE CHEMO 11/05/21 12/28/21 Unknown History intravenous solution dexamethasone 4 mg tablet 4 mg PO .COMPLEX #10 tabs 11/19/21 12/28/21 Unknown Rx promethazine 25 mg tablet 25 mg PO Q6H PRN nausea and 12/01/21 12/28/21 Unknown Rx vomiting #20 tabs magnesium oxide 400 mg (241.3 mg 400 mg PO BID #60 tabs 12/06/21 12/28/21 Unknown Rx magnesium) tablet potassium chloride 20 mEq 40 meq PO BID #120 tabs 12/06/21 12/28/21 Unknown Rx tablet,extended release(part/cryst) Allergies Allergy/AdvReac Type Severity Reaction Status Date / Time naproxen Allergy ADR-Nausea Verified 12/23/21 08:57 Current Medications Generic Name Dose Route Start Last Admin Trade Name Dakotahq PRN Reason Stop Dose Admin Sodium Chloride 1,000 mls @ 100 mls/hr 12/28/21 06:45 12/28/21 17:07 Sodium Chloride 0.9% IV Infused .Q10H ANGIE Infusion Ceftriaxone Sodium 1,000 mg/ 50 mls @ 100 mls/hr 12/28/21 09:00 12/28/21 09:29 Sodium Chloride IV Infused Q24H ANGIE Infusion Protocol Linezolid 600 mg in 300 mls @ 300 mls/hr 12/28/21 09:00 12/28/21 10:34 Zyvox Premix IV Infused Q12H ANGIE Infusion Protocol Ondansetron HCl 4 mg 12/28/21 14:45 12/28/21 14:47 Ondansetron 2 Mg/Ml Sdv 2 Ml IVP 4 mg Q4H PRN Administration vomiting, or N/V if npo Sucralfate 1 gm 12/28/21 11:00 12/28/21 17:08 Sucralfate 1 Gm Tablet PO 1 gm AC&BEDTIME ANGIE Administration PFSH Acute PFSH: Medical History Acquired immunocompromised state Bilateral hydronephrosis Diffuse large B cell lymphoma Diagnosed 2018 Endometrial carcinoma On antineoplastic chemotherapy Ovarian cancer Followed in [place] Physical deconditioning Port-A-Cath in place Presence of IVC filter Right leg DVT (06/2021) GSV extending to CFV Status post insertion of nerve stimulator Vancomycin resistant Enterococcus infection Surgical History H/O cataract extraction bilateral eyes H/O tubal ligation History of colon resection History of left knee replacement History of removal of Port-a-Cath History of total right knee replacement History of ureter stent Bilateral, due to obstruction related to malignancy S/P cholecystectomy Status post hysteroscopy 06/11/2021- hysteroscopy with D&C via myosure performed by Dr. Victoria at [facility] Family History Mother , at age Hypertension Cancer pancreatic Father , at age 72 Colon cancer 70 Denies family history of Ovarian cancer Diabetes Clotting disorder Heart disease Hyperlipidemia Breast cancer Anesthesia complication Bleeding disorder Uterine cancer Thyroid condition Stroke Social History Smoking and tobacco status: former smoker (smoked x 15 years) Second hand smoke exposure: No Alcohol intake: never Adopted: No Caregiver/support person: Yes Lives independently: Yes Household members: significant other Housing: House Marital status: / service: No Current occupational status: retired Current occupational exposures/hazards: No Pets and animals: Yes History of recent travel: No Leisure activites: exercise Sexually active: No Current gender identity: Female Cheli/Faith: Pentecostalism Vitals/I&O/Wt Last Vital Signs Temp 98.4 F 12/28/21 17:34 Pulse 96 12/28/21 17:34 Resp 20 H 12/28/21 17:34 BP 112/69 12/28/21 17:34 Pulse Ox 93 12/28/21 17:34 O2 Del Method 12/28/21 05:45 O2 Flow Rate 1.5 12/28/21 03:17 12/28/21 12/28/21 12/28/21 06:59 14:59 22:59 Intake Total 3000 / 3000 479.167 / 292.980 0691.5 / 1557.667 Balance 3000 / 3000 479.167 / 341.874 1624.5 / 1557.667 Weight last 48 hrs Weight 193 lb 9 oz Weight 194 lb Physical Exam Narrative: general: No acute distress Psych: [AAOx3] Eyes: [sclerae are white, pale] Head/ENT: [normocephalic, symmetric] CV: [regular] pulse, [], no JVD Lungs: [symmetrical chest rise] Abdomen: [soft, ND] Ext: [no obvious traumatic deformities] Skin: warm, pale Data : 12/28/21 16:00 12/28/21 02:00 Micro: Microbiology 12/28/21 02:40 Blood Culture - Preliminary Blood SPECIMEN COLLECTED 12/28/21 02:16 Blood Culture - Preliminary Blood SPECIMEN COLLECTED A&P Assessment and plan (1) UTI (urinary tract infection): (2) IVC thrombosis: (3) DVT, bilateral lower limbs: (4) Endometrial carcinoma: (5) Anemia following use of chemotherapeutic drug: Plan This is a complex patient. She does have chronic anemia which is most likely related to ongoing chemotherapy. She has no signs of active GI bleeding otherwise at this time. The drop in hemoglobin is very small, it may be easily attributed to hemodilution as well as improper specimen collection. No indications for urgent endoscopy today. While she may indeed benefit from EGD and colonoscopy to ensure the there is no other source for her chronic anemia, the best timing for this procedure needs to be determined. If she manifests with acute GI bleeding, it will change the decision making, however, right now she is very stable and has no signs of bleeding. I think the best course of action is to transfuse her and reassess tomorrow to determine the best time for EGD and colonoscopy. This was discussed with Dr. Slater. I will check out the patient tomorrow to Dr. Marquez and he will be able to follow on her progress. Coding Level of Care Code Acute Vice President Of Development for Chg Fwd Diagnoses UTI (urinary tract infection) N39.0 IVC thrombosis I82.220 DVT, bilateral lower limbs I82.403 Endometrial carcinoma C54.1 Anemia following use of chemotherapeutic drug D64.81
--- NOTE | 2021-12-28 18:40 | PC.NURSE ---
NPO at midnight for possible endoscopy tomorrow, awaiting labs.
[2021-12-28] MEDS: metoclopramide 5 mg/mL SDV 2 mL IVP (19:03)
[2021-12-28] MEDS: pantoprazole 40 mg SDV IVP (20:08)
[2021-12-28] MEDS: duloxetine 30 mg Capsule PO (20:08)
[2021-12-28 20:12] LABS: Basophils % 0.3 %; Eosinophils % 0.6 %; Hematocrit 25.3 % (37.0-47.0); Hemoglobin 8.2 g/dL (11.5-15.3); Lymphocytes # 1.1 10^3/uL (0.8-4.8); Lymphocytes % 32.9 %; Mean Corpuscular HGB Conc 32.4 g/dL (30.0-36.0); Mean Corpuscular Hemoglobin 29.7 pg (28.0-34.0); Mean Corpuscular Volume 91.7 fl (81-99); Mean Platelet Volume 9.9 fL (7.4-10.4); Monocytes # 0.1 10^3/uL (0.2-0.9); Monocytes % 4.4 %; Neutrophils # 1.94 10^3/uL (1.8-7.7); Neutrophils % 60.9 %; Nucleated Red Blood Cells % 0 %; Platelet Count 77 10^3/cmm (130-400); Red Blood Count 2.76 10^6/uL (4.1-5.3); Red Cell Distribution Width 17.1 % (12.1-15.1); White Blood Count 3.2 10^3/uL (4.0-10.0)
[2021-12-28 20:25] LABS: Partial Thromboplastin Time 26.4 SECONDS (23.9-36.7)
[2021-12-28 20:31] LABS: Troponin 5 6HR 28.96 ng/L (0-10)
[2021-12-28 20:38] LABS: Troponin 5 6HR Delta -5.04 ng/L (0-12)
[2021-12-28] MEDS: sodium chloride 0.9% (100 ml) 100 ML 50 ML (21:01)
[2021-12-29] VITALS (86 sets, daily range): BP systolic 101–144; BP diastolic 55–87; PULSE 66–94; RESP 10–25; TEMP 36.5–36.7; O2SAT 79–100
[2021-12-29] MEDS: sodium chloride 0.9% 1,000 ML 100 ML IV ×2 (03:05→12:32)
[2021-12-29 03:47] LABS: Bacillus cereus group Not Detected (NOT DETECT); Bacillus subtillis group Not Detected (NOT DETECT); Corynebacterium Not Detected (NOT DETECT); Cutibacterium acnes (P.acnes) Not Detected (NOT DETECT); Enterococcus Not Detected (NOT DETECT); Enterococcus faecalis Not Detected (NOT DETECT); Enterococcus faecium Not Detected (NOT DETECT); Lactobacillus species Not Detected (NOT DETECT); Listeria Not Detected (NOT DETECT); Listeria monocytogenes Not Detected (NOT DETECT); Micrococcus Not Detected (NOT DETECT); Pan Candida Not Detected (NOT DETECT); Pan Gram-Negative Not Detected (NOT DETECT); Staphylococcus epidermidis Detected (NOT DETECT); Staphylococcus lugdunensis Not Detected (NOT DETECT); Staphylococcus species Detected (NOT DETECT); Streptococcus agalactiae Not Detected (NOT DETECT); Streptococcus anginosus group Not Detected (NOT DETECT); Streptococcus pneumoniae Not Detected (NOT DETECT); Streptococcus pyogenes Not Detected (NOT DETECT); Streptococcus species Not Detected (NOT DETECT); mecA Detected (NOT DETECT); mecC Not Detected (NOT DETECT)
[2021-12-29 05:29] LABS: Basophils % 0.3 %; Eosinophils % 0.7 %; Hematocrit 26.8 % (37.0-47.0); Hemoglobin 8.7 g/dL (11.5-15.3); Lymphocytes # 1.2 10^3/uL (0.8-4.8); Lymphocytes % 38.4 %; Mean Corpuscular HGB Conc 32.5 g/dL (30.0-36.0); Mean Corpuscular Hemoglobin 28.9 pg (28.0-34.0); Mean Platelet Volume 10.3 fL (7.4-10.4); Monocytes # 0.1 10^3/uL (0.2-0.9); Monocytes % 4.3 %; Neutrophils # 1.67 10^3/uL (1.8-7.7); Neutrophils % 55.3 %; Nucleated Red Blood Cells % 0 %; Platelet Count 65 10^3/cmm (130-400); Red Blood Count 3.01 10^6/uL (4.1-5.3); Red Cell Distribution Width 19.1 % (12.1-15.1)
[2021-12-29 05:50] LABS: Anion Gap 15.9 (5-19); Blood Urea Nitrogen 13 mg/dL (8-23); Carbon Dioxide 18 mmol/L (22-29); Chloride 99 mmol/L (98-107); Sodium 130 mmol/L (136-145)
[2021-12-29 05:51] LABS: Alanine Aminotransferase 12 U/L (0-33); Albumin Level 2.9 g/dL (3.5-5.2); Alkaline Phosphatase 59 U/L (35-105); Aspartate Amino Transferase 14 U/L (0-32); Calcium 7.8 mg/dL (8.5-10.5); Globulin 2.8 g/dL (1.3-4.6); Glucose 85 mg/dL (65-115); Magnesium 1.3 mg/dL (1.7-2.3); Osmolality Calculated 269 mOsm/kg (285-295); Total Bilirubin 1.2 mg/dL (0.15-1.2); Total Protein 5.7 g/dL (6.6-8.7)
[2021-12-29 05:59] LABS: Potassium 2.9 mmol/L (3.5-5.1)
[2021-12-29] MEDS: lidocaine 1% 5 ML in potassium chloride premix 100 ML 25 ML IV (06:16)
[2021-12-29] MEDS: pantoprazole 40 mg SDV IVP ×2 (07:10→20:54)
[2021-12-29 08:38] LABS: Basophils % 0.6 %; Eosinophils % 0.9 %; Hematocrit 26.4 % (37.0-47.0); Hemoglobin 8.6 g/dL (11.5-15.3); Lymphocytes # 1.4 10^3/uL (0.8-4.8); Lymphocytes % 43.7 %; Mean Corpuscular HGB Conc 32.6 g/dL (30.0-36.0); Mean Corpuscular Hemoglobin 28.7 pg (28.0-34.0); Mean Platelet Volume 10.6 fL (7.4-10.4); Monocytes # 0.2 10^3/uL (0.2-0.9); Neutrophils # 1.57 10^3/uL (1.8-7.7); Neutrophils % 48.6 %; Nucleated Red Blood Cells % 0 %; Platelet Count 68 10^3/cmm (130-400); Red Cell Distribution Width 19.1 % (12.1-15.1); White Blood Count 3.2 10^3/uL (4.0-10.0)
[2021-12-29] MEDS: potassium chloride ER 20 mEq Tablet 40 MEQ PO ×2 (08:47→13:41)
[2021-12-29] MEDS: cefTRIAXone 1,000 MG in sodium chloride 0.9% (plus) 50 ML 100 MG IV (08:48)
[2021-12-29] MEDS: linezolid premix 600 MG/300 ML PREMIX 300 MG IV ×2 (08:51→20:54)
[2021-12-29] MEDS: magnesium sulfate premix 2 GM/50 ML PIGGYBACK IV (08:58)
[2021-12-29] MEDS: nystatin powder 15 gm Btl 1 APPLIC TOPICAL (09:57)
--- NOTE | 2021-12-29 11:58 | PM.PN ---
Subjective Subjective: Patient endorses generalized malaise. Denies fevers, chills, chest pain or shortness of breath. Denies melena. We discussed at length her difficult clinical situation. Medications: Reviewed: Yes Vitals/I&O/Wt Last Vital Signs Temp 98.0 F 12/29/21 04:30 Pulse 76 12/29/21 09:00 Resp 17 12/29/21 09:00 BP 121/80 12/29/21 09:00 Pulse Ox 97 12/29/21 09:00 O2 Del Method 12/29/21 06:00 O2 Flow Rate 2 12/28/21 23:45 12/28/21 12/29/21 12/29/21 22:59 06:59 14:59 Intake Total 1728.5 / 2207.667 807 / 3014.667 505 / 505 Balance 1728.5 / 2207.667 807 / 3014.667 505 / 505 Weight last 48 hrs Weight 87.798 kg Weight 87.997 kg Physical Exam Narrative: General: Patient is awake. Frail appearing. Head: Normocephalic. Atraumatic. EOM intact. Neck: No JVD. Cardiovascular: RRR. No gallops. No murmurs. Lungs: Clear to auscultation, no use of accessory muscles, no crackles or wheezes. Skin: No jaundice. No rashes. Abdomen: Normal bowel sounds, abdomen soft and nontender. Genito Urinary: Genital exam not performed since complaints not related. Rectal: Rectal exam not performed since no symptoms indicated blood loss. Extremeties: No cyanosis or clubbing. Musculoskeletal: 5/5 strength, normal range of motion, no swollen or erythematous joints. Neurological: Moves all 4 extremities. No myoclonus. Data : 12/29/21 08:15 12/29/21 05:21 Micro: Microbiology 12/28/21 04:25 Urine Culture - Final Urine,Clean Catch 12/28/21 02:40 Blood Culture - Preliminary Blood Staphylococcus epidermidis 12/28/21 02:16 Blood Culture - Preliminary Blood NEGATIVE TO DATE 12/28/21 09:50 Occult Blood (FIT) - Final Stool Routine Collection A&P Assessment and plan (1) DVT, bilateral lower limbs: History IVC filter placement in July 2021 at which time she was having active uterine bleeding Patient noted in October 2021 to have a iliac vein DVT around her IVC thrombus. CT on admission shows progression DVT with new clots in the left iliac, right iliac, and extension into the common femoral vein. Venous Doppler ultrasound shows multifocal nonocclusive DVT in the right lower extremity extending from the right common femoral vein to the popliteal vein, as well as multifocal occlusive and nonocclusive DVT throughout the left lower extremity extending from the common femoral vein to the below knee vessels. Hemoglobin dropped with heparin challenge Patient being evaluated for need for endoscopy May consider repeat heparin challenge, risk and benefits discussed with patient (2) IVC thrombosis: Management as above (3) Progression of deep vein thrombosis (DVT): Management as above (4) Anemia following use of chemotherapeutic drug: Associated with thrombocytopenia, leukopenia Recent baseline hemoglobin 8.4-9.6 Acute on chronic anemia Status post 2 packed red blood cells on 12/28 Trend hemoglobin (5) UTI (urinary tract infection): Urine culture with mixed maurilio Continue ceftriaxone Continue linezolid for now (6) Endometrial carcinoma: Associated with chemotherapy-induced pancytopenia Her oncologist, Dr. Baugh is reportedly not available until Wednesday. Keep outpatient follow-up Palliative care consultation (7) Hypotension: Hypotension has resolved, she is now normotensive (8) Lactic acidosis: Resolved (9) Hypokalemia: Replace potassium (10) Metabolic acidosis: Trend renal panel (11) Hypomagnesemia: Replace magnesium (12) Myocardial injury: Denies chest pain Telemetry monitoring Transthoracic echocardiogram reviewed, negative for acute findings Attestations Medical Necessity Statement*: Patient requires ongoing hospitalization for treatment of her progressive clot burden, evaluation for repeat heparin challenge, acute on chronic anemia requiring transfusion, consideration of endoscopy evaluation, electrolyte correction and ongoing supportive care with expected hospitalization across 2 midnights. Highly complex patient. 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
[2021-12-29 12:08] LABS: Basophils % 0.7 %; Hematocrit 26.5 % (37.0-47.0); Hemoglobin 8.6 g/dL (11.5-15.3); Lymphocytes # 1.2 10^3/uL (0.8-4.8); Lymphocytes % 40.7 %; Mean Corpuscular HGB Conc 32.5 g/dL (30.0-36.0); Mean Corpuscular Hemoglobin 28.5 pg (28.0-34.0); Mean Corpuscular Volume 87.7 fl (81-99); Mean Platelet Volume 9.9 fL (7.4-10.4); Monocytes # 0.2 10^3/uL (0.2-0.9); Monocytes % 6.3 %; Neutrophils # 1.52 10^3/uL (1.8-7.7); Neutrophils % 50.6 %; Nucleated Red Blood Cells % 0 %; Platelet Count 65 10^3/cmm (130-400); Red Blood Count 3.02 10^6/uL (4.1-5.3); Red Cell Distribution Width 19.4 % (12.1-15.1)
--- NOTE | 2021-12-29 12:37 | PC.CHAP ---
Pastoral Care Encounter/Spiritual Assessment Type of Contact [] Declined fabrication inspector visit [] Patient/Family/Request visit [] Outpatient visit [] Follow-up visit [] Physician referral [] Code/Alert [x] Routine visit [] Staff referral [] Actively dying [] Patient sleeping [] Family support [] [] Out of room [] Palliative care [] [x] Receiving care in room [] Pre-surgical visit [] Trauma [] Long length of stay [x] ICU visit [x] Other: PT agreed with prayer outside room Relational/Emotional Strength [] Patient feels connected with others/family/visitors/staff [] Distress [] Loneliness/isolation [] Abandonment Spirituality of Patient [] Person of Cheli [] Attends Lutheran of their Cheli [] Believes in Prayer [] Reads Bible or Nondenominational materials [] There are Spiritual issues to be addressed Business Solution Analyst Interventions [x] Prayer [] Active listening [] Non-anxious presence [] Spiritual/emotional support [] Crisis/trauma care [] Spiritual counseling [] Bereavement support [] Provided bereavement packet [] Provided Bible/devotional materials [] Provided toy/stuffed animal, coloring book to patient or family member [] Provided Communion [] Anointing/[place] [] Salvation [x] Completed spiritual assessment [] Other: Impact on Illness or Injury [] Angry [] Fearful [] Anxious [] Often cries [] Exhaustion [] Unable to work [] Unable to attend latter day [] Unable to walk/stand [] Unable to read [] Unable to drive [] Unable to eat/drink [] Unable to sleep [] Unable to be with family [] Patient intubated [] Other: Summary Time spent with patient
[2021-12-29] MEDS: sucralfate 1 gm Tablet PO ×2 (16:00→20:54)
[2021-12-29 16:15] LABS: Basophils % 0.3 %; Hematocrit 26.9 % (37.0-47.0); Hemoglobin 8.9 g/dL (11.5-15.3); Lymphocytes # 1.2 10^3/uL (0.8-4.8); Lymphocytes % 38.4 %; Mean Corpuscular HGB Conc 33.1 g/dL (30.0-36.0); Mean Corpuscular Hemoglobin 28.8 pg (28.0-34.0); Mean Corpuscular Volume 87.1 fl (81-99); Mean Platelet Volume 10.1 fL (7.4-10.4); Monocytes # 0.2 10^3/uL (0.2-0.9); Monocytes % 6.2 %; Neutrophils # 1.62 10^3/uL (1.8-7.7); Neutrophils % 53.1 %; Nucleated Red Blood Cells % 0 %; Platelet Count 70 10^3/cmm (130-400); Red Blood Count 3.09 10^6/uL (4.1-5.3); Red Cell Distribution Width 19.3 % (12.1-15.1); White Blood Count 3.1 10^3/uL (4.0-10.0)
--- NOTE | 2021-12-29 16:55 | P.PN_ITS ---
Subjective Subjective: Patient was seen and examined today. No evidence of hematemesis yet she does have nonbloody diarrhea. Medications: Reviewed: Yes Vitals/I&O/Wt Last Vital Signs Temp 98.0 F 12/29/21 04:30 Pulse 70 12/29/21 16:15 Resp 18 12/29/21 16:15 BP 121/69 12/29/21 16:15 Pulse Ox 93 12/29/21 12:45 O2 Del Method 12/29/21 06:00 O2 Flow Rate 2 12/28/21 23:45 12/29/21 12/29/21 12/29/21 06:59 14:59 22:59 Intake Total 807 / 3014.667 1810 / 1810 Balance 807 / 3014.667 181 / 0 Weight last 48 hrs Weight 193 lb 9 oz Weight 194 lb Physical Exam Narrative: Patient is conscious alert oriented X3 No apparent distress BMI 33.2 Head and neck examination PERRLA no masses no cervical lymphadenopathy no jaundice Right upper chest PowerPort in place Abdomen nontender nondistended soft no organomegaly guarding or rigidity/no signs of peritonitis Obese Data : 12/29/21 16:05 12/29/21 05:21 Micro: Microbiology 12/28/21 04:25 Urine Culture - Final Urine,Clean Catch 12/28/21 02:40 Blood Culture - Preliminary Blood Staphylococcus epidermidis 12/28/21 02:16 Blood Culture - Preliminary Blood NEGATIVE TO DATE 12/28/21 09:50 Occult Blood (FIT) - Final Stool Routine Collection A&P Assessment and plan (1) Anemia following use of chemotherapeutic drug: From surgical standpoint of view after history taking physical examination and reviewing the chart. I do not see an urgent indication for endoscopy at this point. Likely the patient has anemia due to chemotherapy and also anemia of chronic disease. Patient was seen and evaluated by me back in October 19, 2021. And my recommendation that the patient follow-up as an outpatient to schedule EGD and colonoscopy whenever appropriate. Assurance and education All questions have been answered and all concerns have been addressed to patient's satisfaction. 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
[2021-12-29] MEDS: duloxetine 30 mg Capsule PO (20:54)
[2021-12-30] VITALS (47 sets, daily range): BP systolic 94–161; BP diastolic 61–90; PULSE 69–131; RESP 11–21; TEMP 36.5–36.9; O2SAT 90–99
[2021-12-30 03:03] LABS: Basophils % 0.3 %; Hematocrit 26.8 % (37.0-47.0); Hemoglobin 8.8 g/dL (11.5-15.3); Lymphocytes # 1.4 10^3/uL (0.8-4.8); Lymphocytes % 45.8 %; Mean Corpuscular HGB Conc 32.8 g/dL (30.0-36.0); Mean Corpuscular Hemoglobin 29.2 pg (28.0-34.0); Mean Platelet Volume 10.2 fL (7.4-10.4); Monocytes # 0.2 10^3/uL (0.2-0.9); Monocytes % 6.5 %; Neutrophils # 1.41 10^3/uL (1.8-7.7); Neutrophils % 45.8 %; Nucleated Red Blood Cells % 0 %; Platelet Count 63 10^3/cmm (130-400); Red Blood Count 3.01 10^6/uL (4.1-5.3); Red Cell Distribution Width 19.1 % (12.1-15.1); White Blood Count 3.1 10^3/uL (4.0-10.0)
[2021-12-30 03:20] LABS: Albumin Level 3.1 g/dL (3.5-5.2); Anion Gap 15.9 (5-19); Blood Urea Nitrogen 9 mg/dL (8-23); Calcium 8.2 mg/dL (8.5-10.5); Carbon Dioxide 19 mmol/L (22-29); Chloride 102 mmol/L (98-107); Glucose 74 mg/dL (65-115); Magnesium 1.5 mg/dL (1.7-2.3); Phosphorus 2.2 mg/dL (2.5-4.5); Potassium 3.9 mmol/L (3.5-5.1); Sodium 133 mmol/L (136-145)
[2021-12-30] MEDS: pantoprazole 40 mg SDV IVP ×2 (07:46→20:45)
[2021-12-30] MEDS: loperamide 2 mg Capsule PO ×2 (08:04→20:46)
[2021-12-30] MEDS: cefTRIAXone 1,000 MG in sodium chloride 0.9% (plus) 50 ML 100 MG IV (08:04)
[2021-12-30] MEDS: sucralfate 1 gm Tablet PO ×3 (10:14→20:45)
--- NOTE | 2021-12-30 10:26 | PM.PN ---
Subjective Subjective: Patient endorses generalized malaise and diarrhea. Reports rectal discomfort from diarrhea. Reports she did not sleep very well at all last night. Denies fevers, chills, shortness of breath, or signs of bleeding. Was evaluated by general surgery, with feedback that she does not need inpatient endoscopy. I discussed in detail her current difficult clinical situation. She wants to try anticoagulation again. We discussed the risks associated with anticoagulation, namely bleeding with subsequent TN, stroke, or . She endorsed understanding. Medications: Reviewed: Yes Vitals/I&O/Wt Last Vital Signs Temp 97.7 F 12/30/21 04:00 Pulse 76 12/30/21 08:00 Resp 14 12/30/21 08:00 BP 119/75 12/30/21 08:00 Pulse Ox 96 12/30/21 07:00 O2 Del Method 12/30/21 04:00 O2 Flow Rate 2 12/28/21 23:45 12/29/21 12/30/21 12/30/21 22:59 06:59 14:59 Intake Total 1486.667 / 3296.667 170 / 170 Output Total 600 / 600 200 / 800 Balance 886.667 / 2696.667 -200 / 2496.667 170 / 170 Physical Exam Narrative: General: Patient is awake. Frail appearing. Lying in bed. Head: Normocephalic. Atraumatic. EOM intact. Neck: No JVD. Cardiovascular: RRR. No gallops. No murmurs. Lungs: Breath sounds are diminished at the bases bilaterally, no use of accessory muscles, no crackles or wheezes. Skin: No jaundice. No rashes. Abdomen: Normal bowel sounds, abdomen soft and nontender. Genito Urinary: Genital exam not performed since complaints not related. Rectal: Rectal exam not performed since no symptoms indicated blood loss. Extremeties: No cyanosis or clubbing. Musculoskeletal: No swollen or erythematous joints. Neurological: Moves all 4 extremities. No myoclonus. Data : 12/30/21 02:52 12/30/21 02:52 Micro: Microbiology 12/28/21 02:40 Blood Culture - Preliminary Blood Staphylococcus epidermidis 12/28/21 04:25 Urine Culture - Final Urine,Clean Catch A&P Assessment and plan (1) DVT, bilateral lower limbs: History IVC filter placement in July 2021 due to active uterine bleeding at that time which has now resolved. Patient noted in October 2021 to have a iliac vein DVT around her IVC thrombus. CT on admission shows progression DVT with new clots in the left iliac, right iliac, and extension into the common femoral vein. Venous Doppler ultrasound shows multifocal nonocclusive DVT in the right lower extremity extending from the right common femoral vein to the popliteal vein, as well as multifocal occlusive and nonocclusive DVT throughout the left lower extremity extending from the common femoral vein to the below knee vessels. Hemoglobin dropped with heparin challenge on 12/29, patient was transfused additional 2 pRBCs after HGB dropping to 6.4. Hemoglobin has remained stable off of anticoagulation. No indication for endoscopy or general surgery. Patient opts to try heparin challenge again Will transfuse 2 platelets prior to starting heparin No heparin bolus Plan to start low-dose heparin at 10 units/kg/hr after PLT transfusion Trend CBC closely after starting heparin (2) IVC thrombosis: Management as above (3) Progression of deep vein thrombosis (DVT): Management as above (4) Anemia following use of chemotherapeutic drug: Associated with thrombocytopenia, leukopenia Recent baseline hemoglobin 8.4-9.6 Acute on chronic anemia Status post 2 packed red blood cells on 12/28 Trend hemoglobin as above (5) UTI (urinary tract infection): Urine culture with mixed maurilio Continue ceftriaxone Discontinue linezolid (6) Endometrial carcinoma: Associated with chemotherapy-induced pancytopenia Her oncologist, Dr. Baugh is reportedly not available until Wednesday, anticipate possible consult tomorrow Keep outpatient follow-up Palliative care consultation pending (7) Hypokalemia: Replace potassium as needed (8) Metabolic acidosis: Persistent, likely from malignancy Trend renal panel (9) Hypomagnesemia: Replace magnesium as needed (10) Myocardial injury: Denies chest pain Telemetry monitoring Transthoracic echocardiogram reviewed, negative for acute findings (11) Diarrhea: C. difficile is negative Suspect secondary to chemo Imodium as needed (12) Hypotension: Resolved (13) Lactic acidosis: Resolved Plan DVT prophylaxis: Trial of heparin drip today as above CODE STATUS: Limited code Attestations Medical Necessity Statement*: Patient requires ongoing hospitalization for treatment of her extensive clot burden with plans to transfuse platelets, monitor electrolytes, and to start IV heparin drip today for which she is high risk for acute blood loss requiring close monitoring, telemetry, and serial labs. 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
--- NOTE | 2021-12-30 12:05 | PC.CHAP ---
Pastoral Care Encounter/Spiritual Assessment Type of Contact [] Declined channel layer visit [] Patient/Family/Request visit [] Outpatient visit [] Follow-up visit [] Physician referral [] Code/Alert [x] Routine visit [] Staff referral [] Actively dying [] Patient sleeping [] Family support [] [] Out of room [] Palliative care [] [] Receiving care in room [] Pre-surgical visit [] Trauma [] Long length of stay [x] ICU visit [] Other: Relational/Emotional Strength [] Patient feels connected with others/family/visitors/staff [] Distress [] Loneliness/isolation [] Abandonment Spirituality of Patient [] Person of Cheli [] Attends Alevism of their Cheli [] Believes in Prayer [] Reads Bible or Quaker materials [] There are Spiritual issues to be addressed Wire Frame Maker Interventions [x] Prayer [] Active listening [] Non-anxious presence [] Spiritual/emotional support [] Crisis/trauma care [] Spiritual counseling [] Bereavement support [] Provided bereavement packet [] Provided Bible/devotional materials [] Provided toy/stuffed animal, coloring book to patient or family member [] Provided Communion [] Anointing/[place] [] Salvation [] Completed spiritual assessment [] Other: Impact on Illness or Injury [] Angry [] Fearful [] Anxious [] Often cries [] Exhaustion [] Unable to work [] Unable to attend mormonism [] Unable to walk/stand [] Unable to read [] Unable to drive [] Unable to eat/drink [] Unable to sleep [] Unable to be with family [] Patient intubated [] Other: Summary Time spent with patient
[2021-12-30 13:24] LABS: Basophils % 0.5 %; Hematocrit 23.5 % (37.0-47.0); Hemoglobin 7.7 g/dL (11.5-15.3); Lymphocytes # 0.7 10^3/uL (0.8-4.8); Lymphocytes % 32.2 %; Mean Corpuscular HGB Conc 32.8 g/dL (30.0-36.0); Mean Corpuscular Hemoglobin 28.8 pg (28.0-34.0); Mean Platelet Volume 9.6 fL (7.4-10.4); Monocytes # 0.1 10^3/uL (0.2-0.9); Monocytes % 5.9 %; Neutrophils # 1.21 10^3/uL (1.8-7.7); Neutrophils % 59.9 %; Nucleated Red Blood Cells % 0 %; Platelet Count 139 10^3/cmm (130-400); Red Blood Count 2.67 10^6/uL (4.1-5.3); Red Cell Distribution Width 18.6 % (12.1-15.1)
[2021-12-30 13:40] LABS: Slide Review Slide Review Perform
--- NOTE | 2021-12-30 14:03 | PM.MISC ---
Miscellaneous Note Purpose of Documentation: Palliative Care Consult Note- I had seen pt on day of discharge from last hospitalization in October. Note: Pt with extensive uterine cancer burden receiving combination chemo with taxol and carboplatin inorder to lesser tumor burden inorder to undergo surgical resection. Unfortunately pt's course has been complicated by adverse effects of chemo resuting in hospitalization after most chemo treatments. She is currently hospitalized for similar effects of generalized weakness, diarrhea, dehydraqtion and electrolye deficiencies. She has been also found to have increaed clot burden in illac veins. Consult was placed to palliative care to assist in management of pt's symptoms. Pt met only shortly with Palliative Care SW and stated she had no appetite. Denied pain or SOB. She reports fatigue and sleeping a lot. Recommendations: 1. To prevent hospitalization after each chemotherapy - administer fluids and electrolytes 5-10 days post chemo, perhaps checking labs every other day and planning to intervene. - Can cancer treatment center schedule at the treatment center or is there an outpt infusion center? - continue higher dose oral magnesium and Kcl daily (see below) 2. DVT - most likely due from CA itself. Pt can always receive blood but clotting can be irreversible. Recommend EGD/colonoscopy and then coumadin treatment for treatment of DVT until surgical resection. Pt may not tolerate outpt prep for EGD/colon and would recommend inpatient. 3. Cancer related fatigue - some evidence found ritalin or provigil to be effect. Recommend trial of ritalin 5- 10 mg daily early am and then lunchtime. 4. Anorexia due to cancer - megace high dose- generic suspension 400 mg/10 ml. 400mg bid. 5. electrolyte deficiencies -Magnesium- pt with moderate depletion at 1.5, may need to convert to extended release oral magnesium chloride approx 70-80 mg of elemental magnesium. Mag oxide may contribute to her diarhea symtoms. If replacing via IV may take 4 gm daily to normalize. -potassium- will need continued replacement and close monitoring since the carboplatin chemo is both Mg and K depleting. 6. Thank you for allowing the palliative care team to be involved in the are of this patient. We will assist with coordination of care for hospitalization prevention. Pt will be perfect candidate to follow as outpt. Will follow with you during hospitalization. Joe Quintanilla D.O.
[2021-12-30] MEDS: heparin drip 25,000 UNIT/500 ML PREMIX 10 UNIT IV (14:08)
--- NOTE | 2021-12-30 17:35 | PC.NURSE ---
Patient given 2 units of platelets per Dr. Daley. Before trying another heparin challenge. Heparin challenge initiated at 4pm. Heparin running at 10mL/hr per Dr. Daley, no bolus given. Awaiting PTT and CBC results at 1800 to determine if heparin gtt needs to remain running or discontinued.
[2021-12-30 17:45] LABS: Partial Thromboplastin Time 39.3 SECONDS (23.9-36.7)
[2021-12-30 18:10] LABS: Basophils % 0.7 %; Eosinophils % 0.7 %; Hematocrit 25.4 % (37.0-47.0); Hemoglobin 8.4 g/dL (11.5-15.3); Lymphocytes # 1.2 10^3/uL (0.8-4.8); Lymphocytes % 41.8 %; Mean Corpuscular HGB Conc 33.1 g/dL (30.0-36.0); Mean Corpuscular Hemoglobin 29.1 pg (28.0-34.0); Mean Corpuscular Volume 87.9 fl (81-99); Mean Platelet Volume 10.1 fL (7.4-10.4); Monocytes # 0.2 10^3/uL (0.2-0.9); Monocytes % 6.8 %; Neutrophils # 1.44 10^3/uL (1.8-7.7); Nucleated Red Blood Cells % 0 %; Platelet Count 148 10^3/cmm (130-400); Red Blood Count 2.89 10^6/uL (4.1-5.3); Red Cell Distribution Width 18.6 % (12.1-15.1); White Blood Count 2.9 10^3/uL (4.0-10.0)
--- NOTE | 2021-12-30 18:17 | PC.NURSE ---
Called Dr. Daley to report PTT and CBC results from heparin challenge, patient tolerating well. Received orders to increase heparin gtt to 12mL/hr and maintain at that rate as long as patient tolerates overnight. Also ordered 2 units of RBC to have ready to transfuse if patients hemoglobin dropped below 7. Repeat labs in 6 hours. Watch for any s/s of bleeding.
[2021-12-30] MEDS: duloxetine 30 mg Capsule PO (20:45)
[2021-12-31] VITALS (44 sets, daily range): BP systolic 90–138; BP diastolic 53–82; PULSE 69–119; RESP 9–22; TEMP 36–36.8; O2SAT 74–100
[2021-12-31 00:44] LABS: Basophils % 0.3 %; Eosinophils % 0.6 %; Hematocrit 26.4 % (37.0-47.0); Hemoglobin 8.3 g/dL (11.5-15.3); Lymphocytes # 1.4 10^3/uL (0.8-4.8); Lymphocytes % 46.1 %; Mean Corpuscular HGB Conc 31.4 g/dL (30.0-36.0); Mean Corpuscular Hemoglobin 27.9 pg (28.0-34.0); Mean Corpuscular Volume 88.9 fl (81-99); Monocytes # 0.2 10^3/uL (0.2-0.9); Monocytes % 6.8 %; Neutrophils % 45.2 %; Nucleated Red Blood Cells % 0 %; Platelet Count 141 10^3/cmm (130-400); Red Blood Count 2.97 10^6/uL (4.1-5.3); Red Cell Distribution Width 18.3 % (12.1-15.1); White Blood Count 3.1 10^3/uL (4.0-10.0)
[2021-12-31 00:59] LABS: Partial Thromboplastin Time 46.7 SECONDS (23.9-36.7)
[2021-12-31 04:21] LABS: Basophils % 0.3 %; Eosinophils % 0.3 %; Hematocrit 24.6 % (37.0-47.0); Hemoglobin 7.7 g/dL (11.5-15.3); Lymphocytes # 1.4 10^3/uL (0.8-4.8); Lymphocytes % 48.6 %; Mean Corpuscular HGB Conc 31.3 g/dL (30.0-36.0); Mean Corpuscular Hemoglobin 28.2 pg (28.0-34.0); Mean Corpuscular Volume 90.1 fl (81-99); Mean Platelet Volume 9.9 fL (7.4-10.4); Monocytes # 0.2 10^3/uL (0.2-0.9); Monocytes % 6.9 %; Neutrophils # 1.23 10^3/uL (1.8-7.7); Neutrophils % 42.9 %; Nucleated Red Blood Cells % 0.7 %; Platelet Count 131 10^3/cmm (130-400); Red Blood Count 2.73 10^6/uL (4.1-5.3); Red Cell Distribution Width 18.5 % (12.1-15.1); White Blood Count 2.9 10^3/uL (4.0-10.0)
[2021-12-31 04:42] LABS: Albumin Level 2.9 g/dL (3.5-5.2); Anion Gap 15.5 (5-19); Blood Urea Nitrogen 9 mg/dL (8-23); Calcium 7.8 mg/dL (8.5-10.5); Carbon Dioxide 19 mmol/L (22-29); Chloride 103 mmol/L (98-107); Glucose 74 mg/dL (65-115); Magnesium 1.5 mg/dL (1.7-2.3); Phosphorus 2.7 mg/dL (2.5-4.5); Potassium 3.5 mmol/L (3.5-5.1); Sodium 134 mmol/L (136-145)
[2021-12-31 07:57] LABS: Basophils % 0.4 %; Eosinophils % 0.4 %; Hematocrit 23.7 % (37.0-47.0); Hemoglobin 7.7 g/dL (11.5-15.3); Lymphocytes # 1.2 10^3/uL (0.8-4.8); Lymphocytes % 48.1 %; Mean Corpuscular HGB Conc 32.5 g/dL (30.0-36.0); Mean Corpuscular Hemoglobin 28.9 pg (28.0-34.0); Mean Corpuscular Volume 89.1 fl (81-99); Mean Platelet Volume 9.9 fL (7.4-10.4); Monocytes # 0.2 10^3/uL (0.2-0.9); Monocytes % 9.1 %; Neutrophils # 0.99 10^3/uL (1.8-7.7); Neutrophils % 40.8 %; Nucleated Red Blood Cells % 0.8 %; Platelet Count 119 10^3/cmm (130-400); Red Blood Count 2.66 10^6/uL (4.1-5.3); Red Cell Distribution Width 18.2 % (12.1-15.1); White Blood Count 2.4 10^3/uL (4.0-10.0)
[2021-12-31 08:17] LABS: Partial Thromboplastin Time 49.9 SECONDS (23.9-36.7)
--- NOTE | 2021-12-31 08:54 | PC.SOCIAL ---
IMM Update pg 2 of IMM updated and reviewed w/ patient. Copy provided. Copy dated, initialed and placed in chart.
[2021-12-31] MEDS: pantoprazole 40 mg SDV IVP (10:20)
[2021-12-31] MEDS: sucralfate 1 gm Tablet PO (10:20)
[2021-12-31] MEDS: cefTRIAXone 1,000 MG in sodium chloride 0.9% (plus) 50 ML 100 MG IV (10:20)
--- NOTE | 2021-12-31 11:21 | PM.PN ---
Subjective Subjective: Patient was seen and examined this morning, currently he has denied any chest pain shortness of breath nausea vomiting. Hemoglobin is slowly downtrending, hemoglobin this morning is 7.7, she continues to be on Fixed-dose heparin drip, FOBT is positive. Continued risk and benefit of anticoagulation was discussed with the patient, she wants to continue with anticoagulation for now, she says that if possible she would prefer to be on anticoagulation as outpatient also, her options are either low-dose oral NOAC, or subcutaneous Lovenox, depending upon how she does on continued anticoagulation while inpatient. Given the fact that she has IVC filter in place, will help us, in case she fails to tolerate anticoagulation, though IVC filter itself can be a site for new thrombus. Medications: Reviewed: Yes Medication Review Details: Generic Name Dose Route Start Last Admin Trade Name Freq PRN Reason Stop Dose Admin Duloxetine HCl 30 mg 12/28/21 21:00 12/30/21 20:45 Duloxetine 30 Mg Capsule PO 30 mg BEDTIME ANGIE Administration Ceftriaxone Sodium 1,000 mg/ 50 mls @ 100 mls/ hr 12/28/21 09:00 12/31/21 10:20 Sodium Chloride IV 100 mls/hr Q24H ANGIE Administration Protocol Heparin Sodium/Sod ium Chloride 25,000 unit in 50 0 mls @ 0 mls/hr 12/30/21 14:00 12/30/21 18:17 Heparin Drip IV 6.83 unit/kg/hr .Q0M ANGIE 12 mls/hr Titration Protocol Per Protocol Loperamide HCl 2 mg 12/30/21 07:50 12/30/21 20:46 Loperamide 2 Mg Capsule PO 2 mg QID PRN Administration DIARRHEA Metoclopramide HCl 5 mg 12/28/21 17:46 12/28/21 19:03 Metoclopramide 5 Mg/Ml Sdv 2 Ml IVP 5 mg Q4H PRN Administration NAUSEA AND VOMITI NG Nystatin 1 applic 12/28/21 18:14 12/29/21 09:57 Nystatin Powder 15 Gm Btl TOPICAL 1 applic BID PRN Administration Redness Ondansetron HCl 4 mg 12/28/21 14:45 12/28/21 22:09 Ondansetron 2 Mg /Ml Sdv 2 Ml IVP 4 mg Q4H PRN Administration vomiting, or N/V if npo Pantoprazole Sodiu m 40 mg 12/28/21 20:00 12/31/21 10:20 Pantoprazole 40 Mg Sdv IVP 40 mg Q12H ANGIE Administration Sucralfate 1 gm 12/28/21 11:00 12/31/21 10:20 Sucralfate 1 Gm Tablet PO 1 gm AC&BEDTIME ANGIE Administration Vitals/I&O/Wt Last Vital Signs Temp 96.8 F L 12/31/21 09:00 Pulse 75 12/31/21 09:00 Resp 16 12/31/21 09:00 BP 99/57 12/31/21 09:00 Pulse Ox 97 12/31/21 09:00 O2 Del Method 12/31/21 09:00 O2 Flow Rate 2 12/28/21 23:45 12/30/21 12/31/21 12/31/21 22:59 06:59 14:59 Intake Total 281.5 / 966.5 Output Total 300 / 300 200 / 500 Balance -18.5 / 666.5 -200 / 466.5 Physical Exam Const: COMMON NORMALS: patient oriented x3 Resp: COMMON NORMALS: clear to auscultation bilaterally EFFORT & INSPECTION: Yes symmetric chest movement AUSCULTATION: clear to auscultation bilaterally Cardio: COMMON NORMALS: regular rate, regular rhythm, S1 normal heart sound present, S2 normal heart sound present, No gallops present (Cardio), No murmurs present (Cardio), No rub (Cardio) and Peripheral pulses 2+ throughout RATE: regular rate RHYTHM: regular rhythm HEART SOUNDS: S1 normal heart sound present and S2 normal heart sound present PERIPHERAL PULSES: Peripheral pulses 2+ throughout GI: COMMON NORMALS: Normal to inspection, nondistended, normoactive bowel sounds present, Soft to palpation, non-tender, No hepatosplenomegaly present and no masses AUSCULTATION: Yes normoactive bowel sounds PALPATION: Yes Soft to palpation and Yes No hepatosplenomegaly present RECTAL EXAM: deferred Neuro: COMMON NORMALS: patient oriented x3 Data : 12/31/21 07:46 12/31/21 04:04 Micro: Microbiology 12/28/21 02:40 Blood Culture - Preliminary Blood Staphylococcus epidermidis Staphylococcus sp coag neg 12/29/21 17:28 C.difficile Toxin B Gene (PCR) - Final Stool Routine Collection A&P Assessment and plan (1) Hypotension: Patient presenting today with hypotension with a past medical history of similar admissions noted particularly after chemotherapy sessions. On admission systolic blood pressure was in the 70s, with IV fluid resuscitation, at the time of my assessment her blood pressure is 101/65. Certainly dehydration remains a possibility given and otherwise nontoxic exam. Continue IV fluid normal saline at 100 cc an hour Will check orthostatics She denies any current GI losses, no bleeding at any site Recently diagnosed with a urinary tract infection, urine culture showing E. coli, she was treated with cephalexin which appears to be susceptible isolate. She was asymptomatic as far as urinary symptoms are concerned. She denies any dysuria today. However her lactate is noted to be grossly elevated at 6.0. Has a a history of VRE Enterococcus UTI Blood culture has been ordered. Chest x-ray without any consolidation. CT of the abdomen has ruled out current obstructive uropathy. No hydronephrosis noted. Her stents appear to be in good position. Continue vancomycin, Rocephin (2) Progression of deep vein thrombosis (DVT): Patient has a past medical history. Also noted in October 2021 was iliac vein DVT around her IVC thrombus. CT of the abdomen was performed today to evaluate for any obstructive pyelonephritis, retroperitoneal bleeding or bowel ischemia given elevated lactate, while the study was negative for all of the above it did show progression of her known iliac DVT. New clots are now present in the left iliac, right iliac and extension into the common femoral vein. She is not currently actively bleeding. IVC filter was placed in July 2021 because at that time she had active uterine bleeding. Given the fact the patient is not actively bleeding and progression of clots, discussed with patient that a trial of anticoagulation may be appropriate at this point. Venous ultrasound by lower extremity shows Right deep veins:? Multifocal nonocclusive DVT in the right lower extremity extending from the right common femoral vein to the popliteal vein. Left deep veins:? Multifocal occlusive and nonocclusive DVT throughout the left lower extremity extending from the common femoral vein to the below-knee vessels. Ct abdomen and pelvis with contrast shows Vasculature: Infrarenal IVC filter noted in place. Probable trapped thrombus in the apex of the IVC filter. Thrombus in the IVC measuring up to 9 mm (axial series 22, image 31) similar prior exam, and additionally measuring up to 9 mm more inferiorly (series 22, image 36), not visualized on prior exam, extending into the proximal left common iliac vein. Thrombus now also visualized in the right common femoral vein and distal external iliac vein. We will start her on heparin GTT, start conservatively avoid bolus, low rate, while monitoring closely for any signs of bleeding in which case heparin drip can be stopped quickly and coagulopathy reversed. If she tolerates initiation of heparin anticoagulation, discharge with Lovenox may be a consideration. -Monitor hemoglobin every 4 hours, monitor hemodynamics Hemoccult stool monitor for bloody black stools Attempted to discuss this management plan with her outpatient oncologist, however Dr. Baugh is not available until Wednesday unfortunately. Patient understands the risks of initiating anticoagulation, however weighing the risk benefit ratio she is currently agreeable for a trial of heparin with transition to Lovenox if tolerated. Hemoglobin is currently at 8.0. Recent baseline between 8.4-9.6. Platelets currently at 122. (3) Endometrial carcinoma: (4) Lactic acidosis: Dehydration. Empiric ceftriaxone 1 g IV every 24 in the interim. Patient is not currently neutropenic No localizing signs or symptoms of infection at this point in time. (5) DVT, bilateral lower limbs: (6) IVC thrombosis: (7) UTI (urinary tract infection): Plan 76 year old female with past medical history of non-Hodgkin lymphoma, received R-CHOP, now in remission, recent history of endometrial ca with involvement of abdominal LN and omentum .Currently on neoadjuvant chemotherapy with 3 weekly carboplatin and Taxol since July 2021, with post chemo course usually complicated by dehydration, diarrhea and hypotension.?She is planned to undergo hysterectomy once tumor burden shrinks.? She was also diagnosed with right leg DVT and she has IVC filter placed in july 2021. As she had active endometrial bleeding at that time, she was not considered a candidate for anticogulation. More recently in november she had ureteral stents by Dr. Burr in [place], for recent history of bilateral ureteral obstruction and hydronephrosis. She presents to the ER c/o dehydration which she attributes to her chemotherapy one week ago. Assessment: Hypotension likely secondary to dehydration, secondary to chemotherapy effect: Low clinical suspicion for: Sepsis: Has responded well to fluid resuscitation. Progression of DVT History of endometrial carcinoma History of non-Hodgkin's lymphoma History of ureteral stent for history of bilateral ureteral obstruction with hydronephrosis Anemia: Multifactorial: Post chemo effect, GI bleed: Leukopenia likely secondary to chemotherapy Thrombocytopenia: Secondary to chemotherapy: S/p 2 units platelet transfusion. Plan: CTA chest: Has not shown any pulmonary embolism, no consolidation. Blood culture: Staph epi: 2/ bottles: C. difficile PCR negative , Urine culture negative Given her overall immunocompromise status, as well as presence of port, puts her always at risk for sepsis, but currently clinically she does not have sepsis. For now we will continue empirically on ceftriaxone. Continue heparin drip at fixed rate for now monitor CBC every 8 hours. Patient will continue to follow with oncology as outpatient, goals of care has been extensively discussed with the patient. Attestations Medical Necessity Statement*: Patient is still in hospital for management of DVT, anemia, thrombocytopenia. Time Spent in Patient Care: Greater than 35 minutes (>than 50% of time spent in counselling and/or direct pt care on unit). Critical Care Time: The high probability of a clinically significant, sudden or life threatening deterioration of the patient's [] system(s) required my full and direct attention, intervention and personal management. The critical care time is as shown. This time is in addition to time spent performing any reported procedures but includes the following: [x] Data and vital sign review and interpretation [x] Patient assessment, examination and intervention [x] Documentation [x] Medication orders and management Critical Care Time (min): 30 Coding Level of Care Code Acute Network Contract Manager for Chg Fwd Exam Expanded Problem Focused Diagnoses Hypotension I95.9 Progression of deep vein thrombosis (DVT) I82.409 Endometrial carcinoma C54.1 Lactic acidosis E87.20 DVT, bilateral lower limbs I82.403 IVC thrombosis I82.220 UTI (urinary tract infection) N39.0
--- NOTE | 2021-12-31 12:42 | PC.CHAP ---
Pastoral Care Encounter/Spiritual Assessment Type of Contact [] Declined bank sales and service manager visit [] Patient/Family/Request visit [] Outpatient visit [] Follow-up visit [] Physician referral [] Code/Alert [x] Routine visit [] Staff referral [] Actively dying [] Patient sleeping [x] Family support [] [] Out of room [] Palliative care [] [] Receiving care in room [] Pre-surgical visit [] Trauma [] Long length of stay [x] ICU visit [] Other: Relational/Emotional Strength [] Patient feels connected with others/family/visitors/staff [] Distress [] Loneliness/isolation [] Abandonment Spirituality of Patient [] Person of Cheli [] Attends Samaritan of their Cheli [] Believes in Prayer [] Reads Bible or Episcopalian materials [] There are Spiritual issues to be addressed Residential Supervisor Interventions [x] Prayer [] Active listening [] Non-anxious presence [] Spiritual/emotional support [] Crisis/trauma care [] Spiritual counseling [] Bereavement support [] Provided bereavement packet [] Provided Bible/devotional materials [] Provided toy/stuffed animal, coloring book to patient or family member [] Provided Communion [] Anointing/[place] [] Salvation [x] Completed spiritual assessment [] Other: Impact on Illness or Injury [] Angry [] Fearful [] Anxious [] Often cries [] Exhaustion [] Unable to work [] Unable to attend mosque [] Unable to walk/stand [] Unable to read [] Unable to drive [] Unable to eat/drink [] Unable to sleep [] Unable to be with family [] Patient intubated [] Other: Summary Time spent with patient
[2021-12-31 14:11] LABS: Basophils % 0.4 %; Eosinophils % 0.4 %; Hematocrit 23.4 % (37.0-47.0); Hemoglobin 7.8 g/dL (11.5-15.3); Lymphocytes # 0.9 10^3/uL (0.8-4.8); Lymphocytes % 40.7 %; Mean Corpuscular HGB Conc 33.3 g/dL (30.0-36.0); Mean Platelet Volume 10.1 fL (7.4-10.4); Monocytes # 0.2 10^3/uL (0.2-0.9); Monocytes % 9.1 %; Neutrophils # 1.12 10^3/uL (1.8-7.7); Neutrophils % 48.5 %; Nucleated Red Blood Cells % 0 %; Platelet Count 116 10^3/cmm (130-400); Red Blood Count 2.69 10^6/uL (4.1-5.3); Red Cell Distribution Width 18.1 % (12.1-15.1); White Blood Count 2.3 10^3/uL (4.0-10.0)
--- NOTE | 2021-12-31 15:29 | PM.CONSULT ---
Providers/Reason For Consult Consulting Physician/Specialty*: Hospice and palliative care Reason for Consult*: Assistance with symptom control and avoidance of further hospitalizations Requesting Physician: Hospitalist Dr. Mark Daley Attending Physician: Denzel Bell MD Primary Care Provider: Nils Gambino DO History of Present Illness History of Present Illness Francie Levine is a 76 year old female with uterine cancer who initially received care at [facility]. Patient has been required to have chemo therapy to reduce tumor burden prior to surgical resection. Unfortunately the patient has suffered with multiple side effects of chemotherapy and has not been able to complete enough cycles for shrinkage. Patient has transferred her care to [place] at this time due to the amount of travel required. Patient has seen Dr. Brandon harp at [facility]. Upon releasing her care he recommended a dose reduction of 25%. Here at [facility] patient has received lower dose treatment within a 3-week timeframe. Unfortunately after the second lower dose treatment she is again hospitalized. Her symptoms remain the same she becomes extremely weak and fatigued. Prior to this hospitalization she went to the bathroom and as she got into bed she could not get her leg into bed and she slid to the floor. On admission she appears dehydrated her electrolytes are severely diminished she remains pancytopenic and as of late she is developed DVTs. Admission shows the DVTs worsening Review of Systems Narrative: Patient denies weight loss or gain. Patient has severe diarrhea postchemotherapy. Patient's had a significant change in her taste with complaints that everything tastes like sugar. She also has decreased appetite mostly because of the dose to. She suffers from extreme fatigue lack of energy. Patient denies pain she denies any skin lesions or rashes. Any headaches dizziness or confusion. Considering all that she has been through she denies any depression or anxiety. Patient complains of being cold all the time. Medications/Allergies Home Medications Medication Instructions Recorded Confirmed Last Taken Type loratadine 10 mg tablet (Claritin) 10 mg PO DAILY PRN Allergy Symptoms 02/14/21 12/28/21 08/08/21 History hydrocodone 5 mg-acetaminophen 325 1 tab PO Q4H PRN Pain 07/15/21 12/28/21 2 Weeks Ago History mg tablet ~10/22/21 ondansetron 4 mg disintegrating 4 mg PO Q6H PRN nausea and 07/15/21 12/28/21 08/06/21 Rx tablet vomiting #14 tabs duloxetine 30 mg capsule,delayed 30 mg PO BEDTIME 08/05/21 12/28/21 11/04/21 History release hydroxyzine HCl 25 mg tablet 25 mg PO DAILY PRN Itching 09/17/21 12/28/21 11/04/21 History carboplatin 10 mg/mL intravenous See Rx Instructions .Route .COMPLEX 11/05/21 12/28/21 09/11/21 History solution fosaprepitant 150 mg intravenous 150 mg IV .BEFORE CHEMO 11/05/21 12/28/21 09/11/21 History solution (Emend (fosaprepitant)) lorazepam 0.5 mg tablet (Ativan) 0.5 mg PO .BEFORE CHEMO 11/05/21 12/28/21 Unknown History paclitaxel 6 mg/mL See Rx Instructions .Route .COMPLEX 11/05/21 12/28/21 09/11/21 History concentrate,intravenous palonosetron 0.25 mg/5 mL 0.25 mg IV .BEFORE CHEMO 11/05/21 12/28/21 Unknown History intravenous solution dexamethasone 4 mg tablet 4 mg PO .COMPLEX #10 tabs 11/19/21 12/28/21 Unknown Rx promethazine 25 mg tablet 25 mg PO Q6H PRN nausea and 12/01/21 12/28/21 Unknown Rx vomiting #20 tabs magnesium oxide 400 mg (241.3 mg 400 mg PO BID #60 tabs 12/06/21 12/28/21 Unknown Rx magnesium) tablet potassium chloride 20 mEq 40 meq PO BID #120 tabs 12/06/21 12/28/21 Unknown Rx tablet,extended release(part/cryst) Allergies Allergy/AdvReac Type Severity Reaction Status Date / Time naproxen Allergy ADR-Nausea Verified 12/23/21 08:57 Current Medications Generic Name Dose Route Start Last Admin Trade Name Freq PRN Reason Stop Dose Admin Duloxetine HCl 30 mg 12/28/21 21:00 12/30/21 20:45 Duloxetine 30 Mg Capsule PO 30 mg BEDTIME ANGIE Administration Ceftriaxone Sodium 1,000 mg/ 50 mls @ 100 mls/hr 12/28/21 09:00 12/31/21 11:49 Sodium Chloride IV Infused Q24H ANGIE Infusion Protocol Heparin Sodium/Sodium Chloride 25,000 unit in 500 mls @ 0 mls/hr 12/30/21 14:00 12/30/21 18:17 Heparin Drip IV 6.83 unit/kg/hr .Q0M ANGIE 12 mls/hr Titration Protocol Per Protocol Loperamide HCl 2 mg 12/30/21 07:50 12/30/21 20:46 Loperamide 2 Mg Capsule PO 2 mg QID PRN Administration DIARRHEA Metoclopramide HCl 5 mg 12/28/21 17:46 12/28/21 19:03 Metoclopramide 5 Mg/Ml Sdv 2 Ml IVP 5 mg Q4H PRN Administration NAUSEA AND VOMITING Nystatin 1 applic 12/28/21 18:14 12/29/21 09:57 Nystatin Powder 15 Gm Btl TOPICAL 1 applic BID PRN Administration Redness Ondansetron HCl 4 mg 12/28/21 14:45 12/28/21 22:09 Ondansetron 2 Mg/Ml Sdv 2 Ml IVP 4 mg Q4H PRN Administration vomiting, or N/V if npo PFSH Acute PFSH: Medical History Acquired immunocompromised state Bilateral hydronephrosis Diffuse large B cell lymphoma Diagnosed 2018 Endometrial carcinoma On antineoplastic chemotherapy Ovarian cancer Followed in [place] Physical deconditioning Port-A-Cath in place Presence of IVC filter Right leg DVT (06/2021) GSV extending to CFV Status post insertion of nerve stimulator Vancomycin resistant Enterococcus infection Surgical History H/O cataract extraction bilateral eyes H/O tubal ligation History of colon resection History of left knee replacement History of removal of Port-a-Cath History of total right knee replacement History of ureter stent Bilateral, due to obstruction related to malignancy S/P cholecystectomy Status post hysteroscopy 06/11/2021- hysteroscopy with D&C via myosure performed by Dr. Victoria at [facility] Family History Mother , at age Hypertension Cancer pancreatic Father , at age 72 Colon cancer 72 Denies family history of Ovarian cancer Diabetes Clotting disorder Heart disease Hyperlipidemia Breast cancer Anesthesia complication Bleeding disorder Uterine cancer Thyroid condition Stroke Social History Smoking and tobacco status: former smoker (smoked x 15 years) Second hand smoke exposure: No Alcohol intake: never Adopted: No Caregiver/support person: Yes Lives independently: Yes Household members: significant other Housing: House Marital status: / service: No Current occupational status: retired Current occupational exposures/hazards: No Pets and animals: Yes History of recent travel: No Leisure activites: exercise Sexually active: No Current gender identity: Female Cheli/Caodaism: Zoroastrianism Vitals/I&O/Wt Last Vital Signs Temp 96.8 F L 12/31/21 09:00 Pulse 82 12/31/21 15:00 Resp 14 12/31/21 15:00 BP 122/72 12/31/21 15:00 Pulse Ox 95 12/31/21 14:00 O2 Del Method 12/31/21 12:00 O2 Flow Rate 2 12/28/21 23:45 12/31/21 12/31/21 12/31/21 06:59 14:59 22:59 Intake Total 50 / 50 Output Total 200 / 500 Balance -200 / 466.5 50 / 50 Physical Exam Narrative: Patient is seen and examined with RN at bedside. appears her stated age of 76. She is bald due to chemotherapy. She is overweight. Neurologic: Patient is alert and oriented to person place time and situation H EENT head is normocephalic atraumatic pupils equal round reactive to light and accommodation extraocular muscles are intact there is no scleral icterus nasopharyngeal mucosa moist and pink without lesions or exudates neck is supple JVD no edema carotid bruits or lymphadenopathy heart is regular normal S1-S2 without murmurs clicks gallops or rubs lungs are clear to auscultation abdomen is obese soft nontender nondistended positive bowel sounds extremities left lower extremity does appear swollen this is nonpitting there is no pain to palpation. Data : 12/31/21 13:37 12/31/21 04:04 Micro: Microbiology 12/28/21 02:40 Blood Culture - Preliminary Blood Staphylococcus epidermidis Staphylococcus sp coag neg 12/29/21 17:28 C.difficile Toxin B Gene (PCR) - Final Stool Routine Collection A&P Assessment and plan (1) Diarrhea: (2) Hypomagnesemia: (3) Hypokalemia: (4) IVC thrombosis: (5) DVT, bilateral lower limbs: (6) Endometrial carcinoma: (7) Malignant cachexia: (8) Palliative care by specialist: Plan [facility] We reviewed patient's chart together and made plans to prevent further hospitalization and to help with current symptoms. To prevent hospitalization after each chemotherapy: administer fluids and electrolytes post chemo, perhaps checking labs every other day incluidng magnesium. She has a moderate degree of hypomagnesium. Currently will give higher doses IV mag sulfate and add mag-tab that is higher elemental dose of magnesium in a form that will reduce magnesium wasting in the kidneys. DVT - most likely due from CA itself.? If there is a concern for GI bleed do recommend EGD and colonoscopy as an inpatient since patient will not tolerate outpatient prep.? Patient should be put placed on Lovenox or Coumadin long-term. NOACs have not been proven in cancer related hypercoagulable states. Cancer related fatigue - some evidence found ritalin or provigil to be effect.? Recommend trial of ritalin 5 10 mg daily early am and then lunchtime. Anorexia due to cancer -as discussed with Cristina COAL CRUSHER OPERATOR will order marinol diarrhea - agree with immodium and use as outpt too Thank you for allowing the palliative care team to be involved in the are of this patient.? We will assist with coordination of care for hospitalization prevention.? Pt will be perfect candidate to follow as outpt. Will follow with you during hospitalization. Joe Quintanilla D.O. Coding Level of Care Code Acute Executive Assistant To President for Chg Fwd Diagnoses Diarrhea R19.7 Hypomagnesemia E83.42 Hypokalemia E87.6 IVC thrombosis I82.220 DVT, bilateral lower limbs I82.403 Endometrial carcinoma C54.1 Malignant cachexia R64 Palliative care by specialist Z51.5
[2021-12-31] MEDS: dronabinol 2.5 mg Capsule 5 MG PO (16:11)
[2021-12-31] MEDS: magnesium sulfate premix 4 GM/100 ML PREMIX IV (16:12)
[2021-12-31] MEDS: magnesium lactate 84 mg Tablet PO (16:58)
--- NOTE | 2021-12-31 18:33 | PC.NURSE ---
PT HAS HAD AN UNEVENTFUL SHIFT FOR ME. PT HAS NOT HAD ANY COMPLAINTS OF PAIN. PT HAS BEEN UP TO THE BEDSIDE COMMODE AND HAS DONE WELL WITH THIS. PT HAS HAD SOME WEAKNESS BUT OTHER THEN THAT PT HAS DONE WELL. PT HAS NO REQUESTS AT THIS TIME. WILL CONTINUE TO MONITOR.
[2021-12-31 19:33] LABS: Partial Thromboplastin Time 49.7 SECONDS (23.9-36.7)
[2021-12-31] MEDS: duloxetine 30 mg Capsule PO (20:09)
[2021-12-31 21:17] LABS: Basophils % 0.4 %; Eosinophils % 0.4 %; Hematocrit 24.1 % (37.0-47.0); Hemoglobin 7.8 g/dL (11.5-15.3); Lymphocytes # 1.2 10^3/uL (0.8-4.8); Lymphocytes % 49.6 %; Mean Corpuscular HGB Conc 32.4 g/dL (30.0-36.0); Mean Corpuscular Hemoglobin 28.9 pg (28.0-34.0); Mean Corpuscular Volume 89.3 fl (81-99); Mean Platelet Volume 9.7 fL (7.4-10.4); Monocytes # 0.2 10^3/uL (0.2-0.9); Monocytes % 8.4 %; Neutrophils # 1.02 10^3/uL (1.8-7.7); Neutrophils % 40.8 %; Nucleated Red Blood Cells % 0 %; Platelet Count 115 10^3/cmm (130-400); Red Cell Distribution Width 18.1 % (12.1-15.1); White Blood Count 2.5 10^3/uL (4.0-10.0)
[2022-01-01] VITALS (19 sets, daily range): BP systolic 95–121; BP diastolic 55–75; PULSE 73–100; RESP 10–18; TEMP 36.2–36.7; O2SAT 89–97
[2022-01-01 02:49] LABS: Basophils % 0.4 %; Hematocrit 25.1 % (37.0-47.0); Lymphocytes # 1.3 10^3/uL (0.8-4.8); Lymphocytes % 53.2 %; Mean Corpuscular HGB Conc 31.9 g/dL (30.0-36.0); Mean Corpuscular Hemoglobin 28.6 pg (28.0-34.0); Mean Corpuscular Volume 89.6 fl (81-99); Mean Platelet Volume 10.1 fL (7.4-10.4); Monocytes # 0.2 10^3/uL (0.2-0.9); Monocytes % 8.7 %; Neutrophils % 37.3 %; Nucleated Red Blood Cells % 0.8 %; Platelet Count 120 10^3/cmm (130-400); White Blood Count 2.5 10^3/uL (4.0-10.0)
[2022-01-01 03:19] LABS: Partial Thromboplastin Time 50.3 SECONDS (23.9-36.7)
[2022-01-01 03:27] LABS: Alanine Aminotransferase 8 U/L (0-33); Alkaline Phosphatase 62 U/L (35-105); Anion Gap 14.5 (5-19); Aspartate Amino Transferase 9 U/L (0-32); Blood Urea Nitrogen 9 mg/dL (8-23); Carbon Dioxide 21 mmol/L (22-29); Chloride 101 mmol/L (98-107); Globulin 2.2 g/dL (1.3-4.6); Glucose 82 mg/dL (65-115); Magnesium 2.2 mg/dL (1.7-2.3); Osmolality Calculated 274 mOsm/kg (285-295); Potassium 3.5 mmol/L (3.5-5.1); Sodium 133 mmol/L (136-145); Total Bilirubin 0.3 mg/dL (0.15-1.2); Total Protein 5.2 g/dL (6.6-8.7)
[2022-01-01 03:58] LABS: Neutrophils # 0.94 10^3/uL (1.8-7.7)
[2022-01-01] MEDS: dronabinol 2.5 mg Capsule 5 MG PO ×2 (08:05→17:55)
[2022-01-01] MEDS: heparin drip 25,000 UNIT/500 ML PREMIX 12 UNIT IV (08:05)
[2022-01-01] MEDS: methylphenidate 10 mg Tablet 5 MG PO ×2 (08:30→13:23)
[2022-01-01 08:34] LABS: Partial Thromboplastin Time 49.5 SECONDS (23.9-36.7)
--- NOTE | 2022-01-01 08:40 | P.PN_ITS ---
Subjective Subjective: Case reviewed. Patient denies any complaints of pain. She reports no blood in her stool, nosebleeds, black or tarry stool preceding her admission. She reports no shortness of breath or chest discomfort. Medications: Reviewed: Yes Vitals/I&O/Wt Last Vital Signs Temp 97.2 F L 01/01/22 07:58 Pulse 73 01/01/22 07:58 Resp 12 01/01/22 07:58 BP 105/61 01/01/22 07:58 Pulse Ox 94 01/01/22 07:58 O2 Del Method 01/01/22 07:58 O2 Flow Rate 2 12/28/21 23:45 12/31/21 01/01/22 01/01/22 22:59 06:59 14:59 Intake Total 100 / 150 453.6 / 453.6 Output Total 300 / 300 300 / 600 Balance -200 / -150 -300 / -450 453.6 / 453.6 Physical Exam Narrative: General exam is a pale appearing female, no current distress, conversive Neck is supple no lymphadenopathy thyromegaly Cardiovascular regular rate and rhythm without murmur Lungs clear no wheezing or crackles Abdomen is soft nontender positive bowel sounds Extremities no cyanosis clubbing or edema Data : 01/01/22 02:15 01/01/22 02:15 A&P Assessment and plan (1) DVT, bilateral lower limbs: Bilateral lower extremity DVTs noted. She was placed on a heparin drip. She has been monitored closely. She was transfused several units early in her hospital course and hemoglobin has been low but no evidence of gross bleeding. Discontinue heparin today, transition to Lovenox 1 mg/kg twice daily. Plan on discharge on this medicine if she remains stable. I discussed the risks of bleeding with her which she is understanding and accepting of and agrees with the plan going forward to hopefully transition her home on this medication. (2) Anemia: Confusing picture. Certainly she has chronic anemia from malignancy and treatment, with worsened anemia from chemotherapy. 1 stool was tested and heme positive, but did not appear bloody or tarry/dark from description. 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 Linezolid has been discontinued. Currently still on Rocephin. (5) Hypokalemia: Supplemented and normal today (6) Hypomagnesemia: Supplemented and normal Plan Leukopenia, thrombocytopenia. Secondary to chemotherapy. ANC still greater than 500. Heme positive stool. Initiate Protonix. No plans for EGD at this point. General surgery has been consulted previous. Positive blood culture, 2/4 bottles with 2 organisms in those bottles. Repeat cultures. Likely contaminant. Hypotension, resolved Endometrial cancer, for which she is on chemotherapy with last treatment approximately 10 days ago. Previous history of obstructive uropathy, none now, with history of bilateral stenting. On Lovenox, with DVT currently Transition out of ICU. Attestations Medical Necessity Statement*: Needs continued hospitalization for close monitoring with transition to subcutaneous Lovenox in this lady with significant anemia, heme positive stool, high burden of DVT Coding Level of Care Code Acute Humanities Division Chair for [facility] Fwd Diagnoses DVT, bilateral lower limbs I82.403 Anemia D64.9 IVC thrombosis I82.220 UTI (urinary tract infection) N39.0 Hypokalemia E87.6 Hypomagnesemia E83.42
[2022-01-01] MEDS: pantoprazole DR 40 mg Tablet PO ×2 (09:34→17:55)
[2022-01-01] MEDS: potassium chloride ER 10 mEq Tablet 40 MEQ PO (09:34)
[2022-01-01] MEDS: magnesium lactate 84 mg Tablet PO ×2 (09:34→17:55)
[2022-01-01] MEDS: cefTRIAXone 1,000 MG in sodium chloride 0.9% (plus) 50 ML 100 MG IV (09:35)
[2022-01-01] MEDS: sodium chloride 0.9% 500 ML 999 ML IV (10:30)
--- NOTE | 2022-01-01 12:02 | PC.CHAP ---
Pastoral Care Encounter/Spiritual Assessment Type of Contact [] Declined grout machine tender visit [] Patient/Family/Request visit [] Outpatient visit [] Follow-up visit [] Physician referral [] Code/Alert [x] Routine visit [] Staff referral [] Actively dying [] Patient sleeping [] Family support [] [] Out of room [] Palliative care [] [x] Receiving care in room [] Pre-surgical visit [] Trauma [] Long length of stay [] ICU visit [] Other: Relational/Emotional Strength [] Patient feels connected with others/family/visitors/staff [] Distress [] Loneliness/isolation [] Abandonment Spirituality of Patient [] Person of Cheli [] Attends Oriental Orthodox of their Cheli [] Believes in Prayer [] Reads Bible or Moravian materials [] There are Spiritual issues to be addressed Crew Dispatcher Interventions [] Prayer [] Active listening [] Non-anxious presence [] Spiritual/emotional support [] Crisis/trauma care [] Spiritual counseling [] Bereavement support [] Provided bereavement packet [] Provided Bible/devotional materials [] Provided toy/stuffed animal, coloring book to patient or family member [] Provided Communion [] Anointing/Land[place] [] Salvation [] Completed spiritual assessment [] Other: Impact on Illness or Injury [] Angry [] Fearful [] Anxious [] Often cries [] Exhaustion [] Unable to work [] Unable to attend amish [] Unable to walk/stand [] Unable to read [] Unable to drive [] Unable to eat/drink [] Unable to sleep [] Unable to be with family [] Patient intubated [] Other: Summary Time spent with patient
[2022-01-01] MEDS: enoxaparin 100 mg/mL Syringe 90 MG SUBCUT (13:22)
--- NOTE | 2022-01-01 16:59 | PC.NURSE ---
PT HAS HAD AN UNEVENTFUL SHIFT. PT HAS NOT HAD ANY COMPLAINTS OF PAIN. PTS WEAKNESS HAS IMPROVED. PT TO MOVE TO MED SURG ROOM 269. REPORT CALLED TO CHIDI LANCASTER. ALL QUESTIONS ANSWERED. PT SAFELY TRANSFERRED TO THE FLOOR BY THIS NURSE.
[2022-01-01] MEDS: duloxetine 30 mg Capsule PO (21:06)
[2022-01-01] MEDS: loperamide 2 mg Capsule PO (21:06)
[2022-01-02] VITALS (8 sets, daily range): BP systolic 98–129; BP diastolic 61–85; PULSE 67–96; RESP 15–19; TEMP 36.5–36.9; O2SAT 94–98
[2022-01-02] MEDS: enoxaparin 100 mg/mL Syringe 90 MG SUBCUT ×3 (00:36→23:16)
[2022-01-02 03:09] LABS: Basophils % 0.3 %; Eosinophils % 0.3 %; Hematocrit 25.8 % (37.0-47.0); Hemoglobin 8.2 g/dL (11.5-15.3); Lymphocytes # 1.6 10^3/uL (0.8-4.8); Lymphocytes % 54.8 %; Mean Corpuscular HGB Conc 31.8 g/dL (30.0-36.0); Mean Corpuscular Volume 91.2 fl (81-99); Mean Platelet Volume 10.2 fL (7.4-10.4); Monocytes # 0.3 10^3/uL (0.2-0.9); Monocytes % 11.3 %; Nucleated Red Blood Cells % 0.7 %; Platelet Count 120 10^3/cmm (130-400); Red Blood Count 2.83 10^6/uL (4.1-5.3); Red Cell Distribution Width 17.9 % (12.1-15.1); White Blood Count 2.9 10^3/uL (4.0-10.0)
[2022-01-02 03:21] LABS: Alanine Aminotransferase 7 U/L (0-33); Alkaline Phosphatase 65 U/L (35-105); Aspartate Amino Transferase 9 U/L (0-32); Blood Urea Nitrogen 7 mg/dL (8-23); Calcium 8.3 mg/dL (8.5-10.5); Carbon Dioxide 21 mmol/L (22-29); Chloride 104 mmol/L (98-107); Globulin 2.5 g/dL (1.3-4.6); Glucose 91 mg/dL (65-115); Magnesium 1.7 mg/dL (1.7-2.3); Osmolality Calculated 278 mOsm/kg (285-295); Sodium 135 mmol/L (136-145); Total Bilirubin 0.3 mg/dL (0.15-1.2); Total Protein 5.5 g/dL (6.6-8.7)
[2022-01-02 04:42] LABS: Neutrophils # 0.96 10^3/uL (1.8-7.7)
[2022-01-02] MEDS: potassium chloride ER 10 mEq Tablet 40 MEQ PO (09:15)
[2022-01-02] MEDS: dronabinol 2.5 mg Capsule 5 MG PO ×2 (09:15→17:20)
[2022-01-02] MEDS: magnesium lactate 84 mg Tablet PO ×2 (09:15→17:20)
[2022-01-02] MEDS: methylphenidate 10 mg Tablet 5 MG PO ×2 (09:16→11:25)
[2022-01-02] MEDS: pantoprazole DR 40 mg Tablet PO ×2 (09:16→17:20)
[2022-01-02] MEDS: cefTRIAXone 1,000 MG in sodium chloride 0.9% (plus) 50 ML 100 MG IV (09:17)
--- NOTE | 2022-01-02 09:21 | P.PN_ITS ---
Subjective Subjective: Francie reports she feels weak, but certainly stronger than yesterday. I was called yesterday when she got up with therapy that her blood pressure dropped. She states she has been up multiple times since that, and not had any symptoms. She was given a small bolus yesterday. Medications: Reviewed: Yes Vitals/I&O/Wt Last Vital Signs Temp 97.7 F 01/02/22 08:00 Pulse 78 01/02/22 08:00 Resp 15 01/02/22 08:00 BP 114/72 01/02/22 08:00 Pulse Ox 94 01/02/22 08:00 O2 Del Method 01/02/22 08:00 O2 Flow Rate 2 12/28/21 23:45 01/01/22 01/02/22 01/02/22 22:59 06:59 14:59 Intake Total 240 / 1739.6 100 / 1839.6 Output Total 300 / 300 200 / 200 Balance 240 / 1739.6 -200 / 1539.6 -200 / -200 Physical Exam Narrative: General exam no distress, conversive Neck is supple no lymphadenopathy thyromegaly Cardiovascular regular rate and rhythm without murmur Lungs clear no wheezing or crackles Abdomen is soft nontender positive bowel sounds Extremities no cyanosis clubbing or edema Data : 01/02/22 02:20 01/02/22 02:20 Micro: Microbiology 01/01/22 09:00 Blood Culture - Preliminary Blood NEGATIVE TO DATE 01/01/22 09:07 Blood Culture - Preliminary Blood NEGATIVE TO DATE 12/28/21 02:16 Blood Culture - Final Blood NO GROWTH AFTER 5 DAYS A&P Assessment and plan (1) DVT, bilateral lower limbs: Bilateral lower extremity DVTs noted. She was placed on a heparin drip. She has been monitored closely. She was transfused several units early in her hospital course and hemoglobin has been low but no evidence of gross bleeding. Heparin drip discontinued 01/01 and she was transitioned to Lovenox Hemoglobin stable today Plan to transition home on current Lovenox dosing. (2) Anemia: Confusing picture. Certainly she has chronic anemia from malignancy and treatment, with worsened anemia from chemotherapy. 1 stool was tested and heme positive, but did not appear bloody or tarry/dark from description. Continue to monitor hemoglobin Continue Protonix twice daily (3) IVC thrombosis: Continue Lovenox twice daily (4) UTI (urinary tract infection): Urine showed mixed maurilio. Linezolid has been discontinued. Currently still on Rocephin. (5) Hypokalemia: Supplemented and normal today (6) Hypomagnesemia: Supplemented and normal Recheck tomorrow Plan Leukopenia, thrombocytopenia. Secondary to chemotherapy. ANC still greater than 500. Perhaps slightly higher today. Heme positive stool. Initiate Protonix. No plans for EGD at this point. General surgery has been consulted previous. Positive blood culture, 2/4 bottles with 2 organisms in those bottles. Repeat cultures drawn yesterday. Likely contaminant. Hypotension, resolved. Check orthostatic blood pressures twice daily Endometrial cancer, for which she is on chemotherapy with last treatment approximately 1 1/2 weeks ago. Appreciate palliative care consult, and initiation of Marinol, methylphenidate. Previous history of obstructive uropathy, none now, with history of bilateral stenting. Significant weakness, orthostasis yesterday. Encourage fluids today. Up and about with physical therapy. Trial for possible discharge home tomorrow with home health. Will need hemoglobin as an outpatient per home health in 3 days and in 10 days. Orthostatic blood pressures today. On Lovenox, with DVT currently Probable discharge tomorrow if continues to improve. Attestations Medical Necessity Statement*: Needs continued hospitalization for close monitoring secondary to DVT burden, anemia, initiation of Lovenox, significant weakness with risk for fall, orthostasis as recent as 01/01 with repeat checks today. Coding Level of Care Code Acute Antique Finisher for [facility] Roberto Diagnoses DVT, bilateral lower limbs I82.403 Anemia D64.9 IVC thrombosis I82.220 UTI (urinary tract infection) N39.0 Hypokalemia E87.6 Hypomagnesemia E83.42
--- NOTE | 2022-01-02 10:34 | PC.SOCIAL ---
IMM Updated Updated pt on IMM. No questions voiced. Provided pt a copy. Initialed, dated, & timed copy in chart.
--- NOTE | 2022-01-02 11:07 | PC.CHAP ---
Pastoral Care Encounter/Spiritual Assessment Type of Contact [] Declined tar roofer visit [] Patient/Family/Request visit [] Outpatient visit [] Follow-up visit [] Physician referral [] Code/Alert [x] Routine visit [] Staff referral [] Actively dying [] Patient sleeping [] Family support [] [] Out of room [] Palliative care [] [] Receiving care in room [] Pre-surgical visit [] Trauma [] Long length of stay [] ICU visit [] Other: Relational/Emotional Strength [x] Patient feels connected with others/family/visitors/staff [] Distress [] Loneliness/isolation [] Abandonment Spirituality of Patient [x] Person of Cheli [] Attends Voodoo of their Cheli [x] Believes in Prayer [] Reads Bible or Latter-Day materials [] There are Spiritual issues to be addressed Administrative Asst Interventions [x] Prayer [] Active listening [] Non-anxious presence [] Spiritual/emotional support [] Crisis/trauma care [] Spiritual counseling [] Bereavement support [] Provided bereavement packet [] Provided Bible/devotional materials [] Provided toy/stuffed animal, coloring book to patient or family member [] Provided Communion [] Anointing/[place] [] Salvation [x] Completed spiritual assessment [] Other: Impact on Illness or Injury [] Angry [] Fearful [] Anxious [] Often cries [] Exhaustion [] Unable to work [] Unable to attend zoroastrianism [] Unable to walk/stand [] Unable to read [] Unable to drive [] Unable to eat/drink [] Unable to sleep [] Unable to be with family [] Patient intubated [] Other: Summary Time spent with patient 15 min
[2022-01-02] MEDS: duloxetine 30 mg Capsule PO (20:23)
[2022-01-03] VITALS (7 sets, daily range): BP systolic 81–127; BP diastolic 52–85; PULSE 75–99; RESP 16–17; TEMP 36.1–36.9; O2SAT 92–95
[2022-01-03 04:41] LABS: Basophils % 0.4 %; Eosinophils % 0.4 %; Hematocrit 24.3 % (37.0-47.0); Hemoglobin 7.7 g/dL (11.5-15.3); Lymphocytes # 1.3 10^3/uL (0.8-4.8); Lymphocytes % 52.3 %; Mean Corpuscular HGB Conc 31.7 g/dL (30.0-36.0); Mean Corpuscular Hemoglobin 28.5 pg (28.0-34.0); Mean Platelet Volume 9.9 fL (7.4-10.4); Monocytes # 0.3 10^3/uL (0.2-0.9); Monocytes % 14.2 %; Neutrophils % 31.9 %; Nucleated Red Blood Cells % 0 %; Platelet Count 87 10^3/cmm (130-400); Red Cell Distribution Width 17.8 % (12.1-15.1); White Blood Count 2.4 10^3/uL (4.0-10.0)
[2022-01-03 05:01] LABS: Neutrophils # 0.76 10^3/uL (1.8-7.7)
[2022-01-03 05:11] LABS: Alanine Aminotransferase 7 U/L (0-33); Albumin Level 2.6 g/dL (3.5-5.2); Alkaline Phosphatase 60 U/L (35-105); Anion Gap 14.6 (5-19); Aspartate Amino Transferase 8 U/L (0-32); Blood Urea Nitrogen 7 mg/dL (8-23); Calcium 8.4 mg/dL (8.5-10.5); Carbon Dioxide 22 mmol/L (22-29); Chloride 98 mmol/L (98-107); Globulin 2.6 g/dL (1.3-4.6); Glucose 89 mg/dL (65-115); Magnesium 1.3 mg/dL (1.7-2.3); Osmolality Calculated 269 mOsm/kg (285-295); Potassium 3.6 mmol/L (3.5-5.1); Sodium 131 mmol/L (136-145); Total Bilirubin 0.4 mg/dL (0.15-1.2); Total Protein 5.2 g/dL (6.6-8.7)
[2022-01-03] MEDS: cefTRIAXone 1,000 MG in sodium chloride 0.9% (plus) 50 ML 100 MG IV (08:10)
[2022-01-03] MEDS: pantoprazole DR 40 mg Tablet PO ×2 (08:10→17:06)
[2022-01-03] MEDS: potassium chloride ER 10 mEq Tablet 40 MEQ PO (08:10)
[2022-01-03] MEDS: magnesium lactate 84 mg Tablet PO ×2 (08:10→17:06)
[2022-01-03] MEDS: methylphenidate 10 mg Tablet 5 MG PO ×2 (08:11→11:19)
[2022-01-03] MEDS: magnesium sulfate premix 2 GM/50 ML PIGGYBACK IV (09:11)
[2022-01-03] MEDS: enoxaparin 100 mg/mL Syringe 90 MG SUBCUT (11:19)
--- NOTE | 2022-01-03 11:38 | P.PN_ITS ---
Subjective Subjective: Seen this morning. Patient states she feels very weak and cold. She feels cold at baseline as well. She states she does not feel well enough to go home. She is weak to get out of bed. Labs also show worsening neutropenia today. Hemoglobin 7.7. Breakfast tray at bedside. Does not have much of an appetite. Says she will try to have lunch but does not want anything at this time. Vitals/I&O/Wt Last Vital Signs Temp 97.8 F 01/03/22 08:00 Pulse 78 01/03/22 08:00 Resp 16 01/03/22 08:00 BP 107/73 01/03/22 08:00 Pulse Ox 92 01/03/22 08:00 O2 Del Method 01/03/22 08:00 O2 Flow Rate 2 01/03/22 08:00 01/02/22 01/03/22 01/03/22 22:59 06:59 14:59 Intake Total 140 / 310 240 / 240 Balance 140 / 110 240 / 240 Physical Exam Narrative: General exam no distress, conversive. Laying in bed covered with a blanket up to her neck. States she is cold. Neck is supple no lymphadenopathy thyromegaly Cardiovascular regular rate and rhythm without murmur Lungs clear no wheezing or crackles Abdomen is soft nontender positive bowel sounds Extremities no cyanosis clubbing or edema Data : 01/03/22 03:54 01/03/22 03:54 Micro: Microbiology 01/01/22 09:00 Blood Culture - Preliminary Blood NEGATIVE TO DATE 01/01/22 09:07 Blood Culture - Preliminary Blood NEGATIVE TO DATE A&P Assessment and plan (1) DVT, bilateral lower limbs: Bilateral lower extremity DVTs noted. She was placed on a heparin drip. She has been monitored closely. She was transfused several units early in her hospital course and hemoglobin has been low but no evidence of gross bleeding. Heparin drip discontinued 01/01 and she was transitioned to Lovenox Hemoglobin stable today Plan to transition home on current Lovenox dosing. (2) Anemia: Confusing picture. Certainly she has chronic anemia from malignancy and treatment, with worsened anemia from chemotherapy. 1 stool was tested and heme positive, but did not appear bloody or tarry/dark from description. Continue to monitor hemoglobin Continue Protonix twice daily (3) IVC thrombosis: Continue Lovenox twice daily (4) UTI (urinary tract infection): Urine showed mixed maurilio. Linezolid has been discontinued. Currently still on Rocephin. (5) Hypokalemia: Supplemented and normal today (6) Hypomagnesemia: Supplemented and normal Recheck tomorrow Plan Leukopenia, thrombocytopenia. Secondary to chemotherapy. ANC still greater than 500. Perhaps slightly higher today. Heme positive stool. Initiate Protonix. No plans for EGD at this point. General surgery has been consulted previous. Positive blood culture, 2/4 bottles with 2 organisms in those bottles. Repeat cultures drawn yesterday. Likely contaminant. Hypotension, resolved. Check orthostatic blood pressures twice daily Endometrial cancer, for which she is on chemotherapy with last treatment approximately 1 1/2 weeks ago. Appreciate palliative care consult, and initiation of Marinol, methylphenidate. Previous history of obstructive uropathy, none now, with history of bilateral stenting. Significant weakness, orthostasis yesterday. Encourage fluids today. Up and about with physical therapy. Trial for possible discharge home tomorrow with home health. Will need hemoglobin as an outpatient per home health in 3 days and in 10 days. Orthostatic blood pressures today. We will continue to monitor patient in the hospital. On Lovenox, with DVT currently Probable discharge tomorrow if continues to improve. Attestations Medical Necessity Statement*: We will try to discharge home tomorrow if she continues to improve. Patient quite weak today. Coding Level of Care Code Acute Biofuels Engineering Manager for [facility] Fwd Diagnoses DVT, bilateral lower limbs I82.403 Anemia D64.9 IVC thrombosis I82.220 UTI (urinary tract infection) N39.0 Hypokalemia E87.6 Hypomagnesemia E83.42
[2022-01-03] MEDS: dronabinol 2.5 mg Capsule 5 MG PO (17:06)
--- NOTE | 2022-01-03 19:28 | PC.NURSE ---
Report taken from Holli MURILLO. Patient A&O, VSS, no further needs at time.
[2022-01-03] MEDS: loperamide 2 mg Capsule PO (19:44)
--- NOTE | 2022-01-03 19:47 | PC.NURSE ---
BM's Had a large loose/thick liquid BM. Says is second one this afternoon and doesn't want the diarrhea to get started again. Requested Imodium and med given
[2022-01-03] MEDS: duloxetine 30 mg Capsule PO (20:52)
[2022-01-04] VITALS (12 sets, daily range): BP systolic 79–126; BP diastolic 49–77; PULSE 70–86; RESP 15–19; TEMP 36.6–36.8; O2SAT 91–98
[2022-01-04] MEDS: enoxaparin 100 mg/mL Syringe 90 MG SUBCUT ×3 (00:26→23:46)
[2022-01-04 04:56] LABS: Basophils % 0.4 %; Eosinophils % 0.4 %; Hematocrit 23.9 % (37.0-47.0); Hemoglobin 7.7 g/dL (11.5-15.3); Lymphocytes # 1.4 10^3/uL (0.8-4.8); Lymphocytes % 54.7 %; Mean Corpuscular HGB Conc 32.2 g/dL (30.0-36.0); Mean Corpuscular Hemoglobin 28.8 pg (28.0-34.0); Mean Corpuscular Volume 89.5 fl (81-99); Mean Platelet Volume 10.1 fL (7.4-10.4); Monocytes # 0.5 10^3/uL (0.2-0.9); Monocytes % 18.8 %; Neutrophils % 24.9 %; Nucleated Red Blood Cells % 0.8 %; Platelet Count 84 10^3/cmm (130-400); Red Blood Count 2.67 10^6/uL (4.1-5.3); Red Cell Distribution Width 17.6 % (12.1-15.1); White Blood Count 2.6 10^3/uL (4.0-10.0)
[2022-01-04 05:00] LABS: Neutrophils # 0.64 10^3/uL (1.8-7.7)
[2022-01-04 05:24] LABS: Anion Gap 11.7 (5-19); Blood Urea Nitrogen 7 mg/dL (8-23); Calcium 8.3 mg/dL (8.5-10.5); Carbon Dioxide 26 mmol/L (22-29); Chloride 102 mmol/L (98-107); Glucose 100 mg/dL (65-115); Osmolality Calculated 280 mOsm/kg (285-295); Potassium 3.7 mmol/L (3.5-5.1); Sodium 136 mmol/L (136-145)
[2022-01-04] MEDS: methylphenidate 10 mg Tablet 5 MG PO ×2 (08:57→13:18)
[2022-01-04] MEDS: magnesium lactate 84 mg Tablet PO ×2 (08:57→17:51)
[2022-01-04] MEDS: pantoprazole DR 40 mg Tablet PO (08:58)
[2022-01-04] MEDS: potassium chloride ER 10 mEq Tablet 40 MEQ PO (08:58)
[2022-01-04] MEDS: cefTRIAXone 1,000 MG in sodium chloride 0.9% (plus) 50 ML 100 MG IV (08:58)
--- NOTE | 2022-01-04 09:19 | PC.SOCIAL ---
IMM Update pg 2 of IMM updated and reviewed w/ patient. Copy provided. Copy dated, initialed and placed in chart.
[2022-01-04 11:39] LABS: Magnesium 1.6 mg/dL (1.7-2.3)
[2022-01-04 12:18] LABS: Cortisol Random 5.85 ug/dL (2.47-19.5)
[2022-01-04] MEDS: sodium chloride 0.9% (100 ml) 100 ML 10 ML (13:17)
--- NOTE | 2022-01-04 13:43 | P.PN_ITS ---
Subjective Subjective: Hospital course, labs appreciated. Examination patient in comfortably in bed. States she is feeling better than when she came in. Denies any nausea vomiting, headache. States usually still has loose bowel movements which are yellow in color. Denies any melena. States having dizziness on standing up. Orthostatics positive with blood pressure dropping down to 79 systolics. Vitals/I&O/Wt Last Vital Signs Temp 97.9 F 01/04/22 13:22 Pulse 74 01/04/22 13:22 Resp 18 01/04/22 13:22 BP 117/67 01/04/22 13:22 Pulse Ox 97 01/04/22 13:22 O2 Del Method 01/04/22 11:21 O2 Flow Rate 2 01/04/22 07:53 01/03/22 01/04/22 01/04/22 22:59 06:59 14:59 Intake Total 360 / 600 0 / 600 530 / 530 Output Total 750 / 750 400 / 1150 Balance -390 / -150 -400 / -550 530 / 530 Physical Exam Narrative: General exam no distress, conversive. Laying in bed covered with a blanket up to her neck. States she is cold. Neck is supple no lymphadenopathy thyromegaly Cardiovascular regular rate and rhythm without murmur Lungs clear no wheezing or crackles Abdomen is soft nontender positive bowel sounds Extremities no cyanosis clubbing or edema Data : 01/04/22 04:13 01/04/22 04:13 Micro: Microbiology 12/28/21 02:40 Blood Culture - Final Blood Staphylococcus epidermidis Staphylococcus sp coag neg A&P Assessment and plan (1) DVT, bilateral lower limbs: Bilateral lower extremity DVTs. On presentation was on heparin drip which has been transitioned over to Lovenox. Monitor hemoglobin. Plan to discharge on Lovenox going forward. (2) Anemia: Multifactorial. Most along with secondary to chemotherapy. Patient denies of having any melena. States usually bowel movements are yellow in color. Continue with Protonix, Carafate. Maintain hemoglobin over 8. Patient orthostatic positive today. Will transfuse monitor blood transfusion. Confirm with pharmacy patient did not get any filgrastim along with chemotherapy on 12/23. Patient having neutropenia, thrombocytopenia as well. Will dose 480 mcg one-time. (3) IVC thrombosis: Continue Lovenox twice daily (4) UTI (urinary tract infection): Urine showed mixed maurilio. Linezolid has been discontinued. Currently still on Rocephin. (5) Hypokalemia: (6) Hypomagnesemia: Plan Leukopenia, thrombocytopenia. Secondary to chemotherapy. ANC still greater than 500. Positive blood culture, 2/4 bottles with 2 organisms in those bottles. Repeat cultures drawn yesterday. Likely contaminant. Endometrial cancer, for which she is on chemotherapy with last treatment approximately 1 1/2 weeks ago. Appreciate palliative care consult, and initiation of Marinol, methylphenidate. Previous history of obstructive uropathy, none now, with history of bilateral stenting. Course she states she would not want chest compressions or intubation if needed. CODE STATUS changed to DNR/DNI. On Lovenox, with DVT currently Probable discharge tomorrow if continues to improve. Attestations Medical Necessity Statement*: Requires further hospitalization for management of IVC thrombosis, bilateral DVT, in a patient with pancytopenia, anemia requiring blood transfusion secondary to chemotherapy Time Spent in Patient Care: Greater than 35 minutes Coding Level of Care Code Acute Culvert Installer [facility] Diagnoses DVT, bilateral lower limbs I82.403 Anemia D64.9 IVC thrombosis I82.220 UTI (urinary tract infection) N39.0 Hypokalemia E87.6 Hypomagnesemia E83.42
[2022-01-04] MEDS: sucralfate 1 gm/10 mL Oral Liq UDC PO ×2 (17:52→20:16)
[2022-01-04] MEDS: duloxetine 30 mg Capsule PO (20:15)
[2022-01-05] VITALS (7 sets, daily range): BP systolic 94–106; BP diastolic 60–75; PULSE 78–94; RESP 17–18; TEMP 36.7–37; O2SAT 94–96
[2022-01-05 04:41] LABS: Basophils % 0.7 %; Eosinophils % 0.2 %; Hematocrit 29.2 % (37.0-47.0); Hemoglobin 9.2 g/dL (11.5-15.3); Lymphocytes # 1.5 10^3/uL (0.8-4.8); Lymphocytes % 33.5 %; Mean Corpuscular HGB Conc 31.5 g/dL (30.0-36.0); Mean Corpuscular Hemoglobin 28.5 pg (28.0-34.0); Mean Corpuscular Volume 90.4 fl (81-99); Mean Platelet Volume 9.6 fL (7.4-10.4); Monocytes # 0.7 10^3/uL (0.2-0.9); Monocytes % 15.3 %; Neutrophils # 2.14 10^3/uL (1.8-7.7); Neutrophils % 48.7 %; Nucleated Red Blood Cells # 0.1 /100WBC; Nucleated Red Blood Cells % 1.8 %; Red Blood Count 3.23 10^6/uL (4.1-5.3); Red Cell Distribution Width 18.4 % (12.1-15.1); White Blood Count 4.4 10^3/uL (4.0-10.0)
[2022-01-05 05:05] LABS: Magnesium 1.7 mg/dL (1.7-2.3)
[2022-01-05 05:06] LABS: Alanine Aminotransferase 6 U/L (0-33); Albumin Level 2.8 g/dL (3.5-5.2); Alkaline Phosphatase 65 U/L (35-105); Anion Gap 17.4 (5-19); Aspartate Amino Transferase 10 U/L (0-32); Blood Urea Nitrogen 8 mg/dL (8-23); Calcium 8.4 mg/dL (8.5-10.5); Carbon Dioxide 22 mmol/L (22-29); Chloride 100 mmol/L (98-107); Globulin 2.7 g/dL (1.3-4.6); Glucose 83 mg/dL (65-115); Osmolality Calculated 277 mOsm/kg (285-295); Potassium 4.4 mmol/L (3.5-5.1); Sodium 135 mmol/L (136-145); Total Bilirubin 0.6 mg/dL (0.15-1.2); Total Protein 5.5 g/dL (6.6-8.7)
[2022-01-05 05:43] LABS: Add RBC Morph Yes
[2022-01-05 05:45] LABS: RBC Morph Comp No
[2022-01-05 05:48] LABS: Anisocytosis 2+; Polychromasia 1+
[2022-01-05 05:50] LABS: Platelet Count 78 10^3/cmm (130-400)
[2022-01-05] MEDS: sucralfate 1 gm/10 mL Oral Liq UDC PO (06:34)
[2022-01-05] MEDS: dronabinol 2.5 mg Capsule 5 MG PO (06:34)
--- NOTE | 2022-01-05 10:01 | PM.DCS ---
Discharge Providers Date of Admission: 12/28/21 04:19 Date of Discharge: January 05, 2022 Attending Provider at Admission: Gabby Wood MD Attending Provider at Discharge: Antoni Mcdowell MD Consults: Surgery: Dr. Martinez Palliative: Dr. Long Primary Care Provider: Nils Gabmino DO Diagnoses at Discharge Discharge Diagnosis (1) DVT, bilateral lower limbs: Status: Acute (2) Anemia: Status: Acute (3) IVC thrombosis: Status: Acute (4) UTI (urinary tract infection): Status: Acute (5) Hypokalemia: Status: Acute (6) Hypomagnesemia: Status: Acute Reason for Visit Reason for Visit: WEAKNESS Brief History: History as per HPI: 12/28: Francie Levine is a 76 year old female with a history of non-Hodgkin lymphoma, treated with R-CHOP, now in remission,more recently diagnosed with endometrial ca with involvement of abdominal LN and omentum in 06/27. She is currently on neoadjuvant chemotherapy with 3 weekly carboplatin and Taxol since July 2021, with post chemo course usually complicated by dehydration, diarrhea and hypotension.? She is planned to undergo hysterectomy once tumor burden shrinks.? She was also diagnosed with right leg DVT and she has IVC filter placed in july 2021. As she had active endometrial bleeding at that time, she was not considered a candidate for anticogulation. More recently in november she had ureteral stents by Dr. Burr in [place], for recent history of bilateral ureteral obstruction and hydronephrosis. She presents to the ER today c/o dehydration which she attributes to her chemotherapy one week ago. Described symptoms as generalized malaise, weakness. Since November she has been on dose reduced regimen of chemo regimen to ensure better tolerability. On presentation to the emergency room she was noted to be hypotensive with a systolic blood pressure of 70.? At the time of my assessment blood pressure is improved to 101/65 after receiving 2 L of fluid bolus in the ER.? Her lactate was elevated at 6.? Recent urine culture also showed E. coli which is resistant to her prophylactic regimen of Cipro floxacillin.? I requested a CT of the abdomen and pelvis to evaluate for any obstructive pyelonephritis versus abdominal bleeding to explain her hypotension given that she had thrombocytopenia in late November.? CT abdomen was negative for hydronephrosis and bleeding, however showed progression of known DVT since 10/2021. Newly developed thrombus was noted in the IVC extended into the proximal left common iliac vein and right distal iliac common femoral veins.? No signs of bowel ischemia were noted on the CT. She denies any cough, chest pain, dyspnea, palpitations, abdominal pain, nausea, vomiting, anjum, vaginal bleeding at this time. Denies dysuria,it appears she was noted to have asymptomatic bactereiuria on 12/20 in the ED following which she has been on treatment with cephalexin 250mg BID. Of note, she has a h/o recurrent orthostatic BP drop on multiple previous occasions which has responded to IVF hydration. Hospital Course Hospital Course Patient was admitted to the hospital further evaluation and management. At first she was admitted to the ICU. Lower limb Doppler showed extensive bilateral DVTs and CT abdomen was consistent with thrombus at IVC extending to proximal left common iliac vein. She was started on heparin drip and hemoglobin was closely monitored. Surgery was consulted for possible EGD and colonoscopy given worsening anemia. As per surgery patient does not require immediate EGD and colonoscopy which can be done as an outpatient. During hospitalization patient's hemoglobin remained stable. Eventually she was transitioned over from IV heparin to Lovenox subcutaneous as per creatinine clearance. 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 Patient required 1 unit of blood transfusion during hospitalization. Her blood pressures remain low stable. On admission there was a concern for possible UTI for which she was started on IV ceftriaxone. Her blood cultures and urine cultures during hospitalization remain negative. Patient continued to have frequent episodes of diarrhea. Infectious cause including C. difficile was ruled out. Given multiple comorbidities, cancer cachexia there is a high risk for readmission. Patient is being followed up with palliative care in-house and will be following up as an outpatient as well. Patient wishes to continue her chemotherapy with 3 more cycles and finished a course and if it does not help would like to transition over to palliative care. For now she has been discharged in hemodynamically stable condition at baseline mentation on Lovenox 1 mg/kg body weight every 12 hourly as per creatinine clearance. She is to follow-up with her primary care provider and her oncologist within next 1 week for repeat CBC. Physical Exam Narrative: General exam no distress, conversive. Laying in bed covered with a blanket up to her neck. States she is cold. Neck is supple no lymphadenopathy thyromegaly Cardiovascular regular rate and rhythm without murmur Lungs clear no wheezing or crackles Abdomen is soft nontender positive bowel sounds Extremities no cyanosis clubbing or edema Discharge Data Studies Completed and Pending Completed Studies During Hospitalization Category Date Time Status CT abdomen pelvis w con* [id number] Urgent Cat Scan 12/28/21 04:[address] angio chest PE protcl [id number] Stat Cat Scan 12/28/21 11:[address] head wo con* [id number] Stat Cat Scan 12/28/21 01:56 Completed XR chest 1V portable [id number] Stat Exams 12/28/21 01:56 [place] [id number] Routine Ultrasound 12/28/21 08:20 Completed CV. echo complete* [id number] Routine Ultrasound 12/28/21 11:45 Completed Pending at discharge Category Date Time Status Blood Culture Stat Lab 01/01/22 09:00 Results Complete Blood Count w/Auto AM LABS Lab 01/06/22 04:00 Ordered Complete Blood Count w/Auto AM LABS Lab 01/07/22 04:00 Ordered Comprehensive Metabolic Panel AM LABS Lab 01/06/22 04:00 Ordered Comprehensive Metabolic Panel AM LABS Lab 01/07/22 04:00 Ordered MAG [Magnesium] AM LABS Lab 01/06/22 04:00 Ordered MAG [Magnesium] AM LABS Lab 01/07/22 04:00 Ordered Radiology Impressions Chest X-Ray 12/28/21 01:56 IMPRESSION: No acute cardiopulmonary abnormality identified. Head CT 12/28/21 01:56 IMPRESSION: 1. No acute intracranial abnormality identified. 2. Chronic sinusitis. Abdomen/Pelvis CT 12/28/21 04:16 IMPRESSION: 1. IVC filter noted in place. Thrombus in the IVC again noted, similar to prior exam. Additional newly developed thrombus in the IVC extending to the proximal left common iliac vein. Thrombus now also visualized in the right distal iliac/common femoral vein. 2. Bilateral double-J ureteral stents noted in place. No hydronephrosis. COMMENTS: For patients with an IVC filter, recommend assessment for a management plan for the patient's IVC filter. If there is no established management plan, recommend referral to an interventional clinician on a nonemergent basis for evaluation. ADDENDUM: 12/28/21 0534 THIS REPORT CONTAINS FINDINGS THAT MAY BE CRITICAL TO PATIENT CARE. The findings were verbally communicated via telephone conference with MECHE Noble at 5:31 AM CDT on 12/28/2021. The findings were acknowledged and understood. Venous Duplex 12/28/21 08:20 IMPRESSION: Bilateral lower extremity DVT. ADDENDUM: 12/28/21 0949 THIS REPORT CONTAINS FINDINGS THAT MAY BE CRITICAL TO PATIENT CARE. The findings were verbally communicated via telephone conference with CHIDI Wray at 9:46 AM CDT on 12/28/2021. The findings were acknowledged and understood. Chest CTA 12/28/21 11:45 IMPRESSION: 1. Negative for pulmonary embolus. 2. Coronary artery atherosclerotic calcifications. 3. Right-sided Port-A-Cath. 4. Minimal patchy bilateral ground-glass atelectasis. 5. Emphysematous changes. 6. Spinal stimulator. 7. Several chronic compression fractures of the spine without retropulsion of bony fragments similar prior exam. 8. Several prominent subcentimeter short axis nonspecific mediastinal lymph nodes. Laboratory Results WBC 4.4 10^3/uL (4.0-10.0) 01/05/22 04:02 RBC 3.23 10^6/uL (4.1-5.3) L 01/05/22 04:02 Hgb 9.2 g/dL (11.5-15.3) L 01/05/22 04:02 Hct 29.2 % (37.0-47.0) L 01/05/22 04:02 MCV 90.4 fl (81-99) 01/05/22 04:02 MCH 28.5 pg (28.0-34.0) 01/05/22 04:02 MCHC 31.5 g/dL (30.0-36.0) 01/05/22 04:02 RDW 18.4 % (12.1-15.1) H 01/05/22 04:02 Plt Count 78 10^3/cmm (130-400) L 01/05/22 04:02 MPV 9.6 fL (7.4-10.4) 01/05/22 04:02 Neut % (Auto) 48.7 % 01/05/22 04:02 Lymph % (Auto) 33.5 % 01/05/22 04:02 Sherman % (Auto) 15.3 % 01/05/22 04:02 Eos % (Auto) 0.2 % 01/05/22 04:02 Baso % (Auto) 0.7 % 01/05/22 04:02 Neut # (Auto) 2.14 10^3/uL (1.8-7.7) 01/05/22 04:02 Lymph # (Auto) 1.5 10^3/uL (0.8-4.8) 01/05/22 04:02 Sherman # (Auto) 0.7 10^3/uL (0.2-0.9) 01/05/22 04:02 Eos # (Auto) 0.0 10^3/uL (0.0-0.8) 01/05/22 04:02 Baso # (Auto) 0.0 10^3/uL (0.0-0.1) 01/05/22 04:02 Nucleated RBC % (auto) 1.8 % 01/05/22 04:02 Nucleated RBCs # 0.1 /100WBC 01/05/22 04:02 Polychromasia 1+ H 01/05/22 04:02 Anisocytosis 2+ H 01/05/22 04:02 PT 14.90 SECONDS (12.1-14.9) 12/28/21 02:00 INR 1.14 (0.8-1.2) 12/28/21 02:00 APTT 49.5 SECONDS (23.9-36.7) H 01/01/22 07:57 Specimen Type Arterial 12/28/21 02:27 Sample Site Radial, right 12/28/21 02:27 ABG pH 7.47 (7.35-7.45) H 12/28/21 02:27 ABG pCO2 26.5 mmHg (35-45) L 12/28/21 02:27 ABG pO2 87.5 mmHg (80.0-100.0) 12/28/21 02:27 ABG HCO3 19.2 mmol/L (22-26) L 12/28/21 02:27 ABG Base Excess -4.0 mmol/L (-2.0-2.0) L 12/28/21 02:27 [place]on Test Pos 12/28/21 02:27 Hematocrit 21.7 % (37-47) L 12/28/21 02:27 O2 Delivery Device Nc 12/28/21 02:27 O2 Liters/Min 3.0 % 12/28/21 02:27 Senior Data Developer ID Celestine 12/28/21 02:27 Sodium 135 mmol/L (136-145) L 01/05/22 04:02 Potassium 4.4 mmol/L (3.5-5.1) 01/05/22 04:02 Chloride 100 mmol/L (98-107) 01/05/22 04:02 Carbon Dioxide 22 mmol/L (22-29) 01/05/22 04:02 Anion Gap 17.4 (5-19) 01/05/22 04:02 BUN 8 mg/dL (8-23) 01/05/22 04:02 Creatinine 0.8 mg/dL (0.5-0.9) 01/05/22 04:02 GFR Calculation Not Reportable 01/05/22 04:02 Glucose 83 mg/dL (65-115) 01/05/22 04:02 Calculated Osmolality 277 mOsm/kg (285-295) L 01/05/22 04:02 Lactate 1.4 mmol/L (0.5-2.2) 12/28/21 14:42 Calcium 8.4 mg/dL (8.5-10.5) L 01/05/22 04:02 Phosphorus 2.7 mg/dL (2.5-4.5) 12/31/21 04:04 Magnesium 1.7 mg/dL (1.7-2.3) 01/05/22 04:02 Iron 175 ug/dL (37-145) H 12/28/21 07:58 TIBC 207 mcg/dl 12/28/21 07:58 % Saturation 84.5 % (20-50) H 12/28/21 07:58 Unsat Iron Binding 32 ug/dL (112-347) L 12/28/21 07:58 Ferritin 1621 ng/mL (15-150) H 12/28/21 07:58 Total Bilirubin 0.6 mg/dL (0.15-1.2) 01/05/22 04:02 AST 10 U/L (0-32) 01/05/22 04:02 ALT 6 U/L (0-33) 01/05/22 04:02 Alkaline Phosphatase 65 U/L (35-105) 01/05/22 04:02 Creatine Kinase 18 U/L (26-192) L 12/28/21 02:00 Troponin T Baseline 34 ng/L (0-10) H 12/28/21 14:38 Troponin T 120 Minute 28.94 ng/L (0-10) H 12/28/21 16:05 Delta Troponin T -5.06 ABS# (0-10) L 12/28/21 16:05 Troponin T Hi Sens 6Hr 28.96 ng/L (0-10) H 12/28/21 20:04 Troponin T Hi Sens 6Hr Delta -5.04 ng/L (0-12) L 12/28/21 20:04 C-Reactive Protein 19.8 mg/L (0.0-4.9) H 12/28/21 02:00 NT-Pro-B Natriuret Pep 720 pg/mL (0-450) H 12/28/21 14:38 Total Protein 5.5 g/dL (6.6-8.7) L 01/05/22 04:02 Albumin 2.8 g/dL (3.5-5.2) L 01/05/22 04:02 Globulin 2.7 g/dL (1.3-4.6) 01/05/22 04:02 Procalcitonin 0.20 ng/mL (0-0.5) 12/28/21 14:38 Random Cortisol 5.85 ug/dL (2.47-19.5) 01/04/22 04:13 Urine Color Yellow (Yellow) 12/28/21 04:25 Urine Appearance Hazy (CLEAR) A 12/28/21 04:25 Urine pH 5 (5-7) 12/28/21 04:25 Ur Specific [place] 1.010 (1.005-1.030) 12/28/21 04:25 Urine Protein 2+ (Negative) H 12/28/21 04:25 Urine Glucose (UA) Trace (Normal) H 12/28/21 04:25 Urine Ketones Negative (Negative) 12/28/21 04:25 Urine Blood 2+ (Negative) H 12/28/21 04:25 Urine Nitrate Negative (Negative) 12/28/21 04:25 Urine Bilirubin Neg (Negative) 12/28/21 04:25 Prot Sulfosalicylic Acd Positive (Negative) 12/28/21 04:25 Urine Urobilinogen Neg mg/dL (Negative) 12/28/21 04:25 Ur Leukocyte Esterase 2+ (Negative) H 12/28/21 04:25 Urine RBC 5-10 /hpf (0-2) H 12/28/21 04:25 Urine WBC 15-25 /hpf (0-5) H 12/28/21 04:25 Ur Squamous Epith Cells 0-4 /hpf (0-5) H 12/28/21 04:25 Ur Transition Epith Cell 0-4 /hpf 12/28/21 04:25 Amorphous Sediment Not Reportable 12/28/21 04:25 Urine Bacteria 3+ /hpf (NONE) H 12/28/21 04:25 Other Casts Wbc cast /lpf 12/28/21 04:25 Coronavirus 229E (PCR) Cancelled 12/28/21 12:06 Influenza Type A Ag negative (Negative) 12/28/21 12:06 Influenza Type B Ag negative (Negative) 12/28/21 12:06 SARS-CoV-2 (PCR) Cancelled 12/28/21 12:06 SARS-CoV-2 Ag (Rapid) Negative (Negative) 12/28/21 12:06 Blood Type O Negative 01/04/22 11:12 Rho(D) Type Negative 01/04/22 11:12 Antibody Screen Negative 01/04/22 11:12 Crossmatch See Detail 01/04/22 11:12 Vitals Last Vital Signs Temp 98.2 F 01/05/22 07:51 Pulse 90 01/05/22 08:00 Resp 18 01/05/22 07:51 BP 97/63 01/05/22 08:00 Pulse Ox 96 01/05/22 07:51 O2 Del Method 01/05/22 07:51 O2 Flow Rate 2 01/04/22 07:53 Discharge Plan Discharge Patient Disposition: Home Health Service Condition: Serious Prescriptions: New methylphenidate HCl 10 mg Tablet 5 mg PO QAM Qty: 30 0RF methylphenidate HCl 10 mg Tablet 5 mg PO DAILY@1200 Qty: 30 0RF magnesium L-lactate [Magtab] 84 mg Tablet Extended Release 84 mg PO BID Qty: 60 0RF enoxaparin 100 mg/mL Syringe 90 mg SUBCUT Q12H Qty: 60 0RF pantoprazole 40 mg Tablet,Delayed Release (Dr/Ec) 40 mg PO BID Qty: 60 0RF sucralfate 100 mg/mL Suspension 1 g PO AC&BEDTIME Qty: 300 0RF Continued dexamethasone 4 mg tablet 4 mg PO .COMPLEX Qty: 10 6RF Rx Instructions: 4 mg orally Take 5 tabs - 6 and 12 hours prior to treatment; loratadine [Claritin] 10 mg Tablet 10 mg PO DAILY PRN (Reason: Allergy Symptoms) hydrocodone-acetaminophen 5-325 mg Tablet 1 tab PO Q4H PRN (Reason: Pain) ondansetron 4 mg tablet,disintegrating 4 mg PO Q6H PRN (Reason: nausea and vomiting) Qty: 14 0RF hydroxyzine HCl 25 mg Tablet 25 mg PO DAILY PRN (Reason: Itching) magnesium oxide 400 mg (241.3 mg magnesium) tablet 400 mg PO BID Qty: 60 0RF potassium chloride 20 mEq tablet,ER particles/crystals 40 meq PO BID Qty: 120 0RF duloxetine 30 mg Capsule,Delayed Release(Dr/Ec) 30 mg PO BEDTIME lorazepam [Ativan] 0.5 mg Tablet 0.5 mg PO .BEFORE CHEMO paclitaxel 6 mg/mL Concentrate See Rx Instructions .ROUTE .COMPLEX Rx Instructions: 390.25 mg every 3 weeks palonosetron [Aloxi] 0.25 mg/5 mL Solution 0.25 mg IV .BEFORE CHEMO carboplatin 10 mg/mL Solution See Rx Instructions .ROUTE .COMPLEX Rx Instructions: 615.78 mg every 3 weeks fosaprepitant [Emend (fosaprepitant)] 150 mg Recon Soln 150 mg IV .BEFORE CHEMO promethazine 25 mg tablet 25 mg PO Q6H PRN (Reason: nausea and vomiting) Qty: 20 0RF Discharge Orders: Discharge Order (Routine); Ordered 01/05/22 Ordered By: Antoni Mcdowell Referrals: [facility] [Outside] Nils Gambino DO [Primary Care Provider] - 01/14/22 2:50 pm Marc Baugh MD [Staff Physician] - 01/16/22 8:00 am Discharge Diet: Regular Discharge Activity: Resume usual activity and Increase activity as tolerated Patient Instructions: Opioid Safety Activity Restrictions/Additional Instructions: Follow-up with a primary care provider within next 1 week for repeat CBC. Please follow-up with Dr. Baugh from oncology and hematology within next 1 week. Continue doing Lovenox 1 mg/kg body weight every 12 hourly as blood thinner. Protonix is the acid reflux medication which she should take twice daily along with sucralfate which you should take with each meal and bedtime. If your hemoglobin continues to trend down again you will need EGD and colonoscopy as an outpatient. If hemoglobin trends down we should get a referral from your primary care provider. Discharge Attestations Time Spent in Discharge Care*: greater than 30 min Specific Discharge Activities: educating patient, discussing with pcp/other providers, discussing with vocational case manager/social workers/dc planners, documenting/other paperwork and evaluating patient/reviewing data Status at Discharge: Cognitive status at discharge: cognitively intact, Behavioral status at discharge: cooperative, Functional status at discharge: other assisted ambulation, Overall status at discharge: patient is back to baseline Quality Metrics Clinical Quality Measures [ Venous Thromboembolism { Contraindication to Overlap Therapy: None; Overlap threrpy ordered; VTE Discharge Education: Education about anticoagulant therapy/Care Notes given, Education about treatment options/disease process, Medication side effects education, Follow-up arranged; Deep Vein Thrombosis/Pulmonary Embolism Present on Admission: Yes; Contraindication to Pharm VTE Prophylaxis: None; Pharmacological prophylaxis given;}] Coding Level of Care Code Acute [facility] DC note History Comprehensive Exam Comprehensive Medical Decision Making High Complexity Diagnoses DVT, bilateral lower limbs I82.403 Anemia D64.9 IVC thrombosis I82.220 UTI (urinary tract infection) N39.0 Hypokalemia E87.6 Hypomagnesemia E83.42
[2022-01-05] MEDS: methylphenidate 10 mg Tablet 5 MG PO (10:06)
[2022-01-05] MEDS: potassium chloride ER 10 mEq Tablet 40 MEQ PO (10:06)
[2022-01-05] MEDS: magnesium lactate 84 mg Tablet PO (10:06)
[2022-01-05] MEDS: cefTRIAXone 1,000 MG in sodium chloride 0.9% (plus) 50 ML 100 MG IV (10:06)
[2022-01-05] MEDS: pantoprazole DR 40 mg Tablet PO (10:06)
[2022-01-05] MEDS: sodium chloride 0.9% 500 ML 75 ML IV (11:43)
[2022-01-05] MEDS: enoxaparin 100 mg/mL Syringe 90 MG SUBCUT (11:46)
--- NOTE | 2022-01-05 18:44 | PC.NURSE ---
Patient got into private car to go home by Marianela BORRERO. Patient stated to Marianela BORRERO, Just so you know I will be back up here to the ER at midnight. When patient left the floor she A&Ox3. Respirations were even and non-labored on room air and there no obvious signs of distress noted.
== END 2022-01-05 19:00 | disposition home or self-care (01) | DRG 812 ==
LOC: ER 02:07 → ICU 05:03 → MEDSURG 01-01 16:31
PROVIDERS: Family Medicine; Internal Medicine; Admitting Provider Student in an Organized Health Care Education/Training Program; Emergency Provider Emergency Medicine; PCP Family Medicine; Visit Provider Student in an Organized Health Care Education/Training Program
DX: D64.81 Anemia due to antineoplastic chemotherapy (principal); C77.2 Secondary and unspecified malignant neoplasm of intra-abdominal lymph nodes; I82.423 Acute embolism and thrombosis of iliac vein, bilateral; I82.413 Acute embolism and thrombosis of femoral vein, bilateral; T82.818A Embolism due to vascular prosthetic devices, implants and grafts, initial encounter; R64 Cachexia; N39.0 Urinary tract infection, site not specified; E87.20 Acidosis, unspecified; D84.821 Immunodeficiency due to drugs; D61.1 Drug-induced aplastic anemia; C54.1 Malignant neoplasm of endometrium; T45.1X5A Adverse effect of antineoplastic and immunosuppressive drugs, initial encounter; Y82.9 Unspecified medical devices associated with adverse incidents; Z96.0 Presence of urogenital implants; Z85.6 Personal history of leukemia; Z79.899 Other long term (current) drug therapy; Z79.891 Long term (current) use of opiate analgesic; Z51.5 Encounter for palliative care; Z68.33 Body mass index [BMI] 33.0-33.9, adult; E83.42 Hypomagnesemia; E87.6 Hypokalemia; Z90.49 Acquired absence of other specified parts of digestive tract; Z87.891 Personal history of nicotine dependence; Z96.653 Presence of artificial knee joint, bilateral; I95.1 Orthostatic hypotension; D69.59 Other secondary thrombocytopenia; E86.0 Dehydration
CPT/HCPCS: 12345; 36415; 36430; 36591; 36600; 70450; 71045; 71275; 74177; 80048; 80053; 80069; 81001; 82274; 82533; 82550; 82728; 82803; 83540; 83550; 83605; 83735; 83880; 84145; 84484; 85025; 85610; 85730; 86140; 86850; 86900; 86920; 86927; 87040; 87086; 87150; 87205; 87426; 87493; 87804; 93005; 93306; 93970; 96361; 96372; 96374; 97116; 97161; 97530; 99285; C9113; J0696; J1442; J1644; J1650; J2020; J2405; J2765; J3475; J3480; J7030; J7040; P9016; P9017; P9035; P9040; Q0167; Q9967

== ENCOUNTER 2021-12-31 08:00 | Oncology outpatient (recurring) (ONCR) | payer MEDICARE, OTHER, SELFPAY ==
[2021-12-09] MEDS: magnesium sulfate premix 2 GM/50 ML PIGGYBACK IV (11:37)
[2021-12-09] MEDS: potassium chloride premix 100 ML 100 MEQ IV (11:37)
[2021-12-09] MEDS: sodium chloride 0.9% 500 ML IV (11:37)
[2021-12-09 12:50] VITALS: BP 108/59; PULSE 85; O2SAT 94
[2021-12-10 10:06] LABS: Basophils % 0.3 %; Eosinophils % 0.3 %; Hematocrit 27.2 % (37.0-47.0); Hemoglobin 8.6 g/dL (11.5-15.3); Lymphocytes # 1.3 10^3/uL (0.8-4.8); Lymphocytes % 37.8 %; Mean Corpuscular HGB Conc 31.6 g/dL (30.0-36.0); Mean Corpuscular Hemoglobin 29.2 pg (28.0-34.0); Mean Corpuscular Volume 92.2 fl (81-99); Monocytes # 0.5 10^3/uL (0.2-0.9); Neutrophils # 1.53 10^3/uL (1.8-7.7); Neutrophils % 43.9 %; Nucleated Red Blood Cells % 0 %; Platelet Count 37 10^3/cmm (130-400); Red Blood Count 2.95 10^6/uL (4.1-5.3); Red Cell Distribution Width 15.9 % (12.1-15.1); White Blood Count 3.5 10^3/uL (4.0-10.0)
[2021-12-10 10:34] LABS: Alanine Aminotransferase 8 U/L (0-33); Alkaline Phosphatase 61 U/L (35-105); Anion Gap 23.3 (5-19); Aspartate Amino Transferase 12 U/L (0-32); Blood Urea Nitrogen 9 mg/dL (8-23); Calcium 8.3 mg/dL (8.5-10.5); Carbon Dioxide 22 mmol/L (22-29); Chloride 97 mmol/L (98-107); Glucose 79 mg/dL (65-115); Magnesium 1.5 mg/dL (1.7-2.3); Osmolality Calculated 286 mOsm/kg (285-295); Potassium 3.3 mmol/L (3.5-5.1); Sodium 139 mmol/L (136-145); Total Bilirubin 0.5 mg/dL (0.15-1.2)
[2021-12-10 12:00] VITALS: BP 141/75; PULSE 74; RESP 18; TEMP 36.1; O2SAT 98
[2021-12-10] MEDS: sodium chloride 0.9% 500 ML 999 ML IV (17:07)
[2021-12-12] MEDS: sodium chloride 0.9% 500 ML 999 ML IV (10:18)
[2021-12-12 10:46] LABS: Alanine Aminotransferase 7 U/L (0-33); Alkaline Phosphatase 64 U/L (35-105); Anion Gap 20.7 (5-19); Aspartate Amino Transferase 14 U/L (0-32); Blood Urea Nitrogen 6 mg/dL (8-23); Calcium 8.6 mg/dL (8.5-10.5); Carbon Dioxide 25 mmol/L (22-29); Chloride 98 mmol/L (98-107); Glucose 78 mg/dL (65-115); Magnesium 1.4 mg/dL (1.7-2.3); Osmolality Calculated 286 mOsm/kg (285-295); Potassium 3.7 mmol/L (3.5-5.1); Sodium 140 mmol/L (136-145); Total Bilirubin 0.4 mg/dL (0.15-1.2)
[2021-12-12 11:53] VITALS: BP 118/68; PULSE 77; RESP 16; TEMP 36.6; O2SAT 98
[2021-12-15] MEDS: sodium chloride 0.9% 500 ML 999 ML IV (12:03)
[2021-12-15 12:12] LABS: Basophils % 0.5 %; Eosinophils % 0.2 %; Hematocrit 27.2 % (37.0-47.0); Hemoglobin 8.4 g/dL (11.5-15.3); Lymphocytes # 1.6 10^3/uL (0.8-4.8); Lymphocytes % 38.5 %; Mean Corpuscular HGB Conc 30.9 g/dL (30.0-36.0); Mean Corpuscular Hemoglobin 29.2 pg (28.0-34.0); Mean Corpuscular Volume 94.4 fl (81-99); Mean Platelet Volume 9.3 fL (7.4-10.4); Monocytes # 0.6 10^3/uL (0.2-0.9); Monocytes % 13.9 %; Neutrophils # 1.88 10^3/uL (1.8-7.7); Nucleated Red Blood Cells % 0.5 %; Platelet Count 140 10^3/cmm (130-400); Red Blood Count 2.88 10^6/uL (4.1-5.3); Red Cell Distribution Width 16.7 % (12.1-15.1); White Blood Count 4.2 10^3/uL (4.0-10.0)
[2021-12-15 12:42] LABS: Alanine Aminotransferase 7 U/L (0-33); Albumin Level 2.9 g/dL (3.5-5.2); Alkaline Phosphatase 72 U/L (35-105); Anion Gap 17.3 (5-19); Aspartate Amino Transferase 14 U/L (0-32); Blood Urea Nitrogen 8 mg/dL (8-23); Calcium 8.4 mg/dL (8.5-10.5); Carbon Dioxide 25 mmol/L (22-29); Chloride 98 mmol/L (98-107); Globulin 3.1 g/dL (1.3-4.6); Glucose 80 mg/dL (65-115); Magnesium 1.4 mg/dL (1.7-2.3); Osmolality Calculated 279 mOsm/kg (285-295); Potassium 4.3 mmol/L (3.5-5.1); Sodium 136 mmol/L (136-145); Total Bilirubin 0.4 mg/dL (0.15-1.2)
[2021-12-15 15:16] VITALS: BP 114/71; PULSE 92; RESP 16; TEMP 36.1; O2SAT 96
[2021-12-16 09:03] VITALS: BP 105/66; PULSE 110; RESP 16; TEMP 36.2; O2SAT 94
[2021-12-16 09:19] LABS: Basophils % 0.7 %; Eosinophils % 0.2 %; Hematocrit 27.9 % (37.0-47.0); Hemoglobin 8.7 g/dL (11.5-15.3); Lymphocytes # 1.5 10^3/uL (0.8-4.8); Mean Corpuscular HGB Conc 31.2 g/dL (30.0-36.0); Mean Corpuscular Hemoglobin 29.8 pg (28.0-34.0); Mean Corpuscular Volume 95.5 fl (81-99); Mean Platelet Volume 9.3 fL (7.4-10.4); Monocytes # 0.6 10^3/uL (0.2-0.9); Monocytes % 13.7 %; Neutrophils # 1.88 10^3/uL (1.8-7.7); Neutrophils % 46.2 %; Nucleated Red Blood Cells % 0.5 %; Platelet Count 192 10^3/cmm (130-400); Red Blood Count 2.92 10^6/uL (4.1-5.3); Red Cell Distribution Width 16.8 % (12.1-15.1); White Blood Count 4.1 10^3/uL (4.0-10.0)
[2021-12-16 09:45] LABS: Alanine Aminotransferase < 5 U/L (0-33); Alkaline Phosphatase 76 U/L (35-105); Anion Gap 19.3 (5-19); Aspartate Amino Transferase 15 U/L (0-32); Blood Urea Nitrogen 8 mg/dL (8-23); Calcium 8.6 mg/dL (8.5-10.5); Carbon Dioxide 23 mmol/L (22-29); Chloride 99 mmol/L (98-107); Globulin 3.2 g/dL (1.3-4.6); Glucose 77 mg/dL (65-115); Osmolality Calculated 281 mOsm/kg (285-295); Potassium 4.3 mmol/L (3.5-5.1); Sodium 137 mmol/L (136-145); Total Bilirubin 0.4 mg/dL (0.15-1.2); Total Protein 6.2 g/dL (6.6-8.7)
[2021-12-16 10:27] LABS: Magnesium 1.5 mg/dL (1.7-2.3)
[2021-12-16] MEDS: sodium chloride 0.9% 250 ML 75 ML IV (10:29)
[2021-12-16] MEDS: palonosetron 0.25 mg/5 mL SDV IVP (10:31)
[2021-12-16] MEDS: acetaminophen 325 mg Tablet 650 MG PO (10:31)
[2021-12-16] MEDS: famotidine 20 mg/2 mL INJ IVP (10:32)
[2021-12-16] MEDS: diphenhydrAMINE 50 mg/mL SDV 1mL 25 MG IVP (10:33)
[2021-12-16] MEDS: dexamethasone 20 MG in sodium chloride 0.9% 50 ML 188 MG IV (10:36)
[2021-12-16] MEDS: CARBOplatin 190 MG in sodium chloride 0.9% 500 ML 519 MG IV (11:59)
[2021-12-16 14:00] VITALS: BP 156/90; PULSE 101; RESP 16; TEMP 36.3; O2SAT 93
[2021-12-22] MEDS: sodium chloride 0.9% 500 ML 999 ML IV (14:25)
[2021-12-22 14:35] LABS: Basophils % 0.6 %; Eosinophils % 0.3 %; Hematocrit 27.3 % (37.0-47.0); Hemoglobin 8.5 g/dL (11.5-15.3); Lymphocytes # 1.2 10^3/uL (0.8-4.8); Mean Corpuscular HGB Conc 31.1 g/dL (30.0-36.0); Mean Corpuscular Hemoglobin 29.4 pg (28.0-34.0); Mean Corpuscular Volume 94.5 fl (81-99); Mean Platelet Volume 10.3 fL (7.4-10.4); Monocytes # 0.4 10^3/uL (0.2-0.9); Neutrophils # 1.75 10^3/uL (1.8-7.7); Nucleated Red Blood Cells % 0 %; Platelet Count 177 10^3/cmm (130-400); Red Blood Count 2.89 10^6/uL (4.1-5.3); Red Cell Distribution Width 16.8 % (12.1-15.1); White Blood Count 3.5 10^3/uL (4.0-10.0)
[2021-12-22 15:04] LABS: Alanine Aminotransferase 7 U/L (0-33); Albumin Level 3.4 g/dL (3.5-5.2); Alkaline Phosphatase 69 U/L (35-105); Aspartate Amino Transferase 16 U/L (0-32); Blood Urea Nitrogen 11 mg/dL (8-23); Calcium 8.9 mg/dL (8.5-10.5); Carbon Dioxide 20 mmol/L (22-29); Chloride 97 mmol/L (98-107); Globulin 3.2 g/dL (1.3-4.6); Glucose 103 mg/dL (65-115); Magnesium 1.7 mg/dL (1.7-2.3); Osmolality Calculated 274 mOsm/kg (285-295); Sodium 132 mmol/L (136-145); Total Bilirubin 0.5 mg/dL (0.15-1.2); Total Protein 6.6 g/dL (6.6-8.7)
[2021-12-22 15:07] LABS: Anion Gap 19.4 (5-19); Potassium 4.4 mmol/L (3.5-5.1)
[2021-12-23] MEDS: sodium chloride 0.9% 250 ML 100 ML IV (09:43)
[2021-12-23] MEDS: acetaminophen 325 mg Tablet 650 MG PO (09:45)
[2021-12-23] MEDS: diphenhydrAMINE 50 mg/mL SDV 1mL 25 MG IVP (09:50)
[2021-12-23] MEDS: famotidine 20 mg/2 mL INJ IVP (09:50)
[2021-12-23] MEDS: dexamethasone 20 MG in sodium chloride 0.9% 50 ML 188 MG IV (09:51)
[2021-12-23] MEDS: palonosetron 0.25 mg/5 mL SDV IVP (09:51)
[2021-12-23] MEDS: CARBOplatin 190 MG in sodium chloride 0.9% 500 ML 519 MG IV (11:23)
[2021-12-23 12:43] VITALS: BP 134/82; PULSE 89; TEMP 36.3; O2SAT 96
== END 2022-01-05 23:59 | disposition home or self-care (01) ==
PROVIDERS: PCP Family Medicine; Visit Provider Internal Medicine Hematology & Oncology
DX: C54.1 Malignant neoplasm of endometrium
CPT/HCPCS: 80053; 83735; 85025; 96365; 96366; 96367; 96368; 96375; 96413; 96417; 99214; J1100; J1200; J2469; J3475; J3480; J3490; J7030; J7040; J7050; J9045; J9267

== ENCOUNTER 2022-01-09 09:09 | Emergency (ER) | payer MEDICARE, OTHER, SELFPAY ==
--- NOTE | 2022-01-09 09:13 | XR_ITS ---
WS: [id number] Exam: XR knee LT 3V* [id number] Date/Time of Exam: 01/09/2022 9:25 AM Reason For Exam: pain No obvious acute fracture noted. There is deformity and depression of the lateral tibial plateau whic h may indicate an old fracture. Tricompartmental degenerative change of the knee. Probable loose join t bodies. Effusion in the suprapatellar bursa. XR/XR knee LT 3V* [id number] IMPRESSION: 1. No acute fracture seen. 2. Deformity and depression of the lateral tibial plateau which may represent a n old plateau fracture. 3. Tricompartmental DJD. Joint effusion. There may be loose joint bodies.
[2022-01-09 09:15] VITALS: BP 105/70; PULSE 109; RESP 18; TEMP 36.6; O2SAT 88; BMI 33.3
--- NOTE | 2022-01-09 09:28 | W.ED.EXTPRO ---
HPI - Extremity Problem General: Chief complaint: Extremity Injury, Lower Stated complaint: dehydration, left knee pain/swelling Time Seen by Provider: 01/09/22 09:13 Source: patient History of Present Illness: 76-year-old female well-known to our services. She has a history of endometrial CA and has had minimal difficulty with her chemotherapy she developed some pancytopenia as well as a DVT. She frequently is getting fluids we tried to help her avoid the emergency room by setting up a local oncology to make things easier that has helped somewhat she was recently hospitalized approximately a week and a half ago. She has a known DVT and is currently being monitored for anemia in part thought to be due to her chemotherapy she has no signs of active bleeding. She today she comes in primarily because she has left knee pain which began suddenly she got up off the toilet and had sudden worsening knee pain she has not had any fall or trauma. It is all in her left knee she previously had a right knee arthroplasty. She has bilateral lower extremity DVTs based on venous duplex done on 12/28/2021. She is not having any chest pain or shortness of breath at this time. On the most recent venous duplex there were multifocal occlusive and nonocclusive DVTs throughout the lower extremity extending from common femoral vein to below the knee. She states she is still using her Lovenox regularly. MD Complaint: extremity pain Onset (ago): minute(s) Pain Consistency: constant Location: left and lower extremity Quality: aching Relieving factors: nothing Exacerbating factors: nothing Associated symptoms: Reports myalgias; Deny arthralgias, chest pain, fever(s), rash or short of breath Review of Systems Const: Denies: fever(s), chills, fatigue or malaise ENMT: Denies: throat pain, ear or mastoid pain, nasal discharge or nasal congestion Card: Denies: chest pain, palpitations, irregular heart rhythm or edema Resp: Denies: dyspnea, productive cough or non-productive cough GI: Denies: abdominal pain, nausea, vomiting, hematemesis, coffee ground emesis, diarrhea, constipation, bloating, hematochezia or melena : Denies: flank pain, difficulty voiding, dysuria, urinary frequency or urinary urgency Skin/Breast: Denies: rash or pruritus PFSH ED PFSH: Medical History Acquired immunocompromised state Bilateral hydronephrosis Diffuse large B cell lymphoma Diagnosed 2018 Endometrial carcinoma Myocardial injury On antineoplastic chemotherapy Ovarian cancer Followed in [place] Physical deconditioning Port-A-Cath in place Presence of IVC filter Right leg DVT (06/2021) GSV extending to CFV Status post insertion of nerve stimulator Vancomycin resistant Enterococcus infection Surgical History H/O cataract extraction bilateral eyes H/O tubal ligation History of colon resection History of left knee replacement History of removal of Port-a-Cath History of total right knee replacement History of ureter stent Bilateral, due to obstruction related to malignancy S/P cholecystectomy Status post hysteroscopy 06/11/2021- hysteroscopy with D&C via myosure performed by Dr. Victoria at [facility] Family History Mother , at age Hypertension Cancer pancreatic Father , at age 72 Colon cancer 72 Denies family history of Ovarian cancer Diabetes Clotting disorder Heart disease Hyperlipidemia Breast cancer Anesthesia complication Bleeding disorder Uterine cancer Thyroid condition Stroke Social History Smoking and tobacco status: former smoker (smoked x 15 years) Second hand smoke exposure: No Alcohol intake: never Adopted: No Caregiver/support person: Yes Lives independently: Yes Household members: significant other Housing: House Marital status: / service: No Current occupational status: retired Current occupational exposures/hazards: No Pets and animals: Yes History of recent travel: No Leisure activites: exercise Sexually active: No Current gender identity: Female Cheli/Yarsanism: Restoration Physical Exam Const: GENERAL APPEARANCE: cooperative and comfortable ORIENTATION/CONSCIOUSNESS: Yes awake, Yes oriented to person, Yes oriented to place and Yes oriented to time HENMT: COMMON NORMALS: normocephalic, atraumatic and hearing grossly normal bilaterally HEAD & SCALP: normocephalic and atraumatic Resp: COMMON NORMALS: normal respiratory effort, No retractions, No use of accessory muscles and clear to auscultation bilaterally AUSCULTATION: clear to auscultation bilaterally Cardio: COMMON NORMALS: regular rate, regular rhythm and No murmurs present (Cardio) RATE: regular rate RHYTHM: regular rhythm GI: COMMON NORMALS: Soft to palpation and No hepatosplenomegaly present AUSCULTATION: Yes normoactive bowel sounds PALPATION: Yes Soft to palpation, No Tenderness to palpation present (GI), No Guarding due to palpation present (GI) and Yes No hepatosplenomegaly present Extremity: COMMON NORMALS: normal to inspection, capillary refill normal, no clubbing, cyanosis or edema, no calf tenderness and no pedal edema Neuro: SENSORIUM/ORIENTATION: Yes oriented to person, Yes oriented to place and Yes oriented to time Skin: COMMON NORMALS: no rashes or lesions noted GENERAL SKIN EXAM: no rashes or lesions noted Course Vital Signs: Vital signs: Vital Signs Temperature 97.8 F 01/09/22 09:15 Pulse Rate 101 H 01/09/22 11:00 Respiratory Rate 18 01/09/22 09:15 Blood Pressure 137/72 01/09/22 11:06 Pulse Oximetry 90 01/09/22 11:00 Oxygen Delivery Me thod 01/09/22 11:00 MDM - Extremity (Nontraumatic) Medical Decision Making Labs and imaging reviewed. No acute fracture looks like there may be an old fracture in the knee. She is currently on treatment for DVTs on Lovenox. Her potassium and her magnesium replacement will increase her home supplements that she is taking on a scheduled basis she has a follow-up appointment next week with oncology. Patient hence that she may be interested in stopping chemotherapy treatments encouraged her to discuss with Dr. Baugh. Medical Records I reviewed the patient's medical records. Lab Data I reviewed the patient's lab results. : 01/09/22 09:50 01/09/22 09:50 Radiology Impressions Knee X-Ray 01/09/22 09:13 IMPRESSION: 1. No acute fracture seen. 2. Deformity and depression of the lateral tibial plateau which may represent an old plateau fracture. 3. Tricompartmental DJD. Joint effusion. There may be loose joint bodies. Laboratory Results WBC 3.8 10^3/uL (4.0-10.0) L 01/09/22 09:50 RBC 3.22 10^6/uL (4.1-5.3) L 01/09/22 09:50 Hgb 9.1 g/dL (11.5-15.3) L 01/09/22 09:50 Hct 29.7 % (37.0-47.0) L 01/09/22 09:50 MCV 92.2 fl (81-99) 01/09/22 09:50 MCH 28.3 pg (28.0-34.0) 01/09/22 09:50 MCHC 30.6 g/dL (30.0-36.0) 01/09/22 09:50 RDW 19.5 % (12.1-15.1) H 01/09/22 09:50 Plt Count 74 10^3/cmm (130-400) L 01/09/22 09:50 MPV 9.9 fL (7.4-10.4) 01/09/22 09:50 Neut % (Auto) 55.8 % 01/09/22 09:50 Lymph % (Auto) 26.6 % 01/09/22 09:50 [place] % (Auto) 12.9 % 01/09/22 09:50 Eos % (Auto) 0.5 % 01/09/22 09:50 Baso % (Auto) 0.5 % 01/09/22 09:50 Neut # (Auto) 2.12 10^3/uL (1.8-7.7) 01/09/22 09:50 Lymph # (Auto) 1.0 10^3/uL (0.8-4.8) 01/09/22 09:50 [place] # (Auto) 0.5 10^3/uL (0.2-0.9) 01/09/22 09:50 Eos # (Auto) 0.0 10^3/uL (0.0-0.8) 01/09/22 09:50 Baso # (Auto) 0.0 10^3/uL (0.0-0.1) 01/09/22 09:50 Nucleated RBC % (auto) 0 % 01/09/22 09:50 Nucleated RBCs # 0.0 /100WBC 01/09/22 09:50 Sodium 131 mmol/L (136-145) L 01/09/22 09:50 Potassium 3.4 mmol/L (3.5-5.1) L 01/09/22 09:50 Chloride 95 mmol/L (98-107) L 01/09/22 09:50 Carbon Dioxide 21 mmol/L (22-29) L 01/09/22 09:50 Anion Gap 18.4 (5-19) 01/09/22 09:50 BUN 14 mg/dL (8-23) 01/09/22 09:50 Creatinine 0.8 mg/dL (0.5-0.9) 01/09/22 09:50 GFR Calculation Not Reportable 01/09/22 09:50 Glucose 88 mg/dL (65-115) 01/09/22 09:50 Calculated Osmolality 272 mOsm/kg (285-295) L 01/09/22 09:50 Calcium 8.3 mg/dL (8.5-10.5) L 01/09/22 09:50 Magnesium 1.5 mg/dL (1.7-2.3) L 01/09/22 09:50 Total Bilirubin 0.6 mg/dL (0.15-1.2) 01/09/22 09:50 AST 6 U/L (0-32) 01/09/22 09:50 ALT < 5 U/L (0-33) 01/09/22 09:50 Alkaline Phosphatase 65 U/L (35-105) 01/09/22 09:50 Total Protein 5.6 g/dL (6.6-8.7) L 01/09/22 09:50 Albumin 2.9 g/dL (3.5-5.2) L 01/09/22 09:50 Globulin 2.7 g/dL (1.3-4.6) 01/09/22 09:50 Discharge Plan Discharge Patient Disposition: Home Clinical Impression: Acute pain of left knee, Hypomagnesemia, Hypokalemia, Drug-induced leukopenia, Electrolyte abnormality, Anemia following use of chemotherapeutic drug, Endometrial carcinoma Condition: Stable Prescriptions: Changed potassium chloride 20 mEq tablet,ER particles/crystals 40 meq PO TID Qty: 120 0RF magnesium oxide 400 mg (241.3 mg magnesium) tablet 800 mg PO BID Qty: 60 0RF No Action loratadine [Claritin] 10 mg Tablet 10 mg PO DAILY PRN (Reason: Allergy Symptoms) hydrocodone-acetaminophen 5-325 mg Tablet 1 tab PO Q4H PRN (Reason: Pain) ondansetron 4 mg tablet,disintegrating 4 mg PO Q6H PRN (Reason: nausea and vomiting) Qty: 14 0RF methylphenidate HCl 10 mg Tablet 5 mg PO QAM Qty: 30 0RF Rx Instructions: didnt fill rx written on 01/05/22 methylphenidate HCl 10 mg Tablet 5 mg PO DAILY@1200 Qty: 30 0RF Rx Instructions: didnt fill rx written on 01/05/22 sucralfate 100 mg/mL Suspension 1 g PO AC&BEDTIME Qty: 300 0RF pantoprazole 40 mg Tablet,Delayed Release (Dr/Ec) 40 mg PO BID Qty: 60 0RF enoxaparin 100 mg/mL Syringe 90 mg SUBCUT Q12H Qty: 60 0RF magnesium L-lactate [Magtab] 84 mg Tablet Extended Release 84 mg PO BID Qty: 60 0RF duloxetine 30 mg Capsule,Delayed Release(Dr/Ec) 30 mg PO BID promethazine 25 mg tablet 25 mg PO Q6H PRN (Reason: nausea and vomiting) Qty: 20 0RF paclitaxel 6 mg/mL Concentrate See Rx Instructions .ROUTE .COMPLEX Rx Instructions: 116mg weekly for 3 weeks then off for one week palonosetron [Aloxi] 0.25 mg/5 mL Solution 0.25 mg IV .WEEKLY TREATMENT carboplatin 10 mg/mL Solution See Rx Instructions .ROUTE .COMPLEX Rx Instructions: 190mg weekly for 3 weeks then off for one week dexamethasone sodium phos (PF) 10 mg/mL Syringe See Rx Instructions .ROUTE .COMPLEX Rx Instructions: 20mg iv on treatment day Compazine 10 mg Tablet 10 mg PO Q4H PRN (Reason: Nausea) Benadryl Allergy 25 mg Tablet 25 mg PO DAILY PRN (Reason: Allergy Symptoms) Discharge Orders: Discharge ED (Routine); Ordered 01/09/22 Ordered By: Edwin Cruz Referrals: Nils Gambino DO [Primary Care Provider] - Discharge Diet: Usual diet Discharge Activity: Resume usual activity and Increase activity as tolerated Patient Instructions: Opioid Safety, Pain Management Activity Restrictions/Additional Instructions: Follow-up with oncology next week for repeat lab work and discussion of treatment plans. 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
[2022-01-09] MEDS: sodium chloride 0.9% 1,000 ML 999 ML IV ×2 (09:56→10:51)
[2022-01-09 10:09] LABS: Basophils % 0.5 %; Eosinophils % 0.5 %; Hematocrit 29.7 % (37.0-47.0); Hemoglobin 9.1 g/dL (11.5-15.3); Lymphocytes % 26.6 %; Mean Corpuscular HGB Conc 30.6 g/dL (30.0-36.0); Mean Corpuscular Hemoglobin 28.3 pg (28.0-34.0); Mean Corpuscular Volume 92.2 fl (81-99); Mean Platelet Volume 9.9 fL (7.4-10.4); Monocytes # 0.5 10^3/uL (0.2-0.9); Monocytes % 12.9 %; Neutrophils # 2.12 10^3/uL (1.8-7.7); Neutrophils % 55.8 %; Nucleated Red Blood Cells % 0 %; Platelet Count 74 10^3/cmm (130-400); Red Blood Count 3.22 10^6/uL (4.1-5.3); Red Cell Distribution Width 19.5 % (12.1-15.1); White Blood Count 3.8 10^3/uL (4.0-10.0)
[2022-01-09 10:24] LABS: Alanine Aminotransferase < 5 U/L (0-33); Albumin Level 2.9 g/dL (3.5-5.2); Alkaline Phosphatase 65 U/L (35-105); Anion Gap 18.4 (5-19); Aspartate Amino Transferase 6 U/L (0-32); Blood Urea Nitrogen 14 mg/dL (8-23); Calcium 8.3 mg/dL (8.5-10.5); Carbon Dioxide 21 mmol/L (22-29); Chloride 95 mmol/L (98-107); Globulin 2.7 g/dL (1.3-4.6); Glucose 88 mg/dL (65-115); Magnesium 1.5 mg/dL (1.7-2.3); Osmolality Calculated 272 mOsm/kg (285-295); Potassium 3.4 mmol/L (3.5-5.1); Sodium 131 mmol/L (136-145); Total Bilirubin 0.6 mg/dL (0.15-1.2); Total Protein 5.6 g/dL (6.6-8.7)
--- NOTE | 2022-01-09 10:40 | PC.PHAR ---
pts isela [phone] verified pts medications-isela states he will go to the [facility] and olive picker the rest of the pts enoxapain injections-isela states the pt hasnt taken the kcl 40meq bid and mag ox 400mg bid since 01/05/22 since taking the magtab 84mg bid-states the pt didnt fill the methylphenidate 5mg bid states the pt said she didnt need it and states the pt doesnt get meds sometimes because of the cost-cancer medications entered are what fernie from the cancer treatment center states the pt gets-notes are made in the pharmacy comments
[2022-01-09 11:00] VITALS: BP 105/70; PULSE 101; O2SAT 90
[2022-01-09 11:06] VITALS: BP 137/72
[2022-01-09] MEDS: magnesium oxide 400 mg tablet 800 MG PO (12:21)
[2022-01-09] MEDS: potassium chloride oral liq 20 mEq/15 mL UDC 40 MEQ PO (12:22)
[2022-01-09 13:19] VITALS: BP 135/81
== END 2022-01-09 13:21 | disposition home or self-care (01) ==
PROVIDERS: Emergency Provider Family Medicine; PCP Family Medicine
DX: E83.42 Hypomagnesemia (principal); E87.6 Hypokalemia; D70.2 Other drug-induced agranulocytosis; D64.81 Anemia due to antineoplastic chemotherapy; T45.1X5A Adverse effect of antineoplastic and immunosuppressive drugs, initial encounter; C54.1 Malignant neoplasm of endometrium; M25.562 Pain in left knee; Z87.891 Personal history of nicotine dependence; Z85.72 Personal history of non-Hodgkin lymphomas; Z85.43 Personal history of malignant neoplasm of ovary; Z96.653 Presence of artificial knee joint, bilateral
CPT/HCPCS: 73562; 80053; 83735; 85025; 96360; 96361; 99284; J7030

== ENCOUNTER 2022-01-16 08:00 | Oncology outpatient (recurring) (ONCR) | payer MEDICARE, OTHER, SELFPAY ==
[2022-01-15] MEDS: sodium chloride 0.9% 1,000 ML 999 ML IV (11:00)
[2022-01-15 11:06] LABS: Basophils % 0.4 %; Eosinophils # 0.1 10^3/uL (0.0-0.8); Eosinophils % 1.2 %; Hematocrit 29.1 % (37.0-47.0); Hemoglobin 9.1 g/dL (11.5-15.3); Lymphocytes # 1.4 10^3/uL (0.8-4.8); Lymphocytes % 28.3 %; Mean Corpuscular HGB Conc 31.3 g/dL (30.0-36.0); Mean Corpuscular Hemoglobin 28.6 pg (28.0-34.0); Mean Corpuscular Volume 91.5 fl (81-99); Mean Platelet Volume 9.8 fL (7.4-10.4); Monocytes # 0.4 10^3/uL (0.2-0.9); Neutrophils # 3.13 10^3/uL (1.8-7.7); Neutrophils % 62.3 %; Nucleated Red Blood Cells % 0 %; Platelet Count 106 10^3/cmm (130-400); Red Blood Count 3.18 10^6/uL (4.1-5.3); Red Cell Distribution Width 19.9 % (12.1-15.1)
[2022-01-15 11:23] LABS: Alanine Aminotransferase < 5 U/L (0-33); Albumin Level 2.9 g/dL (3.5-5.2); Alkaline Phosphatase 61 U/L (35-105); Anion Gap 20.3 (5-19); Aspartate Amino Transferase 8 U/L (0-32); Blood Urea Nitrogen 5 mg/dL (8-23); Calcium 8.6 mg/dL (8.5-10.5); Carbon Dioxide 20 mmol/L (22-29); Chloride 95 mmol/L (98-107); Glucose 82 mg/dL (65-115); Magnesium 1.5 mg/dL (1.7-2.3); Osmolality Calculated 270 mOsm/kg (285-295); Potassium 3.3 mmol/L (3.5-5.1); Sodium 132 mmol/L (136-145); Total Bilirubin 0.5 mg/dL (0.15-1.2); Total Protein 5.9 g/dL (6.6-8.7)
== END 2022-02-04 23:59 | disposition home or self-care (01) ==
PROVIDERS: Nurse Practitioner; PCP Family Medicine; Visit Provider Internal Medicine Hematology & Oncology
DX: C54.1 Malignant neoplasm of endometrium; D64.81 Anemia due to antineoplastic chemotherapy; D70.1 Agranulocytosis secondary to cancer chemotherapy; T45.1X5A Adverse effect of antineoplastic and immunosuppressive drugs, initial encounter; E83.42 Hypomagnesemia; E87.6 Hypokalemia; R19.7 Diarrhea, unspecified; Z79.899 Other long term (current) drug therapy
CPT/HCPCS: 80053; 83735; 85025; 86850; 86900; 96365; J3475; J7030

== ENCOUNTER 2022-01-18 23:19 | Inpatient (IN) | payer MEDICARE, OTHER, SELFPAY ==
[2022-01-18 23:21] VITALS: BP 84/51; PULSE 119; RESP 18; O2SAT 94; BMI 33.3
[2022-01-18 23:27] VITALS: TEMP 36.5
--- NOTE | 2022-01-18 23:56 | XRR_ITS ---
PROCEDURE INFORMATION: Exam: XR Chest Exam date and time: 01/19/2022 1:03 AM Age: 76 years old Clinical indication: Other: Weakness; Prior surgery; Surgery date: 1-6 months; Surgery type: Port for ovarian and uterine CA TECHNIQUE: Imaging protocol: Radiologic exam of the chest. Views: 1 view. COMPARISON: CR (CHEST, ) 12/28/2021 2:03 AM FINDINGS: Tubes, catheters and devices: MediPort catheter is placed via the right subclavian vein with its tip at the level of the superior cavoatrial junction. Lungs: Unremarkable. No consolidation. Pleural spaces: Unremarkable. No pleural effusion. No pneumothorax. Heart/Mediastinum: Unremarkable. No cardiomegaly. Bones/joints: Unremarkable. XR/XR chest 1V portable [id number] IMPRESSION: 1. MediPort catheter placed with tip at the level of the superior cavoatrial junction. 2. Stable appearance of the chest compared with 12/28/2021.
--- NOTE | 2022-01-18 23:58 | ECG_ITS ---
[facility] Test Date: 2022-01-19 Pat Name: Francie Levine Department: Room: Gender: Female Tank Charger: : 1945 Requested By: Russ Flores Order Number: [id number] Diana MD: Joanne Muller M.D. Measurements Intervals [place] Rate: 104 P: 3 WI: 128 QRS: -40 QRSD: 92 T: 127 QT: 343 QTc: 453 Interpretive Statements SINUS TACHYCARDIA WITH OCCASIONAL VENTRICULAR PREMATURE COMPLEXES LEFT AXIS DEVIATION [QRS AXIS < -30] POSSIBLE ANTERIOR MYOCARDIAL INFARCTION , PROBABLY OLD [30 ms Q WAVE IN V3/V4, OR R < 0.2 mV IN V4] MODERATE T-WAVE ABNORMALITY, CONSIDER LATERAL ISCHEMIA [-0.1+ mV T-WAVE IN I/aVL/V5/V6] Compared to ECG 12/28/2021 14:12:27 Ventricular premature complex(es) now present Myocardial infarct finding now present Sinus rhythm no longer present T-wave abnormality still present Possible ischemia still present Electronically Signed On 01-20-2022 7:01:32 REELING MACHINE SETUP OPERATOR by Joanne Muller M.D. [email or web address]
[2022-01-19] VITALS (188 sets, daily range): BP systolic 71–146; BP diastolic 45–91; PULSE 64–106; RESP 9–95; TEMP 36.3–36.8; O2SAT 78–100; BMI 33.3
[2022-01-19] MEDS: sodium chloride 0.9% 1,000 ML 999 ML IV ×3 (00:38→05:07)
--- NOTE | 2022-01-19 00:48 | XRR_ITS ---
PROCEDURE INFORMATION: Exam: XR Abdomen Exam date and time: 01/19/2022 1:53 AM Age: 76 years old Clinical indication: Abdominal pain; Generalized; Patient HX: New ovarian CA finding, PT currently undergoing chemo. Has not had surgery yet per PT; Additional info: Abd pain, vomiting TECHNIQUE: Imaging protocol: Radiologic exam of the abdomen. Views: Frontal supine view of the abdomen. 1 View. COMPARISON: CT abdomen pelvis w con* [id number] 12/28/2021 4:36 AM FINDINGS: Tubes, catheters and devices: There are bilateral double pigtail ureteral stents present. Gastrointestinal tract: Normal. No bowel dilation. Bones/joints: Unremarkable. XR/XR KUB portable [id number] IMPRESSION: A nonobstructive bowel gas pattern is seen.
[2022-01-19] MEDS: ondansetron 2 mg/ML SDV 2 mL 8 MG IVP (01:03)
[2022-01-19 01:05] LABS: Alanine Aminotransferase < 5 U/L (0-33); Albumin Level 2.4 g/dL (3.5-5.2); Alkaline Phosphatase 59 U/L (35-105); Anion Gap 20.8 (5-19); Aspartate Amino Transferase 6 U/L (0-32); Blood Urea Nitrogen 10 mg/dL (8-23); C Reactive Protein 202.6 mg/L (0.0-4.9); Calcium 8.2 mg/dL (8.5-10.5); Carbon Dioxide 19 mmol/L (22-29); Chloride 89 mmol/L (98-107); Globulin 2.9 g/dL (1.3-4.6); Glucose 94 mg/dL (65-115); Magnesium 1.6 mg/dL (1.7-2.3); Osmolality Calculated 261 mOsm/kg (285-295); Sodium 126 mmol/L (136-145); Total Bilirubin 0.5 mg/dL (0.15-1.2); Total Protein 5.3 g/dL (6.6-8.7)
[2022-01-19 01:06] LABS: Lactate (Lactic Acid level) 1.4 mmol/L (0.5-2.2)
[2022-01-19 01:12] LABS: Potassium 2.8 mmol/L (3.5-5.1)
[2022-01-19 01:16] LABS: Hematocrit 28.8 % (37.0-47.0); Hemoglobin 8.9 g/dL (11.5-15.3); Mean Corpuscular HGB Conc 30.9 g/dL (30.0-36.0); Mean Corpuscular Hemoglobin 28.3 pg (28.0-34.0); Mean Corpuscular Volume 91.7 fl (81-99); Mean Platelet Volume 9.5 fL (7.4-10.4); Platelet Count 114 10^3/cmm (130-400); Red Blood Count 3.14 10^6/uL (4.1-5.3); Red Cell Distribution Width 19.7 % (12.1-15.1); White Blood Count 4.3 10^3/uL (4.0-10.0)
[2022-01-19 01:19] LABS: Total Cells Counted 100 (0-100)
[2022-01-19 01:23] LABS: Absolute Segmented Neutrophil 2.9 10/cmm (1.6-7.1); Band Neutrophils Absolute 1.2 10^3/cmm (0.0-1.2); Eosinophils 0 %; Lymphocytes 4 %; Lymphocytes Absolute 0.2 10^3/cmm (1.2-3.4); Platelet Estimate Decreased (Normal); Rouleau 1+; Segmented Neutrophils 67 %; Toxic Granulation 1+; Toxic Vacuolation 1+
--- NOTE | 2022-01-19 01:29 | CTR_ITS ---
PROCEDURE INFORMATION: Exam: CT Abdomen And Pelvis With Contrast Exam date and time: 01/19/2022 1:53 AM Age: 76 years old Clinical indication: Vomiting; Abdominal pain; Generalized; Patient HX: New chemo PT. Ovarian CA, has not undergone surgery yet per PT; Additional info: Abd pain, vomiting, HX of sbo TECHNIQUE: Imaging protocol: Computed tomography of the abdomen and pelvis with contrast. Radiation optimization: All CT scans at this facility use at least one of these dose optimization techniques: automated exposure control; mA and/or kV adjustment per patient size (includes targeted exams where dose is matched to clinical indication); or iterative reconstruction. Contrast material: OMNI 350; Contrast volume: 100 ml; Contrast route: INTRAVENOUS (IV); COMPARISON: CT abdomen pelvis w con* [id number] 12/28/2021 4:36 AM RADIATION DOSE METRICS: Total DLP (mGy-cm): 778.64 FINDINGS: Tubes, catheters and devices: There are double pigtail ureteral stents present. The lower loops are present within the urinary bladder, the upper loops are seen within the renal pelvis. Liver: Normal. No mass. Gallbladder and bile ducts: Status post cholecystectomy. Pancreas: Normal. No ductal dilation. Spleen: Punctate calcifications are seen in the spleen compatible calcified granulomas. Adrenal glands: Normal. No mass. Kidneys and ureters: See Tubes, catheters and devices finding. Stomach and bowel: The there is an anastomosis seen in the distal sigmoid colon. There is diffuse bowel wall thickening and edema seen within the descending colon, the bowel wall measuring up to 10.8 mm in thickness. Appendix: No evidence of appendicitis. Intraperitoneal space: Unremarkable. No free air. No significant fluid collection. Vasculature: There is an inferior vena caval filter present, its apex is at the confluence of the renal veins. Thrombus material is again seen in the inferior vena cava within the filter and within the inferior vena cava on the right slightly less prominent today compared with 12/28/2021. There is thrombus near the confluence of the left common iliac vein again appearing less prominent in today's examination. There is thrombus seen within the common femoral veins bilaterally and within the right external iliac vein. Lymph nodes: Unremarkable. No enlarged lymph nodes. Urinary bladder: Unremarkable as visualized. Reproductive: See Bones/joints finding. Bones/joints: There is a cystic mass again seen within the left hemipelvis similar in size and configuration compared with 12/28/2021. There is soft tissue attenuation that extends from the cyst is contiguous with the uterus and sigmoid colonic bowel wall adjacent to the anastomosis. Low attenuation is seen within the pelvis posteriorly compatible with some presacral edema. Prominent compression fractures T11-L1 are again seen. There is diffuse sclerosis seen within T11, L1, L2 and L3 vertebral bodies likely representing sclerotic metastatic lesions. Soft tissues: Unremarkable. CT/CT abdomen pelvis w con* [id number] IMPRESSION: 1. An inferior vena caval filter is present with its apex at the confluence of the renal veins. Thrombus material is again seen within the inferior vena cava and left common iliac vein but appearing slightly improved in today's examination. Thrombus material is seen within the common femoral veins bilaterally and within the external iliac vein on the right. 2. There is diffuse bowel wall thickening and edema seen within the descending colon, the bowel wall measuring up to 10.8 mm in thickness. 3. A cystic mass is again seen within the left hemipelvis unchanged in size and configuration compared with 12/28/2021. The cyst appears to be tethered to the uterus and sigmoid colon. 4. Presacral edema 5. Otherwise stable CT appearance of the abdomen pelvis compared with 12/28/2021. COMMENTS: For patients with an IVC filter, recommend assessment for a management plan for the patient's IVC filter. If there is no established management plan, recommend referral to an interventional clinician on a nonemergent basis for evaluation.
[2022-01-19] MEDS: iohexol 350 mg/mL 500 mL Btl (per mL) IV ×2 (01:57→05:09)
[2022-01-19] MEDS: potassium chloride ER 20 mEq Tablet 40 MEQ PO (02:19)
[2022-01-19] MEDS: potassium chloride premix 100 ML 50 MEQ IV (02:19)
--- NOTE | 2022-01-19 04:13 | W.ED.WEAKNES ---
HPI - Weakness General: Chief complaint: Weakness Stated complaint: dehydration, weakness, cancer patient Time Seen by Provider: 01/18/22 23:32 Source: patient History of Present Illness: 76-year-old female with a history of endometrial cancer. Last chemotherapy treatment was last Wednesday, 7 days ago. She presents with a sudden onset of generalized weakness, nausea, and vomiting with generalized belly pain. She believes she is dehydrated, as she has had the symptoms in the past. Blood pressure was low. She has had some diarrhea which is a chronic problem for her. No fever. MD Complaint: generalized weakness Onset (ago): hour(s) Duration: constant Location: generalized Migration: none Severity: moderate Quality: aching Relieving factors: none Associated symptoms: Reports chills, headache(s), nausea and vomiting; Denies chest pain, confusion, melena, fever(s) or short of breath Review of Systems Const: Reports: chills; Denies: fever(s) Eyes: Denies: change in vision ENMT: Denies: throat pain Card: Denies: chest pain Resp: Denies: dyspnea, productive cough or non-productive cough GI: Reports: nausea and vomiting; Denies: melena Musc: Reports: back pain Neuro: Reports: headache(s); Denies: confusion PFSH ED PFSH: Medical History Acquired immunocompromised state Bilateral hydronephrosis Diffuse large B cell lymphoma Diagnosed 2018 Endometrial carcinoma Myocardial injury On antineoplastic chemotherapy Ovarian cancer Followed in [place] Physical deconditioning Port-A-Cath in place Presence of IVC filter Right leg DVT (06/2021) GSV extending to CFV Status post insertion of nerve stimulator Vancomycin resistant Enterococcus infection Surgical History H/O cataract extraction bilateral eyes H/O tubal ligation History of colon resection History of left knee replacement History of removal of Port-a-Cath History of total right knee replacement History of ureter stent Bilateral, due to obstruction related to malignancy S/P cholecystectomy Status post hysteroscopy 06/11/2021- hysteroscopy with D&C via myosure performed by Dr. Victoria at [facility] Family History Mother , at age Hypertension Cancer pancreatic Father , at age 72 Colon cancer 72 Denies family history of Ovarian cancer Diabetes Clotting disorder Heart disease Hyperlipidemia Breast cancer Anesthesia complication Bleeding disorder Uterine cancer Thyroid condition Stroke Social History Smoking and tobacco status: former smoker (smoked x 15 years) Second hand smoke exposure: No Alcohol intake: never Adopted: No Caregiver/support person: Yes Lives independently: Yes Household members: significant other Housing: House Marital status: / service: No Current occupational status: retired Current occupational exposures/hazards: No Pets and animals: Yes History of recent travel: No Leisure activites: exercise Sexually active: No Current gender identity: Female Cheli/Restorationist: Baptism Physical Exam Const: GENERAL APPEARANCE: cooperative, ill appearing and frail appearing HENMT: COMMON NORMALS: normocephalic, atraumatic and Normal external nose present HEAD & SCALP: normocephalic and atraumatic FACE & SINUS: normal facial exam and face symmetric NOSE: Normal external nose present MOUTH: moist mucous membranes abnormal Details: parched THROAT: posterior oropharynx normal Eye: COMMON NORMALS: Equal, round and reactive pupils present and EOMs intact bilaterally PUPIL: Yes Equal, round and reactive pupils present Neck/C-Spine: GENERAL: Yes trachea midline Chest: CHEST: Yes Symmetrical chest wall rise Resp: COMMON NORMALS: normal respiratory effort and No use of accessory muscles Cardio: COMMON NORMALS: regular rate and regular rhythm RATE: regular rate RHYTHM: regular rhythm GI: COMMON NORMALS: Normal to inspection, nondistended, normoactive bowel sounds present INSPECTION: Yes abdominal distension PALPATION: Yes Tenderness to palpation present (GI) (diffuse) Extremity: GENERAL: Yes edema (minimal) Neuro: WILMAR COMA SCALE: document GCS findings Wil[place] coma scale eye opening: Spontaneous [place] coma scale verbal response: Orientated [place] coma scale motor response: Obey commands [place] coma scale total score: 15 Psych: COMMON NORMALS: mental status grossly normal and cooperative Course Vital Signs: Vital signs: Vital Signs Temperature 97.7 F 01/18/22 23:27 Pulse Rate 82 01/19/22 05:31 Respiratory Rate 16 01/19/22 05:31 Blood Pressure 81/47 01/19/22 05:31 Pulse Oximetry 100 01/19/22 05:31 Oxygen Delivery Me thod 01/18/22 23:21 MDM - Weakness Medical Decision Making CRP is elevated. Hemoglobin is 9. White blood cell count is 4.3. She is not neutropenic. Potassium is low at 2.8 and is repleted. Sodium is 126. Bicarbonate is 19. This patient is given 2 L of fluid bolus. She is given 40 mEq of potassium orally and 20 IV. She has chronic DVT changes around her filter and on CT. She also has some bowel wall thickening and edema of the descending colon. She was feeling much improved after 2 L. She wished to go home. Last, her blood pressure remains low at 80/50. She is awake and talking. She will have to be admitted for continued fluid support. Third liter bolus is going. Patient has received hydrocortisone for adrenal insufficiency. We have not made significant gains in her blood pressure. She will go to the ICU. Hospitalist is seeing the patient and agrees. They wanted to rule out PE with CTA prior to her going over as she is already on Lovenox and if she would have had a PE she might require thrombectomy. CTA is clear. Lab Data : 01/19/22 00:35 01/19/22 00:35 Radiology Impressions Chest X-Ray 01/18/22 23:56 IMPRESSION: 1. MediPort catheter placed with tip at the level of the superior cavoatrial junction. 2. Stable appearance of the chest compared with 12/28/2021. KUB X-Ray 01/19/22 00:48 IMPRESSION: A nonobstructive bowel gas pattern is seen. Abdomen/Pelvis CT 01/19/22 01:29 IMPRESSION: 1. An inferior vena caval filter is present with its apex at the confluence of the renal veins. Thrombus material is again seen within the inferior vena cava and left common iliac vein but appearing slightly improved in today's examination. Thrombus material is seen within the common femoral veins bilaterally and within the external iliac vein on the right. 2. There is diffuse bowel wall thickening and edema seen within the descending colon, the bowel wall measuring up to 10.8 mm in thickness. 3. A cystic mass is again seen within the left hemipelvis unchanged in size and configuration compared with 12/28/2021. The cyst appears to be tethered to the uterus and sigmoid colon. 4. Presacral edema 5. Otherwise stable CT appearance of the abdomen pelvis compared with 12/28/2021. COMMENTS: For patients with an IVC filter, recommend assessment for a management plan for the patient's IVC filter. If there is no established management plan, recommend referral to an interventional clinician on a nonemergent basis for evaluation. Chest CTA 01/19/22 04:29 IMPRESSION: 1. There is no evidence for pulmonary emboli. 2. There are no acute chest findings. Laboratory Results WBC 4.3 10^3/uL (4.0-10.0) 01/19/22 00:35 RBC 3.14 10^6/uL (4.1-5.3) L 01/19/22 00:35 Hgb 8.9 g/dL (11.5-15.3) L 01/19/22 00:35 Hct 28.8 % (37.0-47.0) L 01/19/22 00:35 MCV 91.7 fl (81-99) 01/19/22 00:35 MCH 28.3 pg (28.0-34.0) 01/19/22 00:35 MCHC 30.9 g/dL (30.0-36.0) 01/19/22 00:35 RDW 19.7 % (12.1-15.1) H 01/19/22 00:35 Plt Count 114 10^3/cmm (130-400) L 01/19/22 00:35 MPV 9.5 fL (7.4-10.4) 01/19/22 00:35 Lymph % (Auto) Not Reportable 01/19/22 00:35 Garrard % (Auto) Not Reportable 01/19/22 00:35 Lymph # (Auto) Not Reportable 01/19/22 00:35 Garrard # (Auto) Not Reportable 01/19/22 00:35 Total Counted 100 (0-100) 01/19/22 00:35 Atypical Lymphs % 0.0 % (0-5) 01/19/22 00:35 Absolute Neutrophils 4.0 10^3/cmm (1.4-6.5) 01/19/22 00:35 Segmented Neutrophils 67 % 01/19/22 00:35 Abs Segm Neuts (Man) 2.9 10/cmm (1.6-7.1) 01/19/22 00:35 Band Neutrophils 27.0 % 01/19/22 00:35 Abs Band Neuts (Man) 1.2 10^3/cmm (0.0-1.2) 01/19/22 00:35 Absolute Lymphocytes 0.2 10^3/cmm (1.2-3.4) L 01/19/22 00:35 Lymphocytes (Manual) 4 % 01/19/22 00:35 Monocytes (Manual) 1.0 % 01/19/22 00:35 Absolute Monocytes 0.0 10^3/cmm (0.1-0.6) L 01/19/22 00:35 Eosinophils (Manual) 0 % 01/19/22 00:35 Absolute Eosinophils 0.0 10^3/cmm (0.0-0.7) 01/19/22 00:35 Basophils (Manual) 0.0 % 01/19/22 00:35 Absolute Basophils 0.0 10^3/cmm (0.0-0.2) 01/19/22 00:35 Myelocytes 1.0 % 01/19/22 00:35 Toxic Granulation 1+ H 01/19/22 00:35 Toxic Vacuolation 1+ H 01/19/22 00:35 Platelet Estimate Decreased (Normal) L 01/19/22 00:35 Rouleaux 1+ H 01/19/22 00:35 Sodium 126 mmol/L (136-145) L 01/19/22 00:35 Potassium 2.8 mmol/L (3.5-5.1) L* 01/19/22 00:35 Chloride 89 mmol/L (98-107) L 01/19/22 00:35 Carbon Dioxide 19 mmol/L (22-29) L 01/19/22 00:35 Anion Gap 20.8 (5-19) H 01/19/22 00:35 BUN 10 mg/dL (8-23) 01/19/22 00:35 Creatinine 0.7 mg/dL (0.5-0.9) 01/19/22 00:35 GFR Calculation Not Reportable 01/19/22 00:35 Glucose 94 mg/dL (65-115) 01/19/22 00:35 Calculated Osmolality 261 mOsm/kg (285-295) L 01/19/22 00:35 Lactate 1.4 mmol/L (0.5-2.2) 01/19/22 00:35 Calcium 8.2 mg/dL (8.5-10.5) L 01/19/22 00:35 Magnesium 1.6 mg/dL (1.7-2.3) L 01/19/22 00:35 Total Bilirubin 0.5 mg/dL (0.15-1.2) 01/19/22 00:35 AST 6 U/L (0-32) 01/19/22 00:35 ALT < 5 U/L (0-33) 01/19/22 00:35 Alkaline Phosphatase 59 U/L (35-105) 01/19/22 00:35 C-Reactive Protein 202.6 mg/L (0.0-4.9) H 01/19/22 00:35 Total Protein 5.3 g/dL (6.6-8.7) L 01/19/22 00:35 Albumin 2.4 g/dL (3.5-5.2) L 01/19/22 00:35 Globulin 2.9 g/dL (1.3-4.6) 01/19/22 00:35 Urine Color Yellow (Yellow) 01/19/22 05:19 Urine Appearance Clear (CLEAR) 01/19/22 05:19 Urine pH 6.5 (5-7) 01/19/22 05:19 Ur Specific [place] 1.005 (1.005-1.030) 01/19/22 05:19 Urine Protein 1+ (Negative) H 01/19/22 05:19 Urine Glucose (UA) Norm (Normal) 01/19/22 05:19 Urine Ketones 2+ (Negative) H 01/19/22 05:19 Urine Blood 2+ (Negative) H 01/19/22 05:19 Urine Nitrate Negative (Negative) 01/19/22 05:19 Urine Bilirubin 1+ (Negative) H 01/19/22 05:19 Urine Urobilinogen 1 mg/dL (Negative) H 01/19/22 05:19 Ur Leukocyte Esterase Trace (Negative) H 01/19/22 05:19 Urine RBC 0-4 /hpf (0-2) H 01/19/22 05:19 Urine WBC 10-15 /hpf (0-5) H 01/19/22 05:19 Ur Squamous Epith Cells 10-15 /hpf (0-5) H 01/19/22 05:19 Amorphous Sediment Not Reportable 01/19/22 05:19 Urine Bacteria 1+ /hpf (NONE) H 01/19/22 05:19 Critical Care Time Critical Care Time: Critical Care Time: Yes Total Critical Care Time: 40 Attestation: This case had a high probability of a clinically significant, sudden, or life threatening deterioration of this patient's condition which required my full and direct attention, intervention and personal management. Time is independent of any procedures performed. Discharge Plan Discharge Patient Disposition: Admitted As Inpatient Admit Provider: Pal Jones Clinical Impression: Hypotension, Dehydration, Enteritis Condition: Stable Discharge Diet: Advance as tolerated Discharge Activity: Increase activity as tolerated Coding Level of Care Code ED Configuration Management Manager for Jbg Fwd Exam Comprehensive
--- NOTE | 2022-01-19 04:29 | CTR_ITS ---
PROCEDURE INFORMATION: Exam: CTA Chest With Contrast Exam date and time: 01/19/2022 4:51 AM Age: 76 years old Clinical indication: Shortness of breath; Prior surgery; Additional info: Hypotension, cancer, SOB, hospitalist requests. TECHNIQUE: Imaging protocol: Computed tomographic angiography of the chest with contrast. 3D rendering (Not supervised by radiologist): MIP and/or 3D reconstructed images were created by the technologist. Radiation optimization: All CT scans at this facility use at least one of these dose optimization techniques: automated exposure control; mA and/or kV adjustment per patient size (includes targeted exams where dose is matched to clinical indication); or iterative reconstruction. Contrast material: OMNI 350; Contrast volume: 41 ml; Contrast route: INTRAVENOUS (IV); COMPARISON: CT angio chest PE protcl [id number] 12/28/2021 3:41 PM RADIATION DOSE METRICS: Total DLP (mGy-cm): 413.7 FINDINGS: Tubes, catheters and devices: MediPort catheter is placed via the right internal jugular vein with its tip at the level of the superior cavoatrial junction. Pulmonary arteries: Normal. No pulmonary emboli. Aorta: Unremarkable. No aortic aneurysm. No aortic dissection. Veins: An inferior vena caval filter is present with its apex at the level of the confluence of the renal veins. Lungs: Unremarkable. No consolidation. No masses. Pleural spaces: Unremarkable. No pneumothorax. No pleural effusion. Heart: Diffuse calcifications are seen in the coronary arteries. Lymph nodes: Unremarkable. No enlarged lymph nodes. Gallbladder and bile ducts: Status post cholecystectomy. Bones/joints: There is a diffuse loss of disc height seen within the thoracolumbar spine compatible with degenerative disc disease. Severe compression fractures of T11 and L1 are seen. Soft tissues: Unremarkable. CT/CT angio chest PE protcl [id number] IMPRESSION: 1. There is no evidence for pulmonary emboli. 2. There are no acute chest findings.
[2022-01-19] MEDS: hydrocortisone 100 mg/2 mL SDV IVP (05:07)
[2022-01-19 05:46] LABS: Bilirubin Urine 1+ (Negative); Blood Urine 2+ (Negative); Ketones Urine 2+ (Negative); Protein Urine 1+ (Negative); Specific Gravity, Urine 1.005 (1.005-1.030); Urine Appearance Clear (CLEAR); Urine Color Yellow (Yellow); Urobilinogen Urine 1 mg/dL (Negative); pH Urine 6.5 (5-7)
[2022-01-19 05:47] LABS: Add Urine Microscopic? YES; Glucose Urine UA Norm (Normal); Leukocyte Esterase Urine Trace (Negative); Nitrate Urine Negative (Negative)
[2022-01-19 05:48] LABS: Bacteria Urine 1+ /hpf; RBC Urine 0-4 /hpf (0-2)
[2022-01-19 05:49] LABS: Add Urine Culture? No
--- NOTE | 2022-01-19 06:02 | PC.NURSE ---
Attempted to call ICU for report, ICU advised they will call back
--- NOTE | 2022-01-19 06:02 | PM.HP ---
Providers/Chief Complaint Admitting Physician: Pal Jones Primary Care Provider: Nils Gambino DO Chief Complaint: dehydration, weakness, cancer patient History of Present Illness Pleasant 76-year-old lady with remote history of DLBCL, endometrial cancer with abdominal LN and omental involvement currently treated with chemotherapy with Dr. Brandon harp in [place] has been having very poor oral intake over the last several months both due to very poor appetite, as well as nausea and intermittently vomiting which she eats, initially on presentation with some generalized abdominal discomfort, came in due to generalized weakness, blood pressure noted low in ER, and persistently low despite fluid resuscitation with 2 L of boluses so far. She does report having protracted diarrhea ever since she started chemotherapy. Here she otherwise is afebrile, without leukocytosis, but with bandemia, bands 1.2, 27%, ANC 4000. Absolute lymphocytes low at 0.2. Absolute monocytes low at 0. Myelocytes at 1%. Sodium 126, potassium 2.8, chloride 89, bicarb 19, anion gap 20.8. BUN 10, creatinine 0.7. Lactate 1.4. Calcium 8.2. Magnesium 1.6. Liver parameters WNL. CRP 202.6. Albumin 2.4. Urine with 2+ ketones, 10-[address] abdomen pelvis with diffuse bowel thickening and edema seen within the descending colon, bowel wall measuring up to 10.8 mm in thickness. Cystic mass again seen in the left hemipelvis unchanged. Cyst appears tethered to the uterus and sigmoid colon. Presacral edema. Also noted inferior vena cava filter with its apex at the confluence of the renal veins. Thrombus material again seen within the inferior vena cava and left common iliac vein but appearing slightly improved in today's examination. Thrombus material is seen within the common femoral veins bilaterally and within the external iliac vein on the right. Otherwise stable CT abdomen pelvis CT angiogram chest PE protocol without PE, no acute chest findings. In terms of cardiopulmonary resuscitation in case of cardiopulmonary arrest she would like it attempted, but without persistent attempts in case there was no successful resuscitation. Review of Systems General: Reports: Other (Denies any issues with her port) Const: Reports: change in appetite, fatigue and malaise; Denies: fever(s) or chills Eyes: Denies: change in vision, eye discomfort or eye redness ENMT: Denies: throat pain, oral sores or ear or mastoid pain Card: Denies: chest pain, edema, pre-syncope or dyspnea on exertion Resp: Denies: dyspnea, productive cough, change in phlegm color or hemoptysis GI: Reports: abdominal pain, nausea, vomiting and diarrhea; Denies: constipation, hematochezia or melena : Denies: flank pain, urinary frequency or hematuria Musc: Denies: back pain, joint swelling or joint redness Skin/Breast: Denies: rash or new lesions Neuro: Denies: headache(s), numbness in extremities, weakness in extremities, dizziness, confusion or seizure-like activity Endo: Denies: polyuria or polydipsia Wally/Lymph: Denies: easy bleeding or tender lymph nodes All/Imm: Denies: urticaria or tongue swelling Medications/Allergies Home Medications Medication Instructions Recorded Confirmed Last Taken Type loratadine 10 mg tablet (Claritin) 10 mg PO DAILY PRN Allergy Symptoms 02/14/21 01/09/22 08/08/21 History hydrocodone 5 mg-acetaminophen 325 1 tab PO Q4H PRN Pain 07/15/21 01/09/22 2 Weeks Ago History mg tablet ~10/22/21 ondansetron 4 mg disintegrating 4 mg PO Q6H PRN nausea and 07/15/21 01/09/22 08/06/21 Rx tablet vomiting #14 tabs duloxetine 30 mg capsule,delayed 30 mg PO BID 08/05/21 01/09/22 11/04/21 History release promethazine 25 mg tablet 25 mg PO Q6H PRN nausea and 12/01/21 01/09/22 Unknown Rx vomiting #20 tabs enoxaparin 100 mg/mL subcutaneous 90 mg (0.9 mL) SUBCUT Q12H #60 mL 01/05/22 01/09/22 01/08/22 Rx syringe magnesium L-lactate 84 mg 84 mg PO BID #60 tabs 01/05/22 01/09/22 Unknown Rx tablet,extended release (Magtab) methylphenidate HCl 10 mg tablet 5 mg PO DAILY@1200 #30 tabs 01/05/22 01/09/22 Unknown Rx methylphenidate HCl 10 mg tablet 5 mg PO QAM #30 tabs 01/05/22 01/09/22 Unknown Rx pantoprazole 40 mg tablet,delayed 40 mg PO BID #60 tabs 01/05/22 01/09/22 Unknown Rx release sucralfate 100 mg/mL oral 1 g (10 mL) PO AC&BEDTIME #300 mL 01/05/22 01/09/22 Unknown Rx suspension carboplatin 10 mg/mL intravenous See Rx Instructions .Route .COMPLEX 01/09/22 01/09/22 Unknown History solution dexamethasone sodium phos (PF) 10 See Rx Instructions .Route .COMPLEX 01/09/22 01/09/22 Unknown History mg/mL injection syringe diphenhydramine HCl 25 mg tablet 25 mg PO DAILY PRN Allergy Symptoms 01/09/22 01/09/22 Unknown History (Benadryl Allergy) magnesium oxide 400 mg (241.3 mg 800 mg PO BID #60 tabs 01/09/22 01/09/22 01/05/22 Rx magnesium) tablet paclitaxel 6 mg/mL See Rx Instructions .Route .COMPLEX 01/09/22 01/09/22 Unknown History concentrate,intravenous palonosetron 0.25 mg/5 mL 0.25 mg IV .WEEKLY TREATMENT 01/09/22 01/09/22 Unknown History intravenous solution (Aloxi) potassium chloride 20 mEq 40 meq PO TID #120 tabs 01/09/22 01/09/22 01/05/22 Rx tablet,extended release(part/cryst) prochlorperazine maleate 10 mg 10 mg PO Q4H PRN Nausea 01/09/22 01/09/22 Unknown History tablet (Compazine) metronidazole 500 mg tablet 500 mg PO Q8H 7 days #21 tabs 01/19/22 Unknown Rx Allergies Allergy/AdvReac Type Severity Reaction Status Date / Time naproxen Allergy ADR-Nausea Verified 12/23/21 08:57 PFSH Acute PFSH: Medical History Acquired immunocompromised state Bilateral hydronephrosis 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, intra-abdominal lymph nodes Endometrial carcinoma Myocardial injury On antineoplastic chemotherapy Ovarian cancer Followed in [place] Physical deconditioning Port-A-Cath in place Presence of IVC filter Right leg DVT (06/2021) GSV extending to CFV Status post insertion of nerve stimulator Vancomycin resistant Enterococcus infection Surgical History H/O cataract extraction bilateral eyes H/O tubal ligation History of colon resection History of left knee replacement History of removal of Port-a-Cath History of total right knee replacement History of ureter stent Bilateral, due to obstruction related to malignancy S/P cholecystectomy Status post hysteroscopy 06/11/2021- hysteroscopy with D&C via myosure performed by Dr. Victoria at [facility] Family History Mother , at age Hypertension Cancer pancreatic Father , at age 72 Colon cancer 72 Denies family history of Ovarian cancer Diabetes Clotting disorder Heart disease Hyperlipidemia Breast cancer Anesthesia complication Bleeding disorder Uterine cancer Thyroid condition Stroke Social History Smoking and tobacco status: former smoker (smoked x 15 years) Second hand smoke exposure: No Alcohol intake: never Adopted: No Caregiver/support person: Yes Lives independently: Yes Household members: significant other Housing: House Marital status: / service: No Current occupational status: retired Current occupational exposures/hazards: No Pets and animals: Yes History of recent travel: No Leisure activites: exercise Sexually active: No Current gender identity: Female Chlei/Mandaen: Confucianism Vitals/I&O/Wt Last Vital Signs Temp 97.7 F 01/18/22 23:27 Pulse 79 01/19/22 06:00 Resp 16 01/19/22 06:00 BP 81/54 01/19/22 06:00 Pulse Ox 98 01/19/22 06:00 O2 Del Method 01/18/22 23:21 01/18/22 01/18/22 01/19/22 14:59 22:59 06:59 Intake Total 2099 / 2099 Balance 2099 / 2099 Weight last 48 hrs Weight 87.997 kg Physical Exam Const: COMMON NORMALS: patient oriented x3 and alert GENERAL APPEARANCE: cooperative NUTRITIONAL APPEARANCE: overweight ORIENTATION/CONSCIOUSNESS: Yes awake HENMT: COMMON NORMALS: oropharynx normal Neck/C-Spine: COMMON NORMALS: no JVD Chest: OTHER: Unremarkable appearance of port in R chest. Resp: COMMON NORMALS: normal respiratory effort and clear to auscultation bilaterally AUSCULTATION: clear to auscultation bilaterally Cardio: COMMON NORMALS: no JVD, regular rhythm, S1 normal heart sound present, S2 normal heart sound present and No murmurs present (Cardio) RHYTHM: regular rhythm HEART SOUNDS: S1 normal heart sound present and S2 normal heart sound present GI: COMMON NORMALS: Normal to inspection, nondistended, normoactive bowel sounds present, Soft to palpation and non-tender PALPATION: Yes Soft to palpation Extremity: COMMON NORMALS: no joint enlargement and no pedal edema Neuro: COMMON NORMALS: patient oriented x3 and moves all extremities SENSORIUM/ORIENTATION: Yes alert Skin: COMMON NORMALS: no rashes or lesions noted GENERAL SKIN EXAM: no rashes or lesions noted Data : 01/19/22 00:35 01/19/22 00:35 A&P Assessment and plan (1) Shock: Not entirely clear etiology of shock but suspected hypovolemic shock with very poor oral intake, nausea and vomiting, chronic diarrhea, currently appears also possible DKA. Possible colitis noted on imaging. Additionally possible adrenal insufficiency. Received fluid boluses. Additional bolus starting, continue IV fluid infusion, will also start Levophed to maintain mean arterial pressure. Will give empiric coverage with Zosyn for now. Follow-up blood and urine culture. Follow-up stool studies. (2) Enteritis: Possible enterocolitis. Check C. difficile, stool culture, ova and parasite. She is currently undergoing chemotherapy. She is not sure what kind of chemo. (3) Dehydration: Received fluid challenge, additional bolus, continue IV infusion. Has had poor oral intake, poor appetite, nausea and vomiting, and diarrhea. Additional assessment of enterocolitis as above. PPI. Antiemetics as needed. (4) Left-shifted white blood cells: Noted bandemia, as well as myelocytes may be possibly secondary to sepsis. Additional treatment as above. Does have history of DLBCL, currently treated for uterine cancer with chemotherapy. Assess additionally peripheral smear. Reassess blood count with rehydration, empiric antibiotic. Consider contacting heme-onc to discuss blood count changes given her history. (5) DKA (diabetic ketoacidosis): Possible DKA with anion gap metabolic acidosis, 2+ ketones in urine. Does not appear to have known diabetes, but possibility of steroid-induced DM. Check VBG. Check A1c. D5 infusion. Target glucose 150-200. Insulin drip. Received potassium replacement, give magnesium replacement, recheck BMP. Check Phos. Give additional replacement as needed. Check lipase. (6) High anion gap metabolic acidosis: Possible ketoacidosis with 2+ urine ketones, anion gap metabolic acidosis. Has also had chronic diarrhea. Additional rehydration as above, initial management of suspected ketoacidosis as above. Reassess chemistry. (7) Hypokalemia: Received replacement, replacement using. Recheck BMP. (8) Hyponatremia: Suspected hypovolemic hyponatremia with poor oral intake, nausea and vomiting, diarrhea. Received fluid challenge. Recheck BMP. (9) Hypomagnesemia: Replace. Follow-up level. 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 Continue therapeutic Lovenox. Monitor platelets. (11) DVT, bilateral lower limbs: Continue therapeutic Lovenox. (12) UTI (urinary tract infection): Empirically Zosyn for now. Urine culture. (13) Thrombocytopenia: Monitor platelets with anticoagulation. Plan Acquired immunocompromise state Remote history of DLBCL History of hydronephrosis and ureteral stenting Endometrial cancer, Ovarian cancer Status post neurostimulator Other comorbid conditions as per PMH Requested from home occasions, please reconcile once available. Attestations Medical Necessity Statement*: Admission of over 2 midnights anticipated for assessment of management of hypovolemic shock, possible septic shock, and a lady with Malignancy, on chemotherapy, suspected DKA, multiple electrolyte abnormalities, additional multiple comorbid conditions as above. 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
--- NOTE | 2022-01-19 06:30 | PC.NURSE ---
Transfer Note Patient transferred to ICU from ER via stretcher. Handoff received from Rebeca MURILLO. Patient oriented to environment and equipment. Covering service notified. Orders reviewed and will continue to monitor. Family and/or construction sales representative notified. Patient alert/oriented x4 on room air upon transfer to ICU. No wounds or skin issues noted at this time. Patient denies reports of pain at this time.
[2022-01-19 06:53] LABS: Anion Gap 21.4 (5-19); Blood Urea Nitrogen 9 mg/dL (8-23); Carbon Dioxide 17 mmol/L (22-29); Chloride 98 mmol/L (98-107); Glucose 84 mg/dL (65-115); Osmolality Calculated 274 mOsm/kg (285-295); Potassium 3.4 mmol/L (3.5-5.1); Sodium 133 mmol/L (136-145)
[2022-01-19] MEDS: piperacillin-tazobactam 3.375 GM in sodium chloride 0.9% (plus) 50 ML IV (06:53)
[2022-01-19] MEDS: magnesium sulfate premix 2 GM/50 ML PIGGYBACK IV (06:53)
[2022-01-19] MEDS: dextrose 5%-sod chloride 0.9% 1,000 ML 150 ML IV (06:54)
[2022-01-19 06:57] LABS: Base Excess VBG -7.3 mmol/L (-3.0-3.0); Blood Gas Operator Identificat AMH; Blood Gas Sample Site Not specified; Blood Gas Sample Type Venous; HCO3 VBG 17.3 mmol/L (24-28); PCO2 VBG 30.4 mmHg (41-51); PO2 VBG 79.9 mmHg (25-40); Venous Blood Gas Hematocrit 25.4 % (37-47); pH VBG 7.36 (7.32-7.42)
[2022-01-19 07:00] LABS: Lipase 4 U/L (13-60)
[2022-01-19 07:01] LABS: Basophils % 0.3 %; Hematocrit 23.1 % (37.0-47.0); Hemoglobin 7.3 g/dL (11.5-15.3); Lymphocytes % 29.5 %; Mean Corpuscular HGB Conc 31.6 g/dL (30.0-36.0); Mean Corpuscular Hemoglobin 28.5 pg (28.0-34.0); Mean Corpuscular Volume 90.2 fl (81-99); Mean Platelet Volume 9.7 fL (7.4-10.4); Monocytes # 0.4 10^3/uL (0.2-0.9); Monocytes % 12.4 %; Neutrophils # 1.74 10^3/uL (1.8-7.7); Neutrophils % 54.1 %; Nucleated Red Blood Cells % 0 %; Platelet Count 103 10^3/cmm (130-400); Red Blood Count 2.56 10^6/uL (4.1-5.3); Red Cell Distribution Width 19.5 % (12.1-15.1); White Blood Count 3.2 10^3/uL (4.0-10.0)
[2022-01-19 07:20] LABS: LAB Peripheral Smear Sent for Review
[2022-01-19 08:12] LABS: Estmated Average Glucose 91; Hemoglobin A1C 4.8 % (4.0-6.0)
[2022-01-19] MEDS: pantoprazole 40 mg SDV IVP (08:22)
[2022-01-19] MEDS: enoxaparin 100 mg/mL Syringe 90 MG SUBCUT (08:22)
[2022-01-19 09:41] LABS: Hematocrit 23.6 % (37.0-47.0); Hemoglobin 7.2 g/dL (11.5-15.3)
--- NOTE | 2022-01-19 09:56 | PM.MISC ---
Miscellaneous Note Note: Patient has not required vasopressors Hemoglobin seven-point 2 repeat H&H today Patient is awake and alert No active signs of bleeding We will give her 1 unit PRBC She is awake and alert Currently on room air Nonfocal neuro exam Clinically looks dehydrated Abdomen is soft Pleasant and cooperative Assessment and plan Hypovolemic shock Continue IV fluids I will give her 1 unit PRBC for drop in her hemoglobin Patient was on anticoagulating agent at home Considering recurrent anemic episodes she might not be an ideal candidate for anticoagulating agent, will discuss further with the patient She lives with her significant other and son at home Start her on clear liquid diet Continue IV fluids and antibiotics Her ketosis is related to dehydration and starvation, I have asked nurse not to give her insulin drip Hemoglobin A1c is 4.8 Lactic acid is normal Full code Advance diet to clear liquid today CTA did not show PE She does have an IVC filter Enteritis present Uterine cancer follows up with Dr. Gold and Dr. Brandon harp
[2022-01-19 10:17] LABS: Anion Gap 20.4 (5-19); Blood Urea Nitrogen 9 mg/dL (8-23); Calcium 7.4 mg/dL (8.5-10.5); Carbon Dioxide 17 mmol/L (22-29); Chloride 99 mmol/L (98-107); Glucose 139 mg/dL (65-115); Osmolality Calculated 277 mOsm/kg (285-295); Potassium 3.4 mmol/L (3.5-5.1); Sodium 133 mmol/L (136-145)
--- NOTE | 2022-01-19 10:21 | PC.NURSE ---
called culture results to Mitzi Arora RN
[2022-01-19] MEDS: sodium chloride 0.9% 1,000 ML 75 ML IV (10:31)
--- NOTE | 2022-01-19 11:52 | PC.CHAP ---
Pastoral Care Encounter/Spiritual Assessment Type of Contact [] Declined translator visit [] Patient/Family/Request visit [] Outpatient visit [] Follow-up visit [] Physician referral [] Code/Alert [x] Routine visit [] Staff referral [] Actively dying [x] Patient sleeping [] Family support [] [] Out of room [] Palliative care [] [] Receiving care in room [] Pre-surgical visit [] Trauma [] Long length of stay [x] ICU visit [] Other: Relational/Emotional Strength [] Patient feels connected with others/family/visitors/staff [] Distress [] Loneliness/isolation [] Abandonment Spirituality of Patient [] Person of Cheli [] Attends Mu-Ism of their Cheli [] Believes in Prayer [] Reads Bible or Sikhism materials [] There are Spiritual issues to be addressed Senior Strategy Analyst Interventions [x] Prayer [] Active listening [] Non-anxious presence [] Spiritual/emotional support [] Crisis/trauma care [] Spiritual counseling [] Bereavement support [] Provided bereavement packet [] Provided Bible/devotional materials [] Provided toy/stuffed animal, coloring book to patient or family member [] Provided Communion [] Anointing/Ovid [] Salvation [x] Completed spiritual assessment [] Other: Impact on Illness or Injury [] Angry [] Fearful [] Anxious [] Often cries [] Exhaustion [] Unable to work [] Unable to attend voodoo [] Unable to walk/stand [] Unable to read [] Unable to drive [] Unable to eat/drink [] Unable to sleep [] Unable to be with family [] Patient intubated [] Other: Summary Time spent with patient
[2022-01-19] MEDS: sodium chloride 0.9% (100 ml) 100 ML 50 ML (14:16)
--- NOTE | 2022-01-19 19:40 | PC.NURSE ---
PT HAS HAD AN UNEVENTFUL SHIFT. PT HAS BEEN A/O X4. PT RECEIVED SOME LEVOPHED THIS MORNING AND SINCE THEN B/P HAS REMAINED WNL. ALL OTHER VITALS HAVE BEEN WNL. PT HAS RECEIVED 1 OF 2 UNITS OF PRBCs. SHE TOLERATED THE FIRST UNIT WELL. LANDS RESOURCE MANAGER NURSE WILL START AND ADMINISTER THE SECOND UNIT. PT HAD SOME EPISODES OF INCONTINENCY TODAY BUT THIS EVENING WAS ASSISTED TO THE BEDSIDE COMMODE WHERE SHE HAD A DECENT VOID. PT DOES HAVE SOME GENERALIZED WEAKNESS BUT OVERALL DOES OK WITH STANDBY ASSIST. PT HAS NOT HAD ANY COMPLAINTS OF PAIN. PT HAS BEEN ENCOURAGED TO REALLY TRY AND DRINK AND EAT SHE CAN. CARE WILL BE TURNED OVER TO LANDS RESOURCE MANAGER NURSE CHIDI MARTINEZ.
[2022-01-20] VITALS (188 sets, daily range): BP systolic 92–142; BP diastolic 55–84; PULSE 63–87; RESP 7–26; O2SAT 70–100
[2022-01-20 04:03] LABS: Basophils % 0.5 %; Lymphocytes # 1.9 10^3/uL (0.8-4.8); Lymphocytes % 43.6 %; Mean Corpuscular HGB Conc 32.6 g/dL (30.0-36.0); Mean Corpuscular Hemoglobin 29.1 pg (28.0-34.0); Mean Corpuscular Volume 89.1 fl (81-99); Mean Platelet Volume 9.7 fL (7.4-10.4); Monocytes # 0.4 10^3/uL (0.2-0.9); Monocytes % 10.1 %; Neutrophils # 1.83 10^3/uL (1.8-7.7); Neutrophils % 41.9 %; Nucleated Red Blood Cells % 0 %; Platelet Count 136 10^3/cmm (130-400); Red Blood Count 3.68 10^6/uL (4.1-5.3); Red Cell Distribution Width 18.4 % (12.1-15.1); White Blood Count 4.4 10^3/uL (4.0-10.0)
[2022-01-20] MEDS: acetaminophen 325 mg Tablet 650 MG PO (04:07)
[2022-01-20 04:10] LABS: Hematocrit 32.8 % (37.0-47.0); Hemoglobin 10.7 g/dL (11.5-15.3)
[2022-01-20 04:46] LABS: Alanine Aminotransferase < 5 U/L (0-33); Albumin Level 2.3 g/dL (3.5-5.2); Alkaline Phosphatase 52 U/L (35-105); Anion Gap 15.1 (5-19); Aspartate Amino Transferase 6 U/L (0-32); Blood Urea Nitrogen 11 mg/dL (8-23); Carbon Dioxide 21 mmol/L (22-29); Chloride 100 mmol/L (98-107); Globulin 2.7 g/dL (1.3-4.6); Glucose 108 mg/dL (65-115); Magnesium 1.9 mg/dL (1.7-2.3); Osmolality Calculated 276 mOsm/kg (285-295); Potassium 3.1 mmol/L (3.5-5.1); Sodium 133 mmol/L (136-145); Total Bilirubin 0.6 mg/dL (0.15-1.2)
--- NOTE | 2022-01-20 05:57 | PC.NURSE ---
Shift Note Frequent safety and comfort rounds continue. Orders and/or nursing care completed as indicated. Patient monitored for response to intervention and treatment(s). Education provided includes treatment plan. Patient verbalized understanding of teaching. Patient had an uneventful shift remains alert/oriented x4 on room air. No wounds or skin issues noted at this time. IVF infusing per order please see MAR for infusion rate. Patient reported pain in the legs overnight, PRN medication administered please see MAR for details. Patient had several bowel movements throughout shift. Will continue to monitor.
--- NOTE | 2022-01-20 08:28 | PC.PHAR ---
[facility] [phone] VERIFIED PTS MEDICATIONS-STATES THE PT GETS SICK AND DOESNT WANT TO TAKE MEDICATIONS LIKE SHE IS SUPPOSE TO
[2022-01-20] MEDS: pantoprazole 40 mg SDV IVP (08:40)
--- NOTE | 2022-01-20 10:38 | P.DS_ITS ---
Discharge Providers Date of Admission: 01/19/22 05:49 Date of Discharge: January 20, 2022 Attending Provider at Admission: Pal Jones Attending Provider at Discharge: Heath Schmitz MD Primary Care Provider: Nlis Gambino DO Diagnoses at Discharge Discharge Diagnosis (1) Shock: Status: Acute (2) Enteritis: Status: Acute (3) Dehydration: Status: Acute (4) Left-shifted white blood cells: Status: Acute (5) DKA (diabetic ketoacidosis): Status: Acute (6) High anion gap metabolic acidosis: Status: Acute (7) Hypokalemia: Status: Acute (8) Hyponatremia: Status: Acute (9) Hypomagnesemia: Status: Acute (10) IVC thrombosis: Status: Acute (11) DVT, bilateral lower limbs: Status: Acute (12) UTI (urinary tract infection): Status: Acute (13) Thrombocytopenia: Status: Acute Reason for Visit Reason for Visit: dehydration, weakness, cancer patient Hospital Course Hospital Course Pleasant 76-year-old lady with remote history of DLBCL, endometrial cancer with abdominal LN and omental involvement currently treated with chemotherapy with Dr. Brandon harp in [place] has been having very poor oral intake over the last several months both due to very poor appetite, as well as nausea and intermittently vomiting which she eats presented to the hospital for generalized weakness and fatigue she was diagnosed with hypovolemic shock with concern for autonomic dysfunction. She was anemic however no active GI bleed. She was given 2 unit PRBC which improved her blood pressure and hemoglobin. She was not ketosis because of dehydration and starvation. She has history of bilateral lower extremity DVT, I would like to hold her injectable Lovenox for now she already has IVC filter. During her hospitalization she was diagnosed with C. difficile. Started p.o. vancomycin. Patient is asking to be discharged home I will give her p.o. vancomycin 14-day regimen outpatient follow-up with her PCP . No signs of PE on CTA chest. Patient has been having on and off diarrhea throughout this year since initiation of chemotherapy, I do believe her diarrhea is chemotherapy-induced at this time she was diagnosed with an acute episode of C. difficile colitis. I do not think she has been suffering from C. difficile colitis throughout this year. IMPRESSION: 1. An inferior vena caval filter is present with its apex at the confluence of the renal veins. Thrombus material is again seen within the inferior vena cava and left common iliac vein but appearing slightly improved in today's examination. Thrombus material is seen within the common femoral veins bilaterally and within the external iliac vein on the right. 2. There is diffuse bowel wall thickening and edema seen within the descending colon, the bowel wall measuring up to 10.8 mm in thickness. 3. A cystic mass is again seen within the left hemipelvis unchanged in size and configuration compared with 12/28/2021. The cyst appears to be tethered to the uterus and sigmoid colon. 4. Presacral edema 5. Otherwise stable CT appearance of the abdomen pelvis compared with 12/28/2021. Physical Exam Narrative: Awake and alert, pleasant and cooperative Abdomen soft Nonpitting edema of legs Currently doing well on room air Looks well-hydrated Nonfocal neuro exam Pleasant and cooperative Discharge Data Studies Completed and Pending Completed Studies During Hospitalization Category Date Time Status CT abdomen pelvis w con* [id number] Stat Cat Scan 01/19/22 01:29 Completed CTA chest [CT angio chest PE protcl [id number]] Stat Cat Scan 01/19/22 04:29 Completed XR KUB portable [id number] Stat Exams 01/19/22 00:48 Completed XR chest 1V portable [id number] Stat Exams 01/18/22 23:56 Completed Pending at discharge Category Date Time Status Complete Blood Count w/Auto AM LABS Lab 01/21/22 04:00 Ordered Complete Blood Count w/Auto AM LABS Lab 01/22/22 04:00 Ordered Comprehensive Metabolic Panel AM LABS Lab 01/21/22 04:00 Ordered Comprehensive Metabolic Panel AM LABS Lab 01/22/22 04:00 Ordered Magnesium AM LABS Lab 01/21/22 04:00 Ordered Magnesium AM LABS Lab 01/22/22 04:00 Ordered OVA and Parasites, Conc and PE Routine Lab 01/19/22 06:42 Uncollected Stool Culture, Bacterial [Enteric Bacterial Panel by Lab 01/19/22 06:42 Uncollected PCR] Routine Urine Culture Routine Lab 01/19/22 05:19 Received Radiology Impressions Chest X-Ray 01/18/22 23:56 IMPRESSION: 1. MediPort catheter placed with tip at the level of the superior cavoatrial junction. 2. Stable appearance of the chest compared with 12/28/2021. KUB X-Ray 01/19/22 00:48 IMPRESSION: A nonobstructive bowel gas pattern is seen. Abdomen/Pelvis CT 01/19/22 01:29 IMPRESSION: 1. An inferior vena caval filter is present with its apex at the confluence of the renal veins. Thrombus material is again seen within the inferior vena cava and left common iliac vein but appearing slightly improved in today's examination. Thrombus material is seen within the common femoral veins bilaterally and within the external iliac vein on the right. 2. There is diffuse bowel wall thickening and edema seen within the descending colon, the bowel wall measuring up to 10.8 mm in thickness. 3. A cystic mass is again seen within the left hemipelvis unchanged in size and configuration compared with 12/28/2021. The cyst appears to be tethered to the uterus and sigmoid colon. 4. Presacral edema 5. Otherwise stable CT appearance of the abdomen pelvis compared with 12/28/2021. COMMENTS: For patients with an IVC filter, recommend assessment for a management plan for the patient's IVC filter. If there is no established management plan, recommend referral to an interventional clinician on a nonemergent basis for evaluation. Chest CTA 01/19/22 04:29 IMPRESSION: 1. There is no evidence for pulmonary emboli. 2. There are no acute chest findings. Laboratory Results WBC 4.4 10^3/uL (4.0-10.0) 01/20/22 02:45 RBC 3.68 10^6/uL (4.1-5.3) L 01/20/22 02:45 Hgb 10.7 g/dL (11.5-15.3) L D 01/20/22 02:45 Hct 32.8 % (37.0-47.0) L D 01/20/22 02:45 MCV 89.1 fl (81-99) 01/20/22 02:45 MCH 29.1 pg (28.0-34.0) 01/20/22 02:45 MCHC 32.6 g/dL (30.0-36.0) 01/20/22 02:45 RDW 18.4 % (12.1-15.1) H 01/20/22 02:45 Plt Count 136 10^3/cmm (130-400) D 01/20/22 02:45 MPV 9.7 fL (7.4-10.4) 01/20/22 02:45 Neut % (Auto) 41.9 % 01/20/22 02:45 Lymph % (Auto) 43.6 % 01/20/22 02:45 [place] % (Auto) 10.1 % 01/20/22 02:45 Eos % (Auto) 0.0 % 01/20/22 02:45 Baso % (Auto) 0.5 % 01/20/22 02:45 Neut # (Auto) 1.83 10^3/uL (1.8-7.7) 01/20/22 02:45 Lymph # (Auto) 1.9 10^3/uL (0.8-4.8) 01/20/22 02:45 [place] # (Auto) 0.4 10^3/uL (0.2-0.9) 01/20/22 02:45 Eos # (Auto) 0.0 10^3/uL (0.0-0.8) 01/20/22 02:45 Baso # (Auto) 0.0 10^3/uL (0.0-0.1) 01/20/22 02:45 Nucleated RBC % (auto) 0 % 01/20/22 02:45 Total Counted 100 (0-100) 01/19/22 00:35 Atypical Lymphs % 0.0 % (0-5) 01/19/22 00:35 Absolute Neutrophils 4.0 10^3/cmm (1.4-6.5) 01/19/22 00:35 Segmented Neutrophils 67 % 01/19/22 00:35 Abs Segm Neuts (Man) 2.9 10/cmm (1.6-7.1) 01/19/22 00:35 Band Neutrophils 27.0 % 01/19/22 00:35 Abs Band Neuts (Man) 1.2 10^3/cmm (0.0-1.2) 01/19/22 00:35 Absolute Lymphocytes 0.2 10^3/cmm (1.2-3.4) L 01/19/22 00:35 Lymphocytes (Manual) 4 % 01/19/22 00:35 Monocytes (Manual) 1.0 % 01/19/22 00:35 Absolute Monocytes 0.0 10^3/cmm (0.1-0.6) L 01/19/22 00:35 Eosinophils (Manual) 0 % 01/19/22 00:35 Absolute Eosinophils 0.0 10^3/cmm (0.0-0.7) 01/19/22 00:35 Basophils (Manual) 0.0 % 01/19/22 00:35 Absolute Basophils 0.0 10^3/cmm (0.0-0.2) 01/19/22 00:35 Myelocytes 1.0 % 01/19/22 00:35 Nucleated RBCs # 0.0 /100WBC 01/20/22 02:45 Toxic Granulation 1+ H 01/19/22 00:35 Toxic Vacuolation 1+ H 01/19/22 00:35 Platelet Estimate Decreased (Normal) L 01/19/22 00:35 [place] 1+ H 01/19/22 00:35 Specimen Type Venous 01/19/22 06:43 Sample Site Not specified 01/19/22 06:43 [place] Test N/a 01/19/22 06:43 VBG pH 7.36 (7.32-7.42) 01/19/22 06:43 VBG pCO2 30.4 mmHg (41-51) L 01/19/22 06:43 VBG pO2 79.9 mmHg (25-40) H 01/19/22 06:43 VBG HCO3 17.3 mmol/L (24-28) L 01/19/22 06:43 VBG Base Excess -7.3 mmol/L (-3.0-3.0) L 01/19/22 06:43 VBG Hematocrit 25.4 % (37-47) L 01/19/22 06:43 O2 Delivery Device Not Reportable 01/19/22 06:43 Director [employer] ID Amh 01/19/22 06:43 Sodium 133 mmol/L (136-145) L 01/20/22 02:45 Potassium 3.1 mmol/L (3.5-5.1) L 01/20/22 02:45 Chloride 100 mmol/L (98-107) 01/20/22 02:45 Carbon Dioxide 21 mmol/L (22-29) L 01/20/22 02:45 Anion Gap 15.1 (5-19) 01/20/22 02:45 BUN 11 mg/dL (8-23) 01/20/22 02:45 Creatinine 0.7 mg/dL (0.5-0.9) 01/20/22 02:45 GFR Calculation Not Reportable 01/20/22 02:45 Glucose 108 mg/dL (65-115) 01/20/22 02:45 Estimat Average Glucose 91 01/19/22 00:35 Hemoglobin A1c 4.8 % (4.0-6.0) 01/19/22 00:35 Calculated Osmolality 276 mOsm/kg (285-295) L 01/20/22 02:45 Lactate 1.4 mmol/L (0.5-2.2) 01/19/22 00:35 Calcium 8.0 mg/dL (8.5-10.5) L 01/20/22 02:45 Phosphorus 3.0 mg/dL (2.5-4.5) 01/19/22 06:05 Magnesium 1.9 mg/dL (1.7-2.3) 01/20/22 02:45 Total Bilirubin 0.6 mg/dL (0.15-1.2) 01/20/22 02:45 AST 6 U/L (0-32) 01/20/22 02:45 ALT < 5 U/L (0-33) 01/20/22 02:45 Alkaline Phosphatase 52 U/L (35-105) 01/20/22 02:45 C-Reactive Protein 202.6 mg/L (0.0-4.9) H 01/19/22 00:35 Total Protein 5.0 g/dL (6.6-8.7) L 01/20/22 02:45 Albumin 2.3 g/dL (3.5-5.2) L 01/20/22 02:45 Globulin 2.7 g/dL (1.3-4.6) 01/20/22 02:45 Lipase 4 U/L (13-60) L 01/19/22 06:05 Random Cortisol 134.30 ug/dL (2.47-19.5) H 01/19/22 06:05 Urine Color Yellow (Yellow) 01/19/22 05:19 Urine Appearance Clear (CLEAR) 01/19/22 05:19 Urine pH 6.5 (5-7) 01/19/22 05:19 Ur Specific [place] 1.005 (1.005-1.030) 01/19/22 05:19 Urine Protein 1+ (Negative) H 01/19/22 05:19 Urine Glucose (UA) Norm (Normal) 01/19/22 05:19 Urine Ketones 2+ (Negative) H 01/19/22 05:19 Urine Blood 2+ (Negative) H 01/19/22 05:19 Urine Nitrate Negative (Negative) 01/19/22 05:19 Urine Bilirubin 1+ (Negative) H 01/19/22 05:19 Urine Urobilinogen 1 mg/dL (Negative) H 01/19/22 05:19 Ur Leukocyte Esterase Trace (Negative) H 01/19/22 05:19 Urine RBC 0-4 /hpf (0-2) H 01/19/22 05:19 Urine WBC 10-15 /hpf (0-5) H 01/19/22 05:19 Ur Squamous Epith Cells 10-15 /hpf (0-5) H 01/19/22 05:19 Amorphous Sediment Not Reportable 01/19/22 05:19 Urine Bacteria 1+ /hpf (NONE) H 01/19/22 05:19 Blood Type O Negative 01/19/22 10:50 Rho(D) Type Negative 01/19/22 10:50 Antibody Screen Negative 01/19/22 10:50 Crossmatch See Detail 01/19/22 10:50 Vitals Last Vital Signs Temp 97.4 F L 01/19/22 19:56 Pulse 67 01/20/22 10:08 Resp 21 H 01/20/22 10:08 BP 126/82 01/20/22 10:08 Pulse Ox 86 L 01/20/22 10:08 O2 Del Method 01/19/22 19:35 Discharge Plan Discharge Patient Disposition: Home Health Service Condition: Stable Prescriptions: New vancomycin 125 mg capsule 125 mg PO QID 14 Days Qty: 56 0RF Continued loratadine [Claritin] 10 mg Tablet 10 mg PO DAILY PRN (Reason: Allergy Symptoms) hydrocodone-acetaminophen 5-325 mg Tablet 1 tab PO Q4H PRN (Reason: Pain) ondansetron 4 mg tablet,disintegrating 4 mg PO Q6H PRN (Reason: nausea and vomiting) Qty: 14 0RF methylphenidate HCl 10 mg Tablet 5 mg PO QAM Qty: 30 0RF Rx Instructions: didnt fill rx written on 01/05/22 methylphenidate HCl 10 mg Tablet 5 mg PO DAILY@1200 Qty: 30 0RF Rx Instructions: didnt fill rx written on 01/05/22 sucralfate 100 mg/mL Suspension 1 g PO AC&BEDTIME Qty: 300 0RF pantoprazole 40 mg Tablet,Delayed Release (Dr/Ec) 40 mg PO BID Qty: 60 0RF magnesium L-lactate [Magtab] 84 mg Tablet Extended Release 84 mg PO BID Qty: 60 0RF duloxetine 30 mg Capsule,Delayed Release(Dr/Ec) 30 mg PO BID promethazine 25 mg tablet 25 mg PO Q6H PRN (Reason: nausea and vomiting) Qty: 20 0RF paclitaxel 6 mg/mL Concentrate See Rx Instructions .ROUTE .COMPLEX Rx Instructions: 116mg weekly for 3 weeks then off for one week palonosetron [Aloxi] 0.25 mg/5 mL Solution 0.25 mg IV .WEEKLY TREATMENT carboplatin 10 mg/mL Solution See Rx Instructions .ROUTE .COMPLEX Rx Instructions: 190mg weekly for 3 weeks then off for one week dexamethasone sodium phos (PF) 10 mg/mL Syringe See Rx Instructions .ROUTE .COMPLEX Rx Instructions: 20mg iv on treatment day prochlorperazine maleate [Compazine] 10 mg Tablet 10 mg PO Q4H PRN (Reason: Nausea) diphenhydramine HCl [Benadryl Allergy] 25 mg Tablet 25 mg PO DAILY PRN (Reason: Allergy Symptoms) potassium chloride 20 mEq tablet,ER particles/crystals 40 meq PO TID Qty: 120 0RF Discontinued enoxaparin 100 mg/mL Syringe 90 mg SUBCUT Q12H Qty: 60 0RF Discharge Orders: Discharge Order (Routine); Ordered 01/20/22 Ordered By: Heath Schmitz Referrals: [facility] [Outside] Nils Gambino DO [Primary Care Provider] - 01/27/22 11:40 am Discharge Diet: Advance as tolerated Discharge Activity: Increase activity as tolerated Patient Instructions: Dehydration (ED), Enteritis (ED), Opioid Safety, Pain Management Discharge Attestations Time Spent in Discharge Care*: less than 30 min Status at Discharge: Cognitive status at discharge: cognitively intact , Behavioral status at discharge: cooperative , Quality Metrics Clinical Quality Measures [ No reported AMI, CVA or VTE this stay] Coding Level of Care Code Acute Chg FW DC note Diagnoses Shock R57.9 Enteritis K52.9 Dehydration E86.0 Left-shifted white blood cells D72.89 DKA (diabetic ketoacidosis) E11.10 High anion gap metabolic acidosis E87.29 Hypokalemia E87.6 Hyponatremia E87.1 Hypomagnesemia E83.42 IVC thrombosis I82.220 DVT, bilateral lower limbs I82.403 UTI (urinary tract infection) N39.0 Thrombocytopenia D69.6
--- NOTE | 2022-01-20 16:24 | PC.NURSE ---
Patient severely weak. Unable to stand or transfer without extensive 1-2 assist from nursing staff. Just trying to dress patient, patient had to lay down from sitting position to laying position 3 different times to rest. Patient very reliant on staff and family at home for cares. Patients sitting time very limited in seated position without needing to lay back down due to weakness and fatigue.
--- NOTE | 2022-01-20 16:42 | PC.NURSE ---
Patient left via EMS stretcher due to severe weakness and unable to transfer, ambulate, or tolerate seated position. Left unit at 1640.
== END 2022-01-20 16:40 | disposition home health service (06) | DRG 371 ==
LOC: ER 01-19 04:20 → ICU 01-19 05:50
PROVIDERS: Admitting Provider Internal Medicine; Emergency Provider Emergency Medicine; PCP Family Medicine; Visit Provider Internal Medicine
DX: A04.72 Enterocolitis due to Clostridium difficile, not specified as recurrent (principal); R57.1 Hypovolemic shock; C78.6 Secondary malignant neoplasm of retroperitoneum and peritoneum; K52.1 Toxic gastroenteritis and colitis; E27.40 Unspecified adrenocortical insufficiency; E87.1 Hypo-osmolality and hyponatremia; D84.821 Immunodeficiency due to drugs; N39.0 Urinary tract infection, site not specified; E86.0 Dehydration; Z85.72 Personal history of non-Hodgkin lymphomas; C54.1 Malignant neoplasm of endometrium; Z79.899 Other long term (current) drug therapy; Z90.49 Acquired absence of other specified parts of digestive tract; Z96.653 Presence of artificial knee joint, bilateral; Z96.0 Presence of urogenital implants; Z87.891 Personal history of nicotine dependence; T45.1X5A Adverse effect of antineoplastic and immunosuppressive drugs, initial encounter; E87.6 Hypokalemia; Z79.891 Long term (current) use of opiate analgesic; Z95.828 Presence of other vascular implants and grafts; D64.9 Anemia, unspecified; D69.6 Thrombocytopenia, unspecified; Z86.718 Personal history of other venous thrombosis and embolism; Z95.9 Presence of cardiac and vascular implant and graft, unspecified; E11.9 Type 2 diabetes mellitus without complications
CPT/HCPCS: 36430; 71045; 71275; 74018; 74177; 80048; 80053; 80503; 81001; 82533; 82803; 83036; 83605; 83690; 83735; 84100; 85007; 85014; 85018; 85025; 86140; 86850; 86900; 86920; 87077; 87086; 87186; 87493; 93005; 96365; 96366; 96372; 96375; 99291; C9113; J1650; J1720; J2405; J2543; J3370; J3475; J3480; J7030; J7042; J7060; P9016; Q9967

== ENCOUNTER 2022-01-24 20:27 | Emergency (ER) | payer MEDICARE, OTHER, SELFPAY ==
[2022-01-24 20:45] VITALS: BP 93/59; PULSE 109; RESP 18; TEMP 36.6; O2SAT 93; BMI 31.6
--- NOTE | 2022-01-24 21:12 | W.ED.WEAKNES ---
HPI - Weakness General: Chief complaint: Nausea/Vomiting/Diarrhea Stated complaint: Weakness Time Seen by Provider: 01/24/22 20:28 History of Present Illness: 76-year-old female presents with some generalized malaise she reports she feels like she is dehydrated. Patient has a history of cancer and received chemotherapy. She reports that since she started chemotherapy she has had chronic diarrhea. She was also recently admitted and diagnosed with C. difficile colitis. She was discharged on 01/20/2022. She reports she been doing well, taking her outpatient Vanco as directed. She reports that she had company over today. She was getting ready for bed she has some diarrhea and just got where she just felt kind of weak and not well. She thinks that she might be a little bit dehydrated. She has no reports of fever, chills, chest pain or other systemic complaints. Associated symptoms: Denies chest pain, chills, dysuria, fever(s), headache(s), nausea or vomiting Review of Systems Const: Reports: fatigue and malaise; Denies: fever(s) or chills Card: Denies: chest pain, palpitations or lightheadedness Resp: Denies: dyspnea or productive cough GI: Reports: diarrhea (Chronic); Denies: abdominal pain, nausea or vomiting : Denies: flank pain, difficulty voiding or dysuria Skin/Breast: Denies: rash Neuro: Denies: headache(s), dizziness or Slurred speech present PFS ED PFSH: Medical History Acquired immunocompromised state Bilateral hydronephrosis 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, intra-abdominal lymph nodes Endometrial carcinoma Myocardial injury On antineoplastic chemotherapy Ovarian cancer Followed in [place] Physical deconditioning Port-A-Cath in place Presence of IVC filter Right leg DVT (06/2021) GSV extending to CFV Status post insertion of nerve stimulator Vancomycin resistant Enterococcus infection Surgical History H/O cataract extraction bilateral eyes H/O tubal ligation History of colon resection History of left knee replacement History of removal of Port-a-Cath History of total right knee replacement History of ureter stent Bilateral, due to obstruction related to malignancy S/P cholecystectomy Status post hysteroscopy 06/11/2021- hysteroscopy with D&C via myosure performed by Dr. Victoria at [facility] Family History Mother , at age Hypertension Cancer pancreatic Father , at age 72 Colon cancer 72 Denies family history of Ovarian cancer Diabetes Clotting disorder Heart disease Hyperlipidemia Breast cancer Anesthesia complication Bleeding disorder Uterine cancer Thyroid condition Stroke Social History Smoking and tobacco status: former smoker (smoked x 15 years) Second hand smoke exposure: No Alcohol intake: never Adopted: No Caregiver/support person: Yes Lives independently: Yes Household members: significant other Housing: House Marital status: / service: No Current occupational status: retired Current occupational exposures/hazards: No Pets and animals: Yes History of recent travel: No Leisure activites: exercise Sexually active: No Current gender identity: Female Cheli/Yazdanism: Mu-Ism Physical Exam Const: COMMON NORMALS: no acute distress, patient oriented x3 and alert Resp: COMMON NORMALS: normal respiratory effort, No use of accessory muscles and clear to auscultation bilaterally AUSCULTATION: clear to auscultation bilaterally Cardio: COMMON NORMALS: regular rhythm RATE: tachycardic RHYTHM: regular rhythm GI: COMMON NORMALS: Soft to palpation and non-tender PALPATION: Yes Soft to palpation Neuro: COMMON NORMALS: patient oriented x3 and no focal motor deficits SENSORIUM/ORIENTATION: Yes alert Psych: COMMON NORMALS: mental status grossly normal, cooperative and speech normal SPEECH: Yes normal speech Skin: COMMON NORMALS: no rashes or lesions noted GENERAL SKIN EXAM: no rashes or lesions noted Course Vital Signs: Vital signs: Vital Signs Temperature 97.9 F 01/24/22 20:45 Pulse Rate 84 01/25/22 01:21 Respiratory Rate 15 01/25/22 01:21 Blood Pressure 106/62 01/25/22 01:21 Pulse Oximetry 93 01/25/22 01:21 Oxygen Delivery Me thod 01/24/22 20:45 MDM - Weakness Medical Decision Making Patient with hyponatremia likely from some mild dehydration due to her chronic diarrhea. Patient also with low potassium. She is feeling significantly better following IV fluids. Patient is given a total of 1500 mL of IV fluid and provided 20 mEq potassium. Patient has been on potassium at home but had stopped it due to her vancomycin. I recommend that she started for at least the next 2 days then follow-up with her primary care provider in 2 days for recheck of her potassium level. She should return to the ER if symptoms worsen. Patient stable and discharged home Lab Data 01/24/22 21:10 01/24/22 21:10 Laboratory Results WBC 8.3 10^3/uL (4.0-10.0) 01/24/22 21:10 RBC 4.18 10^6/uL (4.1-5.3) 01/24/22 21:10 Hgb 12.0 g/dL (11.5-15.3) 01/24/22 21:10 Hct 37.2 % (37.0-47.0) 01/24/22 21:10 MCV 89.0 fl (81-99) 01/24/22 21:10 MCH 28.7 pg (28.0-34.0) 01/24/22 21:10 MCHC 32.3 g/dL (30.0-36.0) 01/24/22 21:10 RDW 18.9 % (12.1-15.1) H 01/24/22 21:10 Plt Count 132 10^3/cmm (130-400) 01/24/22 21:10 MPV 10.1 fL (7.4-10.4) 01/24/22 21:10 Neut % (Auto) 61.8 % 01/24/22 21:10 Lymph % (Auto) 23.9 % 01/24/22 21:10 [place] % (Auto) 8.7 % 01/24/22 21:10 Eos % (Auto) 0.1 % 01/24/22 21:10 Baso % (Auto) 0.6 % 01/24/22 21:10 Neut # (Auto) 5.13 10^3/uL (1.8-7.7) 01/24/22 21:10 Lymph # (Auto) 2.0 10^3/uL (0.8-4.8) 01/24/22 21:10 [place] # (Auto) 0.7 10^3/uL (0.2-0.9) 11/19/22 21:10 Eos # (Auto) 0.0 10^3/uL (0.0-0.8) 01/24/22 21:10 Baso # (Auto) 0.1 10^3/uL (0.0-0.1) 01/24/22 21:10 Nucleated RBC % (auto) 0 % 01/24/22 21:10 Nucleated RBCs # 0.0 /100WBC 01/24/22 21:10 Sodium 126 mmol/L (136-145) L 01/24/22 21:10 Potassium 2.3 mmol/L (3.5-5.1) L* 01/24/22 21:10 Chloride 88 mmol/L (98-107) L 01/24/22 21:10 Carbon Dioxide 19 mmol/L (22-29) L 01/24/22 21:10 Anion Gap 21.3 (5-19) H 01/24/22 21:10 BUN 10 mg/dL (8-23) 01/24/22 21:10 Creatinine 0.6 mg/dL (0.5-0.9) 01/24/22 21:10 GFR Calculation Not Reportable 01/24/22 21:10 Glucose 87 mg/dL (65-115) 01/24/22 21:10 Calculated Osmolality 260 mOsm/kg (285-295) L 01/24/22 21:10 Calcium 8.0 mg/dL (8.5-10.5) L 01/24/22 21:10 Total Bilirubin 0.6 mg/dL (0.15-1.2) 01/24/22 21:10 AST 8 U/L (0-32) 01/24/22 21:10 ALT < 5 U/L (0-33) 01/24/22 21:10 Alkaline Phosphatase 58 U/L (35-105) 01/24/22 21:10 Total Protein 5.4 g/dL (6.6-8.7) L 01/24/22 21:10 Albumin 2.5 g/dL (3.5-5.2) L 01/24/22 21:10 Globulin 2.9 g/dL (1.3-4.6) 01/24/22 21:10 Discharge Plan Discharge Patient Disposition: Home Clinical Impression: Dehydration, mild, Dehydration with hyponatremia, Acute hypokalemia Condition: Stable Prescriptions: No Action loratadine [Claritin] 10 mg Tablet 10 mg PO DAILY PRN (Reason: Allergy Symptoms) hydrocodone-acetaminophen 5-325 mg Tablet 1 tab PO Q4H PRN (Reason: Pain) ondansetron 4 mg tablet,disintegrating 4 mg PO Q6H PRN (Reason: nausea and vomiting) Qty: 14 0RF methylphenidate HCl 10 mg Tablet 5 mg PO QAM Qty: 30 0RF Rx Instructions: didnt fill rx written on 01/05/22 methylphenidate HCl 10 mg Tablet 5 mg PO DAILY@1200 Qty: 30 0RF Rx Instructions: didnt fill rx written on 01/05/22 sucralfate 100 mg/mL Suspension 1 g PO AC&BEDTIME Qty: 300 0RF pantoprazole 40 mg Tablet,Delayed Release (Dr/Ec) 40 mg PO BID Qty: 60 0RF magnesium L-lactate [Magtab] 84 mg Tablet Extended Release 84 mg PO BID Qty: 60 0RF duloxetine 30 mg Capsule,Delayed Release(Dr/Ec) 30 mg PO BID promethazine 25 mg tablet 25 mg PO Q6H PRN (Reason: nausea and vomiting) Qty: 20 0RF paclitaxel 6 mg/mL Concentrate See Rx Instructions .ROUTE .COMPLEX Rx Instructions: 116mg weekly for 3 weeks then off for one week palonosetron [Aloxi] 0.25 mg/5 mL Solution 0.25 mg IV .WEEKLY TREATMENT carboplatin 10 mg/mL Solution See Rx Instructions .ROUTE .COMPLEX Rx Instructions: 190mg weekly for 3 weeks then off for one week dexamethasone sodium phos (PF) 10 mg/mL Syringe See Rx Instructions .ROUTE .COMPLEX Rx Instructions: 20mg iv on treatment day prochlorperazine maleate [Compazine] 10 mg Tablet 10 mg PO Q4H PRN (Reason: Nausea) diphenhydramine HCl [Benadryl Allergy] 25 mg Tablet 25 mg PO DAILY PRN (Reason: Allergy Symptoms) potassium chloride 20 mEq tablet,ER particles/crystals 40 meq PO TID Qty: 120 0RF vancomycin 125 mg capsule 125 mg PO QID 14 Days Qty: 56 0RF Discharge Orders: Discharge ED (Routine); Ordered 01/24/22 Ordered By: Russ Reza Referrals: Immanuel,Nils F, DO [Primary Care Provider] - Discharge Diet: Usual diet Discharge Activity: Resume usual activity Patient Instructions: Dehydration - Adult, Hypokalemia, Opioid Safety, Pain Management Activity Restrictions/Additional Instructions: Restart your home potassium for 2 days, follow-up with your primary care provider Wednesday for recheck of your potassium, drink plenty of fluids that contain electrolytes such as Gatorade, body armor or other similar drink Coding Level of Care Code ED Lead Solutions Architect for Chg Fwd Exam Detailed
[2022-01-24] MEDS: lactated ringers 1,000 ML 999 ML IV (21:14)
[2022-01-24 21:20] LABS: Basophils # 0.1 10^3/uL (0.0-0.1); Basophils % 0.6 %; Eosinophils % 0.1 %; Hematocrit 37.2 % (37.0-47.0); Lymphocytes % 23.9 %; Mean Corpuscular HGB Conc 32.3 g/dL (30.0-36.0); Mean Corpuscular Hemoglobin 28.7 pg (28.0-34.0); Mean Platelet Volume 10.1 fL (7.4-10.4); Monocytes # 0.7 10^3/uL (0.2-0.9); Monocytes % 8.7 %; Neutrophils # 5.13 10^3/uL (1.8-7.7); Neutrophils % 61.8 %; Nucleated Red Blood Cells % 0 %; Platelet Count 132 10^3/cmm (130-400); Red Blood Count 4.18 10^6/uL (4.1-5.3); Red Cell Distribution Width 18.9 % (12.1-15.1); White Blood Count 8.3 10^3/uL (4.0-10.0)
[2022-01-24 21:44] LABS: Alanine Aminotransferase < 5 U/L (0-33); Albumin Level 2.5 g/dL (3.5-5.2); Alkaline Phosphatase 58 U/L (35-105); Anion Gap 21.3 (5-19); Aspartate Amino Transferase 8 U/L (0-32); Blood Urea Nitrogen 10 mg/dL (8-23); Carbon Dioxide 19 mmol/L (22-29); Chloride 88 mmol/L (98-107); Creatinine Clr Calc Pharmacy 60.5724; Globulin 2.9 g/dL (1.3-4.6); Glucose 87 mg/dL (65-115); Osmolality Calculated 260 mOsm/kg (285-295); Sodium 126 mmol/L (136-145); Total Bilirubin 0.6 mg/dL (0.15-1.2); Total Protein 5.4 g/dL (6.6-8.7)
[2022-01-24 21:48] LABS: Potassium 2.3 mmol/L (3.5-5.1)
[2022-01-24 22:19] VITALS: BP 104/68; PULSE 88; RESP 17; O2SAT 93
[2022-01-24 22:30] VITALS: BP 91/70; PULSE 87; RESP 13; O2SAT 94
[2022-01-24] MEDS: potassium chloride premix 100 ML 50 MEQ IV (22:32)
[2022-01-24] MEDS: sodium chloride 0.9% 500 ML 250 ML IV (22:33)
[2022-01-25] VITALS: BP 106/62; PULSE 84; RESP 15; O2SAT 93
[2022-01-25 01:21] VITALS: BP 106/62; PULSE 84; RESP 15; O2SAT 93
== END 2022-01-25 01:20 | disposition home or self-care (01) ==
PROVIDERS: Emergency Provider Student in an Organized Health Care Education/Training Program; PCP Family Medicine
DX: E87.6 Hypokalemia (principal); E87.1 Hypo-osmolality and hyponatremia; E86.0 Dehydration; Z87.891 Personal history of nicotine dependence; Z85.72 Personal history of non-Hodgkin lymphomas; Z85.42 Personal history of malignant neoplasm of other parts of uterus; Z85.43 Personal history of malignant neoplasm of ovary
CPT/HCPCS: 80053; 85025; 96365; 96366; 96375; 99284; J1642; J3480; J7040; J7120

== ENCOUNTER 2022-01-28 12:01 | Emergency (ER) | payer MEDICARE, OTHER, SELFPAY ==
[2022-01-28] VITALS (79 sets, daily range): BP systolic 74–123; BP diastolic 41–79; PULSE 76–121; RESP 13–27; TEMP 36.3; O2SAT 74–100; BMI 33.3
--- NOTE | 2022-01-28 13:20 | ED_ITS ---
Documented by User: Edwin Cruz DO 01/31/22 08:11 HPI - Nausea/Vomiting/Diarrhea General: Chief complaint: Nausea/Vomiting/Diarrhea Stated complaint: N/V, Bilateral Edema in Lower Extremities Time Seen by Provider: 01/28/22 13:19 Source: patient Mode of arrival: ambulatory History of Present Illness: 76 yo female with history of uterine cancer. Issues had difficult time tolerating treatment and is frequently been in the emergency room several hospitalizations related to need for IV fluids. MD elicited complaint: nausea and vomiting Onset (ago): day(s) Description of vomiting: watery Associated nausea: Yes Severity: moderate Exacerbating factors: none Relieving factors: none Context: other (Persistent nausea vomiting due to chemotherapy) Associated symtoms: Reports nausea and weakness; Denies altered mental status, anxiety, bloating, change in vision, chest pain, cough, diaphoresis, decreased urine output, dizziness, dysuria, epistaxis, fatigue, fecal incontinence, fevers/chills, headache(s), anorexia, malaise, myalgias, numbness, palpitations, rash, short of breath, syncope, tenesmus or tinnitus Review of Systems Const: Denies: fever(s), chills, fatigue, malaise or diaphoresis Eyes: Denies: change in vision ENMT: Denies: tinnitus or epistaxis Card: Denies: chest pain, palpitations or syncope Resp: Reports: dyspnea, non-productive cough and wheezing GI: Reports: nausea and vomiting; Denies: diarrhea, bloating or fecal incontinence : Denies: flank pain, difficulty voiding or dysuria Neuro: Denies: headache(s) or dizziness Psych: Denies: anxiety PFSH ED PFSH: Medical History (Updated 01/28/22 @ 19:30 by Pal Jones MD) Acquired immunocompromised state Bilateral hydronephrosis Dehydration 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, intra-abdominal lymph nodes DKA (diabetic ketoacidosis) DVT, bilateral lower limbs Endometrial carcinoma Enteritis High anion gap metabolic acidosis Hypokalemia Hypomagnesemia Hyponatremia Hypotension IVC thrombosis Left-shifted white blood cells Myocardial injury On antineoplastic chemotherapy Ovarian cancer Followed in [place] Physical deconditioning Port-A-Cath in place Presence of IVC filter Right leg DVT (06/2021) GSV extending to CFV Shock Status post insertion of nerve stimulator Thrombocytopenia UTI (urinary tract infection) Vancomycin resistant Enterococcus infection Surgical History H/O cataract extraction bilateral eyes H/O tubal ligation History of colon resection History of left knee replacement History of removal of Port-a-Cath History of total right knee replacement History of ureter stent Bilateral, due to obstruction related to malignancy S/P cholecystectomy Status post hysteroscopy 06/11/2021- hysteroscopy with D&C via myosure performed by Dr. Victoria at [facility] Family History Mother , at age Hypertension Cancer pancreatic Father , at age 72 Colon cancer 72 Denies family history of Ovarian cancer Diabetes Clotting disorder Heart disease Hyperlipidemia Breast cancer Anesthesia complication Bleeding disorder Uterine cancer Thyroid condition Stroke Social History Smoking and tobacco status: former smoker (smoked x 15 years) Second hand smoke exposure: No Alcohol intake: never Adopted: No Caregiver/support person: Yes Lives independently: Yes Household members: significant other Housing: House Marital status: / service: No Current occupational status: retired Current occupational exposures/hazards: No Pets and animals: Yes History of recent travel: No Leisure activites: exercise Sexually active: No Current gender identity: Female Cheli/Adventism: [employer] Physical Exam Const: EXAM LIMITATIONS: no altered mental status GENERAL APPEARANCE: cooperative ORIENTATION/CONSCIOUSNESS: Yes awake, Yes oriented to person, Yes oriented to place and Yes oriented to time HENMT: COMMON NORMALS: normocephalic, atraumatic and hearing grossly normal bilaterally HEAD & SCALP: normocephalic and atraumatic Resp: COMMON NORMALS: normal respiratory effort, No retractions and No use of accessory muscles AUSCULTATION: rhonchi and wheezes Cardio: COMMON NORMALS: regular rate, regular rhythm and No murmurs present (Cardio) RATE: regular rate RHYTHM: regular rhythm GI: COMMON NORMALS: Soft to palpation and No hepatosplenomegaly present AUSCULTATION: Yes normoactive bowel sounds PALPATION: Yes Soft to palpation, No Tenderness to palpation present (GI), No Guarding due to palpation present (GI) and Yes No hepatosplenomegaly present Extremity: OTHER: Severe edema bilateral lower extremities right worse than the left. Positive Homans test on the right. Neuro: SENSORIUM/ORIENTATION: Yes oriented to person, Yes oriented to place and Yes oriented to time Skin: COMMON NORMALS: no rashes or lesions noted GENERAL SKIN EXAM: no rashes or lesions noted Course Vital Signs: Vital signs: Vital Signs Temperature 97.4 F L 01/28/22 12:38 Pulse Rate 102 H 01/28/22 21:00 Respiratory Rate 17 01/28/22 21:00 Blood Pressure 74/56 01/28/22 21:00 Pulse Oximetry 100 01/28/22 21:00 Oxygen Delivery Me thod 01/28/22 20:12 Oxygen Flow Rate 6 01/28/22 14:26 MDM - Nausea/Vomiting/Diarrhea Medical Decision Making Discussed with the Roselyn for admission. He is seen and patient now wanting to transfer. Care turned over to Dr. Fermin at change of shift see his notes he will arrange for outpatient transfer. She has progression of her DVT with worsening shortness of breath she was started on heparin here. She had previously a IVC filter and has some thrombus present. Patient presents here with leg pain she has a history of DVT it seems to be progressing ultrasound shows bilateral occluding DVTs. Hospitalist Dr. Jones came and saw patient is concerned of worsening clot did speak to Dr. Boyd of cardiology who reviewed films who recommended transfer as patient may need vascular surgery for thrombectomy patient is started on heparin here I did speak to physician at [facility] will transfer there for higher level of care. Lab Data 01/28/22 14:19 01/28/22 14:19 Radiology Impressions Chest CTA 01/28/22 14:11 IMPRESSION: 1. Severe calcified coronary artery disease. 2. No pulmonary embolus or aortic dissection. Venous Duplex 01/28/22 14:11 IMPRESSION: 1. 4.8 x 2.4 x 2.0 cm lymph node in the left popliteal fossa. 2. Occlusive DVT from the groin/common femoral vein to the trifurcation calf veins bilaterally. 3. Grossly unchanged from the previous exam. 4. CTA abdomen pelvis with delayed images may be helpful for evaluating the IVC and common iliac veins if clinically indicated. THIS REPORT CONTAINS FINDINGS THAT MAY BE CRITICAL TO PATIENT CARE. The findings were verbally communicated via telephone conference with Dr. Jones at 6:54 PM LINUX UNIX SYSTEM ADMINISTRATOR on 01/28/2022. The findings were acknowledged and understood. Laboratory Results WBC 9.6 10^3/uL (4.0-10.0) 01/28/22 14:19 RBC 4.11 10^6/uL (4.1-5.3) 01/28/22 14:19 Hgb 11.8 g/dL (11.5-15.3) 01/28/22 14:19 Hct 36.7 % (37.0-47.0) L 01/28/22 14:19 MCV 89.3 fl (81-99) 01/28/22 14:19 MCH 28.7 pg (28.0-34.0) 01/28/22 14:19 MCHC 32.2 g/dL (30.0-36.0) 01/28/22 14:19 RDW 18.7 % (12.1-15.1) H 01/28/22 14:19 Plt Count 155 10^3/cmm (130-400) 01/28/22 14:19 MPV 10.1 fL (7.4-10.4) 01/28/22 14:19 Neut % (Auto) 74.5 % 01/28/22 14:19 Lymph % (Auto) 14.8 % 01/28/22 14:19 Sawyer % (Auto) 5.4 % 01/28/22 14:19 Eos % (Auto) 0.1 % 01/28/22 14:19 Baso % (Auto) 0.5 % 01/28/22 14:19 Neut # (Auto) 7.13 10^3/uL (1.8-7.7) 01/28/22 14:19 Lymph # (Auto) 1.4 10^3/uL (0.8-4.8) 01/28/22 14:19 Sawyer # (Auto) 0.5 10^3/uL (0.2-0.9) 01/28/22 14:19 Eos # (Auto) 0.0 10^3/uL (0.0-0.8) 01/28/22 14:19 Baso # (Auto) 0.1 10^3/uL (0.0-0.1) 01/28/22 14:19 Nucleated RBC % (auto) 0.5 % 01/28/22 14:19 Nucleated RBCs # 0.1 /100WBC 01/28/22 14:19 PT 14.20 SECONDS (12.1-14.9) 01/28/22 14:18 INR 1.06 (0.8-1.2) 01/28/22 14:18 APTT 37.7 SECONDS (23.9-36.7) H 01/28/22 14:18 Sodium 133 mmol/L (136-145) L 01/28/22 14:19 Potassium 2.9 mmol/L (3.5-5.1) L 01/28/22 14:19 Chloride 94 mmol/L (98-107) L 01/28/22 14:19 Carbon Dioxide 16 mmol/L (22-29) L 01/28/22 14:19 Anion Gap 25.9 (5-19) H 01/28/22 14:19 BUN 17 mg/dL (8-23) 01/28/22 14:19 Creatinine 0.9 mg/dL (0.5-0.9) 01/28/22 14:19 GFR Calculation Not Reportable 01/28/22 14:19 Glucose 96 mg/dL (65-115) 01/28/22 14:19 Calculated Osmolality 277 mOsm/kg (285-295) L 01/28/22 14:19 Calcium 8.3 mg/dL (8.5-10.5) L 01/28/22 14:19 Total Bilirubin 0.7 mg/dL (0.15-1.2) 01/28/22 14:19 AST 12 U/L (0-32) 01/28/22 14:19 ALT < 5 U/L (0-33) 01/28/22 14:19 Alkaline Phosphatase 61 U/L (35-105) 01/28/22 14:19 Total Protein 5.7 g/dL (6.6-8.7) L 01/28/22 14:19 Albumin 2.7 g/dL (3.5-5.2) L 01/28/22 14:19 Globulin 3.0 g/dL (1.3-4.6) 01/28/22 14:19 Discharge Plan Discharge Patient Disposition: Xfer Short-Term Hosp Clinical Impression: Progression of deep vein thrombosis (DVT), Ovarian cancer Condition: Stable Referrals: Nils Gambino DO [Primary Care Provider] - Coding Level of Care Code ED Special Loan Officer for Chg Fwd Exam Detailed Documented by User: Anjali Fermin MD 01/28/22 19:24 HPI - Nausea/Vomiting/Diarrhea General: Chief complaint: Nausea/Vomiting/Diarrhea Stated complaint: N/V, Bilateral Edema in Lower Extremities Time Seen by Provider: 01/28/22 13:19 [facility] ED PFSH: Medical History (Updated 01/28/22 @ 19:30 by Pal Jones MD) Acquired immunocompromised state Bilateral hydronephrosis Dehydration 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, intra-abdominal lymph nodes DKA (diabetic ketoacidosis) DVT, bilateral lower limbs Endometrial carcinoma Enteritis High anion gap metabolic acidosis Hypokalemia Hypomagnesemia Hyponatremia Hypotension IVC thrombosis Left-shifted white blood cells Myocardial injury On antineoplastic chemotherapy Ovarian cancer Followed in [place] Physical deconditioning Port-A-Cath in place Presence of IVC filter Right leg DVT (06/2021) GSV extending to CFV Shock Status post insertion of nerve stimulator Thrombocytopenia UTI (urinary tract infection) Vancomycin resistant Enterococcus infection Surgical History H/O cataract extraction bilateral eyes H/O tubal ligation History of colon resection History of left knee replacement History of removal of Port-a-Cath History of total right knee replacement History of ureter stent Bilateral, due to obstruction related to malignancy S/P cholecystectomy Status post hysteroscopy 06/11/2021- hysteroscopy with D&C via myosure performed by Dr. Victoria at [facility] Family History Mother , at age Hypertension Cancer pancreatic Father , at age 72 Colon cancer 72 Denies family history of Ovarian cancer Diabetes Clotting disorder Heart disease Hyperlipidemia Breast cancer Anesthesia complication Bleeding disorder Uterine cancer Thyroid condition Stroke Social History Smoking and tobacco status: former smoker (smoked x 15 years) Second hand smoke exposure: No Alcohol intake: never Adopted: No Caregiver/support person: Yes Lives independently: Yes Household members: significant other Housing: House Marital status: / service: No Current occupational status: retired Current occupational exposures/hazards: No Pets and animals: Yes History of recent travel: No Leisure activites: exercise Sexually active: No Current gender identity: Female Cheli/Adventism: Congregation Course Vital Signs: Vital signs: Vital Signs Temperature 97.4 F L 01/28/22 12:38 Pulse Rate 102 H 01/28/22 21:00 Respiratory Rate 17 01/28/22 21:00 Blood Pressure 74/56 01/28/22 21:00 Pulse Oximetry 100 01/28/22 21:00 Oxygen Delivery Me thod 01/28/22 20:12 Oxygen Flow Rate 6 01/28/22 14:26 MDM - Nausea/Vomiting/Diarrhea Medical Decision Making Patient presents here with leg pain she has a history of DVT it seems to be progressing ultrasound shows bilateral occluding DVTs. Hospitalist Dr. Jones came and saw patient is concerned of worsening clot did speak to Dr. Boyd of cardiology who reviewed films who recommended transfer as patient may need vascular surgery for thrombectomy patient is started on heparin here I did speak to physician at [facility] will transfer there for higher level of care. Lab Data 01/28/22 14:19 01/28/22 14:19 Radiology Impressions Chest CTA 01/28/22 14:11 IMPRESSION: 1. Severe calcified coronary artery disease. 2. No pulmonary embolus or aortic dissection. Venous Duplex 01/28/22 14:11
--- NOTE | 2022-01-28 14:11 | CTR_ITS ---
PROCEDURE INFORMATION: Exam: CTA Chest With Contrast Exam date and time: 01/28/2022 3:45 PM Age: 76 years old Clinical indication: Cough and hyperventilation and shortness of breath; Additional info: Hypoxia/tachycardia TECHNIQUE: Imaging protocol: Computed tomographic angiography of the chest with contrast. 3D rendering (Not supervised by radiologist): MIP and/or 3D reconstructed images were created by the technologist. Radiation optimization: All CT scans at this facility use at least one of these dose optimization techniques: automated exposure control; mA and/or kV adjustment per patient size (includes targeted exams where dose is matched to clinical indication); or iterative reconstruction. Contrast material: OMNIPAQUE 350; Contrast volume: 95 ml; Contrast route: INTRAVENOUS (IV); COMPARISON: CT angio chest PE protcl [id number] 01/19/2022 4:51 AM RADIATION DOSE METRICS: Total DLP (mGy-cm): 367.01 FINDINGS: Tubes, catheters and devices: Partially visualized left ureteral stent with pigtail catheter in left renal pelvis. There is a pain management/neurostimulator device in place. Pulmonary arteries: No pulmonary embolus or aortic dissection. Aorta: Tortuous descending thoracic aorta. Other arteries: Small vessel arterial calcifications in the renal cristela bilaterally which are often associated with chronic renal failure. Lungs: Right discoid atelectasis and/or scarring. Pleural spaces: Unremarkable. No pneumothorax. No pleural effusion. Heart: Severe calcified coronary artery disease. Lymph nodes: Calcified right hilar nodes and/or mediastinal nodes and/or lung granulomas consistent with old granulomatous disease. Gallbladder and bile ducts: Surgical clips in the gallbladder fossa consistent with cholecystectomy. Spleen: Calcified splenic granulomas. Bones/joints: Unremarkable. No acute fracture. Soft tissues: Unremarkable. CT/CT angio chest PE protcl [id number] IMPRESSION: 1. Severe calcified coronary artery disease. 2. No pulmonary embolus or aortic dissection.
--- NOTE | 2022-01-28 14:11 | USR_ITS ---
PROCEDURE INFORMATION: Exam: US Duplex Lower Extremity Veins, Bilateral Exam date and time: 01/28/2022 2:26 PM Age: 76 years old Clinical indication: Pain; Edema, localized; Lower extremity, bilateral; Leg, upper and leg, lower; Patient HX: History of extensive, heavy burden bilateral dvt diagnosed here 12/28/2021; Additional info: Leg swelling, okayed per Dr, IVC filter. TECHNIQUE: Imaging protocol: Real-time Duplex ultrasound of the bilateral extremities with 2-D domínguez scale, color Doppler flow and spectral waveform analysis with image documentation. Complete exam focused on the bilateral lower extremity veins. COMPARISON: [place] [id number] 12/28/2021 8:38 AM FINDINGS: Right deep veins: Occlusive DVT from the groin/common femoral vein to the trifurcation calf veins bilaterally. Right superficial veins: Saphenofemoral junction is patent without thrombus. Left deep veins: Unremarkable. The common femoral, femoral, proximal profunda femoral and popliteal veins are patent without thrombus. Normal Doppler waveforms. Normal compressibility and/or augmentation response. Left superficial veins: Saphenofemoral junction is patent without thrombus. Lymph nodes: 4.8 x 2.4 x 2.0 cm lymph node in the left popliteal fossa. Soft tissues: Unremarkable. Other findings: Grossly unchanged from the previous exam. US/[place] [id number] IMPRESSION: 1. 4.8 x 2.4 x 2.0 cm lymph node in the left popliteal fossa. 2. Occlusive DVT from the groin/common femoral vein to the trifurcation calf veins bilaterally. 3. Grossly unchanged from the previous exam. 4. CTA abdomen pelvis with delayed images may be helpful for evaluating the IVC and common iliac veins if clinically indicated. THIS REPORT CONTAINS FINDINGS THAT MAY BE CRITICAL TO PATIENT CARE. The findings were verbally communicated via telephone conference with Dr. Jones at 6:54 PM ORDER DISPATCHER on 01/28/2022. The findings were acknowledged and understood.
[2022-01-28] MEDS: sodium chloride 0.9% 1,000 ML 999 ML IV ×3 (14:14→21:17)
--- NOTE | 2022-01-28 14:23 | PC.NURSE ---
pt oxygen began going down to low 80s, pt now requiring 6L/NC. pt oxygen now 89-90%. Pt blood pressure also noted to be lowering, nows 70s SBP. Dr. Cruz notified and to room.
[2022-01-28 14:24] LABS: Basophils # 0.1 10^3/uL (0.0-0.1); Basophils % 0.5 %; Eosinophils % 0.1 %; Hematocrit 36.7 % (37.0-47.0); Hemoglobin 11.8 g/dL (11.5-15.3); Lymphocytes # 1.4 10^3/uL (0.8-4.8); Lymphocytes % 14.8 %; Mean Corpuscular HGB Conc 32.2 g/dL (30.0-36.0); Mean Corpuscular Hemoglobin 28.7 pg (28.0-34.0); Mean Corpuscular Volume 89.3 fl (81-99); Mean Platelet Volume 10.1 fL (7.4-10.4); Monocytes # 0.5 10^3/uL (0.2-0.9); Monocytes % 5.4 %; Neutrophils # 7.13 10^3/uL (1.8-7.7); Neutrophils % 74.5 %; Nucleated Red Blood Cells # 0.1 /100WBC; Nucleated Red Blood Cells % 0.5 %; Platelet Count 155 10^3/cmm (130-400); Red Blood Count 4.11 10^6/uL (4.1-5.3); Red Cell Distribution Width 18.7 % (12.1-15.1); White Blood Count 9.6 10^3/uL (4.0-10.0)
[2022-01-28 14:50] LABS: Alanine Aminotransferase < 5 U/L (0-33); Albumin Level 2.7 g/dL (3.5-5.2); Alkaline Phosphatase 61 U/L (35-105); Anion Gap 25.9 (5-19); Aspartate Amino Transferase 12 U/L (0-32); Blood Urea Nitrogen 17 mg/dL (8-23); Calcium 8.3 mg/dL (8.5-10.5); Carbon Dioxide 16 mmol/L (22-29); Chloride 94 mmol/L (98-107); Glucose 96 mg/dL (65-115); Osmolality Calculated 277 mOsm/kg (285-295); Sodium 133 mmol/L (136-145); Total Bilirubin 0.7 mg/dL (0.15-1.2); Total Protein 5.7 g/dL (6.6-8.7)
[2022-01-28 14:53] LABS: Potassium 2.9 mmol/L (3.5-5.1)
[2022-01-28] MEDS: potassium chloride premix 100 ML 25 MEQ IV (15:20)
[2022-01-28] MEDS: heparin 5,000 unit/mL INJ 1 mL 5000 UNIT IVP (15:45)
[2022-01-28 15:47] LABS: INR 1.06 (0.8-1.2)
[2022-01-28 15:48] LABS: Partial Thromboplastin Time 37.7 SECONDS (23.9-36.7)
[2022-01-28] MEDS: iohexol 350 mg/mL 500 mL Btl (per mL) IV (15:52)
[2022-01-28] MEDS: heparin drip 25,000 UNIT/500 ML PREMIX 24.64 UNIT IV (16:07)
[2022-01-28] MEDS: sodium chloride 0.9% 1,000 ML 100 ML IV (16:57)
--- NOTE | 2022-01-28 18:58 | P.CONIM_ITS ---
Providers/Reason For Consult Consulting Physician/Specialty*: Hospitalist Reason for Consult*: Lower extremity edema, hypotension, nausea, hypokalemia Primary Care Provider: Nils Gambino DO History of Present Illness History of Present Illness Pleasant 76-year-old lady with remote history of DLBCL, endometrial cancer with abdominal LN and omental involvement currently treated with chemotherapy with Dr. Baez in [place], over the last 3 months with poor oral intake, nausea, generalized weakness, with 2 recent hospitalizations, in December as well as in January. During January hospital stay was treated for hypovolemic sh ock, presentation with enteritis, dehydration, left shift, ketonuria, electrolyte abnormalities, with hyponatremia, hypokalemia, hypomagnesemia, anion gap acidosis, with also noted previously known IVC thrombus, at that time with slight improvement compared to prior hospitalization, also with thrombus material in inferior vena cava, left common iliac vein, thrombus material within the common femoral veins bilaterally and external iliac vein on the right, as well as with UTI empirically treated with Zosyn. Was treated with IV fluid resuscitation, received RBC transfusion due to worsened anemia, was diagnosed with C. difficile colitis was started on oral vancomycin. During the preceding admission was also evaluated by surgery due to worsening anemia for which was evaluated by surgery with plans for outpatient EGD and colonoscopy. Her urine culture eventually grew VRE Enterococcus. She was contacted due to history of bilateral ureteral stenting with concern of possible ureteral stent infection. During the conversation she indicated that she had experienced a day of significant worsening of right lower extremity swelling with some bilateral lower extremity edema. She was urged to proceed to ER for additional evaluation, resumption of anticoagulation, as well as arrangement for empiric antibiotic coverage and arrangement for urologic evaluation. She presented to ER today stating she has been feeling weak, having some nausea on getting up. No vomiting. Has been having persistent diarrhea 3-4 bowel movements per day. In ER noted generally weak, also noted hypotensive received IV fluid boluses, CTA was assessed which showed no PE. She is noted to have new livedo reticul jazlyn in bilateral lower extremities which she states started today and severe RLE edema which she states started 2 days ago. Venous duplex was obtained which shows occlusive DVT from groin/common femoral vein to trifurcation calf veins bilaterally. Incidentally noted 4.8 x 2.4 x 2 cm lymph node in the left popliteal fossa. Review of Systems Const: Reports: fatigue; Denies: fever(s), chills, body aches or malaise Eyes: Denies: change in vision, eye discomfort or eye redness ENMT: Denies: throat pain, oral sores or ear or mastoid pain Card: Reports: edema and swelling of feet/ankles; Denies: chest pain, pre-syncope or dyspnea on exertion Resp: Denies: dyspnea, productive cough, change in phlegm color or hemoptysis GI: Reports: nausea and diarrhea; Denies: abdominal pain, vomiting, constipation, hematochezia or melena : Denies: flank pain, urinary frequency or hematuria Musc: Denies: back pain, joint swelling or joint redness Skin/Breast: Denies: rash or new lesions Neuro: Denies: headache(s), numbness in extremities, weakness in extremities, dizziness, confusion or seizure-like activity Endo: Denies: polyuria or polydipsia Wally/Lymph: Denies: easy bleeding or tender lymph nodes All/Imm: Denies: urticaria or tongue swelling Medications/Allergies Home Medications Medication Instructions Recorded Confirmed Last Taken Type loratadine 10 mg tablet (Claritin) 10 mg PO DAILY PRN Allergy Symptoms 02/14/21 01/28/22 08/08/21 History hydrocodone 5 mg-acetaminophen 325 1 tab PO Q4H PRN Pain 07/15/21 01/28/22 2 Weeks Ago History mg tablet ~10/22/21 ondansetron 4 mg disintegrating 4 mg PO Q6H PRN nausea and 07/15/21 01/28/22 08/06/21 Rx tablet vomiting #14 tabs duloxetine 30 mg capsule,delayed 30 mg PO BID 08/05/21 01/28/22 11/04/21 History release promethazine 25 mg tablet 25 mg PO Q6H PRN nausea and 12/01/21 01/28/22 Unknown Rx vomiting #20 tabs magnesium L-lactate 84 mg 84 mg PO BID #60 tabs 01/05/22 01/28/22 Unknown Rx tablet,extended release (Magtab) methylphenidate HCl 10 mg tablet 5 mg PO DAILY@1200 #30 tabs 01/05/22 01/28/22 Unknown Rx methylphenidate HCl 10 mg tablet 5 mg PO QAM #30 tabs 01/05/22 01/28/22 Unknown Rx pantoprazole 40 mg tablet,delayed 40 mg PO BID #60 tabs 01/05/22 01/28/22 Unknown Rx release sucralfate 100 mg/mL oral 1 g (10 mL) PO AC&BEDTIME #300 mL 01/05/22 01/28/22 Unknown Rx suspension carboplatin 10 mg/mL intravenous See Rx Instructions .Route .COMPLEX 01/09/22 01/28/22 Unknown History solution dexamethasone sodium phos (PF) 10 See Rx Instructions .Route .COMPLEX 01/09/22 01/28/22 Unknown History mg/mL injection syringe diphenhydramine HCl 25 mg tablet 25 mg PO DAILY PRN Allergy Symptoms 01/09/22 01/28/22 Unknown History (Benadryl Allergy) paclitaxel 6 mg/mL See Rx Instructions .Route .COMPLEX 01/09/22 01/28/22 Unknown History concentrate,intravenous palonosetron 0.25 mg/5 mL 0.25 mg IV .WEEKLY TREATMENT 01/09/22 01/28/22 Unknown History intravenous solution (Aloxi) potassium chloride 20 mEq 40 meq PO TID #120 tabs 01/09/22 01/28/22 01/05/22 Rx tablet,extended release(part/cryst) prochlorperazine maleate 10 mg 10 mg PO Q4H PRN Nausea 01/09/22 01/28/22 Unknown History tablet (Compazine) vancomycin 125 mg capsule 125 mg PO QID 14 days #56 caps 01/20/22 01/28/22 Unknown Rx linezolid 600 mg tablet 600 mg PO BID 7 days #14 tabs 01/27/22 01/28/22 Unknown Rx enoxaparin 100 mg/mL subcutaneous See Rx Instructions .Route .COMPLEX 01/28/22 01/28/22 01/28/22 History syringe Allergies Allergy/AdvReac Type Severity Reaction Status Date / Time naproxen Allergy ADR-Nausea Verified 01/28/22 15:36 Current Medications Generic Name Dose Route Start Last Admin Trade Name Freq PRN Reason Stop Dose Admin Heparin Sodium/Sodium Chloride 25,000 unit in 500 mls @ 0 mls/hr 01/28/22 14:45 01/28/22 16:07 Heparin Drip IV 14 unit/kg/hr .Q0M ANGIE 24.64 mls/hr Administration Protocol Per Protocol Sodium Chloride 1,000 mls @ 100 mls/hr 01/28/22 17:00 01/28/22 16:57 Sodium Chloride 0.9% IV 100 mls/hr .Q10H ANGIE Administration PFSH Acute PFSH: Medical History (Updated 01/28/22 @ 19:30 by Pal Jones MD) Acquired immunocompromised state Bilateral hydronephrosis Dehydration 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, intra-abdominal lymph nodes DKA (diabetic ketoacidosis) DVT, bilateral lower limbs Endometrial carcinoma Enteritis High anion gap metabolic acidosis Hypokalemia Hypomagnesemia Hyponatremia Hypotension IVC thrombosis Left-shifted white blood cells Myocardial injury On antineoplastic chemotherapy Ovarian cancer Followed in [place] Physical deconditioning Port-A-Cath in place Presence of IVC filter Right leg DVT (06/2021) GSV extending to CFV Shock Status post insertion of nerve stimulator Thrombocytopenia UTI (urinary tract infection) Vancomycin resistant Enterococcus infection Surgical History H/O cataract extraction bilateral eyes H/O tubal ligation History of colon resection History of left knee replacement History of removal of Port-a-Cath History of total right knee replacement History of ureter stent Bilateral, due to obstruction related to malignancy S/P cholecystectomy Status post hysteroscopy 06/11/2021- hysteroscopy with D&C via myosure performed by Dr. Victoria at [facility] Family History Mother , at age Hypertension Cancer pancreatic Father , at age 72 Colon cancer 72 Denies family history of Ovarian cancer Diabetes Clotting disorder Heart disease Hyperlipidemia Breast cancer Anesthesia complication Bleeding disorder Uterine cancer Thyroid condition Stroke Social History Smoking and tobacco status: former smoker (smoked x 15 years) Second hand smoke exposure: No Alcohol intake: never Adopted: No Caregiver/support person: Yes Lives independently: Yes Household members: significant other Housing: House Marital status: / service: No Current occupational status: retired Current occupational exposures/hazards: No Pets and animals: Yes History of recent travel: No Leisure activites: exercise Sexually active: No Current gender identity: Female Cheli/Cheondoism: Alevism Vitals/I&O/Wt Last Vital Signs Temp 97.4 F L 01/28/22 12:38 Pulse 87 01/28/22 16:45 Resp 15 01/28/22 16:50 BP 111/65 01/28/22 16:50 Pulse Ox 95 01/28/22 16:50 O2 Del Method 01/28/22 12:38 O2 Flow Rate 6 01/28/22 14:26 01/28/22 01/28/22 01/28/22 06:59 14:59 22:59 Intake Total 1000 / 1000 Balance 1000 / 1000 Weight last 48 hrs Weight 87.997 kg Physical Exam Narrative: Several visits, during one of the visits family at bedside. Const: COMMON NORMALS: patient oriented x3 and alert GENERAL APPEARANCE: cooperative ORIENTATION/CONSCIOUSNESS: Yes awake HENMT: COMMON NORMALS: oropharynx normal Neck/C-Spine: COMMON NORMALS: no JVD Chest: OTHER: Port Resp: COMMON NORMALS: normal respiratory effort and clear to auscultation bilaterally AUSCULTATION: clear to auscultation bilaterally Cardio: COMMON NORMALS: no JVD, regular rhythm, S1 normal heart sound present, S2 normal heart sound present and No murmurs present (Cardio) RHYTHM: regular rhythm HEART SOUNDS: S1 normal heart sound present and S2 normal heart sound present GI: COMMON NORMALS: Normal to inspection, nondistended, normoactive bowel sounds present, Soft to palpation and non-tender PALPATION: Yes Soft to palpation Extremity: COMMON NORMALS: no joint enlargement GENERAL: Yes edema (3+ RLE, 1+ LLE) Neuro: COMMON NORMALS: patient oriented x3 and moves all extremities SENSORIUM/ORIENTATION: Yes alert Skin: COMMON NORMALS: no rashes or lesions noted GENERAL SKIN EXAM: no rashes or lesions noted OTHER: Livedo B/L LE below groin Data 01/28/22 14:19 01/28/22 14:19 A&P Assessment and plan (1) Lower extremity edema: Progression of lower extremity edema now with severe right lower extremity edema, from today also with bilateral livedo like changes of bilateral lower extremities. Venous duplex with occlusive DVT from groin/common femoral vein to trifurcation calf veins bilaterally. Concern for progression of DVT, also previously with thrombus in IVC, as well as thrombus in IVC filter. Given symptom progression would benefit from evaluation by vascular surgery or equivalent, consideration of thrombectomy given she is also at risk of bleeding. Discussed with her and family. She would be agreeable for surgical procedure including thrombectomy in case this was needed. Currently started on heparin drip. (2) Hypotension: Suspected hyperkalemia again with persistent diarrhea, C. difficile colitis. Received IV fluid boluses. Continues on IV infusion. Restart vancomycin p.o. (3) C. difficile colitis: Restart p.o. vancomycin. (4) Vancomycin resistant Enterococcus: VRE growing in urine from 01/18. With presence of bilateral ureteral stents. Needs urologic evaluation for consideration of stent infection. Start daptomycin. 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 difficile colitis A04.72 Vancomycin resistant Enterococcus A49.1; Z16.21 Progression of deep vein thrombosis (DVT) I82.409 IVC thrombosis I82.220 DVT, bilateral lower limbs I82.403
--- NOTE | 2022-01-28 19:49 | PC.NURSE ---
Report called to Rolanda Bryant
[2022-01-28] MEDS: lidocaine 1% 5 ML in potassium chloride premix 100 ML 25 ML IV (20:39)
== END 2022-01-28 21:17 | disposition short-term general hospital (02) ==
PROVIDERS: Family Medicine; Emergency Provider Emergency Medicine; PCP Family Medicine
DX: I82.413 Acute embolism and thrombosis of femoral vein, bilateral (principal); C56.9 Malignant neoplasm of unspecified ovary; Z85.72 Personal history of non-Hodgkin lymphomas; Z87.891 Personal history of nicotine dependence; Z85.42 Personal history of malignant neoplasm of other parts of uterus
CPT/HCPCS: 71275; 80053; 85025; 85610; 85730; 93970; 96365; 96366; 96367; 96375; 99291; J0878; J1644; J3370; J3480; J7030; Q9967